=== PATIENT | male | born 1955 | race Caucasian/White ===

== ENCOUNTER 2019-10-27 11:11 | Emergency (ER) | payer MEDICARE, MEDICAID, SELFPAY ==
--- NOTE | ~2019-10-27 | XR_ITS ---
XR forearm RT 2V 10/27/2019 11:34 INDICATION: Right arm pain PROCEDURE: 2 views right forearm COMPARISON: No prior studies for comparison. FINDINGS: Fracture, dislocation or subluxation is not identified. The soft tissues appear within norm al limits. No foreign bodies are identified. IMPRESSION: 1: NO ACUTE BONE OR JOINT ABNORMALITY IDENTIFIED. Reviewed, dictated and finalized at location A. FORM ATTENDANT
[2019-10-27 11:10] VITALS: BP 162/99; PULSE 134; RESP 22; TEMP 36.7; O2SAT 100
--- NOTE | 2019-10-27 11:15 | ED.UPPEXIN ---
HPI - Extremity Injury (Upper) General Chief Complaint: Extremity Injury, Upper Stated Complaint: right arm pain Time Seen by Provider: 10/27/19 11:15 Source: patient Mode of arrival: EMS Limitations: no limitations History of Present Illness HPI narrative: A 64 y/o male presents to the ED, via EMS, with c/o dorsal right forearm pain. Pt states that the right forearm pain started 2 days ago and has been intermittent since. He notes that rubbing the right forearm area alleviates the pain, and moving his right hand aggravates the pain. Pt denies numbness, tingling, and any injury or trauma that could cause the pain. Dr. Dawson is his PCP. He notes that he has chronic CP and has been seen multiple times for the CP. Pt was last seen in his PCP's office last week and was sent to [place] ED at that appointment. Pt lives alone. He is a smoker and has a PMHx of stress. MD complaint: injury to: forearm (Dorsal right) Onset (ago): day(s) (2) Other Extremity Injury: Right: forearm (Dorsal) Other injuries: none Relieving factors: other (Rubbing area) Exacerbating factors: other (Movement of right hand) Associated symptoms: denies other symptoms Related Data Home Medications Medication Instructions Recorded Confirmed Eliquis 5 mg PO BID 09/20/19 10/01/19 atorvastatin 20 mg PO HS 09/20/19 10/01/19 calcium carbonate-vitamin D3 1 tablet PO DAILY 09/20/19 10/01/19 [Calcium 500 + D] cholecalciferol (vitamin D3) 5,000 unit PO DAILY 09/20/19 10/01/19 [Vitamin D3] fluticasone propionate [Allergy 2 spray INTRANASAL DAILY 09/20/19 10/01/19 Relief (fluticasone)] gabapentin 300 mg PO TID 09/20/19 10/01/19 metoprolol tartrate 12.5 mg PO DAILY 09/20/19 10/01/19 omeprazole 20 mg PO DAILY 09/20/19 10/01/19 sertraline 50 mg PO DAILY 09/20/19 10/01/19 tamsulosin 0.4 mg PO DAILY 09/20/19 10/01/19 Spiriva Respimat 2 puff INHALATION DAILY 10/01/19 10/01/19 buspirone 10 mg PO DAILY 10/01/19 10/01/19 folic acid 1 mg PO DAILY 10/01/19 10/01/19 hydrocodone-acetaminophen 1 - 2 tablet PO Q4H PRN 10/01/19 10/01/19 Allergies Allergy/AdvReac Type Severity Reaction Status Date / Time albuterol AdvReac Shakiness Verified 10/27/19 11:39 Review of Systems Review of Systems: All systems reviewed & are unremarkable except as noted in HPI and below Musculoskeletal: Musculoskeletal: Reports other (Dorsal right forearm pain) Neurologic: Denies numbness and Denies tingling PMFSH Past Medical History Medical History A-fib Attempted cardioversion x2 without success Anemia Anxiety Aortic stenosis Atrial flutter Back pain BPH (benign prostatic hyperplasia) Bronchitis Cataracts, bilateral Chest pain, musculoskeletal CHF (congestive heart failure) EF of 50% and impaired diastolic relaxation grade 1 Chronic kidney disease COPD (chronic obstructive pulmonary disease) CVA (cerebral vascular accident) Right side effects Depression DVT (deep venous thrombosis) Emphysema of lung Epistaxis GERD (gastroesophageal reflux disease) Heart attack Hepatitis C History of angina History of rectal polyps HLD (hyperlipidemia) HTN (hypertension) Kidney stones Osteoporosis Pneumonia Tuberculosis Surgical History Surgical History History of appendectomy Hx of cardiac catheterization x2 Hx of spinal surgery Family History Family History Father Family history of coronary artery disease Family history of heart disease in male family member before age 55 Mother Family history of coronary artery disease Family history of heart disease in male family member before age 55 Social History Social History Social History: Lives alone, sister Felisa Jerome helps with his meds. he has 1 son. The patient used to smoke up to 2 packs of cigarettes a day and cut down to 1. He u
[2019-10-27] MEDS: LORAZEPAM 0.5 MG TABLET 1 MG PO (11:40)
[2019-10-27] MEDS: IBUPROFEN 600 MG TABLET PO (11:41)
[2019-10-27 12:11] VITALS: BP 105/87; PULSE 108; RESP 30; O2SAT 98
[2019-10-27] MEDS: METOPROLOL TARTRATE 50 MG TAB 25 MG PO (12:13)
[2019-10-27 12:23] VITALS: BP 121/111; PULSE 116; RESP 22; O2SAT 95
== END 2019-10-27 12:25 | disposition home or self-care (01) ==
PROVIDERS: Emergency Provider Emergency Medicine; PCP Internal Medicine
DX: M79.631 Pain in right forearm (principal); I11.0 Hypertensive heart disease with heart failure; F41.9 Anxiety disorder, unspecified; I48.91 Unspecified atrial fibrillation; Z79.01 Long term (current) use of anticoagulants; I48.92 Unspecified atrial flutter; N40.0 Benign prostatic hyperplasia without lower urinary tract symptoms; I50.9 Heart failure, unspecified; J43.9 Emphysema, unspecified; N28.9 Disorder of kidney and ureter, unspecified; Z86.718 Personal history of other venous thrombosis and embolism; K21.9 Gastro-esophageal reflux disease without esophagitis; I25.2 Old myocardial infarction; E78.5 Hyperlipidemia, unspecified; Z87.442 Personal history of urinary calculi; M81.0 Age-related osteoporosis without current pathological fracture; Z86.19 Personal history of other infectious and parasitic diseases; H26.9 Unspecified cataract; F17.210 Nicotine dependence, cigarettes, uncomplicated
CPT/HCPCS: 73090; 99283; A4565; A9270

== ENCOUNTER 2019-11-29 14:08 | Outpatient (CLI) | payer MEDICARE, OTHER, SELFPAY ==
--- NOTE | ~2019-11-29 | CT_ITS ---
EXAMINATION: CT chest wo con EXAM DATE: 11/29/2019 14:53 INDICATION: Right-sided chest wall pain. Torn muscle follow-up. TECHNIQUE: Spiral CT of the chest without contrast. Axial, coronal and sagittal images were reviewe d. Coronal maximum intensity pixel images of chest reviewed. The dose-length product (DLP) for this examination was 201.57 mGy-cm. The exposure was tailored according to patient size (auto mA exposur e control), and iterative reconstruction (ASIR) was used as additional dose reduction technique. Comp arison is made to prior examination from 10/18/2018. FINDINGS: The lungs are clear. There is mild emphysema. Mildly dilated pulmonary arteries. There are no pleural or pericardial effusions. Tracheobronchial tree is patent. There is no mediastinal, h ilar or axillary lymphadenopathy. There is no pneumothorax. Heart normal in size. There is mild coronary arterial calcification, arterial sclerosis. Suspicion of right middle lobe medial segmental mass measuring about 3 cm, incompletely imaged and in completely evaluated on this noncontrast chest CT. There are subacute right eighth-10th rib fractures laterally. These are new compared to previous exam ination. This is correlate to location of patient's pain? It indicate could more recent reinjury to t hese. There are old right rib fractures. IMPRESSION: 1. Suspicion of left liver lobe mass; CT abdomen pelvis with contrast is recommended. 2. Subacute right eighth-10th rib fractures laterally, can't exclude more recent reinjury given hist ory above. Reviewed, dictated and finalized at location A. MING COACH OR INSTRUCTOR IMPRESSION: 1. Suspicion of left liver lobe mass; CT abdomen pelvis with contrast is recom mended. 2. Subacute right eighth-10th rib fractures laterally, can't exclude more rece nt reinjury given history above.
[2019-11-29 16:43] LABS: Creatinine Urine 118.4 mg/dL; Total Protein Urine Random 64 mg/dL
[2019-11-29 17:05] LABS: MALB Creatinine Ratio 296.9 mg/g (0-30); Microalbumin Urine Random 351.5 mg/L (0-16.7)
== END 2019-11-29 14:09 | disposition home or self-care (01) ==
PROVIDERS: PCP Internal Medicine
DX: R07.89 Other chest pain (principal); R93.2 Abnormal findings on diagnostic imaging of liver and biliary tract; S22.41XA Multiple fractures of ribs, right side, initial encounter for closed fracture
CPT/HCPCS: 71250; 82043; 82570; 84156

== ENCOUNTER 2020-02-01 20:41 | Observation (INO) | payer MEDICARE, OTHER, SELFPAY ==
--- NOTE | ~2020-02-01 | XR_ITS ---
EXAMINATION: XR chest 1V portable EXAM DATE: 02/01/2020 21:11 INDICATION: Generalized chest pain. History of atrial fibrillation and COPD. TECHNIQUE: Portable AP frontal chest x-ray was obtained. Comparison is made to prior examination from 10/16/2019. FINDINGS: The lungs are clear. There are no pleural effusions. Cardiac silhouette is prominent but magnified on this AP technique. There is no pneumothorax suspected. Multiple old rib fractures. IMPRESSION: No acute cardiopulmonary findings. Reviewed, dictated and finalized at location G.
[2020-02-01 20:39] VITALS: BP 123/83; PULSE 97; RESP 20; TEMP 36.8; O2SAT 97
[2020-02-01 20:43] VITALS: O2SAT 97
--- NOTE | 2020-02-01 20:44 | ECG_ITS ---
Measurements Intervals [place] Rate: 82 P: [place]: 0 QRS: -55 QRSD: 183 T: 66 QT: 413 QTc: 484 Interpretive Statements ATRIAL FLUTTER/TACHYCARDIA RIGHT BUNDLE BRANCH BLOCK LEFT ANTERIOR FASCICULAR BLOCK CANNOT RULE OUT SEPTAL INFARCT, AGE INDETERMINATE BASELINE ARTIFACT- I, II, AVR ABNORMAL ECG Electronically Signed On 02-02-2020 8:06:31 CDT by Filippo Greenwood D.O.
--- NOTE | 2020-02-01 20:49 | ED.GENADULT ---
HPI - General Adult General Chief complaint: Chest Pain Stated complaint: CP Source: patient and EMS Mode of arrival: EMS Limitations: intoxication History of Present Illness HPI narrative: Patient is a 64-year-old male with a history of SD, atrial fibrillation, who presents for evaluation of chest pain. Patient reports chest pain began around noon today, while he was driving up to [place]. Patient reports that he has been drinking 2 beers today, although at the time of assessment, patient is quite intoxicated. When asked if the pain is described as a pressure if it radiates, patient continues to laugh, reports that the pain is constant over his chest. He denies new jaw or arm pain. No back pain. He denies ripping or tearing sensation to the lower flanks. Patient is quite intoxicated, history that is reliable is difficult to obtain at this time. Patient had Nitropaste applied by EMS and was given a full dose aspirin. Related Data Home Medications Medication Instructions Recorded Confirmed Eliquis 5 mg PO BID 09/20/19 10/01/19 atorvastatin 20 mg PO HS 09/20/19 10/01/19 calcium carbonate-vitamin D3 1 tablet PO DAILY 09/20/19 10/01/19 [Calcium 500 + D] cholecalciferol (vitamin D3) 5,000 unit PO DAILY 09/20/19 10/01/19 [Vitamin D3] fluticasone propionate [Allergy 2 spray INTRANASAL DAILY 09/20/19 10/01/19 Relief (fluticasone)] gabapentin 300 mg PO TID 09/20/19 10/01/19 metoprolol tartrate 12.5 mg PO DAILY 09/20/19 10/01/19 omeprazole 20 mg PO DAILY 09/20/19 10/01/19 sertraline 50 mg PO DAILY 09/20/19 10/01/19 tamsulosin 0.4 mg PO DAILY 09/20/19 10/01/19 Spiriva Respimat 2 puff INHALATION DAILY 10/01/19 10/01/19 buspirone 10 mg PO DAILY 10/01/19 10/01/19 folic acid 1 mg PO DAILY 10/01/19 10/01/19 hydrocodone-acetaminophen 1 - 2 tablet PO Q4H PRN 10/01/19 10/01/19 Allergies Allergy/AdvReac Type Severity Reaction Status Date / Time albuterol AdvReac Shakiness Verified 02/01/20 20:43 Review of Systems Review of Systems: Narrative: CONSTITUTIONAL: Denies fever EYES: Denies visual changes ENT: Denies rhinorrhea, congestion, sore throat, or otalgia. CARDIOVASCULAR: Reports chest pain RESPIRATORY: Denies cough or dyspnea. GASTROINTESTINAL: Denies abdominal pain, nausea, vomiting, or diarrhea. GENITOURINARY: Denies dysuria or hematuria. SKIN: Denies rash or itching. MUSCULOSKELETAL: Denies back pain, reports chronic shoulder pain NEUROLOGIC: Denies headache, numbness, or weakness. ROS unobtainable: Yes other (Unable to obtain fully due to intoxication) [facility], [facility] Past Medical History Medical History A-fib Attempted cardioversion x2 without success Anemia Anxiety Aortic stenosis Atrial flutter Back pain BPH (benign prostatic hyperplasia) Bronchitis Cataracts, bilateral Chest pain, musculoskeletal CHF (congestive heart failure) EF of 50% and impaired diastolic relaxation grade 1 Chronic kidney disease COPD (chronic obstructive pulmonary disease) CVA (cerebral vascular accident) Right side effects Depression DVT (deep venous thrombosis) Emphysema of lung Epistaxis GERD (gastroesophageal reflux disease) Heart attack Hepatitis C History of angina History of rectal polyps HLD (hyperlipidemia) HTN (hypertension) Kidney stones Osteoporosis Pneumonia Tuberculosis Surgical History Surgical History History of appendectomy Hx of cardiac catheterization x2 Hx of spinal surgery Family History Family History Father Family history of coronary artery disease Family history of heart disease in male family member before age 55 Mother Family history of coronary artery disease Family history of heart disease in male family member before age 55 Social History Social History Social History:
--- NOTE | 2020-02-01 20:56 | ECG_ITS ---
Measurements Intervals [place] Rate: 100 P: NE: 0 QRS: -82 QRSD: 166 T: 38 QT: 409 QTc: 529 Interpretive Statements ATRIAL FLUTTER/TACHYCARDIA WITH RAPID VENTRICULAR RESPONSE RIGHT BUNDLE BRANCH BLOCK LEFT ANTERIOR FASCICULAR BLOCK ABNORMAL ECG Electronically Signed On 02-02-2020 8:07:05 CDT by Filippo Greenwood D.O.
[2020-02-01 21:05] LABS: Basophils Absolute Auto 0.1 K/mm3 (0.0-0.1); Basophils Percent Auto 1.3 % (0.2-1.2); Eosinophils Absolute Auto 0.2 K/mm3 (0-0.3); Eosinophils Percent Auto 2.4 % (0-4.4); Hematocrit 41.3 % (42.0-52.0); Hemoglobin 13.6 g/dL (14.0-18.0); Immature Granulocyte Absolute 0.03 K/mm3 (0.00-0.031); Immature Granulocyte Percent A 0.4 % (0-0.5); Lymphocytes Absolute Auto 2.13 K/mm3 (0.9-3.2); Lymphocytes Percent Auto 29.7 % (18.3-44.2); Mean Corpuscular HGB Conc 32.9 g/dl (32-36); Mean Corpuscular Hemoglobin 32.2 pg (26-34); Mean Corpuscular Volume 97.9 fl (80-100); Monocytes Absolute Auto 0.4 K/mm3 (0.1-0.6); Monocytes Percent Auto 5.9 % (2.6-8.5); Neutrophils Absolute Auto 4.3 K/mm3 (1.3-6.7); Neutrophils Percent Auto 60.3 % (45.5-73.1); Platelet Count Result 156 k/mm3 (150-375); Red Blood Count 4.22 M/mm3 (4.6-6.20); Red Cell Distribution Width 14.5 % (11.5-14.5); White Blood Count 7.2 K/mm3 (4.5-10.0)
[2020-02-01] MEDS: MORPHINE SULFATE 4 MG/ML INJ IV PUSH (21:12)
[2020-02-01] MEDS: ONDANSETRON INJ 4 MG/2 ML VIAL IV PUSH (21:12)
[2020-02-01 21:14] LABS: INR 1.2; Prothrombin Time 14.5 Seconds (11.1-14.7)
[2020-02-01 21:15] LABS: Partial Thromboplastin Time 32.1 SECONDS (22.3-36.8)
[2020-02-01 21:16] LABS: Ethanol 112 mg/dL (<10)
[2020-02-01 21:17] LABS: Blood Urea Nitrogen 25 mg/dL (9-20); Calcium 9.2 mg/dL (8.4-10.2); Carbon Dioxide 22 mmol/L (22-30); Chloride 104 mmol/L (98-107); Estimated Glomerular Filt Rate 47; Glucose 91 mg/dL (75-110); Potassium 3.7 mmol/L (3.4-5.0); Sodium 136 mmol/L (137-145)
[2020-02-01 21:27] VITALS: BP 104/89; PULSE 99; RESP 20; O2SAT 95
[2020-02-01 21:29] LABS: NT Pro B Type Natriuretic Pept 1030 PG/ML (5-100); Troponin I < 0.012 ng/mL (0.000-0.034)
[2020-02-01 21:31] LABS: Amphetamine Screen Urine Negative (Negative); Barbiturate Screen Urine Negative (Negative); Benzodiazepines Screen Urine Positive (Negative); Cannabinoid Screen Urine Positive (Negative); Cocaine Screen Urine Negative (Negative); Methadone Screen Urine Negative (Negative); Opiate Screen Urine Negative (Negative); Phencyclidine Screen Urine Negative (Negative)
[2020-02-01] MEDS: HEPARIN SODIUM 5,000 UNITS/ML VIAL 4000 UNITS IV PUSH (21:54)
[2020-02-01] MEDS: HEPARIN SOD/D5W 100 UNITS/ML 25,000 UNITS/250 ML BAG 9 UNITS IV CONT (21:55)
[2020-02-01 22:45] VITALS: BP 108/60; PULSE 100; RESP 20; TEMP 36.8; O2SAT 97
[2020-02-01 22:49] VITALS: BP 137/83; PULSE 99; RESP 18; TEMP 36.1; O2SAT 96
[2020-02-01 23:14] VITALS: BMI 23.6
[2020-02-01 23:20] VITALS: BMI 23.6
--- NOTE | 2020-02-01 23:28 | PM.IMHP ---
H&P: HPI History of Present Illness Chief complaint: Chest Pain Narrative: This is a pleasant 64 year old male with known history of atrial flutter/fibrillation on Eliquis therapy, aortic stenosis, chronic respiratory failure on 2L of oxygen at home, CHF, among other comorbidities who presented to the hospital [facility] with a complaint of right sided chest pain that started today around noon while he was driving. The patient reports that he has chest pain almost daily. His right sided chest pain also seems to affect his right shoulder and right arm. Associated symptoms included mild shortness of breath and nausea. His chest pain subsides with rest and is brought on with any movement of his right arm. The patient was last evaluated by Cardiology at our hospital in September of this year. The patient was given nitro in the ER tonight but continues to have mild right sided chest pain. ER provider has consulted Cardiology and the patient has been started on a heparin IV drip. Review of Systems Review of Systems: All systems reviewed & are unremarkable except as noted in HPI and below PMFSH Past Medical History Medical History A-fib Attempted cardioversion x2 without success Anemia Anxiety Aortic stenosis Atrial flutter Back pain BPH (benign prostatic hyperplasia) Bronchitis Cataracts, bilateral Chest pain, musculoskeletal CHF (congestive heart failure) EF of 50% and impaired diastolic relaxation grade 1 Chronic kidney disease COPD (chronic obstructive pulmonary disease) CVA (cerebral vascular accident) Right side effects Depression DVT (deep venous thrombosis) Emphysema of lung Epistaxis GERD (gastroesophageal reflux disease) Heart attack Hepatitis C History of angina History of rectal polyps HLD (hyperlipidemia) HTN (hypertension) Kidney stones Osteoporosis Pneumonia Tuberculosis Surgical History Surgical History History of appendectomy Hx of cardiac catheterization x2 Hx of spinal surgery Family History Family History Father Family history of coronary artery disease Family history of heart disease in male family member before age 55 Mother Family history of coronary artery disease Family history of heart disease in male family member before age 55 Social History Social History Social History: Lives alone, sister Felisa Jerome helps with his meds. he has 1 son. The patient used to smoke up to 2 packs of cigarettes a day and cut down to 1. He uses marijuana often. He retired from [employer] Smoking packs per day: 1 Smoking cigarettes per day: 20.0 Years smoked: 40 Smoking pack-years: 40.00 Smoking status: Heavy tobacco smoker Tobacco type: cigarettes Second hand tobacco smoke exposure: No Alcohol intake: former Substance use: current Substance use type: marijuana Last use: today Gender identity (if verbalized by the patient): Male Spiritual care concerns: No Agree to blood products: Yes Meds Home Medications and Allergies Home Medications Medication Instructions Recorded Confirmed Type Eliquis 5 mg PO BID 09/20/19 02/01/20 History atorvastatin 20 mg PO HS 09/20/19 02/01/20 History calcium carbonate-vitamin D3 1 tablet PO DAILY 09/20/19 02/01/20 History [Calcium 500 + D] cholecalciferol (vitamin D3) 5,000 unit PO DAILY 09/20/19 02/01/20 History [Vitamin D3] diltiazem HCl [Cardizem CD] 120 mg PO BID #60 cap 09/20/19 02/01/20 Rx fluticasone propionate [Allergy 2 spray INTRANASAL DAILY 09/20/19 02/01/20 History Relief (fluticasone)] gabapentin 300 mg PO TID 09/20/19 02/01/20 History metoprolol tartrate 12.5 mg PO BID 09/20/19 02/01/20 History omeprazole 20 mg PO DAILY 09/20/19 02/01/20 History sertraline 50 mg PO DAILY 08/26
--- NOTE | 2020-02-01 23:37 | PC.NURSE ---
This patient, Guero Ahmadi, was admitted to IMU Room 201-01. Patient/family oriented to hospital policies and general routines including ID bracelet, bed and alarms, visiting hours, pain management, procedures, bathroom and other care routines, personal items, smoking policy, room service/diet, and visiting hours. Valuables list has been completed. Information on how to activate the Rapid Response Team has been discussed. Patient/Family are encouraged to report perceived risks to care and to ask questions if they do not understand what they are told or what they should do.
--- NOTE | 2020-02-01 23:43 | ECG_ITS ---
Measurements Intervals [place] Rate: 104 P: [place]: 0 QRS: -87 QRSD: 176 T: 61 QT: 393 QTc: 519 Interpretive Statements ATRIAL FLUTTER/TACHYCARDIA WITH RAPID VENTRICULAR RESPONSE RIGHT BUNDLE BRANCH BLOCK LEFT ANTERIOR FASCICULAR BLOCK CANNOT RULE OUT SEPTAL INFARCT, AGE INDETERMINATE BASELINE WANDER- V6 ABNORMAL ECG Electronically Signed On 02-02-2020 8:09:18 CDT by Filippo Greenwood D.O.
[2020-02-02] VITALS (11 sets, daily range): BP systolic 93–132; BP diastolic 60–84; PULSE 61–115; RESP 12–20; TEMP 35.8–36.2; O2SAT 90–97
[2020-02-02] MEDS: METOPROLOL TARTRATE 12.5 MG TABLET PO ×2 (00:16→08:11)
[2020-02-02] MEDS: ATORVASTATIN 20 MG TABLET PO (00:17)
[2020-02-02] MEDS: NITROGLYCERIN OINTMENT 1 INCH DOSE TRANSDERM ×2 (00:17→05:45)
[2020-02-02] MEDS: busPIRone HCL 10 MG TABLET PO ×2 (00:17→08:13)
[2020-02-02] MEDS: LORAZEPAM 0.5 MG TABLET PO (00:17)
[2020-02-02 00:20] LABS: Troponin I < 0.012 ng/mL (0.000-0.034)
[2020-02-02 03:38] LABS: Basophils Absolute Auto 0.1 K/mm3 (0.0-0.1); Basophils Percent Auto 1.1 % (0.2-1.2); Eosinophils Absolute Auto 0.3 K/mm3 (0-0.3); Eosinophils Percent Auto 3.9 % (0-4.4); Hematocrit 37.2 % (42.0-52.0); Hemoglobin 12.3 g/dL (14.0-18.0); Immature Granulocyte Absolute 0.03 K/mm3 (0.00-0.031); Immature Granulocyte Percent A 0.5 % (0-0.5); Lymphocytes Absolute Auto 2.64 K/mm3 (0.9-3.2); Lymphocytes Percent Auto 40.7 % (18.3-44.2); Mean Corpuscular HGB Conc 33.1 g/dl (32-36); Mean Corpuscular Hemoglobin 32.2 pg (26-34); Mean Corpuscular Volume 97.4 fl (80-100); Mean Platelet Volume 10.3 fl (7.4-10.4); Monocytes Absolute Auto 0.3 K/mm3 (0.1-0.6); Monocytes Percent Auto 5.2 % (2.6-8.5); Neutrophils Absolute Auto 3.2 K/mm3 (1.3-6.7); Neutrophils Percent Auto 48.6 % (45.5-73.1); Platelet Count Result 154 k/mm3 (150-375); Red Blood Count 3.82 M/mm3 (4.6-6.20); Red Cell Distribution Width 14.4 % (11.5-14.5); White Blood Count 6.5 K/mm3 (4.5-10.0)
[2020-02-02 03:51] LABS: Blood Urea Nitrogen 24 mg/dL (9-20); Calcium 8.6 mg/dL (8.4-10.2); Carbon Dioxide 21 mmol/L (22-30); Chloride 109 mmol/L (98-107); Cholesterol 97 mg/dL (0-200); Estimated CRCL calculation 46 ml/min; Estimated Glomerular Filt Rate 51; Glucose 113 mg/dL (75-110); HDL Direct 38 mg/dL; Sodium 136 mmol/L (137-145); Triglycerides 104 mg/dL (<150)
[2020-02-02 03:54] LABS: Partial Thromboplastin Time 139.4 SECONDS (22.3-36.8)
[2020-02-02 04:02] LABS: LDL Cholesterol Direct 40 mg/dL
[2020-02-02 04:03] LABS: Troponin I < 0.012 ng/mL (0.000-0.034)
[2020-02-02] MEDS: CHOLECALCIFEROL 1,000 UNIT TABLET 5000 UNITS PO (08:11)
[2020-02-02] MEDS: FOLIC ACID 1 MG TABLET PO (08:12)
[2020-02-02] MEDS: ASPIRIN 325 MG TABLET PO (08:12)
[2020-02-02] MEDS: PANTOPRAZOLE 40 MG TABLET PO (08:12)
[2020-02-02] MEDS: SERTRALINE HCL 50 MG TABLET PO (08:13)
[2020-02-02] MEDS: TAMSULOSIN HCL 0.4 MG CAPSULE PO (08:13)
--- NOTE | 2020-02-02 09:33 | WPDCN ---
Assessment and Plan Assessment and plan (1) Chest pain, musculoskeletal: Code(s): R07.89 - Other chest pain Status: Acute Assessment and Plan: Patient has a long history of chronic right-sided chest pain which is partly due to history of rib fractures on the right (patient cannot recall how he got the rib fractures), chronic coughing from COPD, and cervical radiculopathy for which he sees is seen by pain management. No evidence of ACS. OK to stop ASA, heparin, NTP. Okay for discharge from my point of view. Has FU OV scheduled w/ me in the near future. (2) Atrial flutter: Code(s): I48.92 - Unspecified atrial flutter Status: Acute Assessment and Plan: Long history of atrial fibrillation/atrial flutter which I suspect is persistent at this point. Dates back to 2016 at least, had a couple cardioversions around that time. Heart rate has been difficult to control but this is also partly due to the patient's noncompliance with medications. Adequate heart rate control on this hospitalization. (3) COPD (chronic obstructive pulmonary disease): Qualifiers: COPD type: unspecified COPD Qualified Code(s): J44.9 - Chronic obstructive pulmonary disease, unspecified Code(s): J44.9 - Chronic obstructive pulmonary disease, unspecified Status: Chronic Assessment and Plan: Complains of shortness of breath, cough. Smokes 1 pack a day. Normal white count, afebrile, good oxygenation. Recommend continue inhalers. (4) Liver lesion: Code(s): K76.9 - Liver disease, unspecified Status: Acute Assessment and Plan: Patient may not have gotten the CT scan that was scheduled earlier this week. Follow-up with Dr. Maguire to reschedule. (5) Noncompliance: Code(s): Z91.19 - Patient's noncompliance with other medical treatment and regimen Status: Acute Assessment and Plan: Patient has some dementia and is sister, Felisa, expresses concern in frustration. Even though she lays out his medicines for him he forgets to take them. He currently lives alone. HPI Data of Consult Date/Time: 02/02/20 09:33 Requesting Physician: Jose Orlando MD Primary Care Provider: Andrew Dawson, Consult Narrative Narrative: Date of service: 02/02/2020 Guero Ahmadi is a 64 year old male whom we were asked to see at the request of Dr. Figueroa for our advice and opinion regarding his chest discomfort in consultation. We have seen Mr. Ahmadi before in the hospital and in the office. He has a long history of persistent? atrial fib/flutter, chronic musculoskeletal chest pain (rib fractures noted in November 2019, cervical radiculopathy followed by pain management), COPD and dementia. The patent the history was obtained from [facility] EMR, [employer], the patient, and the patient's sister Felisa as the patient is a poor historian due to his cognitive dysfunction. The patient says he has not felt good for a couple days and has had increasing shortness of breath with a mild productive cough but no fevers or chills. He coughs very hard times, which is sister thinks aggravates his rib fractures. Apparently yesterday he was having chest pain which was worse than usual and he was worried he was having a heart attack so he called 911. In the emergency room there was concern he might be a STEMI and there was discussion with our interventionalist, Dr. Kay, but it was decided he was not a STEMI. He was admitted with a heparin drip and nitro paste. He has had chest pain all yesterday through the night and this morning. He was noted to be inebriated in the emergency room although hesays he only drinks 2 beers yesterday. It hurts to breathe, hurts to move, it is tender to touch. The patient was hospitalized here in October 14
--- NOTE | 2020-02-02 10:02 | PM.IMPN ---
Progress Note: A&P Assessment and Plan (1) Chest pain: Qualifiers: Chest pain type: unspecified Qualified Code(s): R07.9 - Chest pain, unspecified Code(s): R07.9 - Chest pain, unspecified Status: Acute Assessment and Plan: Appears to be musculoskeletal at this point. Serial troponin levels are negative. Cardiology consulted appreciate input. Discussed with Cardiology. Discontinue heparin drip which was started in ER. Will discharge home today on usual medications. (2) Atrial flutter: Qualifiers: Atrial flutter type: unspecified Qualified Code(s): I48.92 - Unspecified atrial flutter Code(s): I48.92 - Unspecified atrial flutter Status: Acute Assessment and Plan: EKGs reviewed and all with atrial flutter. Telemetry reviewed on 02/02/2020 with atrial flutter with heart rate acceptable. Continue metoprolol and diltiazem. (3) COPD (chronic obstructive pulmonary disease): Qualifiers: COPD type: unspecified COPD Qualified Code(s): J44.9 - Chronic obstructive pulmonary disease, unspecified Code(s): J44.9 - Chronic obstructive pulmonary disease, unspecified Status: Chronic Assessment and Plan: No exacerbation. Presently on room air. Will monitor. (4) HTN (hypertension): Qualifiers: Hypertension type: unspecified Qualified Code(s): I10 - Essential (primary) hypertension Code(s): I10 - Essential (primary) hypertension Status: Chronic Assessment and Plan: Blood pressure reviewed on 02/02/2020 and stable. Continue diltiazem and metoprolol. (5) CHF (congestive heart failure): Qualifiers: Heart failure chronicity: chronic Heart failure type: diastolic Qualified Code(s): I50.32 - Chronic diastolic (congestive) heart failure Code(s): I50.9 - Heart failure, unspecified Status: Chronic Assessment and Plan: No exacerbation. Remains on metoprolol. (6) Chronic kidney disease: Qualifiers: Chronic kidney disease stage: stage 3 (moderate) Qualified Code(s): N18.3 - Chronic kidney disease, stage 3 (moderate) Code(s): N18.9 - Chronic kidney disease, unspecified Status: Chronic Assessment and Plan: Creatinine stable at 1.40 today. Follow as outpatient. (7) Liver lesion: Code(s): K76.9 - Liver disease, unspecified Status: Acute Assessment and Plan: Was to CT in his past in follow-up but patient did not complete. Will need to follow as outpatient. (8) Noncompliance: Code(s): Z91.19 - Patient's noncompliance with other medical treatment and regimen Status: Acute Assessment and Plan: Known issues with sister helping with medication. (9) DVT prophylaxis: Code(s): Z29.9 - Encounter for prophylactic measures, unspecified Status: Acute Assessment and Plan: Placed on heparin drip on presentation. Time Spent With Patient Time with patient: 15 - 25 minutes Subjective Date/time seen: 02/02/20 10:02 Interval history: Date of Service: 02/02/2020. Admitted with right-sided chest pain. Patient with known chronic chest pain. Was also noted to be intoxicated on presentation to the emergency room. Still has some right-sided chest pain today but reports is tender to palpation. No left-sided chest pain. Some cough but no shortness of breath. No abdominal pain. No headache or dizziness. Review of Systems Constitutional: Constitutional: Denies chills and Denies fever(s) ENT: Denies dysphagia Cardiovascular: Cardiovascular: Reports chest pain (Right-sided) Respiratory: Respiratory: Reports cough and Denies dyspnea Gastrointestinal: Gastrointestinal: Denies abdominal pain, Denies nausea and Denies vomiting Genitourinary: Genitourinary: Reports no additional male genitourinary complaints Musculoskeletal: Comments: right-sided chest tenderness Integumentary/Breasts: Skin/Breast: De
--- NOTE | 2020-02-02 10:39 | PM.DS ---
DS: Diagnosis Admitting Diagnosis Admitting Diagnosis: Chest pain, unspecified Discharge Diagnosis (1) Chest pain: Qualifiers: Chest pain type: unspecified Qualified Code(s): R07.9 - Chest pain, unspecified Code(s): R07.9 - Chest pain, unspecified Status: Acute (2) Atrial flutter: Qualifiers: Atrial flutter type: unspecified Qualified Code(s): I48.92 - Unspecified atrial flutter Code(s): I48.92 - Unspecified atrial flutter Status: Acute (3) COPD (chronic obstructive pulmonary disease): Qualifiers: COPD type: unspecified COPD Qualified Code(s): J44.9 - Chronic obstructive pulmonary disease, unspecified Code(s): J44.9 - Chronic obstructive pulmonary disease, unspecified Status: Chronic (4) HTN (hypertension): Qualifiers: Hypertension type: unspecified Qualified Code(s): I10 - Essential (primary) hypertension Code(s): I10 - Essential (primary) hypertension Status: Chronic (5) CHF (congestive heart failure): Qualifiers: Heart failure chronicity: chronic Heart failure type: diastolic Qualified Code(s): I50.32 - Chronic diastolic (congestive) heart failure Code(s): I50.9 - Heart failure, unspecified Status: Chronic (6) Chronic kidney disease: Qualifiers: Chronic kidney disease stage: stage 3 (moderate) Qualified Code(s): N18.3 - Chronic kidney disease, stage 3 (moderate) Code(s): N18.9 - Chronic kidney disease, unspecified Status: Chronic (7) Liver lesion: Code(s): K76.9 - Liver disease, unspecified Status: Acute (8) Noncompliance: Code(s): Z91.19 - Patient's noncompliance with other medical treatment and regimen Status: Acute DS: Summary Hospital Course Reason for hospitalization: Right-sided chest pain. Hospital Course: Date of Service of Discharge: February 02, 2020. History of Present Illness: Patient is a pleasant 64-year-old gentleman with known history of atrial flutter/fibrillation, aortic stenosis, COPD with chronic respiratory failure, CHF as well as several other comorbidities present to the emergency room with complaint of right-sided chest pain starting approximately noon while he was driving. Patient reports he has chest pain almost daily. His right-sided chest pain seems to affect his right shoulder and right arm. Chest pain is associated with mild shortness of breath and nausea. Chest pain subsides with rest and is brought on with any movement of his right arm. No recent fever, sweats or chills. No headache or dizziness. No abdominal pain, nausea or vomiting. On presentation to the emergency room, patient was given nitroglycerin. Concern for changes on EKG. Cardiology was consulted from the emergency. After consultation with Cardiology, STEMI was not called but decision was made to place patient on IV heparin and place in observation for further evaluation and treatment. Course in Hospital: Patient was placed in the IMU where he remained for the duration of his stay. He did have serial EKGs drawn with no significant changes from previous EKGs on further evaluation by Cardiology. Patient noted to be in atrial flutter on all EKGs with mild tachycardia. Patient did continue to have right-sided chest pain which was reproducible with palpation. Serial troponin levels were obtained and all negative. He was seen in consultation by Cardiology on 02/02/2020 with patient felt to be at his baseline and in no need of further inpatient care. Nitroglycerin as well as IV heparin were discontinued. He was resumed on his home medication. Plan was to follow-up with cardiology as an outpatient. Patient's blood pressure was monitored while in hospital and stable on home diltiazem and metoprolol. He had no exacerbation of his heart failure with plan to continue diuretic at home. Kidney function remained at his baseline with no worsening. He additio
[2020-02-02 11:13] LABS: Partial Thromboplastin Time 54.1 SECONDS (22.3-36.8)
== END 2020-02-02 12:05 | disposition home or self-care (01) ==
LOC: ANHED 22:07 → ANHIMU 22:27 → ANHICU 02-04 09:46 → ANHIMU 02-04 09:46
PROVIDERS: Admitting Provider Family Medicine; Emergency Provider Emergency Medicine; PCP Internal Medicine; Visit Provider Hospitalist
DX: R07.9 Chest pain, unspecified (principal); I48.92 Unspecified atrial flutter; I48.91 Unspecified atrial fibrillation; J43.9 Emphysema, unspecified; J96.10 Chronic respiratory failure, unspecified whether with hypoxia or hypercapnia; Z99.81 Dependence on supplemental oxygen; I13.0 Hypertensive heart and chronic kidney disease with heart failure and stage 1 through stage 4 chronic kidney disease, or unspecified chronic kidney disease; I50.32 Chronic diastolic (congestive) heart failure; N18.3 Chronic kidney disease, stage 3 (moderate); K76.9 Liver disease, unspecified; F10.129 Alcohol abuse with intoxication, unspecified; I35.0 Nonrheumatic aortic (valve) stenosis; F03.90 Unspecified dementia, unspecified severity, without behavioral disturbance, psychotic disturbance, mood disturbance, and anxiety; F17.210 Nicotine dependence, cigarettes, uncomplicated; M54.12 Radiculopathy, cervical region; Z79.01 Long term (current) use of anticoagulants; Z79.899 Other long term (current) drug therapy; Z91.19 Patient's noncompliance with other medical treatment and regimen
CPT/HCPCS: 36415; 71045; 80048; 80061; 80307; 83880; 84484; 85025; 85610; 85730; 93005; 96365; 96366; 96375; 99285; A9270; G0378; J1644; J2270; J2405; J3010

== ENCOUNTER 2020-10-14 12:52 | Emergency (ER) | payer MEDICARE, MEDICAID, SELFPAY ==
[2020-10-14] VITALS (13 sets, daily range): BP systolic 100–148; BP diastolic 77–136; PULSE 104–183; RESP 15–23; TEMP 36.7; O2SAT 95–98
--- NOTE | ~2020-10-14 | XR_ITS ---
EXAMINATION: XR chest 2V DATE: 10/14/2020 13:42 INDICATION: Shortness of breath. Arrhythmia. TECHNIQUE: Frontal and lateral views of the chest were obtained. COMPARISON: Chest single view 02/01/2020, chest 2 views 10/16/2019 FINDINGS: Calcified pulmonary nodules and calcified hilar lymph nodes are consistent with old granulo matous disease. No pleural effusion or pneumothorax. The heart size is normal. There are old healed r ib fractures bilaterally. There are multiple chronic vertebral body fractures. IMPRESSION: 1. No acute cardiopulmonary disease. Reviewed, dictated and finalized at location B. M PROCESSING SPECIALIST
[2020-10-14] MEDS: dilTIAZem HCl INJ 25 MG/5 ML VIAL 10 MG IV PUSH ×2 (13:36→13:55)
[2020-10-14 13:48] LABS: Basophils Absolute Auto 0.1 K/mm3 (0.0-0.1); Basophils Percent Auto 0.7 % (0.2-1.2); Eosinophils Percent Auto 0.5 % (0-4.4); Hematocrit 47.4 % (42.0-52.0); Hemoglobin 16.2 g/dL (14.0-18.0); Immature Granulocyte Absolute 0.06 K/mm3 (0.00-0.031); Immature Granulocyte Percent A 0.7 % (0-0.5); Lymphocytes Absolute Auto 1.49 K/mm3 (0.9-3.2); Lymphocytes Percent Auto 16.9 % (18.3-44.2); Mean Corpuscular HGB Conc 34.2 g/dl (32-36); Mean Corpuscular Hemoglobin 32.7 pg (26-34); Mean Corpuscular Volume 95.8 fl (80-100); Mean Platelet Volume 10.1 fl (7.4-10.4); Monocytes Absolute Auto 0.5 K/mm3 (0.1-0.6); Monocytes Percent Auto 5.8 % (2.6-8.5); Neutrophils Absolute Auto 6.7 K/mm3 (1.3-6.7); Neutrophils Percent Auto 75.4 % (45.5-73.1); Platelet Count Result 203 k/mm3 (150-375); Red Blood Count 4.95 M/mm3 (4.6-6.20); Red Cell Distribution Width 14.2 % (11.5-14.5); White Blood Count 8.8 K/mm3 (4.5-10.0)
[2020-10-14 13:58] LABS: Alanine Aminotransferase 13 U/L (4-50); Albumin Level 4.6 g/dL (3.5-5.1); Alkaline Phosphatase 147 U/L (38-126); Anion Gap 13 mmol/L (8-16); Aspartate Amino Transferase 24 U/L (17-59); Bilirubin,Total 0.7 mg/dL (0.2-1.3); Blood Urea Nitrogen 31 mg/dL (9-20); Calcium 9.7 mg/dL (8.4-10.2); Carbon Dioxide 20 mmol/L (22-30); Chloride 106 mmol/L (98-107); Estimated CRCL calculation 26 ml/min; Estimated Glomerular Filt Rate 32; Glucose 118 mg/dL (75-110); Potassium 4.1 mmol/L (3.4-5.0); Sodium 139 mmol/L (137-145)
[2020-10-14 14:00] LABS: Prothrombin Time 14.1 Seconds (11.1-14.7)
[2020-10-14 14:01] LABS: Partial Thromboplastin Time 30.3 SECONDS (22.3-36.8)
[2020-10-14 14:06] LABS: NT Pro B Type Natriuretic Pept 4260 PG/ML (5-100)
--- NOTE | 2020-10-14 14:29 | ED.GENADULT ---
HPI - General Adult General Chief complaint: Chest Pain Stated complaint: chest pain Time Seen by Provider: 10/14/20 12:55 History of Present Illness HPI narrative: Patient is a 65-year-old male who presents to the ER with reports of shortness of breath. Ongoing for last 2 to 3 days. Reports spotty compliance with his home medications but reports he is taking his medications to control his heart rate and to get fluid off his body. No chest pain or chest pressure. No fevers or chills or sweats. Denies productive cough. Has history of atrial fibrillation that is been hard to control due to medical noncompliance. Related Data Home Medications Medication Instructions Recorded Confirmed Eliquis 5 mg PO BID 09/20/19 02/01/20 atorvastatin 20 mg PO HS 09/20/19 02/01/20 calcium carbonate-vitamin D3 1 tablet PO DAILY 09/20/19 02/01/20 [Calcium 500 + D] cholecalciferol (vitamin D3) 5,000 unit PO DAILY 09/20/19 02/01/20 [Vitamin D3] fluticasone propionate [Allergy 2 spray INTRANASAL DAILY 09/20/19 02/01/20 Relief (fluticasone)] gabapentin 300 mg PO TID 09/20/19 02/01/20 metoprolol tartrate 12.5 mg PO BID 09/20/19 02/01/20 omeprazole 20 mg PO DAILY 09/20/19 02/01/20 sertraline 50 mg PO DAILY 09/20/19 02/01/20 tamsulosin 0.4 mg PO DAILY 09/20/19 02/01/20 Spiriva Respimat 2 puff INHALATION DAILY 10/01/19 02/01/20 folic acid 1 mg PO DAILY 10/01/19 02/01/20 cyanocobalamin (vitamin B-12) 1,000 mcg IM MONTHLY 02/01/20 02/02/20 furosemide 40 mg PO DAILY PRN 02/01/20 02/01/20 nitroglycerin 0.4 mg SUBLINGUAL Q5MIN PRN 02/01/20 02/01/20 Allergies Allergy/AdvReac Type Severity Reaction Status Date / Time albuterol AdvReac Shakiness Verified 10/14/20 15:14 Review of Systems Review of Systems: All systems reviewed & are unremarkable except as noted in HPI and below Constitutional: Constitutional: Denies chills, Denies fever(s) and Denies weakness ENT: Denies nasal congestion and Denies sore throat Cardiovascular: Cardiovascular: Denies chest pain, Reports rapid heart rate and Denies radiating jaw, neck or arm pain Respiratory: Respiratory: Denies cough, Reports dyspnea and Denies wheezing Gastrointestinal: Gastrointestinal: Denies nausea and Denies vomiting Neurologic: Reports dizziness, Denies focal weakness and Denies numbness PMFSH Past Medical History Medical History (Updated 10/14/20 @ 15:29 by Kike Feliciano MD) A-fib Attempted cardioversion x2 without success Anemia Anxiety Aortic stenosis Atrial flutter Back pain BPH (benign prostatic hyperplasia) Bronchitis Cataracts, bilateral Chest pain, musculoskeletal CHF (congestive heart failure) EF of 50% and impaired diastolic relaxation grade 1 Chronic kidney disease COPD (chronic obstructive pulmonary disease) CVA (cerebral vascular accident) Right side effects Depression DVT (deep venous thrombosis) Emphysema of lung Epistaxis GERD (gastroesophageal reflux disease) Heart attack Pt reports old [place] but I could ot find any documentation i Epic, Care Everywhere, etc. Cardiac cath 2016 showed normal coronary arteries. Hepatitis C History of angina History of rectal polyps HLD (hyperlipidemia) HTN (hypertension) Kidney stones Osteoporosis Pneumonia Tuberculosis Surgical History Surgical History History of appendectomy Hx of cardiac catheterization x2 Hx of spinal surgery Family History Family History Father Family history of coronary artery disease Family history of heart disease in male family member before age 55 Mother Family history of coronary artery disease Family history of heart disease in male family member before age 55 Social History Social History Social History: Lives alone, sister Felisa Jerome helps with his meds. he has 1 son. The patient used to smoke up to 2 pa
--- NOTE | 2020-10-14 14:43 | ECG_ITS ---
Measurements Intervals [place] Rate: 164 P: [place]: 0 QRS: 266 QRSD: 140 T: 42 QT: 289 QTc: 478 Interpretive Statements ATRIAL FIBRILLATION WITH RAPID VENTRICULAR RESPONSE RIGHT AXIS DEVIATION RIGHT BUNDLE BRANCH BLOCK BASELINE ARTIFACT- I ABNORMAL ECG Electronically Signed On 10-14-2020 15:05:48 SOUVENIR ASSEMBLER by Filippo Greenwood D.O.
--- NOTE | 2020-10-14 15:12 | PC.NURSE ---
Erick palomino in the xis. called pharmacy to send up drip.
--- NOTE | 2020-10-14 15:26 | PC.NURSE ---
Pt refuses Diltiazem drip, pt states he is signing out AMA. This RN pointed out to pt that his HR is 166 and the EDP recommends he is admitted to the hospital. Pt states Im signing out AMA, Im not staying, that is always where my heartrate is, I want to leave, get me papers. EDP Dr Feliciaon at bedside discussing risk of signing out AMA, EDP encouraged pt to stay in hospital. Pt declines, verbalizes understanding of risk, and states he will not stay and he is willing to sign papers to leave. Pt IV removed per request. Pt ambulated out w/ steady gait.
== END 2020-10-14 15:29 | disposition left against medical advice (07) ==
PROVIDERS: Emergency Provider Emergency Medicine; Family Provider Physician Assistant; PCP Internal Medicine
DX: I48.91 Unspecified atrial fibrillation (principal); R00.0 Tachycardia, unspecified; I13.0 Hypertensive heart and chronic kidney disease with heart failure and stage 1 through stage 4 chronic kidney disease, or unspecified chronic kidney disease; F17.210 Nicotine dependence, cigarettes, uncomplicated; N40.0 Benign prostatic hyperplasia without lower urinary tract symptoms; I50.9 Heart failure, unspecified; J44.9 Chronic obstructive pulmonary disease, unspecified; K21.9 Gastro-esophageal reflux disease without esophagitis; N18.9 Chronic kidney disease, unspecified
CPT/HCPCS: 36415; 71046; 80053; 83880; 85025; 85610; 85730; 93005; 96374; 99284

== ENCOUNTER 2021-01-25 15:22 | Observation (INO) | payer MEDICARE, MEDICAID, SELFPAY ==
[2021-01-25] VITALS (21 sets, daily range): BP systolic 123–153; BP diastolic 71–101; PULSE 80–110; RESP 16–32; O2SAT 94–100
--- NOTE | ~2021-01-25 | XR_ITS ---
EXAMINATION: XR chest 2V DATE: 01/25/2021 15:53 INDICATION: Chest pain and shortness of breath TECHNIQUE: frontal and lateral views of the chest were obtained. COMPARISON: Chest radiograph dated 10/14/2020 FINDINGS: Hyperexpansion of lungs consistent with mild emphysema but appreciated on prior CT dated 11/29/2019. Th ere are a few scattered small bilateral calcified pulmonary nodules consistent with old granulomatous disease. No other airspace opacities, pulmonary edema, pleural effusion or pneumothorax. Borderline heart size can't for AP technique. Enlargement of the central pulmonary arteries consistent with pulm onary arterial hypertension. Chronic T9 compression fracture with mild anterior wedging. A few old bi lateral rib fractures. Mild left glenohumeral osteoarthritis with a few loose osteochondral bodies. IMPRESSION: 1. Mild emphysema. No acute cardiopulmonary disease. Reviewed, dictated and finalized at location A.
--- NOTE | 2021-01-25 15:39 | ECG_ITS ---
Measurements Intervals [place] Rate: 96 P: 75 [place]: 163 QRS: -86 QRSD: 149 T: 39 QT: 375 QTc: 474 Interpretive Statements SINUS TACHYCARDIA FREQUENT ATRIAL PREMATURE COMPLEXES LEFT AXIS DEVIATION RIGHT BUNDLE BRANCH BLOCK BASELINE ARTIFACT- I, II, III, AVR, AVL, AVF, V1-V6 ABNORMAL ECG Electronically Signed On 01-25-2021 16:35:13 CDT by Filippo Greenwood D.O.
[2021-01-25 16:21] LABS: Basophils Absolute Auto 0.1 K/mm3 (0.0-0.1); Basophils Percent Auto 1.2 % (0.2-1.2); Eosinophils Absolute Auto 0.1 K/mm3 (0-0.3); Eosinophils Percent Auto 0.6 % (0-4.4); Hematocrit 51.1 % (42.0-52.0); Hemoglobin 17.3 g/dL (14.0-18.0); Immature Granulocyte Absolute 0.05 K/mm3 (0.00-0.031); Immature Granulocyte Percent A 0.4 % (0-0.5); Mean Corpuscular HGB Conc 33.9 g/dl (32-36); Mean Corpuscular Hemoglobin 32.9 pg (26-34); Mean Corpuscular Volume 97.1 fl (80-100); Mean Platelet Volume 12.1 fl (7.4-10.4); Monocytes Absolute Auto 0.6 K/mm3 (0.1-0.6); Monocytes Percent Auto 5.4 % (2.6-8.5); Neutrophils Absolute Auto 7.5 K/mm3 (1.3-6.7); Neutrophils Percent Auto 67.4 % (45.5-73.1); Platelet Count Result 185 k/mm3 (150-375); Red Blood Count 5.26 M/mm3 (4.6-6.20); Red Cell Distribution Width 14.6 % (11.5-14.5); White Blood Count 11.2 K/mm3 (4.5-10.0)
[2021-01-25 16:30] LABS: INR 1.3; Prothrombin Time 16.4 Seconds (11.1-14.7)
[2021-01-25 16:31] LABS: Partial Thromboplastin Time 32.3 SECONDS (22.3-36.8)
--- NOTE | 2021-01-25 16:36 | PC.NURSE ---
Repeat labs sent, blue and green, apparently green top is hemolyzed per Gabby in the lab. Reportedly need another green top.
[2021-01-25 16:46] LABS: NT Pro B Type Natriuretic Pept 3780 pg/mL (5-100)
--- NOTE | 2021-01-25 16:46 | ED.CHESTPAIN ---
HPI - Chest Pain General Chief Complaint: Chest Pain <Kike Feliciano MD - Last Filed: 01/25/21 16:52> Stated Complaint: CP/SOB <Kike Feliciano MD - Last Filed: 01/25/21 16:52> Time Seen by Provider: 01/25/21 15:34 <Kike Feliciano MD - Last Filed: 01/25/21 16:52> History of Present Illness HPI narrative: Patient is a 65-year-old male who presents ER with chest pain and shortness of breath. Patient reports he was just sitting in his chair when he suddenly felt central chest pain and dyspnea. EMS arrived and patient was found to be in A. fib with RVR. They are unable to obtain an IV. They reported the patient seemed to be in significant distress. Patient ended up receiving Versed and being cardioverted in route. Patient currently in atrial fibrillation that is rate controlled. Patient reports he continues to have central chest pain and pressure. He has chronic lung disease but reports worsening shortness of breath and cough for the last couple weeks. Subjective fevers. No known sick contacts. Patient has some dementia according to family and is oriented to self and situation but not place or date. Patient's local announcer is Dr. Flores. <Kike Feliciano MD - Last Filed: 01/25/21 16:52> Related Data Home Medications: Home Medications Medication Instructions Recorded Confirmed Eliquis 5 mg PO BID 09/20/19 02/01/20 atorvastatin 20 mg PO HS 09/20/19 02/01/20 calcium carbonate-vitamin D3 1 tablet PO DAILY 09/20/19 02/01/20 [Calcium 500 + D] cholecalciferol (vitamin D3) 5,000 unit PO DAILY 09/20/19 02/01/20 [Vitamin D3] fluticasone propionate [Allergy 2 spray INTRANASAL DAILY 09/20/19 02/01/20 Relief (fluticasone)] gabapentin 300 mg PO TID 09/20/19 02/01/20 metoprolol tartrate 25 mg PO DAILY 09/20/19 02/01/20 omeprazole 20 mg PO DAILY 09/20/19 02/01/20 sertraline 50 mg PO DAILY 09/20/19 02/01/20 tamsulosin 0.4 mg PO DAILY 09/20/19 02/01/20 Spiriva Respimat 2 puff INHALATION DAILY 10/01/19 02/01/20 folic acid 1 mg PO DAILY 10/01/19 02/01/20 cyanocobalamin (vitamin B-12) 1,000 mcg IM MONTHLY 02/01/20 02/02/20 nitroglycerin 0.4 mg SUBLINGUAL Q5MIN PRN 02/01/20 02/01/20 acetaminophen 1,000 mg PO Q6H PRN 01/25/21 01/25/21 alprazolam 01/25/21 01/25/21 cyclobenzaprine 10 mg TID PRN 01/25/21 01/25/21 digoxin 125 mcg DAILY 01/25/21 01/25/21 ferrous sulfate 325 mg DAILY 01/25/21 01/25/21 furosemide 20 mg DAILY 01/25/21 01/25/21 ipratropium bromide 2 puff INHALATION Q6H 01/25/21 01/25/21 <Kike Feliciano MD - Last Filed: 01/25/21 16:52> Allergies/Adverse Reactions: Allergies Allergy/AdvReac Type Severity Reaction Status Date / Time albuterol AdvReac Shakiness Verified 01/25/21 15:34 <Kike Feliciano MD - Last Filed: 01/25/21 16:52> Review of Systems Review of Systems: All systems reviewed & are unremarkable except as noted in HPI and below <Kike Feliciano MD - Last Filed: 01/25/21 16:52> Constitutional: Constitutional: Denies chills, Denies fever(s) and Reports weakness <Kike Feliciano MD - Last Filed: 01/25/21 16:52> ENT: Denies nasal congestion and Denies sore throat <Kike Feliciano MD - Last Filed: 01/25/21 16:52> Cardiovascular: Cardiovascular: Reports chest pain, Reports rapid heart rate and Denies radiating jaw, neck or arm pain <Kike Feliciano MD - Last Filed: 01/25/21 16:52> Respiratory: Respiratory: Reports chest congestion, Reports cough, Reports dyspnea and Reports wheezing <Kike Feliciano MD - Last Filed: 01/25/21 16:52> Gastrointestinal: Gastrointestinal: Denies abdominal pain, Denies nausea and Denies vomiting <Kike Feliciano MD - Last Filed: 01/25/21 16:52> REPLACED BY [facility] Past Medical History Medical History: Medical History (Updated 01/25/21 @ 17:57 by Seema Ignacio MD) A-fib Attempted cardioversion x2 without success Anemia Anxiety Aortic stenosis Atrial flutter Back pain BPH (benign prostatic hyperplasia)
[2021-01-25 17:16] LABS: Anion Gap 11 mmol/L (8-16); Blood Urea Nitrogen 20 mg/dL (9-20); Calcium 9.6 mg/dL (8.4-10.2); Carbon Dioxide 19 mmol/L (22-30); Chloride 110 mmol/L (98-107); Estimated CRCL calculation 38 ml/min; Estimated Glomerular Filt Rate 41; Glucose 82 mg/dL (75-110); Potassium 3.6 mmol/L (3.4-5.0); Sodium 140 mmol/L (137-145)
[2021-01-25 17:30] LABS: Troponin I 0.058 ng/mL (0.000-0.034)
[2021-01-25] MEDS: NITROGLYCERIN OINTMENT 1 INCH DOSE (18:13)
[2021-01-25] MEDS: MORPHINE SULFATE (*CRX) 2 MG/ML INJ ×2 (18:13→18:40)
--- NOTE | 2021-01-25 18:14 | PC.NURSE ---
Pt given meds IV and topical for continued chest pain. Pt's dinner tray given. Pt states will attempt to eat it. Made aware of pending bed assignment.
--- NOTE | 2021-01-25 18:41 | PC.NURSE ---
Pt not eating much of dinner tray, states for the past few days has not has much of an appetite. Pt given additional pain meds IVP for chest pain that remains 05/04.
--- NOTE | 2021-01-25 19:10 | PC.NURSE ---
Pain remains 5/10 at present. SBAR faxed to IMU. Report to ZANE Bass, and ZANE Vigil, to continue care.
--- NOTE | 2021-01-25 19:47 | ADMGEN ---
This patient, Guero Ahmadi, was admitted to IMU Room 231-01. Patient/family oriented to hospital policies and general routines including ID bracelet, bed and alarms, visiting hours, pain management, procedures, bathroom and other care routines, personal items, smoking policy, room service/diet, and visiting hours. Information on how to activate the Rapid Response Team has been discussed. Patient/Family are encouraged to report perceived risks to care and to ask questions if they do not understand what they are told or what they should do.
[2021-01-25 20:54] LABS: Troponin I 0.066 ng/mL (0.000-0.034)
--- NOTE | 2021-01-25 21:21 | PM.IMHP ---
H&P: HPI History of Present Illness Date/Time: 01/25/21 22:00 Chief Complaint: Chest pain Narrative: Source of information: Past medical records and patient report. The patient is only a fair historian at best. 65-year-old male with a past medical history of paroxysmal atrial fibrillation, COPD with chronic tobacco use, early/mild cognitive impairment, hypertension, and BPH who presented to the ER via EMS from home due to worsening chest pain and shortness of breath. Patient has COPD and continues to smoke. He reports that his shortness of breath has been worsening for the last couple of weeks and is associated with a cough for what he reported to the EMS. However the patient reported to me that he has been more short of breath but denied increasing cough. He also told me that he had only been more short of breath for the last 3 days. He also reported subjective fever to the ER staff but denied fevers at the time of my evaluation. He has not had any known ill contacts and has not had COVID vaccine. He reported central chest pain but is unable to give me a quality of the chest pain. The pain has been going on for reportedly 3 days but worsened today. He checked his blood pressure prior to his sister arriving at his home and his blood pressure was elevated and so was his heart rate. His sister called EMS at which time he was found to be in AFib RVR with heart rate is high as the 200s. He was given intranasal Versed and cardioverted in route to the hospital. The patient is complaining of severe burning pain to the areas where the defibrillator pads were placed for cardioversion. He does report some sensation of incomplete bladder emptying but this sensation has improved after he was started on Flomax last March. He does still have some hesitancy starting his urine stream. He denies any dysuria. The patient insists that his cardiac symptoms and recurrent AFib are due to the fact that his primary care doctor soft giving him Xanax. The patient had a prescription for Xanax number 45 tablets filled on 12/23/2020. He states that he has been out of Xanax for about 2 weeks. Review of Systems Review of Systems: Narrative: 12 systems were reviewed with pertinent positives and negatives per HPI. Except as documented in the HPI, all other systems were reviewed and are negative. [facility] Past Medical History Medical History (Updated 05/04/21 @ 01:29 by Irma Kidd DO) Anemia Anxiety Aortic stenosis mild Atrial flutter Back pain BPH (benign prostatic hyperplasia) Bronchitis Cataracts, bilateral Chest pain, musculoskeletal CHF (congestive heart failure) Echo 09/2018: EF of 50% and impaired diastolic relaxation grade 1 Chronic kidney disease COPD (chronic obstructive pulmonary disease) CVA (cerebral vascular accident) Right side effects Dementia Depression DVT (deep venous thrombosis) Emphysema of lung Epistaxis GERD (gastroesophageal reflux disease) Heart attack Pt reports old [place] but I could ot find any documentation in [facility], Care Everywhere, etc. Cardiac cath 2017 showed normal coronary arteries. Hepatitis C History of rectal polyps HLD (hyperlipidemia) HTN (hypertension) Kidney stones Osteoporosis Paroxysmal atrial fibrillation cardioversion x 2 Tuberculosis Surgical History Surgical History History of appendectomy Hx of cardiac catheterization x2 Hx of spinal surgery Family History Family History (Updated 01/25/21 @ 21:41 by Irma Kidd DO) Father Heart disease Mother Diabetes mellitus Hypertension Heart disease Social History Social History (Updated 01/26/21 @ 01:32 by Irma Kidd DO) Social History: Lives alone, sister Felisa Jerome helps with his meds. he has 1 son. The patient used to smoke up to 2 packs of cigarettes a day and cut down to 1. He uses marijuana often. He retired from [employer]. Smoking packs p
[2021-01-25] MEDS: ATORVASTATIN 20 MG TABLET PO (21:54)
[2021-01-25] MEDS: ALPRAZolam (*CRX) 0.5 MG TABLET 1 MG PO (21:54)
[2021-01-25] MEDS: HYDROcodone/acetaminophen (*CRX) 5-325 MG TABLET 1 TAB PO (21:55)
[2021-01-25] MEDS: GABAPENTIN 300 MG CAPSULE PO (21:55)
[2021-01-25] MEDS: APIXABAN 5 MG TABLET PO (21:55)
[2021-01-25] MEDS: LIDOCAINE/PRILOCAINE CREAM 2.5-2.5% TUBE 1 EACH TOPICAL (23:09)
[2021-01-25] MEDS: NICOTINE (*PBKC) 4 MG GUM PO (23:09)
[2021-01-25 23:52] LABS: Troponin I 0.073 ng/mL (0.000-0.034)
[2021-01-26] VITALS (10 sets, daily range): BP systolic 89–143; BP diastolic 49–76; PULSE 59–84; RESP 16–20; TEMP 36.1–36.2; O2SAT 92–100
--- NOTE | 2021-01-26 08:25 | PM.CNCAR ---
Assessment and Plan Assessment and plan (1) Atrial fibrillation with rapid ventricular response: Code(s): I48.91 - Unspecified atrial fibrillation Status: Acute Assessment and Plan: 65-year-old male with persistent atrial fib/flutter on chronic anticoagulation with apixaban, mild , chronic musculoskeletal chest pain (history of rib fractures), cervical radiculopathy followed by pain management, COPD, ongoing tobacco abuse. Patient presented with palpitations, shortness of breath and chest discomfort; found to be in atrial fibrillation RVR, cardioverted by EMS EN route for what was described as severely elevated heart rate. He has been in sinus rhythm with PACs on telemetry. His symptoms have resolved. Change metoprolol tartrate to metoprolol succinate 25 mg p.o. daily; continue diltiazem CD. Continue anticoagulation with apixaban 5 mg p.o. b.i.d.. Patient will follow-up with Dr. Flores for long-term cardiac care. (2) Chest pain: Qualifiers: Chest pain type: unspecified Qualified Code(s): R07.9 - Chest pain, unspecified Code(s): R07.9 - Chest pain, unspecified Status: Acute Assessment and Plan: Patient has history of musculoskeletal chest pain. During his admission, the chest pain happened in the setting of AFib with RVR which is resolved now that patient is in sinus rhythm. (3) Elevated troponin: Code(s): R77.8 - Other specified abnormalities of plasma proteins Status: Acute Assessment and Plan: Minimal troponin elevation, essentially flat in the setting of AFib with RVR. No ischemic symptoms at present. Need for ischemic evaluation to be determined as an outpatient. (4) COPD (chronic obstructive pulmonary disease): Qualifiers: COPD type: unspecified COPD Qualified Code(s): J44.9 - Chronic obstructive pulmonary disease, unspecified Code(s): J44.9 - Chronic obstructive pulmonary disease, unspecified Status: Chronic Assessment and Plan: Management as per primary team. Smoking cessation counseling was done. (5) Aortic stenosis: Qualifiers: Cardiac valve disease etiology: etiology unspecified Qualified Code(s): I35.0 - Nonrheumatic aortic (valve) stenosis Code(s): I35.0 - Nonrheumatic aortic (valve) stenosis Status: Chronic Assessment and Plan: Echocardiogram from 01/28/2019 showed mild . Outpatient periodic surveillance echocardiograms. (6) Tobacco abuse: Code(s): Z72.0 - Tobacco use Status: Acute Assessment and Plan: Smoking cessation counseling was done. History of Present Illness History of Present Illness Consult date/time: 01/26/21 08:25 Date of consult: 01/26/2021 Reason for consult: AFib, chest pain Requesting physician:MD Mateus Chief complaint: Palpitations, shortness of breath HPI: 65-year-old male with persistent atrial fib/flutter on chronic anticoagulation with apixaban, mild , chronic musculoskeletal chest pain (history of rib fractures), cervical radiculopathy followed by pain management, COPD, ongoing tobacco abuse. Patient presented to [facility] ER via EMS on 01/25/2021 with complaints of palpitations, worsening shortness of breath and chest pain for 2 days. At baseline, patient states that he can walk up to 1 mile. For last couple of days, he said he had palpitations/rapid heart rate associated with shortness of breath and chest discomfort in the substernal and right side of the chest. EMS was called and patient was apparently found to be in atrial fibrillation with RVR, and was cardioverted EN route due to severely elevated heart rates. In the ER, his heart rate was in 90s to 100s. EKG at presentation on my personal evaluation showed sinus tachycardia with frequent PACs. Troponins are minimally elevated with peak troponin level of 0.073. NTproBNP is elevated at 3780. Chest x-ray shows emphysema. On telemetry, patient is in sinus rhythm with freq
[2021-01-26] MEDS: GABAPENTIN 300 MG CAPSULE PO (09:31)
[2021-01-26] MEDS: FOLIC ACID 1 MG TABLET PO (09:31)
[2021-01-26] MEDS: TAMSULOSIN HCL 0.4 MG CAPSULE PO (09:32)
[2021-01-26] MEDS: CHOLECALCIFEROL 1,000 UNITS TABLET 5000 UNITS PO (09:32)
[2021-01-26] MEDS: PANTOPRAZOLE 40 MG TABLET PO (09:34)
[2021-01-26] MEDS: APIXABAN 5 MG TABLET PO (09:35)
[2021-01-26] MEDS: FUROSEMIDE 20 MG TABLET PO (09:35)
[2021-01-26] MEDS: SERTRALINE HCL 50 MG TABLET PO (09:35)
[2021-01-26] MEDS: FLUTICASONE PROPIONATE 0.05% NA SPR 16 GM BTL (*BKC) 2 SPRAY NASAL (09:36)
[2021-01-26] MEDS: ALPRAZolam (*CRX) 0.5 MG TABLET 1 MG PO (09:43)
[2021-01-26] MEDS: METOPROLOL SUCCINATE EXT REL 25 MG TABCR PO (10:11)
--- NOTE | 2021-01-26 10:35 | PM.DS ---
DS: Admitting Diagnosis Admitting Diagnosis Admitting Diagnosis: Chief Complaint: Chest pain DS: Discharge Diagnosis Discharge Diagnosis (1) Atrial fibrillation: Qualifiers: Atrial fibrillation type: unspecified Qualified Code(s): I48.91 - Unspecified atrial fibrillation Code(s): I48.91 - Unspecified atrial fibrillation Status: Acute (2) Chest pain: Qualifiers: Chest pain type: unspecified Qualified Code(s): R07.9 - Chest pain, unspecified Code(s): R07.9 - Chest pain, unspecified Status: Acute DS: Summary Hospital Course Reason for hospitalization: Chief Complaint: Chest pain Narrative: Source of information: Past medical records and patient report. The patient is only a fair historian at best. 65-year-old male with a past medical history of paroxysmal atrial fibrillation, COPD with chronic tobacco use, early/mild cognitive impairment, hypertension, and BPH who presented to the ER via EMS from home due to worsening chest pain and shortness of breath. Patient has COPD and continues to smoke. He reports that his shortness of breath has been worsening for the last couple of weeks and is associated with a cough for what he reported to the EMS. However the patient reported to me that he has been more short of breath but denied increasing cough. He also told me that he had only been more short of breath for the last 3 days. He also reported subjective fever to the ER staff but denied fevers at the time of my evaluation. He has not had any known ill contacts and has not had COVID vaccine. He reported central chest pain but is unable to give me a quality of the chest pain. The pain has been going on for reportedly 3 days but worsened today. He checked his blood pressure prior to his sister arriving at his home and his blood pressure was elevated and so was his heart rate. His sister called EMS at which time he was found to be in AFib RVR with heart rate is high as the 200s. He was given intranasal Versed and cardioverted in route to the hospital. The patient is complaining of severe burning pain to the areas where the defibrillator pads were placed for cardioversion. He does report some sensation of incomplete bladder emptying but this sensation has improved after he was started on Flomax last March. He does still have some hesitancy starting his urine stream. He denies any dysuria. The patient insists that his cardiac symptoms and recurrent AFib are due to the fact that his primary care doctor soft giving him Xanax. The patient had a prescription for Xanax number 45 tablets filled on 12/23/2020. He states that he has been out of Xanax for about 2 weeks. Hospital Course: During ride to emergency depart EMS cardioverted the patient as he appeared unstable at that time with heart rate of over 200, patient is seen by Cardiology and remains in sinus rhythm rate control, demand planner switched his metoprolol tartrate to metoprolol succinate 25 mg q.d., patient will continue diltiazem, new Eliquis, follow-up his Cardiology, patient also has a history of anxiety most likely triggers his A. fib, will start the patient BuSpar and will continue his Xanax and follow-up with his primary care. Status at Discharge Functional status at discharge: independent ambulation Overall status at discharge: patient is back to baseline Time Spent with Patient Time attestation: Total time spent providing and/or coordinating discharge services: Patient was seen and examined at the time of the discharge Condition at discharge is stable Code status: Full code. Time spent preparing discharge summary, discharge medications, discussing discharge planning with classification case manager and patient is 30 minutes. Time spent: Less than 30 minutes Exam Narrative: Exam Narrative: Patient is comfortable, NAD HEENT: eyes are clear and none icteric LUNGS:CTA HEART: RR S1S2 ABD: BS+, Soft and nontender Lower extremities: no edema SKIN: n
--- NOTE | 2021-01-26 11:31 | PC.NURSE ---
1125- discharged home via w/c accompanied by staff to vehicle driven by family member
== END 2021-01-26 11:25 | disposition home or self-care (01) ==
LOC: ANHED 17:57 → ANHIMU 21:34
PROVIDERS: Admitting Provider Internal Medicine; Emergency Provider Emergency Medicine; PCP Internal Medicine; Visit Provider Family Medicine
DX: R07.9 Chest pain, unspecified (principal); I35.0 Nonrheumatic aortic (valve) stenosis; I48.91 Unspecified atrial fibrillation; I50.9 Heart failure, unspecified; I11.0 Hypertensive heart disease with heart failure; J44.9 Chronic obstructive pulmonary disease, unspecified; N40.0 Benign prostatic hyperplasia without lower urinary tract symptoms; R06.02 Shortness of breath; F17.210 Nicotine dependence, cigarettes, uncomplicated; R77.8 Other specified abnormalities of plasma proteins
CPT/HCPCS: 36415; 71046; 80048; 83880; 84484; 85025; 85610; 85730; 93005; 94640; 96374; 99285; A9270; G0378; J2270

== ENCOUNTER → 2021-11-19 13:54 | Outpatient (CLI) | payer MEDICARE, SELFPAY ==
--- NOTE | ~2021-11-19 | XR_ITS ---
EXAMINATION:XR cervical spine 4-5V DATE: 11/19/2021 14:33 INDICATION: Neck pain TECHNIQUE: AP, lateral, lateral swimmers and odontoid views of the cervical spine are provided. COMPARISON: 08/15/2017 FINDINGS: Alignment is normal. The odontoid is intact. No fracture is identified. There are changes o f anterior fusion from C3 through C5. An interbody device is present at C5-6. There is severe loss of intervertebral disc space height at C6-7. Prevertebral soft tissues are normal. IMPRESSION: 1. Changes of anterior fusion and moderate cervical spondylosis without acute findings or significant interval change. Reviewed, dictated and finalized at location F. OR RECEPTIONIST IMPRESSION: 1. Changes of anterior fusion and moderate cervical spondylosis without acute f indings or significant interval change.
--- NOTE | ~2021-11-19 | CT_ITS ---
EXAMINATION: CT lung screening DATE: 11/19/2021 14:33 INDICATION: Personal history of tobacco dependence. Lung cancer screening. TECHNIQUE: Computed tomography (CT) of the chest was performed without intravenous contrast. The dose -length product was 77.84 mGy-cm. Automated exposure control and iterative reconstruction technique w ere employed. COMPARISON: CT dated 11/29/2019 FINDINGS: Cardiomegaly. There is atherosclerosis of the aorta and coronary arteries. No thoracic lymp hadenopathy. No significant pleural or pericardial effusions. There are burst fractures of L1 and L2 with vertebroplasty changes at L2. No endobronchial lesions. There are scattered calcified granulomas of the lung parenchyma. There is emphysema. There are patchy groundglass opacities in both lungs latesha valerie involving the lower lobes, suspicious for respiratory bronchiolitis or sequela of infectious/i nflammatory process. There are a few small nodules in the both lungs, measuring 3 mm or less, likely benign. IMPRESSION: 1. Lung-RADS category 2: Benign appearance or behavior. Continue annual screening with noncontrast lo w-dose chest CT in 12 months. 2: Patchy groundglass opacities in both lungs primarily involving the lower lobes, suspicious for res piratory bronchiolitis or sequela of infectious/inflammatory process. Reviewed, dictated and finalized at location B. OPERATOR IMPRESSION: 1. Lung-RADS category 2: Benign appearance or behavior. Continue annual screeni ng with noncontrast low-dose chest CT in 12 months. 2: Patchy groundglass opacities in both lungs primarily involving the lower lob es, suspicious for respiratory bronchiolitis or sequela of infectious/inflammat ory process.
== END ==
PROVIDERS: PCP Internal Medicine
DX: Z12.2 Encounter for screening for malignant neoplasm of respiratory organs (principal); Z87.891 Personal history of nicotine dependence; Z98.1 Arthrodesis status; M47.892 Other spondylosis, cervical region; R91.8 Other nonspecific abnormal finding of lung field
CPT/HCPCS: 71271; 72050

== ENCOUNTER 2021-12-19 04:48 | Observation (INO) | payer MEDICARE, MEDICAID, SELFPAY ==
[2021-12-19] VITALS (14 sets, daily range): BP systolic 114–137; BP diastolic 56–76; PULSE 60–99; RESP 13–20; TEMP 35.6–36.4; O2SAT 93–100; BMI 20.9
--- NOTE | ~2021-12-19 | XR_ITS ---
EXAMINATION: XR chest 2V DATE: 12/19/2021 05:27 INDICATION: Shortness of breath TECHNIQUE: frontal view of the chest was obtained. COMPARISON: Chest radiograph dated 01/25/[address] dated 11/19/2021 FINDINGS: Patient is rotated slightly towards the right. There are few scattered bilateral small calcified pulm onary nodules consistent with old granulomatous disease. No pulmonary edema, pleural effusion or pneu mothorax. Cardiomegaly. Old bilateral rib fractures. A couple loose osteochondral bodies at the left glenohumeral joint. IMPRESSION: 1. Cardiomegaly. No acute cardiopulmonary disease. Reviewed, dictated and finalized at location A.
--- NOTE | 2021-12-19 04:58 | ECG_ITS ---
Measurements Intervals [place] Rate: 74 P: [place]: 0 QRS: -88 QRSD: 164 T: 49 QT: 403 QTc: 448 Interpretive Statements ATRIAL FIBRILLATION RIGHT BUNDLE BRANCH BLOCK [120+ ms QRS DURATION, UPRIGHT V1, 40+ ms S IN I/aVL/V4/V5/V6] LEFT ANTERIOR FASCICULAR BLOCK [QRS AXIS <= -45, QR IN I, RS IN II] ABNORMAL ECG COMPARED TO ECG 01/25/2021 15:30:06 ATRIAL FIBRILLATION NOW PRESENT Electronically Signed On 12-19-2021 8:35:45 CDT by Andrew Pardo M.D.
[2021-12-19 05:11] LABS: Alveolar/Arterial O2 Gradient 50.3 mmHg; Base Excess ABG 0.1 mEq/l (+/-2.0); Carboxyhemoglobin 6.1 % THb (0-2.0); Fractional Inspired Oxygen 21 %; HCO3 ABG 25.1 mEq/l (22.0-26.0); Methemoglobin ABG 0.1 %THb (0-1.5); Oxygen Content ABG 16.2 %vol (16.0-22.0); PCO2 ABG 42.4 mmHg (35.0-45.0); PO2 FiO2 Ratio Arterial Blood 2.32 %; Reduced Hemoglobin 11.7 %THb (0-5.0); Total Hemoglobin 14.1 g/dL (12.0-18.0); pH ABG 7.391 (7.350-7.450)
[2021-12-19 05:17] LABS: Modified Allen's Test Pass; Oxyhemoglobin 82.1 % THb (90.0-100.0); PO2 ABG 48.7 mmHg (80.0-100.0); Site Drawn LEFT RADIAL
[2021-12-19 05:18] LABS: Device ROOM AIR
[2021-12-19 05:19] LABS: Basophils Absolute Auto 0.1 K/mm3 (0.0-0.1); Basophils Percent Auto 0.8 % (0.2-1.2); Eosinophils Absolute Auto 0.2 K/mm3 (0-0.3); Eosinophils Percent Auto 1.8 % (0-4.4); Hematocrit 40.6 % (42.0-52.0); Hemoglobin 13.5 g/dL (14.0-18.0); Immature Granulocyte Absolute 0.03 K/mm3 (0.00-0.031); Immature Granulocyte Percent A 0.3 % (0-0.5); Immature Platelet Fraction Pct 5.7 % (0.9-11.2); Lymphocytes Absolute Auto 1.42 K/mm3 (0.9-3.2); Lymphocytes Percent Auto 14.3 % (18.3-44.2); Mean Corpuscular HGB Conc 33.3 g/dl (32-36); Mean Corpuscular Hemoglobin 33.7 pg (26-34); Mean Corpuscular Volume 101.2 fl (80-100); Mean Platelet Volume 10.5 fl (7.4-10.4); Monocytes Absolute Auto 0.5 K/mm3 (0.1-0.6); Monocytes Percent Auto 4.8 % (2.6-8.5); Neutrophils Absolute Auto 7.8 K/mm3 (1.3-6.7); Platelet Count Result 138 k/mm3 (150-375); Red Blood Count 4.01 M/mm3 (4.6-6.20); Red Cell Distribution Width 13.8 % (11.5-14.5); White Blood Count 9.9 K/mm3 (4.5-10.0)
--- NOTE | 2021-12-19 05:27 | ED.SOB ---
HPI - SOB/Dyspnea General Chief Complaint: Shortness of Breath/Dyspnea Stated Complaint: sob x 1 hour; cough since yesterday Time Seen by Provider: 12/19/21 04:50 History of Present Illness HPI Narrative: Patient is a six 6-year-old male who presents ER with shortness of breath and cough. Cough began yesterday. Woke up tonight and felt exceptionally short of breath. Found to be hypoxic by EMS. Given nebulizer treatment and Decadron in route. Patient has no chest pain or chest pressure. No runny nose or sore throat. Denies fevers or chills or sweats. No hemoptysis. No lower extremity swelling. Patient has home oxygen that he is not supposed to wear all the time. He was not wearing it tonight. Related Data Home Medications Medication Instructions Recorded Confirmed Eliquis 5 mg PO BID 09/20/19 01/25/21 atorvastatin 20 mg PO HS 09/20/19 01/25/21 calcium carbonate-vitamin D3 1 tablet PO DAILY 09/20/19 01/25/21 [Calcium 500 + D] cholecalciferol (vitamin D3) 5,000 unit PO DAILY 09/20/19 01/25/21 [Vitamin D3] fluticasone propionate [Allergy 2 spray INTRANASAL DAILY 09/20/19 01/25/21 Relief (fluticasone)] gabapentin 300 mg PO TID 09/20/19 01/25/21 omeprazole 20 mg PO DAILY 09/20/19 01/25/21 sertraline 50 mg PO DAILY 09/20/19 01/25/21 tamsulosin 0.4 mg PO DAILY 09/20/19 01/25/21 Spiriva Respimat 2 puff INHALATION DAILY 10/01/19 01/25/21 folic acid 1 mg PO DAILY 10/01/19 01/25/21 cyanocobalamin (vitamin B-12) 1,000 mcg IM MONTHLY 02/01/20 01/25/21 nitroglycerin 0.4 mg SUBLINGUAL Q5MIN PRN 02/01/20 01/25/21 acetaminophen 1,000 mg PO Q6H PRN 01/25/21 01/25/21 alprazolam 1 mg PO BID PRN 01/25/21 01/25/21 cyclobenzaprine 10 mg PO TID PRN 01/25/21 01/25/21 digoxin 125 mcg PO DAILY 01/25/21 01/25/21 diltiazem HCl 120 mg PO HS 01/25/21 01/25/21 diltiazem HCl [Cardizem CD] 240 mg PO QAM 01/25/21 01/25/21 ferrous sulfate 325 mg PO DAILY 01/25/21 01/25/21 furosemide 20 mg PO DAILY 01/25/21 01/25/21 ipratropium bromide 2 puff INHALATION Q6H 01/25/21 01/25/21 Allergies Allergy/AdvReac Type Severity Reaction Status Date / Time albuterol AdvReac Shakiness Verified 01/25/21 15:34 Review of Systems Review of Systems: All systems reviewed & are unremarkable except as noted in HPI and below Constitutional: Constitutional: Denies chills, Reports fatigue and Denies fever(s) ENT: Denies nasal congestion and Denies sore throat Cardiovascular: Cardiovascular: Denies chest pain, Denies rapid heart rate and Denies radiating jaw, neck or arm pain Respiratory: Respiratory: Reports cough, Reports dyspnea and Denies wheezing Gastrointestinal: Gastrointestinal: Denies abdominal pain, Denies nausea and Denies vomiting Musculoskeletal: Musculoskeletal: Denies back pain and Denies muscle cramps Neurologic: Denies headache(s), Denies focal weakness and Denies numbness PMFSH Past Medical History Medical History Anemia Anxiety Aortic stenosis mild Atrial flutter Back pain BPH (benign prostatic hyperplasia) Bronchitis Cataracts, bilateral Chest pain, musculoskeletal CHF (congestive heart failure) Echo 09/2018: EF of 50% and impaired diastolic relaxation grade 1 Chronic kidney disease COPD (chronic obstructive pulmonary disease) CVA (cerebral vascular accident) Right side effects Dementia Depression DVT (deep venous thrombosis) Emphysema of lung Epistaxis GERD (gastroesophageal reflux disease) Heart attack Pt reports old [place] but I could ot find any documentation in [facility], Care Everywhere, etc. Cardiac cath 2016 showed normal coronary arteries. Hepatitis C History of rectal polyps HLD (hyperlipidemia) HTN (hypertension) Kidney stones Osteoporosis Paroxysmal atrial fibrillation cardioversion x 2 Tuberculosis Surgical History Surgical History History of appendectomy Hx of cardiac catheterization x2 Hx of spinal surgery F
[2021-12-19 05:28] LABS: Alanine Aminotransferase 12 U/L (4-50); Albumin Level 4.3 g/dL (3.5-5.1); Alkaline Phosphatase 87 U/L (38-126); Anion Gap 6 mmol/L (8-16); Aspartate Amino Transferase 21 U/L (17-59); Bilirubin,Total 1.1 mg/dL (0.2-1.3); Blood Urea Nitrogen 21 mg/dL (9-20); Calcium 8.5 mg/dL (8.4-10.2); Carbon Dioxide 25 mmol/L (22-30); Chloride 101 mmol/L (98-107); Estimated CRCL calculation 34 ml/min; Estimated Glomerular Filt Rate 40; Glucose 124 mg/dL (65-110); Sodium 132 mmol/L (137-145)
--- NOTE | 2021-12-19 05:34 | PC.NURSE ---
Pt found 88% on room air upon return from radiology. Placed on 2 L NC
[2021-12-19] MEDS: HYDROcodone/acetaminophen (*CRX) 5-325 MG TABLET 1 TAB PO ×3 (05:35→20:58)
[2021-12-19 05:37] LABS: INR 1.2; Partial Thromboplastin Time 30.9 SECONDS (22.3-36.8); Prothrombin Time 14.3 Seconds (11.1-14.7)
[2021-12-19] MEDS: methylPREDNISolone SOD SUCC 125 MG VIAL 60 MG IV PUSH ×3 (07:11→22:09)
[2021-12-19] MEDS: ALBUTEROL SULFATE NEB 2.5 MG/0.5 ML INH 5 MG INHALATION ×3 (08:40→20:37)
[2021-12-19] MEDS: IPRATROPIUM BR 0.02% INH SOLN 0.5 MG/2.5 ML VIAL INHALATION ×3 (08:40→20:37)
--- NOTE | 2021-12-19 08:48 | ADMGEN ---
This patient, Guero Ahmadi, was admitted to [address] [place] [address] Room 330-01 at 0830. Patient/family oriented to hospital policies and general routines including ID bracelet, bed and alarms, visiting hours, pain management, procedures, bathroom and other care routines, personal items, smoking policy, room service/diet, and visiting hours. Information on how to activate the Rapid Response Team has been discussed. Patient/Family are encouraged to report perceived risks to care and to ask questions if they do not understand what they are told or what they should do.
--- NOTE | 2021-12-19 09:23 | PC.NURSE ---
this rn called crisis regarding patient change of status to involuntary to voluntary. chemical worker also notified of pt eloping, PD being called, and behavior since pt made voluntary. this pt and dr. basurto are both requesting crisis come back out to evaluate pt. chemical worker refused to come back out and see pt. chemical worker states we dont' just come back out because a pt wants us to . chemical worker states she would talk to him on phone. chemical worker reminded pt is major elopement risk and it took 5 PD, multiple ED staff, and 2 security guards to get pt into room. chemical worker stating that his status has not in fact changed because he is still suicidal . chemical worker reminded that pt was now involuntary, but chemical worker still stating they would not be out to reevaluate.
--- NOTE | 2021-12-19 15:45 | PM.IMHP ---
H&P: HPI History of Present Illness Date/Time: 12/19/21 15:45 Chief Complaint: SOB and cough Narrative: Pt admitted with Cough and Sob getting worse over past 2 days. Pt has nebulizers at home but they did not help. Pt is a smoker of a pack a day. Pt feels better since coming to hospital. PMH of paroxysmal atrial fibrillation, COPD with chronic tobacco use, early/mild cognitive impairment, hypertension, and BPH. cxr shows cardiomegaly Review of Systems Review of Systems: All systems reviewed & are unremarkable except as noted in HPI and below [facility] Past Medical History Medical History Anemia Anxiety Aortic stenosis mild Atrial flutter Back pain BPH (benign prostatic hyperplasia) Bronchitis Cataracts, bilateral Chest pain, musculoskeletal CHF (congestive heart failure) Echo 09/2018: EF of 50% and impaired diastolic relaxation grade 1 Chronic kidney disease COPD (chronic obstructive pulmonary disease) CVA (cerebral vascular accident) Right side effects Dementia Depression DVT (deep venous thrombosis) Emphysema of lung Epistaxis GERD (gastroesophageal reflux disease) Heart attack Pt reports old [place] but I could ot find any documentation in [facility], Care Everywhere, etc. Cardiac cath 2017 showed normal coronary arteries. Hepatitis C History of rectal polyps HLD (hyperlipidemia) HTN (hypertension) Kidney stones Osteoporosis Paroxysmal atrial fibrillation cardioversion x 2 Tuberculosis Surgical History Surgical History History of appendectomy Hx of cardiac catheterization x2 Hx of spinal surgery Family History Family History Father Heart disease Mother Diabetes mellitus Heart disease Hypertension Grandparent Hypertension Social History Social History Social History: Lives alone, sister Felisa Jerome helps with his meds. he has 1 son. The patient used to smoke up to 2 packs of cigarettes a day and cut down to 1. He uses marijuana often. He retired from [employer]. Smoking packs per day: 1 Smoking cigarettes per day: 20.0 Years smoked: 50 Smoking pack-years: 50.00 Smoking status: Current some day smoker Tobacco type: cigarettes Second hand tobacco smoke exposure: No Alcohol intake: never Substance use: never Substance use type: does not use Last use: today Gender identity (if verbalized by the patient): Male Spiritual care concerns: No Agree to blood products: Yes Meds Home Medications and Allergies Home Medications Medication Instructions Recorded Confirmed Type Eliquis 5 mg PO BID 09/20/19 12/19/21 History atorvastatin 20 mg PO DAILY 09/20/19 12/19/21 History calcium carbonate-vitamin D3 1 tablet PO DAILY 09/20/19 12/19/21 History [Calcium 500 + D] cholecalciferol (vitamin D3) 5,000 unit PO DAILY 09/20/19 12/19/21 History [Vitamin D3] fluticasone propionate [Allergy 2 spray INTRANASAL DAILY 09/20/19 12/19/21 History Relief (fluticasone)] gabapentin 300 mg PO TID 09/20/19 12/19/21 History omeprazole 20 mg PO BID 09/20/19 12/19/21 History tamsulosin 0.4 mg PO DAILY 09/20/19 12/19/21 History Spiriva Respimat 2 puff INHALATION DAILY 10/01/19 12/19/21 History folic acid 1 mg PO DAILY 10/01/19 12/19/21 History cyanocobalamin (vitamin B-12) 1,000 mcg IM MONTHLY 02/01/20 01/25/21 History nitroglycerin 0.4 mg SUBLINGUAL Q5MIN PRN 02/01/20 12/19/21 History acetaminophen 1,000 mg PO Q6H PRN 01/25/21 12/19/21 History digoxin 125 mcg PO DAILY 01/25/21 12/19/21 History diltiazem HCl 120 mg PO HS 01/25/21 12/19/21 History diltiazem HCl [Cardizem CD] 240 mg PO QAM 01/25/21 12/19/21 History ferrous sulfate 325 mg PO QMWF 01/25/21 12/19/21 History furosemide 20 mg PO DAILY 01/25/21 12/19/21 History ipratropium bromide 2 pu
[2021-12-19] MEDS: GABAPENTIN 300 MG CAPSULE PO (17:35)
[2021-12-19] MEDS: busPIRone HCL 5 MG TABLET PO (17:35)
[2021-12-19] MEDS: PANTOPRAZOLE 40 MG TABLET PO (17:35)
[2021-12-19] MEDS: APIXABAN 5 MG TABLET PO (20:56)
[2021-12-19] MEDS: MORPHINE SULFATE (*CRX) 4 MG/ML INJ IV PUSH (22:08)
[2021-12-20] VITALS (12 sets, daily range): BP systolic 95–108; BP diastolic 60–80; PULSE 72–85; RESP 18; TEMP 36.2–36.5; O2SAT 95–96
[2021-12-20] MEDS: IPRATROPIUM BR 0.02% INH SOLN 0.5 MG/2.5 ML VIAL INHALATION ×3 (02:56→13:27)
[2021-12-20] MEDS: ALBUTEROL SULFATE NEB 2.5 MG/0.5 ML INH 5 MG INHALATION ×3 (02:56→13:27)
[2021-12-20] MEDS: methylPREDNISolone SOD SUCC 125 MG VIAL 60 MG IV PUSH ×2 (05:57→15:05)
[2021-12-20] MEDS: MORPHINE SULFATE (*CRX) 4 MG/ML INJ IV PUSH (06:40)
[2021-12-20] MEDS: APIXABAN 5 MG TABLET PO (09:36)
[2021-12-20] MEDS: ATORVASTATIN 20 MG TABLET PO (09:36)
[2021-12-20] MEDS: ASCORBIC ACID 500 MG TABLET PO (09:37)
[2021-12-20] MEDS: PANTOPRAZOLE 40 MG TABLET PO ×2 (09:37→17:16)
[2021-12-20] MEDS: DIGOXIN TAB 125 MCG TABLET PO (09:37)
[2021-12-20] MEDS: TAMSULOSIN HCL 0.4 MG CAPSULE PO (09:38)
[2021-12-20] MEDS: FUROSEMIDE 20 MG TABLET PO (09:38)
[2021-12-20] MEDS: METOPROLOL SUCCINATE EXT REL 50 MG TABCR PO (09:38)
[2021-12-20] MEDS: FOLIC ACID 1 MG TABLET PO (09:38)
[2021-12-20] MEDS: busPIRone HCL 5 MG TABLET PO ×2 (09:39→17:17)
[2021-12-20] MEDS: LORATADINE 10 MG TABLET PO (09:39)
[2021-12-20] MEDS: GABAPENTIN 300 MG CAPSULE PO ×3 (09:39→17:16)
[2021-12-20] MEDS: FERROUS SULFATE 324 MG TABLET PO (09:39)
[2021-12-20] MEDS: ESCITALOPRAM OXALATE 10 MG TABLET PO (09:39)
[2021-12-20] MEDS: CALCIUM CARBONATE (TUMS) 500 MG (200 MG ELEMENTAL) PO (12:14)
--- NOTE | 2021-12-20 14:53 | PCCCNOTE ---
On 12/20/21, the student, [Barb Interiano ], provided care and completed [facility]. I have reviewed the student's documentation and agree with the findings.
--- NOTE | 2021-12-20 16:29 | PM.DS ---
DS: Admitting Diagnosis Discharge Date 12/20/2021 Admitting Diagnosis Cough and Shortness of breath DS: Discharge Diagnosis Discharge Diagnosis (1) COPD with acute exacerbation: Code(s): J44.1 - Chronic obstructive pulmonary disease with (acute) exacerbation Status: Acute (2) Atrial fibrillation: Qualifiers: Atrial fibrillation type: unspecified Qualified Code(s): I48.91 - Unspecified atrial fibrillation Code(s): I48.91 - Unspecified atrial fibrillation Status: Acute Assessment and Plan: SOB resolved and patient is on room air with adequate oxygen saturation saying he feels much better. Afebrile, no leukocytosis and CXR with no pneumonia. Likely has viral bronchitis causing acute COPD exacerbation and patient reporting today he had been having increased amount of coughing a few days prior to presentation to the ED. Will discharge to home today. -Prednisone 40 mg po x 5 days for discharge -Ipratropium (home inhaler) continued with instruction for 2 puffs q4h while awake for 3 days after discharge. Discussed with the patient and written in the discharge instructions. (3) CHF (congestive heart failure): Qualifiers: Heart failure chronicity: chronic Heart failure type: diastolic Qualified Code(s): I50.32 - Chronic diastolic (congestive) heart failure Code(s): I50.9 - Heart failure, unspecified Status: Chronic Assessment and Plan: Continue home furosemide as prescribed. (4) Tobacco abuse: Code(s): Z72.0 - Tobacco use Status: Acute Assessment and Plan: Patient counseled about smoking cessation at admission. (5) Chronic kidney disease: Qualifiers: Chronic kidney disease stage: stage 3 (moderate) Qualified Code(s): N18.3 - Chronic kidney disease, stage 3 (moderate) Code(s): N18.9 - Chronic kidney disease, unspecified Status: Chronic Assessment and Plan: Creatinine stable during admission. DS: Summary Hospital Course Hospital Course: Patient presented to the ED due to shortness of breath and cough. Patient with history of COPD on multiple inhalers at home as well as currently smoking cigarettes daily. Patient was given steroids and nebulizer treatments. Patient symptoms resolved by the next morning and remained on room air with adequate oxygenation. Patient CXR on admission w/ no acute processes and there were no signs of acute bacterial infection. No antibiotics were given. Patient discharged to home with instructions to use ipratropium every 4 hours while awake for three days after discharge and prednisone for five days. Time Spent with Patient Time attestation: Total time spent providing and/or coordinating discharge services: I have seen and examined the patient on discharge day. More than 30 minutes was personally spent on discharge planning on the day of discharge in coordination of care, counseling the patient, and preparation of discharge and transfer paperwork. Exam Narrative: GENERAL: NAD, cooperative HEENT: Normocephalic, atraumatic, anicteric, nares clear, oropharynx moist and clear, good dentition NECK: Supple CV: Regular rate, no rubs or gallops RESP: Expiratory wheezes throughout, no rhonchi, or crackles throughout Abdomen: Soft, non-tender, non-distended, +BS EXTREMITIES: Warm and well perfused, no clubbing, cyanosis, or edema. SKIN: warm, dry and intact. NEURO:CN 2-12 grossly intact. DS: Data Data Completed and Pending Completed studies during hospitalization: CXR Discharge Plan Discharge Attending physician on discharge: Monet Castro Discharging Clinician: Monet Castro Anticipated Discharge Date/Time: 12/20/21 16:12 Patient Disposition: Home, Self-Care Activity: as tolerated Diet: heart healthy Discharge Instructions: Per Care Coordination: Please follow up with your primary care physician Kelsey Blanchard on MondayDecember 22 at 1p
[2021-12-20] MEDS: ACETAMINOPHEN 500 MG TABLET 1000 MG PO (17:18)
== END 2021-12-20 17:30 | disposition home or self-care (01) ==
LOC: ANHED 07:05 → ANH3MEDSUR 09:02
PROVIDERS: Admitting Provider Internal Medicine; Emergency Provider Emergency Medicine; PCP Physician Assistant Medical; Visit Provider Family Medicine
DX: J44.1 Chronic obstructive pulmonary disease with (acute) exacerbation (principal); I48.91 Unspecified atrial fibrillation; I13.0 Hypertensive heart and chronic kidney disease with heart failure and stage 1 through stage 4 chronic kidney disease, or unspecified chronic kidney disease; N18.30 Chronic kidney disease, stage 3 unspecified; E78.5 Hyperlipidemia, unspecified; F41.9 Anxiety disorder, unspecified; F17.210 Nicotine dependence, cigarettes, uncomplicated; I50.32 Chronic diastolic (congestive) heart failure; K21.9 Gastro-esophageal reflux disease without esophagitis; N40.0 Benign prostatic hyperplasia without lower urinary tract symptoms; Z28.21 Immunization not carried out because of patient refusal; Z86.73 Personal history of transient ischemic attack (TIA), and cerebral infarction without residual deficits; Z86.718 Personal history of other venous thrombosis and embolism; Z86.11 Personal history of tuberculosis; Z90.49 Acquired absence of other specified parts of digestive tract; Z79.01 Long term (current) use of anticoagulants
CPT/HCPCS: 36415; 36600; 71046; 80053; 82375; 82805; 83050; 85025; 85055; 85610; 85730; 93005; 94640; 96374; 96376; 99285; A9270; G0378; J2270; J2930

== ENCOUNTER 2022-04-25 12:49 | Outpatient (CLI) | payer MEDICARE, MEDICAID, SELFPAY ==
[2022-04-25 13:34] LABS: NT Pro B Type Natriuretic Pept 3650 pg/mL (5-100)
[2022-04-25 13:45] LABS: Digoxin 1.4 ng/mL (0.8-2.0)
== END 2022-04-25 12:50 | disposition home or self-care (01) ==
LOC: ANHLAB 12:52
PROVIDERS: PCP Physician Assistant Medical; Visit Provider Internal Medicine Cardiovascular Disease
DX: I48.19 Other persistent atrial fibrillation (principal); Z51.81 Encounter for therapeutic drug level monitoring; I35.0 Nonrheumatic aortic (valve) stenosis; R06.00 Dyspnea, unspecified
CPT/HCPCS: 36415; 80162; 83880

== ENCOUNTER 2022-05-06 11:32 | Emergency (ER) | payer MEDICARE, MEDICAID, SELFPAY ==
[2022-05-06] VITALS (36 sets, daily range): BP systolic 141–172; BP diastolic 71–146; PULSE 83–174; RESP 15–24; O2SAT 94–99
--- NOTE | ~2022-05-06 | XR_ITS ---
EXAMINATION: XR chest 1V portable DATE: 05/06/2022 12:34 INDICATION: Chest pain. Shortness of breath. TECHNIQUE: A single frontal view of the chest was obtained on 2 radiographs. COMPARISON: Chest 2 views 12/19/21, chest CT 11/19/2021 FINDINGS: Calcified pulmonary nodules are consistent with old granulomatous disease. No pleural effus ion or pneumothorax. Cardiomegaly is noted. There are multiple old healed bilateral rib fractures. Th ere are changes of vertebroplasty in lumbar spine. IMPRESSION: 1. Cardiomegaly. Reviewed, dictated and finalized at location A. IMPRESSION: 1. Cardiomegaly.
--- NOTE | 2022-05-06 11:38 | PC.NURSE ---
Crash cart at bedside. Defibrillation pads in place. Preparing for cardioversion per ERP verbal orders.
[2022-05-06] MEDS: SODIUM CHLORIDE 0.9% IV 1,000 ML 999 ML IV CONT (11:40)
--- NOTE | 2022-05-06 11:40 | ECG_ITS ---
Measurements Intervals [place] Rate: 84 P: [place]: 0 QRS: 269 QRSD: 158 T: 0 QT: 368 QTc: 436 Interpretive Statements SINUS RHYTHM WITH FREQUENT PREMATURE ATRIAL CONTRACTIONS BASELINE ARTIFACT RIGHT AXIS DEVIATION RIGHT BUNDLE BRANCH BLOCK ABNORMAL ECG COMPARED TO ECG 05/06/2022 11:32:37 SINUS RHYTHM WITH PREMATURE ATRIAL CONTRACTIONS HAS REPLACED ATRIAL FIBRILLATION Electronically Signed On 05-07-2022 13:16:49 CDT by Jon Maciel M.D.
--- NOTE | 2022-05-06 11:40 | ECG_ITS ---
Measurements Intervals [place] Rate: 148 P: [place]: 0 QRS: -89 QRSD: 151 T: 0 QT: 307 QTc: 482 Interpretive Statements ATRIAL FIBRILLATION WITH RAPID VENTRICULAR RESPONSE RIGHT BUNDLE BRANCH BLOCK LEFT ANTERIOR FASCICULAR BLOCK ABNORMAL ECG COMPARED TO ECG 12/19/2021 04:52:38 HEART RATE HAS INCREASED Electronically Signed On 05-07-2022 13:15:42 CDT by Jon Maciel M.D.
--- NOTE | 2022-05-06 11:42 | PC.NURSE ---
1L NS bolus initiated per VRBO @ 1142. 50 mcg Fentanyl given per VRBO @ 1143. 2mg Versed given per VRBO @ 1143. Pt cardioverted at 200J @ 1147.
[2022-05-06] MEDS: fentaNYL CITRATE INJ (*CRX) 100 MCG/2 ML VIAL 50 MCG IV PUSH (11:43)
[2022-05-06] MEDS: RAPID SEQUENCE INTUBATION KIT 1 EACH (11:43)
[2022-05-06] MEDS: MIDAZOLAM HCL (*CRX) 2 MG/2 ML VIAL IV PUSH (11:43)
--- NOTE | 2022-05-06 11:53 | ED.SOB ---
HPI - SOB/Dyspnea General Chief Complaint: Shortness of Breath/Dyspnea Stated Complaint: sob, cp, afib rvr Time Seen by Provider: 05/06/22 11:53 History of Present Illness HPI Narrative: HPI limited by acuity of presentation. This is a 66-year-old male brought in by EMS to the emergency department for dyspnea and chest pain. EMS reports patient has had shortness of breath and cough for the last several days with exposure to a family member with COVID. On arrival patient was short of breath he was found to be tachycardic in the 160s with an irregular rhythm, consistent with A. fib RVR. He was placed on O2 support with bag mask and brought to the emergency department. Here the patient complains of cough and shortness of breath and chest pain. Related Data Home Medications Medication Instructions Recorded Confirmed apixaban 5 mg tablet (Eliquis) 5 mg PO BID 09/20/19 12/19/21 atorvastatin 20 mg tablet 20 mg PO DAILY 09/20/19 12/19/21 calcium carbonate 500 mg-vitamin 1 tablet PO DAILY 09/20/19 12/19/21 D3 5 mcg (200 unit) tablet (Calcium 500 + D) cholecalciferol (vitamin D3) 125 5,000 unit PO DAILY 09/20/19 12/19/21 mcg (5,000 unit) tablet (Vitamin D3) fluticasone propionate 50 2 spray intranasal DAILY 09/20/19 12/19/21 mcg/actuation nasal spray,suspension (Allergy Relief (fluticasone)) gabapentin 300 mg capsule 300 mg PO TID 09/20/19 12/19/21 omeprazole 20 mg capsule,delayed 20 mg PO BID 09/20/19 12/19/21 release tamsulosin 0.4 mg capsule 0.4 mg PO DAILY 09/20/19 12/19/21 folic acid 1 mg tablet 1 mg PO DAILY 10/01/19 12/19/21 tiotropium bromide 2.5 2 puff inhalation DAILY 10/01/19 12/19/21 mcg/actuation mist for inhalation (Spiriva Respimat) cyanocobalamin (vitamin B-12) 1,000 mcg IM MONTHLY 02/01/20 01/25/21 1,000 mcg/mL injection solution nitroglycerin 0.4 mg sublingual 0.4 mg sublingual Q5MIN PRN Chest 02/01/20 12/19/21 tablet Pain acetaminophen 500 mg tablet 1,000 mg PO Q6H PRN Pain, Mild 01/25/21 12/19/21 digoxin 125 mcg (0.125 mg) tablet 125 mcg PO DAILY 01/25/21 12/19/21 diltiazem HCl 120 mg 120 mg PO HS 01/25/21 12/19/21 capsule,extended release 24 hr diltiazem HCl 120 mg 240 mg PO QAM 01/25/21 12/19/21 capsule,extended release 24 hr (Cardizem CD) ferrous sulfate 325 mg (65 mg 325 mg PO QMWF 01/25/21 12/19/21 iron) tablet furosemide 20 mg tablet 20 mg PO DAILY 01/25/21 12/19/21 ipratropium bromide 17 2 puff inhalation Q6H 01/25/21 12/19/21 mcg/actuation HFA aerosol inhaler ascorbate calcium (vitamin C) 500 500 mg PO QMWF 12/19/21 12/19/21 mg capsule escitalopram oxalate 10 mg tablet 10 mg PO DAILY 12/19/21 12/19/21 loratadine 10 mg tablet 10 mg PO DAILY 12/19/21 12/19/21 metoprolol succinate 25 mg 50 mg PO QAM 12/19/21 12/19/21 tablet,extended release 24 hr (Toprol XL) rivaroxaban 15 mg 05/06/22 roflumilast 250 mcg tablet 250 mcg PO DAILY 05/06/22 (Daliresp) Allergies Allergy/AdvReac Type Severity Reaction Status Date / Time albuterol AdvReac Shakiness Verified 05/06/22 11:36 Review of Systems Review of Systems: CONSTITUTIONAL: Denies fever, chills, or sweats. EYES: Denies visual changes, redness, or discharge. ENT: Denies rhinorrhea, congestion, sore throat, or otalgia. CARDIOVASCULAR: +chest pain, Denies palpitations, or edema. RESPIRATORY: Cough, dyspnea GASTROINTESTINAL: Denies abdominal pain, nausea, vomiting, or diarrhea. GENITOURINARY: Denies dysuria or hematuria. SKIN: Denies rash or itching. MUSCULOSKELETAL: Denies back pain, joint pain, or myalgia. NEUROLOGIC: Denies headache, numbness, dizziness, or weakness. PSYCHIATRIC: Denies anxiety or depression. PMFSH Past Medical History Medical History Anemia Anxiety Aortic stenosis mild Atrial flutter Back pain BPH (benign prostatic hyperplasia) Bronchitis Cataracts, bilateral Chest pain, musculoskeletal CHF (congestive heart failure)
[2022-05-06] MEDS: PROCHLORPERAZINE EDISYLATE 10 MG/2 ML VIAL IV PUSH (11:54)
[2022-05-06] MEDS: ASPIRIN 81 MG CHEWABLE TABLET 324 MG PO (11:59)
[2022-05-06 12:00] LABS: Basophils Absolute Auto 0.1 K/mm3 (0.0-0.1); Basophils Percent Auto 0.8 % (0.2-1.2); Eosinophils Percent Auto 0.2 % (0-4.4); Hematocrit 45.4 % (42.0-52.0); Hemoglobin 15.2 g/dL (14.0-18.0); Immature Granulocyte Absolute 0.01 K/mm3 (0.00-0.031); Immature Granulocyte Percent A 0.2 % (0-0.5); Immature Platelet Fraction Pct 6.5 % (0.9-11.2); Lymphocytes Absolute Auto 0.36 K/mm3 (0.9-3.2); Lymphocytes Percent Auto 5.5 % (18.3-44.2); Mean Corpuscular HGB Conc 33.5 g/dl (32-36); Mean Corpuscular Hemoglobin 33.3 pg (26-34); Mean Corpuscular Volume 99.6 fl (80-100); Mean Platelet Volume 10.9 fl (7.4-10.4); Monocytes Absolute Auto 0.5 K/mm3 (0.1-0.6); Neutrophils Absolute Auto 5.7 K/mm3 (1.3-6.7); Neutrophils Percent Auto 86.3 % (45.5-73.1); Platelet Count Result 133 k/mm3 (150-375); Red Blood Count 4.56 M/mm3 (4.6-6.20); Red Cell Distribution Width 13.3 % (11.5-14.5); White Blood Count 6.6 K/mm3 (4.5-10.0)
--- NOTE | 2022-05-06 12:01 | PC.NURSE ---
Pt reports he is starting to feel better. Pt reports improvement of his shortness of breath.
[2022-05-06 12:08] LABS: Prothrombin Time 12.9 Seconds (11.1-14.7)
[2022-05-06 12:09] LABS: Partial Thromboplastin Time 27.7 SECONDS (22.3-36.8)
[2022-05-06 12:15] LABS: Alanine Aminotransferase 16 U/L (6-50); Albumin Level 4.8 g/dL (3.5-5.1); Alkaline Phosphatase 107 U/L (38-126); Anion Gap 12 mmol/L (8-16); Aspartate Amino Transferase 30 U/L (17-59); Bilirubin,Total 1.1 mg/dL (0.2-1.3); Blood Urea Nitrogen 17 mg/dL (9-20); Calcium 9.8 mg/dL (8.4-10.2); Carbon Dioxide 24 mmol/L (22-30); Chloride 100 mmol/L (98-107); Estimated CRCL calculation 42 ml/min; Estimated Glomerular Filt Rate 51; Glucose 175 mg/dL (65-110); Lipase 44 U/L (23-300); Potassium 3.6 mmol/L (3.4-5.0); Sodium 136 mmol/L (137-145)
[2022-05-06 12:26] LABS: Troponin I 0.019 ng/mL (0.000-0.034)
--- NOTE | 2022-05-06 12:27 | PC.NURSE ---
Dr. Nicole at bedside to discuss results and treatment plan with pt.
[2022-05-06 12:33] LABS: Lactic Acid Reflex 2.5 mmol/L (0.7-2.0)
[2022-05-06 12:35] LABS: SARS-CoV-2 RNA PCR Positive
--- NOTE | 2022-05-06 12:53 | PC.NURSE ---
Pt resting comfortably on stretcher. Pt reports he is feeling much better at this time. Vital signs stable. Pt updated on plan of care. Call light within reach.
[2022-05-06 14:59] LABS: Troponin I 0.024 ng/mL (0.000-0.034)
[2022-05-06 15:21] LABS: Reflex Lactic Acid Yes or No Add Lactic
--- NOTE | 2022-05-06 15:50 | PM.IMHP ---
[facility] Past Medical History Medical History Anemia Anxiety Aortic stenosis mild Atrial flutter Back pain BPH (benign prostatic hyperplasia) Bronchitis Cataracts, bilateral Chest pain, musculoskeletal CHF (congestive heart failure) Echo 09/2018: EF of 50% and impaired diastolic relaxation grade 1 Chronic kidney disease COPD (chronic obstructive pulmonary disease) CVA (cerebral vascular accident) Right side effects Dementia Depression DVT (deep venous thrombosis) Emphysema of lung Epistaxis GERD (gastroesophageal reflux disease) Heart attack Pt reports old [place] but I could ot find any documentation in [facility], Care Everywhere, etc. Cardiac cath 2017 showed normal coronary arteries. Hepatitis C History of rectal polyps HLD (hyperlipidemia) HTN (hypertension) Kidney stones Osteoporosis Paroxysmal atrial fibrillation cardioversion x 2 Tuberculosis Surgical History Surgical History History of appendectomy Hx of cardiac catheterization x2 Hx of spinal surgery Family History Family History Father Heart disease Mother Diabetes mellitus Heart disease Hypertension Grandparent Hypertension Social History Social History Social History: Lives alone, sister Fleisa Jerome helps with his meds. he has 1 son. The patient used to smoke up to 2 packs of cigarettes a day and cut down to 1. He uses marijuana often. He retired from [employer]. Smoking packs per day: 1 Smoking cigarettes per day: 20.0 Years smoked: 50 Smoking pack-years: 50.00 Smoking status: Current some day smoker Tobacco type: cigarettes Second hand tobacco smoke exposure: No Alcohol intake: never Substance use: never Substance use type: does not use Last use: today Gender identity (if verbalized by the patient): Male Spiritual care concerns: No Agree to blood products: Yes Meds Home Medications and Allergies Home Medications Medication Instructions Recorded Confirmed Type apixaban 5 mg tablet (Eliquis) 5 mg PO BID 09/20/19 12/19/21 History atorvastatin 20 mg tablet 20 mg PO DAILY 09/20/19 12/19/21 History calcium carbonate 500 mg-vitamin 1 tablet PO DAILY 09/20/19 12/19/21 History D3 5 mcg (200 unit) tablet (Calcium 500 + D) cholecalciferol (vitamin D3) 125 5,000 unit PO DAILY 09/20/19 12/19/21 History mcg (5,000 unit) tablet (Vitamin D3) fluticasone propionate 50 2 spray intranasal DAILY 09/20/19 12/19/21 History mcg/actuation nasal spray,suspension (Allergy Relief (fluticasone)) gabapentin 300 mg capsule 300 mg PO TID 09/20/19 12/19/21 History omeprazole 20 mg capsule,delayed 20 mg PO BID 09/20/19 12/19/21 History release tamsulosin 0.4 mg capsule 0.4 mg PO DAILY 09/20/19 12/19/21 History folic acid 1 mg tablet 1 mg PO DAILY 10/01/19 12/19/21 History tiotropium bromide 2.5 2 puff inhalation DAILY 10/01/19 12/19/21 History mcg/actuation mist for inhalation (Spiriva Respimat) cyanocobalamin (vitamin B-12) 1,000 mcg IM MONTHLY 02/01/20 01/25/21 History 1,000 mcg/mL injection solution nitroglycerin 0.4 mg sublingual 0.4 mg sublingual Q5MIN PRN Chest 02/01/20 12/19/21 History tablet Pain acetaminophen 500 mg tablet 1,000 mg PO Q6H PRN Pain, Mild 01/25/21 12/19/21 History digoxin 125 mcg (0.125 mg) tablet 125 mcg PO DAILY 01/25/21 12/19/21 History diltiazem HCl 120 mg 120 mg PO HS 01/25/21 12/19/21 History capsule,extended release 24 hr diltiazem HCl 120 mg 240 mg PO QAM 01/25/21 12/19/21 History capsule,extended release 24 hr (Cardizem CD) ferrous sulfate 325 mg (65 mg 325 mg PO QMWF 01/25/21 12/19/21 History iron) tablet furosemide 20 mg tablet 20 mg PO DAILY 01/25/21 12/19/21 History ipratropium bromide 17 2 puff i
--- NOTE | 2022-05-06 15:55 | PC.NURSE ---
RN to bedside for repeat lactic. Pt states he does not want to be admitted and would like to sign out AMA. Pt states he lives at home alone and does not have anybody to care for his dog. Dr. Nicole made aware.
--- NOTE | 2022-05-06 16:00 | PC.NURSE ---
Dr. Nicole at bedside to speak with pt. Discussing benefits of admission and risks of leaving with pt. Pt is insistent on leaving. Verbalizes understanding and still wishes to leave.
== END 2022-05-06 16:35 | disposition left against medical advice (07) ==
PROVIDERS: Emergency Provider Preventive Medicine Aerospace Medicine; PCP Physician Assistant Medical
DX: U07.1 COVID-19 (principal); I48.0 Paroxysmal atrial fibrillation; R06.00 Dyspnea, unspecified; R07.9 Chest pain, unspecified; I35.0 Nonrheumatic aortic (valve) stenosis; I50.9 Heart failure, unspecified; I13.0 Hypertensive heart and chronic kidney disease with heart failure and stage 1 through stage 4 chronic kidney disease, or unspecified chronic kidney disease; N18.9 Chronic kidney disease, unspecified; J43.9 Emphysema, unspecified; I25.2 Old myocardial infarction; N40.0 Benign prostatic hyperplasia without lower urinary tract symptoms; K21.9 Gastro-esophageal reflux disease without esophagitis; M81.0 Age-related osteoporosis without current pathological fracture; Z86.718 Personal history of other venous thrombosis and embolism; Z79.01 Long term (current) use of anticoagulants; F17.210 Nicotine dependence, cigarettes, uncomplicated; I45.2 Bifascicular block; I49.1 Atrial premature depolarization
CPT/HCPCS: 36415; 71045; 80053; 83605; 83690; 84484; 85025; 85055; 85610; 85730; 87040; 92960; 93005; 96361; 96374; 96375; 99284; A9270; C9803; J0780; J1100; J2250; J3010; J7030; U0003; U0005

== ENCOUNTER 2022-08-29 17:46 | Emergency (ER) | payer MEDICARE, MEDICAID, SELFPAY ==
[2022-08-29] VITALS (24 sets, daily range): BP systolic 137–199; BP diastolic 89–172; PULSE 87–177; RESP 15–36; TEMP 37.1; O2SAT 97–100
--- NOTE | ~2022-08-29 | XR_ITS ---
EXAMINATION: XR chest 1V portable Exam Date/Time: 08/29/2022 18:20 TENNIS DIRECTOR HISTORY: a fib, HTN, HX COPD Comparison: 05/06/2022. RESULT: Lines, tubes, and devices: Upper lumbar vertebral plasty cement. Lungs and pleura: Ill-defined, patchy groundglass opacity in the lower lungs, overlying chronic viviana scent change. Stable nodular opacity in the left lung Cardiomediastinal silhouette: Stable. Other: No acute osseous or upper abdominal finding. IMPRESSION: Ill-defined patchy mid and lower lung ground glass opacities may reflect atypical infection in the ap propriate clinical context. Reviewed, dictated and finalized at location K. IS DIRECTOR IMPRESSION: Ill-defined patchy mid and lower lung ground glass opacities may reflect atypic al infection in the appropriate clinical context.
--- NOTE | 2022-08-29 17:45 | ECG_ITS ---
Measurements Intervals [place] Rate: 155 P: AL: 0 QRS: 268 QRSD: 136 T: 47 QT: 287 QTc: 461 Interpretive Statements ATRIAL FIBRILLATION WITH RAPID VENTRICULAR RESPONSE WITH ABERRANT CONDUCTION OR VENTRICULAR PREMATURE COMPLEXES MARKED RIGHT AXIS DEVIATION [QRS AXIS > 100] RIGHT BUNDLE BRANCH BLOCK [120+ ms QRS DURATION, UPRIGHT V1, 40+ ms S IN I/aVL/V4/V5/V6] ST DEPRESSION, CONSIDER SUBENDOCARDIAL INJURY [0.1+ mV ST DEPRESSION] COMPARED TO ECG 05/06/2022 11:49:10 ATRIAL FIBRILLATION NOW PRESENT ABERRANT CONDUCTION OF SUPRAVENTRICULAR BEAT(S) NOW PRESENT Electronically Signed On 08-30-2022 15:19:54 GUIDE CHANGER by Eri Dinero M.D.
[2022-08-29] MEDS: dilTIAZem 100 MG/100 ML 100 MG/100 ML BAG IV CONT (17:52)
[2022-08-29] MEDS: dilTIAZem HCl INJ 25 MG/5 ML VIAL 10 MG IV PUSH ×2 (17:52→18:14)
--- NOTE | 2022-08-29 18:10 | ED.CHESTPAIN ---
HPI - Chest Pain General Chief Complaint: Chest Pain Stated Complaint: CP History of Present Illness HPI narrative: 67-year-old male history of COPD and A. fib presenting to the emergency department for evaluation of rapid heart rate. Patient states approximately 45 minutes prior to arrival he had onset of A. fib. Patient does have follow-up with Dr. Amezcua and is scheduled for a liver biopsy at [facility] on . Related Data Home Medications Medication Instructions Recorded Confirmed apixaban 5 mg tablet (Eliquis) 5 mg PO BID 09/20/19 12/19/21 atorvastatin 20 mg tablet 20 mg PO DAILY 09/20/19 12/19/21 calcium carbonate 500 mg-vitamin 1 tablet PO DAILY 09/20/19 12/19/21 D3 5 mcg (200 unit) tablet (Calcium 500 + D) cholecalciferol (vitamin D3) 125 5,000 unit PO DAILY 09/20/19 12/19/21 mcg (5,000 unit) tablet (Vitamin D3) fluticasone propionate 50 2 spray intranasal DAILY 09/20/19 12/19/21 mcg/actuation nasal spray,suspension (Allergy Relief (fluticasone)) gabapentin 300 mg capsule 300 mg PO TID 09/20/19 12/19/21 omeprazole 20 mg capsule,delayed 20 mg PO BID 09/20/19 12/19/21 release tamsulosin 0.4 mg capsule 0.4 mg PO DAILY 09/20/19 12/19/21 folic acid 1 mg tablet 1 mg PO DAILY 10/01/19 12/19/21 tiotropium bromide 2.5 2 puff inhalation DAILY 10/01/19 12/19/21 mcg/actuation mist for inhalation (Spiriva Respimat) cyanocobalamin (vitamin B-12) 1,000 mcg IM MONTHLY 02/01/20 01/25/21 1,000 mcg/mL injection solution nitroglycerin 0.4 mg sublingual 0.4 mg sublingual Q5MIN PRN Chest 02/01/20 12/19/21 tablet Pain acetaminophen 500 mg tablet 1,000 mg PO Q6H PRN Pain, Mild 01/25/21 12/19/21 digoxin 125 mcg (0.125 mg) tablet 125 mcg PO DAILY 01/25/21 12/19/21 diltiazem HCl 120 mg 120 mg PO HS 01/25/21 12/19/21 capsule,extended release 24 hr diltiazem HCl 120 mg 240 mg PO QAM 01/25/21 12/19/21 capsule,extended release 24 hr (Cardizem CD) ferrous sulfate 325 mg (65 mg 325 mg PO QMWF 01/25/21 12/19/21 iron) tablet furosemide 20 mg tablet 20 mg PO DAILY 01/25/21 12/19/21 ipratropium bromide 17 2 puff inhalation Q6H 01/25/21 12/19/21 mcg/actuation HFA aerosol inhaler ascorbate calcium (vitamin C) 500 500 mg PO QMWF 12/19/21 12/19/21 mg capsule escitalopram oxalate 10 mg tablet 10 mg PO DAILY 12/19/21 12/19/21 loratadine 10 mg tablet 10 mg PO DAILY 12/19/21 12/19/21 metoprolol succinate 25 mg 50 mg PO QAM 12/19/21 12/19/21 tablet,extended release 24 hr (Toprol XL) rivaroxaban 15 mg 05/06/22 roflumilast 250 mcg tablet 250 mcg PO DAILY 05/06/22 (Daliresp) Allergies Allergy/AdvReac Type Severity Reaction Status Date / Time albuterol AdvReac Shakiness Verified 05/06/22 11:36 Review of Systems Review of Systems: CONSTITUTIONAL: Denies fever, chills, or sweats. EYES: Denies visual changes, redness, or discharge. ENT: Denies rhinorrhea, congestion, sore throat, or otalgia. CARDIOVASCULAR: See HPI RESPIRATORY: Denies cough or dyspnea. GASTROINTESTINAL: Denies abdominal pain, nausea, vomiting, or diarrhea. GENITOURINARY: Denies dysuria or hematuria. SKIN: Denies rash or itching. MUSCULOSKELETAL: Denies back pain, joint pain, or myalgia. NEUROLOGIC: Denies headache, numbness, or weakness. [facility] Past Medical History Medical History Anemia Anxiety Aortic stenosis mild Atrial flutter Back pain BPH (benign prostatic hyperplasia) Bronchitis Cataracts, bilateral Chest pain, musculoskeletal CHF (congestive heart failure) Echo 09/2018: EF of 50% and impaired diastolic relaxation grade 1 Chronic kidney disease COPD (chronic obstructive pulmonary disease) CVA (cerebral vascular accident) Right side effects Dementia Depression DVT (deep venous thrombosis) Emphysema of lung Epistaxis GERD (gastroesophageal reflux disease) Heart attack Pt reports old [place] but I could ot find any documentation in [facility], [facility] Everywhe
[2022-08-29] MEDS: LORazepam INJ (*CRX) 2 MG/ML VIAL 0.5 MG IV PUSH ×2 (18:14→19:03)
--- NOTE | 2022-08-29 18:15 | ECG_ITS ---
Measurements Intervals [place] Rate: 93 P: NM: 0 QRS: -90 QRSD: 146 T: 45 QT: 373 QTc: 466 Interpretive Statements ATRIAL FIBRILLATION MARKED LEFT AXIS DEVIATION [QRS AXIS < -30] RIGHT BUNDLE BRANCH BLOCK [120+ ms QRS DURATION, UPRIGHT V1, 40+ ms S IN I/aVL/V4/V5/V6] COMPARED TO ECG 08/29/2022 17:49:16 HEART RATE HAS DECREASED Electronically Signed On 08-30-2022 15:21:52 DIRECTOR LABOR STANDARDS by Eri Dinero M.D.
--- NOTE | 2022-08-29 18:18 | PC.NURSE ---
pt agitated, threatening, trying to rip off pads, monitors and other equipment. pt concerned about being cardioverted order for ativan 0.[address] Manning
[2022-08-29 18:28] LABS: Basophils Absolute Auto 0.1 K/mm3 (0.0-0.1); Basophils Percent Auto 1.2 % (0.2-1.2); Eosinophils Absolute Auto 0.2 K/mm3 (0-0.3); Eosinophils Percent Auto 1.5 % (0-4.4); Hemoglobin 15.8 g/dL (14.0-18.0); Immature Granulocyte Absolute 0.04 K/mm3 (0.00-0.031); Immature Granulocyte Percent A 0.4 % (0-0.5); Lymphocytes Absolute Auto 3.79 K/mm3 (0.9-3.2); Lymphocytes Percent Auto 38.1 % (18.3-44.2); Mean Corpuscular HGB Conc 34.3 g/dl (32-36); Mean Corpuscular Hemoglobin 32.2 pg (26-34); Mean Corpuscular Volume 93.9 fl (80-100); Mean Platelet Volume 10.7 fl (7.4-10.4); Monocytes Absolute Auto 0.6 K/mm3 (0.1-0.6); Monocytes Percent Auto 6.4 % (2.6-8.5); Neutrophils Absolute Auto 5.2 K/mm3 (1.3-6.7); Neutrophils Percent Auto 52.4 % (45.5-73.1); Platelet Count Result 209 k/mm3 (150-375); Red Cell Distribution Width 14.3 % (11.5-14.5)
[2022-08-29 18:42] LABS: INR 1.1; Prothrombin Time 13.3 Seconds (11.1-14.7)
[2022-08-29 18:43] LABS: Partial Thromboplastin Time 27.8 SECONDS (22.3-36.8)
[2022-08-29 18:44] LABS: Alanine Aminotransferase 16 U/L (6-50); Albumin Level 4.8 g/dL (3.5-5.1); Alkaline Phosphatase 116 U/L (38-126); Anion Gap 12 mmol/L (8-16); Aspartate Amino Transferase 24 U/L (17-59); Bilirubin,Total 0.7 mg/dL (0.2-1.3); Blood Urea Nitrogen 18 mg/dL (9-20); Calcium 9.4 mg/dL (8.4-10.2); Carbon Dioxide 22 mmol/L (22-30); Chloride 102 mmol/L (98-107); Estimated CRCL calculation 37 ml/min; Estimated Glomerular Filt Rate 43; Glucose 117 mg/dL (65-110); Potassium 3.5 mmol/L (3.4-5.0); Sodium 136 mmol/L (137-145)
[2022-08-29 18:56] LABS: Troponin I 0.026 ng/mL (0.000-0.034)
[2022-08-29] MEDS: SODIUM CHLORIDE 0.9% IV 1,000 ML 999 ML IV CONT (19:03)
[2022-08-29 20:05] LABS: Appearance Urine Clear (Clear); Bilirubin Urine Negative (Negative); Blood Urine 1+ (Negative); Color Urine Yellow (Yellow); Glucose Urine UA Negative (Negative); Ketones Urine Negative (Negative); Leukocyte Esterase Ur Negative LEU/UL (Negative); Nitrate Urine Negative (Negative); Protein Urine 3+ mg/dL (Negative); Specific Grav Ur 1.025 (1.001-1.035); Urobilinogen Urine 0.2 mg/dL (<2.0)
[2022-08-29 20:10] LABS: Bacteria Urine Trace /hpf; Mucus Urine Rare /lpf
[2022-08-29 20:11] LABS: Add Urine Microscopic? YES
[2022-08-29] MEDS: MORPHINE SULFATE (*CRX) 2 MG/ML INJ IV PUSH (20:43)
[2022-08-29 21:26] LABS: Troponin I 0.035 ng/mL (0.000-0.034)
[2022-08-29 21:47] LABS: Influenza A QL RT-PCR Negative (Negative); Influenza B QL RT-PCR Negative (Negative); SARS-CoV-2 RNA PCR Negative
--- NOTE | 2022-08-29 22:00 | PC.NURSE ---
pt requesting to leave against medical advise, rn and erp in room pt understands risks of leaving VS benefits of staying. pt alert and oriented.
== END 2022-08-29 22:19 | disposition left against medical advice (07) ==
PROVIDERS: Emergency Provider Emergency Medicine; PCP Physician Assistant Medical
DX: I48.0 Paroxysmal atrial fibrillation (principal); I13.0 Hypertensive heart and chronic kidney disease with heart failure and stage 1 through stage 4 chronic kidney disease, or unspecified chronic kidney disease; N18.9 Chronic kidney disease, unspecified; I50.9 Heart failure, unspecified; I35.0 Nonrheumatic aortic (valve) stenosis; I69.90 Unspecified sequelae of unspecified cerebrovascular disease; F03.90 Unspecified dementia, unspecified severity, without behavioral disturbance, psychotic disturbance, mood disturbance, and anxiety; J43.9 Emphysema, unspecified; K21.9 Gastro-esophageal reflux disease without esophagitis; N40.0 Benign prostatic hyperplasia without lower urinary tract symptoms; M81.0 Age-related osteoporosis without current pathological fracture; F41.9 Anxiety disorder, unspecified; F32.A Depression, unspecified; F17.210 Nicotine dependence, cigarettes, uncomplicated; Z20.822 Contact with and (suspected) exposure to COVID-19; Z86.718 Personal history of other venous thrombosis and embolism; Z86.19 Personal history of other infectious and parasitic diseases; Z86.11 Personal history of tuberculosis; Z87.442 Personal history of urinary calculi; Z87.19 Personal history of other diseases of the digestive system; Z86.2 Personal history of diseases of the blood and blood-forming organs and certain disorders involving the immune mechanism; Z79.01 Long term (current) use of anticoagulants; I49.3 Ventricular premature depolarization; I45.10 Unspecified right bundle-branch block; R94.31 Abnormal electrocardiogram [ECG] [EKG]
CPT/HCPCS: 36415; 71045; 80053; 81001; 84484; 85025; 85610; 85730; 87636; 93005; 96365; 96366; 96375; 96376; 99284; J2060; J2270; J7030

== ENCOUNTER 2023-02-22 19:10 | Observation (INO) | payer MEDICARE, MEDICAID, SELFPAY ==
--- NOTE | ~2023-02-22 | CT_ITS ---
EXAMINATION: CT abdomen pelvis w con DATE: 02/22/2023 21:49 INDICATION: abd pain .n/v TECHNIQUE: Computed tomography (CT) of the abdomen and pelvis was performed with 100 mL Omnipaque-350 intravenous contrast. Automated exposure control and iterative reconstruction technique were employe d. The dose-length product was 241.73 mGy-cm. COMPARISON: 07/05/2019. FINDINGS: Lower thorax: Aortic valve replacement. Liver: 7.1 cm somewhat heterogeneously enhancing liver mass in segment IVb. Surgical clips noted beto cent to the mass. The mass displaces adjacent parenchymal tissue and causes obstruction of the left b iliary ducts. Biliary/Gallbladder: Gallbladder is normal. Mild dilation of multiple left biliary ducts. No extrahep atic bile duct dilation. Pancreas: No mass or duct dilation. Spleen: Normal. Adrenals:No mass. Kidneys: Severe atrophy and scarring of the left upper and mid poles. Multiple hypodensities, too sma ll to characterize. No obstructing calcification or suspicious mass. GI tract: Uncomplicated appearing duodenal diverticulum. Mild distal esophageal and gastric wall dexter a. No small or large bowel dilation. Normal appendix. Diverticulosis without diverticulitis. Mesentery/Peritoneum: No ascites, mass, or free air. Scattered surgical clips and embolization coils in the right upper quadrant. Retroperitoneum: No mass. Atherosclerotic abdominal aortic and/or arterial calcifications. Pelvis: Mild prostatomegaly with calcifications. Nondistended urinary bladder. Soft Tissues: Small uncomplicated umbilical and right inguinal hernias. Bones: No acute osseous finding. Vertebroplasty cement at L2. Stable moderate anterior wedge deformi ty at L1 and L2 IMPRESSION: 1. 7.1 cm left liver lobe mass causing mild intrahepatic bile duct dilation in the left lobe. 2. Mild esophagitis/gastritis. Reviewed, dictated and finalized at location K.
--- NOTE | ~2023-02-22 | XR_ITS ---
EXAMINATION: XR chest 1V portable Exam Date/Time: 02/22/2023 19:50 CDT HISTORY: sob, NAUSEAS/VOMITING, CP 2 DAYS, SMOKER, HTN, AFIB Comparison: 08/29/2022. RESULT: Lines, tubes, and devices: Cardiac valve replacement. Surgical clips and embolization coils over the upper abdomen. Vertebroplasty cement at the thoracolumbar junction. Lungs and pleura: Mild senescent change, otherwise clear. Cardiomediastinal silhouette: Stable. Other: No acute osseous or upper abdominal finding. IMPRESSION: No acute cardiopulmonary process. Reviewed, dictated and finalized at location K.
[2023-02-22 19:10] VITALS: BP 151/121; PULSE 104; RESP 40; TEMP 36.4; O2SAT 100
--- NOTE | 2023-02-22 19:28 | ECG_ITS ---
Measurements Intervals [place] Rate: 104 P: [place]: 0 QRS: -90 QRSD: 148 T: 46 QT: 339 QTc: 447 Interpretive Statements ATRIAL FIBRILLATION WITH RAPID VENTRICULAR RESPONSE RIGHT BUNDLE BRANCH BLOCK LEFT ANTERIOR FASCICULAR BLOCK BASELINE ARTIFACT- I, II, III, AVR, V1-V3, V6 ABNORMAL ECG COMPARED TO ECG 08/29/2022 18:34:18 HEART RATE HAS INCREASED Electronically Signed On 02-22-2023 22:10:40 CDT by Filippo Greenwood D.O.
[2023-02-22] MEDS: SODIUM CHLORIDE 0.9% IV 1,000 ML 150 ML IV CONT (19:40)
[2023-02-22 19:43] LABS: Basophils Absolute Auto 0.1 K/mm3 (0.0-0.1); Basophils Percent Auto 0.7 % (0.2-1.2); Eosinophils Percent Auto 0.5 % (0-4.4); Hematocrit 45.8 % (42.0-52.0); Hemoglobin 15.6 g/dL (14.0-18.0); Immature Granulocyte Absolute 0.04 K/mm3 (0.00-0.031); Immature Granulocyte Percent A 0.5 % (0-0.5); Lymphocytes Absolute Auto 1.11 K/mm3 (0.9-3.2); Lymphocytes Percent Auto 13.6 % (18.3-44.2); Mean Corpuscular HGB Conc 34.1 g/dl (32-36); Mean Corpuscular Hemoglobin 33.1 pg (26-34); Monocytes Absolute Auto 0.7 K/mm3 (0.1-0.6); Monocytes Percent Auto 8.2 % (2.6-8.5); Neutrophils Absolute Auto 6.3 K/mm3 (1.3-6.7); Neutrophils Percent Auto 76.5 % (45.5-73.1); Platelet Count Result 150 k/mm3 (150-375); Red Blood Count 4.72 M/mm3 (4.6-6.20); Red Cell Distribution Width 13.6 % (11.5-14.5); White Blood Count 8.2 K/mm3 (4.5-10.0)
[2023-02-22] MEDS: PROCHLORPERAZINE EDISYLATE 10 MG/2 ML VIAL 5 MG IV PUSH ×2 (19:51→20:59)
[2023-02-22 19:55] LABS: INR 1.1; Prothrombin Time 14.4 Seconds (11.1-14.7)
[2023-02-22 20:36] VITALS: BP 189/111; PULSE 97; RESP 25; O2SAT 100
[2023-02-22 21:20] VITALS: PULSE 102
[2023-02-22 21:30] LABS: Alanine Aminotransferase 16 U/L (6-50); Albumin Level 4.4 g/dL (3.5-5.1); Alkaline Phosphatase 119 U/L (38-126); Anion Gap 10 mmol/L (8-16); Aspartate Amino Transferase 24 U/L (17-59); Blood Urea Nitrogen 21 mg/dL (9-20); Calcium 9.6 mg/dL (8.4-10.2); Carbon Dioxide 22 mmol/L (22-30); Chloride 108 mmol/L (98-107); Estimated CRCL calculation 43 ml/min; Estimated Glomerular Filt Rate 50; Glucose 97 mg/dL (65-110); Potassium 3.6 mmol/L (3.4-5.0); Sodium 140 mmol/L (137-145)
[2023-02-22 21:36] LABS: Appearance Urine Clear (Clear); Bacteria Urine None Seen /hpf; Bilirubin Urine Negative (Negative); Blood Urine Negative (Negative); Color Urine Dark Yellow (Yellow); Glucose Urine UA Negative (Negative); Ketones Urine Trace mg/dL (Negative); Leukocyte Esterase Ur Trace LEU/UL (Negative); Nitrate Urine Negative (Negative); Protein Urine 4+ mg/dL (Negative); Specific Grav Ur 1.027 (1.001-1.035); Squamous Epithelial Cell Urine None seen /hpf (Few); WBC Urine 0-5 /hpf
[2023-02-22 21:47] LABS: Add Urine Microscopic? YES
[2023-02-22 21:49] LABS: NT Pro B Type Natriuretic Pept 9110 pg/mL (19.9-100); Troponin I 0.028 ng/mL (0.000-0.034)
[2023-02-22 22:33] VITALS: BP 177/105; PULSE 99; RESP 19; O2SAT 100
--- NOTE | 2023-02-22 22:48 | PM.IMHP ---
H&P: HPI History of Present Illness Date/Time: 02/22/23 22:48 Chief Complaint: Chest discomfort Narrative: This is [id number] gentleman with a past medical history including but not limited to atrial fibrillation on Xarelto, COPD, liver CA, heart failure, major depression, presently going through radiation treatment at [facility] was brought by EMS to the emergency department with complaints of not feeling well since this morning. ? he has experienced recurrent hospitalizations at multiple institutions.? He also has depression and a history of some CHF. The patient states he was having some chest discomfort late in the evening called 911 upon their arrival patient was in A-fib with RVR with a heart rate in 160s to 180s , he was given IV metoprolol on route to the hospital.? He presently denies any shortness of breath or chest pain but complains of intense nausea and vomiting. the patient also experienced several episodes of nausea and vomiting. on arrival to the emergency department the patient had the following vital Signs a temperature of 36.4? C, pulse rate 104, respiration 40, blood pressure 151 over 121, pulse ox 100% on room air. The EKG showed atrial fibrillation with rapid ventricular response with a heart rate of 104. He CBC showed a WBC of 8.2, hemoglobin 15.6, hematocrit 45.8 and a platelet count of 150. His chemistry shows a sodium of 140, potassium 3.6, chloride 108, bicarb 22, BUN 21 and a creatinine of 1.4. The patient was started on diltiazem drip with improvement of the heart rate to 105. His home p.o. diltiazem was resumed and the diltiazem was tapered off. Arrival to ICU patient had another episode of vomiting and had to be medicated to with Zofran. Review of Systems Review of Systems: CONSTITUTIONAL: Negative for any fevers, chills, night sweats, tiredness, fatigue, malaise, anorexia or weight loss. CARDIOVASCULAR: Positive for chest pain, palpitations; Negative for dizziness, orthopnea or lower extremity edema. RESPIRATORY: Negative for shortness of breath, cough, wheezing, sputum. GASTROENTEROLOGIC: positive for nausea and vomiting. Negative for diarrhea. GENITOURINARY: Negative for frequency, nocturia, dysuria, hematuria. GYNECOLOGIC: Negative for abnormal bleeding. HEMATOLOGIC: Negative for any abnormal bleeding or bruising. MUSCULOSKELETAL: Negative for joint swelling, stiffness or pain. SKIN: Negative for rashes, eruptions, lesions or dryness. NEUROLOGIC: Negative for any focal neurologic complaints. PSYCHIATRIC: Negative for anxiety, panic, depression. [facility] Past Medical History Medical History Anemia Anxiety Aortic stenosis mild Atrial flutter Back pain BPH (benign prostatic hyperplasia) Bronchitis Cataracts, bilateral Chest pain, musculoskeletal CHF (congestive heart failure) Echo 09/2018: EF of 50% and impaired diastolic relaxation grade 1 Chronic kidney disease COPD (chronic obstructive pulmonary disease) CVA (cerebral vascular accident) Right side effects Dementia Depression DVT (deep venous thrombosis) Emphysema of lung Epistaxis GERD (gastroesophageal reflux disease) Heart attack Pt reports old [place] but I could ot find any documentation in [facility], Care Everywhere, etc. Cardiac cath 2016 showed normal coronary arteries. Hepatitis C History of rectal polyps HLD (hyperlipidemia) HTN (hypertension) Kidney stones Osteoporosis Paroxysmal atrial fibrillation cardioversion x 2 Tuberculosis Surgical History Surgical History History of appendectomy Hx of cardiac catheterization x2 Hx of spinal surgery Family History Family History Father Heart disease Mother Diabetes mellitus Heart disease Hypertension Grandparent Hypertension Social History Social History (Reviewed 02/23/23 @ 05:25 by
[2023-02-22 23:00] VITALS: BP 180/98; PULSE 107; RESP 17; O2SAT 98
--- NOTE | 2023-02-22 23:02 | ED.ARRPALP ---
HPI - Arrhythmia/Palpitations General Chief Complaint: Arrhythmia/Palpitations Stated Complaint: SOB, N/V, AFIB w/ RVR Source: patient Mode of arrival: EMS Limitations: no limitations History of Present Illness HPI narrative: 67-year-old with history of COPD, A-fib on Xarelto, liver CA presently going through radiation treatment at [facility] here with complaints of not feeling well since this morning , patient states he was having some chest discomfort late in the evening called 911 upon their arrival patient was in A-fib with RVR with a heart rate in 160s to 180s , he was given IV metoprolol on route to the hospital. He presently denies any shortness of breath or chest pain but complains of intense nausea and vomiting. MD complaint: rapid heart beat Onset (ago): day(s) (1) Duration: constant Severity: moderate Context: occurred during rest Arrhythmia history: atrial fibrillation Associated symptoms: nausea and vomiting Related Data Home Medications Medication Instructions Recorded Confirmed atorvastatin 20 mg tablet 20 mg PO DAILY 09/20/19 12/19/21 cholecalciferol (vitamin D3) 125 5,000 unit PO DAILY 09/20/19 12/19/21 mcg (5,000 unit) tablet (Vitamin D3) acetaminophen 500 mg tablet 1,000 mg PO Q6H PRN Pain, Mild 01/25/21 12/19/21 digoxin 125 mcg (0.125 mg) tablet 125 mcg PO DAILY 01/25/21 12/19/21 diltiazem HCl 120 mg 120 mg PO HS 01/25/21 12/19/21 capsule,extended release 24 hr diltiazem HCl 120 mg 240 mg PO QAM 01/25/21 12/19/21 capsule,extended release 24 hr (Cardizem CD) ascorbate calcium (vitamin C) 500 500 mg PO QMWF 12/19/21 12/19/21 mg capsule loratadine 10 mg tablet 10 mg PO DAILY 12/19/21 12/19/21 Allergies Allergy/AdvReac Type Severity Reaction Status Date / Time albuterol AdvReac Shakiness Verified 11/21/22 09:02 Review of Systems Review of Systems: All systems reviewed & are unremarkable except as noted in HPI and below Constitutional: Constitutional: Reports no additional constitutional complaints Eyes: Eyes: Reports no additional eye complaints ENT: Reports system reviewed and no additional complaints, except as documented Cardiovascular: Cardiovascular: Reports as per HPI Respiratory: Respiratory: Reports no additional respiratory complaints Gastrointestinal: Gastrointestinal: Reports as per HPI Musculoskeletal: Musculoskeletal: Reports no additional musculoskeletal complaints Integumentary/Breasts: Skin/Breast: Reports system reviewed and no additional complaints, except as docu Neurologic: Reports system reviewed and no additional complaints, except as documented PMFSH Past Medical History Medical History Anemia Anxiety Aortic stenosis mild Atrial flutter Back pain BPH (benign prostatic hyperplasia) Bronchitis Cataracts, bilateral Chest pain, musculoskeletal CHF (congestive heart failure) Echo 09/2018: EF of 50% and impaired diastolic relaxation grade 1 Chronic kidney disease COPD (chronic obstructive pulmonary disease) CVA (cerebral vascular accident) Right side effects Dementia Depression DVT (deep venous thrombosis) Emphysema of lung Epistaxis GERD (gastroesophageal reflux disease) Heart attack Pt reports old [place] but I could ot find any documentation in [facility], Care Everywhere, etc. Cardiac cath 2016 showed normal coronary arteries. Hepatitis C History of rectal polyps HLD (hyperlipidemia) HTN (hypertension) Kidney stones Osteoporosis Paroxysmal atrial fibrillation cardioversion x 2 Tuberculosis Surgical History Surgical History History of appendectomy Hx of cardiac catheterization x2 Hx of spinal surgery Family History Family History Father Heart disease Mother Diabetes mellitus Heart disease Hypertension Grandparent Hypertension Social History Social Hi
[2023-02-22 23:15] VITALS: BP 176/103; PULSE 103
[2023-02-22] MEDS: dilTIAZem 100 MG/100 ML 100 MG/100 ML BAG IV CONT (23:15)
[2023-02-23] VITALS (11 sets, daily range): BP systolic 153–173; BP diastolic 87–117; PULSE 86–118; RESP 16–22; TEMP 36.4–37.2; O2SAT 95–98; BMI 21.9
--- NOTE | 2023-02-23 | ADMIMU ---
This patient, Guero Ahmadi, was admitted to IMU status, and placed in Intensive Care Unit-1. Patient/family oriented to hospital policies and general routines including ID bracelet, bed and alarms, visiting hours, pain management, procedures, bathroom and other care routines, personal items, smoking policy, room service/diet, and visiting hours. Valuables list has been completed. Information on how to activate the Rapid Response Team has been discussed. Patient/Family are encouraged to report perceived risks to care and to ask questions if they do not understand what they are told or what they should do.
[2023-02-23] MEDS: ONDANSETRON INJ 4 MG/2 ML VIAL IV PUSH ×4 (00:13→17:59)
[2023-02-23 02:53] LABS: Troponin I 0.038 ng/mL (0.000-0.034)
[2023-02-23] MEDS: SODIUM CHLORIDE 0.9% IV 1,000 ML 125 ML IV CONT (03:00)
[2023-02-23 06:41] LABS: Basophils Absolute Auto 0.1 K/mm3 (0.0-0.1); Basophils Percent Auto 0.9 % (0.2-1.2); Eosinophils Percent Auto 0.5 % (0-4.4); Hematocrit 42.2 % (42.0-52.0); Hemoglobin 14.3 g/dL (14.0-18.0); Immature Granulocyte Absolute 0.04 K/mm3 (0.00-0.031); Immature Granulocyte Percent A 0.5 % (0-0.5); Immature Platelet Fraction Pct 5.1 % (0.9-11.2); Lymphocytes Percent Auto 13.6 % (18.3-44.2); Mean Corpuscular HGB Conc 33.9 g/dl (32-36); Mean Corpuscular Hemoglobin 32.9 pg (26-34); Mean Corpuscular Volume 97.2 fl (80-100); Mean Platelet Volume 10.9 fl (7.4-10.4); Monocytes Absolute Auto 0.8 K/mm3 (0.1-0.6); Monocytes Percent Auto 9.3 % (2.6-8.5); Neutrophils Absolute Auto 6.1 K/mm3 (1.3-6.7); Neutrophils Percent Auto 75.2 % (45.5-73.1); Platelet Count Result 126 k/mm3 (150-375); Red Blood Count 4.34 M/mm3 (4.6-6.20); Red Cell Distribution Width 13.6 % (11.5-14.5); White Blood Count 8.1 K/mm3 (4.5-10.0)
[2023-02-23 06:59] LABS: Anion Gap 8 mmol/L (8-16); Blood Urea Nitrogen 20 mg/dL (9-20); Calcium 8.7 mg/dL (8.4-10.2); Carbon Dioxide 21 mmol/L (22-30); Chloride 111 mmol/L (98-107); Estimated CRCL calculation 45 ml/min; Estimated Glomerular Filt Rate 55; Glucose 95 mg/dL (65-110); Magnesium 1.6 mg/dL (1.6-2.3); Potassium 3.8 mmol/L (3.4-5.0); Sodium 140 mmol/L (137-145)
--- NOTE | 2023-02-23 07:00 | ECG_ITS ---
Measurements Intervals [place] Rate: 85 P: MD: 0 QRS: -85 QRSD: 154 T: 0 QT: 375 QTc: 448 Interpretive Statements ATRIAL FIBRILLATION MARKED LEFT AXIS DEVIATION [QRS AXIS < -30] RIGHT BUNDLE BRANCH BLOCK [120+ ms QRS DURATION, UPRIGHT V1, 40+ ms S IN I/aVL/V4/V5/V6] COMPARED TO ECG 02/22/2023 19:16:28 VENTRICULAR RATE HAS DECREASED Electronically Signed On 02-23-2023 15:32:17 CDT by Eri Dinero M.D.
[2023-02-23 07:22] LABS: Free T4 Free Thyroxine 1.75 ng/mL (0.78-2.19)
--- NOTE | 2023-02-23 08:32 | PM.IMPN ---
Progress Note: A&P Assessment and Plan (1) Intractable nausea and vomiting: Code(s): R11.2 - Nausea with vomiting, unspecified Status: Acute Assessment and Plan: Currently being worked up by his primary care physician, GI consult requested for possible EGD, differential includes gastritis, side effects from liver cancer and radiation treatment (2) Liver lesion: Code(s): K76.9 - Liver disease, unspecified Status: Acute Assessment and Plan: Being treated at [facility] with radiation treatment for liver cancer (3) CHF (congestive heart failure): Qualifiers: Heart failure chronicity: chronic Heart failure type: diastolic Qualified Code(s): I50.32 - Chronic diastolic (congestive) heart failure Code(s): I50.9 - Heart failure, unspecified Status: Chronic Assessment and Plan: Appears euvolemic at this time, continue home medications (4) Chronic kidney disease: Qualifiers: Chronic kidney disease stage: stage 3 (moderate) Qualified Code(s): N18.3 - Chronic kidney disease, stage 3 (moderate) Code(s): N18.9 - Chronic kidney disease, unspecified Status: Chronic Assessment and Plan: Patient has known chronic kidney disease with creatinine fluctuating in the 1.4- 1.7 range between November 2021 and January 2023. Avoid nephrotoxic medication. (5) Atrial fibrillation with rapid ventricular response: Code(s): I48.91 - Unspecified atrial fibrillation Status: Acute Assessment and Plan: Currently weaned up off diltiazem drip, monitor on oral diltiazem and home medications Continue Xarelto for now, hold for EGD Plan DVT prophylaxis with Xarelto--held for EGD GI prophylaxis with PPI Code status full code Subjective Date/time seen: 02/23/23 08:32 Interval history: 67-year-old male with history of AFib on Xarelto, COPD, liver failure, heart failure depression is currently going through radiation treatment at [facility] is presenting with general feeling of malaise and 3 month history of nausea with emesis being treated for AFib with RVR. No overnight events noted. No chest pain or shortness of breath. No fevers or chills. Review of Systems Review of Systems: 12 point review of systems was assessed and was negative except as noted in the HPI Exam Narrative: General: No acute distress, alert and oriented per baseline HEENT: Atraumatic, normocephalic, mucous membranes moist CV: Irregularly irregular, S1, S2 Lungs: Clear to auscultation bilaterally, no rales or crackles noted, no wheezes, good air entry Abdomen: Soft, nontender, nondistended Extremities: Normal to inspection Skin: No rashes noted, no lesions or wounds seen Psych: Euthymic, normal affect Objective Data Vital Signs Vital Signs: Vital Signs - 24 hr 02/22/23 19:10 02/22/23 20:36 02/22/23 21:20 Temperature 97.6 F Pulse Rate 104 H 97 102 H Respiratory Rate 40 H 25 H Blood Pressure 151/121 H 189/111 H Pulse Oximetry 100 100 Oxygen Delivery Room Air 02/22/23 22:33 02/22/23 23:00 02/22/23 23:15 Temperature Pulse Rate 99 107 H 103 H Respiratory Rate 19 17 Blood Pressure 177/105 H 180/98 H 176/103 H Pulse Oximetry 100 98 Oxygen Delivery 02/23/23 00:00 02/23/23 00:00 02/23/23 00:00 Temperature 98.9 F Pulse Rate 118 H 118 H 118 H Respiratory Rate 16 16 Blood Pressure 153/107 H Pulse Oximetry 96 96 Oxygen Delivery Room Air 02/23/23 00:30 02/23/23 03:40 02/23/23 03:42 Temperature Pulse Rate 102 H 87 87 Respiratory Rate 20 20 Blood Pressure 172/97 H Pulse Oximetry 96 96 Oxygen Delivery Room Air 02/23/23 03:42 Temperature 98.1 F Pulse Rate 87 Respiratory Rate 20 Blood Pressure 169/103 H Pulse Oximetry 96 Oxygen Delivery Intake/Output Intake/Output: Intake & Output 02/20/23 02/21/23 02/22/23 02/23/23
[2023-02-23] MEDS: PANTOPRAZOLE SODIUM IV 40 MG VIAL IV PUSH ×2 (09:29→20:19)
[2023-02-23] MEDS: ESCITALOPRAM OXALATE 10 MG TABLET PO (09:30)
[2023-02-23] MEDS: TAMSULOSIN HCL 0.4 MG CAPSULE PO (09:30)
[2023-02-23] MEDS: FUROSEMIDE 20 MG TABLET PO (09:30)
[2023-02-23] MEDS: ASCORBIC ACID 500 MG TABLET PO (09:30)
[2023-02-23] MEDS: DIGOXIN TAB 125 MCG TABLET PO (09:30)
[2023-02-23] MEDS: ATORVASTATIN 20 MG TABLET PO (09:30)
[2023-02-23] MEDS: METOPROLOL SUCCINATE EXT REL 50 MG TABCR PO (09:30)
[2023-02-23] MEDS: LORATADINE 10 MG TABLET PO (09:30)
[2023-02-23] MEDS: GABAPENTIN 300 MG CAPSULE BY MOUTH ×2 (09:31→16:39)
[2023-02-23] MEDS: FERROUS SULFATE 324 MG TABLET PO (09:31)
[2023-02-23] MEDS: busPIRone HCL 10 MG TABLET PO (09:31)
[2023-02-23] MEDS: CHOLECALCIFEROL 1,000 UNITS TABLET 5000 UNITS PO (09:31)
--- NOTE | 2023-02-23 10:22 | PM.CNCAR ---
Assessment and Plan Assessment and plan (1) Atrial fibrillation with rapid ventricular response: Code(s): I48.91 - Unspecified atrial fibrillation Status: Acute Assessment and Plan: Telemetry shows atrial fibrillation with controlled ventricular rates for the most part. Has occasional RVR but is rate controlled most of the time. Continue home doses of Digoxin and Cardizem. Will increase his Metoprolol to 75mg to optimize rate control. Was on Xarelto 15mg QD at home, but currently on 20mg. Agree with the 20mg dose for stroke prophylaxis dose for atrial fibrillation. (2) Chronic anticoagulation: Code(s): Z79.01 - technician terminal and repeater (current) use of anticoagulants Status: Acute Assessment and Plan: Was on Xarelto 15mg QD at home, but currently on 20mg. Agree with the 20mg dose for stroke prophylaxis dose for atrial fibrillation. History of Present Illness History of Present Illness Consult date/time: 02/23/23 10:22 Requesting physician: Aleena Bryan DO Consult reason: atrial fibrillation Reason For Visit: A-Fib w/RVR Narrative: We are consulted for atrial fibrillation with RVR. This is a 67-year-old male with known atrial fibrillation, COPD, liver cancer who presented with not feeling well, abdominal pain, nausea, vomiting. Upon presentation, initially in atrial fibrillation with RVR with HR in the 160s to 180s. Given IV Metoprolol and started on Cardizem drip, which was weaned off. Patient is now on his home doses of Cardizem, Digoxin and Metoprolol, along with Xarelto for anticoagulation. Patient denies chest pain, palpitations. Still with abdominal pain, nausea. Review of Systems Review of Systems: All systems reviewed & are unremarkable except as noted in HPI and below (HPI) [facility] Past Medical History Medical History Anemia Anxiety Aortic stenosis mild Atrial flutter Back pain BPH (benign prostatic hyperplasia) Bronchitis Cataracts, bilateral Chest pain, musculoskeletal CHF (congestive heart failure) Echo 09/2018: EF of 50% and impaired diastolic relaxation grade 1 Chronic kidney disease COPD (chronic obstructive pulmonary disease) CVA (cerebral vascular accident) Right side effects Dementia Depression DVT (deep venous thrombosis) Emphysema of lung Epistaxis GERD (gastroesophageal reflux disease) Heart attack Pt reports old [place] but I could ot find any documentation in [employer] [place], Care Everywhere, etc. Cardiac cath 2017 showed normal coronary arteries. Hepatitis C History of rectal polyps HLD (hyperlipidemia) HTN (hypertension) Kidney stones Osteoporosis Paroxysmal atrial fibrillation cardioversion x 2 Tuberculosis Surgical History Surgical History History of appendectomy Hx of cardiac catheterization x2 Hx of spinal surgery Family History Family History Father Heart disease Mother Diabetes mellitus Heart disease Hypertension Grandparent Hypertension Social History Social History Social History: Lives alone, sister Felisa Jerome helps with his meds. he has 1 son. The patient used to smoke up to 2 packs of cigarettes a day and cut down to 1. He uses marijuana often. He retired from [employer]. Smoking packs per day: 1 Smoking cigarettes per day: 20.0 Years smoked: 50 Smoking pack-years: 50.00 Smoking status: Current some day smoker Tobacco type: cigarettes Second hand tobacco smoke exposure: No Alcohol intake: former Substance use: never Substance use type: does not use Last use: today Lack of Transportation: No Lack of Food: Never True Current Housing: I Have Housing Concerned About Future Housing: No Difficulty Paying Gas/Electric Bills: No Difficulty Paying for Meds: No Currently Unemployed:
[2023-02-23] MEDS: SUCRALFATE 1 GM TABLET PO ×3 (11:16→20:19)
[2023-02-23] MEDS: METOPROLOL SUCCINATE EXT REL 25 MG TABCR PO (11:16)
[2023-02-23] MEDS: BENZONATATE 100 MG CAPSULE PO ×2 (11:20→19:35)
[2023-02-23] MEDS: hydrALAZINE HCL 20 MG/ML VIAL 10 MG IV PUSH (16:39)
--- NOTE | 2023-02-23 17:08 | WPDGICN ---
Assessment and Plan Assessment and plan (1) Intractable nausea and vomiting: Code(s): R11.2 - Nausea with vomiting, unspecified Status: Acute Assessment and Plan: Meds that he has been taking at home are not effective and even here he has nausea despite taking a ondansetron. (2) Chronic anticoagulation: Code(s): Z79.01 - care home (current) use of anticoagulants Status: Acute Assessment and Plan: He is on Xarelto at home. He did receive it yesterday. I held today's dose so that we can perform EGD tomorrow. Clopidogrel was also held. (3) Tobacco abuse: Code(s): Z72.0 - Tobacco use Status: Acute Assessment and Plan: He does continue to smoke. He has COPD and apparently history of lung cancer (4) Liver lesion: Code(s): K76.9 - Liver disease, unspecified Status: Acute Assessment and Plan: he began taking chemotherapy a couple weeks ago in [place]. Plan EGD tomorrow morning. The procedure was discussed with the patient. GI Consult Note Consult date/time: 02/23/23 17:08 HPI: Guero Ahmadi is a 67 year old male Who I am asked to see because of intractable nausea vomiting. He was actually admitted to the hospital yesterday because he was not feeling well and was found to be in atrial fibrillation with rapid ventricular rate, his heart rate up in the 160s. He is treated with metoprolol his heart rate has come down. Patient states that he has been treated for a tumor in his liver, possibly metastatic from previous lung cancer and began chemotherapy about 2 or 3 weeks ago. His nausea however precedes that by a couple of months. He denies dysphagia. He denies chronic heartburn. His appetite has been fair. He denies any significant abdominal pain. He does have a history of hepatitis C. he continues to smoke. Review of Systems Review of Systems: All systems reviewed & are unremarkable except as noted in HPI and below PMFSH Past Medical History Medical History Anemia Anxiety Aortic stenosis mild Atrial flutter Back pain BPH (benign prostatic hyperplasia) Bronchitis Cataracts, bilateral Chest pain, musculoskeletal CHF (congestive heart failure) Echo 09/2018: EF of 50% and impaired diastolic relaxation grade 1 Chronic kidney disease COPD (chronic obstructive pulmonary disease) CVA (cerebral vascular accident) Right side effects Dementia Depression DVT (deep venous thrombosis) Emphysema of lung Epistaxis GERD (gastroesophageal reflux disease) Heart attack Pt reports old [place] but I could ot find any documentation in [facility], Care Everywhere, etc. Cardiac cath 2017 showed normal coronary arteries. Hepatitis C History of rectal polyps HLD (hyperlipidemia) HTN (hypertension) Kidney stones Osteoporosis Paroxysmal atrial fibrillation cardioversion x 2 Tuberculosis Surgical History Surgical History History of appendectomy Hx of cardiac catheterization x2 Hx of spinal surgery Family History Family History Father Heart disease Mother Diabetes mellitus Heart disease Hypertension Grandparent Hypertension Social History Social History Social History: Lives alone, sister Felisa Jerome helps with his meds. he has 1 son. The patient used to smoke up to 2 packs of cigarettes a day and cut down to 1. He uses marijuana often. He retired from [employer]. Smoking packs per day: 1 Smoking cigarettes per day: 20.0 Years smoked: 50 Smoking pack-years: 50.00 Smoking status: Current some day smoker Tobacco type: cigarettes Second hand tobacco smoke exposure: No Alcohol intake: former Substance use: never Substance use type: does not use Last use: today Lack of Transpor
[2023-02-23] MEDS: ACETAMINOPHEN 325 MG TABLET 650 MG PO (19:35)
[2023-02-23] MEDS: GABAPENTIN 300 MG CAPSULE 600 MG BY MOUTH (20:19)
[2023-02-24] VITALS (12 sets, daily range): BP systolic 111–155; BP diastolic 82–103; PULSE 70–104; RESP 14–20; TEMP 36.4–37.3; O2SAT 96–98
[2023-02-24] MEDS: ACETAMINOPHEN 325 MG TABLET 650 MG PO (06:23)
[2023-02-24] MEDS: BENZONATATE 100 MG CAPSULE PO ×2 (06:23→11:53)
[2023-02-24] MEDS: SUCRALFATE 1 GM TABLET PO (06:23)
[2023-02-24] MEDS: CHOLECALCIFEROL 1,000 UNITS TABLET 5000 UNITS PO (08:39)
[2023-02-24] MEDS: PANTOPRAZOLE SODIUM IV 40 MG VIAL IV PUSH (08:39)
[2023-02-24] MEDS: METOPROLOL SUCCINATE EXT REL 25 MG TABCR 75 MG PO (08:40)
[2023-02-24] MEDS: LORATADINE 10 MG TABLET PO (08:40)
[2023-02-24] MEDS: ASCORBIC ACID 500 MG TABLET PO (08:41)
[2023-02-24] MEDS: TAMSULOSIN HCL 0.4 MG CAPSULE PO (08:41)
[2023-02-24] MEDS: FUROSEMIDE 20 MG TABLET PO (08:41)
[2023-02-24] MEDS: ATORVASTATIN 20 MG TABLET PO (08:41)
[2023-02-24] MEDS: CLOPIDOGREL BISULFATE 75 MG TABLET PO (08:41)
[2023-02-24] MEDS: DIGOXIN TAB 125 MCG TABLET PO (08:41)
[2023-02-24] MEDS: ESCITALOPRAM OXALATE 10 MG TABLET PO (08:41)
[2023-02-24] MEDS: FERROUS SULFATE 324 MG TABLET PO (08:41)
[2023-02-24] MEDS: busPIRone HCL 10 MG TABLET PO (08:42)
[2023-02-24] MEDS: GABAPENTIN 300 MG CAPSULE BY MOUTH (08:42)
--- NOTE | 2023-02-24 09:22 | PC.NURSE ---
This patient, Guero Ahmadi, was transferred to [facility] on 02/24/23 at 0915. Personal belongings sent with patient. Report given to Lala. Appropriate documentation sent with patient.
--- NOTE | 2023-02-24 12:05 | PC.NURSE ---
This patient, Guero Ahmadi, was received from [place] on 02/24/23 at 0920. Patient oriented to unit policies, room, call light and routines. Patient educated about fall risk and to use call light for help to bathroom the first time. Patient return demonstration on correct button to press for help. Patient verbalizes understanding about procedural wait time and will be informed if we receive any updated information.
--- NOTE | 2023-02-24 13:29 | WPDANESEPPF ---
Anes - Initial Pre Proc Eval Procedure: Operation Date: 02/24/23 14:30 Proposed Procedures p Esophagogastroduodenoscopy - Jeffery Bro MD Date/Time: 02/24/23 13:29 Surgeon: Nathaly Young MD Pre Op Diagnosis: A-Fib w/RVR Patient Data Age: 67 Gender: M Height: 1.73 m Weight: 65 kg Last Vital Signs Temp 36.4 C L 02/24/23 13:07 Pulse 90 02/24/23 13:07 Resp 14 02/24/23 13:07 BP 145/91 H 02/24/23 13:07 Pulse Ox 98 02/24/23 13:07 O2 Del Method Room Air 02/24/23 13:07 Allergies Allergy/AdvReac Type Severity Reaction Status Date / Time albuterol AdvReac Shakiness Verified 11/21/22 09:02 Home Medications Medication Instructions Recorded Confirmed Type atorvastatin 20 mg tablet 20 mg PO DAILY 09/20/19 02/23/23 History cholecalciferol (vitamin D3) 125 5,000 unit PO DAILY 09/20/19 02/23/23 History mcg (5,000 unit) tablet (Vitamin D3) digoxin 125 mcg (0.125 mg) tablet 125 mcg PO DAILY 01/25/21 02/23/23 History diltiazem HCl 120 mg 360 mg PO HS 01/25/21 02/23/23 History capsule,extended release 24 hr loratadine 10 mg tablet 10 mg PO DAILY 12/19/21 02/23/23 History ascorbic acid (vitamin C) 500 mg 1 mg PO DAILY 02/23/23 02/23/23 History tablet benzonatate 100 mg capsule 100 mg PO TID PRN coughing 02/23/23 02/23/23 History buspirone 10 mg tablet 10 mg PO DAILY 02/23/23 02/23/23 History clopidogrel 75 mg tablet 75 mg PO DAILY 02/23/23 02/23/23 History escitalopram oxalate 10 mg tablet 10 mg PO DAILY 02/23/23 02/23/23 History ferrous sulfate 325 mg (65 mg 325 mg PO DAILY 02/23/23 02/23/23 History iron) tablet furosemide 20 mg tablet 20 mg PO DAILY 02/23/23 02/23/23 History gabapentin 300 mg capsule See Rx Instructions .Route .COMPLEX 02/23/23 02/23/23 History metoprolol succinate 50 mg 50 mg PO DAILY 02/23/23 02/23/23 History tablet,extended release 24 hr omeprazole 20 mg capsule,delayed 20 mg PO BID 02/23/23 02/23/23 History release rivaroxaban 15 mg tablet (Xarelto) 15 mg PO DAILY 02/23/23 02/23/23 History sucralfate 1 gram tablet 1 g PO QID 02/23/23 02/23/23 History tamsulosin 0.4 mg capsule 0.4 mg PO DAILY 02/23/23 02/23/23 History Patient hx anesthesia problems: none Family hx anesthesia problems: none Results Review: All pre-operative results and documents have been reviewed as part of the pre-operative evaluation. [facility] Past Medical History Medical History Anemia Anxiety Aortic stenosis mild Atrial flutter Back pain BPH (benign prostatic hyperplasia) Bronchitis Cataracts, bilateral Chest pain, musculoskeletal CHF (congestive heart failure) Echo 09/2018: EF of 50% and impaired diastolic relaxation grade 1 Chronic kidney disease COPD (chronic obstructive pulmonary disease) CVA (cerebral vascular accident) Right side effects Dementia Depression DVT (deep venous thrombosis) Emphysema of lung Epistaxis GERD (gastroesophageal reflux disease) Heart attack Pt reports old [place] but I could ot find any documentation in [facility], Care Everywhere, etc. Cardiac cath 2016 showed normal coronary arteries. Hepatitis C History of rectal polyps HLD (hyperlipidemia) HTN (hypertension) Kidney stones Osteoporosis Paroxysmal atrial fibrillation cardioversion x 2 Tuberculosis Surgical History Surgical History History of appendectomy Hx of cardiac catheterization x2 Hx of spinal surgery Family History Family History Father Heart disease Mother Diabetes mellitus Heart disease Hypertension Grandparent Hypertension Social History Social History Social History: Lives alone, sister Felisa Jerome helps with his meds. he has 1 son. The patient used to smoke up to 2 packs of cigarettes a day and cut down to 1. He uses mar
[2023-02-24] MEDS: LACTATED RINGERS 1,000 ML 150 ML IV CONT ×2 (13:33→14:03)
--- NOTE | 2023-02-24 15:51 | PC.NURSE ---
Returned from GI Lab at 1435. Report received from ZANE Robbins.
--- NOTE | 2023-03-09 16:06 | PM.DS ---
DS: Admitting Diagnosis Discharge Date 02/24/23 Admitting Diagnosis Chest pain DS: Discharge Diagnosis Discharge Diagnosis (1) Intractable nausea and vomiting: Code(s): R11.2 - Nausea with vomiting, unspecified Status: Acute Assessment and Plan: Currently being worked up by his primary care physician, GI consult requested for possible EGD, differential includes gastritis, side effects from liver cancer and radiation treatment (2) Liver lesion: Code(s): K76.9 - Liver disease, unspecified Status: Acute Assessment and Plan: Being treated at [facility] with radiation treatment for liver cancer (3) CHF (congestive heart failure): Qualifiers: Heart failure type: diastolic Heart failure chronicity: chronic Qualified Code(s): I50.32 - Chronic diastolic (congestive) heart failure Code(s): I50.9 - Heart failure, unspecified Status: Chronic Assessment and Plan: Appears euvolemic at this time, continue home medications (4) Chronic kidney disease: Qualifiers: Chronic kidney disease stage: stage 3 (moderate) Qualified Code(s): N18.3 - Chronic kidney disease, stage 3 (moderate) Code(s): N18.9 - Chronic kidney disease, unspecified Status: Chronic Assessment and Plan: Patient has known chronic kidney disease with creatinine fluctuating in the 1.4- 1.7 range between November 2021 and January 2023. Avoid nephrotoxic medication. (5) Atrial fibrillation with rapid ventricular response: Code(s): I48.91 - Unspecified atrial fibrillation Status: Acute Assessment and Plan: Currently weaned up off diltiazem drip, monitor on oral diltiazem and home medications Continue Xarelto for now, hold for EGD Plan DVT prophylaxis with Xarelto--held for EGD GI prophylaxis with PPI Code status full code DS: Summary Hospital Course Hospital Course: 85-year-old male with history of AFib on Xarelto, liver cancer, heart failure currently going through radiation treatment was brought in for general feelings of malaise and weakness. He complained of some chest discomfort as well. GI was consulted for EGD for possible underlying GERD. EGD showed an acute gastric ulcer with several pre-pyloric antral gastric ulcers. Biopsies were taken. Protonix 40 mg twice daily was recommended. Aspirin and NSAIDs were discontinued. There was a noted new liver mass, possibly concerning for known but worsening metastatic cancer. Cardiology was consulted for AFib. They recommended increasing metoprolol. Patient had chronic diastolic heart failure and was euvolemic. Please see above and med rec for details. Patient was discharged in stable condition with close outpatient follow-up. Time Spent with Patient Time attestation: Total time spent providing and/or coordinating discharge services: Exam Narrative: General: No acute distress, alert and oriented per baseline HEENT: Atraumatic, normocephalic, mucous membranes moist CV: Irregularly irregular, S1, S2 Lungs: Clear to auscultation bilaterally, no rales or crackles noted, no wheezes, good air entry Abdomen: Soft, nontender, nondistended Extremities: Normal to inspection Skin: No rashes noted, no lesions or wounds seen Psych: Euthymic, normal affect DS: Data Data Completed and Pending Completed studies during hospitalization: Pending at discharge 02/24/23 14:05 Surgical [PTH] Routine Discharge Plan Discharge Attending physician on discharge: Aleena Bryan Consulting providers: Eri Dinero; Guero Parrish; Brody Dubois; Filippo Greenwood; Diego Adam Discharging Clinician: Aleena Bryan Patient Disposition: Home, Self-Care Activity: as tolerated Diet: as tolerated Discharge Instructions: You have an acute ulcer. You will need to take protonix twice daily and follow up with GI for biopsy results. Avoid
== END 2023-02-24 15:50 | disposition home or self-care (01) ==
LOC: ANHED 23:13 → ANHICU 02-23 06:27 → ANH3MEDSUR 02-24 11:40 → ANHICU 02-27 10:39
PROVIDERS: Internal Medicine Gastroenterology; Admitting Provider Internal Medicine; Emergency Provider Family Medicine; PCP Physician Assistant Medical; Visit Provider Student in an Organized Health Care Education/Training Program
PROC: 0DJ08ZZ Inspection of Upper Intestinal Tract, Via Natural or Artificial Opening Endoscopic (ICD-10-PCS; CPT 43235; principal; 2023-02-24 14:30)
DX: K25.3 Acute gastric ulcer without hemorrhage or perforation (principal); C22.8 Malignant neoplasm of liver, primary, unspecified as to type; I48.91 Unspecified atrial fibrillation; D64.9 Anemia, unspecified; F41.9 Anxiety disorder, unspecified; F32.A Depression, unspecified; K21.9 Gastro-esophageal reflux disease without esophagitis; I13.0 Hypertensive heart and chronic kidney disease with heart failure and stage 1 through stage 4 chronic kidney disease, or unspecified chronic kidney disease; I50.32 Chronic diastolic (congestive) heart failure; N18.9 Chronic kidney disease, unspecified; Z79.01 Long term (current) use of anticoagulants; Z51.0 Encounter for antineoplastic radiation therapy; J44.9 Chronic obstructive pulmonary disease, unspecified; F03.90 Unspecified dementia, unspecified severity, without behavioral disturbance, psychotic disturbance, mood disturbance, and anxiety; E78.5 Hyperlipidemia, unspecified; I45.2 Bifascicular block; R94.31 Abnormal electrocardiogram [ECG] [EKG]; M81.0 Age-related osteoporosis without current pathological fracture; F17.210 Nicotine dependence, cigarettes, uncomplicated; F12.90 Cannabis use, unspecified, uncomplicated; Z86.73 Personal history of transient ischemic attack (TIA), and cerebral infarction without residual deficits; Z86.718 Personal history of other venous thrombosis and embolism; Z86.19 Personal history of other infectious and parasitic diseases; Z86.11 Personal history of tuberculosis; Z79.1 Long term (current) use of non-steroidal anti-inflammatories (NSAID); Z79.899 Other long term (current) drug therapy; Z82.49 Family history of ischemic heart disease and other diseases of the circulatory system
CPT/HCPCS: 43239; 36415; 71045; 74177; 80048; 80053; 81001; 83735; 83880; 84439; 84443; 84484; 85025; 85055; 85610; 88305; 88342; 93005; 96361; 96374; 96375; 96376; 99285; A9270; C9113; G0378; J0360; J0780; J2405; J2704; J7030; J7120; Q9967

== ENCOUNTER 2023-03-12 11:58 | Emergency (ER) | payer MEDICARE, MEDICAID, SELFPAY ==
[2023-03-12] VITALS (16 sets, daily range): BP systolic 121–159; BP diastolic 83–102; PULSE 73–109; RESP 10–25; TEMP 36.3; O2SAT 92–98
--- NOTE | ~2023-03-12 | CT_ITS ---
EXAMINATION: CT abdomen pelvis w con DATE: 03/12/2023 14:23 INDICATION: Right upper quadrant abdominal pain and tenderness to palpation. History of 2 ulcers. TECHNIQUE: Computed tomography (CT) of the abdomen and pelvis was performed with 100 CC Omnipaque 350 intravenous contrast. Automated exposure control and iterative reconstruction technique were employe d. Exam dose: 246.99 mGy-cm total exam DLP. COMPARISON: 02/22/2023 CT abdomen pelvis FINDINGS: Mild dependent right lower lobe atelectasis. The lung bases are clear of infiltrate or cons olidation. Occasional bilateral calcified pulmonary granulomas consistent with old granulomatous dise ase Status post aortic valve replacement. Cardiomegaly. No pericardial or pleural effusion. Again noted is a large left hepatic mass lesion with adjacent surgical clips. There is associated dilatation of the left intrahepatic bile ducts. Since 02/22/2023 there is gallbladder wall thickening/edema which may indicate acute cholecystitis. Co nsider gallbladder ultrasound and radionuclide hepatobiliary scan if clinically appropriate. Normal splenic size. There are calcified splenic granulomas. No pancreatic mass lesion or calcification or ductal dilatation is noted. Normal morphology of the adrenal glands. Prominent scarring of the left upper and mid kidney likely due to chronic pyelonephritis. Several rig ht renal cysts. No urinary tract calculus or hydroureteronephrosis. There is moderate prostate enlarg ement and mild calcification. The urinary bladder appears unremarkable. Small fat-containing right inguinal hernia. Small fat-containing umbilical hernia. There is atherosclerotic calcification but normal caliber of the abdominal aorta and iliac arteries. No intraperitoneal or retroperitoneal or pelvic mass lesion or adenopathy or ascites is noted. Diverticulosis of the colon; no CT evidence of diverticulitis is noted. No bowel obstruction or intra peritoneal free air is detected. Osteopenia. Mild anterior wedge compression fracture deformity of L3. Prominent anterior wedge compression fractu re deformity and vertebroplasty at L2. Chronic prominent anterior wedge burst fracture deformity of L 1. Mild anterior wedge compression fracture deformity of T11 and more prominent anterior wedge compre ssion fracture from T9. IMPRESSION: Gallbladder wall thickening/edema; this is a new finding since 02/22/2023. Consider acute cholecystitis Persistent large hepatic mass lesion Chronic pyelonephritis of the left kidney Small right renal cysts Diverticulosis of the colon Small fat-containing right inguinal hernia Prostate enlargement and calcifications Multiple fracture deformities of the thoracic and lumbar spine Reviewed, dictated and finalized at [facility]. Reviewed, dictated and finalized at [facility]. IMPRESSION: Gallbladder wall thickening/edema; this is a new finding since 01/25. Consider acute cholecystitis Persistent large hepatic mass lesion Chronic pyelonephritis of the left kidney Small right renal cysts Diverticulosis of the colon Small fat-containing right inguinal hernia Prostate enlargement and calcifications Multiple fracture deformities of the thoracic and lumbar spine
--- NOTE | 2023-03-12 12:02 | ECG_ITS ---
Measurements Intervals [place] Rate: 78 P: TN: 0 QRS: 267 QRSD: 158 T: 45 QT: 396 QTc: 452 Interpretive Statements ATRIAL FIBRILLATION MARKED RIGHT AXIS DEVIATION [QRS AXIS > 100] RIGHT BUNDLE BRANCH BLOCK [120+ ms QRS DURATION, UPRIGHT V1, 40+ ms S IN I/aVL/V4/V5/V6] PROBABLE ANTEROSEPTAL MYOCARDIAL INFARCTION , OF INDETERMINATE AGE [35 ms Q WAVE IN V1- V4] ABNORMAL ECG COMPARED TO ECG 02/23/2023 13:48:05 NO SIGNIFICANT CHANGES Electronically Signed On 03-12-2023 12:50:43 CDT by Harvey Worrell M.D.
--- NOTE | 2023-03-12 12:18 | ED.ABDPAIN ---
HPI - Abdominal Pain General Chief Complaint: Abdominal Pain Stated Complaint: RUQ pain History of Present Illness HPI narrative: 67-year-old male with history of atrial fibrillation, CHF, COPD and liver cancer metastasis presented to the emergency department for evaluation of nausea vomiting and right upper quadrant pain. Patient states with the abdominal pain worsens he feels he does have some chest tightness. While the patient was in the emergency department his heart rate had been controlled with a rate in the 80s but his pain worsened and he vomited his heart rate did go into the 150s. Patient does follow-up at [facility] for his cancer treatment. Related Data Home Medications Medication Instructions Recorded Confirmed atorvastatin 20 mg tablet 20 mg PO DAILY 09/20/19 02/23/23 cholecalciferol (vitamin D3) 125 5,000 unit PO DAILY 09/20/19 02/23/23 mcg (5,000 unit) tablet (Vitamin D3) digoxin 125 mcg (0.125 mg) tablet 125 mcg PO DAILY 01/25/21 02/23/23 diltiazem HCl 120 mg 360 mg PO HS 01/25/21 02/23/23 capsule,extended release 24 hr loratadine 10 mg tablet 10 mg PO DAILY 12/19/21 02/23/23 ascorbic acid (vitamin C) 500 mg 1 mg PO DAILY 02/23/23 02/23/23 tablet benzonatate 100 mg capsule 100 mg PO TID PRN coughing 02/23/23 02/23/23 buspirone 10 mg tablet 10 mg PO DAILY 02/23/23 02/23/23 clopidogrel 75 mg tablet 75 mg PO DAILY 02/23/23 02/23/23 escitalopram oxalate 10 mg tablet 10 mg PO DAILY 02/23/23 02/23/23 ferrous sulfate 325 mg (65 mg 325 mg PO DAILY 02/23/23 02/23/23 iron) tablet furosemide 20 mg tablet 20 mg PO DAILY 02/23/23 02/23/23 gabapentin 300 mg capsule See Rx Instructions .Route .COMPLEX 02/23/23 02/23/23 metoprolol succinate 50 mg 50 mg PO DAILY 02/23/23 02/23/23 tablet,extended release 24 hr rivaroxaban 15 mg tablet (Xarelto) 15 mg PO DAILY 02/23/23 02/23/23 sucralfate 1 gram tablet 1 g PO QID 02/23/23 02/23/23 tamsulosin 0.4 mg capsule 0.4 mg PO DAILY 02/23/23 02/23/23 Allergies Allergy/AdvReac Type Severity Reaction Status Date / Time albuterol AdvReac Shakiness Verified 03/12/23 12:12 Review of Systems Review of Systems: All systems reviewed & are unremarkable except as noted in HPI and below PMFSH Past Medical History Medical History Anemia Anxiety Aortic stenosis mild Atrial flutter Back pain BPH (benign prostatic hyperplasia) Bronchitis Cataracts, bilateral Chest pain, musculoskeletal CHF (congestive heart failure) Echo 09/2018: EF of 50% and impaired diastolic relaxation grade 1 Chronic kidney disease COPD (chronic obstructive pulmonary disease) CVA (cerebral vascular accident) Right side effects Dementia Depression DVT (deep venous thrombosis) Emphysema of lung Epistaxis GERD (gastroesophageal reflux disease) Heart attack Pt reports old [place] but I could ot find any documentation in [facility], Care Everywhere, etc. Cardiac cath 2016 showed normal coronary arteries. Hepatitis C History of rectal polyps HLD (hyperlipidemia) HTN (hypertension) Kidney stones Osteoporosis Paroxysmal atrial fibrillation cardioversion x 2 Tuberculosis Surgical History Surgical History History of appendectomy Hx of cardiac catheterization x2 Hx of spinal surgery Family History Family History Father Heart disease Mother Diabetes mellitus Heart disease Hypertension Grandparent Hypertension Social History Social History Social History: Lives alone, sister Felisa Jerome helps with his meds. he has 1 son. The patient used to smoke up to 2 packs of cigarettes a day and cut down to 1. He uses marijuana often. He retired from [employer]. Smoking packs per day: 1 Smoking cigarettes per day: 20.0 Years smoked: 50 Smokin
[2023-03-12] MEDS: HYDROmorphone HCL INJ (*CRX) 1 MG/ML SYR 0.5 MG IV PUSH (12:19)
[2023-03-12] MEDS: ONDANSETRON INJ 4 MG/2 ML VIAL IV PUSH (12:19)
[2023-03-12] MEDS: SODIUM CHLORIDE 0.9% IV 1,000 ML 999 ML IV CONT (12:19)
[2023-03-12 12:24] LABS: Basophils Absolute Auto 0.1 K/mm3 (0.0-0.1); Basophils Percent Auto 0.6 % (0.2-1.2); Eosinophils Percent Auto 0.3 % (0-4.4); Hematocrit 44.3 % (42.0-52.0); Hemoglobin 14.9 g/dL (14.0-18.0); Immature Granulocyte Absolute 0.05 K/mm3 (0.00-0.031); Immature Granulocyte Percent A 0.6 % (0-0.5); Immature Platelet Fraction Pct 7.9 % (0.9-11.2); Lymphocytes Absolute Auto 0.25 K/mm3 (0.9-3.2); Lymphocytes Percent Auto 2.8 % (18.3-44.2); Mean Corpuscular HGB Conc 33.6 g/dl (32-36); Mean Corpuscular Hemoglobin 33.8 pg (26-34); Mean Corpuscular Volume 100.5 fl (80-100); Mean Platelet Volume 11.6 fl (7.4-10.4); Monocytes Absolute Auto 0.4 K/mm3 (0.1-0.6); Monocytes Percent Auto 3.9 % (2.6-8.5); Neutrophils Absolute Auto 8.2 K/mm3 (1.3-6.7); Neutrophils Percent Auto 91.8 % (45.5-73.1); Platelet Count Result 112 k/mm3 (150-375); Red Blood Count 4.41 M/mm3 (4.6-6.20); Red Cell Distribution Width 14.4 % (11.5-14.5); White Blood Count 8.9 K/mm3 (4.5-10.0)
[2023-03-12] MEDS: HYDROmorphone HCL INJ (*CRX) 1 MG/ML SYR IV PUSH (13:15)
[2023-03-12 13:29] LABS: Alanine Aminotransferase 54 U/L (6-50); Alkaline Phosphatase 170 U/L (38-126); Anion Gap 5 mmol/L (8-16); Aspartate Amino Transferase 84 U/L (17-59); Blood Urea Nitrogen 17 mg/dL (9-20); Calcium 8.6 mg/dL (8.4-10.2); Carbon Dioxide 28 mmol/L (22-30); Chloride 104 mmol/L (98-107); Estimated CRCL calculation 49 ml/min; Estimated Glomerular Filt Rate 60; Glucose 101 mg/dL (65-110); Lipase 124 U/L (23-300); Potassium 3.6 mmol/L (3.4-5.0); Sodium 137 mmol/L (137-145)
[2023-03-12 13:41] LABS: Troponin I < 0.012 ng/mL (0.000-0.034)
[2023-03-12] MEDS: PANTOPRAZOLE SODIUM IV 40 MG VIAL IV PUSH (14:02)
--- NOTE | 2023-03-12 15:03 | PC.NURSE ---
awaiting urine sample at this time. patient refusing straight cath. patient aware that he is to provide urine sample as soon as possible.
== END 2023-03-12 15:35 | disposition home or self-care (01) ==
PROVIDERS: Emergency Provider Emergency Medicine; PCP Physician Assistant Medical
DX: R10.11 Right upper quadrant pain (principal); C22.8 Malignant neoplasm of liver, primary, unspecified as to type; B19.20 Unspecified viral hepatitis C without hepatic coma; C79.9 Secondary malignant neoplasm of unspecified site; I13.0 Hypertensive heart and chronic kidney disease with heart failure and stage 1 through stage 4 chronic kidney disease, or unspecified chronic kidney disease; N18.9 Chronic kidney disease, unspecified; I50.9 Heart failure, unspecified; I48.0 Paroxysmal atrial fibrillation; I48.92 Unspecified atrial flutter; I35.0 Nonrheumatic aortic (valve) stenosis; J43.9 Emphysema, unspecified; F03.90 Unspecified dementia, unspecified severity, without behavioral disturbance, psychotic disturbance, mood disturbance, and anxiety; I69.90 Unspecified sequelae of unspecified cerebrovascular disease; N40.0 Benign prostatic hyperplasia without lower urinary tract symptoms; K21.9 Gastro-esophageal reflux disease without esophagitis; M81.0 Age-related osteoporosis without current pathological fracture; F41.9 Anxiety disorder, unspecified; Z86.718 Personal history of other venous thrombosis and embolism; Z87.442 Personal history of urinary calculi; Z87.19 Personal history of other diseases of the digestive system; Z86.11 Personal history of tuberculosis; F17.210 Nicotine dependence, cigarettes, uncomplicated; Z79.01 Long term (current) use of anticoagulants; I45.10 Unspecified right bundle-branch block; R94.31 Abnormal electrocardiogram [ECG] [EKG]; R93.2 Abnormal findings on diagnostic imaging of liver and biliary tract; N11.9 Chronic tubulo-interstitial nephritis, unspecified; N28.1 Cyst of kidney, acquired; K57.90 Diverticulosis of intestine, part unspecified, without perforation or abscess without bleeding; K40.90 Unilateral inguinal hernia, without obstruction or gangrene, not specified as recurrent
CPT/HCPCS: 36415; 74177; 80053; 83690; 84484; 85025; 85055; 93005; 96361; 96374; 96375; 96376; 99284; C9113; J1170; J2405; J7030; Q9967

== ENCOUNTER 2023-05-16 02:57 | Day surgery (SDC) | payer MEDICARE, MEDICAID, SELFPAY ==
[2023-05-10 09:15] VITALS: BMI 21.3
--- NOTE | 2023-05-16 07:46 | WPDANESEPPF ---
Anes - Initial Pre Proc Eval Procedure: Operation Date: 05/16/23 10:00 Proposed Procedures p Esophagogastroduodenoscopy - Jeffery Bro MD Date/Time: 05/16/23 07:46 Surgeon: Jeffery Bro MD Pre Op Diagnosis: gastric ulcer Patient Data Age: 67 Gender: M Height: 1.73 m Weight: 63.6 kg Allergies Allergy/AdvReac Type Severity Reaction Status Date / Time albuterol AdvReac Shakiness Verified 05/16/23 08:33 Home Medications Medication Instructions Recorded Confirmed Type atorvastatin 20 mg tablet 20 mg PO DAILY 09/20/19 05/16/23 History digoxin 125 mcg (0.125 mg) tablet 62.5 mcg PO DAILY 01/25/21 05/16/23 History diltiazem HCl 120 mg 360 mg PO HS 01/25/21 05/16/23 History capsule,extended release 24 hr benzonatate 100 mg capsule 100 mg PO TID PRN coughing 02/23/23 05/16/23 History buspirone 10 mg tablet 20 mg PO DAILY 02/23/23 05/16/23 History clopidogrel 75 mg tablet 75 mg PO DAILY 02/23/23 05/16/23 History escitalopram oxalate 10 mg tablet 10 mg PO DAILY 02/23/23 05/16/23 History furosemide 20 mg tablet 20 mg PO DAILY PRN swelling 02/23/23 05/16/23 History gabapentin 300 mg capsule See Rx Instructions .Route .COMPLEX 02/23/23 05/16/23 History metoprolol succinate 50 mg 50 mg PO DAILY 02/23/23 05/16/23 History tablet,extended release 24 hr rivaroxaban 15 mg tablet (Xarelto) 15 mg PO DAILY 02/23/23 05/16/23 History sucralfate 1 gram tablet 1 g PO QID 02/23/23 05/16/23 History tamsulosin 0.4 mg capsule 0.4 mg PO DAILY 02/23/23 05/16/23 History pantoprazole 40 mg tablet,delayed 40 mg PO BID 1 month #60 tabs 02/24/23 05/16/23 Rx release (Protonix) ondansetron HCl 4 mg tablet 4 mg PO Q8-10H 05/10/23 05/16/23 History Patient hx anesthesia problems: none Family hx anesthesia problems: none Results Review: All pre-operative results and documents have been reviewed as part of the pre-operative evaluation. [facility] Past Medical History Medical History Anemia Anxiety Aortic stenosis mild Atrial flutter Back pain BPH (benign prostatic hyperplasia) Bronchitis Cataracts, bilateral Chest pain, musculoskeletal CHF (congestive heart failure) Echo 09/2018: EF of 50% and impaired diastolic relaxation grade 1 Chronic kidney disease COPD (chronic obstructive pulmonary disease) CVA (cerebral vascular accident) Right side effects Dementia Depression DVT (deep venous thrombosis) Emphysema of lung Epistaxis GERD (gastroesophageal reflux disease) Heart attack Pt reports old [place] but I could ot find any documentation in [facility], Care Everywhere, etc. Cardiac cath 2016 showed normal coronary arteries. Hepatitis C History of rectal polyps HLD (hyperlipidemia) HTN (hypertension) Kidney stones Osteoporosis Paroxysmal atrial fibrillation cardioversion x 2 Tuberculosis Surgical History Surgical History History of appendectomy Hx of cardiac catheterization x2 Hx of spinal surgery Family History Family History Father Heart disease Mother Diabetes mellitus Heart disease Hypertension Grandparent Hypertension Social History Social History Social History: Lives alone, sister Felisa Jerome helps with his meds. he has 1 son. The patient used to smoke up to 2 packs of cigarettes a day and cut down to 1. He uses marijuana often. He retired from [employer]. Smoking packs per day: 1 Smoking cigarettes per day: 20.0 Years smoked: 50 Smoking pack-years: 50.00 Smoking status: Current every day smoker Tobacco type: cigarettes Second hand tobacco smoke exposure: No Alcohol intake: former Substance use: current Substance use type: marijuana Last use: today Lack of Transportation: No Lack of Food: Never True Current Housing: [place]
[2023-05-16 08:25] VITALS: BP 121/71; PULSE 71; RESP 18; TEMP 35.9; O2SAT 98; BMI 20.9
[2023-05-16] MEDS: LACTATED RINGERS 1,000 ML 150 ML IV CONT (08:47)
[2023-05-16] MEDS: GENTAMICIN 80MG/SOD CHL 50 ML 80 MG/50 ML BAG 100 MG IVPB (08:48)
--- NOTE | 2023-05-16 09:11 | PM.HPGS ---
History of Present Illness History of Present Illness Consent: Risks, benefits, and alternatives have been discussed and questions answered. Patient agrees to proceed with procedure. Chief complaint: gastric ulcer Narrative: Guero Ahmadi is a 67 year old male Presents for follow-up EGD. Patient found to have gastric ulcer several months ago. He continues to have poor appetite related to metastatic cancer to his liver. He is presumed to have a lung primary. Patient presents today for follow-up EGD. Patient currently has been maintained on Protonix 40mg p.o. b.i.d.. He does take Plavix and Xarelto. No add recent bleeding has been noted. [facility] Past Medical History Medical History Anemia Anxiety Aortic stenosis mild Atrial flutter Back pain BPH (benign prostatic hyperplasia) Bronchitis Cataracts, bilateral Chest pain, musculoskeletal CHF (congestive heart failure) Echo 09/2018: EF of 50% and impaired diastolic relaxation grade 1 Chronic kidney disease COPD (chronic obstructive pulmonary disease) CVA (cerebral vascular accident) Right side effects Dementia Depression DVT (deep venous thrombosis) Emphysema of lung Epistaxis GERD (gastroesophageal reflux disease) Heart attack Pt reports old [place] but I could ot find any documentation in [facility], Care Everywhere, etc. Cardiac cath 2016 showed normal coronary arteries. Hepatitis C History of rectal polyps HLD (hyperlipidemia) HTN (hypertension) Kidney stones Osteoporosis Paroxysmal atrial fibrillation cardioversion x 2 Tuberculosis Surgical History Surgical History History of appendectomy Hx of cardiac catheterization x2 Hx of spinal surgery Family History Family History Father Heart disease Mother Diabetes mellitus Heart disease Hypertension Grandparent Hypertension Social History Social History Social History: Lives alone, sister Felisa Jerome helps with his meds. he has 1 son. The patient used to smoke up to 2 packs of cigarettes a day and cut down to 1. He uses marijuana often. He retired from [employer]. Smoking packs per day: 1 Smoking cigarettes per day: 20.0 Years smoked: 50 Smoking pack-years: 50.00 Smoking status: Current every day smoker Tobacco type: cigarettes Second hand tobacco smoke exposure: No Alcohol intake: former Substance use: current Substance use type: marijuana Last use: today Lack of Transportation: No Lack of Food: Never True Current Housing: I Have Housing Concerned About Future Housing: No Difficulty Paying Gas/Electric Bills: No Difficulty Paying for Meds: No Currently Unemployed: No Education: High School Diploma/GED Difficulty w/ Childcare or Family Care: No Living arrangements: alone Occupation/Education: retired Gender identity (if verbalized by the patient): Male Spiritual care concerns: No Agree to blood products: Yes Meds Home Medications and Allergies Home Medications Medication Instructions Recorded Confirmed Type atorvastatin 20 mg tablet 20 mg PO DAILY 09/20/19 05/16/23 History digoxin 125 mcg (0.125 mg) tablet 62.5 mcg PO DAILY 01/25/21 05/16/23 History diltiazem HCl 120 mg 360 mg PO HS 01/25/21 05/16/23 History capsule,extended release 24 hr benzonatate 100 mg capsule 100 mg PO TID PRN coughing 02/23/23 05/16/23 History buspirone 10 mg tablet 20 mg PO DAILY 02/23/23 05/16/23 History clopidogrel 75 mg tablet 75 mg PO DAILY 02/23/23 05/16/23 History escitalopram oxalate 10 mg tablet 10 mg PO DAILY 02/23/23 05/16/23 History furosemide 20 mg tablet 20 mg PO DAILY PRN swelling 02/23/23 05/16/23 History gabapentin 300 mg capsule See Rx Instructions .Route .COMPLEX 02/23/23 05/16/23 History metopro
[2023-05-16] MEDS: AMPICILLIN 2 GM/NS 100 ML 2 GM/100 ML BAG IVPB (09:18)
[2023-05-16 10:12] VITALS: BP 142/82; PULSE 62; RESP 24; O2SAT 100
[2023-05-16 10:22] VITALS: BP 144/92; PULSE 66; RESP 17; O2SAT 100
[2023-05-16 10:32] VITALS: BP 144/87; PULSE 63; RESP 24; O2SAT 98
== END 2023-05-16 10:38 | disposition home or self-care (01) ==
PROVIDERS: Visit Provider Internal Medicine Gastroenterology
PROC: 0DJ08ZZ Inspection of Upper Intestinal Tract, Via Natural or Artificial Opening Endoscopic (ICD-10-PCS; CPT 43235; principal; 2023-05-16 10:00)
DX: K29.00 Acute gastritis without bleeding (principal); C78.7 Secondary malignant neoplasm of liver and intrahepatic bile duct; Z79.01 Long term (current) use of anticoagulants; F17.210 Nicotine dependence, cigarettes, uncomplicated; I50.9 Heart failure, unspecified; N18.9 Chronic kidney disease, unspecified; K21.9 Gastro-esophageal reflux disease without esophagitis; Z86.718 Personal history of other venous thrombosis and embolism; E78.5 Hyperlipidemia, unspecified; I13.0 Hypertensive heart and chronic kidney disease with heart failure and stage 1 through stage 4 chronic kidney disease, or unspecified chronic kidney disease
CPT/HCPCS: 43239; 87081; J0290; J1580; J2704; J7120

== ENCOUNTER 2023-06-18 13:12 | Emergency (ER) | payer MEDICARE, MEDICAID, SELFPAY ==
[2023-06-18] VITALS (10 sets, daily range): BP systolic 121–172; BP diastolic 78–118; PULSE 68–98; RESP 15–22; TEMP 36.7; O2SAT 96–100
--- NOTE | ~2023-06-18 | XR_ITS ---
XR chest 1V portable 06/18/2023 13:51 Indication: Shortness of breath. COPD. Hypertension. Procedure: AP portable chest Comparison: Comparison to multiple prior studies sequentially, with oldest reviewed study dated 12/19. Findings: Cardiomegaly. There is a prosthetic aortic valve. There is atherosclerosis of the aorta. Th ere are multiple healed left rib fractures. No focal air space disease, pulmonary edema, pleural effu eliezer or suspected pneumothorax. Impression: 1: No acute cardiopulmonary disease. Reviewed, dictated and finalized at [facility]. Impression: 1: No acute cardiopulmonary disease.
--- NOTE | 2023-06-18 13:15 | ECG_ITS ---
Measurements Intervals [place] Rate: 87 P: NC: 0 QRS: 269 QRSD: 147 T: 0 QT: 375 QTc: 453 Interpretive Statements SINUS RHYTHM FREQUENT ATRIAL PREMATURE COMPLEXES RIGHT AXIS DEVIATION RIGHT BUNDLE BRANCH BLOCK CANNOT RULE OUT SEPTAL INFARCT, AGE INDETERMINATE BASELINE ARTIFACT- I, AVR, AVL, AVF, V3, V6 ABNORMAL ECG COMPARED TO ECG 03/12/2023 12:06:44 NO SIGNIFICANT CHANGES Electronically Signed On 06-22-2023 12:08:23 CDT by Filippo Greenwood D.O.
--- NOTE | 2023-06-18 13:18 | ECG_ITS ---
Measurements Intervals [place] Rate: 77 P: 92 NC: 174 QRS: -89 QRSD: 148 T: 30 QT: 397 QTc: 450 Interpretive Statements SINUS RHYTH ATRIAL COUPLET RIGHT BUNDLE BRANCH BLOCK LEFT ANTERIOR FASCICULAR BLOCK CANNOT RULE OUT SEPTAL INFARCT, AGE INDETERMINATE ABNORMAL ECG COMPARED TO ECG 06/18/2023 13:15:41 SINUS RHYTHM NOW PRESENT LEFT ANTERIOR FASCICULAR BLOCK NOW PRESENT Electronically Signed On 06-18-2023 20:33:27 CDT by Filippo Greenwood D.O.
--- NOTE | 2023-06-18 13:18 | ED.CHESTPAIN ---
HPI - Chest Pain General Chief Complaint: Chest Pain Stated Complaint: DYSPNEA/ CP/ V-TACH Time Seen by Provider: 06/18/23 13:18 History of Present Illness HPI narrative: Patient is a 67-year-old male with history of AFib believes he is on coumadin, COPD here with shortness of breath and palpitations. He has been having shortness of breath and worsening cough with productive sputum over the last 3 days. He denies any known sick contacts and has not had any fever chills. He notes that he woke up this morning he had a significantly worse shortness of breath. He then began having some midsternal chest pain and the ambulance was called. He states that the chest pain and shortness of breath or worse on exertion trying to arrange his home for the ambulance to arrive. When the ambulance arrived they noted that his heart rate was in the 170s and he appeared to be in wide complex tachycardia. They cardioverted him with 70 joules with conversion to sinus tachycardia. They note that he had occasional runs of V-tach and start given amiodarone bolus. Patient notes that symptoms significantly improved but he continues to have some shortness of breath and chest pain at this time. He is unsure if he has any coronary artery stents but does endorse multiple cardiac procedures where they went in through his groin and wrist. No recent travel or surgeries. Related Data Home Medications Medication Instructions Recorded Confirmed atorvastatin 20 mg tablet 20 mg PO DAILY 09/20/19 05/16/23 digoxin 125 mcg (0.125 mg) tablet 62.5 mcg PO DAILY 01/25/21 05/16/23 diltiazem HCl 120 mg 360 mg PO HS 01/25/21 05/16/23 capsule,extended release 24 hr benzonatate 100 mg capsule 100 mg PO TID PRN coughing 02/23/23 05/16/23 buspirone 10 mg tablet 20 mg PO DAILY 02/23/23 05/16/23 clopidogrel 75 mg tablet 75 mg PO DAILY 02/23/23 05/16/23 escitalopram oxalate 10 mg tablet 10 mg PO DAILY 02/23/23 05/16/23 furosemide 20 mg tablet 20 mg PO DAILY PRN swelling 02/23/23 05/16/23 gabapentin 300 mg capsule See Rx Instructions .Route .COMPLEX 02/23/23 05/16/23 metoprolol succinate 50 mg 50 mg PO DAILY 02/23/23 05/16/23 tablet,extended release 24 hr rivaroxaban 15 mg tablet (Xarelto) 15 mg PO DAILY 02/23/23 05/16/23 sucralfate 1 gram tablet 1 g PO QID 02/23/23 05/16/23 tamsulosin 0.4 mg capsule 0.4 mg PO DAILY 02/23/23 05/16/23 ondansetron HCl 4 mg tablet 4 mg PO Q8-10H 05/10/23 05/16/23 Allergies Allergy/AdvReac Type Severity Reaction Status Date / Time albuterol AdvReac Shakiness Verified 06/18/23 13:19 Review of Systems Review of Systems: CONSTITUTIONAL: Denies fever, chills, or sweats. EYES: Denies visual changes, redness, or discharge. ENT: Denies rhinorrhea, congestion, sore throat, or otalgia. CARDIOVASCULAR: chest pain, palpitations, No edema. RESPIRATORY: cough and dyspnea. GASTROINTESTINAL: Denies abdominal pain, nausea, vomiting, or diarrhea. GENITOURINARY: Denies dysuria or hematuria. SKIN: Denies rash or itching. MUSCULOSKELETAL: Denies back pain, joint pain, or myalgia. NEUROLOGIC: Denies headache, numbness, or weakness. PSYCHIATRIC: Denies anxiety or depression. [facility] Past Medical History Medical History Anemia Anxiety Aortic stenosis mild Atrial flutter Back pain BPH (benign prostatic hyperplasia) Bronchitis Cataracts, bilateral Chest pain, musculoskeletal CHF (congestive heart failure) Echo 09/2018: EF of 50% and impaired diastolic relaxation grade 1 Chronic kidney disease COPD (chronic obstructive pulmonary disease) CVA (cerebral vascular accident) Right side effects Dementia Depression DVT (deep venous thrombosis) Emphysema of lung Epistaxis GERD (gastroesophageal reflux disease) Heart attack Pt reports old [place] but I could ot find any documentation in [facility], Care Everywhere, etc. Cardiac cath 2016 showed normal coronary arteries. Hepatitis C History of rectal polyps HLD (hyp
[2023-06-18] MEDS: ASPIRIN 81 MG CHEWABLE TABLET 324 MG PO (13:34)
[2023-06-18] MEDS: ONDANSETRON INJ 4 MG/2 ML VIAL IV PUSH (13:38)
[2023-06-18] MEDS: MORPHINE SULFATE (*CRX) 4 MG/ML INJ IV PUSH ×2 (13:38→14:39)
[2023-06-18 13:40] LABS: Basophils Absolute Auto 0.1 K/mm3 (0.0-0.1); Basophils Percent Auto 0.8 % (0.2-1.2); Eosinophils Absolute Auto 0.1 K/mm3 (0-0.3); Eosinophils Percent Auto 0.7 % (0-4.4); Hematocrit 38.4 % (42.0-52.0); Hemoglobin 12.6 g/dL (14.0-18.0); Immature Granulocyte Absolute 0.05 K/mm3 (0.00-0.031); Immature Granulocyte Percent A 0.7 % (0-0.5); Lymphocytes Absolute Auto 0.49 K/mm3 (0.9-3.2); Lymphocytes Percent Auto 6.6 % (18.3-44.2); Mean Corpuscular HGB Conc 32.8 g/dl (32-36); Mean Corpuscular Hemoglobin 32.1 pg (26-34); Mean Corpuscular Volume 97.7 fl (80-100); Mean Platelet Volume 10.5 fl (7.4-10.4); Monocytes Absolute Auto 0.7 K/mm3 (0.1-0.6); Monocytes Percent Auto 9.2 % (2.6-8.5); Neutrophils Absolute Auto 6.1 K/mm3 (1.3-6.7); Platelet Count Result 173 k/mm3 (150-375); Red Blood Count 3.93 M/mm3 (4.6-6.20); Red Cell Distribution Width 14.6 % (11.5-14.5); White Blood Count 7.4 K/mm3 (4.5-10.0)
[2023-06-18] MEDS: AMIODARONE 360 MG/D5W 200 ML 360 MG/200 ML BAG 33.33 MG IV CONT (13:47)
[2023-06-18 13:51] LABS: INR 1.5; Prothrombin Time 19.5 Seconds (11.1-14.7)
[2023-06-18 13:52] LABS: Partial Thromboplastin Time 41.9 SECONDS (22.3-36.8)
[2023-06-18 14:02] LABS: NT Pro B Type Natriuretic Pept 7230 pg/mL (19.9-100); Troponin I 0.013 ng/mL (0.000-0.034)
[2023-06-18] MEDS: MAGNESIUM SULF 2 GM/WATER 50ML 2 GM/50 ML BAG IVPB (14:02)
[2023-06-18 14:17] LABS: Alanine Aminotransferase 31 U/L (6-50); Albumin Level 4.1 g/dL (3.5-5.1); Alkaline Phosphatase 474 U/L (38-126); Anion Gap 10 mmol/L (8-16); Aspartate Amino Transferase 41 U/L (17-59); Blood Urea Nitrogen 20 mg/dL (9-20); CRP 4.6 mg/dL (<1.0); Carbon Dioxide 20 mmol/L (22-30); Chloride 105 mmol/L (98-107); Estimated Glomerular Filt Rate 50; Glucose 135 mg/dL (65-110); Lipase 63 U/L (23-300); Magnesium 1.6 mg/dL (1.6-2.3); Potassium 3.7 mmol/L (3.4-5.0); Sodium 135 mmol/L (137-145)
== END 2023-06-18 16:13 | disposition left against medical advice (07) ==
PROVIDERS: Emergency Provider Student in an Organized Health Care Education/Training Program
DX: R00.0 Tachycardia, unspecified (principal); J44.1 Chronic obstructive pulmonary disease with (acute) exacerbation; R07.9 Chest pain, unspecified; R94.31 Abnormal electrocardiogram [ECG] [EKG]; I48.91 Unspecified atrial fibrillation; Z79.01 Long term (current) use of anticoagulants; D64.9 Anemia, unspecified; F41.9 Anxiety disorder, unspecified; F03.90 Unspecified dementia, unspecified severity, without behavioral disturbance, psychotic disturbance, mood disturbance, and anxiety; F32.A Depression, unspecified; K21.9 Gastro-esophageal reflux disease without esophagitis; I13.0 Hypertensive heart and chronic kidney disease with heart failure and stage 1 through stage 4 chronic kidney disease, or unspecified chronic kidney disease; N18.9 Chronic kidney disease, unspecified; I50.9 Heart failure, unspecified
CPT/HCPCS: 36415; 71045; 80053; 83690; 83735; 83880; 84484; 85025; 85610; 85730; 86140; 93005; 96365; 96366; 96367; 96375; 96376; 99284; A9270; J0282; J2270; J2405; J3475

== ENCOUNTER 2024-01-18 09:47 | Emergency (ER) | payer MEDICARE, MEDICAID, SELFPAY ==
--- NOTE | ~2024-01-18 | CT_ITS ---
EXAMINATION: CT abdomen pelvis w con DATE: 01/18/2024 12:38 INDICATION: Right upper quadrant abdominal pain TECHNIQUE: Computed tomography (CT) of the abdomen and pelvis was performed with 100 mL Omnipaque-350 intravenous contrast. Automated exposure control and iterative reconstruction technique were employe d. The dose-length product was 219.43 mGy-cm. COMPARISON: 03/12/2023 FINDINGS: Couple small calcified nodules at the left lung base along with a few splenic calcific lesions consis tent with old granulomatous disease. Mild dependent atelectasis in the right lower lobe. Heart size i s normal. Postoperative change of prior aortic valve repair. Dual lead pacemaker seen with lead tips at the right atrium and right ventricle. There is been mild interval decrease in size of a previously 6.9 x 6.4 x 5.9 cm heterogeneously enhancing mass arising from segment IVb of the liver which curren tly measures 6.6 x 5.4 x 5.7 cm. There are a few surgical clips along the periphery of the mass. Ther e also appear to be likely embolization coils along the cephalad and caudal aspect of the head of the pancreas potentially for occlusion of the superior and inferior gastroduodenal arteries. Again seen is mild intrahepatic biliary ductal dilation in the lateral segments of the left hepatic lobe. Pancre as, bilateral adrenal glands are normal. There are few subcentimeter cyst in the right kidney. Modera te atrophy with prominent cortical scarring at the mid and upper pole of the left kidney. There are f ew sigmoid diverticula without adjacent 1 stranding to suggest diverticulitis. Small bowel and append ix are normal. Bladder is normal. Small fat-containing right inguinal hernia. No free intraperitoneal gas or fluid. No pathologically enlarged abdominal or pelvic lymphadenopathy. Chronic L1 and L2 comp ression fractures, the latter with change of prior vertebroplasty. There is an additional L3 compress ion fracture which appears chronic but which is new since the prior study. IMPRESSION: 1. Mild interval decrease in size of a still 6.6 x 5.4 x 5.7 cm nonspecific hepatic mass with likely secondary mild intrahepatic biliary ductal dilation in the lateral segment of the left hepatic lobe. Per the clinical record the mass is reportedly secondary to metastatic disease but correlate with pre vious clinical history. 2. No acute intra-abdominal/pelvic process. 3. Chronic moderate atrophy and cortical scarring at the mid and upper pole of the left kidney. 4. Chronic appearing L1-L3 compression fractures. L3 is new since the prior study. Reviewed, dictated and finalized at location A. IMPRESSION: 1. Mild interval decrease in size of a still 6.6 x 5.4 x 5.7 cm nonspecific hep atic mass with likely secondary mild intrahepatic biliary ductal dilation in th e lateral segment of the left hepatic lobe. Per the clinical record the mass is reportedly secondary to metastatic disease but correlate with previous clinica l history. 2. No acute intra-abdominal/pelvic process. 3. Chronic moderate atrophy and cortical scarring at the mid and upper pole of the left kidney. 4. Chronic appearing L1-L3 compression fractures. L3 is new since the prior denis dy.
[2024-01-18 09:58] VITALS: BP 130/86; PULSE 80; RESP 16; TEMP 36.3; O2SAT 98
[2024-01-18 10:03] VITALS: BP 130/86; PULSE 80; RESP 19; O2SAT 99
[2024-01-18 10:35] VITALS: BP 121/82; PULSE 80; RESP 19; TEMP 36.4; O2SAT 98
[2024-01-18 11:01] VITALS: BP 139/88; PULSE 80; RESP 12; O2SAT 97
[2024-01-18 11:28] LABS: Basophils Absolute Auto 0.1 K/mm3 (0.0-0.1); Eosinophils Absolute Auto 0.2 K/mm3 (0-0.3); Eosinophils Percent Auto 3.3 % (0-4.4); Hematocrit 41.1 % (42.0-52.0); Immature Granulocyte Absolute 0.01 K/mm3 (0.00-0.031); Immature Granulocyte Percent A 0.2 % (0-0.5); Lymphocytes Percent Auto 17.8 % (18.3-44.2); Mean Corpuscular HGB Conc 31.6 g/dl (32-36); Mean Corpuscular Hemoglobin 31.9 pg (26-34); Mean Platelet Volume 10.9 fl (7.4-10.4); Monocytes Absolute Auto 0.3 K/mm3 (0.1-0.6); Monocytes Percent Auto 6.4 % (2.6-8.5); Neutrophils Absolute Auto 3.2 K/mm3 (1.3-6.7); Neutrophils Percent Auto 70.3 % (45.5-73.1); Platelet Count Result 146 k/mm3 (150-375); Red Blood Count 4.07 M/mm3 (4.6-6.20); Red Cell Distribution Width 14.2 % (11.5-14.5); White Blood Count 4.5 K/mm3 (4.5-10.0)
[2024-01-18 11:40] LABS: Alanine Aminotransferase 13 U/L (6-50); Albumin Level 4.3 g/dL (3.5-5.1); Alkaline Phosphatase 132 U/L (38-126); Anion Gap 6 mmol/L (4-12); Aspartate Amino Transferase 23 U/L (17-59); Bilirubin,Total 0.8 mg/dL (0.2-1.3); Blood Urea Nitrogen 22 mg/dL (9-20); Calcium 9.4 mg/dL (8.4-10.2); Carbon Dioxide 24 mmol/L (22-30); Chloride 106 mmol/L (98-107); Estimated CRCL calculation 35 ml/min; Estimated Glomerular Filt Rate 38; Glucose 86 mg/dL (65-110); Lipase 49 U/L (23-300); Potassium 3.6 mmol/L (3.4-5.0); Sodium 136 mmol/L (137-145)
[2024-01-18 11:41] LABS: Lactic Acid Reflex 1.3 mmol/L (0.7-2.0)
--- NOTE | 2024-01-18 11:41 | ED.ABDPAIN ---
HPI - Abdominal Pain General Chief Complaint: Abdominal Pain Stated Complaint: ulcer Time Seen by Provider: 01/18/24 11:17 Source: patient and family (Sister) Mode of arrival: ambulatory Limitations: no limitations History of Present Illness HPI narrative: 68-year-old male with past medical history liver cancer undergoing treatment through [facility] presents with right upper quadrant abdominal pain for the past month. He complains nausea. He had been having bouts emesis though has not vomited in the past 24 hours. He states he is concerned that he has an ulcer does not know if he carries this as an official diagnosis. 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 He believes this was between 1 and 2 years ago. Patient has undergone 18 of 25 radiation treatments. Treatments were stopped after that and there has been 50% reduction in tumor size by report. He had been scheduled for this morning to have lowering access with placement of beads to the liver but was feeling too unwell yesterday and the day before so had pre-emptively cancelled this appointment. He does state he actually feels a bit better today than he had but had already cancelled that appointment in anticipation of getting checked out. His LBM was loose but he attributes this to having taken laxatives prior to having it. No bloody stool. PCP (Radha), [facility] team, and his home health care nurse / [place] had all advised that he come to the ED; he / sister state they thought he could get a repeat EGD performed if he came to the ED. Related Data Home Medications Medication Instructions Recorded Confirmed atorvastatin 20 mg tablet 20 mg PO DAILY 09/20/19 05/16/23 digoxin 125 mcg (0.125 mg) tablet 62.5 mcg PO DAILY 01/25/21 05/16/23 diltiazem HCl 120 mg 360 mg PO HS 01/25/21 05/16/23 capsule,extended release 24 hr benzonatate 100 mg capsule 100 mg PO TID PRN coughing 02/23/23 05/16/23 buspirone 10 mg tablet 20 mg PO DAILY 02/23/23 05/16/23 clopidogrel 75 mg tablet 75 mg PO DAILY 02/23/23 05/16/23 escitalopram oxalate 10 mg tablet 10 mg PO DAILY 02/23/23 05/16/23 furosemide 20 mg tablet 20 mg PO DAILY PRN swelling 02/23/23 05/16/23 metoprolol succinate 50 mg 50 mg PO DAILY 02/23/23 05/16/23 tablet,extended release 24 hr rivaroxaban 15 mg tablet (Xarelto) 15 mg PO DAILY 02/23/23 05/16/23 sucralfate 1 gram tablet 1 g PO QID 02/23/23 05/16/23 tamsulosin 0.4 mg capsule 0.4 mg PO DAILY 02/23/23 05/16/23 ondansetron HCl 4 mg tablet 4 mg PO Q8-10H 05/10/23 05/16/23 gabapentin 300 mg capsule See Rx Instructions .Route .COMPLEX 07/11/23 pantoprazole 40 mg tablet,delayed 40 mg PO DAILY 07/11/23 release (Protonix) Allergies Allergy/AdvReac Type Severity Reaction Status Date / Time albuterol AdvReac Shakiness Verified 07/11/23 09:36 [facility] Past Medical History Medical History (Updated 01/19/24 @ 06:05 by Marguerite Garcia MD) Anemia Anxiety Aortic stenosis mild Atrial flutter Back pain BPH (benign prostatic hyperplasia) Bronchitis Cataracts, bilateral Chest pain, musculoskeletal CHF (congestive heart failure) Echo 09/2018: EF of 50% and impaired diastolic relaxation grade 1 Chronic kidney disease COPD (chronic obstructive pulmonary disease) CVA (cerebral vascular accident) Right side effects Dementia Depression DVT (deep venous thrombosis) Emphysema of lung Epistaxis GERD (gastroesophageal reflux disease) Heart attack Pt reports old [place] but I could ot find any documentation in [facility], Care Everywhere, etc. Cardiac cath 2016 showed normal coronary arteries. Hepatitis C History of rectal polyps HLD (hyperlipidemia) HTN (hypertension) Kidney stones Liver cancer Osteoporosis Paroxysmal atrial fibrillation cardioversion x 2 Tuberculosis Surgical History Surgical History (Updated 01/19/24 @ 06:08 by Marguerite Garcia MD) History of appendectomy History of esophagogastroduodenoscopy (EGD) Dr. Bro Hx of cardiac catheteriza
[2024-01-18 12:02] VITALS: BP 142/98; PULSE 80; RESP 18; TEMP 36.4; O2SAT 100
[2024-01-18] MEDS: MORPHINE SULFATE (*CRX) 4 MG/ML INJ IV PUSH (12:05)
[2024-01-18] MEDS: ONDANSETRON INJ 4 MG/2 ML VIAL IV PUSH (12:05)
[2024-01-18] MEDS: SODIUM CHLORIDE 0.9% IV 1,000 ML 999 ML IV CONT (12:07)
[2024-01-18 13:00] VITALS: BP 140/96; PULSE 80; RESP 19; O2SAT 100
[2024-01-18 13:04] LABS: Appearance Urine Clear (Clear); Bacteria Urine None Seen /hpf; Bilirubin Urine Negative (Negative); Blood Urine Negative (Negative); Color Urine Yellow (Yellow); Glucose Urine UA Negative (Negative); Hyaline Casts Urine Present /lpf; Ketones Urine Trace mg/dL (Negative); Leukocyte Esterase Ur Negative LEU/UL (Negative); Need Manual Microscopic Reviewed; Nitrate Urine Negative (Negative); Protein Urine 2+ mg/dL (Negative); RBC Urine 0-2 /hpf (0-2); Specific Grav Ur 1.022 (1.001-1.035); Squamous Epithelial Cell Urine None Seen /hpf (Few); WBC Urine 0-5 /hpf (0-3); pH Urine 5.5 (5.0-9.0)
[2024-01-18 13:07] LABS: Add Urine Microscopic? YES
[2024-01-18 13:21] LABS: Influenza A QL RT-PCR Negative (Negative); Influenza B QL RT-PCR Negative (Negative); SARS-CoV-2 RNA PCR Negative (Negative)
--- NOTE | 2024-01-18 13:26 | PC.NURSE ---
1326-WHEN ASKED TO PROVIDE PAIN STATUS, PATIENT STATES I LIVE WITH CHRONIC PAIN .
[2024-01-18] MEDS: PANTOPRAZOLE SODIUM IV 40 MG VIAL IV PUSH (13:36)
== END 2024-01-18 13:48 | disposition home or self-care (01) ==
PROVIDERS: Emergency Provider Student in an Organized Health Care Education/Training Program
DX: K25.9 Gastric ulcer, unspecified as acute or chronic, without hemorrhage or perforation (principal); D53.9 Nutritional anemia, unspecified; D69.6 Thrombocytopenia, unspecified; M48.56XA Collapsed vertebra, not elsewhere classified, lumbar region, initial encounter for fracture; F03.90 Unspecified dementia, unspecified severity, without behavioral disturbance, psychotic disturbance, mood disturbance, and anxiety; C22.8 Malignant neoplasm of liver, primary, unspecified as to type; I35.0 Nonrheumatic aortic (valve) stenosis; I48.92 Unspecified atrial flutter; I50.9 Heart failure, unspecified; I13.0 Hypertensive heart and chronic kidney disease with heart failure and stage 1 through stage 4 chronic kidney disease, or unspecified chronic kidney disease; N18.9 Chronic kidney disease, unspecified; J43.9 Emphysema, unspecified; E78.5 Hyperlipidemia, unspecified; I69.90 Unspecified sequelae of unspecified cerebrovascular disease; N40.0 Benign prostatic hyperplasia without lower urinary tract symptoms; M81.0 Age-related osteoporosis without current pathological fracture; F32.A Depression, unspecified; F41.9 Anxiety disorder, unspecified; F17.210 Nicotine dependence, cigarettes, uncomplicated; Z87.19 Personal history of other diseases of the digestive system; Z86.718 Personal history of other venous thrombosis and embolism; Z86.11 Personal history of tuberculosis; Z79.01 Long term (current) use of anticoagulants
CPT/HCPCS: 36415; 74177; 80053; 81001; 83605; 83690; 85025; 87636; 96361; 96374; 96375; 99284; C9113; J2270; J2405; J7030; Q9967

== ENCOUNTER 2024-05-24 12:52 | Outpatient (CLI) | payer MEDICARE, MEDICAID, SELFPAY ==
[2024-05-24 13:52] LABS: Hematocrit 38.1 % (42.0-52.0); Hemoglobin 12.3 g/dL (14.0-18.0); Mean Corpuscular HGB Conc 32.3 g/dl (32-36); Mean Corpuscular Volume 102.1 fl (80-100); Mean Platelet Volume 10.9 fl (7.4-10.4); Platelet Count Result 161 k/mm3 (150-375); Red Blood Count 3.73 M/mm3 (4.6-6.20); Red Cell Distribution Width 16.3 % (11.5-14.5); White Blood Count 6.4 K/mm3 (4.5-10.0)
[2024-05-24 14:06] LABS: Alanine Aminotransferase 35 U/L (6-50); Albumin Level 3.9 g/dL (3.5-5.1); Alkaline Phosphatase 714 U/L (38-126); Amylase 99 U/L (30-110); Anion Gap 13 mmol/L (4-12); Aspartate Amino Transferase 49 U/L (17-59); Bilirubin,Total 2.5 mg/dL (0.2-1.3); Blood Urea Nitrogen 22 mg/dL (9-20); Calcium 8.8 mg/dL (8.4-10.2); Carbon Dioxide 24 mmol/L (22-30); Chloride 99 mmol/L (98-107); Estimated Glomerular Filt Rate 43; Glucose 97 mg/dL (65-110); Lipase 73 U/L (23-300); Potassium 3.3 mmol/L (3.4-5.0); Sodium 136 mmol/L (137-145)
== END 2024-05-24 12:53 | disposition home or self-care (01) ==
PROVIDERS: Visit Provider Nurse Practitioner
DX: C22.9 Malignant neoplasm of liver, not specified as primary or secondary (principal); R10.13 Epigastric pain; R63.4 Abnormal weight loss; J44.9 Chronic obstructive pulmonary disease, unspecified; R68.81 Early satiety; R11.2 Nausea with vomiting, unspecified
CPT/HCPCS: 36415; 80048; 80076; 82150; 83690; 85027

== ENCOUNTER 2024-06-07 08:30 | Outpatient (CLI) | payer MEDICARE, MEDICAID, SELFPAY ==
--- NOTE | ~2024-06-07 | CT_ITS ---
EXAMINATION: CTA abdomen pelvis DATE: 06/07/2024 09:17 INDICATION: Liver cancer. Nausea and vomiting. Postprandial pain. TECHNIQUE: Computed tomographic angiography (CTA) of the abdomen and pelvis was performed with 100 mL Omnipaque-350 intravenous contrast. Automated exposure control and iterative reconstruction techniqu e were employed. The dose-length product was 260.00 mGy-cm. Maximum intensity projection 3D-reconstru ctions of the aorta and other arteries were constructed by the technologist on a separate workstation . COMPARISON: CT abdomen and pelvis 01/18/2024 FINDINGS: The visualized portions of the lung bases demonstrate minimal atelectasis. Calcified bilate ral lung nodules are consistent with old granulomatous disease. No pleural effusion. There is left at rial enlargement heart. There are changes of aortic valve replacement. There are pacer wires in right atrium, right ventricle, and coronary sinus. No pericardial effusion. There is 8.3 x 5.9 cm mass in the liver involving the hilum and left hepatic lobe. The gallbladder is distended, which may be secon chelo to fasting. Calcifications in the spleen are consistent with old granulomatous disease. The panc reas and adrenal glands are normal. There is mild atrophy of right kidney and moderate atrophy of lef t kidney. There are cysts in right kidney measuring up to 13 mm. There is a right inguinal hernia con taining fat. There are no dilated loops of bowel. The appendix is normal. There is mild gastrohepatic and periportal lymphadenopathy. A gastrohepatic node measures 22 x 12 mm. There is calcified atheros clerosis of the aorta and many of the other arteries. There is mild stenosis of celiac axis, superior mesenteric artery, and left renal artery. There is no significant stenosis of right renal artery or inferior mesenteric artery. There are embolization coils at the hilum of left kidney. There are embol ization coils in gastroduodenal artery. There chronic fractures of L1, L2, and L3 vertebral bodies wi th changes of vertebroplasty at L2. IMPRESSION: 1. No significant arterial occlusive disease. 2. 8.3 x 5.9 cm liver mass that measured 6.6 x 6.6 cm on 01/18/2024, consistent with malignancy. 3. Stable mild gastrohepatic and periportal lymphadenopathy. Reviewed, dictated and finalized at location A.
== END 2024-06-07 08:31 | disposition home or self-care (01) ==
PROVIDERS: PCP Family Medicine Sports Medicine; Visit Provider Nurse Practitioner
DX: C22.9 Malignant neoplasm of liver, not specified as primary or secondary (principal); R10.13 Epigastric pain; R11.2 Nausea with vomiting, unspecified; R63.4 Abnormal weight loss; R68.81 Early satiety
CPT/HCPCS: 74174; Q9967

== ENCOUNTER 2024-06-26 00:43 | Day surgery (SDC) | payer MEDICARE, MEDICAID, SELFPAY ==
[2024-06-18 16:15] VITALS: BMI 19.8
--- NOTE | 2024-06-21 08:13 | SUR.PREOP ---
Still waiting to receive clearance for patient to hold his xarelto for his procedure on 06/26/24. His last dose would have to be sun. 06/23/24. I reached out to Dr. James office and let them know we sent 2 faxes for this clearance and need it by today for his procedure to remain scheduled for 06/26. Olya, in Dr. Kay's office, sent back a message to the nurse and will get back with me.
--- NOTE | 2024-06-24 08:19 | SUR.PREOP ---
Notified patient that he should hold his xarelto starting today 06/24 and hold this medication until Dr. Franklin gives instructions to restart after the procedure. Verified arrival time, date, NPO status and procedure time with patient. All questions were answered at this time.
[2024-06-26 12:55] VITALS: BP 119/27; PULSE 70; RESP 18; TEMP 36.2; O2SAT 100; BMI 20.5
[2024-06-26] MEDS: LACTATED RINGERS 1,000 ML 150 ML IV CONT (13:29)
--- NOTE | 2024-06-26 13:30 | WPDANESEPPF ---
Anes - Initial Pre Proc Eval Procedure: Operation Date: 06/26/24 14:00 Proposed Procedures p Esophagogastroduodenoscopy - Ulices Vargas MD Date/Time: 06/26/24 13:30 Surgeon: Ulices Vargas MD Pre Op Diagnosis: nausea w/ vomiting Patient Data Age: 69 Gender: M Height: 1.73 m Weight: 61.1 kg Last Vital Signs Temp 36.2 C L 06/26/24 12:55 Pulse 70 06/26/24 12:55 Resp 18 06/26/24 12:55 BP 119/27 L 06/26/24 12:55 Pulse Ox 100 06/26/24 12:55 O2 Del Method Room Air 06/26/24 12:55 Allergies Allergy/AdvReac Type Severity Reaction Status Date / Time nicotine Allergy Intermediate Nightmare Verified 06/26/24 13:00 albuterol AdvReac Shakiness Verified 06/26/24 13:00 Home Medications Medication Instructions Recorded Confirmed Type atorvastatin 20 mg tablet 20 mg PO DAILY 09/20/19 06/18/24 History metoprolol succinate 50 mg 50 mg PO DAILY 02/23/23 06/26/24 History tablet,extended release 24 hr rivaroxaban 15 mg tablet (Xarelto) 15 mg PO DAILY 02/23/23 06/26/24 History tamsulosin 0.4 mg capsule 0.4 mg PO DAILY 02/23/23 06/18/24 History ondansetron 4 mg disintegrating 4 mg PO Q8H PRN nausea and 01/18/24 06/18/24 Rx tablet vomiting #7 tabs lansoprazole 30 mg capsule,delayed 30 mg PO BID 05/24/24 06/26/24 History release metoclopramide HCl 5 mg tablet See Rx Instructions .Route 06/03/24 06/26/24 Rx .COMPLEX #30 tabs aspirin 81 mg tablet,delayed 81 mg PO DAILY 06/18/24 06/18/24 History release lubiprostone 24 mcg capsule 48 mcg PO BIDWMEAL 06/18/24 06/18/24 History mirtazapine 15 mg tablet 15 mg PO HS 06/18/24 06/18/24 History oxycodone 10 mg tablet 10 mg PO TID PRN Pain 06/18/24 06/26/24 History Patient hx anesthesia problems: none Family hx anesthesia problems: none Results Review: All pre-operative results and documents have been reviewed as part of the pre-operative evaluation. [facility] Past Medical History Medical History Anemia Anxiety Aortic stenosis mild Atrial flutter Back pain BPH (benign prostatic hyperplasia) Bronchitis Cataracts, bilateral Chest pain, musculoskeletal CHF (congestive heart failure) Echo 09/2018: EF of 50% and impaired diastolic relaxation grade 1 Chronic kidney disease COPD (chronic obstructive pulmonary disease) CVA (cerebral vascular accident) Right side effects Dementia Depression DVT (deep venous thrombosis) Emphysema of lung Epistaxis GERD (gastroesophageal reflux disease) Heart attack Pt reports old [place] but I could ot find any documentation in [facility], Care Everywhere, etc. Cardiac cath 2016 showed normal coronary arteries. Hepatitis C History of rectal polyps HLD (hyperlipidemia) HTN (hypertension) Kidney stones Liver cancer Osteoporosis Paroxysmal atrial fibrillation cardioversion x 2 Tuberculosis Surgical History Surgical History History of appendectomy History of esophagogastroduodenoscopy (EGD) Dr. Bro Hx of cardiac catheterization x2 Hx of spinal surgery Family History Family History Father Heart disease Mother Diabetes mellitus Heart disease Hypertension Grandparent Hypertension Social History Social History Social History: Lives alone, sister Felisa Jerome helps with his meds. he has 1 son. The patient used to smoke up to 2 packs of cigarettes a day and cut down to 1. He uses marijuana often. He retired from [employer]. Smoking packs per day: 1 Smoking cigarettes per day: 20.0 Years smoked: 45 Smoking pack-years: 45.00 Smoking status: Current every day smoker Tobacco type: cigarettes Second hand tobacco smoke exposure: No Alcohol intake: current Substance use: current Substance use type: marijuana Other substance
--- NOTE | 2024-06-26 13:34 | SUR.PREOP ---
Patient has hx bovine tavr, said patient does not need a pre-op antibiotic
--- NOTE | 2024-06-26 13:38 | PM.HPGS ---
History of Present Illness History of Present Illness Consent: Risks, benefits, and alternatives have been discussed and questions answered. Patient agrees to proceed with procedure. Chief complaint: nausea w/ vomiting Narrative: Guero Ahmadi is a 69 year old male here for egd, h/o nausea and vomiting along with epigastric abdominal pain. He has h/o liver cancer and follows with Oncology at another institution. He also has a history of gastric ulcer. Using ppi bid Review of Systems Review of Systems: All systems reviewed & are unremarkable except as noted in HPI and below PMFSH Past Medical History Medical History Anemia Anxiety Aortic stenosis mild Atrial flutter Back pain BPH (benign prostatic hyperplasia) Bronchitis Cataracts, bilateral Chest pain, musculoskeletal CHF (congestive heart failure) Echo 09/2018: EF of 50% and impaired diastolic relaxation grade 1 Chronic kidney disease COPD (chronic obstructive pulmonary disease) CVA (cerebral vascular accident) Right side effects Dementia Depression DVT (deep venous thrombosis) Emphysema of lung Epistaxis GERD (gastroesophageal reflux disease) Heart attack Pt reports old [place] but I could ot find any documentation in [facility], Care Everywhere, etc. Cardiac cath 2017 showed normal coronary arteries. Hepatitis C History of rectal polyps HLD (hyperlipidemia) HTN (hypertension) Kidney stones Liver cancer Osteoporosis Paroxysmal atrial fibrillation cardioversion x 2 Tuberculosis Surgical History Surgical History History of appendectomy History of esophagogastroduodenoscopy (EGD) Dr. Bro Hx of cardiac catheterization x2 Hx of spinal surgery Family History Family History Father Heart disease Mother Diabetes mellitus Heart disease Hypertension Grandparent Hypertension Social History Social History Social History: Lives alone, sister Felisa Jerome helps with his meds. he has 1 son. The patient used to smoke up to 2 packs of cigarettes a day and cut down to 1. He uses marijuana often. He retired from [employer]. Smoking packs per day: 1 Smoking cigarettes per day: 20.0 Years smoked: 45 Smoking pack-years: 45.00 Smoking status: Current every day smoker Tobacco type: cigarettes Second hand tobacco smoke exposure: No Alcohol intake: current Substance use: current Substance use type: marijuana Other substance usage details: OCC. Last use: today Lack of Transportation: No Lack of Food: Never True Current Housing: I Have Housing Concerned About Future Housing: No Difficulty Paying Gas/Electric Bills: No Difficulty Paying for Meds: No Currently Unemployed: No Education: High School Diploma/GED Difficulty w/ Childcare or Family Care: No Living arrangements: alone Occupation/Education: retired Gender identity (if verbalized by the patient): Male Spiritual care concerns: No Agree to blood products: Yes Meds Home Medications and Allergies Home Medications Medication Instructions Recorded Confirmed Type atorvastatin 20 mg tablet 20 mg PO DAILY 09/20/19 06/18/24 History metoprolol succinate 50 mg 50 mg PO DAILY 02/23/23 06/26/24 History tablet,extended release 24 hr rivaroxaban 15 mg tablet (Xarelto) 15 mg PO DAILY 02/23/23 06/26/24 History tamsulosin 0.4 mg capsule 0.4 mg PO DAILY 02/23/23 06/18/24 History ondansetron 4 mg disintegrating 4 mg PO Q8H PRN nausea and 01/18/24 06/18/24 Rx tablet vomiting #7 tabs lansoprazole 30 mg capsule,delayed 30 mg PO BID 05/24/24 06/26/24 History release metoclopramide HCl 5 mg tablet See Rx Instructions .Route 06/03/24 06/26/24 Rx .COMPLEX #30 tabs aspirin 81 mg tablet,delayed 81 mg PO DAILY 06/18/24 06/18/24
[2024-06-26 13:50] VITALS: BP 89/59; PULSE 70; RESP 20; O2SAT 100
[2024-06-26 14:00] VITALS: BP 109/62; PULSE 70; RESP 17; O2SAT 99
[2024-06-26 14:10] VITALS: BP 112/63; PULSE 70; RESP 17; O2SAT 99
== END 2024-06-26 14:15 | disposition home or self-care (01) ==
PROVIDERS: PCP Family Medicine Sports Medicine; Referring Provider Nurse Practitioner; Visit Provider Internal Medicine Gastroenterology
PROC: 0DJ08ZZ Inspection of Upper Intestinal Tract, Via Natural or Artificial Opening Endoscopic (ICD-10-PCS; CPT 43235; principal; 2024-06-26 14:00)
DX: K29.50 Unspecified chronic gastritis without bleeding (principal); N40.0 Benign prostatic hyperplasia without lower urinary tract symptoms; F32.A Depression, unspecified; J43.9 Emphysema, unspecified; F03.90 Unspecified dementia, unspecified severity, without behavioral disturbance, psychotic disturbance, mood disturbance, and anxiety; K21.9 Gastro-esophageal reflux disease without esophagitis; I13.0 Hypertensive heart and chronic kidney disease with heart failure and stage 1 through stage 4 chronic kidney disease, or unspecified chronic kidney disease; I50.9 Heart failure, unspecified; N18.9 Chronic kidney disease, unspecified; E78.5 Hyperlipidemia, unspecified; I48.0 Paroxysmal atrial fibrillation; M81.0 Age-related osteoporosis without current pathological fracture; D64.9 Anemia, unspecified; F41.9 Anxiety disorder, unspecified; I35.0 Nonrheumatic aortic (valve) stenosis; I48.92 Unspecified atrial flutter; I25.2 Old myocardial infarction; F17.210 Nicotine dependence, cigarettes, uncomplicated; F12.90 Cannabis use, unspecified, uncomplicated; Z79.01 Long term (current) use of anticoagulants; Z79.82 Long term (current) use of aspirin; Z79.891 Long term (current) use of opiate analgesic; Z98.890 Other specified postprocedural states; Z98.61 Coronary angioplasty status; Z98.1 Arthrodesis status; Z86.0100 Personal history of colon polyps, unspecified; Z87.442 Personal history of urinary calculi; Z86.718 Personal history of other venous thrombosis and embolism; Z87.11 Personal history of peptic ulcer disease; Z85.05 Personal history of malignant neoplasm of liver; Z86.79 Personal history of other diseases of the circulatory system; Z82.49 Family history of ischemic heart disease and other diseases of the circulatory system
CPT/HCPCS: 43239; 88305; J2003; J2704; J7120

== ENCOUNTER 2024-08-30 18:50 | Emergency (ER) | payer MEDICARE, MEDICAID, SELFPAY ==
[2024-08-30 18:51] VITALS: BP 149/75; PULSE 70; RESP 18; TEMP 36.3; O2SAT 100
== END 2024-08-30 20:57 | disposition left against medical advice (07) ==
PROVIDERS: PCP Family Medicine Sports Medicine
DX: R06.02 Shortness of breath (principal)
CPT/HCPCS: 99199

== ENCOUNTER 2024-12-29 19:34 | HOS | payer OTHER, SELFPAY ==
[2024-12-29 19:30] VITALS: BP 121/97; PULSE 73; RESP 26; TEMP 36.5; O2SAT 97
--- OUTSIDE RECORDS SUMMARY | 2024-12-29 20:18 | XMS_ITS | Encounter Summary ---
Author Organization [facility] Healthcare Address [address] [place] [address] Care Team Providers Care Wet Machine Cutter Name Role Phone Vinicio Dinero MD Primary Care Provider [phone] Mushtaq Blake MD Unavailable [phone] Miguel Ángel Sanchez MD Unavailable [phone] Monae Velasquez MD Primary Care Provider Emelyn Curtis MD Unavailable [phone] Heena Stephenson MD Unavailable [phone] Jeffery Bro MD Unavailable [phone] Anali Flores MD Unavailable [phone] Alessandro Dominguez NP Unavailable [phone] Luciano Rodriguez MD Unavailable Encounter Details Date Type Department Care Team (Late st Contact Info) Description 09/02/2022 Telephone [facility] - Interventional Radiology [address] [place] [address] Amanda Valenzuela, ZANE Social History Tobacco Use Types Packs/Day Years Used Date Smoking Tobacco: Every Day Cigarettes Smokeless Tobacco: Never Comments[facility] at this time. Alcohol Use Standard Drinks/Week Comments Not Currently 0 (1 standard drink = 0.6 oz pur e alcohol) AUDIT-C Answer Date Recorded Q1: How often do you have a drink containing alc ohol? Monthly or less 06/08/2022 Q2: How many drinks containi ng alcohol do you have on a typical day when you are drinking? 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 Gender Identity Not on file Sexual Orientation Not on file documented as of this encounter Plan of Treatment Not on file documented as of this encounter Visit Diagnoses Not on filedocumented in this encounter Additional Health Concerns Infection Onset Date Last Indicated Resolved Time COVID: Suspected 05/04/2023 05/04/2023 05/04/2023 8:26 PM CDT COVID: Suspected 03/04/2024 03/04/2024 03/04/2024 4:06 PM CDT documented as of this encounter Care Teams Wet Machine Cutter Relationship Specialty Start Date End Date Vinicio Dinero MD [address] [place] [address] PCP - General Internal Medicine 10/20/21 12/13/22 Monae Velasquez MD [address] [place] [address] PCP - General Family Practice 12/14/22 Mushtaq Blake MD [address] [place] [address] Medical Oncologist/Hematologi st Hematology and Oncology 09/09/22 Miguel Ángel Sanchez MD [address] [place] [address] Consulting Physician Radiation Oncology 12/09/22 Emelyn Curtis MD [address] [facility], [address] [place] [address] Consulting Physician Medical Oncology 04/17/23 Heena Stephenson MD [address] [facility] [address] [place] [address] Fellow General Surgery 04/17/23 Jeffery Bro MD [address] [facility] [address] [place] [address] Referring Physician Gastroenterology 05/16/23 Anali Flores MD [address] [facility] [address] [place] [address] Consulting Physician Cardiology 05/22/23 [place] [address] [address] [place] [address] Nurse Practitioner Pain Management 05/22/23 [place] [address] [address] [place] [address] Consulting Physician Interventional Radiology 03/14/24 documented as of this encounter
--- OUTSIDE RECORDS SUMMARY | 2024-12-29 20:18 | XMS_ITS | Encounter Summary ---
Author Organization [facility] Healthcare Address [address] [place] [address] Care Team Providers Care Road Contractor Name Role Phone Mushtaq Blake MD Unavailable [phone] Miguel Ángel Sanchez MD Unavailable [phone] Monae Velasquez MD Primary Care Provider Emelyn Curtis MD Unavailable [phone] Heena Stephenson MD Unavailable [phone] Jeffery Bro MD Unavailable [phone] Anali Flores MD Unavailable [phone] Alessandro Dominguez NP Unavailable [phone] Luciano Rodriguez MD Unavailable Encounter Details Date Type Department Care Team (Late st Contact Info) Description 01/05/2023 Telephone [facility] - Interventional Radiology [address] [place] [address] Amanda Valenzuela, RN Social History Tobacco Use Types Packs/Day Years Used Date Smoking Tobacco: Every Day Cigarettes 2 50 Smokeless Tobacco: Never Comments:Counseled pt to con tact PCP for assist with quitting, inst not to smoke for 24 hrs prior to surgery. Smoking cessation booklet given to pt. Alcohol Use Standard Drinks/Week Comments Not Currently 0 (1 standard drink = 0.6 oz pur e alcohol) AUDIT-C Answer Date Recorded Q1: How often do you have a drink containing alc ohol? Monthly or less 12/26/2022 Q2: How many drinks containi ng alcohol do you have on a typical day when you are drinking? 1 or 2 12/26/2022 Q3: How often do you have si x or more drinks on one occasion? 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 Not on file Not on file documented as of this encounter Plan of Treatment Not on file documented as of this encounter Results * (ABNORMAL) Basic metabolic panel (01/10/2023 9:41 AM CDT) Sodium 139 135 - 145 mmol/L [facility] Potassium, pl 4.5 3.3 - 4.9 mmol/L [facility] Chloride 106 97 - 110 mmol/L [facility] CO2 27 22 - 32 mmol/L [facility] Anion gap 6 2 - 15 mmol/L [facility] BUN 27(H) 8 - 25 mg/dL [facility] Creatinine 1.54(H) 0.80 - 1.30 mg/dL [facility] Glucose 97 70 - 199 mg/dL [facility] Comment: Interpretive Data Fasting glucose >/= 126 mg/dl is diagnostic for diabetes. Fasting is defined as no caloric intake for at least 8 hours. Fasting glucose between 100 mg/dl to 125 mg/dl is diagnostic of prediabetes. In a patient with classic symptoms of hyperglycemia or hyperglycemic crisis, a random glucose >/= 200 mg/dl is diagnostic for diabetes. In the absence of unequivocal hyperglycemia, results should be confirmed by repeat testing. The classification and Diagnosis of Diabetes Diabetes Care 202; 46: S19-S40. Current interpretive data was last revised 2022. Calcium 9.3 8.5 - 10.3 mg/dL [facility] Blood 01/10/2023 9:41 AM CDT 01/10/2023 10:19 AM CDT us Oscar Mcnair MD LAB BLOOD ORDERABLES Gladys l Result Performing Organization Address [facility] Co de Phone Number [facility] [address] [employer] [place], [place] [id number] * (ABNORMAL) CBC with auto differential (01/10/2023 9:41 AM CDT) WBC 10.5(H) 3.8 - 9.9 K/cumm [facility] Hgb 14.9 13.0 - 17.5 g/dL [facility] Hct 45.3 38.9 - 50.3 % [facility] Plt 154 150 - 400 K/cumm [facility] MPV 10.3 9.1 - 12.3 fL [facility] RBC 4.39 4.30 - 5.80 M/cumm [facility] MCV 103.2(H) 81.3 - 96.4 fL [facility] MCH 33.9(H) 27.1 - 33.3 pg [facility] MCHC 32.9 32.3 - 35.7 g/dL [facility] RDW CV 13.5 11.1 - 14.9 % [facility] RDW SD 51.4(H) 35.7 - 48.1 fL [facility] NRBC abs 0.00 0.00 - 0.01 K/cumm [facility] Blood 01/10/2023 9:41 AM CDT 01/10/2023 10:19 AM CDT Oscar Mcnair MD LAB BLOOD ORDERABLES Gladys l Result Performing Organization Address [facility]/ZIP Co de Phone Number [facility] [address] Department [employer] [place], [place] [id number] documented in this encounter Visit Diagnoses Diagnosis Hepatocellular carcinoma (HCC)- Primary Malignant neoplasm of liver, primary documented in this encounter Additional Health Concerns Infection Onset Date Last Indicated Resolved Time COVID: Suspected 05/04/2023 05/04/2023 05/04/2023 8:26 PM CDT COVID: Suspected 03/04/2024 03/04/2024 03/04/2024 4:06 PM CDT documented as of this encounter Care Teams Road Contractor Relationship Specialty Start Date End Date Monae Velasquez MD [address] DEPT [place] [address] PCP - General Family Practice 12/14/22 Mushtaq Blake MD Medical Oncologist/Hematologi st Hematology and Oncology 09/09/22 Miguel Ángel Sanchez MD [address] DEPT [place] [address] Consulting Physician Radiation Oncology 12/09/22 Emelyn Curtis MD [address] DIV IM MEDICAL ONCOLOGY, [address] [place] [address] Consulting Physician Medical Oncology 04/17/23 Heena Stephenson MD [address] [place] [address] Fellow General Surgery 04/17/23 Jeffery Bro MD [address] [address] Referring Physician Gastroenterology 05/16/23 Anali Flores MD [address] [place] [address] Consulting Physician Cardiology 05/22/23 Alessandro Dominguez [address] [address] [place] [address] Nurse Practitioner Pain Management 05/22/23 [place] [address] [place] [address] Consulting Physician Interventional Radiology 03/14/24 documented as of this encounter
--- OUTSIDE RECORDS SUMMARY | 2024-12-29 20:18 | XMS_ITS | Encounter Summary ---
Author Organization [facility] Address [address] [place] [address] Phone Care Team Providers Care Route Supervisor Name Role Phone Andrew Dawson MD Primary Care Provider Vinicio Dinero MD Primary Care Provider [phone] Marisa Carcamo PAC Unavailable Marisa Carcamo PAC Primary Care Pro vider Reason for Visit * Reason Comments Medication Refill Encounter Details Date Type Department Care Team (Late st Contact Info) Description 10/03/2020 Refill [facility] [address] [place] [address] Andrew Dawson MD [address] [address] Medication Refill Social History Tobacco Use Types Packs/Day Years Used Date Smoking Tobacco: Heavy Smoker Cigarettes 1 45 Smokeless Tobacco: Never Alcohol Use Standard Drinks/Week Comments Not Currently 0 (1 standard drink = 0.6 oz pur e alcohol) PHQ-2 Answer Date Recorded Total Score - Questions 1-9 0 12/2019 Sex and Gender Information Value Date Recorded Sex Assigned at Not on file Legal Sex Male 9:33 PM CDT Gender Identity Not on file Sexual Orientation Not on file documented as of this encounter Miscellaneous Notes * Telephone Encounter - Andrew Dawson MD - 10/04/2020 8:59 AM CST Prescription approved. Please call in MENT CONTROL COORDINATOR * Telephone Encounter - Gabby Coto RN - 10/03/2020 2:59 PM CST Medication failed the protocol, provider to review and approve the medication order if appropriate. Requested Prescriptions Pending Prescriptions Disp Refills [facility] Calcium-Vit D 500-125 MG-UNIT Tablet [Pharmacy Med Name: [facility] CALCIUM 500-VIT D3 125 TAB] 90 Tab 2 Sig: TAKE 1 TABLET BY MOUTH EVERY DAY There is no refill protocol information for this order Eliquis 5 MG Tablet [Pharmacy Med Name: ELIQUIS 5 MG TABLET] 180 Tab 3 Sig: TAKE 1 TABLET BY MOUTH TWICE A DAY Not Delegated - Hematology: Anticoagulants Failed - 10/03/2020 12:15 AM Failed - This refill cannot be delegated Passed - Valid encounter within last 12 months Past Office Visits Recent Outpatient Visits 1 month ago Anxiety [facility] Sera William APN, INDUSTRIAL SALES ENGINEER 4 months ago Chronic atrial fibrillation (HCC) [facility] - Andrew Lopez MD 5 months ago Chronic atrial fibrillation (HCC) [facility] William APN, INDUSTRIAL SALES ENGINEER 5 months ago Tachycardia [facility] Sera William SPA HOST, INDUSTRIAL SALES ENGINEER 6 months ago Chronic bilateral low back pain without sciatica [facility] Andrew Lopez MD Upcoming Appointments COMPLIANCE ENGINEER PRODUCTS - Recent and Past Visits Recent Visits Date Type Provider Dept 08/28/20 Office Visit Sera Spring APN, INDUSTRIAL SALES ENGINEER [facility] 05/12/20 Office Visit Andrew Dawson MD [facility] 04/17/20 Office Visit Sera Spring APN, CNP [facility] 04/15/20 Office Visit [facility] Spring APN, INDUSTRIAL SALES ENGINEER [facility] 03/12/20 Office Visit Andrew Dawson MD [facility] 01/08/20 Telemedicine Andrew Dawson MD [facility] 12/31/19 Telemedicine Andrew Dawson MD [facility] 10/09/19 Office Visit Sera Spring APN, INDUSTRIAL SALES ENGINEER [facility] 09/02/19 Office Visit Andrew Dawson MD [facility] 08/26/19 Office Visit Sánchez Jenkins APN, INDUSTRIAL SALES ENGINEER [facility] Showing recent visits within past 460 days with a meds authorizing provider and meeting all other requirements Future Appointments No visits were found meeting these conditions. Showing future appointments within next 90 days with a meds authorizing provider and meeting all other requirements MENT CONTROL COORDINATOR documented in this encounter Plan of Treatment Not on file documented as of this encounter Visit Diagnoses Not on filedocumented in this encounter Additional Health Concerns Infection Onset Date Last Indicated Resolved Time COVID - 08/02/2021 08/02/2021 08/22/2021 12:1 6 AM DOCUMENT CONTROL COORDINATOR COVID - 19 11/03/2021 11/03/2021 11/23/2021 12:1 6 AM DOCUMENT CONTROL COORDINATOR Assessment Noted Time PHQ-9 Depression Total Score: 0 08/28/20 11:08 AM DOCUMENT CONTROL COORDINATOR documented as of this encounter Care Teams Route Supervisor Relationship Specialty Start Date End Date Andrew Dawson MD [address] [address] PCP - General Family Medicine 11/08/16 01/29/21 Vinicio Dinero MD [address] [place] [address] PCP - General Internal Medicine 01/30/21 07/26/21 Marisa Carcamo, FOREST [address] [place] [address] PCP - General Physician Lead Assistant Manager 07/27/21 12/25/24 Marisa Carcamo, FOREST [address] [place] [address] Physician Lead Assistant Manager Physician Lead Assistant Manager 01/30/21 documented as of this encounter
--- OUTSIDE RECORDS SUMMARY | 2024-12-29 20:18 | XMS_ITS | Encounter Summary ---
Author Organization [facility] Address [address] [place] [address] Care Team Providers Care Stamping Die Maker Name Role Phone Ravinder Street MD Unavailable [phone] MD Unavailable [phone] Andrew Dawson MD Primary Care Provider [phone] Vinicio Dinero MD Primary Care Provider [phone] Encounter Details Date Type Department Care Team (Late st Contact Info) Description 08/12/2021 [facility] [address] [place] [address] Jony Hernandez MD [address] OF [facility]UL[facility] [address] Social History Tobacco Use Types Packs/Day Years Used Date Smoking Tobacco: Every Day Cigarettes 1 50 Smokeless Tobacco: Never Comments:tried patch but it did not work and he refused to gum; Alcohol Use Standard Drinks/Week Comments Yes 0 (1 standard drink = 0.6 oz pur e alcohol) rarely Sex and Gender Information Value Date Recorded Sex Assigned at Not on file Gender Identity Not on file Sexual Orientation Not on file COVID-19 Exposure Response Date Recorded In the last month, have you been in contact with someone who was confirmed or suspected to have Coronavirus / COVID-19? No / Unsure 07/19/2021 9:14 AM CDT documented as of this encounter Functional Status Functional Status Response Date of Assess ment Is person deaf or have andres us hearing difficulty? No 11/03/2018 Is person blind or have seri ous difficulty seeing? No 11/03/2018 Does person have serious difficulty walking/climbing stairs? No 11/03/2018 Does person have difficulty dressing/bathing? No 11/03/2018 Does person have difficulty doing errands alone? Yes-sister or brother take him due to SOB 11/03/2018 Cognitive Status Response Date of Assessm ent Does person have difficulty concentrating/remembering/making decisions? No 11/03/2018 documented as of this encounter Patient Instructions * Patient Instructions* Brittany Brown - 08/12/2021 8:13 AM PRESIDING STEWARD Patient's sister, Felisa called and said they are both sick today. She would ideally like to switch to TELEMED today. Can you call her at [phone]? 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
--- OUTSIDE RECORDS SUMMARY | 2024-12-29 20:18 | XMS_ITS | Encounter Summary ---
Author Organization [facility] Address [address] [place] [address] Phone Care Team Providers Care Superior Court Justice Name Role Phone Andrew Dawson MD Primary Care Provider [phone] Vinicio Dinero MD Primary Care Provider [phone] Marisa Carcamo PAC Unavailable Marisa Carcamo PAC Primary Care Pro vider Reason for Visit * Reason Onset Date Comments Medication Management 09/17/2020 Encounter Details Date Type Department Care Team (Late st Contact Info) Description 09/17/2020 Telephone [facility] [address] [place] [address] Andrew Dawson MD [address] [address] Medication Management Social History Tobacco Use Types Packs/Day Years [...] have Coronavirus / COVID-19? No / Unsure 08/28/2020 10:46 AM BLOCK HANDLER documented as of this encounter Miscellaneous Notes * Telephone Encounter - Andrew Dawson MD - 09/17/2020 11:44 AM CST no K HANDLER * Telephone Encounter - Senia Hernandez RN - 09/17/2020 11:22 AM BLOCK HANDLER Pt is calling back - States he did find the bottle, was filled 08/28/20 for #30 and he takes one tab BID. This would havelasted through 09/10. States that he hasn't gotten the script that was written on 09/10. Med was picked up on 09/10. With Covid they're not requiring signatures so they cannot tell who picked up the rx. Pt states when has has narcotics or xanax that either he or his sister will lemon picker, but he did not go last week on to pick it up. States his friend just last night and is anxious. Dr. Dawson, would you be agreeable to sending in a few tabs for him? Next fill is due in one week, on 09/24. K HANDLER * Telephone Encounter - Andrew Dawson MD - 09/17/2020 10:12 AM CST Not going to fill K HANDLER * Telephone Encounter - Zahira Santiago RN - 09/17/2020 9:59 AM BLOCK HANDLER Received call from Cheri at [facility] pharmacy who states patient called them last night and tried to getAlprazolam filled. Patient last had filled on 09/10 and this was picked up. Patient reporting to Cheri that he does not have this bottle and that someone must have picked it up for him and not given it to him. She states he told her that he would continue to look for bottle and has not called them this morning. She states that they would need a new script to fill this medication early. Call placed to patient who states that he is not able to find any bottle from the and states that last time he had it filled was 08/29/20. He is also unable to find this bottle. Routing to provider to advise on how to proceed. K HANDLER documented in this encounter Plan of Treatment Not on file documented as of this encounter Visit Diagnoses Not on filedocumented in this encounter Additional Health Concerns Infection Onset Date Last Indicated Resolved Time COVID - 19 08/02/2021 08/02/2021 08/22/2021 12:1 6 AM BLOCK HANDLER COVID - 19 11/03/2021 11/03/2021 11/23/2021 12:1 6 AM BLOCK HANDLER Assessment Noted Time PHQ-9 Depression Total Score: 0 08/28/20 11:08 AM BLOCK HANDLER documented as of this encounter Care Teams Superior Court Justice Relationship Specialty Start Date End Date Andrew Dawson MD #[address] [address] PCP - General Family Medicine 11/08/16 01/29/21 Vinicio Dinero MD [address] [place] [address] PCP - General Internal Medicine 01/30/21 07/26/21 Marisa Carcamo, FOREST [address] [place] [address] PCP - General Physician Frame Hand 07/27/21 12/25/24 Marisa Carcamo PAC [address] [place] [address] Physician Frame Hand Physician Frame Hand 01/30/21 documented as of this encounter
--- OUTSIDE RECORDS SUMMARY | 2024-12-29 20:18 | XMS_ITS | Encounter Summary ---
Author Organization [facility] Address [address] [place] [address] Phone Care Team Providers Care Nurse Transplant Name Role Phone Marisa Carcamo Jerrica PAC Primary Care Pro vider Reason for Visit * Reason Comments Medication Refill Encounter Details Date Type Department Care Team (Late st Contact Info) Description 08/01/2021 Refill [facility] [address] [place], [place] [id number] Andrew Dawson MD #[address] [id number] Medication Refill Social History Tobacco Use Types Packs/Day Years Used Date Smoking Tobacco: Heavy Smoker Cigarettes 1 45 Smokeless Tobacco: Never Alcohol Use Standard Drinks/Week Comments Not Currently 0 (1 standard drink = 0.6 oz pur e alcohol) PHQ-2 Answer Date Recorded Total Score - Questions 1-9 11 04/2021 Sexually Active Control Partners Comments Not Currently Sex and Gender Information Value Date Recorded Sex Assigned at Not on file Legal Sex Male 9:33 PM CDT Gender Identity Not on file Sexual Orientation Not on file COVID-19 Exposure Response Date Recorded In the last month, have you been in contact with someone who was confirmed or suspected to have Coronavirus / COVID-19? No / Unsure 08/02/2021 3:06 PM RANCH MANAGER documented as of this encounter Miscellaneous Notes * Telephone Encounter - Keerthi Moore RN - 08/02/2021 11:36 AM CST Calcium Carb-Cholecalciferol ([facility] Calcium-Vit D) 500-125 MG-UNIT Tablet 90 Tablet 2 12/31/2020 Sig - Route: Take 1 Tablet by mouth daily. - Oral Sent to pharmacy as: [facility] Calcium-Vit D 500-125 MG-UNIT Oral Tablet (Calcium Carb-Cholecalciferol) Class: E Prescribe E-Prescribing Status: Receipt confirmed by pharmacy (12/31/2020 ??8:59 AM CDT) Order Questions ?? Calcium Carb-Cholecalciferol ([facility] Calcium-Vit D) 500-125 MG-UNIT Tablet [[id number]] 8 Status: Active Ordering user: Andrew Dawson MD 12/31/20858 Authorized by: Andrew Dawson MD Frequency: Daily 12/31/20 - Until Discontinued Released by: Andrew Dawson MD 12/31/20858 Pharmacy [id number] Original Rx was discontinued on 12/23/[address] Dawson. The above medication is what patient should betaking per medication list. H MANAGER documented in this encounter Plan of Treatment Not on file documented as of this encounter Visit Diagnoses Not on filedocumented in this encounter Additional Health Concerns Infection Onset Date Last Indicated Resolved Time COVID - 19 08/02/2021 08/02/2021 08/22/2021 12:1 6 AM RANCH MANAGER COVID - 19 11/03/2021 11/03/2021 11/23/2021 12:1 6 AM RANCH MANAGER Assessment Noted Time PHQ-9 Depression Total Score: 0 06/04/20 12:00 PM CDT documented as of this encounter Care Teams Nurse Transplant Relationship Specialty Start Date End Date Marisa Carcamo PAC [address] [place] [address] PCP - General Physician Vp Business Development 07/27/21 12/25/24 documented as of this encounter
--- OUTSIDE RECORDS SUMMARY | 2024-12-29 20:18 | XMS_ITS | Encounter Summary ---
Author Organization [facility] Address [address] [place] [address] Phone Care Team Providers Care Precinct I Police Sergeant Name Role Phone Andrew Dawson MD Primary Care Provider [phone] Vinicio Dinero MD Primary Care Provider [phone] Marisa Carcamo PAC Unavailable Marisa Carcamo PAC Primary Care Pro vider Reason for Visit * Reason Comments Medication Refill Encounter Details Date Type Department Care Team (Late st Contact Info) Description 07/29/2020 Refill [facility] [address] [place] [address] Andrew Dawson MD #[address] [address] Medication Refill Social History Tobacco Use Types Packs/Day Years Used Date Smoking Tobacco: Heavy Smoker Cigarettes 1 45 Smokeless Tobacco: Never Alcohol Use Standard Drinks/Week Comments Not Currently 0 (1 standard drink = 0.6 oz pur e alcohol) PHQ-2 Answer Date Recorded PHQ-2 Score 0 05/23/2019 Sex and Gender Information Value Date Recorded Sex Assigned at Not on file Legal Sex Male 9:33 PM CDT Gender Identity Not on file Sexual Orientation Not on file documented as of this encounter Miscellaneous Notes * Telephone Encounter - Andrew Dawson MD - 07/30/2020 8:18 AM CST Prescription approved. Please call in CRUSHING MACHINE OPERATOR * Telephone Encounter - Kari Rose RN - 07/29/2020 3:20 PM CST Medication failed the protocol, provider to review and approve the medication order if appropriate. Pt was given a 15 day supply for this medication, has several denials for too soon-it has been 19 days, did PCP not want pt to continue with this medication? 05/12/2020 last OV, Next appt in 6 days, UDS on 04/17/2020. Requested Prescriptions Pending Prescriptions Disp Refills ALPRAZolam (XANAX) 0.5 MG Tablet [Pharmacy Med Name: ALPRAZOLAM 0.5 MG TABLET] 30 Tab 0 Sig: TAKE 1 TABLET BY MOUTH 2 TIMES DAILY NEEDED FOR ANXIETY. Not Delegated - Psychiatry: Anxiolytics/Hypnotics Failed - 07/29/2020 12:21 PM Failed - This refill cannot be delegated Passed - Valid encounter within last 6 months Past Office Visits Recent Outpatient Visits 2 months ago Chronic atrial fibrillation (HCC) [facility] - Andrew Lopez MD 3 months ago Chronic atrial fibrillation (HCC) [facility] - Sera William APN, CNP 3 months ago Tachycardia [facility] Sera William APN, STEEPING PRESS TENDER 4 months ago Chronic bilateral low back pain without sciatica [facility] - Andrew Lopez MD 6 months ago Liver lesion [facility] - Andrew Lopez MD Upcoming Appointments Future Appointments In [address] MRI, [facility] CORE JAVA SOFTWARE ENGINEER - Recent and Past Visits Recent Visits Date Type Provider Dept 05/12/20 Office Visit Andrew Dawson MD [facility] 04/17/20 Office Visit Sera Spring APN, CNP [facility] 04/15/20 Office Visit [facility] APN, CNP [facility] 03/12/20 Office Visit Andrew Dawson MD [facility] 01/08/20 Telemedicine Andrew Dawson MD [facility] 12/31/19 Telemedicine Andrew Dawson MD [facility] 10/09/19 Office Visit [facility]era Spring APN, STEEPING PRESS TENDER [facility] Office Visit Andrew Dawson MD [facility] 08/26/19 Office Visit Sánchez Jenkins APN, STEEPING PRESS TENDER [facility] 08/[facility]/19 Office Visit Andrew Dawson MD [facility] Showing recent visits within past 460 days with a meds authorizing provider and meeting all other requirements Future Appointments No visits were found meeting these conditions. Showing future appointments within next 90 days with a meds authorizing provider and meeting all other requirements CRUSHING MACHINE OPERATOR documented in this encounter Plan of Treatment Not on file documented as of this encounter Visit Diagnoses Not on filedocumented in this encounter Additional Health Concerns Infection Onset Date Last Indicated Resolved Time COVID - 19 08/02/2021 08/02/2021 08/22/2021 12:1 6 AM ROCK CRUSHING MACHINE OPERATOR COVID - 19 11/03/2021 11/03/2021 11/23/2021 12:1 6 AM ROCK CRUSHING MACHINE OPERATOR Assessment Noted Time PHQ-9 Depression Total Score: 0 03/12/20 12:31 PM CDT documented as of this encounter Care Teams Precinct I Police Sergeant Relationship Specialty Start Date End Date Andrew Dawson MD #[address] [address] PCP - General Family Medicine 11/08/16 01/29/21 Vinicio Dinero MD [address] [place] [address] PCP - General Internal Medicine 01/30/21 07/26/21 Marisa Carcamo PAC [address] [place] [address] PCP - General Physician Family Practice Nurse Practitioner 07/27/21 12/25/24 Marisa Carcamo, [facility] [address] [place] [address] Physician Family Practice Nurse Practitioner Physician Family Practice Nurse Practitioner 01/30/21 documented as of this encounter
--- OUTSIDE RECORDS SUMMARY | 2024-12-29 20:18 | XMS_ITS | Encounter Summary ---
Author Organization [facility] Address [address] [place] [address] Phone Care Team Providers Care Technical Specialist Name Role Phone Marisa Carcamo PAC Primary Care Pro vider Reason for Visit * Reason Comments Medication Refill Encounter Details Date Type Department Care Team (Late st Contact Info) Description 09/23/2021 Refill [facility] - [place] [address] [address] Marisa Carcamo, [facility] [address] [facility] [place] [address] Medication Refill Social History Tobacco Use Types Packs/Day Years Used Date Smoking Tobacco: Heavy Smoker Cigarettes 1 45 Smokeless Tobacco: Never Alcohol Use Standard Drinks/Week Comments Not Currently 0 (1 standard drink = 0.6 oz pure alcohol) a beer once in a great while, quit heavier drinking 20 years ago PHQ-2 Answer Date Recorded Total Score - Questions 1-9 0 03/2021 Sexually Active Control Partners Comments Not Currently Female Sex and Gender Information Value Date Recorded Sex Assigned at Not on file Legal Sex Male 9:33 PM CDT Gender Identity Not on file Sexual Orientation Not on file COVID-19 Exposure Response Date Recorded In the last month, have you been in contact with someone who was confirmed or suspected to have Coronavirus / COVID-19? No / Unsure 08/31/2021 9:53 AM AVIATION SUPPORT EQUIPMENT REPAIRER documented as of this encounter Miscellaneous Notes * Telephone Encounter - Zahira Butt RN - 09/23/2021 12:48 PM AVIATION SUPPORT EQUIPMENT REPAIRER Requested Prescriptions Pending Prescriptions Disp Refills busPIRone (BUSPAR) 5 MG Tablet [Pharmacy Med Name: BUSPIRONE HCL 5 MG TABLET] 60 Tablet 0 Sig: TAKE 1 TABLET BY MOUTH TWICE A DAY Buspirone (6 Month Refill Only) Protocol Failed - 09/23/2021 12:31 PM Failed - Has an encounter in the past 6 months with a depression or anxiety visit diagnosis Passed - Visit with relevant provider in past 6 months or upcoming 90 days Recent Visits Date Type Provider Dept 08/02/21 Office Visit Marisa Carcamo PAC [facility] 06/04/21 Office Visit Marisa Carcamo PAC [facility] Showing recent visits within past 182 days and meeting all other requirements Future Appointments No visits were found meeting these conditions. Showing future appointments within next 90 days and meeting all other requirements Passed - Patient has established therapy with Buspirone for at least 6 months TION SUPPORT EQUIPMENT REPAIRER documented in this encounter Plan of Treatment Not on file documented as of this encounter Visit Diagnoses Diagnosis Anxiety Anxiety state, unspecified documented in this encounter Additional Health Concerns Infection Onset Date Last Indicated Resolved Time COVID - 19 11/03/2021 11/03/2021 11/23/2021 12:1 6 AM AVIATION SUPPORT EQUIPMENT REPAIRER Assessment Noted Time PHQ-9 Depression Total Score: 11 021 3:00 PM AVIATION SUPPORT EQUIPMENT REPAIRER documented as of this encounter Care Teams Technical Specialist Relationship Specialty Start Date End Date Marisa Carcamo PAC [address] [place] [address] PCP - General Physician Digital Circuit Designer 07/27/21 12/25/24 documented as of this encounter
--- OUTSIDE RECORDS SUMMARY | 2024-12-29 20:18 | XMS_ITS | Encounter Summary ---
Author Organization [facility] Address [address] [facility] [place] [address] Care Team Providers Care Acting Teacher Name Role Phone Andrew Dawson MD Primary Care Provider [phone] MD Unavailable [phone] Maddi Cantrell DO Primary Care Provider [phone] MD Unavailable [phone] Andrew Dawson MD Primary Care Provider [phone] Vinicio Dinero MD Primary Care Provider [phone] Encounter Details Date Type Department Care Team (Late st Contact Info) Description 08/13/2018 Telephone [facility] [address] [facility] [address] [place] [address] Andrew Dawson MD [address] [place] [address] [address] [place] [address] Social History Tobacco Use Types Packs/Day Years Used Date Smoking Tobacco: Every Day Cigarettes 1 35 Smokeless Tobacco: Never Alcohol Use Standard Drinks/Week Comments Yes 0 (1 standard drink = 0.6 oz pur e alcohol) Drinks once a month Sex and Gender Information Value Date Recorded Sex Assigned at Not on file Gender Identity Not on file Sexual Orientation Not on file documented as of this encounter Functional Status Functional Status Response Date of Assess ment Is person deaf or have serious hearing difficult y? No 08/11/2018 Is person blind or have serious difficulty seein g? No 08/11/2018 Does person have serious dif ficulty walking/climbing stairs? No 08/11/2018 Does person have difficulty dressing/bathing? No 08/11/2018 Does person have difficulty doing errands alone? No 08/11/2018 Cognitive Status Response Date of Assessm ent Does person have difficulty concentrating/remembering/making decisions? 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
--- OUTSIDE RECORDS SUMMARY | 2024-12-29 20:18 | XMS_ITS | Encounter Summary ---
Author Organization [facility] Address [address] [place] [address] Phone Care Team Providers Care Conservation Assistant Name Role Phone Chiquis Carcamochon Donaldsonelle PAC Primary Care Pro vider Reason for Visit * Reason Comments Medication Refill Encounter Details Date Type Department Care Team (Late st Contact Info) Description 01/24/2022 Refill [facility] [address] [place] [address] Andrew Dawson MD [address] [address] Medication Refill Social History Tobacco Use Types Packs/Day Years Used Date Smoking Tobacco: Heavy Smoker Cigarettes 1 45 Smokeless Tobacco: Never Alcohol Use Standard Drinks/Week Comments Not Currently 0 (1 standard drink = 0.6 oz pure alcohol) a beer once in a great while, quit heavier drinking 20 years ago PHQ-2 Answer Date Recorded Total Score - Questions 1-9 0 10/26 Sexually Active Control Partners Comments Not Currently Female Sex and Gender Information Value Date Recorded Sex Assigned at Not on file Legal Sex Male 9:33 PM CDT Gender Identity Not on file Sexual Orientation Not on file documented as of this encounter Miscellaneous Notes * Telephone Encounter - Lise Jain RN - 01/25/2022 11:48 AM CDT Medication failed the protocol, provider to review and approve the medication order if appropriate. Requested Prescriptions Pending Prescriptions Disp Refills Eliquis 5 MG Tablet [Pharmacy Med Name: ELIQUIS 5 MG TABLET] 180 Tablet 3 Sig: TAKE 1 TABLET BY MOUTH TWICE A DAY Not Delegated - DOACs Protocol Failed - 01/24/2022 12:39 PM Failed - This refill cannot be delegated Failed - CBC on record in the past year WBC Date Value Ref Range Status 12/23/2020 5.05 4.00 - 12.00 10(3)/mcL Final WBC ESTERASE Date Value Ref Range Status 01/22/2020 25 /uL (A) Negative Final RBC Date Value Ref Range Status 12/23/2020 4.53 4.40 - 5.80 10(6)/mcL Final RBC MORPHOLOGY CONSISTENT WITH INDICES Date Value Ref Range Status 08/20/2018 Yes Final HEMATOCRIT (HCT) Date Value Ref Range Status 12/23/2020 45.8 38.0 - 50.0 % Final HEMOGLOBIN (HGB) Date Value Ref Range Status 12/23/2020 14.9 13.0 - 16.5 g/dL Final MCV Date Value Ref Range Status 12/23/2020 101.1 (H) 82.0 - 96.0 fL Final MCH Date Value Ref Range Status 12/23/2020 32.9 (H) 26.0 - 32.0 pg Final MCHC Date Value Ref Range Status 12/23/2020 32.5 31.0 - 36.0 g/dL Final Failed - Visit with relevant provider in past 12 months or upcoming 90 days Recent Visits Date Type Provider Dept 11/15/21 Office Visit Marisa Carcamo, PAC [facility] 11/08/21 Office Visit Marisa Carcamo, PAC [facility] 08/02/21 Office Visit Marisa Carcamo, PAC [facility] 06/04/21 Office Visit Marisa Carcamo, PAC [facility] 03/19/21 Office Visit Marisa Carcamo, PAC [facility] 02/01/21 Office Visit Marisa Carcamo, PAC [facility] Showing recent visits within past 365 days and meeting all other requirements Future Appointments No visits were found meeting these conditions. Showing future appointments within next 90 days and meeting all other requirements Failed - CMP on record in the past year SODIUM Date Value Ref Range Status 12/23/2020 137 136 - 144 mmol/L Final POTASSIUM Date Value Ref Range Status 12/23/2020 3.9 3.5 - 5.1 mmol/L Final CHLORIDE Date Value Ref Range Status 12/23/2020 101 100 - 110 mmol/L Final CO2, VENOUS Date Value Ref Range Status 12/23/2020 27 22 - 32 mmol/L Final ANION GAP Date Value Ref Range Status 12/23/2020 12.9 8.0 - 20.0 mmol/L Final GLUCOSE Date Value Ref Range Status 12/23/2020 96 70 - 99 mg/dL Final BUN Date Value Ref Range Status 12/23/2020 15 8 - 23 mg/dL Final CREATININE - POCT Date Value Ref Range Status 01/31/2020 1.8 (H) 0.6 - 1.3 mg/dL Final CREATININE, BLOOD Date Value Ref Range Status 12/23/2020 1.75 (H) 0.80 - 1.30 mg/dL Final BUN/CREATININE RATIO Date Value Ref Range Status 12/23/2020 9 (L) 12 - 20 ratio Final TOTAL PROTEIN Date Value Ref Range Status 12/23/2020 7.0 6.0 - 8.3 g/dL Final ALBUMIN Date Value Ref Range Status 12/23/2020 4.7 3.5 - 5.2 g/dL Final Comment: The colormetric methods used for the determination of Albumin may lead to falsely elevated test results in patients suffering from renal failure or insufficiency due to interference with other proteins. A/G RATIO Date Value Ref Range Status 12/23/2020 2.0 1.0 - 2.0 Final CALCIUM Date Value Ref Range Status 12/23/2020 9.6 8.9 - 10.3 mg/dL Final T BILI Date Value Ref Range Status 12/23/2020 0.5 <=1.2 mg/dL Final SGOT (AST) Date Value Ref Range Status 12/23/2020 14 <=40 U/L Final SGPT (ALT) Date Value Ref Range Status 12/23/2020 10 <=41 U/L Final ALKALINE PHOSPHATASE Date Value Ref Range Status 12/23/2020 128 40 - 130 U/L Final GFR, EST. NONAFRICAN Date Value Ref Range Status 12/23/2020 39 (L) >=60 Final GFR, EST. Date Value Ref Range Status 12/23/2020 48 (L) >=60 Final Comment: Creatinine Clearance is the preferred criteria for selecting drug dose adjustments in renally impaired patients. The GFR is provided as additional pertinent clinical information. GFR is reported in mL/min/1.73 sq m. IS THE PATIENT REQUIRED TO BE FASTING? Date Value Ref Range Status 12/23/2020 No Final Failed - Creatinine and GFR on record in the past year CREATININE - POCT Date Value Ref Range Status 01/31/2020 1.8 (H) 0.6 - 1.3 mg/dL Final CREATININE, BLOOD Date Value Ref Range Status 12/23/2020 1.75 (H) 0.80 - 1.30 mg/dL Final GFR, EST. NONAFRICAN Date Value Ref Range Status 12/23/2020 39 (L) >=60 Final documented in this encounter Plan of Treatment Not on file documented as of this encounter Visit Diagnoses Not on filedocumented in this encounter Additional Health Concerns Assessment Noted Time PHQ-9 Depression Total Score: 11 021 3:00 PM CREDIT UNION EXAMINER documented as of this encounter Care Teams Conservation Assistant Relationship Specialty Start Date End Date Marisa Carcamo PAC [address] [place] [address] PCP - General Physician Cloth Trimmer Hand 07/27/21 12/25/24 documented as of this encounter
--- OUTSIDE RECORDS SUMMARY | 2024-12-29 20:18 | XMS_ITS | Encounter Summary ---
Author Organization [facility] Address [address] [place] [address] Phone Care Team Providers Care Marriage And Family Therapist Name Role Phone Andrew Dawson MD Primary Care Provider [phone] Vinicio Dinero MD Primary Care Provider [phone] Marisa Carcamo PAC Unavailable Marisa Carcamo PAC Primary Care Pro vider Reason for Visit * Reason Comments Medication Refill Encounter Details Date Type Department Care Team (Late st Contact Info) Description 09/09/2020 Refill [facility] [address]2 [place] [id number] Sera Spring APRN, SHOP WELDER [address] [address] Medication Refill Social History Tobacco Use Types [...] COVID-19? No / Unsure 08/28/2020 10:46 AM HOSPICE VOLUNTEER COORDINATOR documented as of this encounter Miscellaneous Notes * Telephone Encounter - Andrew Dawson MD - 09/10/2020 8:42 AM CST Prescription pending signature ICE VOLUNTEER COORDINATOR * Telephone Encounter - Keerthi Moore RN - 09/10/2020 8:33 AM CST Last OV 08/28/20 - no follow up - last Rx 08/28/20 #30 (15 days supply) - next Rx 09/12/20 Medication failed the protocol, provider to review and approve the medication order if appropriate. Requested Prescriptions Pending Prescriptions Disp Refills ALPRAZolam (XANAX) 0.5 MG Tablet [Pharmacy Med Name: ALPRAZOLAM 0.5 MG TABLET] 30 Tab 0 Sig: TAKE 1 TAB BY MOUTH 2 TIMES DAILY NEEDED FOR ANXIETY. Not Delegated - Psychiatry: Anxiolytics/Hypnotics Failed - 09/09/2020 3:05 PM Failed - This refill cannot be delegated Passed - Valid encounter within last 6 months Past Office Visits Recent Outpatient Visits 1 week ago Anxiety [facility] - Sera William APN, SHOP WELDER 4 months ago Chronic atrial fibrillation (HCC) [facility] - Andrew Lopez MD 4 months ago Chronic atrial fibrillation (HCC) [facility] - Sera William APN, SHOP WELDER 4 months ago Tachycardia [facility] - Sera William APN, SHOP WELDER 6 months ago Chronic bilateral low back pain without sciatica [facility] - Andrew Lopez MD Upcoming Appointments GOLF COACH - Recent and Past Visits Recent Visits Date Type Provider Dept 08/28/20 Office Visit Sera Spring APN, CNP [facility] 05/12/20 Office Visit Andrew Dawson MD [facility] 04/17/20 Office Visit Sera Spring APN, CNP [facility] [place] 04/15/20 Office Visit Sera Spring APN, SHOP WELDER [facility] [place] 03/12/20 [facility] [place] 01/08/20 Telemedicine [facility] 12[facility]31/19 Telemedicine [facility] 10/09/19 Office Visit Sera Spring APN, SHOP WELDER [facility] 09/02/19 Office Visit Andrew Dawson MD [facility] [place] 08/26/19 Office Visit Sánchez Jenkins APN, SHOP WELDER [facility] Showing recent visits within past 460 days with a meds authorizing provider and meeting all other requirements Future Appointments No visits were found meeting these conditions. Showing future appointments within next 90 days with a meds authorizing provider and meeting all other requirements ICE VOLUNTEER COORDINATOR documented in this encounter Plan of Treatment Not on file documented as of this encounter Visit Diagnoses Diagnosis Anxiety Anxiety state, unspecified documented in this encounter Additional Health Concerns Infection Onset Date Last Indicated Resolved Time COVID - 19 08/02/2021 08/02/2021 08/22/2021 12:1 6 AM HOSPICE VOLUNTEER COORDINATOR COVID - 19 11/03/2021 11/03/2021 11/23/2021 12:1 6 AM HOSPICE VOLUNTEER COORDINATOR Assessment Noted Time PHQ-9 Depression Total Score: 0 08/28/20 11:08 AM HOSPICE VOLUNTEER COORDINATOR documented as of this encounter Care Teams Marriage And Family Therapist Relationship Specialty Start Date End Date Andrew Dawson MD [address] [address] PCP - General Family Medicine 11/08/16 01/29/21 Vinicio Dinero MD [address] [place] [address] PCP - General Internal Medicine 01/30/21 07/26/21 Marisa Carcamo [facility] [address] [place] [address] PCP - General Physician Microfilming Document Preparer 07/27/21 12/25/24 Marisa Carcamo, FOREST [address] [place] [address] Physician Microfilming Document Preparer Physician Microfilming Document Preparer 01/30/21 documented as of this encounter
--- OUTSIDE RECORDS SUMMARY | 2024-12-29 20:18 | XMS_ITS | Encounter Summary ---
Author Organization [facility] Address [address] [place] [address] Care Team Providers Care Mva Reactor Operator Name Role Phone Andrew Dawson MD Primary Care Provider [phone] MD Unavailable [phone] Maddi Cantrell DO Primary Care Provider [phone] MD Unavailable [phone] Andrew Dawson MD Primary Care Provider [phone] Vinicio Dinero MD Primary Care Provider [phone] Reason for Visit * Reason Onset Date Comments Appointment 08/13/2018 Encounter Details Date Type Department Care Team (Late st Contact Info) Description 08/13/2018 Telephone [facility] [address] [address] Maddi Cantrell DO [address] [facility] [place] [phone] Appointment Social History Tobacco Use Types Packs/Day Years [...] No 08/11/2018 documented as of this encounter Miscellaneous Notes * Telephone Encounter - Vinay Kindra - 08/14/2018 10:56 AM CST 2nd Attempt There is no 2:00 pm slot available for that day so I scheduled the patient for 2:30 pm. 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
--- OUTSIDE RECORDS SUMMARY | 2024-12-29 20:18 | XMS_ITS | Encounter Summary ---
Author Organization [facility] Address [address] [place] [address] Phone Care Team Providers Care Wastewater Treatment Plant Chemist Name Role Phone Andrew Dawson MD Primary Care Provider [phone] Vinicio Dinero MD Primary Care Provider [phone] Marisa Carcamo PAC Unavailable Marisa Carcamo PAC Primary Care Pro vider Reason for Visit * Reason Comments Medication Refill Encounter Details Date Type Department Care Team (Late st Contact Info) Description 10/20/2020 Refill [facility] [address] [place] [address] Andrew Dawson MD [address] [address] Medication Refill Social History Tobacco Use Types [...] have Coronavirus / COVID-19? No / Unsure 10/17/2020 2:19 PM FLOOR TRADER documented as of this encounter Miscellaneous Notes * Telephone Encounter - Keerthi Moore RN - 10/20/2020 2:47 PM CST [place] last fill 10/08/20 - next fill date 10/23/20 (post date script) Medication failed the protocol, provider to review and approve the medication order if appropriate. Requested Prescriptions Pending Prescriptions Disp Refills ALPRAZolam (XANAX) 0.5 MG Tablet [Pharmacy Med Name: ALPRAZOLAM 0.5 MG TABLET] 30 Tab 0 Sig: TAKE 1 TABLET BY MOUTH TWICE A DAY NEEDED FOR ANXIETY (DUE 10/23/20) Not Delegated - Psychiatry: Anxiolytics/Hypnotics Failed - 10/20/2020 11:12 AM Failed - This refill cannot be delegated Passed - Valid encounter within last 6 months Past Office Visits Recent Outpatient Visits 1 month ago Anxiety [facility] - Sera William APN, BEATER LEAD 5 months ago Chronic atrial fibrillation (HCC) [facility] - Andrew Lopez MD 6 months ago Chronic atrial fibrillation (HCC) [facility] - Sera William APN, BEATER LEAD 6 months ago Tachycardia [facility] - Sera William APN, BEATER LEAD 7 months ago Chronic bilateral low back pain without sciatica [facility] - Andrew Lopez MD Upcoming Appointments AEROPHYSICS ENGINEER - Recent and Past Visits Recent Visits Date Type Provider Dept 08/28/20 Office Visit Sera Spring APN, BEATER LEAD [facility] 05/12/20 Office Visit Andrew Dawosn MD [facility] 04/17/20 Office Visit Sera Spring APN, JOY [facility] 04/15/20 Office Visit Sera Spring APN, BEATER LEAD [facility] 03/12/20 Office Visit Andrew Dawson MD [facility] 01/08/20 Telemedicine Andrew Dawson MD [facility] 12/31/19 Telemedicine Andrew Dawson MD [facility] 10/09/19 Office Visit Sera Spring APN, JO[facility] 09/02/19 Office Visit Andrew [facility] MD [facility] 08/26/19 Office Visit Sánchez Jenkins APN, BEATER LEAD [facility] Showing recent visits within past 460 days with a meds authorizing provider and meeting all other requirements Future Appointments No visits were found meeting these conditions. Showing future appointments within next 90 days with a meds authorizing provider and meeting all other requirements R TRADER * Telephone Encounter - Deb Valente - 10/20/2020 11:11 AM CST Patient is calling to check status of refill request for Requested Prescriptions Pending Prescriptions Disp Refills ??? ALPRAZolam (XANAX) 0.5 MG Tablet [Pharmacy Med Name: ALPRAZOLAM 0.5 MG TABLET] 30 Tab 0 Sig: TAKE 1 TABLET BY MOUTH TWICE A DAY NEEDED FOR ANXIETY (DUE 10-08-20) Patient states he takes 2 tabs daily and is out of medication; states he only gets a two week supply at a time R TRADER documented in this encounter Plan of Treatment Not on file documented as of this encounter Visit Diagnoses Diagnosis Anxiety Anxiety state, unspecified documented in this encounter Additional Health Concerns Infection Onset Date Last Indicated Resolved Time COVID - 19 08/02/2021 08/02/2021 08/22/2021 12:1 6 AM FLOOR TRADER COVID - 19 11/03/2021 11/03/2021 11/23/2021 12:1 6 AM FLOOR TRADER Assessment Noted Time PHQ-9 Depression Total Score: 0 08/28/20 20 11:08 AM FLOOR TRADER documented as of this encounter Care Teams Wastewater Treatment Plant Chemist Relationship Specialty Start Date End Date Andrew Dawson MD #[address] [address] PCP - General Family Medicine 11/08/16 01/29/21 Vinicio Dinero MD [address] [place] [address] PCP - General Internal Medicine 01/30/21 07/26/21 Marisa Cracamo, PAC [address] [place] [address] PCP - General Physician Screw Cutter 07/27/21 12/25/24 Marisa Carcamo, PAC [address] [place] [address] Physician Screw Cutter Physician Screw Cutter 01/30/21 documented as of this encounter
--- OUTSIDE RECORDS SUMMARY | 2024-12-29 20:18 | XMS_ITS | Encounter Summary ---
Author Organization [facility] Address [address] [place] [address] Phone Care Team Providers Care Cafeteria Attendant Name Role Phone Marisa Carcamo PAC Primary Care Pro vider Reason for Visit * Reason Comments Medication Refill Encounter Details Date Type Department Care Team (Late st Contact Info) Description 10/26/2021 Refill [facility] - [place] [address] [place] [address] Marisa Carcamo, PAC [address] [place] [address] Medication Refill Social History Tobacco [...] encounter Miscellaneous Notes * Telephone Encounter - Rosi Bridges RN - 10/27/2021 7:00 AM CST Medication failed the protocol, provider to review and approve the medication order if appropriate. Requested Prescriptions Pending Prescriptions Disp Refills busPIRone (BUSPAR) 5 MG Tablet [Pharmacy Med Name: BUSPIRONE HCL 5 MG TABLET] 60 Tablet 0 Sig: TAKE 1 TABLET BY MOUTH TWICE A DAY Buspirone (6 Month Refill Only) Protocol Failed - 10/26/2021 11:34 AM Failed - Has an encounter in the past 6 months with a depression or anxiety visit diagnosis Passed - Visit with relevant provider in past 6 months or upcoming 90 days Recent Visits Date Type Provider Dept 08/02/21 Office Visit Marisa [facility]cam[facility] 06/04/21 Office Visit Marisa Carcamo PAC [facility] [place] Showing recent visits within past 182 days and meeting all other requirements Future Appointments No visits were found meeting these conditions. Showing future appointments within next 90 days and meeting all other requirements Passed - Patient has established therapy with Buspirone for at least 6 months CARRIER * Telephone Encounter - Keerthi Moore RN - 10/26/2021 5:11 PM CST Medication failed the protocol, provider to review and approve the medication order if appropriate. Requested Prescriptions Pending Prescriptions Disp Refills busPIRone (BUSPAR) 5 MG Tablet [Pharmacy Med Name: BUSPIRONE HCL 5 MG TABLET] 60 Tablet 0 Sig: TAKE 1 TABLET BY MOUTH TWICE A DAY Buspirone (6 Month Refill Only) Protocol Failed - 10/26/2021 11:34 AM Failed - Has an encounter in the past 6 months with a depression or anxiety visit diagnosis Passed - Visit with relevant provider in past 6 months or upcoming 90 days Recent Visits Date Type Provider Dept 08/02/21 Office Visit Marisa Carcamo PAC [facility] 06/04/21 Office Visit Marisa Carcamo PAC [facility] [place] Showing recent visits within past 182 days and meeting all other requirements Future Appointments No visits were found meeting these conditions. Showing future appointments within next 90 days and meeting all other requirements Passed - Patient has established therapy with Buspirone for at least 6 months CARRIER documented in this encounter Plan of Treatment Scheduled Orders Name Type Priority Associated Diagnoses Orde r Schedule URINE DRUG SCREEN Lab Routine Anxiety Expected: 11/09/2021, Expires: 11/09/2022 documented as of this encounter Visit Diagnoses Diagnosis Anxiety- Primary Anxiety state, unspecified documented in this encounter Additional Health Concerns Infection Onset Date Last Indicated Resolved Time COVID - 19 11/03/2021 11/03/2021 11/23/2021 12:1 6 AM BAT CARRIER Assessment Noted Time PHQ-9 Depression Total Score: 11 021 3:00 PM BAT CARRIER documented as of this encounter Care Teams Cafeteria Attendant Relationship Specialty Start Date End Date Marisa Carcamo PAC [address] [place] [address] PCP - General Physician Personal Care Assistant 07/27/21 12/25/24 documented as of this encounter
--- OUTSIDE RECORDS SUMMARY | 2024-12-29 20:18 | XMS_ITS | Encounter Summary ---
Author Organization [facility] Address [address] [place] [address] Care Team Providers Care Sow Farm Barn Technician Name Role Phone Ravinder Street MD Unavailable [phone] Maddi Cantrell DO Primary Care Provider [phone] MD Unavailable [phone] Andrew Dawson MD Primary Care Provider [phone] Vinicio Dinero MD Primary Care Provider [phone] Reason for Visit * Reason Onset Date Comments General 08/28/2018 Encounter Details Date Type Department Care Team (Late st Contact Info) Description 08/28/2018 Telephone [facility] General Internal Medicine [address] [facility] [address] [place] [address] Maddi Cantrell DO [address] [facility] [address] [place] [id number] General Social History Tobacco Use Types Packs/Day Years Used Date Smoking Tobacco: Every Day Cigarettes 1 50 Smokeless Tobacco: Never Alcohol Use Standard Drinks/Week [...] encounter Miscellaneous Notes * Telephone Encounter - Mehnaz Gutierrez - 08/28/2018 3:[address] prescribed xanax and prednisone for the pt. 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
--- OUTSIDE RECORDS SUMMARY | 2024-12-29 20:18 | XMS_ITS | Encounter Summary ---
Author Organization [facility] Address [address] [place] [address] Phone Care Team Providers Care Ed Transporter Name Role Phone Andrew Dawson MD Primary Care Provider Vinicio Dinero MD Primary Care Provider [phone] Marisa Carcamo PAC Unavailable Marisa Carcamo PAC Primary Care Pro vider Reason for Visit * Reason Comments Medication Refill Encounter Details Date Type Department Care Team (Late st Contact Info) Description 08/26/2020 Refill [facility] - Family Medicine [facility] [address] [place] [address] Andrew Dawson MD [address] [address] Medication Refill Social History Tobacco Use Types [...] COVID-19? No / Unsure 08/28/2020 10:46 AM SALES EXHIBITOR documented as of this encounter Miscellaneous Notes * Telephone Encounter - Eloy Felder - 08/26/2020 3:09 PM CST Pt called and I advised why med was refused. Called sister per comments to schedule appoitment.. Set up appt for 08-31-20 with FINANCIAL RECRUITER 11:15 S EXHIBITOR S EXHIBITOR S EXHIBITOR * Telephone Encounter - Keerthi Moore RN - 08/26/2020 12:16 PM CST Last OV 05/12/20 - no follow up - last Rx 07/30/20 - next Rx 08/29/20 Medication failed the protocol, provider to review and approve the medication order if appropriate. Requested Prescriptions Pending Prescriptions Disp Refills ALPRAZolam (XANAX) 0.5 MG Tablet [Pharmacy Med Name: ALPRAZOLAM 0.5 MG TABLET] 30 Tab 0 Sig: TAKE 1 TABLET BY MOUTH TWICE A DAY NEEDED FOR ANXIETY Not Delegated - Psychiatry: Anxiolytics/Hypnotics Failed - 08/26/2020 10:21 AM Failed - This refill cannot be delegated Passed - Valid encounter within last 6 months Past Office Visits Recent Outpatient Visits 3 months ago Chronic atrial fibrillation (HCC) [facility] - Andrew Lopez MD 4 months ago Chronic atrial fibrillation (HCC) [facility] - Sera William APN, FOOD RUNNER 4 months ago Tachycardia [facility] Sera William APN, FOOD RUNNER 5 months ago Chronic bilateral low back pain without sciatica [facility] - Andrew Lopez MD 7 months ago Liver lesion [facility] Andrew Lopez MD Upcoming Appointments DIRECTOR WEB - Recent and Past Visits Recent Visits Date Type Provider Dept 05/12/20 Office Visit Andrew Dawson MD [facility] 04/17/20 Office Visit Sera Spring APN, FOOD RUNNER [facility] 04/15/20 Office Visit Sera Spring APN, FOOD RUNNER [facility] 03/12/20 Office Visit Andrew Dawson MD [facility] 01/08/20 Telemedicine Andrew Dawson MD [facility] 12/31/19 Telemedicine Andrew Dawson MD [facility] 10/09/19 Office Visit Sera Spring APN, FOOD RUNNER [facility] 09/02/19 Office Visit Andrew Dawson MD [facility] 08/26/19 Office Visit S[facility]chez Jenkins [facility] FOOD RUNNER [facility] Showing recent visits within past 460 days with a meds authorizing provider and meeting all other requirements Future Appointments No visits were found meeting these conditions. Showing future appointments within next 90 days with a meds authorizing provider and meeting all other requirements S EXHIBITOR documented in this encounter Plan of Treatment Not on file documented as of this encounter Visit Diagnoses Not on filedocumented in this encounter Additional Health Concerns Infection Onset Date Last Indicated Resolved Time COVID - 19 08/02/2021 08/02/2021 08/22/2021 12:1 6 AM SALES EXHIBITOR COVID - 19 11/03/2021 11/03/2021 11/23/2021 12:1 6 AM SALES EXHIBITOR Assessment Noted Time PHQ-9 Depression Total Score: 0 03/12/20 12:31 PM CDT documented as of this encounter Care Teams Ed Transporter Relationship Specialty Start Date End Date Andrew Dawson MD [address] [address] PCP - General Family Medicine 11/08/16 01/29/21 Vinicio Dinero MD [address] [place] [address] PCP - General Internal Medicine 01/30/21 07/26/21 Marisa Carcamo, PAC [address] [place] [address] PCP - General Physician Supervisor Frame Sample And Pattern 07/27/21 12/25/24 Marisa Carcamo, PAC [address] [place] [address] Physician Supervisor Frame Sample And Pattern Physician Supervisor Frame Sample And Pattern 01/30/21 documented as of this encounter
--- OUTSIDE RECORDS SUMMARY | 2024-12-29 20:18 | XMS_ITS | Encounter Summary ---
Author Organization [facility] Address [address] [place] [address] Care Team Providers Care Ointment Mill Tender Name Role Phone Vinicio Dinero MD Primary Care Provider [phone] Mushtaq Blake MD Unavailable [phone] Miguel Ángel Sanchez MD Unavailable [phone] Monae Velasquez MD Primary Care Provider Emelyn Curtis MD Unavailable [phone] Heena Stephenson MD Unavailable [phone] Jeffery Bro MD Unavailable [phone] Anali Flores MD Unavailable [phone] Alessandro Dominguez NP Unavailable [phone] Luciano Rodriguez MD Unavailable [phone] Encounter Details Date Type Department Care Team (Late st Contact Info) Description 09/23/2022 Telephone [facility] - Interventional Radiology [address] [place] [address] Amanda Valenzuela, ZANE Social History Tobacco Use Types Packs/Day Years Used Date Smoking Tobacco: Every Day Cigarettes Smokeless Tobacco: Never Comments[facility] to [facility] counselor at this time. 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 Gender Identity Not on file Sexual Orientation [...] documented as of this encounter Care Teams Ointment Mill Tender Relationship Specialty Start Date End Date Vinicio Dinero MD [address] [place] [address] PCP - General Internal Medicine 10/20/21 12/13/22 Monae Velasquez MD [address] [place] [address] PCP - General Family Practice 12/14/22 Mushtaq Blake MD [address] [place] [address] Medical Oncologist/Hematologi st Hematology and Oncology 09/09/22 Miguel Ángel Sanchez MD [address] [place] [address] Consulting Physician Radiation Oncology 12/09/22 Emelyn Curtis MD [address] [facility] MEDICAL ONCOLOGY, [address], [address], [address] [address] Consulting Physician Medical Oncology 04/17/23 Heena Stephenson MD [address] [facility] [address] [place] [address] Fellow General Surgery 04/17/23 Jeffery Bro MD [address] [facility] [address] [place] [address] Referring Physician Gastroenterology 05/16/23 Anali Flores MD [address] [facility] [address] [place] [address] Consulting Physician Cardiology 05/22/23 [place] [address] [address] [place] [address] Nurse Practitioner Pain Management 05/22/23 [place] [address] [address] [place] [address] Consulting Physician Interventional Radiology 03/14/24 documented as of this encounter
--- OUTSIDE RECORDS SUMMARY | 2024-12-29 20:18 | XMS_ITS | Encounter Summary ---
Author Organization [facility] Address [address] [place] [address] Phone Care Team Providers Care Wire Frame Maker Name Role Phone Andrew Dawson MD Primary Care Provider Vinicio Dinero MD Primary Care Provider [phone] Marisa Carcamo PAC Unavailable Marisa Carcamo PAC Primary Care Pro vider Reason for Visit * Reason Comments Medication Refill Encounter Details Date Type Department Care Team (Late st Contact Info) Description 09/14/2020 Refill [facility] Family [facility] [address] [place] [address] Andrew Dawson MD [address] [address] Medication Refill Social History Tobacco Use Types [...] COVID-19? No / Unsure 08/28/2020 10:46 AM OIL WELL SERVICES FIELD SUPERVISOR documented as of this encounter Miscellaneous Notes * Telephone Encounter - Keerthi Moore RN - 09/15/2020 10:26 AM CST ALPRAZolam (XANAX) 0.5 MG Tablet 30 Tab 0 09/10/2020 Sig - Route: TAKE 1 TAB BY MOUTH 2 TIMES DAILY NEEDED FOR ANXIETY. - Oral Sent to pharmacy as: ALPRAZolam 0.5 MG Oral Tablet (XANAX) Class: E Prescribe Notes to Pharmacy: Quantity THIRTY - next fill 09/12/20 - Not to exceed 5 additional fills before 02/24/2021 E-Prescribing Status: Receipt confirmed by pharmacy (09/10/2020 ??8:42 AM OIL WELL SERVICES FIELD SUPERVISOR) ALPRAZolam (XANAX) 0.5 MG Tablet [[id number]] 0842 WELL SERVICES FIELD SUPERVISOR documented in this encounter Plan of Treatment Not on file documented as of this encounter Visit Diagnoses Diagnosis Anxiety Anxiety state, unspecified documented in this encounter Additional Health Concerns Infection Onset Date Last Indicated Resolved Time COVID - 19 08/02/2021 08/02/2021 08/22/2021 12:1 6 AM OIL WELL SERVICES FIELD SUPERVISOR COVID - 19 11/03/2021 11/03/2021 11/23/2021 12:1 6 AM OIL WELL SERVICES FIELD SUPERVISOR Assessment Noted Time PHQ-9 Depression Total Score: 0 08/28/20 11:08 AM OIL WELL SERVICES FIELD SUPERVISOR documented as of this encounter Care Teams Wire Frame Maker Relationship Specialty Start Date End Date Andrew Dawson MD [address] [address] PCP - General Family Medicine 11/08/16 01/29/21 Vinicio Dinero MD [address] [facility] [address] PCP - General Internal Medicine 01/30/21 07/26/21 Marisa Carcamo, PAC [address] [place] [address] PCP - General Physician Buyer Broker 07/27/21 12/25/24 Marisa Carcamo, PAC [address] [place] [address] Physician Buyer Broker Physician Buyer Broker 01/30/21 documented as of this encounter
--- OUTSIDE RECORDS SUMMARY | 2024-12-29 20:18 | XMS_ITS | Encounter Summary ---
Author Organization [facility] Address [address] [place] [address] Phone Care Team Providers Care Clinical Laboratory Aide Name Role Phone Marisa Carcamo PAC Primary Care Pro vider Reason for Visit * Reason Comments Medication Refill Encounter Details Date Type Department Care Team (Late st Contact Info) Description 11/30/2021 Refill [facility] - Internal Medicine - [place] [address] [place] [address] Marisa Carcamo, [facility] [address] [facility] [facility] [place] [address] Medication Refill Social History Tobacco [...] have Coronavirus / COVID-19? No / Unsure 11/15/2021 11:09 AM MARINE CHRONOMETER ASSEMBLER documented as of this encounter Miscellaneous Notes * Telephone Encounter - Lise Jain RN - 12/01/2021 9:59 AM CST Medication failed the protocol, provider to review and approve the medication order if appropriate. Requested Prescriptions Pending Prescriptions Disp Refills escitalopram (LEXAPRO) 10 MG Tablet [Pharmacy Med Name: ESCITALOPRAM 10 MG TABLET] 90 Tablet 0 Sig: TAKE 1 TABLET BY MOUTH EVERY DAY SSRI (6 Month Refill Only) Protocol Failed - 11/30/2021 4:52 PM Failed - Patient has established therapy with SSRI for at least 6 months Passed - Visit with relevant provider in past 6 months or upcoming 90 days Recent Visits Date Type Provider Dept 11/15/21 Office Visit Marisa Carcamo PAC [facility] 11/08/21 Office Visit Marisa Carcamo PAC [facility] 08/02/21 Office Visit Marisa Carcamo PAC [facility] 06/04/21 Office Visit Marisa Carcamo PAC [facility] Showing recent visits within past 182 days and meeting all other requirements Future Appointments Date Type Provider Dept 12/17/21 Appointment Marisa Carcamo PAC [facility] Showing future appointments within next 90 days and meeting all other requirements Passed - Has an encounter in the past 6 months with a depression, anxiety, adjustment disorder, OCD, or PTSD visit diagnosis NE CHRONOMETER ASSEMBLER documented in this encounter Plan of Treatment Not on file documented as of this encounter Visit Diagnoses Not on filedocumented in this encounter Additional Health Concerns Assessment Noted Time PHQ-9 Depression Total Score: 11 021 3:00 PM MARINE CHRONOMETER ASSEMBLER documented as of this encounter Care Teams Clinical Laboratory Aide Relationship Specialty Start Date End Date Marisa Carcamo PAC [address] [place] [address] PCP - General Physician Quencher Operator 07/27/21 12/25/24 documented as of this encounter
--- OUTSIDE RECORDS SUMMARY | 2024-12-29 20:18 | XMS_ITS | Encounter Summary ---
Author Organization [facility] Address [address] [place] [address] Phone Care Team Providers Care Basketball Referee Name Role Phone Andrew Dawson MD Primary Care Provider [phone] Vinicio Dinero MD Primary Care Provider [phone] Marisa Carcamo PAC Unavailable Marisa Carcamo PAC Primary Care Pro vider Reason for Visit * Reason Onset Date Comments Medication Refill 03/10/2020 Encounter Details Date Type Department Care Team (Late st Contact Info) Description 03/10/2020 Refill [facility] [address] [facility] [address] [place] [id number] Andrew Dawson MD [address] [address] Medication Refill Social History Tobacco Use Types [...] have Coronavirus / COVID-19? No / Unsure 03/12/2020 12:13 PM CDT documented as of this encounter Miscellaneous Notes * Telephone Encounter - Andrew Dawson MD - 03/10/2020 6:33 PM CDT Please call. I will not be prescribing him norco for his pain. If the pain doctor wishes to do so, its fine by me. * Telephone Encounter - Jerrica Young RN - 03/10/2020 5:33 PM CDT Pharmacy/location for refill to be sent to (if is not a written script)? [facility] 30 [facility] 60 tablet dispense documented in this encounter Plan of Treatment Not on file documented as of this encounter Visit Diagnoses Not on filedocumented in this encounter Additional Health Concerns Infection Onset Date Last Indicated Resolved Time COVID - 19 08/02/2021 08/02/2021 08/22/2021 12:1 6 AM VIDEO OPERATOR COVID - 19 11/03/2021 11/03/2021 11/23/2021 12:1 6 AM VIDEO OPERATOR Assessment Noted Time PHQ-9 Depression Total Score: 0 10/09/19 20 8:42 AM VIDEO OPERATOR documented as of this encounter Care Teams Basketball Referee Relationship Specialty Start Date End Date Andrew Dawson MD #[address] [address] PCP - General Family Medicine 11/08/16 01/29/21 Vinicio Dinero MD [address] [place] [address] PCP - General Internal Medicine 01/30/21 07/26/21 Marisa Carcamo [facility] [address] [place] [address] PCP - General Physician Brick Cleaner 07/27/21 12/25/24 Marisa Carcamo, [facility] [address] [place] [address] Physician Brick Cleaner Physician Brick Cleaner 01/30/21 documented as of this encounter
--- OUTSIDE RECORDS SUMMARY | 2024-12-29 20:18 | XMS_ITS | Encounter Summary ---
Author Organization [facility] Care Team Providers Care Safety Lamp Keeper Name Role Phone Andrew Dawson MD Primary Care Provider [phone] Andrew Dawson MD Primary Care Provider [phone] Vinicio Dinero MD Primary Care Provider [phone] Mushtaq Blake MD Unavailable [phone] Miguel Ángel Sanchez MD Unavailable [phone] Monae Velasquez MD Primary Care Provider Emelyn Curtis MD Unavailable [phone] Heena Stephenson MD Unavailable [phone] Jeffery Bro MD Unavailable [phone] Anali Flores MD Unavailable [phone] Alessandro Dominguez NP Unavailable [phone] Luciano Rodriguez MD Unavailable [phone] Encounter Details Date Type Department Care Team (Latest Contact Info) Description 06/27/2016 Orders Only [facility] Provider, MD Sourav [address] [place] [address] Social History Tobacco Use Types Packs/Day Years Used Date Smoking Tobacco: Never Assessed Sex and Gender Information Value Date Recorded Sex Assigned at Not on file Legal Sex Male 2:00 AM WEIGHT CALLER Gender Identity Not on file Sexual Orientation Not on file documented as of this encounter Plan of Treatment Not on file documented as of this encounter Procedures Procedure Name Priority Date/Time Associated Diagnosis Comments SCAN - LABS 07/11/2016 12:00 AM CDT documented in this encounter Results * SCAN - LABS (07/11/2016 12:00 AM CDT) Narrative 07/11/2016 12:00 AM CDT Ordered by an unspecified provider. us Historical Provider Final Res ult documented in this encounter Visit Diagnoses Not on filedocumented in this encounter Additional Health Concerns Infection Onset Date Last Indicated Resolved Time COVID: Suspected 05/04/2023 05/04/2023 05/04/2023 8:26 PM CDT COVID: Suspected 03/04/2024 03/04/2024 03/04/2024 4:06 PM CDT documented as of this encounter Care Teams Safety Lamp Keeper Relationship Specialty Start Date End Date Andrew Dawson MD PCP - General Cardiology 12/10/18 10/23/19 Andrew Dawson MD [address] [address] PCP - General Family Medicine 10/24/19 10/19/21 Vinicio Dinero MD [address] [place] [address] PCP - General Internal Medicine 10/20/21 12/13/22 Monae Velasquez MD [address] [place] [address] PCP - General Family Practice 12/14/22 Mushtaq Blake MD [address] [place] [address] Medical Oncologist/Hematologi st Hematology and Oncology 09/09/22 Miguel Ángel Sanchez MD [address] [place] [address] Consulting Physician Radiation Oncology 12/09/22 Emelyn Curtis MD [address] DIV IM MEDICAL ONCOLOGY, [address], [address]B, [address] [place] [address] Consulting Physician Medical Oncology 04/17/23 Heena Stephenson MD [address] [place] [address] Fellow General Surgery 04/17/23 Jeffery Bro MD [address] [facility] [address] [place] [id number] Referring Physician Gastroenterology 05/16/23 Anali Flores MD [address] [facility] [address] [place] [address] Consulting Physician Cardiology 05/22/23 Alessandro Dominguez SOLE CEMENTER [address] [place] [address] Nurse Practitioner Pain Management 05/22/23 [place] [address] [place] [address] Consulting Physician Interventional Radiology 03/14/24 documented as of this encounter
--- OUTSIDE RECORDS SUMMARY | 2024-12-29 20:18 | XMS_ITS | Encounter Summary ---
Author Organization [facility] Address [address] [place] [address] Phone Care Team Providers Care Social Work Administrator Name Role Phone Andrew Dawson MD Primary Care Provider Vinicio Dinero MD Primary Care Provider [phone] Marisa Carcamo PAC Unavailable Marisa Carcamo PAC Primary Care Pro vider Reason for Visit * Reason Comments Medication Refill Encounter Details Date Type Department Care Team (Late st Contact Info) Description 02/28/2020 Refill [facility] - Family Medicine [facility] #[address] [place] [address] Andrew Dawson MD [address] [address] Medication Refill Social History Tobacco Use Types [...] or suspected to have Coronavirus / COVID-19? Unable to assess 01/31/2020 12:05 PM CDT documented as of this encounter Miscellaneous Notes * Telephone Encounter - Andrew Dawson MD - 02/29/2020 11:50 AM CDT Prescription pending signature * Telephone Encounter - Keerthi Person RN - 02/28/2020 4:53 PM CDT Requested Prescriptions Pending Prescriptions Disp Refills ALPRAZolam (XANAX) 1 MG Tablet [Pharmacy Med Name: ALPRAZOLAM 1 MG TABLET] 30 Tab 0 Sig: Take 1 Tab by mouth 2 times daily as needed for Anxiety. Not Delegated - Psychiatry: Anxiolytics/Hypnotics Failed - 02/28/2020 2:40 PM Failed - This refill cannot be delegated Passed - Valid encounter within last 6 months Past Office Visits Recent Outpatient Visits 1 month ago Liver lesion [facility] Andrew Dawson MD 1 month ago Muscular chest pain [facility] Andrew Dawson MD 4 months ago Chronic diastolic CHF (congestive heart failure) (HCC) [facility] Sera Spring APN, CNP 5 months ago Chronic bilateral low back pain without sciatica [facility] Andrew Dawson MD 6 months ago Chronic bilateral low back pain without sciatica [facility] Sánchez Jenkins APN, JOY Upcoming Appointments Future Appointments In 1 month Althea Barton APN, JOY [facility], [facility] documented in this encounter Plan of Treatment Not on file documented as of this encounter Visit Diagnoses Not on filedocumented in this encounter Additional Health Concerns Infection Onset Date Last Indicated Resolved Time COVID - 19 08/02/2021 08/02/2021 08/22/2021 12:1 6 AM DRESS OPERATOR COVID - 19 11/03/2021 11/03/2021 11/23/2021 12:1 6 AM DRESS OPERATOR Assessment Noted Time PHQ-9 Depression Total Score: 0 10/09/19 20 8:42 AM DRESS OPERATOR documented as of this encounter Care Teams Social Work Administrator Relationship Specialty Start Date End Date Andrew Dawson MD [address] [address] PCP - General Family Medicine 11/08/16 01/29/21 Vinicio Dinero MD [address] [place] [address] PCP - General Internal Medicine 01/30/21 07/26/21 Marisa Carcamo, PAC [address] [place] [address] PCP - General Physician Treatment Technician 07/27/21 12/25/24 Marisa Carcamo, PAC [address] [place] [address] Physician Treatment Technician Physician Treatment Technician 01/30/21 documented as of this encounter
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
--- OUTSIDE RECORDS SUMMARY | 2024-12-29 20:18 | XMS_ITS | Encounter Summary ---
Author Organization [facility] Address [address] [place] [address] Phone Care Team Providers Care Plastic Injection Mold Maker Name Role Phone Andrew Dawson MD Primary Care Provider [phone] Vinicio Dinero MD Primary Care Provider [phone] Marisa Carcamo PAC Unavailable Marisa Carcamo PAC Primary Care Pro vider Reason for Visit * Reason Comments Medication Refill Encounter Details Date Type Department Care Team (Late st Contact Info) Description 03/17/2020 Refill [facility] - Family Medicine [facility] [address] [place] [address] Andrew Dawson MD [address] [address] Medication Refill Social History Tobacco Use Types [...] have Coronavirus / COVID-19? No / Unsure 03/17/2020 10:43 AM CDT documented as of this encounter Miscellaneous Notes * Telephone Encounter - Yane Sheriff RN - 03/18/2020 1:40 PM CDT Requested Prescriptions Pending Prescriptions Disp Refills ALPRAZolam (XANAX) 1 MG Tablet [Pharmacy Med Name: ALPRAZOLAM 1 MG TABLET] 30 Tab 0 Sig: TAKE 1 TAB BY MOUTH 2 TIMES DAILY NEEDED FOR ANXIETY. Not Delegated - Psychiatry: Anxiolytics/Hypnotics Failed - 03/17/2020 12:45 PM Failed - This refill cannot be delegated Passed - Valid encounter within last 6 months Past Office Visits Recent Outpatient Visits 6 days ago Chronic bilateral low back pain without sciatica [facility] Andrew Dawson MD 2 months ago Liver lesion [facility] Andrew Dawson MD 2 months ago Muscular chest pain [facility] Andrew Dawson MD 5 months ago Chronic diastolic CHF (congestive heart failure) (HCC) [facility] [place] APN, LABOR REPRESENTATIVE 6 months ago Chronic bilateral low back pain without sciatica [facility] Andrew Dawson MD Upcoming Appointments Future Appointments In 6 days Kaylynn Lockhart, MAGNETIC PROSPECTING OPERATOR [facility] In 1 week Kaylynn Lockhart, MAGNETIC PROSPECTING OPERATOR [facility] In 2 weeks Sarah Hilton, PT [facility] [employer]ered by [employer] - 03/17/2020 12:45 PM The requested medication is not on the active medication list. documented in this encounter Plan of Treatment Not on file documented as of this encounter Visit Diagnoses Not on filedocumented in this encounter Additional Health Concerns Infection Onset Date Last Indicated Resolved Time COVID - 19 08/02/2021 08/02/2021 08/22/2021 12:1 6 AM POLISHER AND BUFFER COVID - 19 11/03/2021 11/03/2021 11/23/2021 12:1 6 AM [employer]ER AND BUFFER Assessment Noted Time PHQ-9 Depression Total Score: 0 03/12/20 20 12:31 PM CDT documented as of this encounter Care Teams Plastic Injection Mold Maker Relationship Specialty Start Date End Date Andrew Dawson MD [address] [address] PCP - General Family Medicine 11/08/16 01/29/21 Vinicio Dinero MD [address] [place] [address] PCP - General Internal Medicine 01/30/21 07/26/21 Marisa Carcamo, PAC [address] [place] [address] PCP - General Physician Call Center Support Consultant 07/27/21 12/25/24 Marisa Carcamo, PAC [address] [place] [address] Physician Call Center Support Consultant Physician Call Center Support Consultant 01/30/21 documented as of this encounter
--- OUTSIDE RECORDS SUMMARY | 2024-12-29 20:18 | XMS_ITS | Encounter Summary ---
Author Organization [facility] Address [address] [place] [address] Phone Care Team Providers Care It Network Architect Name Role Phone Andrew Dawson MD Primary Care Provider Vinicio Dinero MD Primary Care Provider [phone] Marisa Carcamo PAC Unavailable Marisa Carcamo PAC Primary Care Pro vider Reason for Visit * Reason Comments Medication Refill Encounter Details Date Type Department Care Team (Late st Contact Info) Description 05/28/2020 Refill [facility] [address] [place] [address] Andrew Dawson MD [address] [address] Medication Refill Social History Tobacco Use Types [...] have Coronavirus / COVID-19? No / Unsure 05/12/2020 12:18 PM CDT documented as of this encounter Miscellaneous Notes * Telephone Encounter - Ginny Kaur - 05/28/2020 3:39 PM CDT Unable to sign per policy Routing for provider review and approval Thanks! documented in this encounter Plan of Treatment Not on file documented as of this encounter Visit Diagnoses Not on filedocumented in this encounter Additional Health Concerns Infection Onset Date Last Indicated Resolved Time COVID - 19 08/02/2021 08/02/2021 08/22/2021 12:1 6 AM NUCLEAR PROCESS ENGINEER COVID - 19 11/03/2021 11/03/2021 11/23/2021 12:1 6 AM NUCLEAR PROCESS ENGINEER Assessment Noted Time PHQ-9 Depression Total Score: 0 03/12/20 20 12:31 PM CDT documented as of this encounter Care Teams It Network Architect Relationship Specialty Start Date End Date Andrew Dawson MD [address] [address] PCP - General Family Medicine 11/08/16 01/29/21 Vinicio Dinero MD [address] [place] [address] PCP - General Internal Medicine 01/30/21 07/26/21 Marisa Carcamo, PAC [address] [place] [address] PCP - General Physician Gi Physician 07/27/21 12/25/24 Marisa Carcamo, PAC [address] [place] [address] Physician Gi Physician Physician Gi Physician 01/30/21 documented as of this encounter
--- OUTSIDE RECORDS SUMMARY | 2024-12-29 20:18 | XMS_ITS | Encounter Summary ---
Author Organization [facility] Address [address] [place] [address] Phone Care Team Providers Care Wine Cellar Worker Name Role Phone Andrew Dawson MD Primary Care Provider [phone] Vinicio Dinero MD Primary Care Provider [phone] Marisa Carcamo PAC Unavailable Marisa Carcamo PAC Primary Care Pro vider Reason for Visit * Reason Onset Date Comments Medication Refill Medication Refill 06/08/2020 Medication Refill 06/10/2020 Encounter Details Date Type Department Care Team (Late st Contact Info) Description 06/02/2020 Refill [facility] - Family Medicine [facility] [address]2 [place] [address] Andrew Dawson MD [address] [address] Medication Refill; Medication Refill; Medication Refill Social History Tobacco Use Types [...] Telephone Encounter - Andrew Dawson MD - 06/10/2020 10:38 AM CDT Prescription pending signature * Telephone Encounter - Mehnaz Prieto - 06/10/2020 10:04 AM CDT Patient is calling to check status of his refill request from 06/02/20. He is completely out of medication and requesting this to be sent to the [facility]. He takes it as directed 1 tablet by mouth twice a day and it only lasts him 15 days. Does he need the dosage explained or changed? Can he get this refilled ? * Telephone Encounter - Eloy Felder - 06/08/2020 2:56 PM CDT Pt called to check to check status of med.. advised pt med refused.. he said he is due for a refillnow and only gets 30 pills anyways. Pt would like a call back -Lucius * Telephone Encounter - Rosi Cooper RN - 06/04/2020 2:19 PM CDT Is 30 tabs taking twice a day as needed supposed to last 30 days? Last filled 05/12/20. * Telephone Encounter - Robyn Live - 06/03/2020 2:02 PM CDT Medication failed the protocol provider to review and approve the medication order. Requested Prescriptions Pending Prescriptions Disp Refills ALPRAZolam (XANAX) 0.5 MG Tablet [Pharmacy Med Name: ALPRAZOLAM 0.5 MG TABLET] 30 Tab 0 Sig: TAKE 1 TAB BY MOUTH 2 TIMES DAILY NEEDED FOR ANXIETY. Not Delegated - Psychiatry: Anxiolytics/Hypnotics Failed - 06/02/2020 4:28 PM Failed - This refill cannot be delegated Passed - Valid encounter within last 6 months Past Office Visits Recent Outpatient Visits 3 weeks ago Chronic atrial fibrillation (HCC) [facility] Andrew Dawson MD 1 month ago Chronic atrial fibrillation ([facility]CC[facility] Sera Spring APN, CNP 1 month ago Tachycardia [facility] Sera Diop APN, CNP 2 months ago Chronic bilateral low back pain without [facility]atica [facility] Andrew Conway MD 4 months ago Liver lesion [facility] Andrew Dawson MD Upcoming Appointments ONCOLOGY SPECIALIST - Recent and Past Visits Recent Visits Date Type Provider Dept 05/12/20 Office Visit Andrew Dawson MD [facility] 04/17/20 Office Visit Sera Spring APN, JOY [facility] 04/15/20 Office Visit Sera Spring APN, FINISHER CARD TENDER [facility] 03/12/20 Office Visit Andrew Dawson MD [facility] 01/08/20 Telemedicine Andrew Dawson MD [facility] 12/31/19 Telemedicine Andrew Dawson MD [facility] 10/09/19 Office Visit Sera Spring APN, JOY [facility] 09/02/19 Office Visit Andrew Dawson MD [facility] 08/26/19 Office Visit Sánchez Jenkins APN, JOY [facility] 08/20/19 Office Visit [facility] MD [facility] Showing recent visits within past 460 days with a meds authorizing provider and meeting all other requirements Future Appointments No visits were found meeting these conditions. Showing future appointments within next 90 days with a meds authorizing provider and meeting all other requirements documented in this encounter Plan of Treatment Not on file documented as of this encounter Visit Diagnoses Not on filedocumented in this encounter Additional Health Concerns Infection Onset Date Last Indicated Resolved Time COVID - 19 08/02/2021 08/02/2021 08/22/2021 12:1 6 AM COUPON COLLECTION CLERK COVID - 19 11/03/2021 11/03/2021 11/23/2021 12:1 6 AM COUPON COLLECTION CLERK Assessment Noted Time PHQ-9 Depression Total Score: 0 03/12/20 12:31 PM CDT documented as of this encounter Care Teams Wine Cellar Worker Relationship Specialty Start Date End Date Andrew Dawson MD [address] [address] PCP - General Family Medicine 11/08/16 01/29/21 Vinicio Dinero MD [address] [place] [address] PCP - General Internal Medicine 01/30/21 07/26/21 Marisa Carcamo, [facility] [address] [place] [address] PCP - General Physician Front Office Spec 07/27/21 12/25/24 Marisa Carcamo, [facility] [address] [place] [address] Physician Front Office Spec Physician Front Office Spec 01/30/21 documented as of this encounter
--- OUTSIDE RECORDS SUMMARY | 2024-12-29 20:18 | XMS_ITS | Encounter Summary ---
Author Organization [facility] Address [address] [place] [address] Phone Care Team Providers Care Gasket Inspector Name Role Phone Andrew Dawson MD Primary Care Provider Vinicio Dinero MD Primary Care Provider [phone] Marisa Carcamo PAC Unavailable Marisa Carcamo PAC Primary Care Pro vider Reason for Visit * Reason Comments Medication Refill Encounter Details Date Type Department Care Team (Late st Contact Info) Description 09/16/2020 Refill [facility] [address]2 [place] [address] Andrew Dawson MD [address] [address] Medication Refill Social History Tobacco Use Types [...] COVID-19? No / Unsure 08/28/2020 10:46 AM GAMMA FACILITIES OPERATOR documented as of this encounter Miscellaneous Notes * Telephone Encounter - Keerthi Moore RN - 09/16/2020 2:00 PM CST ALPRAZolam (XANAX) 0.5 MG Tablet 30 [...] Receipt confirmed by pharmacy (09/10/2020 ??8:42 AM GAMMA FACILITIES OPERATOR) ALPRAZolam (XANAX) 0.5 MG Tablet [[id number]] 0842 duplicate A FACILITIES OPERATOR documented in this encounter Plan of Treatment Not on file documented as of this encounter Visit Diagnoses Diagnosis Anxiety Anxiety state, unspecified documented in this encounter Additional Health Concerns Infection Onset Date Last Indicated Resolved Time COVID - 19 08/02/2021 08/02/2021 08/22/2021 12:1 6 AM GAMMA FACILITIES OPERATOR COVID - 19 11/03/2021 11/03/2021 11/23/2021 12:1 6 AM GAMMA FACILITIES OPERATOR Assessment Noted Time PHQ-9 Depression Total Score: 0 08/28/20 11:08 AM GAMMA FACILITIES OPERATOR documented as of this encounter Care Teams Gasket Inspector Relationship Specialty Start Date End Date Andrew Dawson MD #[address] [address] PCP - General Family Medicine 11/08/16 01/29/21 Vinicio Dinero MD [address] [place] [address] PCP - General Internal Medicine 01/30/21 07/26/21 Marisa Carcamo, PAC [address] [place] [address] PCP - General Physician Capsule Filling Machine Operator 07/27/21 12/25/24 Marisa Carcamo, PAC [address] [place] [address] Physician Capsule Filling Machine Operator Physician Capsule Filling Machine Operator 01/30/21 documented as of this encounter
--- OUTSIDE RECORDS SUMMARY | 2024-12-29 20:18 | XMS_ITS | Encounter Summary ---
Author Organization [facility] Address [address] [facility] [place] [address] Care Team Providers Care Strategic Marketing Manager Name Role Phone Ravinder Street MD Unavailable [phone] MD Unavailable [phone] Andrew Dawson MD Primary Care Provider [phone] Vinicio Dinero MD Primary Care Provider [phone] Reason for Visit * Reason Onset Date Comments MEDICATION REFILL 11/25/2020 Encounter Details Date Type Department Care Team (Late st Contact Info) Description 11/25/2020 Refill [facility] [address] [place] [address] Jony Hernandez MD [address] [facility] [address] [facility] [address] MEDICATION REFILL Social History Tobacco Use Types Packs/Day Years [...] No 11/03/2018 documented as of this encounter Plan of Treatment Not on file documented as of this encounter Visit Diagnoses Not on filedocumented in this encounter Additional Health Concerns Infection Onset Date Last Indicated Resolved Time 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
--- OUTSIDE RECORDS SUMMARY | 2024-12-29 20:18 | XMS_ITS | Encounter Summary ---
Author Organization [facility] Address [address] [place] [address] Phone Care Team Providers Care Lay Out Carpenter Name Role Phone Andrew Dawson MD Primary Care Provider Vinicio Dinero MD Primary Care Provider [phone] Marisa Carcamo PAC Unavailable Marisa Carcamo PAC Primary Care Pro vider Reason for Visit * Reason Comments Medication Refill Encounter Details Date Type Department Care Team (Late st Contact Info) Description 10/19/2020 Refill [facility] [address] [place] [address] Andrew Dawson MD [address] [address] Medication Refill Social History Tobacco Use Types [...] COVID-19? No / Unsure 10/17/2020 2:19 PM TOWEL ROLLING MACHINE OPERATOR documented as of this encounter Miscellaneous Notes * Telephone Encounter - Keerthi Moore RN - 10/19/2020 3:58 PM CST [place] 10/08/20 15 days - next fill due 10/22/20 Medication failed the protocol, provider to review and approve the medication order if appropriate. Requested Prescriptions Pending Prescriptions Disp Refills ALPRAZolam (XANAX) 0.5 MG Tablet [Pharmacy Med Name: ALPRAZOLAM 0.5 MG TABLET] 30 Tab 0 Sig: TAKE 1 TABLET BY MOUTH TWICE A DAY NEEDED FOR ANXIETY Not Delegated - Psychiatry: Anxiolytics/Hypnotics Failed - 10/19/2020 2:45 PM Failed - This refill cannot be delegated Passed - Valid encounter within last 6 months Past Office Visits Recent Outpatient Visits 1 month ago Anxiety [facility] - Sera William APN, CNP 5 months ago Chronic atrial fibrillation (HCC) [facility] - Andrew Lopez MD 6 months ago Chronic atrial fibrillation (HCC) [facility] Sera William APN, CNP 6 months ago Tachycardia [facility] Sera William APN, CNP 7 months ago Chronic bilateral low back pain without sciatica [facility] Andrew Lopez MD Upcoming Appointments HORIZONTAL DRILL OPERATOR - Recent and Past Visits Recent Visits Date Type Provider Dept 08/28/20 Office Visit Sera Spring APN, CNP [facility] 05/12/20 Office Visit Andrew Dawson MD [facility] 04/17/20 Office Visit Sera Spring APN, CNP [facility] [place] 04/15/20 Office Visit Sera Spring APN, CNP [facility] [place] 03/12/20 Office Visit Andrew Dawson MD [facility] 01/08/20 Telemedicine Andrew Dawson MD [facility] 12/31/19 Telemedicine [facility] 10/09/19 Office Visit Sera Spring APN, ACETYLENE PLANT OPERATOR [facility] 09/02/19 Office Visit Andrew Dawson MD [facility] 08/26/19 Office Visit Sánchez Jenkins APN, ACETYLENE PLANT OPERATOR [facility] Showing recent visits within past 460 days with a meds authorizing provider and meeting all other requirements Future Appointments No visits were found meeting these conditions. Showing future appointments within next 90 days with a meds authorizing provider and meeting all other requirements L ROLLING MACHINE OPERATOR * Telephone Encounter - Ruth Almodovar RN - 10/19/2020 2:44 PM CST Patient calling in regarding refill request for xanax Notified that refill request was received today from the pharmacy and is waiting for providers response To provider for direction L ROLLING MACHINE OPERATOR documented in this encounter Plan of Treatment Not on file documented as of this encounter Visit Diagnoses Diagnosis Anxiety Anxiety state, unspecified documented in this encounter Additional Health Concerns Infection Onset Date Last Indicated Resolved Time COVID - 19 08/02/2021 08/02/2021 08/22/2021 12:1 6 AM TOWEL ROLLING MACHINE OPERATOR COVID - 19 11/03/2021 11/03/2021 11/23/2021 12:1 6 AM TOWEL ROLLING MACHINE OPERATOR Assessment Noted Time PHQ-9 Depression Total Score: 0 08/28/20 20 11:08 AM TOWEL ROLLING MACHINE OPERATOR documented as of this encounter Care Teams Lay Out Carpenter Relationship Specialty Start Date End Date Andrew Dawson MD #[address] [address] PCP - General Family Medicine 11/08/16 01/29/21 Vinicio Dinero MD [address] [place] [address] PCP - General Internal Medicine 01/30/21 07/26/21 Marisa Carcamo MERGED WITH [facility] [address] [place] [address] PCP - General Physician Piercing Machine Operator 07/27/21 12/25/24 Marisa Carcamo, PAC [address] [place] [address] Physician Piercing Machine Operator Physician Piercing Machine Operator 01/30/21 documented as of this encounter
--- OUTSIDE RECORDS SUMMARY | 2024-12-29 20:18 | XMS_ITS | Encounter Summary ---
Author Organization [facility] Address [address] [place] [address] Phone Care Team Providers Care Room Attendant Name Role Phone Andrew Dawson MD Primary Care Provider [phone] Vinicio Dinero MD Primary Care Provider [phone] Marisa Carcamo PAC Unavailable Marisa Carcamo PAC Primary Care Pro vider Reason for Visit * Reason Onset Date Comments Medication Refill Medication Refill 11/13/2020 Encounter Details Date Type Department Care Team (Late st Contact Info) Description 11/13/2020 [facility] [address] [place] [address] Andrew Dawson MD [address] [address] Medication Refill; Medication Refill Social History Tobacco [...] COVID-19? No / Unsure 10/17/2020 2:19 PM SALES AMBASSADOR documented as of this encounter Plan of Treatment Not on file documented as of this encounter Visit Diagnoses Diagnosis Anxiety Anxiety state, unspecified documented in this encounter Additional Health Concerns Infection Onset Date Last Indicated Resolved Time COVID - 19 08/02/2021 08/02/2021 08/22/2021 12:1 6 AM SALES AMBASSADOR COVID - 19 11/03/2021 11/03/2021 11/23/2021 12:1 6 AM SALES AMBASSADOR Assessment Noted Time PHQ-9 Depression Total Score: 0 08/28/20 11:08 AM SALES AMBASSADOR documented as of this encounter Care Teams Room Attendant Relationship Specialty Start Date End Date Andrew Dawson MD #[address] [address] PCP - General Family Medicine 11/08/16 01/29/21 Vinicio Dinero MD [address] [place] [address] PCP - General Internal Medicine 01/30/21 07/26/21 Marisa Carcamo, [facility] [address] [place] [address] PCP - General Physician Truck Rental Service Attendant 07/27/21 12/25/24 Marisa Carcamo, [facility] [address] [place] [address] Physician Truck Rental Service Attendant Physician Truck Rental Service Attendant 01/30/21 documented as of this encounter
--- OUTSIDE RECORDS SUMMARY | 2024-12-29 20:18 | XMS_ITS | Referral Summary ---
Author Organization [facility] [address] Address [address] [place] [address] Care Team Providers Care Hvac Project Engineer Name Role Phone Mushtaq Blake MD Unavailable [phone] Miguel Ángel Sanchez MD Unavailable Monae Velasquez MD Primary Care Provider Emelyn Curtis MD Unavailable [phone] Heena Stephenson MD Unavailable [phone] Jeffery Bro MD Unavailable [phone] Anali Flores MD Unavailable Alessandro Dominguez NP Unavailable [phone] Luciano Rodriguez MD Unavailable Allergies Active Allergy Reactions Criticality Noted Date Comments Albuterol Anxiety,Other (See comments) Low 01/15/2019 tremors Varenicline Other (See comments) Low 03/09/2020 Bad dreams, nausea Medications nitroglycerin (NITROSTAT) 0.[address] 1 tablet (0.4 mg total) under the tongue every 5 (five) minutes as needed for chest pain 09/20/20 19 Active tamsulosin (FLOMAX) 0.4 mg extended release capsule Take 1 capsule (0.4 mg total) by mouth daily with dinner Helps you urinate 08/11/20 18 Active acetaminophen (TYLENOL) 500 mg tablet Take 2 tablets (1,000 mg total) by mouth every 6 (six) hours as needed for pain, headaches or fever Active furosemide (LASIX) 20 mg tablet Take 1 tablet (20 mg total) by mouth daily as needed (Swelling) Water pill as needed for swelling Active ondansetron ODT (ZOFRAN-ODT) 4 mg disintegrating tablet Take 1 tablet (4 mg total) by mouth every 8 (eight) hours as needed for nausea 20 tablet 04/13/20 23 Active metoprolol XL (TOPROL-XL) 50 mg extended release tabletIndications: Longstanding persistent atrial fibrillation (HCC) Take 1 tablet (50 mg total) by mouth daily 90 tablet 3 05/09/20 23 Active Xarelto 15 mg tabletIndications: Other persistent atrial fibrillation (HCC),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 90 tablet 3 08/02/20 23 Active aspirin 81 mg enteric coated tabletIndications: S/P TAVR (transcatheter aortic valve replacement) Take 1 tablet (81 mg total) by mouth daily 30 tablet 11 09/19/20 23 Active budesonide-glycopy r-formoterol (BREZTRI) 160-9-4.8 mcg/actuation inhalerIndications :Panlobular emphysema (HCC),Chronic respiratory failure with hypoxia, on home oxygen therapy ([facility]) Inhale 2 puffs 2 (two) times a day 32.1 g 3 12/11/19 24 Active Additional Information Patient not taking.Reported on 06/19/2024 lubiprostone (AMITIZA) 24 mcg capsuleIndications :Therapeutic opioid-induced constipation (OIC) TAKE 1 CAPSULE BY MOUTH 2 TIMES A DAY WITH MEALS. 60 capsule 01/09/20 24 Active sucralfate (CARAFATE) 1 gram tablet Take 1 tablet (1 g total) by mouth 4 (four) times a day 360 tablet 1 01/17/20 24 Active benzonatate (TESSALON) 100 mg capsuleIndications :Cough Take 1 capsule (100 mg total) by mouth 3 (three) times a day as needed for cough Active lactulose (CEPHULAC) 20 gram packetIndications: constipation Take 1 packet (20 g total) by mouth 2 (two) times a day 30 packet 03/04/20 24 Active polyethylene glycol (Miralax) 17 gram/dose bulk powderIndications: constipation Take 17 g by mouth daily Mix 1 scoop (17g) in 8oz of water and drink daily. 255 g 03/04/20 24 Active senna-docusate (PERICOLACE) 8.6-50 mg Take 1 tablet by mouth daily 30 tablet 03/04/20 24 Active docusate sodium (COLACE) 100 mg capsuleIndications :constipation Take 1 capsule (100 mg total) by mouth 2 (two) times a day for 7 days 14 capsule 03/14/[address] (PROTONIX) 20 mg EC tablet TAKE 1 TABLET BY MOUTH TWICE A DAY 180 tablet 05/10/20 24 Active atorvastatin (LIPITOR) 20 mg tablet Take 1 tablet (20 mg total) by mouth daily For cholesterol 90 tablet 1 06/07/20 24 Active ondansetron (ZOFRAN) 8 mg tablet Take 1 tablet (8 mg) by mouth twice a day for 3 days 60 tablet 3 06/19/20 24 Active dicyclomine (BENTYL) 20 mg tablet Take 1 tablet (20 mg total) by mouth every 6 (six) hours 60 tablet 3 06/19/20 24 Active mirtazapine (REMERON) 15 mg tabletIndications: MARICEL (generalized anxiety disorder),Moderate episode of recurrent major depressive disorder (HCC) TAKE 1 TABLET BY MOUTH EVERY DAY AT NIGHT 100 tablet 1 07/08/20 24 Active Active Problems Problem Noted Date Diagnosed Date Superior mesenteric artery stenosis 03/18/2024 Assessment & Plan (03/18/2024 5:21 PM CDT): Diagnosed on recent CT scan in the ER. This could likely be contributing to his recurrent abdominal pain. Discussed recommendation to consider seeing vascular surgery decide if intervention as needed. Patient defers. He has not interested in pursuing any additional medications or surgical options currently. We will continue monitor and try to medically manage. Encouraged him to stay on his atorvastatin 20 mg daily. We may need to consider upping this to 40 mg but he defers for today. Strongly counseled to stop smoking. Continue aspirin daily Platelets decreased 12/11/2023 Assessment & Plan (03/18/2024 5:21 PM CDT): Most recent labs. This has been intermittently present. We will need to monitor. It is likely related to underlying medical conditions. As long as no major bleeding concerns or not significant worsening we can likely defer additional evaluation Lumbar radiculitis 11/28/2023 Assessment & Plan (12/11/2023 6:01 PM CDT): Chronic. Working with pain management. Has planned epidural steroid injections Hx of atrioventricular node ablation 09/12/2023 Stage 3a chronic kidney disease 08/30/2023 Assessment & Plan (03/18/2024 5:26 PM CDT): Mild on prior labs. Has remained relatively stable. She would avoid NSAIDs. Assessment & Plan (12/11/2023 6:00 PM CDT): Chronic. Noted on prior labs. Avoid dehydrations and use of nonsteroidal anti-inflammatory drugs. It has been stable for the last several months Primary hypertension 08/30/2023 Assessment & Plan (03/18/2024 5:26 PM CDT): Slight elevation in office today. We will need to monitor. Patient is feeling relatively unwell after his recent procedure with the Y90 and feels that may be why it is up. We will need to see how it does over the next few months. If significant elevations occur they will let us know Assessment & Plan (12/11/2023 6:00 PM CDT): Chronic. Controlled. Continue metoprolol Biventricular cardiac pacemaker in situ 07/21/20 23 Overview (08/14/2023): Haynes Quadra Allure BIV Pacenaker. Dx; CHF, SSS, Afib, AV Node Ablation. DOI 08/11/2023-Pranav. EliSandra. Morgan remote. Sick sinus syndrome 07/20/2023 Assessment & Plan (12/11/2023 6:00 PM CDT): Chronic. Status post pacemaker. Stable. Continue care per cardiology and electrophysiology Assessment & Plan (08/10/2023 5:04 PM MEDICAL ASSEMBLY): Patient has a degree of persistent bradycardia on his last few office visits. He is following with Cardiology and has planned for upcoming cardiac ablation and pacemaker placement. Continue medication and care per Cardiology Moderate episode of recurrent major depressive d isorder 05/10/2023 Overview (05/10/2023): Chronic. Uncontrolled. Continue BuSpar, stop Lexapro and restart mirtazapine. Contract for safety Assessment & Plan (03/18/2024 5:25 PM CDT): Chronic. Fair control. Continue mirtazapine for mood as well as appetite stimulant benefits. Patient does not feel the BuSpar is helping much so we will allow him to try to wean off this to simplify his medication list. If mood significantly worsens with stopping then we may need to go back on it. Questions answered. They agree with plan. Brief supportive counseling was provided Assessment & Plan (12/11/2023 5:56 PM CDT): Chronic. Needs improvement. Increase Remeron. Continue BuSpar. Tasneem for safety. Brief supportive counseling provided MARICEL (generalized anxiety disorder) 05/10/2023 Assessment & Plan (03/18/2024 5:25 PM CDT): Chronic. Fair control. Continue mirtazapine for mood as well as appetite stimulant benefits. Patient does not feel the BuSpar is helping much so we will allow him to try to wean off this to simplify his medication list. If mood significantly worsens with stopping then we may need to go back on it. Questions answered. They agree with plan. Brief supportive counseling was provided Assessment & Plan (12/11/2023 5:56 PM CDT): Chronic. Needs improvement. Increase mirtazapine Assessment & Plan (08/10/2023 5:04 PM MEDICAL ASSEMBLY): Chronic. Continue the buspirone and mirtazapine. They never stopped the Lexapro as previously recommended. Encouraged them to stop. Monitor mood. Idiopathic peripheral neuropathy 11/16/2022 Assessment & Plan (12/11/2023 5:59 PM CDT): Chronic. Stable. On morphine per pain management now Hepatocellular carcinoma 10/31/2022 Cancer Staging:Clinical stage from 09/07/2022:Stage IIIA(cT3, cN0, cM0) - Signed by Miguel Ángel Sanchez MD on 12/26/2022 Assessment & Plan (03/18/2024 5:23 PM CDT): Chronic. Struggling. Had recent Y 90 procedure. He has feeling a little bit more unwell since this. We will need to monitor. He will keep working closely with his cancer team Assessment & Plan (12/11/2023 5:57 PM CDT): Chronic. Following with Oncology. Currently monitoring between treatments. Continue care per specialist Assessment & Plan (08/10/2023 5:03 PM MEDICAL ASSEMBLY): Chronic. Per recent notes from Oncology and Radiation Oncology they think it may be stable and are planning to just monitor over the next 3-6 months without any treatment unless new concerns arise. It does not sound like he is currently a candidate for hospice from his cancer standpoint based on their notes S/P TAVR (transcatheter aortic valve replacement ) 10/18/2022 Assessment & Plan (12/11/2023 5:57 PM CDT): Chronic. Doing well. Continue routine follow up with Cardiology Cervical spinal stenosis 05/03/2022 Assessment & Plan (12/11/2023 5:57 PM CDT): Chronic. Following with pain management for chronic pain. Narcotics deferred to them Lumbar post-laminectomy syndrome 12/07/2021 Assessment & Plan (12/11/2023 5:55 PM CDT): Chronic. Struggles with chronic back pain. Now on morphine for pain management. Struggling with the associated opioid induced constipation Assessment & Plan (08/10/2023 5:03 PM MEDICAL ASSEMBLY): Chronic back pain syndrome. Saw pain management but has not followed up. Encouraged him to follow up with pain management for long-term care. they are aware that I will not prescribe chronic narcotics and that this is being deferred to pain management Spinal stenosis of lumbar re gion without neurogenic claudication 12/07/2021 Assessment & Plan (12/11/2023 5:56 PM CDT): Chronic. Continue narcotics per pain management Assessment & Plan (08/10/2023 5:02 PM MEDICAL ASSEMBLY): Chronic. Struggles with chronic pain. Was previously referred to pain management for management of chronic pain issues as well as potential narcotics. Patient is aware that I will not prescribe chronic narcotics. Patient's oncologist had remotely giving him narcotics but has now stated they will no longer provide narcotics and that he needs to get him from pain management or his primary care provider. Patient is to follow up with pain management for long-term management of his chronic back pain issues Cervical spondylosis without myelopathy 12/08/19 Assessment & Plan (12/11/2023 5:57 PM CDT): Chronic. Struggles with pain. Now under the care of pain management. Continue medications per pain specialist Aortic valve stenosis, nonrheumatic 10/21/2021 Overview (11/16/2022): S/p TAVR 09/2022 Assessment & Plan (12/11/2023 5:55 PM CDT): Chronic. Prior valve replacement 1 year ago. No signs of decompensation. Continue medical management Assessment & Plan (08/10/2023 5:02 PM MEDICAL ASSEMBLY): Status post prior transaortic valve replacement. Care per Cardiology Chronic diastolic CHF (congestive heart failure) 01/21/2021 Assessment & Plan (03/18/2024 5:22 PM CDT): Chronic. Compensated. Continue current medication. Monitor Assessment & Plan (12/11/2023 5:55 PM CDT): Chronic. Compensated. Continue current prescription medication Assessment & Plan (08/10/2023 5:02 PM MEDICAL ASSEMBLY): Chronic. Compensated. Continue medication and care per Cardiology Persistent atrial fibrillation 01/20/2021 Assessment & Plan (03/18/2024 5:22 PM CDT): Chronic. Controlled. Continue beta-carlene and anticoagulation. Monitor Assessment & Plan (12/11/2023 5:55 PM CDT): Chronic. Stable. Continue current prescription medication. Continue anticoagulation for stroke prevention Assessment & Plan (08/10/2023 5:01 PM MEDICAL ASSEMBLY): Chronic. Follows with cardiology. Has plans for upcoming cardiac ablation and placement of pacemaker. Continue medication and care per Cardiology Chronic anticoagulation 02/19/2020 Assessment & Plan (03/18/2024 5:21 PM CDT): Chronic. Bleeding precautions recommended. Assessment & Plan (12/11/2023 5:54 PM CDT): Chronic no signs of spontaneous bleeding. Continue anticoagulation for stroke prevention. Bleeding precautions recommended Assessment & Plan (08/10/2023 5:01 PM MEDICAL ASSEMBLY): Chronic due to AFib. Discussed bleeding precautions. Avoid taking excessive aspirin or nonsteroidals while on anticoagulation Cognitive dysfunction 02/19/2020 Assessment & Plan (12/11/2023 5:57 PM CDT): Chronic. No signs of acute worsening. We will need to consider an updated mental status examination at a future appointment Tobacco use 02/19/2020 Assessment & Plan (03/18/2024 5:22 PM CDT): Chronic. Uncontrolled. Needs improvement. Counseled to quit. Patient is not really interested. We did discuss health risk and how this can adversely affect his other medical problems Assessment & Plan (12/11/2023 5:55 PM CDT): Chronic. Uncontrolled. Counseled patient on health risks and recommendation to quit. Greater than 3 minutes spent on smoking cessation counseling Assessment & Plan (08/10/2023 5:01 PM MEDICAL ASSEMBLY): Chronic. Counseled to quit. Reviewed health risks Chronic bilateral low back pain without sciatica 01/18/2017 Assessment & Plan (08/10/2023 5:04 PM MEDICAL ASSEMBLY): Chronic. Needs to follow up with pain management Panlobular emphysema 11/09/2016 Assessment & Plan (03/18/2024 5:24 PM CDT): Chronic. Breathing is stable. Continue breztri Assessment & Plan (12/11/2023 5:56 PM CDT): Chronic. Uncontrolled. Needs improvement. Noncompliant with inhalers. Restart BReztri. Stressed importance of smoking cessation. No signs of acute exacerbation Assessment & Plan (08/10/2023 5:00 PM MEDICAL ASSEMBLY): Chronic. Uncontrolled. Noncompliant with inhalers. Stressed importance of taking breast true regularly. Previously did not like any of the powdered inhalers. Still smoking. Patient will be referred to alternative fondant puff maker for management as he does not want to go to his previous 1 at [facility] Dyslipidemia 09/30/2016 Assessment & Plan (03/18/2024 5:23 PM CDT): Chronic. Tolerates atorvastatin. Continue. 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 They defer for today Assessment & Plan (12/11/2023 5:58 PM CDT): Chronic. Stable. Continue atorvastatin Assessment & Plan (08/10/2023 5:05 PM MEDICAL ASSEMBLY): Chronic. Encouraged to continue his atorvastatin for prevention of worsening cardiovascular issues given he has a degree of chronic chest pain and continues to smoke History of hepatitis C 06/01/2016 Right bundle branch block 06/01/2016 Gastroesophageal reflux disease without esophagi tis 12/11/2015 Assessment & Plan (03/18/2024 5:23 PM CDT): Struggling again recently. Continue PPI and Carafate. I suspect some of his issues may be related to a degree of superior mesenteric artery via stenosis increasing risk for bowel ischemia after eating. Patient is not interested in pursuing further interventions Assessment & Plan (12/11/2023 5:58 PM CDT): Chronic. Struggles some with intermittent symptoms. Has been under the care of GI. Reports he is taking the Carafate twice daily and is not currently on a PPI. He has been unable to wean completely off meds. No signs of acute ulcer CAD (coronary artery disease) 12/11/2015 Overview (11/16/2022): Nonocclusive coronary artery disease by cardiac catheterization in 2013. At that time cardiac cath showed a 30% stenosis involving the mid LAD and a 30-40% stenosis in the distal LAD. First marginal has 25%, second marginal has 20% stenosis mid right cor Assessment & Plan (03/18/2024 5:25 PM CDT): Chronic. Continue risk factor modification. Monitor. Assessment & Plan (12/11/2023 5:59 PM CDT): Chronic nonocclusive coronary artery disease. Continue risk factor modification with aspirin, cholesterol medication and blood pressure control. Denies chest pain. No signs of decompensation Assessment & Plan (08/10/2023 5:04 PM MEDICAL ASSEMBLY): Patient has a chronic degree of mild nonocclusive coronary artery disease. Encouraged to continue statin for primary prevention as long as he is tolerating Resolved Problems Problem Noted Date Diagnosed Date Resolved Date Chronic chest pain 09/12/2023 Acute gastric ulcer without hemorrhage or perforation 09/12/2023 12/11/2023 Visit for wound check 09/08/20232023 AICD problem 08/30/2023 09/12/2023 Pure hypercholesterolemia 08/30/2023 Neuropathy 08/30/2023 12/11/2023 Major depressive disorder 08/30/2023 Paroxysmal atrial fibrillation 08/30/2023 09/12/2023 Anxiety and depression 08/30/202312/10 Pacemaker pocket hematoma 08/30/2023 Paroxysmal A-fib 08/11/2023 09/12/2023 Paroxysmal atrial fibrillation 07/20/2023 09/12/2023 Bradycardia 05/09/2023 09/12/2023 Renal azotemia 05/05/2023 05/05/2023 Atrial fibrillation with RVR 05/05/2023 05/05/2023 COPD (chronic obstructive pulmonary disease) 12/11/2023 Biliary obstruction 03/13/2023 05/10/20 23 Choledocholithiasis 03/13/2023 03/13/20 23 Choledocholithiasis 03/13/2023 05/10/20 23 Nausea and vomiting 03/13/2023 05/10/20 23 Benign prostatic hyperplasia without lower urinary tract symptoms 11/16/2022 09/12/2023 Chronic respiratory failure with hypoxia, on home oxygen therapy 11/16/2022 09/12/2023 Overview (11/16/2022): supposed to be on 2 lpm 17/04 per pulm notes but mostly uses nightly Assessment & Plan (08/10/2023 5:01 PM MEDICAL ASSEMBLY): Chronic, intermittent hypoxemia. Has supplemental oxygen at night. Has been followed by pulmonology but wishes to switch to closer fondant puff maker Leg edema 10/31/2022 11/16/2022 Discomfort of left groin 10/31/2022 History of COVID-19 05/23/2022 11/16/19 23 Bruising 05/02/2022 11/16/2022 Stage 3a chronic kidney disease 04/25/2022 09/12/2023 Nontraumatic compression fra cture of L1 vertebra 03/04/2022 11/16/2022 Overview (11/16/2022): 01/2022 on MRI Cervical post-laminectomy syndrome 12/07/2021 09/12/2023 Shortness of breath 01/21/2021 05/10/20 Hypotension due to drugs 01/19/2021 CKD (chronic kidney disease) 01/19/2021 04/25/2022 Medication monitoring encounter 01/19/2021 09/12/2023 Typical atrial flutter (CMS/HCC) 02/19/2020 11/16/2022 Chronic chest pain 02/19/2020 3 Dizziness 02/19/2020 11/16/2022 Other emphysema 02/19/2020 08/10/2023 History of atrial fibrillation 02/19/2020 10/20/2021 Mixed conductive and sensori neural hearing loss of both ears 05/16/2017 09/12/2023 Immunizations Immunization Administration Dates Next Due Influenza, Quadrivalent, Spl it, Preservative Free, Intramuscular 11/15/2021,08/28/2020,08/20/2019,08/20,07/10/2017,07/27/2016 Influenza, Trivalent, IM (MDV) 08/20/2019,2015 Influenza, Unspecified 06/25/2023(Deferr ed: Patient Refused),08/07/2019,06/28/2016 Pneumococcal Polysaccharide PPV23 08/20/2018,09/2011 Tdap 06/26/2018,12/06/2013 Social History Tobacco Use Types Packs/Day Years Used Date Smoking Tobacco: Every Day Cigarettes 1 50 Smokeless Tobacco: Never Tobacco Cessation:Ready to Q uit: Not Asked; Counseling Given: Not Answered Comments:About a pack a day Alcohol Use Standard Drinks/Week Comments Not Currently 0 (1 standard drink = 0.6 oz pur e alcohol) [facility] Utilities Answer Date Recorded In the past 12 months has [employer] electric, gas, oil, or water company threatened to shut off services in your home? No 08/31/2023 Social Connection and Isolat ion Panel [NHANES] Answer Date Recorded In a typical week, how many times do you talk on the phone with family, friends, or neighbors? More than three times a week 08/31/2023 How often do you get togethe r with friends or relatives? More than three times a week 08/31/2023 How often do you attend chur ch or worship services? Never 08/31/2023 Do you belong to any clubs o r organizations such as jain groups, unions, fraternal or athletic groups, or school groups? No 08/31/2023 How often do you attend meet ings of the clubs or organizations you belong to? Never 08/31/2023 Are you , , di vorced, , never , or living with a partner? 08/31/2023 AUDIT-C Answer Date Recorded Q1: How often do you have a drink containing alcohol? Never 03/18/2024 Q2: How many drinks containi ng alcohol do you have on a typical day when you are drinking? Patient does not drink Q3: How often do you have si x or more drinks on one occasion? Never 03/18/2024 Overall Financial Resource Strain (CARDIA) Answe r Date Recorded How hard is it for you to pa y for the very basics like food, housing, medical care, and heating? Not hard at all 08/31/2023 PHQ-2 Answer Date Recorded PHQ-2 Total Score (If total score is 3 or more points, staff should administer the PHQ-9) 6 05/10/2023 Hunger Vital Sign Answer Date Recorded Within the past 12 months, y ou worried that your food would run out before you got the money to buy more. Never true 08/31/20 23 Within the past 12 months, t he food you bought just didn't last and you didn't have money to get more. Never true 08/31/2023 PRAPARE - Transportation Answer Date Re corded In the past 12 months, has l ack of transportation kept you from medical appointments or from getting medications? No 03/2023 In the past 12 months, has l ack of transportation kept you from meetings, work, or from getting things needed for daily living? No 08/31/2023 Housing Stability Vital Sign Answer Darren e Recorded In the last 12 months, was t here a time when you were not able to pay the mortgage or rent on time? No 08/31/2023 In the last 12 months, how many places have you lived? 1 08/31/2023 In the last 12 months, was t here a time when you did not have a steady place to sleep or slept in a longterm (including now)? No 08/31/2023 Personal Safety Answer Date Recorded Have you ever been in or are you currently in a harmful physical or emotional relationship or is someone making you feel afraid or unsafe? 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 Not on file Not on file Last Filed Vital Signs Vital Sign Reading Time Taken Comments Blood Pressure 138/75 06/19/2024 1:48 PM CDT Pulse 69 06/19/2024 1:48 PM CDT Temperature 36.6 C (97.8 F) 06/19/2024 1:48 PM CDT Respiratory Rate 18 06/19/2024 1:48 PM CDT Oxygen Saturation 100% 06/19/2024 1:48 PM CDT Inhaled Oxygen Concentration - - Weight 61.2 kg (135 lb) 06/19/2024 1:48 PM CDT Height 172.7 cm (5' 8 ) 04/26/2024 8:15 AM CDT Body Mass Index 20.53 04/26/2024 8:15 AM CDT Plan of Treatment Not on file Medical Devices Implanted Type Area Diesel Machinist Device Identifier Shelf Expiration Date Model / Serial / Lot [employer] Tendril Sts 6fr 58cm Is-1 Connector Active Fixation Bipolar Soft 58 - [id number] - [id number] Implanted:Qty: 1 on 08/11/2023 by Leon Rock MD at Lead Right: Ventricle [employer] 05/25/20262087TC/ 58 / [id number] / [employer] Tendril Sts 6fr 52cm Is-1 Connector Active Fixation Bipolar Soft - [id number] Implanted:Qty: 1 on 08/11/2023 by Leon Rock MD at Lead Right: Atrial Appendage [employer] 05/25/20268TC/ / / [employer] Quartet 4.7fr 86cm Quadripolar Is-4 Llll Connector 8 Curve Low 1456q/86 - [id number] - [id number] Implanted:Qty: 1 on 08/11/2023 by Leon Rock MD at Lead Right: Atrial Appendage [employer] 04/24/2026 1456Q/8 6 / [id number] / [place] Vascular Pacemaker Dual Chamber Fisher Lobster P Mri Compatible Quadra Allure Mp [id number] - [id number] - [id number] Implanted:Qty: 1 on 08/11/2023 by Leon Rock MD at Pacemaker Left: Infraclavicular Anterior Chest Wall [facility] [id number] / [id number] / [employer] Andreas Angio-Seal Vip 6fr Closere Device [id number] - [id number] Implanted:Qty: 1 on 06/08/2022 by Demetris Kay MD at [employer] 12/23/2022 [id number] / / [id number] [employer] Brooke 3 Commander Brown 26mm Transcatheter Ultra Low Profile [id number] - [id number] - [id number] Implanted:Qty: 1 on 10/18/2022 by Demetris Kay MD at [employer] 05/26/2025 [id number] / [id number] / Description:Heart valve 3T o r less [facility] Device Clsr Perclose Prostyle Sut-Mediatd Closure-Repair Sys 54907-39 - [id number] Implanted:Qty: 1 on 10/18/2022 by Demetris Kay MD at [facility] 07/25/2024 [id number] [facility] Device Clsr Perclose Prostyle Sut-Mediatd Closure-Repair Sys 25985-97 - [id number] Implanted:Qty: 1 on 10/18/2022 by Demetris Kay MD at [facility] 07/25/2024 80500-1 [employer] Andreas Angio-Seal Vip 6fr Closere Device [id number] - [id number] Implanted:Qty: 1 on 10/18/2022 by Demetris Kay MD at [facility] 06/24/2023 [id number] / / [id number] Medtronic Inc Coil Embolization Coated Detachable Helical Concerto 4gmb1od Nylon Cm-6-1-Meadow - [id number] Implanted:Qty: 1 on 12/07/2022 at [facility] [employer] Inc NV-3-4- HELIX / / Medtronic Inc Coil Embolization Coated Detachable Helical Concerto 1oxr99po Nylon Yk-3-75-Meadow - [id number] Implanted:Qty: 1 on 12/07/2022 at [facility] [employer] Inc NV-5-20 -HELIX / / [facility] Device Clsr Perclose Prostyle Sut-Mediatd Closure-Repair Sys 95568-43 - [id number] Implanted:Qty: 1 on 12/07/2022 at [facility] [id number] 09/24/2024 13390-5 3 / / [id number] Stanton [employer] Andreas Coil Emolization Coated Detachable Embold 8hcs01ui [place] [employer] [id number] 20 - [id number] Implanted:Qty: 1 on 12/07/2022 at [facility] [employer] Andreas [id number] 08/23/2025 [id number] 20 / / [id number] [employer] Andreas Coil Emolization Coated Detachable [place] Embold 0soy8ev [id number] 40 - [id number] Implanted:Qty: 1 on 12/07/2022 at [facility] [employer] Andreas [id number] 40 / / [employer] Andreas Coil Emolization Coated Detachable Embold 7yqw9mk [place] [employer] [id number] 80 - [id number] Implanted:Qty: 1 on 12/07/2022 at [facility] [employer] Andreas [id number] 07/31/2025 [id number] 80 / / [id number] Ir Marker .5mm X 1cm Preld 21ga 15cm Long Ndl Visicoil - [id number] Implanted:Qty: 1 on 01/10/2023 at [facility] [employer] 11/22/2025 SN-050- 010-PL1 [id number] Ir Marker .5mm X 1cm Preld 21ga 15cm Long Ndl Visicoil - [id number] Implanted:Qty: 1 on 01/10/2023 at [facility] [employer] 04/24/2025 SN-050- 010-PL1 [id number] Ir Marker .5mm X 1cm Preld 21ga 15cm Long Ndl Visicoil - [id number] Implanted:Qty: 1 on 01/10/2023 at [facility] [employer] 11/22/2025 SN-050- 010-PL1 [id number] Ir Marker .5mm X 1cm Preld 21ga 15cm Long Ndl Visicoil - [id number] Implanted:Qty: 1 on 01/10/2023 at [facility] [employer] 11/22/2025 SN-050- 010-PL1 [id number] Medtronic Inc Tyrx Absorbable Antibacterial Envelope-Large 3.3x2.9in Pihg3788 - [id number] Implanted:Qty: 1 on 09/01/2023 by Leon Rock MD at [employer] 05/18/2024 [id number] / / [id number] [employer] Andreas Angio-Seal Vip 6fr Closere Device [id number] - [id number] Implanted:Qty: 1 on 01/09/2024 at [facility] [employer] Andreas 08/02/2024 [id number] / / [id number] Stanton [employer] Andreas Coil Emolization Coated Detachable Embold 1toh32iv [place] [id number] 50 - [id number] Implanted:Qty: 1 on 01/09/2024 at [facility] [employer] Andreas [id number] 08/15/2026 [id number] 50 / / [id number] [employer] Andreas Coil Emolization Coated Detachable Embold 2dko67no [place] [id number] 00 - [id number] Implanted:Qty: 1 on 01/09/2024 at [facility] [employer] Andreas [id number] 09/07/2026 [id number] 00 / / [id number] [employer] Andreas Coil Emolization Coated Detachable [place] Embold 0yow3fo [id number] 40 - [id number] Implanted:Qty: 1 on 01/09/2024 at [facility] [employer] Andreas [id number] 07/25/2026 [id number] 40 / / [id number] [employer] Angio-Seal Vip 6fr Closere Device 288013 - [id number] Implanted:Qty: 1 on 03/14/2024 at [facility] [employer] Andreas 08/28/2024 [id number] / / [id number] Explanted Type Area Diesel Machinist Device Identifier Shelf Expiration Date Model / Serial / Lot [employer] Guy Flexi-Stent 7fr 9cm Small Pigtail Flexible .035in Stent 6575 - [id number] Implanted:Qty: 1 on 03/15/2023 by Rusty Pendleton MD at [facility] Explanted:Qty: 1 on 03/17/2023 by Ronald Cortez MD at [facility] Stent N/A: Pancreas [employer] [id number] 09/25/2021 6575 / / [id number] Stanton Scientific Andreas Wallflex 10mm X 60mm Fully Covered Biliary [id number] - [id number] Implanted:Qty: 1 on 03/15/2023 by Rusty Pendleton MD at [facility] Explanted:Qty: 1 on 03/17/2023 by Ronald Cortez MD at [facility] Stent N/A: Bile Duct [employer] Andreas [id number] 12/05/2024 [id number] / / [id number] Procedures Procedure Name Priority Date/Time Associated Diagnosis Comments CT ABDOMEN PELVIS W CONTRAST ED 03/04/2024 7:09 PM CDT HEPATITIS C RNA, QUANTITATIVE, PCR Routine 05/13/2016 9:11 AM CDT OCCULT BLOOD, FECAL (FIT) Routine 05/01/2016 10:10 AM CDT from Last 3 Months or Most Recently Relevant to Health Maintenance Results * CT Abdomen Pelvis W Contrast (03/04/2024 7:09 PM CDT) Anatomical Region Laterality Modality Body N/A Computed Tomogra phy 03/04/2024 7:04 PM CDT Impressions 03/05/2024 9:58 AM CDT 1. Stable hepatic mass. 2. Moderate constipation. A few diverticula of the colon. 3. 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 Correlate with prior postcontrast CT to assess stability. 4. Stable and incidental findings as above. 5. No evidence of an acute abdomen or pelvis abnormality. Stat report by [facility] Electronically signed by: Misbah Li M.D. Narrative 03/05/2024 9:58 AM CDT EXAMINATION: CT ABDOMEN PELVIS W CONTRAST DATE: 03/04/2024 7:05 PM HISTORY: Nausea/vomiting TECHNIQUE: Transaxial imaging through the abdomen and pelvis was performed with 2-D reformats following the intravenous administration of approximately 75 mL of Optiray-350. COMPARISON: MRI ABDOMEN LIVER W WO CONTRAST 12/26/2023 9:51 AM FINDINGS: Lungs: There is pulmonary calcification consistent with remote granulomatous organism exposure. Minimal linear atelectasis right middle lobe and right lower lobe. Small linear atelectasis in the lingula. Liver: Stable heterogeneous hepatic mass. Hepatic and periportal region postoperative changes. Gallbladder and bile ducts: Stable intrahepatic biliary ductal dilation mostly within the left hepatic lobe. Pancreas: Normal. No ductal dilation. Spleen: There are splenic granulomas. Adrenal glands: Normal. No mass. Kidneys and ureters: Stable small right renal cyst. Stable left renal atrophy. Postoperative changes adjacent to the left kidney. Stomach and bowel: There is diverticulum of proximal duodenum. There is fecal loading through to the cecum. No bowel dilation. There is no evidence of intestinal obstruction. Appendix: A normal appendix is identified. Intraperitoneal space: Unremarkable. No free air. No significant fluid collection. Vasculature: The aorta demonstrates severe atherosclerotic calcification and ectasia. 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 Lymph nodes: Unremarkable. No enlarged lymph nodes. Urinary bladder: Unremarkable as visualized. Reproductive: The prostate gland demonstrates nonspecific parenchymal calcifications. Bones/joints: Status post L2 vertebroplasty. There is chronic severe L1 compression fracture. There is chronic mild L3 compression fracture. Multilevel facet hypertrophy.There is osteopenia. There is moderate canal stenosis at L3-L4 and severely at L4-L5. Soft tissues: Small fat containing right inguinal hernia. Procedure Note Misbah Li MD - 03/05/2024 EXAMINATION: CT ABDOMEN PELVIS W CONTRAST DATE: 03/04/2024 7:05 PM HISTORY: Nausea/vomiting TECHNIQUE: Transaxial imaging through the abdomen and pelvis was performed with 2-D reformats following the intravenous administration of approximately 75 mL of Optiray-350. COMPARISON: MRI ABDOMEN LIVER W WO CONTRAST 12/26/2023 9:51 AM FINDINGS: Lungs: There is pulmonary calcification consistent with remote granulomatous organism exposure. Minimal linear atelectasis right middle lobe and right lower lobe. Small linear atelectasis in the lingula. Liver: Stable heterogeneous hepatic mass. Hepatic and periportal region postoperative changes. Gallbladder and bile ducts: Stable intrahepatic biliary ductal dilation mostly within the left hepatic lobe. Pancreas: Normal. No ductal dilation. Spleen: There are splenic granulomas. Adrenal glands: Normal. No mass. Kidneys and ureters: Stable small right renal cyst. Stable left renal atrophy. Postoperative changes adjacent to the left kidney. Stomach and bowel: There is diverticulum of proximal duodenum. There is fecal loading through to the cecum. No bowel dilation. There is no evidence of intestinal obstruction. Appendix: A normal appendix is identified. Intraperitoneal space: Unremarkable. No free air. No significant fluid collection. Vasculature: The aorta demonstrates severe atherosclerotic calcification and ectasia. 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 Lymph nodes: Unremarkable. No enlarged lymph nodes. Urinary bladder: Unremarkable as visualized. Reproductive: The prostate gland demonstrates nonspecific parenchymal calcifications. Bones/joints: Status post L2 vertebroplasty. There is chronic severe L1 compression fracture. There is chronic mild L3 compression fracture. Multilevel facet hypertrophy.There is osteopenia. There is moderate canal stenosis at L3-L4 and severely at L4-L5. Soft tissues: Small fat containing right inguinal hernia. IMPRESSION: 1. Stable hepatic mass. 2. Moderate constipation. A few diverticula of the colon. 3. 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 Correlate with prior postcontrast CT to assess stability. 4. Stable and incidental findings as above. 5. No evidence of an acute abdomen or pelvis abnormality. Stat report by [facility] Electronically signed by: Misbah iL M.D. Iqra Hedrick MD IMG CT PROCEDURES Gladys l Result * (ABNORMAL) Hepatitis C (HCV) RNA PCR, quantitative (05/13/2016 9:11 AM CDT) [facility] HBsAb log IU/mL 2.0 () log IU 6 7:33 AM [email or web address] HISTORICAL RESULTS Comment: INTERPRETIVE INFORMATION: Hepatitis C Virus by Quantitative PCR The quantitative range of this assay is 1.2 - 8.0 log IU/mL (15- 100,000,000 IU/mL). Limit of detection (LOD): 15 IU/mL (1.2 log IU/mL) LOD values do not apply to diluted specimens. An interpretation of Not Detected does not rule out the presence of PCR inhibitors in the patient specimen or hepatitis C virus RNA concentrations below the level of detection of the test. Care should be taken when interpreting any single viral load determination. This test should not be used for blood donor screening, associated re-entry protocols, or for screening Human Cell, Tissues and Cellular Tissue-Based Products (HCT/P). HCV RNA IU/mL 110 () IU/mL 05/18/2016 7:33 AM [employer] [email or web address] HISTORICAL RESULTS HCV RNA result Detected( H) Not Detected 05/18/2016 7:33 AM [email or web address] HISTORICAL RESULTS HCV RNA See Note () 05/18/2016 7:33 AM CDT [email or web address] HISTORICAL RESULTS Comment: [employer] Enhanced Report using either link below: -Direct access: [email or web address] -Enter Username, Password: [email or web address] Username: [email or web address] Password: [email or web address] Performed by [facility], [address] [place] [id number] [email or web address], [place]ico Quevedo MD, Lab. Director 05/13/2016 9:11 AM CDT 05/13/2016 9:22 AM CDT us Janis Vasquez NP LAB MICROBIOLOGY - GENERAL ORDERABLES Final Result Performing Organization Address [facility]/ZIP Co de Phone Number [facility] [employer] HISTORICAL RESULTS * Occult blood, fecal non neoplasm screening (05/01/2016 10:10 AM CDT) Stool Occult Blood NEGATIVE NEGATIVE 05/01/2016 12:14 PM CDT [facility] [employer] HISTORICAL RESULTS 05/01/2016 10:1 0 AM CDT 05/01/2016 11:57 AM CDT Narrative [facility] [employer] HISTORICAL RESULTS - 05/01/2016 12:14 PM CDT Collected By us Anthony Zamudio MD LAB BODY FLUIDS AND ST OOLS ORDERABLES Final Result [facility] [employer] HISTORICAL RESULTS from Last 3 Months or Most Recently Relevant to Health Maintenance Insurance [facility] MEDICARE ADVANTAGE Member Subscriber Plan / Payer (Ef fective 2021-Present) Name:Guero Ahmadi Relation to Subscriber:Self Name:Guero Ahmadi Payer ID:[id number] (NAIC) Type:UHC MEDICARE Address: [place] [id number] [employer] MEDICARE ADVANTAGE Advance Directives For more information, please contact: [phone] * Full Code (Latest Code Status on File) Date Activated Date Inactivated Comments 03/14/2024 7:36 AM 03/15/2024 5:19 AM * Full Code Date Activated Date Inactivated Comments 01/09/2024 7:17 AM 01/10/2024 5:19 AM * Full Code Date Activated Date Inactivated Comments 08/30/2023 6:02 PM 09/02/2023 2:53 PM * Full Code Date Activated Date Inactivated Comments 08/30/2023 5:13 PM 08/30/2023 6:02 PM * Full Code Date Activated Date Inactivated Comments 08/11/2023 11:04 AM 08/12/2023 2:30 PM Care Teams Hvac Project Engineer Relationship Specialty Start Date End Date Monae Velasquez MD [address] [place] [address] PCP - General Family Practice 12/14/22 Mushtaq Blake MD Medical Oncologist/Hematologi st Hematology and Oncology 09/09/22 Miguel Ángel Sanchez MD [address] [place] [place] [address] Consulting Physician Radiation Oncology 12/09/22 Emelyn Curtis MD [address] DIV IM MEDICAL ONCOLOGY, [address] [place] [address] Consulting Physician Medical Oncology 04/17/23 Heena Stephenson MD [address] [place] [address] Fellow General Surgery 04/17/23 Jeffery Bro MD [address] [place] [address] Referring Physician Gastroenterology 05/16/23 Anali Flores MD [address] [place] [address] Consulting Physician Cardiology 05/22/23 [place] [address] [place] [address] Nurse Practitioner Pain Management 05/22/23 [place] [address] [place] [address] Consulting Physician Interventional Radiology 03/14/24
--- OUTSIDE RECORDS SUMMARY | 2024-12-29 20:18 | XMS_ITS | Encounter Summary ---
Author Organization [facility] Address [address] 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 [address] [id number] Medication Refill Social History Tobacco [...] Telephone Encounter - Andrew Dawson MD - 05/12/2020 4:37 PM CDT Prescription pending signature * Telephone Encounter - Gabby Coto RN - 05/12/2020 12:25 PM CDT Refill pended documented in this encounter Plan of Treatment Not on file documented as of this encounter Visit Diagnoses Not on filedocumented in this encounter Additional Health Concerns Infection Onset Date Last Indicated Resolved Time COVID - 19 08/02/2021 08/02/2021 08/22/2021 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 COVID - 19 11/03/2021 11/03/2021 11/23/2021 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 Assessment Noted Time PHQ-9 Depression Total Score: 0 03/12/20 20 12:31 PM CDT documented as of this encounter Care Teams Egg Smeller Relationship Specialty Start Date End Date Andrew Dawson MD [address] [address] PCP - General Family Medicine 11/08/16 01/29/21 Vinicio Dinero MD [address] [place] [address] PCP - General Internal Medicine 01/30/21 07/26/21 Marisa Carcamo PAC [address] [place] [address] PCP - General Physician Cruise Counselor 07/27/21 12/25/24 Marisa Carcamo PAC [address] [place] [address] Physician Cruise Counselor Physician Cruise Counselor 01/30/21 documented as of this encounter
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
--- OUTSIDE RECORDS SUMMARY | 2024-12-29 20:18 | XMS_ITS | Encounter Summary ---
Author Organization [facility] Care Team Providers Care Rotary Drier Name Role Phone Andrew Dawson MD Primary Care Provider [phone] Andrew Dawson MD Primary Care Provider [phone] Vinicio Dinero MD Primary Care Provider [phone]- [phone] Mushtaq Blake MD Unavailable [phone] Miguel Ángel Sanchez MD Unavailable [phone] Monae Velasquez MD Primary Care Provider Emelyn Curtis MD Unavailable [phone] Heena Stephenson MD Unavailable [phone] Jeffery Bro MD Unavailable [phone] Anali Flores MD Unavailable [phone] Alessandro Dominguez NP Unavailable [phone] Luciano Rodriguez MD Unavailable Encounter Details Date Type Department Care Team (Latest Contact Info) Description 07/02/2016 Orders Only [facility] CLINCONV Provider, MD Sourav [address] [place] [address] Social History Tobacco Use Types Packs/Day Years Used Date Smoking Tobacco: Never Assessed Sex and Gender Information Value Date Recorded Sex Assigned at Not on file Legal Sex Male 2:00 AM ACCOUNTANT BUDGET Gender Identity Not on file Sexual Orientation [...] documented as of this encounter Care Teams Rotary Drier Relationship Specialty Start Date End Date Andrew Dawson MD PCP - General Cardiology 12/10/18 10/23/19 Andrew Dawson MD [address] [address] PCP - General Family Medicine 10/24/19 10/19/21 Vinicio Dinero MD [address] [place] [address] PCP - General Internal Medicine 10/20/21 12/13/22 Monae Velasquez MD [address] [place] [address] PCP - General Family Practice 12/14/22 Mushtaq Blake MD [address] [place] [address] Medical Oncologist/Hematologi st Hematology and Oncology 09/09/22 Miguel Ángel Sanchez MD [address] [place] [address] Consulting Physician Radiation Oncology 12/09/22 Emelyn [place] MD [address] DIV IM MEDICAL ONCOLOGY, [address], [address], [address] [place] [address] Consulting Physician Medical Oncology 04/17/23 Heena Stephenson MD [address] [place] [address] Fellow General Surgery 04/17/23 Jeffery Bro MD [address] [facility] [address] [place] [id number] Referring Physician Gastroenterology 05/16/23 Anali Flores MD [address] [facility] [address] [place] [address] Consulting Physician Cardiology 05/22/23 Alessandro Dominguez SILVERWARE BUFFING MACHINE OPERATOR [address] [place] [address] Nurse Practitioner Pain Management 05/22/23 [place] [address] [place] [address] Consulting Physician Interventional Radiology 03/14/24 documented as of this encounter
--- OUTSIDE RECORDS SUMMARY | 2024-12-29 20:18 | XMS_ITS | Encounter Summary ---
Author Organization [facility] Address [address] [place] [address] Phone Care Team Providers Care Terminal Operator Name Role Phone Andrew Dawson MD Primary Care Provider Vinicio Dinero MD Primary Care Provider [phone] Marisa Carcamo PAC Unavailable Marisa Carcamo PAC Primary Care Pro vider Reason for Visit * Reason Comments Medication Refill Encounter Details Date Type Department Care Team (Late st Contact Info) Description 12/21/2020 Refill [facility] [address] [place] [address] Andrew Dawson MD [address] [address] Medication Refill Social History Tobacco Use Types [...] have Coronavirus / COVID-19? No / Unsure 12/22/2020 1:04 PM CDT documented as of this encounter Miscellaneous Notes * Telephone Encounter - Stephanie Hollis RMA - 12/22/2020 8:32 AM CDT Left voicemail to return call to schedule * Telephone Encounter - Keerthi Moore RN - 12/21/2020 4:26 PM CDT Patient needs appointment per Dr Dawson * Telephone Encounter - Keerthi Mooer RN - 12/21/2020 3:07 PM CDT Quantity does not match SIG - quantity should be #30 Last fill 11/23/20 Medication failed the protocol, provider to review and approve the medication order if appropriate. Requested Prescriptions Pending Prescriptions Disp Refills ALPRAZolam (XANAX) 0.5 MG Tablet [Pharmacy Med Name: ALPRAZOLAM 0.5 MG TABLET] 45 Tablet 0 Sig: TAKE HALF A TABLET BY MOUTH TWO TIMES DAILY NEEDED FOR ANXIETY Not Delegated - Psychiatry: Anxiolytics/Hypnotics Failed - 12/21/2020 3:06 PM Failed - This refill cannot be delegated Passed - Valid encounter within last 6 months Past Office Visits Recent Outpatient Visits 3 months ago Anxiety [facility] - [facility] APN, NURSE COMPANION 7 months ago Chronic atrial fibrillation (HCC) [facility] - Andrew Lopez MD 8 months ago Chronic atrial fibrillation (HCC) [facility] - [place] APN NURSE COMPANION 8 months ago Tachycardia [facility] - [place] APN, NURSE COMPANION 9 months ago Chronic bilateral low back pain without sciatica [facility] - Andrew Lopez MD Upcoming Appointments 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 FISH 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 - Recent and Past Visits Recent Visits Date Type Provider Dept 08/28/20 Office Visit [place] [place] APN, NURSE COMPANION [facility] 05/12/20 Office Visit Andrew Dawson MD [facility] 04/17/20 Office Visit [place] APN, NURSE COMPANION [facility] 04/15/20 Office Visit [place] APN, NURSE COMPANION [facility] 03/12/20 Office Visit Andrew Dawson MD [facility] 01/08/20 Telemedicine Andrew Dawson MD [facility] 12/31/19 Telemedicine Andrew Dawson MD [facility] 10/09/19 Office Visit [place] APN, NURSE COMPANION [facility] [place] Showing recent visits within past 460 days [...] 19 08/02/2021 08/02/2021 08/22/2021 12:1 6 AM CHILD CARE COVID - 19 11/03/2021 11/03/2021 11/23/2021 12:1 6 AM CHILD CARE Assessment Noted Time PHQ-9 Depression Total Score: 0 08/28/20 11:08 AM CHILD CARE documented as of this encounter Care Teams Terminal Operator Relationship Specialty Start Date End Date Andrew Dawson MD [address] [address] PCP - General Family Medicine 11/08/16 01/29/21 Vinicio Dinero MD [address] [place] [address] PCP - General Internal Medicine 01/30/21 07/26/21 Marisa Carcamo, PAC [address] [place] [address] PCP - General Physician Race Engine Builder 07/27/21 12/25/24 Marisa Carcamo, PAC [address] [place] [address] Physician Race Engine Builder Physician Race Engine Builder 01/30/21 documented as of this encounter
--- OUTSIDE RECORDS SUMMARY | 2024-12-29 20:18 | XMS_ITS | Encounter Summary ---
Author Organization [facility] Address [address] [place] [address] Phone Care Team Providers Care Purchasing And Claims Supervisor Name Role Phone Andrew Dawson MD Primary Care Provider [phone] Vinicio Dinero MD Primary Care Provider [phone] Marisa Carcamo PAC Unavailable Marisa Carcamo PAC Primary Care Pro vider Reason for Visit * Reason Comments Medication Refill Encounter Details Date Type Department Care Team (Late st Contact Info) Description 10/05/2020 Refill [facility] [address] [place] [address] Andrew Dawson MD [address] [address] Medication Refill Social History Tobacco Use Types [...] Telephone Encounter - Andrew Dawson MD - 10/06/2020 12:01 PM CST Prescription pending signature [facility] * Telephone Encounter - Tatiana Em RN - 10/05/2020 4:26 PM CST Sent to PCP [facility] * Telephone Encounter - Tatiana Em RN - 10/05/2020 4:23 PM CST Per nursing clinical judgement, provider to review and approve the medication(s) order(s) if appropriate. Is this 30 pills suppose to last 15 days or 30 days please clarify. Last fill 09/23/20 directions take twice day prn. Last OV 08/28/20, F/U None Tatiana DEGROOT Requested Prescriptions Pending Prescriptions Disp Refills ALPRAZolam (XANAX) 0.5 MG Tablet [Pharmacy Med Name: ALPRAZOLAM 0.5 MG TABLET] 30 Tab 0 Sig: TAKE 1 TABLET BY MOUTH TWICE A DAY NEEDED FOR ANXIETY Not Delegated - Psychiatry: Anxiolytics/Hypnotics Failed - 10/05/2020 4:23 PM Failed - This refill cannot be delegated Passed - Valid encounter within last 6 months Past Office Visits Recent Outpatient Visits 1 month ago [facility] [place] [facility], BED TEACHER 4 months ago Chronic atrial fibrillation (HCC) [facility] - Andrew Lopez MD 5 months ago Chronic atrial fibrillation (HCC) [facility] - [facility] [place] APN, BED TEACHER 5 months ago Tachycardia [facility] [place] APN, BED TEACHER 6 months ago Chronic bilateral low back pain without sciatica [facility] Andrew Lindquist MD Upcoming Appointments EXECUTIVE ADMINISTRATOR - Recent and Past Visits Recent Visits Date Type Provider Dept 08/28/20 Office Visit [facility] APN, BED TEACHER [facility] 05/12/20 Office Visit Andrew [facility] MD [facility] 04/17/20 Office Visit [place] APN, BED TEACHER [facility] [place] 04/15/20 Office Visit [place] APN, BED TEACHER [facility] [place] 03/12/20 Office Visit Andrew Dawson MD [facility] [place] 01/08/20 Telemedicine Andrew Dawson MD [facility] 12/31/19 Telemedicine Andrew Dawson MD [facility] 10/09/19 Office Visit [place] APN, BED TEACHER [facility] [place] 09/02/19 Office Visit Andrew Dawson MD [facility] 08/26/19 Office Visit Sánchez Jenkins APN, BED TEACHER [facility] Showing recent visits within past 460 days with a meds authorizing provider and meeting all other requirements Future Appointments No visits were found meeting these conditions. Showing future appointments within next 90 days with a meds authorizing provider and meeting all other requirements [facility] documented in this encounter Plan of Treatment Not on file documented as of this encounter Visit Diagnoses Diagnosis Anxiety Anxiety state, unspecified documented in this encounter Additional Health Concerns Infection Onset Date Last Indicated Resolved Time COVID - 19 08/02/2021 08/02/2021 08/22/2021 12:1 6 AM MANAGER ED COVID - 19 11/03/2021 11/03/2021 11/23/2021 12:1 6 AM MANAGER ED Assessment Noted Time PHQ-9 Depression Total Score: 0 08/28/20 11:08 AM MANAGER ED documented as of this encounter Care Teams Purchasing And Claims Supervisor Relationship Specialty Start Date End Date Andrew Dawson MD [address] [address] PCP - General Family Medicine 11/08/16 01/29/21 Vinicio Dinero MD [address] [place] [address] PCP - General Internal Medicine 01/30/21 07/26/21 Marisa Carcamo PAC [address] [place] [address] PCP - General Physician Senior Ux Developer 07/27/21 12/25/24 Marisa Carcamo, PAC [address] [place] [address] Physician Senior Ux Developer Physician Senior Ux Developer 01/30/21 documented as of this encounter
--- OUTSIDE RECORDS SUMMARY | 2024-12-29 20:18 | XMS_ITS ---
Author Organization [facility] [address] Address [address] [place] [address] Care Team Providers Care Pressurization Mechanic Name Role Phone Mushtaq Blake MD Unavailable [phone] Miguel Ángel Sanchez MD Unavailable [phone] Monae Velasquez MD Primary Care Provider Emelyn Curtis MD Unavailable [phone] Heena Stephenson MD Unavailable [phone] Jeffery Bro MD Unavailable [phone] Anali Flores MD Unavailable [phone] Alessandro Dominguez NP Unavailable [phone] Luciano Rodriguez MD Unavailable Active Problems Problem Noted Date Diagnosed Date [...] SSS, Afib, AV Node Ablation. DOI [facility]11[facility]20[facility] [place] [facility]. Sick sinus syndrome 07/20/2023 Assessment & Plan (12/11/2023 6:00 PM CDT): Chronic. Status post pacemaker. Stable. Continue care per cardiology and electrophysiology Assessment & Plan (08/10/2023 5:04 PM SAFETY SPEC): Patient has a degree of persistent bradycardia [...] mirtazapine Assessment & Plan (08/10/2023 5:04 PM SAFETY SPEC): Chronic. Continue the buspirone and mirtazapine. They [...] specialist Assessment & Plan (08/10/2023 5:03 PM SAFETY SPEC): Chronic. Per recent notes from Oncology and [...] constipation Assessment & Plan (08/10/2023 5:03 PM SAFETY SPEC): Chronic back pain syndrome. Saw pain management [...] management Assessment & Plan (08/10/2023 5:02 PM SAFETY SPEC): Chronic. Struggles with chronic pain. Was previously [...] management Assessment & Plan (08/10/2023 5:02 PM SAFETY SPEC): Status post prior transaortic valve replacement. Care per Cardiology Chronic diastolic CHF (congestive heart failure) 01/21/2021 Assessment & Plan (03/18/2024 5:22 PM CDT): Chronic. Compensated. Continue current medication. Monitor Assessment & Plan (12/11/2023 5:55 PM CDT): Chronic. Compensated. Continue current prescription medication Assessment & Plan (08/10/2023 5:02 PM SAFETY SPEC): Chronic. Compensated. Continue medication and care per Cardiology Persistent atrial fibrillation 01/20/2021 Assessment & Plan (03/18/2024 5:22 PM CDT): Chronic. Controlled. Continue beta-carlene and anticoagulation. Monitor Assessment & Plan (12/11/2023 5:55 PM CDT): Chronic. Stable. Continue current prescription medication. Continue anticoagulation for stroke prevention Assessment & Plan (08/10/2023 5:01 PM SAFETY SPEC): Chronic. Follows with cardiology. Has plans for upcoming cardiac ablation and placement of pacemaker. Continue medication and care per Cardiology Chronic anticoagulation 02/19/2020 Assessment & Plan (03/18/2024 5:21 PM CDT): Chronic. Bleeding precautions recommended. Assessment & Plan (12/11/2023 5:54 PM CDT): Chronic no signs of spontaneous bleeding. Continue anticoagulation for stroke prevention. Bleeding precautions recommended Assessment & Plan (08/10/2023 5:01 PM SAFETY SPEC): Chronic due to AFib. Discussed bleeding precautions. [...] counseling Assessment & Plan (08/10/2023 5:01 PM SAFETY SPEC): Chronic. Counseled to quit. Reviewed health risks Chronic bilateral low back pain without sciatica 01/18/2017 Assessment & Plan (08/10/2023 5:04 PM SAFETY SPEC): Chronic. Needs to follow up with pain management Panlobular emphysema 11/09/2016 Assessment & Plan (03/18/2024 5:24 PM CDT): Chronic. Breathing is stable. Continue breztri Assessment & Plan (12/11/2023 5:56 PM CDT): Chronic. Uncontrolled. Needs improvement. Noncompliant with inhalers. Restart BReztri. Stressed importance of smoking cessation. No signs of acute exacerbation Assessment & Plan (08/10/2023 5:00 PM SAFETY SPEC): Chronic. Uncontrolled. Noncompliant with inhalers. Stressed importance of taking breast true regularly. Previously did not like any of the powdered inhalers. Still smoking. Patient will be referred to alternative monitoring and evaluation advisor for management as he does not want to go to his previous 1 at [facility] Dyslipidemia 09/30/2016 Assessment & Plan (03/18/2024 5:23 PM CDT): Chronic. Tolerates atorvastatin. Continue. 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 They defer for today Assessment & Plan (12/11/2023 5:58 PM CDT): Chronic. Stable. Continue atorvastatin Assessment & Plan (08/10/2023 5:05 PM SAFETY SPEC): Chronic. Encouraged to continue his atorvastatin for [...] decompensation Assessment & Plan (08/10/2023 5:04 PM SAFETY SPEC): Patient has a chronic degree of mild nonocclusive coronary artery disease. Encouraged to continue statin for primary prevention as long as he is tolerating Current Treatment and Therapy Plans Hydration Therapy Plan* Plan Start Date:04/20/2023 Plan Provider:Miguel Ángel Sanchez MD Linked Problems Hepatocellular carcinoma (HC C) Treatment Medications No medications scheduled. Past Treatment and Therapy Plans No past plan information found. Radiation Treatments * Course C1 02/07/2023 - 03/10/2023 Treatment Period Energy Fraction Dose Fractions Total Dose Plans Planned Med LL Liver 02/07/2023 - 03/10/2023 400 18 / 10,000 Reference Points Delivered DVP_Med LL Liver 02/07/2023 - 03/10/2023 7,200 Lifetime Dose Tracking * Chemical Lifetime Dose Automatic Entry Manual Entr y Fluoro Time 75.033 minutes 75.033 minutes 0 minutes Air kerma at the reference point (Ka,r) 5,438.518 mGy 5,033.148 mGy 405.37 mGy Resolved Problems Problem Noted Date Diagnosed Date [...] nightly Assessment & Plan (08/10/2023 5:01 PM SAFETY SPEC): Chronic, intermittent hypoxemia. Has supplemental oxygen at night. Has been followed by pulmonology but wishes to switch to closer monitoring and evaluation advisor Leg edema 10/31/2022 11/16/2022 Discomfort of left groin 10/31/2022 History of COVID-19 05/23/2022 11/16/19 23 Bruising 05/02/2022 11/16/2022 Stage 3a chronic kidney disease 04/25/2022 09/12/2023 Nontraumatic compression fra cture of L1 vertebra 03/04/2022 11/16/2022 Overview (11/16/2022): 01/2022 on MRI Cervical post-laminectomy syndrome 12/07/2021 09/12/2023 Shortness of breath 01/21/2021 05/10/20 23 Hypotension due to drugs 01/19/2021 CKD (chronic kidney disease) 01/19/2021 04/25/2022 Medication monitoring encounter 01/19/2021 09/12/2023 Typical atrial flutter (CMS/HCC) 02/19/2020 11/16/2022 Chronic chest pain 02/19/2020 3 Dizziness 02/19/2020 11/16/2022 Other emphysema 02/19/2020 08/10/2023 History of atrial fibrillation 02/19/2020 10/20/2021 Mixed conductive and sensori neural hearing loss of both ears 05/16/2017 09/12/2023
--- OUTSIDE RECORDS SUMMARY | 2024-12-29 20:18 | XMS_ITS | Encounter Summary ---
Author Organization [facility] Healthcare Address [address] [place] [address] Care Team Providers Care Hand Slitter Name Role Phone Mushtaq Blake MD Unavailable [phone] Miguel Ángel Sanchez MD Unavailable [phone] Monae Velasquez MD Primary Care Provider Emelyn Curtis MD Unavailable [phone] Heena Stephenson MD Unavailable [phone] Jeffery Bro MD Unavailable [phone] Anali Flores MD Unavailable [phone] Alessandro Dominguez NP Unavailable [phone] Luciano Rodriguez MD Unavailable Encounter Details Date Type Department Care Team (Late st Contact Info) Description 01/04/2024 Telephone [facility] Primary Care at [address] [address] Monae Velasquez MD [address] [place] [address] [address] [place] [address] Social History Tobacco Use Types Packs/Day Years Used Date Smoking Tobacco: Every Day Cigarettes 1.5 50 Smokeless Tobacco: Never Comments:At least a pack a d ay Alcohol Use Standard Drinks/Week Comments Not Currently 0 (1 standard drink = 0.6 oz pur e alcohol) [facility] Utilities Answer Date Recorded In the past 12 months has th e electric, gas, oil, or water company threatened [...] often do you attend chur ch or taoist services? Never 08/31/2023 Do you belong to any clubs o r organizations such as samaritan groups, unions, fraternal or athletic groups, or school groups? No 08/31/2023 How often do you attend meet ings of the clubs or organizations you belong to? Never 08/31/2023 Are you , , di vorced, , never , or living with a partner? 08/31/2023 AUDIT-C Answer Date Recorded Q1: How often do you have a drink containing alc ohol? Monthly or less 08/11/2023 Q2: How many drinks containi ng alcohol do you have on a typical day when you are drinking? 1 or 2 08/11/2023 Q3: How often do you have si x or more drinks on one occasion? Never 08/11/2023 Overall Financial Resource Strain (CARDIA) Answe r [...] making you feel afraid or unsafe? Denies 08/30/2023 Sex and Gender Information Value Date Recorded Sex Assigned at Not on file Legal Sex Male 2:00 AM CASH MANAGEMENT OFFICER Gender Identity Not on file Sexual Orientation [...] Date Last Indicated Resolved Time COVID: Suspected 03/04/2024 03/04/2024 03/04/2024 4:06 PM CDT documented as of this encounter Care Teams Hand Slitter Relationship Specialty Start Date End Date Monae Velasquez MD [address] DEPT [place] [address] PCP - General Family Practice 12/14/22 Mushtaq Blake MD Medical Oncologist/Hematologi st Hematology and Oncology 09/09/22 Miguel Ángel Sanchez MD [address] DEPT [place] [address] Consulting Physician Radiation Oncology 12/09/22 Emelyn Curtis MD [address] DIV IM MEDICAL ONCOLOGY, [address], [address] [place] [address] Consulting Physician Medical Oncology 04/17/23 Heena Stephenson MD [address] [place] [address] Fellow General Surgery 04/17/23 Jeffery Bro MD [address] [place] [address] Referring Physician Gastroenterology 05/16/23 RadhaAnali valdez MD [address] [place] [address] Consulting Physician Cardiology 05/22/23 [place] [address] [place] [address] Nurse Practitioner Pain Management 05/22/23 [place] [address] [place] [address] Consulting Physician Interventional Radiology 03/14/24 documented as of this encounter
--- OUTSIDE RECORDS SUMMARY | 2024-12-29 20:18 | XMS_ITS | Encounter Summary ---
Author Organization [facility] Address [address] [place] [address] Phone Care Team Providers Care Film Mounter Name Role Phone Marisa Carcamo PAC Primary Care Pro vider Reason for Visit * Reason Comments Medication Refill Encounter Details Date Type Department Care Team (Late st Contact Info) Description 05/23/2022 Refill [facility] - Internal Medicine - [place] [address] [place] [address] Marisa Carcamo, [facility] [address] [place] [address] Medication Refill Social History Tobacco [...] Telephone Encounter - Rosi Bridges RN - 05/23/2022 3:19 PM CDT Medication failed the protocol, provider to review and approve the medication order if appropriate. Requested Prescriptions Pending Prescriptions Disp Refills busPIRone (BUSPAR) 5 MG Tablet [Pharmacy Med Name: BUSPIRONE HCL 5 MG TABLET] 180 Tablet 0 Sig: TAKE 1 TABLET BY MOUTH TWICE A DAY Buspirone (6 Month Refill Only) Protocol Failed - 05/23/2022 12:03 AM Failed - Visit with relevant provider in past 6 months or upcoming 90 days Recent Visits No visits were found meeting these conditions. Showing recent visits within past 182 days and meeting all other requirements Future Appointments No visits were found meeting these conditions. Showing future appointments within next 90 days and meeting all other requirements Failed - Has an encounter in the past 6 months with a depression or anxiety visit diagnosis Passed - Patient has established therapy with Buspirone for at least 6 months documented in this encounter Plan of Treatment Not on file documented as of this encounter Visit Diagnoses Diagnosis Anxiety Anxiety state, unspecified documented in this encounter Additional Health Concerns Assessment Noted Time PHQ-9 Depression Total Score: 11 021 3:00 PM MACHINE II ENGRAVER documented as of this encounter Care Teams Film Mounter Relationship Specialty Start Date End Date Marisa Carcamo PAC [address] [place] [address] PCP - General Physician Collection Support Specialist 07/27/21 12/25/24 documented as of this encounter
--- OUTSIDE RECORDS SUMMARY | 2024-12-29 20:18 | XMS_ITS | Clinical Summary ---
Author Organization [facility] Address [address] [place] [address] Phone Care Team Providers Care Mill Recorder Name Role Phone Unavailable Primary Care Provider Unavailabl e Allergies Active Allergy Reactions Criticality Noted Date Comments Albuterol Anxiety 01/15/2019 tremors Liothyronine Unknown 10/07/2013 Umeclidinium Cough 09/06/2019 choking choking Medications metoprolol tartrate (LOPRESSOR) 25 mg tablet Take 12.5 mg by mouth daily. Active omeprazole (PriLOSEC) 20 mg Capsule, Delayed Release(E.C.) Take 20 mg by mouth daily. Active sertraline (ZOLOFT) 50 mg tablet Take 50 mg by mouth daily. Active diltiaZEM (CARDIZEM) 120 mg Tablet Take 120 mg by mouth every 12 hours. Active apixaban (Eliquis) 5 mg tablet Take 5 mg by mouth 2 times daily. Active atorvastatin (LIPITOR) 20 mg tablet Take 20 mg by mouth daily at bedtime. Active calcium-choleca lciferol (OS-UMM 500+D) 500 mg(1,250mg) -200 unit tablet Take 1 Tablet by mouth daily. Active cyclobenzaprine (FLEXERIL) 5 mg Tablet Take 1 Tablet by mouth 3 times daily as needed for Spasm. 30 Tablet 10/17/2019 10:54 AM BRANDS EDITOR 0 Active Lidocaine 4 % Adhesive Patch, Medicated Apply 1 patch only once for up to 12 hours within a 24 hour period to Left side of chest over area of most discomfort 10 Patch 10/17/2019 10:54 AM BRANDS EDITOR 0 Active Active Problems Problem Noted Date Diagnosed Date Chest pain, musculoskeletal 10/17/2019 Chronic atrial flutter 10/17/2019 Benign essential HTN 10/17/2019 Immunizations Immunization Administration Dates Next Due (ADACEL/BOOSTRIX)(10 YR UP) TDAP VACCINE, 0.5ML, IM 06/26/2018,12/06/2013 INFLUENZA VACCINE QUADRIVALE NT 6 MOS UP PF IM 08/20/2019,08/20/2018,07/10/2017 Influenza Seasonal Unspecifi ed Formulation IM 08/07/2019,06/28/2016 Influenza Vaccine Tri Split 4+ Im 2018,08/20/2018,07/10/2017,06/28 Pneumococcal Polysaccharide Vacc 23-sophie IM SCHIP 08/20/2018 Social History Tobacco Use Types Packs/Day Years Used Date Smoking Tobacco: Every Day Cigarettes 1 35 Smokeless Tobacco: Never Alcohol Use Standard Drinks/Week Comments Yes 0 (1 standard drink = 0.6 oz pur e alcohol) Sex and Gender Information Value Date Recorded Sex Assigned at Not on file Legal Sex Male 10:17 PM CDT Gender Identity Not on file Sexual Orientation Not on file Last Filed Vital Signs Vital Sign Reading Time Taken Comments Blood Pressure 102/69 10/17/2019 8:32 AM BRANDS EDITOR Pulse 63 10/17/2019 8:32 AM BRANDS EDITOR Temperature 36.8 C (98.2 F) 10/17/2019 8:32 AM BRANDS EDITOR Respiratory Rate 13 10/17/2019 8:32 AM BRANDS EDITOR Oxygen Saturation 93% 10/17/2019 8:32 AM BRANDS EDITOR Inhaled Oxygen Concentration - - Weight 68.2 kg (150 lb 4.8 oz) 10/17/2019 2:47 A M BRANDS EDITOR Height 172.7 cm (5' 8 ) 10/17/2019 2:47 AM BRANDS EDITOR Body Mass Index 22.85 10/17/2019 2:47 AM BRANDS EDITOR Plan of Treatment Health Maintenance Due Date Last Done Comments COLORECTAL SCREENING 1999 Colorectal Cancer Screening 1999 FIT-DNA Q 3 years 1999 FIT/FOBT Q 1 year 1999 Flex Sig/CT Colonography Q 5 years 1999 ZOSTER VACCINE (1 of 2) 2004 RSV VACCINE (60+ or ) (1 - Risk 60-74 years 1-dose series) 2014 PNEUMOCOCCAL VACCINE 50+ YEA RS (2 of 2 - PCV) 08/20/2019 08/20/2018, 09/25/2011 INFLUENZA VACCINE (#1) 2024 2, 08/28/2020, 08/20/2019, Additional history exists DTAP/TDAP/TD VACCINES (3 - T d or Tdap) 06/26/2028 06/26/2018, 12/06/2013 Insurance [place]ICAID [place] RX [employer] RX Member Subscriber Plan / Payer (Ef fective 2019-Present) Name:Galdino Guero D Relation to Subscriber:Self Name:GaldinoGuero Umm Payer ID:Not on file Group ID:[id number] Type:RX Medicare Part D Address: [employer] PLANS (INTERNAL) [facility]
--- OUTSIDE RECORDS SUMMARY | 2024-12-29 20:18 | XMS_ITS | Encounter Summary ---
Author Organization [facility] Address [address] [place] [address] Phone Care Team Providers Care Prop Setter Name Role Phone Chiquis Carcamoney Jerrica PAC Primary Care Pro vider Reason for Visit * Reason Comments Medication Refill Encounter Details Date Type Department Care Team (Late st Contact Info) Description 05/23/2022 Refill [facility] - Family Medicine [facility] [address] [place] [address] Andrew Dawson MD [address] [address] Medication Refill Social History Tobacco Use Types [...] Encounter - Rosi Bridges RN - 05/23/2022 4:48 PM CDT Medication failed the protocol, provider to review and approve the medication order if appropriate. Requested Prescriptions Pending Prescriptions Disp Refills tamsulosin (FLOMAX) 0.4 MG Capsule [Pharmacy Med Name: TAMSULOSIN HCL 0.4 MG CAPSULE] 90 Capsule 3 Sig: TAKE 1 CAPSULE BY MOUTH EVERY DAY 30 MINS AFTER A MEAL Benign Prostatic Hyperplasia Medications Protocol Failed - 05/23/2022 7:59 AM Failed - Visit with relevant provider in past 12 months or upcoming 90 days Recent Visits Date Type Provider Dept 11/15/21 Office Visit Marisa Carcamo PAC [facility] 11/08/21 Office Visit Marisa Carcamo PAC [facility] 08/02/21 Office Visit Marisa Carcamo PAC [facility] 06/04/21 Office Visit Marisa Carcamo PAC [facility] Showing recent visits within past 365 days and meeting all other requirements Future Appointments No visits were found meeting these conditions. Showing future appointments within next 90 days and meeting all other requirements documented in this encounter Plan of Treatment Not on file documented as of this encounter Visit Diagnoses Not on filedocumented in this encounter Additional Health Concerns Assessment Noted Time PHQ-9 Depression Total Score: 11 021 3:00 PM SELF RISING FLOUR MIXER documented as of this encounter Care Teams Prop Setter Relationship Specialty Start Date End Date Marisa Carcamo PAC [address] [place] [address] PCP - General Physician Sheet Metal Contractor 07/27/21 12/25/24 documented as of this encounter
--- OUTSIDE RECORDS SUMMARY | 2024-12-29 20:18 | XMS_ITS | Encounter Summary ---
Author Organization [facility] Facility Care Team Providers Care Personal Banking Officer Name Role Phone Andrew Dawson MD Primary Care Provider [phone] Andrew Dawson MD Primary Care Provider [phone] Vinicio Dinero MD Primary Care Provider [phone] Mushtaq Blake MD Unavailable [phone] Miguel Ángel Sanchez MD Unavailable [phone] Monae Velasquez MD Primary Care Provider Emelyn Curtis MD Unavailable [phone] Heena Stephenson MD Unavailable [phone] Jeffery Bro MD Unavailable [phone] Anali Flores MD Unavailable [phone] Alessandro Dominguez NP Unavailable [phone] Luciano Rodriguez MD Unavailable Encounter Details Date Type Department Care Team (Latest Contact Info) Description 11/18/2015 Orders Only [facility] Provider, MD Sourav [address] [place] [address] Social History Tobacco Use Types Packs/Day Years Used Date Smoking Tobacco: Never Assessed Sex and Gender Information Value Date Recorded Sex Assigned at Not on file Legal Sex Male 2:00 AM EDITORIAL SPECIALIST Gender Identity Not on file Sexual Orientation Not on file documented as of this encounter Plan of Treatment Not on file documented as of this encounter Procedures Procedure Name Priority Date/Time Associated Diagnosis Comments SCAN - LABS 11/18/2015 12:00 AM EDITORIAL SPECIALIST documented in this encounter Results * SCAN - LABS (11/18/2015 12:00 AM EDITORIAL SPECIALIST) Narrative 11/18/2015 12:00 AM EDITORIAL SPECIALIST Ordered by an unspecified provider. us Historical Provider Final Res ult documented in this encounter Visit Diagnoses Not on filedocumented in this encounter Additional Health Concerns Infection Onset Date Last Indicated Resolved Time COVID: Suspected 05/04/2023 05/04/2023 05/04/2023 8:26 PM CDT COVID: Suspected 03/04/2024 03/04/2024 03/04/2024 4:06 PM CDT documented as of this encounter Care Teams Personal Banking Officer Relationship Specialty Start Date End Date Andrew Dawson MD PCP - General Cardiology 12/10/18 10/23/19 Andrew Dawson MD [address] [address] PCP - General Family Medicine 10/24/19 10/19/21 Vinicio Dinero MD [address] [place] [address] PCP - General Internal Medicine 10/20/21 12/13/22 Monae Velasquez MD [address] [place] [address] PCP - General Family Practice 12/14/22 Mushtaq Blake MD [address] [place] [address] Medical Oncologist/Hematologi st Hematology and Oncology 09/09/22 Miguel Ángel Sanchez MD [address] [place] [address] Consulting Physician Radiation Oncology 12/09/22 Emelyn Curtis MD [address] DIV IM MEDICAL ONCOLOGY, [address] [place] [address] Consulting Physician Medical Oncology 04/17/23 Heena Stephenson MD [address] [place] [address] Fellow General Surgery 04/17/23 Jeffery Bro MD [address] [place] [address] Referring Physician Gastroenterology 05/16/23 Anali Flores MD [address] [facility] [address] [place] [address] Consulting Physician Cardiology 05/22/23 [place] [address] [place] [address] Nurse Practitioner Pain Management 05/22/23 [place] [address] [place] [address] Consulting Physician Interventional Radiology 03/14/24 documented as of this encounter
--- OUTSIDE RECORDS SUMMARY | 2024-12-29 20:18 | XMS_ITS | Encounter Summary ---
Author Organization [facility] Address [address] [place] [address] Phone Care Team Providers Care Senior Marketing Manager Name Role Phone Marisa Carcamo PAC Primary Care Pro vider Reason for Visit * Reason Comments Medication Refill Encounter Details Date Type Department Care Team (Late st Contact Info) Description 07/27/2022 Refill [facility] - Internal Medicine - [place] [address] [place] [address] Marisa Carcamo, [facility] [address] [place] [address] Medication Refill Social History Tobacco [...] Telephone Encounter - Rosi Bridges RN - 07/27/2022 12:15 PM CDT Medication failed the protocol, provider to review and approve the medication order if appropriate. Requested Prescriptions Pending Prescriptions Disp Refills escitalopram (LEXAPRO) 10 MG Tablet [Pharmacy Med Name: ESCITALOPRAM 10 MG TABLET] 90 Tablet 0 Sig: TAKE 1 TABLET BY MOUTH EVERY DAY SSRI (6 Month Refill Only) Protocol Failed - 07/27/2022 9:17 AM Failed - Visit with relevant provider [...] adjustment disorder, OCD, or PTSD visit diagnosis Passed - Patient has established therapy with SSRI for at least 6 months documented in this encounter Plan of Treatment Not on file documented as of this encounter Visit Diagnoses Not on filedocumented in this encounter Additional Health Concerns Assessment Noted Time PHQ-9 Depression Total Score: 021 3:00 PM ACCOUNT DEVELOPMENT SPECIALIST documented as of this encounter Care Teams Senior Marketing Manager Relationship Specialty Start Date End Date Marisa Carcamo PAC [address] [place] [address] PCP - General Physician Horse Breaker 07/27/21 12/25/24 documented as of this encounter
--- OUTSIDE RECORDS SUMMARY | 2024-12-29 20:18 | XMS_ITS | Encounter Summary ---
Author Organization [facility] Address [address] [place] [address] Phone Care Team Providers Care Rug Touch Up Painter Name Role Phone Andrew Dawson MD Primary Care Provider [phone] Vinicio Dinero MD Primary Care Provider [phone] Marisa Carcamo PAC Unavailable Marisa Carcamo PAC Primary Care Pro vider Reason for Visit * Reason Onset Date Comments Medication Management 10/16/2020 transfer t o triage - see note Breathing Problem 10/16/2020 difficulties b reathing Altered Mental Status 10/16/2020 confusion Encounter Details Date Type Department Care Team (Late st Contact Info) Description 10/16/2020 Nurse Triage [facility] [address] [place] [address] Andrew Dawson MD #[address] [address] Medication Management (transfer to triage - see note ); Breathing Problem (difficulties breathing); Altered Mental Status (confusion) Social History Tobacco Use Types Packs/Day Years [...] COVID-19? No / Unsure 10/17/2020 2:[address] MACHINERY INSPECTOR documented as of this encounter Miscellaneous Notes * Telephone Encounter - Kari Rose RN - 10/16/2020 2:55 PM CST LVM on pt phone. Trying sister's phone. Sister states he will not go. States he will just lay over there and then, why won't he prescribe an antibiotic to just try to help him out. Also expresses concern of her brother's use of alprazolam. Note: she is not PRD. PRD states: none. Routing to PCP. MACHINERY INSPECTOR MACHINERY INSPECTOR * Telephone Encounter - Kari Rose RN - 10/16/2020 2:53 PM CST Call placed to patient with this message. MACHINERY INSPECTOR * Telephone Encounter - Andrew Dawson MD - 10/16/2020 9:06 AM CST Please call. No , I wont just order antibiotics. Go to ed to have yourself properly evaluated. MACHINERY INSPECTOR * Telephone Encounter - Itzel Dailey RN - 10/16/2020 8:15 AM CST Felisa calling (PRD not in chart) Patient went to [facility] last Monday, 2 days ago Had trouble breathing, felt terrible. Says he was in the ED for 3 hours, then he walked out to the waiting room. She is not sure he was even seen or had any testing done such as a covid test. Patient appears to be a Bit confused and has done that before with a UTI Right now is rattling in his chest. Is having difficulties breathing, very . This RN did not hear patient on the line in the background at this time. Advised daughter that patient needs to be evaluated with his symptoms and should go back to the ED. She says he will not go back to the hospital. She wants to know if provider will just order a Zpak or something like that because he obviously has an infection going on with his rattling and breathing .. Please advise. Thank you Pharmacy and allergies verified. MACHINERY INSPECTOR * Telephone Encounter - Damaris Fontaine - 10/16/2020 8:03 AM CST Felisa ( not on PRD) Call patient was in ER yesterday asking for an antibiotic for patient Transfer to triage line MACHINERY INSPECTOR documented in this encounter Plan of Treatment Not on file documented as of this encounter Visit Diagnoses Not on filedocumented in this encounter Additional Health Concerns Infection Onset Date Last Indicated Resolved Time COVID - 19 08/02/2021 08/02/2021 08/22/2021 12:[address] MACHINERY INSPECTOR COVID - 19 11/03/2021 11/03/2021 11/23/2021 12:[address] MACHINERY INSPECTOR Assessment Noted Time PHQ-9 Depression Total Score: 0 08/28/20 20 11:[address] MACHINERY INSPECTOR documented as of this encounter Care Teams Rug Touch Up Painter Relationship Specialty Start Date End Date Andrew Dawson MD #[address] [address] PCP - General Family Medicine 11/08/16 01/29/21 Vinicio Dinero MD [address] [place] [address] PCP - General Internal Medicine 01/30/21 07/26/21 Marisa Carcamo, PAC [address] [place] [address] PCP - General Physician Shoe Parts Molder 07/27/21 12/25/24 Marisa Carcamo, PAC [address] [place] [address] Physician Shoe Parts Molder Physician Shoe Parts Molder 01/30/21 documented as of this encounter
--- OUTSIDE RECORDS SUMMARY | 2024-12-29 20:18 | XMS_ITS | Encounter Summary ---
Author Organization [facility] Facility Care Team Providers Care Brickmason Helper Name Role Phone Andrew Dawson MD Primary Care Provider [phone] Andrew Dawson MD Primary Care Provider [phone] Vinicio Dinero MD Primary Care Provider [phone] Mushtaq Blake MD Unavailable [phone] Miguel Ángel Sanchez MD Unavailable [phone] Monae Velasquez MD Primary Care Provider Emelyn Curtis MD Unavailable [phone] Heena Stephenson MD Unavailable [phone] Jeffery Bro MD Unavailable [phone] Anali Flores MD Unavailable [phone] Alessandro Dominguez NP Unavailable [phone] Luciano Rodriguez MD Unavailable Encounter Details Date Type Department Care Team (Latest Contact Info) Description 02/15/2015 Orders Only [facility] Provider, MD Sourav [address] [place] [address] Social History Tobacco Use Types Packs/Day Years Used Date Smoking Tobacco: Never Assessed Sex and Gender Information Value Date Recorded Sex Assigned at Not on file Legal Sex Male 2:00 AM DOCUMENTATION WRITER Gender Identity Not on file Sexual Orientation Not on file documented as of this encounter Plan of Treatment Not on file documented as of this encounter Procedures Procedure Name Priority Date/Time Associated Diagnosis Comments SCAN - LABS 02/15/2015 12:00 AM CDT documented in this encounter Results * SCAN - LABS (02/15/2015 12:00 AM CDT) Narrative 02/15/2015 12:00 AM CDT Ordered by an unspecified provider. us Historical Provider Final Res ult documented in this encounter Visit Diagnoses Not on filedocumented in this encounter Additional Health Concerns Infection Onset Date Last Indicated Resolved Time COVID: Suspected 05/04/2023 05/04/2023 05/04/2023 8:26 PM CDT COVID: Suspected 03/04/2024 03/04/2024 03/04/2024 4:06 PM CDT documented as of this encounter Care Teams Brickmason Helper Relationship Specialty Start Date End Date Andrew Dawson MD PCP - General Cardiology 12/10/18 10/23/19 Andrew Dawson MD [address] [address] PCP - General Family Medicine 10/24/19 10/19/21 Vinicio Dinero MD [address] [place] [address] PCP - General Internal Medicine 10/20/21 12/13/22 Monae Velasquez MD [address] [place] [address] PCP - General Family Practice 12/14/22 Mushtaq Blake MD [address] [place] [address] Medical Oncologist/Hematologi st Hematology and Oncology 09/09/22 Miguel Ángel Sanchez MD [address] [place] [address] Consulting Physician Radiation Oncology 12/09/22 Emelyn Curtis MD [address] DIV IM MEDICAL ONCOLOGY, [address], 7B, 7C [place] [address] Consulting Physician Medical Oncology 04/17/23 Heena Stephenson MD [address] [place] [address] Fellow General Surgery 04/17/23 Jeffery Bro MD [address] [facility] [address] [place] [id number] Referring Physician Gastroenterology 05/16/23 Anali Flores MD [address] [facility] [address] [place] [address] Consulting Physician Cardiology 05/22/23 Alessandro Dominguez RESIDENT CARE TECHNICIAN [address] [place] [address] Nurse Practitioner Pain Management 05/22/23 [place] [address] [place] [address] Consulting Physician Interventional Radiology 03/14/24 documented as of this encounter
--- OUTSIDE RECORDS SUMMARY | 2024-12-29 20:18 | XMS_ITS | Encounter Summary ---
Author Organization [facility] Address [address] [place] [address] Phone Care Team Providers Care Hospitalist Name Role Phone Andrew Dawson MD Primary Care Provider [phone] Vinicio Dinero MD Primary Care Provider [phone] Marisa Carcamo PAC Unavailable Marisa Carcamo PAC Primary Care Pro vider Reason for Visit * Reason Comments Medication Refill alprazolam Encounter Details Date Type Department Care Team (Late st Contact Info) Description 07/27/2020 Refill [facility] [address]2 [place] [address] Andrew Dawson MD #[address] [address] Medication Refill (alprazolam) Social History Tobacco Use Types Packs/Day Years [...] encounter Miscellaneous Notes * Telephone Encounter - Angeles Reid - 07/29/2020 1:07 PM CST Patient can take this 1-2 times a day. He only gets a 15 day supply. He last got this script on 07/09/2020. Rx pended for your review and approval. Thank you. GISEL Reynoso MA Loading Unit Operator Powder Charging - Medication Management KER AND PACKER * Telephone Encounter - Kari Rose RN - 07/28/2020 1:47 PM CST Medication failed the protocol, provider to review and approve the medication order if appropriate. Last OV 05/12/2020, no additional OV scheduled for future. Requested Prescriptions Pending Prescriptions Disp Refills ALPRAZolam (XANAX) 0.5 MG Tablet [Pharmacy Med Name: ALPRAZOLAM 0.5 MG TABLET] 30 Tab 0 Sig: TAKE 1 TABLET BY MOUTH 2 TIMES DAILY NEEDED FOR ANXIETY. Not Delegated - Psychiatry: Anxiolytics/Hypnotics Failed - 07/27/2020 12:10 PM Failed - This refill cannot be delegated Passed - Valid encounter within last 6 months Past Office Visits Recent Outpatient Visits 2 months ago Chronic atrial fibrillation (HCC) [facility] Family Medicine - Andrew Lopez MD 3 months ago Chronic atrial fibrillation (HCC) [facility] Family [facility] - Sera William APN CORE PILER 3 months ago Tachycardia [facility] - Sera William APN CORE PILER 4 months ago Chronic bilateral low back pain without sciatica [facility] Family [facility] - Andrew Lopez MD 6 months ago Liver lesion [facility] Family [facility] - Andrew Lopez MD Upcoming Appointments Future Appointments In [address] MRI, [facility] MEDICARE SALES REPRESENTATIVE - Recent and Past Visits Recent Visits Date Type Provider Dept 05/12/20 Office Visit Andrew Dawson MD [facility] 04/17/20 Office Visit Sera [facility] APN, JOY [facility] 04/15/20 Office Visit [facility] [place] [facility] 03/12/20 Office Visit Andrew [facility] MD [facility] 01/08/20 [facility]medicine [facility] 12/31/19 Telemedicine [facility] MD [facility] 10/09/19 Office Visit Sera [place] APN, CORE PILER [facility] 09/02/19 [facility] 08/26/19 Office Visit Sánchez Jenkins APN, CORE PILER [facility] 08/20/19 Office Visit Andrew Dawson MD [facility] Showing recent visits within past 460 days with a meds authorizing provider and meeting all other requirements Future Appointments No visits were found meeting these conditions. Showing future appointments within next 90 days with a meds authorizing provider and meeting all other requirements KER AND PACKER documented in this encounter Plan of Treatment Not on file documented as of this encounter Visit Diagnoses Not on filedocumented in this encounter Additional Health Concerns Infection Onset Date Last Indicated Resolved Time COVID - 19 08/02/2021 08/02/2021 08/22/2021 12:1 6 AM CHECKER AND PACKER COVID - 19 11/03/2021 11/03/2021 11/23/2021 12:1 6 AM CHECKER AND PACKER Assessment Noted Time PHQ-9 Depression Total Score: 0 03/12/20 12:31 PM CDT documented as of this encounter Care Teams Hospitalist Relationship Specialty Start Date End Date Andrew Dawson MD #[address] [address] PCP - General Family Medicine 11/08/16 01/29/21 Vinicio Dinero MD [address] [place] [address] PCP - General Internal Medicine 01/30/21 07/26/21 Marisa Carcamo PAC [address] [place] [address] PCP - General Physician Freight Weigher 07/27/21 12/25/24 Marisa Carcamo, [facility] [address] [place] [address] Physician Freight Weigher Physician Freight Weigher 01/30/21 documented as of this encounter
--- OUTSIDE RECORDS SUMMARY | 2024-12-29 20:18 | XMS_ITS | Encounter Summary ---
Author Organization [facility] Address [address] [place] [address] Care Team Providers Care Destaticizer Feeder Name Role Phone Ravinder Street MD Unavailable [phone] MD Unavailable [phone] Andrew Dawson MD Primary Care Provider [phone] Vinicio Dinero MD Primary Care Provider [phone] Reason for Visit * Reason Onset Date Comments MEDICATION REFILL 12/24/2018 Encounter Details Date Type Department Care Team (Late st Contact Info) Description 12/24/2018 Refill [facility] General Internal Medicine [address] [facility] [address] [place] [address] Andrew Dawson MD [address] [place] [address] [address] [place] [address] MEDICATION REFILL Social History Tobacco Use Types [...] No 11/03/2018 documented as of this encounter Miscellaneous Notes * Telephone Encounter - Gabby Neff - 12/24/2018 8:18 AM CDT Refill request sent per protocol to provider SCOOBY 08-22-18Jul NONE documented in this encounter Plan of Treatment Not on file documented as of this encounter Visit Diagnoses Not on filedocumented in this encounter Additional Health Concerns Infection Onset Date Last Indicated Resolved Time 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
--- OUTSIDE RECORDS SUMMARY | 2024-12-29 20:18 | XMS_ITS | Encounter Summary ---
Author Organization [facility] Address [address] [place] [address] Phone Care Team Providers Care Land Development Manager Name Role Phone Andrew Dawson MD Primary Care Provider Vinicio Dinero MD Primary Care Provider [phone] Marisa Carcamo PAC Unavailable Marisa Carcamo PAC Primary Care Pro vider Reason for Visit * Reason Comments Medication Refill Encounter Details Date Type Department Care Team (Late st Contact Info) Description 07/08/2020 Refill [facility] Family [facility] #2 [place] [address] Andrew Dawson MD #[address] [address] Medication Refill Social History Tobacco Use Types [...] Telephone Encounter - Andrew Dawson MD - 07/09/2020 12:52 PM CDT Prescription pending signature * Telephone Encounter - Kameron Urban RN - 07/09/2020 12:29 PM CDT Medication failed the protocol, provider to review and approve the medication order PDMP reviewed Alprazolam last dispensed on 06/10/2020 #30 for 15 days Requested Prescriptions Pending Prescriptions Disp Refills ALPRAZolam (XANAX) 0.5 MG Tablet [Pharmacy Med Name: ALPRAZOLAM 0.5 MG TABLET] 30 Tab 0 Sig: TAKE 1 TAB BY MOUTH 2 TIMES DAILY NEEDED FOR ANXIETY. Not Delegated - Psychiatry: Anxiolytics/Hypnotics Failed - 07/09/2020 12:29 PM Failed - This refill cannot be delegated Passed - Valid encounter within last 6 months Past Office Visits Recent Outpatient Visits 1 month ago Chronic atrial fibrillation (HCC) [facility] - Andrew Lopez MD 2 months ago Chronic atrial fibrillation (HCC) [facility] - Sera William APN, CNP 2 months ago Tachycardia [facility] - Sera William APN, CNP 3 months ago Chronic bilateral low back pain without sciatica [facility] Andrew Lopez MD 6 months ago Liver lesion [facility] Andrew Lopez MD Upcoming Appointments BULK GAS SPECIALIST - Recent and Past Visits Recent Visits Date Type Provider Dept 05/12/20 Office Visit Andrew Dawson MD [facility] 04/17/20 Office Visit Sera Spring APN, CNP [facility] 04/15/20 Office Visit [facility] [place] APN, JO[facility] 03/12/20 Office Visit Andrew Dawson MD [facility] 01/08/20 Telemedicine Andrew Dawson MD [facility] 12/31/19 Telemedicine Andrew Dawson MD [facility] 10/09/19 Office Visit Sera [place] APN, JOY [facility] 09/02/19 Office Visit Andrew Dawson MD [facility] 08/26/19 Office Visit Sánchez Jenkins APN, STATISTICS MANAGER [facility] 08/20/19 Office Visit Andrew Dawson MD [facility] Showing recent visits within past 460 days [...] 19 08/02/2021 08/02/2021 08/22/2021 12:1 6 AM AIRBRUSH ARTIST PHOTOGRAPHY COVID - 19 11/03/2021 11/03/2021 11/23/2021 12:1 6 AM AIRBRUSH ARTIST PHOTOGRAPHY Assessment Noted Time PHQ-9 Depression Total Score: 0 03/12/20 20 12:31 PM CDT documented as of this encounter Care Teams Land Development Manager Relationship Specialty Start Date End Date Andrew Dawson MD #[address] [address] PCP - General Family Medicine 11/08/16 01/29/21 Vinicio Dinero MD [address] [place] [address] PCP - General Internal Medicine 01/30/21 07/26/21 Marisa Carcamo, FOREST [address] [place] [address] PCP - General Physician Defensive Fire Control Systems Operator 07/27/21 12/25/24 Marisa Carcamo, FOREST [address] [place] [address] Physician Defensive Fire Control Systems Operator Physician Defensive Fire Control Systems Operator 01/30/21 documented as of this encounter
--- OUTSIDE RECORDS SUMMARY | 2024-12-29 20:18 | XMS_ITS | Encounter Summary ---
Author Organization [facility] Address [address] [facility] [place] [address] Care Team Providers Care Felt Checker Name Role Phone Andrew Dawson MD Primary Care Provider [phone] MD Unavailable [phone] Maddi Cantrell DO Primary Care Provider [phone] MD Unavailable [phone] Andrew Dawson MD Primary Care Provider [phone] Vinicio Dinero MD Primary Care Provider [phone] Reason for Visit * Reason Onset Date Comments MEDICATION REFILL 08/24/2018 Refill Request 08/27/2018 Encounter Details Date Type Department Care Team (Late st Contact Info) Description 08/24/2018 Refill [facility] General Internal Medicine [address] [facility] [address] [place] [address] Andrew Dawson MD [address] [place] [address] [address] [place] [address] MEDICATION REFILL; Refill Request Social History Tobacco Use Types Packs/Day Years [...] encounter Miscellaneous Notes * Telephone Encounter - Maddi Cantrell DO - 08/28/2018 6:21 PM CST Spoke with pharmacy. Verbal ok for 184 5 mg prednisone tabs (30 mg daily x 4 weeks). However, instructions written to wean by 5 mg weekly instructions. Aware that 184 tabs is not correct number but as unsure what wean schedule patient will be following, given enough tabs to start. Still has not been scheduled with nephrology but needs to be seen and unsure what wean schedule will be as need to see how patient responds as weaning. [place] PDMP reviewed and only opioid prescription from November found. However, [facility] pharmacy reportspatient was receiving up to 90 1 mg alprazolam tabs until December through them. No refills with them from December until June when received 30 tabs from [place] ED physician. Then received 20 tabs at hospital discharge. Need to discuss further with patient. Note in [facility] computer that notes no refills to be given early and that [place] PDMP needs to reviewed regularly (another name in PDMP?). Will have Dr. Street follow up with patient to obtain further history as unclear if receiving medication for several months and have concerns with detention use of 1 mg BID-TID. Would advocate need to see psychiatry to further assess and need records from previous PCP. Additionally spoke with Danisha in system who reports that patient has a prescription from February for alprazolam which was not ever filled and has not been filling meds with them regularly. NING DEVELOPER * Telephone Encounter - Denae Rausch - 08/28/2018 2:41 PM CST [facility] Pharmacy calling back in with two issues. 1) [facility] has been waiting 4+ days for clarification regarding patient's prednisone order escribed. Order has a dispense of 75 tablets. However, pharmacist states that per directions, they would need a dispense of 147 tablets. Pharmacist states that they would like to clarify the prednisone dose and directions. 2) [facility] and family have been waiting for xanax to be filled since 08-24-18. Message forwarded to PCP and not resident per [facility] request d/t patient being upset about extended wait time. NING DEVELOPER * Telephone Encounter - Denae Rausch - 08/28/2018 8:32 AM CST Patient calling to check on refill request for Xanax made on 07-28-18. Patient made aware that request is pending with MD. Patient requested that request be sent back to MD high priority. NING DEVELOPER * Telephone Encounter - Анна Mathew, ZANE - 08/27/2018 1:18 PM LEARNING DEVELOPER Patient's sister calling again to check on status of xanax refill. Also states the pharmacy is unable to fill prednisone prescription due to needing clarification on directions. Please call [facility] or patient sister back today. [phone] NING DEVELOPER * Telephone Encounter - Kari Finley, ZANE - 08/27/2018 8:22 AM CST Telephone call from patient. Patient stated that he did get his Prednisone but he did not get the Xanax. Patient is requesting that the Xanax be refilled [facility] as he has been out of it for a week. NING DEVELOPER * Telephone Encounter - Mehnaz Gutierrez - 08/24/2018 12:30 PM CST The pt's sister states that the pharmacy has questions on the prednisone script Patient requesting refills for the following Alprazolam medications. SCOOBY: 08/22/18 NOV: 10/24/18 Problem List Identified: office visit on Medication attached per refill protocol/guidlines for further review by provider yes PCP / Resident PCP verified yes Allergies Reviewed yes Pharmacy Reviewed yes Medication details entered yes Office visit within the last six months yes if not within last 6 months route to GIM-scheduling as well. Office visit greater than 12 months no routed to GIM scheduling ONLY no. 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
--- OUTSIDE RECORDS SUMMARY | 2024-12-29 20:18 | XMS_ITS | Clinical Summary ---
Author Organization [facility] [address] Address [address] [place] [address] Care Team Providers Care Dispatch Specialist Name Role Phone Mushtaq Blake MD Unavailable [phone] Miguel Ángel Sanchez MD Unavailable Monae Velasquez MD Primary Care Provider Emelyn Curtis MD Unavailable [phone] Heena Stephenson MD Unavailable [phone] Jeffery Bro MD Unavailable [phone] Anali Flores MD Unavailable [phone] Alessandro Dominguez NP Unavailable Luciano Rodriguez MD Unavailable Allergies Active Allergy [...] 15 mg tabletIndications: Other persistent atrial fibrillation (HCC),oysterman (current) use of anticoagulants TAKE 1 TABLET BY MOUTH DAILY WITH DINNER. 90 tablet 3 08/02/20 23 Active aspirin 81 mg enteric coated tabletIndications: S/P TAVR (transcatheter aortic valve replacement) Take 1 tablet (81 mg total) by mouth daily 30 tablet 11 09/19/20 23 Active budesonide-glycopy r-formoterol (BREZTRI) 160-9-4.8 mcg/actuation inhalerIndications :Panlobular emphysema (HCC),Chronic respiratory failure with hypoxia, on home oxygen therapy ([facility]) Inhale 2 puffs 2 (two) times a [...] electrophysiology Assessment & Plan (08/10/2023 5:04 PM JANITOR HEAD): Patient has a degree of persistent bradycardia [...] mirtazapine Assessment & Plan (08/10/2023 5:04 PM JANITOR HEAD): Chronic. Continue the buspirone and mirtazapine. They [...] specialist Assessment & Plan (08/10/2023 5:03 PM JANITOR HEAD): Chronic. Per recent notes from Oncology and [...] constipation Assessment & Plan (08/10/2023 5:03 PM JANITOR HEAD): Chronic back pain syndrome. Saw pain management [...] management Assessment & Plan (08/10/2023 5:02 PM JANITOR HEAD): Chronic. Struggles with chronic pain. Was previously [...] management Assessment & Plan (08/10/2023 5:02 PM JANITOR HEAD): Status post prior transaortic valve replacement. Care per Cardiology Chronic diastolic CHF (congestive heart failure) 01/21/2021 Assessment & Plan (03/18/2024 5:22 PM CDT): Chronic. Compensated. Continue current medication. Monitor Assessment & Plan (12/11/2023 5:55 PM CDT): Chronic. Compensated. Continue current prescription medication Assessment & Plan (08/10/2023 5:02 PM JANITOR HEAD): Chronic. Compensated. Continue medication and care per Cardiology Persistent atrial fibrillation 01/20/2021 Assessment & Plan (03/18/2024 5:22 PM CDT): Chronic. Controlled. Continue beta-carlene and anticoagulation. Monitor Assessment & Plan (12/11/2023 5:55 PM CDT): Chronic. Stable. Continue current prescription medication. Continue anticoagulation for stroke prevention Assessment & Plan (08/10/2023 5:01 PM JANITOR HEAD): Chronic. Follows with cardiology. Has plans for upcoming cardiac ablation and placement of pacemaker. Continue medication and care per Cardiology Chronic anticoagulation 02/19/2020 Assessment & Plan (03/18/2024 5:21 PM CDT): Chronic. Bleeding precautions recommended. Assessment & Plan (12/11/2023 5:54 PM CDT): Chronic no signs of spontaneous bleeding. Continue anticoagulation for stroke prevention. Bleeding precautions recommended Assessment & Plan (08/10/2023 5:01 PM JANITOR HEAD): Chronic due to AFib. Discussed bleeding precautions. [...] counseling Assessment & Plan (08/10/2023 5:01 PM JANITOR HEAD): Chronic. Counseled to quit. Reviewed health risks Chronic bilateral low back pain without sciatica 01/18/2017 Assessment & Plan (08/10/2023 5:04 PM JANITOR HEAD): Chronic. Needs to follow up with pain management Panlobular emphysema 11/09/2016 Assessment & Plan (03/18/2024 5:24 PM CDT): Chronic. Breathing is stable. Continue breztri Assessment & Plan (12/11/2023 5:56 PM CDT): Chronic. Uncontrolled. Needs improvement. Noncompliant with inhalers. Restart BReztri. Stressed importance of smoking cessation. No signs of acute exacerbation Assessment & Plan (08/10/2023 5:00 PM JANITOR HEAD): Chronic. Uncontrolled. Noncompliant with inhalers. Stressed importance of taking breast true regularly. Previously did not like any of the powdered inhalers. Still smoking. Patient will be referred to alternative automobile technician for management as he does not want to go to his previous 1 at [facility] Dyslipidemia 09/30/2016 Assessment & Plan (03/18/2024 5:23 PM CDT): Chronic. Tolerates atorvastatin. Continue. 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 They defer for today Assessment & Plan (12/11/2023 5:58 PM CDT): Chronic. Stable. Continue atorvastatin Assessment & Plan (08/10/2023 5:05 PM JANITOR HEAD): Chronic. Encouraged to continue his atorvastatin for [...] decompensation Assessment & Plan (08/10/2023 5:04 PM JANITOR HEAD): Patient has a chronic degree of mild [...] nightly Assessment & Plan (08/10/2023 5:01 PM JANITOR HEAD): Chronic, intermittent hypoxemia. Has supplemental oxygen at night. Has been followed by pulmonology but wishes to switch to closer automobile technician Leg edema 10/31/2022 11/16/2022 Discomfort of left [...] Refused),08/07/2019,06/28/2016 Pneumococcal Polysaccharide PPV23 08/20/2018,09/2011 Tdap 06/26/2018,12/06/2013 Surgical History Surgery Date Site/Laterality Comments BACK SURGERY CARDIAC CATHETERIZATION 05/26/2017 - 06/24/2017 No CAD RENAL BIOPSY 09/25/2017 - 09/24/2018 Unsure if completed. 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 BIOPSY LIVER 09/07/2022 N/A TRANSCATHETER AORTIC VALVE REPLACEMENT 10/18/2022 CHOLECYSTECTOMY EYE SURGERY Bilateral Cataract surgery FL UPPER GI AIR CONTRAST W KUB 11/27/2019 Left FL UPPER GI AIR CONTRAST W KUB 06/20/2019 Left FL UPPER GI AIR CONTRAST W KUB 05/02/2019 Left CARDIAC ELECTROPHYSIOLOGY STUDY AND ABLATION CARDIAC PACEMAKER PLACEMENT Medical History Medical History Date Comments Atrial fibrillation (HCC) Hypertension PUD (peptic ulcer disease) COPD (chronic obstructive pulmonary disease) (HC C) BPH (benign prostatic hyperplasia) Depression Anxiety OMAHA (hard of hearing) Cataract bilateral Cervical spinal stenosis 05/03/2022 Cervical post-laminectomy syndrome 12/07/2021 Lumbar post-laminectomy syndrome 12/07/2021 History of hepatitis C 06/01/2016 treated 2 -2017 Panlobular emphysema (HCC) 11/09/2016 Stage 3a chronic kidney disease (HCC) 04/25/2022 Nontraumatic compression fracture of L1 vertebra (HCC) 03/04/202201/2022 on MRI Aortic valve stenosis, nonrheumatic 10/21/2021 S/p TAVR 09/2022 Hepatocellular carcinoma (HCC) 10/31/2022 r adiation Biliary obstruction (HCC) 03/13/2023 Liver cancer (HCC) Dr. Miguel Ángel lazo CHF (congestive heart failure) (HCC) GERD (gastroesophageal reflux disease) Headache Family History Medical History Relation Name Comments Colon cancer Brother Heart disease Father Heart disease Mother Atrial fibrillation Sister Thyroid disease Sister Relation Name Status Comments Brother Father Mother Sister Alive Social History Tobacco Use Types Packs/Day Years Used Date Smoking Tobacco: Every Day Cigarettes 1 50 Smokeless Tobacco: Never Tobacco Cessation:Ready to Q uit: Not Asked; Counseling Given: Not Answered Comments:About a pack a day Alcohol Use Standard Drinks/Week Comments Not Currently 0 (1 standard drink = 0.6 oz pur e alcohol) [facility] Utilities Answer Date Recorded In the past 12 months has e electric, gas, oil, or water [employer] threatened to shut off services in your [...] often do you attend chur ch or tenriism services? Never 08/31/2023 Do you belong to any clubs o r organizations such as anabaptist groups, unions, fraternal or athletic groups, or [...] place to sleep or slept in a group home (including now)? No 08/31/2023 Personal Safety Answer Date Recorded Have you ever been in or are you currently in a harmful physical or emotional relationship or is someone making you feel afraid or unsafe? 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 Not on file Not on file Obstetrics History Last Filed Vital Signs Vital Sign Reading [...] 04/26/2024 8:15 AM CDT Plan of Treatment Health Maintenance Due Date Last Done Comments Colon Cancer Screening-Colonoscopy 1954 Hepatitis B Screening 1972 Zoster Vaccine (1 of 2) 2004 Well Visit 65+ 2019 Pneumococcal vaccine 65+ (2 of 2 - PCV) 08/20/2019 08/20/2018, 09/25/2011 Lung Cancer Screening 05/04/2024 05/04/2023 , 11/19/2021, 07/19/2021, Additional history exists Depression Screening 05/10/2024 05/10/2023, 05/10/2023, 11/16/2022 Fall Risk Assessment 05/22/2025 05/22/2024, 03/18/2024, 05/10/2023, Additional history exists Influenza Vaccine (Season Ended) 2025 11/15/2021, 08/28/2020, 08/20/2019, Additional history exists DTaP/Tdap/Td Vaccine (3 - Td or Tdap) 06/26/2028 06/26/2018, 12/06/2013 Colon Cancer Screening-FIT Discontinued 05/01/2016 Hepatitis C Screening Completed 07/27/2016 , 07/05/2016, 06/27/2016, Additional history exists Abdominal Aortic Aneurysm (A AA) Screen Completed 03/04/2024, 05/04/2023, 03/13/2023, Additional history exists Medical Devices Implanted Type Area Wildlife Forensic Geneticist Device Identifier Shelf Expiration Date Model / Serial / Lot [employer] Tendril Sts 6fr 58cm Is-1 Connector Active Fixation Bipolar Soft 2087tc/58 - [id number] - [id number] Implanted:Qty: 1 on 08/11/2023 by Leon Rock MD at [facility] Lead Right: Ventricle [employer] 05/25/2026 2088TC/ 58 / [id number] / [employer] Tendril Sts 6fr 52cm Is-1 Connector Active Fixation Bipolar Soft 2087tc/52 - [id number] Implanted:Qty: 1 on 08/11/2023 by Leon Rock MD at [facility] Lead Right: Atrial Appendage [employer] 05/25/2026 2088TC/ 52 / / [employer] Quartet 4.7fr 86cm Quadripolar Is-4 Llll Connector 8 Curve Low 1456q/86 - [id number] - [id number] Implanted:Qty: 1 on 08/11/2023 by Leon Rock MD at [facility] Lead Right: Atrial Appendage [employer] 04/24/2026 1456Q/8 6 / [id number] / [employer] Pacemaker Dual Chamber Special Education Paraprofessional P Mri Compatible Quadra Allure Mp [id number] - [id number] - [id number] Implanted:Qty: 1 on 08/11/2023 by Leon Rock MD at [facility] Pacemaker Left: Infraclavicular Anterior Chest Wall [employer] [id number] / [id number] / Terumo [employer] Andreas Angio-Seal Vip 6fr Closere Device [id number] - [id number] Implanted:Qty: 1 on 06/08/2022 by Demetris Kay MD at [facility] [employer] Andreas 12/23/2022 [id number] / / [id number] [employer] Brooke 3 Commander Brown 26mm Transcatheter Ultra Low Profile [id number] - [id number] - [id number] Implanted:Qty: 1 on 10/18/2022 by Demetris Kay MD at [facility] [employer] 05/26/2025 [id number] / [id number] / Description:Heart valve 3T o r less [employer] Device Clsr Perclose Prostyle Sut-Mediatd Closure-Repair Sys 92524-18 - [id number] Implanted:Qty: 1 on 10/18/2022 by Demetris Kay MD at [facility] [employer] 07/25/2024 58491-1 [employer] Device Clsr Perclose Prostyle Sut-Mediatd Closure-Repair Sys 89209-24 - [id number] Implanted:Qty: 1 on 10/18/2022 by Demetris Kay MD at [facility] [employer] 07/25/2024 42073-1 [facility] Angio-Seal Vip 6fr Closere Device [id number] - [id number] Implanted:Qty: 1 on 10/18/2022 [facility] 06/24/2023 [id number] / / [id number] Medtronic Inc Coil Embolization Coated Detachable Helical Concerto 4bcj0pv Nylon Mm-3-9-Paradise - [id number] Implanted:Qty: 1 on 12/07/2022 at [facility] Medtronic Inc NV-3-4- HELIX / / Medtronic Inc Coil Embolization Coated Detachable Helical Concerto 0hdh70qt Nylon Jy-0-21-Paradise - [id number] Implanted:Qty: 1 on 12/07/2022 at [facility] Medtronic Inc NV-5-20 -HELIX / / [employer] Device Clsr Perclose Prostyle Sut-Mediatd Closure-Repair Sys 21148-08 - [id number] Implanted:Qty: 1 on 12/07/2022 at [facility] [employer] [id number] 09/24/2024 01418-9 3 [id number] [employer] Coil Emolization Coated Detachable Embold 3ifg43gn P[employer]enta Tung[employer] [id number] 20 - [id number] Implanted:Qty: 1 on 12/07/2022 at [facility] [employer] [id number] 08/23/2025 [id number] 20 / / [id number] [employer] Coil Emolization Coated Detachable [employer] Tungsten Embold 8xnq9hp [id number] 40 - [id number] Implanted:Qty: 1 on 12/07/2022 at [facility] [employer] [id number] 40 / / [employer] Coil Emolization Coated Detachable Embold 1elo5md P[employer] Tungsten [id number] 80 - [id number] Implanted:Qty: 1 on 12/07/2022 at [facility] [employer] [id number] 07/31/2025 [id number] 80 / / [id number] Ir Marker .5mm X 1cm Preld 21ga 15cm Long Ndl Visicoil - [id number] Implanted:Qty: 1 on 01/10/2023 at [facility] [employer] Med Andreas 11/22/2025 SN-050- 010-PL1 [id number] Ir Marker .5mm X 1cm Preld 21ga 15cm Long Ndl Visicoil - [id number] Implanted:Qty: 1 on 01/10/2023 at [facility] [employer] Andreas 04/24/2025 SN-050- 010-PL1 [id number] Ir Marker .5mm X 1cm Preld 21ga 15cm Long Ndl Visicoil - [id number] Implanted:Qty: 1 on 01/10/2023 at [facility] [employer] 11/22/2025 SN-050- 010-PL1 [id number] Ir Marker .5mm X 1cm Preld 21ga 15cm Long Ndl Visicoil - [id number] Implanted:Qty: 1 on 01/10/2023 at [facility] [employer] Andreas 11/22/2025 SN-050- 010-PL1 [id number] Vascular Magneticstronic Inc Tyrx Absorbable Antibacterial Envelope-Large 3.3x2.9in [id number] - [id number] Implanted:Qty: 1 on 09/01/2023 [facility] 05/18/2024 [id number] / / [id number] Ter[employer]o [employer] Andreas Angio-Seal Vip 6fr Closere Device [id number] - [id number] Implanted:Qty: 1 on 01/09/2024 at [facility] Ter[employer] Medical Andreas 08/02/2024 [id number] / / [id number] [place] [employer] Coil Emolization Coated Detachable Embold 0hmk47st P[employer]enta Tung[employer] [id number] 50 - [id number] Implanted:Qty: 1 on 01/09/2024 at [facility] [employer] [id number] 08/15/2026 [id number] 50 / / [id number] [employer] Coil Emolization Coated Detachable Embold 4ndw94uy [employer] [id number] 00 - [id number] Implanted:Qty: 1 on 01/09/2024 at [facility] [employer] [id number] 09/07/2026 [id number] 00 / / [id number] [employer] Coil Emolization Coated Detachable P[employer] Tungsten Embold 7fyc5tp [id number] 40 - [id number] Implanted:Qty: 1 on 01/09/2024 at [facility] [employer] [id number] 07/25/2026 [id number] 40 / / [id number] Ter[employer]o [employer] Andreas Angio-Seal Vip 6fr Closere Device [id number] - [id number] Implanted:Qty: 1 on 03/14/2024 at [facility] [employer] 08/28/2024 [id number] / / [id number] Explanted Type Area Wildlife Forensic Geneticist Device Identifier Shelf Expiration Date Model / Serial / Lot [facility] [employer] [facility] Guy Flexi-Stent 7fr 9cm Small Pigtail Flexible .035in Stent 6575 - [id number] Implanted:Qty: 1 on 03/15/2023 by Rusty Pendleton MD at [facility] Explanted:Qty: 1 on 03/17/2023 by Ronald Cortez MD at [facility] Stent N/A: Pancreas onefinestay Inc [id number] 09/25/2021 6575 / / [id number] [employer] Wallflex 10mm X 60mm Fully Covered Biliary [id number] - [id number] Implanted:Qty: 1 on 03/15/2023 by Rusty Pendleton MD at [facility] Explanted:Qty: 1 on 03/17/2023 by Ronald Cortez MD at [facility] Stent N/A: Bile Duct [employer] [id number] 12/05/2024 [id number] / / [id number] Procedures Procedure Name Priority Date/Time Associated Diagnosis [...] abdomen or pelvis abnormality. Stat report by [facility] Electronically signed by: Misbah Li M.D. Narrative [...] abdomen or pelvis abnormality. Stat report by [facility] Electronically signed by: Misbah Li M.D. Iqra Hedrick MD IM CT PROCEDURES Gladys l Result * (ABNORMAL) Hepatitis C (HCV) RNA PCR, quantitative (05/13/2016 9:11 AM CDT) HBsAb log IU/mL 2.0 () log IU 6 7:33 AM [facility] HISTORICAL RESULTS Comment: INTERPRETIVE INFORMATION: Hepatitis C [...] IU/mL 110 () IU/mL 05/18/2016 7:33 AM [facility] HCV RNA result Detected( H) Not Detected 05/18/2016 7:33 AM [facility] [employer] [facility] HISTORICAL RESULTS HCV RNA See Note () 05/18/2016 7:33 AM [facility] [employer] [facility] HISTORICAL RESULTS Comment: Access [facility] Enhanced Report using either link below: -Direct access: [email or web address] Username, Password: [email or web address] Username: [email or web address] Password: [email or web address] Performed by [employer], [address] [place] [address] [email or web address], [place]ico Quevedo MD, Lab. Director 05/13/2016 9:11 AM CDT 05/13/2016 9:22 AM CDT us Janis Vasquez NP LAB MICROBIOLOGY - GENERAL ORDERABLES Final Result [facility] HISTORICAL RESULTS * Occult blood, fecal non neoplasm screening (05/01/2016 10:10 AM CDT) Stool Occult Blood NEGATIVE NEGATIVE 05/01/2016 12:14 PM T [facility] HISTORICAL RESULTS 05/01/2016 10:1 0 AM CDT 05/01/2016 11:57 AM CDT Narrative [facility] HISTORICAL RESULTS - 05/01/2016 12:14 PM CDT Collected By JS us Anthony Zamudio MD LAB BODY FLUIDS AND ST OOLS ORDERABLES Final Result [facility] HISTORICAL RESULTS from Last 3 Months or Most Recently Relevant to Health Maintenance Insurance [id number] [place] [address] MEDICARE ADVANTAGE [facility] MEDICARE Address[id number] [place] [address] [facility] MED[facility] Address: [address] [address] [place] [address] [facility] MEDICARE ADVANTAGE Advance Directives For more information, please contact: [phone] * Full Code (Latest Code Status on [...] 11:04 AM 08/12/2023 2:30 PM Care Teams Dispatch Specialist Relationship Specialty Start Date End Date Monae Velasquez MD [address] DEPT [place] [address] PCP - General Family Practice 12/14/22 Mushtaq Blake MD Medical Oncologist/Hematologi st Hematology and Oncology 09/09/22 Miguel Ángel Sanchez MD [address] [place] [address] Consulting Physician Radiation Oncology 12/09/22 Emelyn Curtis MD [address] DIV IM MEDICAL ONCOLOGY, [address], [address], 7[place] [address] Consulting Physician Medical Oncology 04/17/23 Heena Stephenson MD [address] [place] [address] Fellow General Surgery 04/17/23 Jeffery Bro MD [address] [place] [id number] Referring Physician Gastroenterology 05/16/23 Anali Flores MD [address] [address] Consulting Physician Cardiology 05/22/23 [place] [address] [place] [address] Nurse Practitioner Pain Management 05/22/23 [place] [address] [place] [address] Consulting Physician Interventional Radiology 03/14/24
--- OUTSIDE RECORDS SUMMARY | 2024-12-29 20:18 | XMS_ITS | Encounter Summary ---
Author Organization [facility] Address [address] [place] [address] Phone Care Team Providers Care Sap Functional Analyst Name Role Phone Marisa Carcamo PAC Primary Care Pro vider Reason for Visit * Reason Comments Medication Refill Encounter Details Date Type Department Care Team (Late st Contact Info) Description 04/21/2022 Refill [facility] - Internal Medicine - [place] [address] [place] [address] Marisa Carcamo, [facility] [address] [place] [address] Medication Refill Social History Tobacco Use Types [...] Noted Time PHQ-9 Depression Total Score: 11 08/02/2 021 3:00 PM POWER TOOL REPAIR TECHNICIAN documented as of this encounter Care Teams Sap Functional Analyst Relationship Specialty Start Date End Date Marisa Carcamo, [facility] [address] [place] [address] PCP - General Physician Bakery Demonstrator 07/27/21 12/25/24 documented as of this encounter
--- OUTSIDE RECORDS SUMMARY | 2024-12-29 20:18 | XMS_ITS | Encounter Summary ---
Author Organization [facility] Address [address] [place] [address] Phone Care Team Providers Care Knitting Machine Mechanic Name Role Phone Andrew Dawson MD Primary Care Provider [phone] Vinicio Dinero MD Primary Care Provider [phone] Marisa Carcamo PAC Unavailable Marisa Carcamo PAC Primary Care Pro vider Reason for Visit * Reason Comments Medication Refill Encounter Details Date Type Department Care Team (Late st Contact Info) Description 01/19/2021 Refill [facility]2 [place] [address] Andrew Dawson MD [address] [address] Medication Refill Social History Tobacco Use Types [...] have Coronavirus / COVID-19? No / Unsure 01/11/2021 3:01 PM CDT documented as of this encounter Miscellaneous Notes * Telephone Encounter - Enma Braxton RN - 01/20/2021 11:30 AM CDT Pt is requesting a refill on med. Pt states he feels nervous, shaky, and worries a lot. Medication failed the protocol, provider to review and approve the medication order if appropriate. Requested Prescriptions Pending Prescriptions Disp Refills ALPRAZolam (XANAX) 0.5 MG Tablet [Pharmacy Med Name: ALPRAZOLAM 0.5 MG TABLET] 45 Tablet 0 Sig: TAKE 1 TABLET BY MOUTH THREE TIMES A DAY NEEDED FOR ANXIETY [facility] Not Delegated - Psychiatry: Anxiolytics/Hypnotics Failed - 01/19/2021 1:00 PM Failed - This refill cannot be delegated Passed - Valid encounter within last 6 months Past Office Visits Recent Outpatient Visits 1 week ago Anxiety [facility] - Andrew Lopez MD 4 weeks ago Anxiety [facility] - Andrew Lopez MD 4 months ago Anxiety [facility] - Sera William APN, CNP 8 months ago Chronic atrial fibrillation (HCC) [facility] Andrew Lopez MD 9 months ago Chronic atrial fibrillation (HCC) [facility] - Sera William APN, JOY Upcoming Appointments MANAGER COMMISSION - Recent and Past Visits Recent Visits Date Type Provider Dept 01/11/21 Office Visit Andrew Dawson MD [facility] 12/23/20 Office Visit Andrew Dawson MD [facility] 08/28/20 Office Visit Sera Spring APN, CNP [facility] 05/12/20 Office Visit Andrew Dawson MD [facility] 04/17/20 Office Visit Sera Spring APN, CNP [facility] 04/15/20 Office Visit Sera Spring APN, JOY [facility] 03/12/20 Office Visit Andrew Dawson MD [facility] 01/08/20 Telemedicine Andrew Dawson MD [facility] 12/31/19 Telemedicine Andrew Dawson MD [facility] Showing recent visits within past 460 [...] - 08/02/2021 08/02/2021 08/22/2021 12:1 6 AM JAVA GOLDEN GATE DEVELOPER COVID - 19 11/03/2021 11/03/2021 11/23/2021 12:1 6 AM JAVA GOLDEN GATE DEVELOPER Assessment Noted Time PHQ-9 Depression Total Score: 0 08/28/20 11:08 AM JAVA GOLDEN GATE DEVELOPER documented as of this encounter Care Teams Knitting Machine Mechanic Relationship Specialty Start Date End Date Andrew Dawson MD [address] [address] PCP - General Family Medicine 11/08/16 01/29/21 Vinicio Dinero MD [address] [place] [address] PCP - General Internal Medicine 01/30/21 07/26/21 Marisa Carcamo, PAC [address] [place] [address] PCP - General Physician Plant Equipment Engineer 07/27/21 12/25/24 Marisa Carcamo, PAC [address] [place] [address] Physician Plant Equipment Engineer Physician Plant Equipment Engineer 01/30/21 documented as of this encounter
--- OUTSIDE RECORDS SUMMARY | 2024-12-29 20:19 | XMS_ITS | Encounter Summary ---
Author Organization [facility] Address [address] [place] [address] Phone Care Team Providers Care Necktie Centralizing Machine Operator Name Role Phone Marisa Carcamo PAC Primary Care Pro vider Reason for Visit * Reason Comments Medication Refill Encounter Details Date Type Department Care Team (Late st Contact Info) Description 11/07/2022 Refill [facility] - [place] [address] [place] [address] Marisa Carcamo, [facility] [address] [place] [address] Medication Refill Social History Tobacco [...] Telephone Encounter - Lise Jain RN - 11/07/2022 11:14 AM CST Medication failed the protocol, provider to review and approve the medication order if appropriate. Requested Prescriptions Pending Prescriptions Disp Refills busPIRone (BUSPAR) 5 MG Tablet [Pharmacy Med Name: BUSPIRONE HCL 5 MG TABLET] 180 Tablet 0 Sig: TAKE 1 TABLET BY MOUTH TWICE A DAY Buspirone (6 Month Refill Only) Protocol Failed - 11/07/2022 8:17 AM Failed - Visit with relevant provider [...] with Buspirone for at least 6 months IER TUBE ROOM documented in this encounter Plan of Treatment Not on file documented as of this encounter Visit Diagnoses Diagnosis Anxiety Anxiety state, unspecified documented in this encounter Additional Health Concerns Assessment Noted Time PHQ-9 Depression Total Score: 11 021 3:00 PM CASHIER TUBE ROOM documented as of this encounter Care Teams Necktie Centralizing Machine Operator Relationship Specialty Start Date End Date Marisa Carcamo PAC [address] [place] [address] PCP - General Physician Emergency Technician 07/27/21 12/25/24 documented as of this encounter
--- OUTSIDE RECORDS SUMMARY | 2024-12-29 20:19 | XMS_ITS | Encounter Summary ---
Author Organization [facility] Address [address] [place] [address] Phone Care Team Providers Care Spinner Continuous Name Role Phone Marisa Carcamo PAC Primary Care Pro vider Reason for Visit * Reason Comments Medication Refill Encounter Details Date Type Department Care Team (Late st Contact Info) Description 02/11/2023 Refill [facility] - [place] [address] [place] [address] Marisa Carcamo, [facility] [address] [place] [address] Medication Refill Social History Tobacco [...] Telephone Encounter - Lise Jain RN - 02/13/2023 8:15 AM CDT Medication failed the protocol, provider to review and approve the medication order if appropriate. Requested Prescriptions Pending Prescriptions Disp Refills escitalopram (LEXAPRO) 10 MG Tablet [Pharmacy Med Name: ESCITALOPRAM 10 MG TABLET] 90 Tablet 0 Sig: TAKE 1 TABLET BY MOUTH EVERY DAY SSRI (6 Month Refill Only) Protocol Failed - 02/11/2023 7:02 AM Failed - Visit with relevant provider [...] Depression Total Score: 11 021 3:00 PM EQUIPMENT INSPECTOR documented as of this encounter Care Teams Spinner Continuous Relationship Specialty Start Date End Date Marisa Carcamo PAC [address] [place] [address] PCP - General Physician Food Counter Worker 07/27/21 12/25/24 documented as of this encounter
--- OUTSIDE RECORDS SUMMARY | 2024-12-29 20:19 | XMS_ITS | Encounter Summary ---
Author Organization [facility] Address [address] [place] [address] Phone Care Team Providers Care Recreation Superintendent Name Role Phone Marisa Carcamo PAC Primary Care Pro vider Reason for Visit * Reason Comments Medication Refill Encounter Details Date Type Department Care Team (Late st Contact Info) Description 11/14/2022 Refill [facility] - [place] [address] [place] [address] Marisa Carcamo, [facility] [address] [place] [address] Medication Refill Social History Tobacco [...] Telephone Encounter - Lise Jain RN - 11/14/2022 11:00 AM CST Medication failed the protocol, provider to review and approve the medication order if appropriate. Requested Prescriptions Pending Prescriptions Disp Refills escitalopram (LEXAPRO) 10 MG Tablet [Pharmacy Med Name: ESCITALOPRAM 10 MG TABLET] 90 Tablet 0 Sig: TAKE 1 TABLET BY MOUTH EVERY DAY SSRI (6 Month Refill Only) Protocol Failed - 11/14/2022 9:48 AM Failed - Visit with relevant provider [...] with SSRI for at least 6 months TRICAL CAD TECHNICIAN documented in this encounter Plan of Treatment Not on file documented as of this encounter Visit Diagnoses Not on filedocumented in this encounter Additional Health Concerns Assessment Noted Time PHQ-9 Depression Total Score: 11 021 3:00 PM ELECTRICAL CAD TECHNICIAN documented as of this encounter Care Teams Recreation Superintendent Relationship Specialty Start Date End Date Marisa Carcamo PAC [address] [place] [address] PCP - General Physician Cfo 07/27/21 12/25/24 documented as of this encounter
--- OUTSIDE RECORDS SUMMARY | 2024-12-29 20:19 | XMS_ITS | Encounter Summary ---
Author Organization [facility] Care Team Providers Care Rubber Stamps And Dies Supervisor Name Role Phone Andrew Dawson MD Primary Care Provider [phone] Andrew Dawson MD Primary Care Provider [phone] Vinicio Dinero MD Primary Care Provider [phone]- [phone] Mushtaq Blake MD Unavailable [phone] Miguel Ángel Sanchez MD Unavailable [phone] Monae Velasquez MD Primary Care Provider Emelyn Curtis MD Unavailable [phone] Heena Stephenson MD Unavailable [phone] Jeffery Bro MD Unavailable [phone] Anali Flores MD Unavailable [phone] Alessandro Dominguez NP Unavailable [phone] Luciano Rodriguez MD Unavailable Encounter Details Date Type Department Care Team (Latest Contact Info) Description 09/28/2016 Orders Only [facility] Provider, MD Sourav [address] [place] [address] Social History Tobacco Use Types Packs/Day Years Used Date Smoking Tobacco: Never Assessed Sex and Gender Information Value Date Recorded Sex Assigned at Not on file Legal Sex Male 2:00 AM BACTERIOLOGY TECHNICIAN Gender Identity Not on file Sexual Orientation Not on file documented as of this encounter Plan of Treatment Not on file documented as of this encounter Procedures Procedure Name Priority Date/Time Associated Diagnosis Comments SCAN - LABS 10/07/2016 12:00 AM BACTERIOLOGY TECHNICIAN documented in this encounter Results * SCAN - LABS (10/07/2016 12:00 AM BACTERIOLOGY TECHNICIAN) Narrative 10/07/2016 12:00 AM BACTERIOLOGY TECHNICIAN Ordered by an unspecified provider. us Historical Provider Final Res ult documented in this encounter Visit Diagnoses Not on filedocumented in this encounter Additional Health Concerns Infection Onset Date Last Indicated Resolved Time COVID: Suspected 05/04/2023 05/04/2023 05/04/2023 8:26 PM CDT COVID: Suspected 03/04/2024 03/04/2024 03/04/2024 4:06 PM CDT documented as of this encounter Care Teams Rubber Stamps And Dies Supervisor Relationship Specialty Start Date End Date Andrew Dawson MD PCP - General Cardiology 12/10/18 10/23/19 Andrew Dawson MD [address] [address] PCP - General Family Medicine 10/24/19 10/19/21 Vinicio Dinero MD [address] [place] [address] PCP - General Internal Medicine 10/20/21 12/13/22 Monae Velasquez MD [address] [place] [address] PCP - General Family Practice 12/14/22 Mushtaq Blake MD [address] [place] [address] Medical Oncologist/Hematologi st Hematology and Oncology 09/09/22 Miguel Ángel Sanchez MD [address] [place] [address] Consulting Physician Radiation Oncology 12/09/22 Emelyn Curtis MD [address] DIV IM MEDICAL ONCOLOGY, [address], [address], [address] [place] [address] Consulting Physician Medical Oncology 04/17/23 Heena Stephenson MD [address] [place] [address] Fellow General Surgery 04/17/23 Jeffery Bro MD [address] [place] [address] Referring Physician Gastroenterology 05/16/23 Anali Flores MD [address] [facility] [address] [place] [address] Consulting Physician Cardiology 05/22/23 [place] [address] [place] [address] Nurse Practitioner Pain Management 05/22/23 [place] [address] [place] [address] Consulting Physician Interventional Radiology 03/14/24 documented as of this encounter
--- OUTSIDE RECORDS SUMMARY | 2024-12-29 20:19 | XMS_ITS | Encounter Summary ---
Author Organization [facility] Address [address] [place] [address] Phone Care Team Providers Care Upholstery Sewer Name Role Phone Marisa Carcamo PAC Primary Care Pro vider Reason for Visit * Reason Comments Medication Refill Encounter Details Date Type Department Care Team (Late st Contact Info) Description 02/14/2023 Refill [facility] Internal [facility] - [place] [address] [place] [address] Marisa Carcamo, [facility] [address] [place] [address] Medication Refill Social History Tobacco [...] Total Score: 11 08/02/2 021 3:00 PM SIGNALING PROJECT ENGINEER documented as of this encounter Care Teams Upholstery Sewer Relationship Specialty Start Date End Date Marisa Carcamo, [facility] [address] [place] [address] PCP - General Physician Breast Splitter 07/27/21 12/25/24 documented as of this encounter
--- OUTSIDE RECORDS SUMMARY | 2024-12-29 20:19 | XMS_ITS | Encounter Summary ---
Author Organization [facility] Address [address] [place] [address] Phone Care Team Providers Care Political Theory Professor Name Role Phone Marisa Carcamo PAC Primary Care Pro vider Reason for Visit * Reason Comments Medication Refill Encounter Details Date Type Department Care Team (Late st Contact Info) Description 02/05/2023 Refill [facility] - [place] [address] [place] [address] Marisa Carcamo, [facility] [address] [place] [address] Medication Refill Social History Tobacco [...] Telephone Encounter - Lise Jain RN - 02/06/2023 9:15 AM CDT Pt has not had OV since 11/15/21 Medication failed the protocol, provider to review and approve the medication order if appropriate. Requested Prescriptions Pending Prescriptions Disp Refills busPIRone (BUSPAR) 5 MG Tablet [Pharmacy Med Name: BUSPIRONE HCL 5 MG TABLET] 180 Tablet 0 Sig: TAKE 1 TABLET BY MOUTH TWICE A DAY Buspirone (6 Month Refill Only) Protocol Failed - 02/05/2023 7:12 AM Failed - Visit with relevant provider [...] Depression Total Score: 11 021 3:00 PM SERVER ADMINISTRATOR documented as of this encounter Care Teams Political Theory Professor Relationship Specialty Start Date End Date Marisa Carcamo PAC [address] [place] [address] PCP - General Physician Sales And Management Trainee 07/27/21 12/25/24 documented as of this encounter
--- OUTSIDE RECORDS SUMMARY | 2024-12-29 20:19 | XMS_ITS | Encounter Summary ---
Author Organization [facility] Address [address] [place] [address] Phone Care Team Providers Care Compressor House Operator Name Role Phone Marisa Carcamo PAC Primary Care Pro vider Reason for Visit * Reason Comments Medication Refill Encounter Details Date Type Department Care Team (Late st Contact Info) Description 07/01/2023 Refill [facility]2 [place] [address] Marisa Carcamo, PAC [address] [address] Medication Refill Social History Tobacco [...] Telephone Encounter - Lise Jain RN - 07/03/2023 9:04 AM CDT Medication failed the protocol, provider to review and approve the medication order if appropriate. Requested Prescriptions Pending Prescriptions Disp Refills tamsulosin (FLOMAX) 0.4 MG Capsule [Pharmacy Med Name: TAMSULOSIN HCL 0.4 MG CAPSULE] 90 Capsule 3 Sig: TAKE 1 CAPSULE BY MOUTH EVERY DAY 30 MINS AFTER A MEAL Benign Prostatic Hyperplasia Medications Protocol Failed - 07/01/2023 7:02 AM Failed - Visit with relevant provider in past 12 months or upcoming 90 days Recent Visits No visits were found meeting these conditions. Showing recent visits within past 365 days [...] Depression Total Score: 11 021 3:00 PM AUTOMATIC SPINNING LATHE SETTER documented as of this encounter Care Teams Compressor House Operator Relationship Specialty Start Date End Date Marisa Carcamo PAC [address] [place] [address] PCP - General Physician Manager Strategic 07/27/21 12/25/24 documented as of this encounter
--- OUTSIDE RECORDS SUMMARY | 2024-12-29 20:19 | XMS_ITS | Encounter Summary ---
Author Organization [facility] Address [address] [facility] [address] [place] [address] Care Team Providers Care Financial Associate Name Role Phone Andrew Dawson MD Primary Care Provider [phone] Andrew Dawson MD Primary Care Provider Vinicio Dinero MD Primary Care Provider + [phone] Mushtaq Blake MD Unavailable [phone] Miguel Ángel Sanchez MD Unavailable [phone] Monae Velasquez MD Primary Care Provider Emelyn Curtis MD Unavailable [phone] Heena Stephenson MD Unavailable [phone] Jeffery Bro MD Unavailable [phone] Anali Flores MD Unavailable [phone] Alessandro Dominguez NP Unavailable [phone] Luciano Rodriguez MD Unavailable Encounter Details Date Type Department Care Team (Late st Contact Info) Description 12/27/2016 Orders Only [facility] Provider, MD Sourav [address] [place] [address] Social History Tobacco Use Types Packs/Day Years Used Date Smoking Tobacco: Never Assessed Sex and Gender Information Value Date Recorded Sex Assigned at Not on file Legal Sex Male 2:00 AM BEHAVIORAL HEALTH CARE MANAGER Gender Identity Not on file Sexual Orientation Not on file documented as of this encounter Plan of Treatment Not on file documented as of this encounter Procedures Procedure Name Priority Date/Time Associated Diagnosis Comments CARDIOLOGY REPORT 12/27/2016 documented in this encounter Results * CARDIOLOGY REPORT (12/27/2016) Anatomical Region Laterality Modality Other Narrative 12/27/2016 Ordered by an unspecified provider. us Historical Provider [facility] Final Result documented in this encounter Visit Diagnoses Not on filedocumented in this encounter Additional Health Concerns Infection Onset Date Last Indicated Resolved Time COVID: Suspected 05/04/2023 05/04/2023 05/04/2023 8:26 PM CDT COVID: Suspected 03/04/2024 03/04/2024 03/04/2024 4:06 PM CDT documented as of this encounter Care Teams Financial Associate Relationship Specialty Start Date End Date Andrew Dawson MD PCP - General Cardiology 12/10/18 10/23/19 Andrew Dawson MD [address] [address] PCP - General Family Medicine 10/24/19 10/19/21 Vinicio Dinero MD [address] [place] [address] PCP - General Internal Medicine 10/20/21 12/13/22 Monae Velasquez MD [address] DEPT [place] [address] PCP - General Family Practice 12/14/22 Mushtaq Blake MD [address] [place] [address] Medical Oncologist/Hematologi st Hematology and Oncology 09/09/22 Miguel Ángel Sanchez MD [address] DEPT [place] [address] Consulting Physician Radiation Oncology 12/09/22 Emelyn Curtis MD [address] DIV IM MEDICAL ONCOLOGY, [address], [address], [address]C [place] [address] Consulting Physician Medical Oncology 04/17/23 Heena Stephenson MD [address] [place] [address] Fellow General Surgery 04/17/23 Jeffery Bro MD [address] [facility] [address] [place] [address] Referring Physician Gastroenterology 05/16/23 Anali Flores MD [address] [facility] [address] [place] [address] Consulting Physician Cardiology 05/22/23 [place] [address] [place] [address] Nurse Practitioner Pain Management 05/22/23 [place] [address] [place] [address] Consulting Physician Interventional Radiology 03/14/24 documented as of this encounter
[2024-12-29] MEDS: diazePAM INJ (*CRX) 10 MG/2 ML SYRINGE 2 MG IV PUSH (20:36)
--- NOTE | 2024-12-29 20:51 | ER_ITS ---
This report was moved to the correct visit on 01/03/2025. The original report was signed by Marguerite Garcia MD on 12/30/24 [id number]. HPI - General Adult General Chief complaint: Unspecified Stated complaint: uncontrolled pain Time Seen by Provider: 12/29/24 19:53 Source: RN notes reviewed and other (hospice nurse, [place]) Mode of arrival: EMS Limitations: altered mental status and clinical condition History of Present Illness HPI narrative: Patient on hospice presents with unmanaged symptoms of terminal restlessness. He had been getting 90mg morphine, 8mg Dilaudid, 4mg Ativan but continues to be in distress, rolling around and has caused bruising and tears on his arms. Hospice nurse in conjunction with hospice medical practice manager feel it is best he be admitted in patient (GIP). He had been complaining of pain all over. Related Data Home Medications ?Medication ?Instructions ?Recorded ?Confirmed ?Last Taken ?Type atorvastatin 20 mg tablet 20 mg PO DAILY 09/20/19 06/26/24 06/25/24 History metoprolol succinate 50 mg 50 mg PO DAILY 02/23/23 06/26/24 Unknown History tablet,extended release 24 hr rivaroxaban 15 mg tablet (Xarelto) 15 mg PO DAILY 02/23/23 06/26/24 06/23/24 History tamsulosin 0.4 mg capsule 0.4 mg PO DAILY 02/23/23 06/26/24 06/25/24 History aspirin 81 mg tablet,delayed 81 mg PO DAILY 06/18/24 06/26/24 06/25/24 History release lubiprostone 24 mcg capsule 48 mcg PO BIDWMEAL 06/18/24 06/26/24 06/25/24 History mirtazapine 15 mg tablet 15 mg PO HS 06/18/24 06/26/24 06/25/24 History oxycodone 10 mg tablet 10 mg PO TID PRN Pain 06/18/24 06/26/24 06/26/24 History Allergies Allergy/AdvReac Type Severity Reaction Status Date / Time nicotine Allergy Intermediate Nightmare Verified 12/29/24 19:40 albuterol AdvReac Shakiness Verified 12/29/24 19:40 PMFSH Past Medical History Medical History Hospice care patient VitasLiver cancer Dementia Paroxysmal atrial fibrillation cardioversion x 2BPH (benign prostatic hyperplasia) Epistaxis Chronic kidney disease Aortic stenosis mildAtrial flutter Chest pain, musculoskeletal Hepatitis C Anemia Anxiety Depression Back pain Osteoporosis Kidney stones GERD (gastroesophageal reflux disease) History of rectal polyps Tuberculosis Bronchitis Emphysema of lung COPD (chronic obstructive pulmonary disease) DVT (deep venous thrombosis) HTN (hypertension) HLD (hyperlipidemia) CHF (congestive heart failure) Echo 09/2018: EF of 50% and impaired diastolic relaxation grade 1Heart attack Pt reports old MA but I could ot find any documentation in [facility], Care Everywhere, etc. Cardiac cath 2017 showed normal coronary arteries.CVA (cerebral vascular accident) Right side effectsCataracts, bilateral Surgical History Surgical History History of esophagogastroduodenoscopy (EGD) Dr. Braden of appendectomy Hx of spinal surgery Hx of cardiac catheterization x2 Family History Family History Father Heart diseaseMother Diabetes mellitus Heart disease HypertensionGrandparent Hypertension Social History Social History Social History: Lives alone, sister Felisa Jerome helps with his meds. he has 1 son. The patient used to smoke up to 2 packs of cigarettes a day and cut down to 1. He uses marijuana often. He retired from [employer]. POLST signed 07/15/24 lists no CPR, do not attempt resuscitation (DNAR), comfort focus treatment. Smoking packs per day: 1 Smoking cigarettes per day: 20.0 Years smoked: 45 Smoking pack-years: 45.00 Smoking status: Current every day smoker Tobacco type: cigarettes Second hand tobacco smoke exposure: No Alcohol intake: current Substance use: current Substance use type: marijuana Other substance usage details: OCC. Last use: today Lack of Transportation: No Lack of Food: Never True Current Housing: I Have Housing Concerned About Future Housing: No Difficulty Paying Gas/Electric Bills: No Difficulty Paying for Meds: No Currently Unemployed: No Education: High School Diploma/GED Difficulty w/ Childcare or Family Care: No Living arrangements: alone Occupation/Education: retired Gender identity (if verbalized by the patient): Male Spiritual care concerns: No Agree to blood products: Yes Exam Narrative: GENERAL: Chronically ill-appearing HEAD: Normocephalic, atraumatic. EYES: Non injected, non icteric ENT: Nares clear, no rhinorrhea or epistaxis. CHEST: Tachypneic. Coarse bilateral breath sounds. HEART: Regular rate and rhythm. . ABDOMEN: Soft, nondistended. EXTREMITIES: Normal range of motion. No lower extremity edema. SKIN: Warm, dry. Multiple areas of ecchymosis bilateral arms. NEURO: No focal deficits. Course Vital Signs Vital signs: Vital Signs Temperature 97.7 F 12/29/24 19:30 Pulse Rate 73 12/29/24 19:30 Respiratory Rate 26 H 12/29/24 19:30 Blood Pressure 121/97 H 12/29/24 19:30 Pulse Oximetry 97 12/29/24 19:30 Oxygen Delivery Room Air 12/29/24 19:30 Temperature 97.7 F 12/29/24 19:30 Pulse Rate 70 12/29/24 20:52 Respiratory Rate 26 H 12/29/24 20:57 Blood Pressure 121/97 H 12/29/24 19:30 Pulse Oximetry 95 12/29/24 20:57 Oxygen Delivery Room Air 12/29/24 19:30 Medical Decision Making MDM Narrative Medical decision making narrative: Patient is on hospice and presents after revenue accounting manager and medical practice manager felt his symptoms were still unmanaged at home and recommending admission given his terminal restlessness. In the emergency department he is afebrile with acceptable vital signs although elevated diastolic blood pressure. He is also tachypneic. Patient is assessed by me received a dose of diazepam and glycopyrrolate while awaiting change in registration to a new V number for inpatient hospice admission (GIP). Hospice orders requested by Armando are entered into the EMR under patient's hospice admission V # [id number]. Vital Signs Vital Signs: Vital Signs Temperature 97.7 F 12/29/24 19:30 Pulse Rate 73 12/29/24 19:30 Respiratory Rate 26 H 12/29/24 19:30 Blood Pressure 121/97 H 12/29/24 19:30 Pulse Oximetry 97 12/29/24 19:30 Oxygen Delivery Room Air 12/29/24 19:30 Temperature 97.7 F 12/29/24 19:30 Pulse Rate 70 12/29/24 20:52 Respiratory Rate 26 H 12/29/24 20:57 Blood Pressure 121/97 H 12/29/24 19:30 Pulse Oximetry 95 12/29/24 20:57 Oxygen Delivery Room Air 12/29/24 19:30 Discharge Plan Discharge Clinical Impression: Terminal restlessness, Hospice care patient Patient Disposition: Still a Patient Condition: Terminal Patient Language: Latvian Prescriptions: No Action atorvastatin 20 mg Tablet 20 mg PO DAILY ondansetron 4 mg tablet,disintegrating 4 mg PO Q8H PRN (Reason: nausea and vomiting) Qty: 7 0RF aspirin 81 mg Tablet,Delayed Release (Dr/Ec) 81 mg PO DAILY mirtazapine 15 mg tablet 15 mg PO HS lubiprostone 24 mcg capsule 48 mcg PO BIDWMEAL oxycodone 10 mg tablet 10 mg PO TID PRN (Reason: Pain) Xarelto 15 mg tablet 15 mg PO DAILY metoprolol succinate 50 mg tablet extended release 24 hr 50 mg PO DAILY tamsulosin 0.4 mg capsule 0.4 mg PO DAILY lansoprazole 30 mg capsule,delayed release(DR/EC) See Rx Instructions .ROUTE .COMPLEX Qty: 180 1RF Dose Instruction: TAKE 1 CAPSULE BY MOUTH TWICE DAILY Rx Instructions: TAKE 1 CAPSULE BY MOUTH TWICE DAILY metoclopramide HCl 5 mg tablet See Rx Instructions .ROUTE .COMPLEX Qty: 30 0RF Dose Instruction: TAKE 1 TABLET BY MOUTH EVERYDAY AT BEDTIME Rx Instructions: TAKE 1 TABLET BY MOUTH EVERYDAY AT BEDTIME Follow-up/Referrals: PHYSICIAN NOT ON STAFF,NONSTAFF [Primary Care Provider] - Please be advised this is a medical document. It is intended for tpic-rl-hwdl communication. It is written in medical language and may contain unfamiliar abbreviations or verbiage. Medical documents are intended to carry relevant information, facts as evident, and the clinical opinion of the practitioner at the time of the encounter. This report may have been done utilizing a voice recognition system. Attempts have been made to correct errors. However, there may be uncorrected grammatical, spelling, and recognition errors present. The file time of this note does not necessarily represent the time the patient was seen. Report Initialized date/time: Marguerite Garcia MD 12/29/242050 Electronically signed by: Marguerite Garcia MD 12/30/[id number] [facility]
[2024-12-29 20:52] VITALS: PULSE 70; RESP 22; O2SAT 94
[2024-12-29] MEDS: GLYCOPYRROLATE INJ (*SP) 0.2 MG/ML VIAL 0.1 MG IV PUSH ×2 (20:52→22:37)
[2024-12-29 20:57] VITALS: RESP 26; O2SAT 95
--- OUTSIDE RECORDS SUMMARY | 2024-12-29 21:36 | XMS_ITS | Clinical Summary ---
Author Organization [facility] [employer] Address [address] [place] [address] Care Team Providers Care Weigher And Mixer Name Role Phone Ravinder Street MD Unavailable [phone] MD Unavailable [phone] Vinicio Dinero MD Primary Care Provider [phone] Source Comments [facility] [employer],non-owned Affiliates and Associated Physician Practices is amultiple site organization consisting of ambulatory clinics and hospital sitesin [place], [place], [place] and [place]. This disclosure is being madepursuant to the Care Everywhere program and may not contain all information available regarding this patient. Last updated 18.[facility] [employer] Allergies Active Allergy Reactions Criticality Noted Date [...] sprayIndications:A llergic rhinitis, unspecified seasonality, unspecified trigger [place] 2 sprays into each nostril once daily [...] daily 90 tablet 3 07/27/2022 Active saline ([place]) gelIndications:Dry nose [place] into each nostril as needed for Dry Nose 14.1 g 5 07/27/2022 Active fluticasone-salmet gt (Advair Diskus) 250-50 MCG/ACT inhalerIndications :Chronic obstructive [...] CDT Respiratory Rate 20 11/27/2019 12:38 PM HOME SALES CONSULTANT Oxygen Saturation 96% 01/13/2021 3:08 PM CDT Inhaled Oxygen Concentration 21% 11/07/2018 8 :13 AM HOME SALES CONSULTANT Weight 64 kg (141 lb) 07/27/2022 2:16 [...] this topic Medical Devices Implanted Type Area Workforce Management Analyst Device Identifier Shelf Expiration Date Model / Serial / Lot Wax Bone Implanted:Qty: 1 on 02/07/2013 by Wilbur Muñoz MD at [facility] N/A: Spine Cervical [employer] [id number] / / Coil Azur Detatch .018in 3.0-5.0cm Implanted:Qty: 1 on 07/30/2018 at [facility] [employer] 01/22/2023 [id number] / / [id number] Coil Azur Detatch .018in 2.0mm X 2.0cm Implanted:Qty: 1 on 07/30/2018 at [facility] [employer] 02/22/2022 [id number] / / [id number] Procedures Procedure Name Priority Date/Time Associated Diagnosis Comments CT LUNG SCREEN LOW DOSE Routine 07/19/2021 9:29 AM CDT Encounter for screening for lung cancer HEPATITIS C RNA QUANTITATIVE Routine 09/11/2018 11:09 AM HOME SALES CONSULTANT Chronic hepatitis C without hepatic coma from [...] chest CT. Dictated by Miles Andre D.O. (Landscape Architecture Teacher) This report was approved by Miles Andre [...] chest CT. Dictated by Miles Andre D.O. (Landscape Architecture Teacher) This report was approved by Miles Andre on 07/19/2021 10:14 AM . I, Dr. ALEXX LACY have personally reviewed and interpreted this examination/study. This report was electronically signed by ALEXX LACY on 110:20 AM . Jony Hernandez MD CT ORDERABLES * HEPATITIS C RNA QUANTITATIVE (09/11/2018 11:09 AM HOME SALES CONSULTANT) Hepatitis C RNA PCR, Interp Not Detected Not Detected 09/14/2018 8:16 AM HOME SALES CONSULTANT [facility] Blood BLOOD SPECIMEN / Unknown Lab Venipuncture / Unknown 09/11/2018 11:09 AM HOME SALES CONSULTANT 09/11/2018 11:36 AM HOME SALES CONSULTANT Narrative [facility] - 09/14/2018 8:16 AM HOME SALES CONSULTANT The Hepatitis C viral (HCV) RNA analysis utilized a serum sample, real-time reverse immunology specialist PCR, and is reported as Not Detected, [...] the isolation of HCV RNA with reverse immunology specialist of genomic HCV RNA followed by real-time PCR in the presence of an unrelated RNA internal control. The internal control ensures that RNA is isolated, and that no general significant inhibitors of the RT-PCR process are present. The analysis was performed using a U.S. FDA approved test methodology (Retrace Real Time HCV). Nishant Cifuentes MD LAB - CHEMISTRY ROGER MCLAIN Performing Organization Address City/State/[facility] Co de Phone Number [facility] [address] [phone] from Last 3 Months or Most Recently [...] 10:57 PM 07/30/2018 6:08 PM Care Teams Weigher And Mixer Relationship Specialty Start Date End Date Vinicio Dinero MD [address] [place] [address] PCP - General 12/28/[address] MD Resident - PCP Student Resident 08/27/[address] MD Student Resident 08/28/18
--- OUTSIDE RECORDS SUMMARY | 2024-12-29 21:36 | XMS_ITS | Encounter Summary ---
Author Organization [facility] Address [address] [place] [address] Phone Care Team Providers Care Spanish Professor Name Role Phone Marisa Carcamo Jerrica PAC Primary Care Pro vider Reason for Visit * Reason Comments Medication Refill Encounter Details Date Type Department Care Team (Late st Contact Info) Description 08/01/2021 Refill [facility] [address] [place], [place] [id number] Andrew Dawson MD #[address] [id number] Medication Refill Social History Tobacco Use Types [...] COVID-19? No / Unsure 08/02/2021 3:06 PM CELLULAR TOWER CLIMBER documented as of this encounter Miscellaneous Notes [...] Oyster Shell Calcium-Vit D) 500-125 MG-UNIT Tablet [[id number]] 8 Status: Active Ordering user: Andrew Dawson MD 12/31/20858 Authorized by: Andrew Dawson MD Frequency: Daily 12/31/20 - Until Discontinued Released by: Andrew Dawson MD 12/31/20858 Pharmacy [id number] Original Rx was discontinued on 12/23/[address] Dawson. The above medication is what patient should betaking per medication list. ULAR TOWER CLIMBER documented in this encounter Plan of Treatment Not on file documented as of this encounter Visit Diagnoses Not on filedocumented in this encounter Additional Health Concerns Infection Onset Date Last Indicated Resolved Time COVID - 19 08/02/2021 08/02/2021 08/22/2021 12:1 6 AM CELLULAR TOWER CLIMBER COVID - 19 11/03/2021 11/03/2021 11/23/2021 12:1 6 AM CELLULAR TOWER CLIMBER Assessment Noted Time PHQ-9 Depression Total Score: 0 06/04/20 12:00 PM CDT documented as of this encounter Care Teams Spanish Professor Relationship Specialty Start Date End Date Marisa Carcamo PAC [address] [place] [address] PCP - General Physician Employee Relations Assistant 07/27/21 12/25/24 documented as of this encounter
--- OUTSIDE RECORDS SUMMARY | 2024-12-29 21:36 | XMS_ITS | Encounter Summary ---
Author Organization [facility] Address [address] [place] [address] Phone Care Team Providers Care Non Morse Intercept Technician Name Role Phone Marisa Carcamo PAC Primary Care Pro vider Reason for Visit * Reason Comments Medication Refill Encounter Details Date Type Department Care Team (Late st Contact Info) Description 04/21/2022 Refill [facility] - [facility] - [place] [address] [place] [address] Marisa Carcamo, [facility] [address] [place] [address] Medication Refill Social History Tobacco Use Types [...] Total Score: 11 08/02/2 021 3:00 PM RUBBER FLAP CUTTER documented as of this encounter Care Teams Non Morse Intercept Technician Relationship Specialty Start Date End Date Marisa Carcamo, [facility] [address] [place] [address] PCP - General Physician Motion Picture Set Worker 07/27/21 12/25/24 documented as of this encounter
--- OUTSIDE RECORDS SUMMARY | 2024-12-29 21:36 | XMS_ITS | Encounter Summary ---
Author Organization [facility] Address [address] [place] [address] Phone Care Team Providers Care Workforce Development Specialist Name Role Phone Andrew Dawson MD Primary Care Provider [phone] Vinicio Dinero MD Primary Care Provider [phone] Marisa Carcamo PAC Unavailable Marisa Carcamo PAC Primary Care Pro vider Reason for Visit * Reason Onset Date Comments Medication Management 09/17/2020 Encounter Details Date Type Department Care Team (Late st Contact Info) Description 09/17/2020 Telephone [facility] [address] [place] [address] Andrew Dawson MD #[address] [address] Medication Management Social History Tobacco [...] COVID-19? No / Unsure 08/28/2020 10:46 AM CNC GRINDER documented as of this encounter Miscellaneous Notes * Telephone Encounter - Andrew Dawson MD - 09/17/2020 11:44 AM CST no GRINDER * Telephone Encounter - Senia Hernandez RN - 09/17/2020 11:22 AM CNC GRINDER Pt is calling back - States he [...] that either he or his sister will potato picker, but he did not go last week on to pick it up. States his friend just last night and is anxious. Dr. Dawson, would you be agreeable to sending in a few tabs for him? Next fill is due in one week, on 09/24. GRINDER * Telephone Encounter - Andrew Dawson MD - 09/17/2020 10:12 AM CST Not going to fill GRINDER * Telephone Encounter - Zahira Santiago RN - 09/17/2020 9:59 AM CNC GRINDER Received call from Cheri at [facility] pharmacy who states patient called them last [...] provider to advise on how to proceed. GRINDER documented in this encounter Plan of Treatment Not on file documented as of this encounter Visit Diagnoses Not on filedocumented in this encounter Additional Health Concerns Infection Onset Date Last Indicated Resolved Time COVID - 19 08/02/2021 08/02/2021 08/22/2021 12:1 6 AM CNC GRINDER COVID - 19 11/03/2021 11/03/2021 11/23/2021 12:1 6 AM CNC GRINDER Assessment Noted Time PHQ-9 Depression Total Score: 0 08/28/20 11:08 AM CNC GRINDER documented as of this encounter Care Teams Workforce Development Specialist Relationship Specialty Start Date End Date Andrew Dawson MD #[address] [address] PCP - General Family Medicine 11/08/16 01/29/21 Vinicio Dinero MD [address] [place] [address] PCP - General Internal Medicine 01/30/21 07/26/21 Marisa Carcamo, FOREST [address] [place] [address] PCP - General Physician Phototypesetter Operator 07/27/21 12/25/24 Marisa Carcamo PAC [address] [place] [address] Physician Phototypesetter Operator Physician Phototypesetter Operator 01/30/21 documented as of this encounter
--- OUTSIDE RECORDS SUMMARY | 2024-12-29 21:36 | XMS_ITS | Encounter Summary ---
Author Organization [facility] Address [address] [place] [address] Phone Care Team Providers Care Regulatory Compliance Director Name Role Phone Andrew Dawson MD Primary Care Provider [phone] Vinicio Dinero MD Primary Care Provider [phone] Marisa Carcamo PAC Unavailable Marisa Carcamo PAC Primary Care Pro vider Reason for Visit * Reason Comments Medication Refill Encounter Details Date Type Department Care Team (Late st Contact Info) Description 10/03/2020 Refill [facility] [address] [place] [address] Andrew Dawson MD #[address] [address] Medication Refill Social History Tobacco Use Types [...] AM CST Prescription approved. Please call in F DESIGN ENGINEER * Telephone Encounter - Gabby Coto RN [...] Recent Outpatient Visits 1 month ago Anxiety [facility] APN, TRIMMING INSPECTOR 4 months ago Chronic atrial fibrillation (HCC) [facility] Andrew Lopez MD 5 months ago Chronic atrial fibrillation (HCC) [facility] APN, TRIMMING INSPECTOR 5 months ago Tachycardia [facility] POWDER LOADER, TRIMMING INSPECTOR 6 months ago Chronic bilateral low back pain without sciatica [facility] Andrew Lopez MD Upcoming Appointments [facility]SHA[facility] GRINDER - Recent and Past Visits Recent Visits Date Type Provider Dept 08/28/20 Office Visit [facility] [place] APN, TRIMMING INSPECTOR [facility] 05/12/20 Office Visit Andrew Dawson MD [facility] 04/17/20 Office Visit S[facility] APN, CNP [facility] 04/15/20 Office Visit [facility] [place] APN, TRIMMING INSPECTOR [facility] 03/12/20 Office Visit Andrew Dawson MD [facility] 01/08/20 Telemedicine Andrew Dawson MD [facility] 12/31/19 Telemedicine Andrew Dawson MD [facility] 10/09/19 Office Visit Sera [place] APN, TRIMMING INSPECTOR [facility] 09/02/19 Office Visit Andrew Dawson MD [facility] 08/26/19 Office Visit Sánchez Jenkins APN, TRIMMING INSPECTOR [facility] Showing recent visits within past 460 days with a meds authorizing provider and meeting all other requirements Future Appointments No visits were found meeting these conditions. Showing future appointments within next 90 days with a meds authorizing provider and meeting all other requirements F DESIGN ENGINEER documented in this encounter Plan of Treatment Not on file documented as of this encounter Visit Diagnoses Not on filedocumented in this encounter Additional Health Concerns Infection Onset Date Last Indicated Resolved Time COVID - 08/02/2021 08/02/2021 08/22/2021 12:1 6 AM STAFF DESIGN ENGINEER COVID - 19 11/03/2021 11/03/2021 11/23/2021 12:1 6 AM STAFF DESIGN ENGINEER Assessment Noted Time PHQ-9 Depression Total Score: 0 08/28/20 11:08 AM STAFF DESIGN ENGINEER documented as of this encounter Care Teams Regulatory Compliance Director Relationship Specialty Start Date End Date Andrew Dawson MD #[address] [address] PCP - General Family Medicine 11/08/16 01/29/21 Vinicio Dinero MD [address] [place] [address] PCP - General Internal Medicine 01/30/21 07/26/21 Marisa Carcamo, FOREST [address] [place] [address] PCP - General Physician Immigration Inspector 07/27/21 12/25/24 Marisa Carcamo, FOREST [address] [place] [address] Physician Immigration Inspector Physician Immigration Inspector 01/30/21 documented as of this encounter
--- OUTSIDE RECORDS SUMMARY | 2024-12-29 21:36 | XMS_ITS | Encounter Summary ---
Author Organization [facility] Healthcare Address [address] [place] [address] Care Team Providers Care Nickel Plater Name Role Phone Vinicio Dinero MD Primary Care Provider [phone] Mushtaq Blake MD Unavailable [phone] Miguel Ángel Sanchez MD Unavailable [phone] Monae Velasquez MD Primary Care Provider Emelyn Curtis MD Unavailable [phone] Heena Stephenson MD Unavailable [phone] Jeffery Bro MD Unavailable [phone] Anali Flores MD Unavailable [phone] Alessandro Dominguez NP Unavailable [phone] Luciano Rodriguez MD Unavailable Encounter Details Date Type Department Care Team (Late st Contact Info) Description 09/02/2022 Telephone [facility] - Interventional Radiology [address] [place] [address] Amanda Valenzuela, ZANE Social History Tobacco Use Types Packs/Day Years Used Date Smoking Tobacco: Every Day Cigarettes Smokeless Tobacco: Never Comments:[facility] unable to investment counselor at this time. Alcohol Use Standard [...] on file Legal Sex Male 2:00 AM SLUNK SKIN CURER Gender Identity Not on file Sexual Orientation [...] documented as of this encounter Care Teams Nickel Plater Relationship Specialty Start Date End Date Vinicio Dinero MD [address] [place] [address] PCP - General Internal Medicine 10/20/21 12/13/22 Monae Vleasquez MD [address] [place] [address] PCP - General Family Practice 12/14/22 Mushtaq Blake MD [address] [place] [address] Medical Oncologist/Hematologi st Hematology and Oncology 09/09/22 Miguel Ángel Sanchez MD [address] [place] [address] Consulting Physician Radiation Oncology 12/09/22 Emelyn Curtis MD [address] [facility], [address], 7B, 7[place] [address] Consulting Physician Medical Oncology 04/17/23 Heena Stephenson MD [address] [facility] [address]B [place] [address] Fellow General Surgery 04/17/23 Jeffery Bro MD [address] [facility] [address] [place] [address] Referring Physician Gastroenterology 05/16/23 Anali Flores MD [address] [facility] [address] [place] [address] Consulting Physician Cardiology 05/22/23 [place] [address] [address] [place] [address] Nurse Practitioner Pain Management 05/22/23 [place] [address] [address] [place] [address] Consulting Physician Interventional Radiology 03/14/24 documented as of this encounter
--- OUTSIDE RECORDS SUMMARY | 2024-12-29 21:36 | XMS_ITS | Encounter Summary ---
Author Organization [facility] Address [address] [place] [address] Phone Care Team Providers Care Child Nutrition Director Name Role Phone Andrew Dawson MD Primary Care Provider [phone] Vinicio Dinero MD Primary Care Provider [phone] Marisa Carcamo PAC Unavailable Marisa Carcamo PAC Primary Care Pro vider Reason for Visit * Reason Comments Medication Refill Encounter Details Date Type Department Care Team (Late st Contact Info) Description 10/20/2020 Refill [facility] [address] [place] [address] Andrew Dawson MD [address] [address] Medication Refill Social History Tobacco Use Types [...] COVID-19? No / Unsure 10/17/2020 2:19 PM WEB ARCHITECT documented as of this encounter Miscellaneous Notes [...] Recent Outpatient Visits 1 month ago Anxiety [facility] - Sera William APN, SOLAR PROJECT COORDINATION SPECIALIST 5 months ago Chronic atrial fibrillation (HCC) [facility] - Andrew Lopez MD 6 months ago Chronic atrial fibrillation (HCC) [facility] - Sera William APN, SOLAR PROJECT COORDINATION SPECIALIST 6 months ago Tachycardia [facility] - Sera William APN, SOLAR PROJECT COORDINATION SPECIALIST 7 months ago Chronic bilateral low back pain without sciatica [facility] - Andrew Lopez MD Upcoming Appointments GIFT SHOP ASSISTANT - Recent and Past Visits Recent Visits Date Type Provider Dept 08/28/20 Office Visit Sera Spring APN, SOLAR PROJECT COORDINATION SPECIALIST [facility] 05/12/20 Office Visit Andrew Dawson MD [facility] 04/17/20 Office Visit Sera Spring APN, JOY [facility] 04/15/20 Office Visit Sera Spring APN, SOLAR PROJECT COORDINATION SPECIALIST [facility] 03/12/20 Office Visit Andrew Dawson MD [facility] 01/08/20 Telemedicine Andrew Dawson MD [facility] 12/31/19 Telemedicine Andrew Dawson MD [facility] 10/09/19 Office Visit Sera Spring APN, JOY [facility] 09/[facility]19 Office Visit [facility] MD [facility] 08/26/19 Office Visit Sánchez Jenkins APN, SOLAR PROJECT COORDINATION SPECIALIST [facility] Showing recent visits within past 460 days with a meds authorizing provider and meeting all other requirements Future Appointments No visits were found meeting these conditions. Showing future appointments within next 90 days with a meds authorizing provider and meeting all other requirements ARCHITECT * Telephone Encounter - Deb Valente - [...] a two week supply at a time ARCHITECT documented in this encounter Plan of Treatment Not on file documented as of this encounter Visit Diagnoses Diagnosis Anxiety Anxiety state, unspecified documented in this encounter Additional Health Concerns Infection Onset Date Last Indicated Resolved Time COVID - 19 08/02/2021 08/02/2021 08/22/2021 12:1 6 AM WEB ARCHITECT COVID - 19 11/03/2021 11/03/2021 11/23/2021 12:1 6 AM WEB ARCHITECT Assessment Noted Time PHQ-9 Depression Total Score: 0 08/28/20 20 11:08 AM WEB ARCHITECT documented as of this encounter Care Teams Child Nutrition Director Relationship Specialty Start Date End Date Andrew Dawson MD [address] [address] PCP - General Family Medicine 11/08/16 01/29/21 Vinicio Dinero MD [address] [place] [address] PCP - General Internal Medicine 01/30/21 07/26/21 Marisa Carcamo, PAC [address] [place] [address] PCP - General Physician Ball Sorter 07/27/21 12/25/24 Marisa Carcamo, PAC [address] [place] [address] Physician Ball Sorter Physician Ball Sorter 01/30/21 documented as of this encounter
--- OUTSIDE RECORDS SUMMARY | 2024-12-29 21:36 | XMS_ITS | Encounter Summary ---
Author Organization [facility] Address [address] [place] [address] Phone Care Team Providers Care Online Project Manager Name Role Phone Marisa Carcamo PAC Primary Care Pro vider Reason for Visit * Reason Comments Medication Refill Encounter Details Date Type Department Care Team (Late st Contact Info) Description 07/27/2022 Refill [facility] - Internal Medicine - [place] [address] [place] [address] Marisa Carcamo, [facility] [address] [place] [address] Medication Refill Social History Tobacco [...] PHQ-9 Depression Total Score: 021 3:00 PM STOCKHOLDER documented as of this encounter Care Teams Online Project Manager Relationship Specialty Start Date End Date Marisa Carcamo PAC [address] [place] [address] PCP - General Physician Long Wall Mining Machine Helper 07/27/21 12/25/24 documented as of this encounter
--- OUTSIDE RECORDS SUMMARY | 2024-12-29 21:36 | XMS_ITS | Encounter Summary ---
Author Organization [facility] Address [address] [place] [place] [address] Care Team Providers Care Healthcare Administrator Name Role Phone Ravinder Street MD Unavailable [phone] MD Unavailable [phone] Andrew Dawson MD Primary Care Provider [phone] Vinicio Dinero MD Primary Care Provider [phone] Encounter Details Date Type Department Care Team (Late st Contact Info) Description 08/12/[address] [facility] [address] [place] [address] Jony Hernandez MD [address] OF PULMONARY/[place] [address] Social History Tobacco Use Types Packs/Day Years [...] Instructions* Brittany Brown - 08/12/2021 8:13 AM DRAW TENDER Patient's sister, Felisa called and said they are both sick today. She would ideally like to switch to TELEMED today. Can you call her at [phone]? 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
--- OUTSIDE RECORDS SUMMARY | 2024-12-29 21:36 | XMS_ITS | Encounter Summary ---
Author Organization [facility] Address [address] [place] [address] Phone Care Team Providers Care Magazine Feeder Name Role Phone Andrew Dawson MD Primary Care Provider Vinicio Dinero MD Primary Care Provider [phone] Marisa Carcamo PAC Unavailable Marisa Carcamo PAC Primary Care Pro vider Reason for Visit * Reason Comments Medication Refill alprazolam Encounter Details Date Type Department Care Team (Late st Contact Info) Description 07/27/2020 Refill [facility] [place] [address] Andrew Dawson MD [address] [address] Medication Refill (alprazolam) Social History Tobacco Use [...] and approval. Thank you. GISEL Reynoso MA Electromechanical Assembler - Medication Management E REPAIRER RECLAMATION * Telephone Encounter - Kari Rose RN [...] 2 months ago Chronic atrial fibrillation (HCC) [facility] Family Medicine - Andrew Lopez MD 3 months ago Chronic atrial fibrillation (HCC) [facility] Family [facility] - Sera William APN PROJECT MANAGER RETAIL 3 months ago Tachycardia [facility] - Sera William APN PROJECT MANAGER RETAIL 4 months ago Chronic bilateral low back pain without sciatica [facility] Family [facility] - Andrew Lopez MD 6 months ago Liver lesion [facility] Family [facility] - Andrew Lopez MD Upcoming Appointments Future Appointments In [address] MRI, [facility] NEW ACCOUNT INTERVIEWER - Recent and Past Visits Recent Visits Date Type Provider Dept 05/12/20 Office Visit Andrew Dawson MD [facility] 04/17/20 Office Visit Sera Spring APN, JOY [facility] 04/15/20 Office Visit [facility] APN, JOY [facility]20 Office Visit Andrew Dawson MD [facility] 01/08/20 [facility]19 [facility] 10/09/19 Office Visit Sera Spring APN, PROJECT MANAGER RETAIL [facility] 08/26/19 Office Visit Sánchez Jenkins APN, PROJECT MANAGER RETAIL [facility] 08/20/19 Office Visit Andrew Dawson MD [facility] Showing recent visits within past 460 days with a meds authorizing provider and meeting all other requirements Future Appointments No visits were found meeting these conditions. Showing future appointments within next 90 days with a meds authorizing provider and meeting all other requirements E REPAIRER RECLAMATION documented in this encounter Plan of Treatment Not on file documented as of this encounter Visit Diagnoses Not on filedocumented in this encounter Additional Health Concerns Infection Onset Date Last Indicated Resolved Time COVID - 19 08/02/2021 08/02/2021 08/22/2021 12:1 6 AM VALVE REPAIRER RECLAMATION COVID - 19 11/03/2021 11/03/2021 11/23/2021 12:1 6 AM VALVE REPAIRER RECLAMATION Assessment Noted Time PHQ-9 Depression Total Score: 0 03/12/20 12:31 PM CDT documented as of this encounter Care Teams Magazine Feeder Relationship Specialty Start Date End Date Andrew Dawson MD [address] [address] PCP - General Family Medicine 11/08/16 01/29/21 Vinicio Dinero MD [address] [place] [address] PCP - General Internal Medicine 01/30/21 07/26/21 Marisa Carcamo PAC [address] [place] [address] PCP - General Physician Shell Molder 07/27/21 12/25/24 Marisa Carcamo, [facility] [address] [place] [address] Physician Shell Molder Physician Shell Molder 01/30/21 documented as of this encounter
--- OUTSIDE RECORDS SUMMARY | 2024-12-29 21:36 | XMS_ITS | Encounter Summary ---
Author Organization [facility] Address [address] [place] [address] Phone Care Team Providers Care Geological Specialist Name Role Phone Andrew Dawson MD Primary Care Provider [phone] Vinicio Dinero MD Primary Care Provider [phone] Marisa Carcamo PAC Unavailable Marisa Carcamo PAC Primary Care Pro vider Reason for Visit * Reason Onset Date Comments Medication Management 10/16/2020 transfer t o triage - see note Breathing Problem 10/16/2020 difficulties b reathing Altered Mental Status 10/16/2020 confusion Encounter Details Date Type Department Care Team (Late st Contact Info) Description 10/16/2020 Nurse Triage [facility] [place] [address] Andrew Dawson MD [address] [address] Medication Management (transfer to triage - see [...] COVID-19? No / Unsure 10/17/2020 2:19 PM REGIONAL FLATBED TRUCK DRIVER documented as of this encounter Miscellaneous Notes [...] PRD. PRD states: none. Routing to PCP. ONAL FLATBED TRUCK DRIVER ONAL FLATBED TRUCK DRIVER * Telephone Encounter - Kari Rose RN - 10/16/2020 2:53 PM CST Call placed to patient with this message. ONAL FLATBED TRUCK DRIVER * Telephone Encounter - Andrew Dawson MD - 10/16/2020 9:06 AM CST Please call. No , I wont just order antibiotics. Go to ed to have yourself properly evaluated. ONAL FLATBED TRUCK DRIVER * Telephone Encounter - Itzel Dailey RN - 10/16/2020 8:15 AM CST Felisa calling (PRD not in chart) Patient went to [facility] last Monday, 2 days ago Had trouble [...] advise. Thank you Pharmacy and allergies verified. ONAL FLATBED TRUCK DRIVER * Telephone Encounter - Damaris Fontaine - 10/16/2020 8:03 AM CST Felisa ( not on PRD) Call patient was in ER yesterday asking for an antibiotic for patient Transfer to triage line ONAL FLATBED TRUCK DRIVER documented in this encounter Plan of Treatment Not on file documented as of this encounter Visit Diagnoses Not on filedocumented in this encounter Additional Health Concerns Infection Onset Date Last Indicated Resolved Time COVID - 19 08/02/2021 08/02/2021 08/22/2021 12:1 6 AM REGIONAL FLATBED TRUCK DRIVER COVID - 19 11/03/2021 11/03/2021 11/23/2021 12:1 6 AM REGIONAL FLATBED TRUCK DRIVER Assessment Noted Time PHQ-9 Depression Total Score: 0 08/28/20 20 11:08 AM REGIONAL FLATBED TRUCK DRIVER documented as of this encounter Care Teams Geological Specialist Relationship Specialty Start Date End Date Andrew Dawson MD [address] [address] PCP - General Family Medicine 11/08/16 01/29/21 Vinicio Dinero MD [address] [place] [address] PCP - General Internal Medicine 01/30/21 07/26/21 Marisa Carcamo, PAC [address] [place] [address] PCP - General Physician Fire Alarm Dispatcher 07/27/21 12/25/24 Marisa Carcamo, PAC [address] [place] [place] [address] Physician Fire Alarm Dispatcher Physician Fire Alarm Dispatcher 01/30/21 documented as of this encounter
--- OUTSIDE RECORDS SUMMARY | 2024-12-29 21:36 | XMS_ITS | Encounter Summary ---
Author Organization [facility] Address [address] [place] [address] Phone Care Team Providers Care Medicaid Plan Compliance Director Name Role Phone Marisa Carcamo PAC Primary Care Pro vider Reason for Visit * Reason Comments Medication Refill Encounter Details Date Type Department Care Team (Late st Contact Info) Description 09/23/2021 Refill [facility] - Internal Medicine - [place] [address] [place] [address] Marisa Carcamo, [facility] [address] [facility] [place] [address] Medication Refill Social History Tobacco [...] COVID-19? No / Unsure 08/31/2021 9:53 AM CHORE TENDER documented as of this encounter Miscellaneous Notes * Telephone Encounter - Zahira Butt RN - 09/23/2021 12:48 PM CHORE TENDER Requested Prescriptions Pending Prescriptions Disp Refills busPIRone [...] with Buspirone for at least 6 months E TENDER documented in this encounter Plan of Treatment Not on file documented as of this encounter Visit Diagnoses Diagnosis Anxiety Anxiety state, unspecified documented in this encounter Additional Health Concerns Infection Onset Date Last Indicated Resolved Time COVID - 19 11/03/2021 11/03/2021 11/23/2021 12:1 6 AM CHORE TENDER Assessment Noted Time PHQ-9 Depression Total Score: 11 021 3:00 PM CHORE TENDER documented as of this encounter Care Teams Medicaid Plan Compliance Director Relationship Specialty Start Date End Date Marisa Carcamo PAC [address] [place] [address] PCP - General Physician Oil Burner Journeyman 07/27/21 12/25/24 documented as of this encounter
--- OUTSIDE RECORDS SUMMARY | 2024-12-29 21:36 | XMS_ITS | Encounter Summary ---
Author Organization [facility] Address [address] [facility] [place] [address] Care Team Providers Care Portfolio Mgr Name Role Phone Ravinder Street MD Unavailable [phone] MD Unavailable [phone] Andrew Dawson MD Primary Care Provider [phone] Vinicio Dinero MD Primary Care Provider [phone] Reason for Visit * Reason Onset Date Comments MEDICATION REFILL 11/25/2020 Encounter Details Date Type Department Care Team (Late st Contact Info) Description 11/25/2020 Refill [facility] [address] [place] [address] Jony Hernandez MD [address] [facility] [facility] [address] MEDICATION REFILL Social History Tobacco Use Types [...] documented as of this encounter Care Teams Portfolio Mgr Relationship Specialty Start Date End Date Andrew Dawson MD PCP - General 09/11/18 12/27/21 Vinicio Dinero MD [address] [place] [address] PCP - General 12/28/[address] MD Resident - PCP Student Resident 08/27/[address] MD Student Resident 08/28/18 documented as of this encounter
--- OUTSIDE RECORDS SUMMARY | 2024-12-29 21:36 | XMS_ITS | Encounter Summary ---
Author Organization [facility] Address [address] [place] [address] Phone Care Team Providers Care Transfer Agent Name Role Phone Marisa Carcamo PAC Primary Care Pro vider Reason for Visit * Reason Comments Medication Refill Encounter Details Date Type Department Care Team (Late st Contact Info) Description 10/26/2021 Refill [facility] - [facility] - [place] [address] [place] [address] Marisa Carcamo, PAC [address] [place] [address] Medication Refill Social History Tobacco [...] Dept 08/02/21 Office Visit [facility] Office Visit Marisa Carcamo PAC [facility] Showing recent visits within past 182 days and meeting all other requirements Future Appointments No visits were found meeting these conditions. Showing future appointments within next 90 days and meeting all other requirements Passed - Patient has established therapy with Buspirone for at least 6 months URCE ECONOMIST * Telephone Encounter - Keerthi Moore RN [...] Dept 08/02/21 Office Visit Marisa [facility]camo PAC [facility]21 Office Visit Marisa Carcamo PAC [facility] Showing recent visits within past 182 days and meeting all other requirements Future Appointments No visits were found meeting these conditions. Showing future appointments within next 90 days and meeting all other requirements Passed - Patient has established therapy with Buspirone for at least 6 months URCE ECONOMIST documented in this encounter Plan of Treatment Scheduled Orders Name Type Priority Associated Diagnoses Orde r Schedule URINE DRUG SCREEN Lab Routine Anxiety Expected: 11/09/2021, Expires: 11/09/2022 documented as of this encounter Visit Diagnoses Diagnosis Anxiety- Primary Anxiety state, unspecified documented in this encounter Additional Health Concerns Infection Onset Date Last Indicated Resolved Time COVID - 19 11/03/2021 11/03/2021 11/23/2021 12:1 6 AM RESOURCE ECONOMIST Assessment Noted Time PHQ-9 Depression Total Score: 11 021 3:00 PM RESOURCE ECONOMIST documented as of this encounter Care Teams Transfer Agent Relationship Specialty Start Date End Date Marisa Carcamo PAC [address] [place] [address] PCP - General Physician Metal Furniture Assembler 07/27/21 12/25/24 documented as of this encounter
--- OUTSIDE RECORDS SUMMARY | 2024-12-29 21:36 | XMS_ITS | Clinical Summary ---
Author Organization [facility] Address [address] [place] [address] Phone Care Team Providers Care Kiln Firer Helper Name Role Phone Unavailable Primary Care Provider [...] for Spasm. 30 Tablet 10/17/2019 10:54 AM SCALE ASSEMBLY SET UP WORKER 0 Active Lidocaine 4 % Adhesive Patch, Medicated Apply 1 patch only once for up to 12 hours within a 24 hour period to Left side of chest over area of most discomfort 10 Patch 10/17/2019 10:54 AM SCALE ASSEMBLY SET UP WORKER 0 Active Active Problems Problem Noted Date [...] Comments Blood Pressure 102/69 10/17/2019 8:32 AM SCALE ASSEMBLY SET UP WORKER Pulse 63 10/17/2019 8:32 AM SCALE ASSEMBLY SET UP WORKER Temperature 36.8 C (98.2 F) 10/17/2019 8:32 AM SCALE ASSEMBLY SET UP WORKER Respiratory Rate 13 10/17/2019 8:32 AM SCALE ASSEMBLY SET UP WORKER Oxygen Saturation 93% 10/17/2019 8:32 AM SCALE ASSEMBLY SET UP WORKER Inhaled Oxygen Concentration - - Weight 68.2 kg (150 lb 4.8 oz) 10/17/2019 2:47 A M SCALE ASSEMBLY SET UP WORKER Height 172.7 cm (5' 8 ) 10/17/2019 2:47 AM SCALE ASSEMBLY SET UP WORKER Body Mass Index 22.85 10/17/2019 2:47 AM SCALE ASSEMBLY SET UP WORKER Plan of Treatment Health Maintenance Due Date [...]
--- OUTSIDE RECORDS SUMMARY | 2024-12-29 21:36 | XMS_ITS | Encounter Summary ---
Author Organization [facility] Address [address] [place] [address] Phone Care Team Providers Care Music Therapy Specialist Name Role Phone Andrew Dawson MD Primary Care Provider Vinicio Dinero MD Primary Care Provider [phone] Marisa Carcamo PAC Unavailable Marisa Carcamo PAC Primary Care Pro vider Reason for Visit * Reason Comments Medication Refill Encounter Details Date Type Department Care Team (Late st Contact Info) Description 10/05/2020 Refill [facility] [address] [place] [address] Andrew Dawson MD [address] [address] Medication Refill Social History Tobacco Use Types [...] 10/06/2020 12:01 PM CST Prescription pending signature MAN * Telephone Encounter - Tatiana Em RN - 10/05/2020 4:26 PM CST Sent to PCP MAN * Telephone Encounter - Tatiana Em RN [...] Recent Outpatient Visits 1 month ago [facility]N, STATION INSTALLATION SUPERVISOR 4 months ago Chronic atrial fibrillation (HCC) [facility] - Andrew Lopez MD 5 months ago Chronic atrial fibrillation (HCC) [facility] - Sera William APN, STATION INSTALLATION SUPERVISOR 5 months ago [place]achy[place] [facility] [place], STATION INSTALLATION SUPERVISOR 6 months ago Chronic bilateral low back pain without sciatica [facility] Andrew Lindquist MD Upcoming Appointments JAVA GROOVY DEVELOPER - Recent and Past Visits Recent Visits Date Type Provider Dept 08/28/20 Office Visit Sera Spring APN, STATION INSTALLATION SUPERVISOR [facility] [place] 05/12/20 Office Visit [facility] 04/17/20 Office Visit Sera Spring APN, STATION INSTALLATION SUPERVISOR [facility] [place] 04/15/20 Office Visit Sera Spring APN, STATION INSTALLATION SUPERVISOR [facility] [place] 03/12/20 Office Visit Andrew Dawson MD [facility] [place] 01/08/20 Telemedicine Andrew Dawson MD [facility] 12/31/19 Telemedicine Andrew Dawson MD [facility] 10/09/19 Office Visit Sera Spring APN, STATION INSTALLATION SUPERVISOR [facility] [place] 09/02/19 Office Visit Andrew Dawson MD [facility] 08/26/19 Office Visit Sánchez Jenkins APN, STATION INSTALLATION SUPERVISOR [facility] Showing recent visits within past 460 days with a meds authorizing provider and meeting all other requirements Future Appointments No visits were found meeting these conditions. Showing future appointments within next 90 days with a meds authorizing provider and meeting all other requirements MAN documented in this encounter Plan of Treatment Not on file documented as of this encounter Visit Diagnoses Diagnosis Anxiety Anxiety state, unspecified documented in this encounter Additional Health Concerns Infection Onset Date Last Indicated Resolved Time COVID - 19 08/02/2021 08/02/2021 08/22/2021 12:1 6 AM HOG MAN COVID - 19 11/03/2021 11/03/2021 11/23/2021 12:1 6 AM HOG MAN Assessment Noted Time PHQ-9 Depression Total Score: 0 08/28/20 11:08 AM HOG MAN documented as of this encounter Care Teams Music Therapy Specialist Relationship Specialty Start Date End Date Andrew Dawson MD [address] [address] PCP - General Family Medicine 11/08/16 01/29/21 Vinicio Dinero MD [address] [place] [address] PCP - General Internal Medicine 01/30/21 07/26/21 Marisa Carcamo PAC [address] [place] [address] PCP - General Physician Loading Unit Operator Powder Charging 07/27/21 12/25/24 Marisa Carcamo, PAC [address] [place] [address] Physician Loading Unit Operator Powder Charging Physician Loading Unit Operator Powder Charging 01/30/21 documented as of this encounter
--- OUTSIDE RECORDS SUMMARY | 2024-12-29 21:36 | XMS_ITS | Encounter Summary ---
Author Organization [facility] Address [address] [place] [address] Phone Care Team Providers Care Auto Body Service Mechanic Name Role Phone Andrew Dawson MD Primary Care Provider Vinicio Dinero MD Primary Care Provider [phone] Marisa Carcamo PAC Unavailable Marisa Carcamo PAC Primary Care Pro vider Reason for Visit * Reason Comments Medication Refill Encounter Details Date Type Department Care Team (Late st Contact Info) Description 01/19/2021 Refill [facility] #2 [place] [address] Andrew Dawson MD #[address] [address] Medication Refill Social History Tobacco Use Types [...] Recent Outpatient Visits 1 week ago Anxiety [facility] - Andrew Lopez MD 4 weeks ago Anxiety [facility] - Andrew Lopez MD 4 months ago Anxiety [facility] - Sera William APN, CNP 8 months ago Chronic atrial fibrillation (HCC) [facility] Andrew Lopez MD 9 months ago Chronic atrial fibrillation (HCC) [facility] - Sera William APN, JOY Upcoming Appointments RIDER TICKET WORKER - Recent and Past Visits Recent Visits [...] [facility] 12/31/19 Telemedicine Andrew Dawson MD [facility] Showing recent visits within past 460 [...] - 08/02/2021 08/02/2021 08/22/2021 12:1 6 AM VETERINARY LIVESTOCK INSPECTOR COVID - 19 11/03/2021 11/03/2021 11/23/2021 12:1 6 AM VETERINARY LIVESTOCK INSPECTOR Assessment Noted Time PHQ-9 Depression Total Score: 0 08/28/20 11:08 AM VETERINARY LIVESTOCK INSPECTOR documented as of this encounter Care Teams Auto Body Service Mechanic Relationship Specialty Start Date End Date Andrew Dawson MD #[address] [address] PCP - General Family Medicine 11/08/16 01/29/21 Vinicio Dinero MD [address] [place] [address] PCP - General Internal Medicine 01/30/21 07/26/21 Marisa Carcamo, PAC [address] [place] [address] PCP - General Physician Professor Of Literature 07/27/21 12/25/24 Marisa Carcamo, PAC [address] [place] [address] Physician Professor Of Literature Physician Professor Of Literature 01/30/21 documented as of this encounter
--- OUTSIDE RECORDS SUMMARY | 2024-12-29 21:36 | XMS_ITS | Encounter Summary ---
Author Organization [facility] Address [address] [place] [address] Phone Care Team Providers Care Package Reinspector Name Role Phone Andrew Dawson MD Primary Care Provider [phone] Vinicio Dinero MD Primary Care Provider [phone] Marisa Carcamo PAC Unavailable Marisa Carcamo PAC Primary Care Pro vider Reason for Visit * Reason Comments Medication Refill Encounter Details Date Type Department Care Team (Late st Contact Info) Description 09/09/2020 Refill [facility] Family [facility] #2 [place] [id number] Sera Spring APRN, STIPPLER #[address] [address] Medication Refill Social History [...] COVID-19? No / Unsure 08/28/2020 10:46 AM NATURAL RESOURCES MANAGER documented as of this encounter Miscellaneous Notes * Telephone Encounter - Andrew Dawson MD - 09/10/2020 8:42 AM CST Prescription pending signature RAL RESOURCES MANAGER * Telephone Encounter - Keerthi Moore RN [...] Recent Outpatient Visits 1 week ago Anxiety [facility] - Sera William APN, STIPPLER 4 months ago Chronic atrial fibrillation (HCC) [facility] - Andrew Lopez MD 4 months ago Chronic atrial fibrillation (HCC) [facility] - Sera William APN, STIPPLER 4 months ago Tachycardia [facility] - Sera William APN, STIPPLER 6 months ago Chronic bilateral low back pain without sciatica [facility] - Andrew Lopez MD Upcoming Appointments TAR POT WORKER - Recent and Past Visits Recent Visits Date Type Provider Dept 08/28/20 Office Visit Sera Spring APN, CNP [facility] 05/12/20 Office Visit Andrew Dawson MD [facility] 04/17/20 Office Visit Sera Spring APN, CNP [facility] [place] 04/15/20 Office Visit Sera Spring APN, STIPPLER [facility] [place] 03/12/20 [facility] [place] 01/08/20 [facility] 12/31/19 Telemedicine [facility] 10/09/19 Office Visit [facility] Spring APN, STIPPLER [facility] Office Visit Andrew Dawson MD [facility] [place] 08/26/19 Office Visit Sánchez Jenkins APN, STIPPLER [facility] Showing recent visits within past 460 days with a meds authorizing provider and meeting all other requirements Future Appointments No visits were found meeting these conditions. Showing future appointments within next 90 days with a meds authorizing provider and meeting all other requirements RAL RESOURCES MANAGER documented in this encounter Plan of Treatment Not on file documented as of this encounter Visit Diagnoses Diagnosis Anxiety Anxiety state, unspecified documented in this encounter Additional Health Concerns Infection Onset Date Last Indicated Resolved Time COVID - 19 08/02/2021 08/02/2021 08/22/2021 12:1 6 AM NATURAL RESOURCES MANAGER COVID - 19 11/03/2021 11/03/2021 11/23/2021 12:1 6 AM NATURAL RESOURCES MANAGER Assessment Noted Time PHQ-9 Depression Total Score: 0 08/28/20 11:08 AM NATURAL RESOURCES MANAGER documented as of this encounter Care Teams Package Reinspector Relationship Specialty Start Date End Date Andrew Dawson MD #[address] [address] PCP - General Family Medicine 11/08/16 01/29/21 Vinicio Dinero MD [address] [place] [address] PCP - General Internal Medicine 01/30/21 07/26/21 Marisa Carcamo [facility] [address] [place] [address] PCP - General Physician Speck Dyer 07/27/21 12/25/24 Marisa Carcamo, FOREST [address] [place] [address] Physician Speck Dyer Physician Speck Dyer 01/30/21 documented as of this encounter
--- OUTSIDE RECORDS SUMMARY | 2024-12-29 21:36 | XMS_ITS | Encounter Summary ---
Author Organization [facility] Address [address] [place] [address] Phone Care Team Providers Care Hydraulic Barker Operator Name Role Phone Andrew Dawson MD Primary Care Provider [phone] Vinicio Dinero MD Primary Care Provider [phone] Marisa Carcamo PAC Unavailable Marisa Carcamo PAC Primary Care Pro vider Reason for Visit * Reason Onset Date Comments Medication Refill Medication Refill 11/13/2020 Encounter Details Date Type Department Care Team (Late st Contact Info) Description [facility]/13/[facility] [address] [place] [address] Andrew Dawson MD [address] [address] Medication Refill; Medication Refill Social [...] COVID-19? No / Unsure 10/17/2020 2:19 PM NETWORKING SPECIALIST documented as of this encounter Plan of Treatment Not on file documented as of this encounter Visit Diagnoses Diagnosis Anxiety Anxiety state, unspecified documented in this encounter Additional Health Concerns Infection Onset Date Last Indicated Resolved Time COVID - 19 08/02/2021 08/02/2021 08/22/2021 12:1 6 AM NETWORKING SPECIALIST COVID - 19 11/03/2021 11/03/2021 11/23/2021 12:1 6 AM NETWORKING SPECIALIST Assessment Noted Time PHQ-9 Depression Total Score: 0 08/28/20 11:08 AM NETWORKING SPECIALIST documented as of this encounter Care Teams Hydraulic Barker Operator Relationship Specialty Start Date End Date Andrew Dawson MD #[address] [address] PCP - General Family Medicine 11/08/16 01/29/21 Vinicio Dinero MD [address] [place] [address] PCP - General Internal Medicine 01/30/21 07/26/21 Marisa Carcamo, [facility] [address] [place] [address] PCP - General Physician Barrel Inspector 07/27/21 12/25/24 Marisa Carcamo, [facility] [address] [place] [address] Physician Barrel Inspector Physician Barrel Inspector 01/30/21 documented as of this encounter
--- OUTSIDE RECORDS SUMMARY | 2024-12-29 21:36 | XMS_ITS | Encounter Summary ---
Author Organization [facility] Address [address] [place] [address] Phone Care Team Providers Care Senior Planning Analyst Name Role Phone Andrew Dawson MD Primary Care Provider Vinicio Dinero MD Primary Care Provider [phone] Marisa Carcamo PAC Unavailable Marisa Carcamo PAC Primary Care Pro vider Reason for Visit * Reason Comments Medication Refill Encounter Details Date Type Department Care Team (Late st Contact Info) Description 09/14/2020 Refill [facility] #[address] [place] [address] Andrew Dawson MD #[address] [address] Medication Refill Social History Tobacco Use Types [...] COVID-19? No / Unsure 08/28/2020 10:46 AM FIELD SALES TRAINER documented as of this encounter Miscellaneous Notes [...] Receipt confirmed by pharmacy (09/10/2020 ??8:42 AM FIELD SALES TRAINER) ALPRAZolam (XANAX) 0.5 MG Tablet [[id number]] 0842 D SALES TRAINER documented in this encounter Plan of Treatment Not on file documented as of this encounter Visit Diagnoses Diagnosis Anxiety Anxiety state, unspecified documented in this encounter Additional Health Concerns Infection Onset Date Last Indicated Resolved Time COVID - 19 08/02/2021 08/02/2021 08/22/2021 12:1 6 AM FIELD SALES TRAINER COVID - 19 11/03/2021 11/03/2021 11/23/2021 12:1 6 AM FIELD SALES TRAINER Assessment Noted Time PHQ-9 Depression Total Score: 0 08/28/20 11:08 AM FIELD SALES TRAINER documented as of this encounter Care Teams Senior Planning Analyst Relationship Specialty Start Date End Date Andrew Dawson MD #[address] [address] PCP - General Family Medicine 11/08/16 01/29/21 Vinicio Dinero MD [address] [facility] [address] PCP - General Internal Medicine 01/30/21 07/26/21 Marisa Carcamo, PAC [address] [place] [address] PCP - General Physician Woodworking Machine Offbearer 07/27/21 12/25/24 Marisa Carcamo, PAC [address] [place] [address] Physician Woodworking Machine Offbearer Physician Woodworking Machine Offbearer 01/30/21 documented as of this encounter
--- OUTSIDE RECORDS SUMMARY | 2024-12-29 21:36 | XMS_ITS | Encounter Summary ---
Author Organization [facility] Address [address] [place] [address] Phone Care Team Providers Care Topology Teacher Name Role Phone Andrew Dawson MD Primary Care Provider Vinicio Dinero MD Primary Care Provider [phone] Marisa Carcamo PAC Unavailable Marisa Carcamo PAC Primary Care Pro vider Reason for Visit * Reason Comments Medication Refill Encounter Details Date Type Department Care Team (Late st Contact Info) Description 12/21/2020 Refill [facility] #2 [place] [address] Andrew Dawson MD #[address] [address] Medication Refill Social History Tobacco Use Types [...] Dr Dawson * Telephone Encounter - Keerthi Moore RN - 12/21/2020 3:07 PM CDT Quantity [...] Recent Outpatient Visits 3 months ago Anxiety [facility] - Sera William APN, TRANSMISSION ENGINEER 7 months ago Chronic atrial fibrillation (HCC) [facility] - Andrew Lopez MD 8 months ago Chronic atrial fibrillation (HCC) [facility] - Sera William APN TRANSMISSION ENGINEER 8 months ago Tachycardia [facility] - Sera William APN, TRANSMISSION ENGINEER 9 months ago Chronic bilateral low back pain without sciatica [facility] - Andrew Lopez MD Upcoming Appointments CREW ATTENDANT - Recent and Past Visits Recent Visits Date Type Provider Dept 08/28/20 Office Visit Sera Spring APN, TRANSMISSION ENGINEER [facility] 05/12/20 Office Visit Andrew Dawson MD [facility] 04/17/20 Office Visit Sera Sprign APN, TRANSMISSION ENGINEER [facility] 04/15/20 Office Visit Sera Spring APN, TRANSMISSION ENGINEER [facility] 03/12/20 Office Visit Andrew Dawson MD [facility] 01/08/20 Telemedicine Andrew Dawson MD [facility] 12/31/19 Telemedicine Andrew Dawson MD [facility] 10/09/19 Office Visit Sera Spring APN, TRANSMISSION ENGINEER [facility] Showing recent visits within past 460 days [...] 19 08/02/2021 08/02/2021 08/22/2021 12:1 6 AM CHILDREN'S INSTITUTION ATTENDANT COVID - 19 11/03/2021 11/03/2021 11/23/2021 12:1 6 AM CHILDREN'S INSTITUTION ATTENDANT Assessment Noted Time PHQ-9 Depression Total Score: 0 08/28/20 11:08 AM CHILDREN'S INSTITUTION ATTENDANT documented as of this encounter Care Teams Topology Teacher Relationship Specialty Start Date End Date Andrew Dawson MD #[address] [address] PCP - General Family Medicine 11/08/16 01/29/21 Vinicio Dinero MD [address] [place] [address] PCP - General Internal Medicine 01/30/21 07/26/21 Marisa Carcamo, PAC [address] [place] [address] PCP - General Physician Chemical Analyst 07/27/21 12/25/24 Mraisa Carcamo, PAC [address] [place] [address] Physician Chemical Analyst Physician Chemical Analyst 01/30/21 documented as of this encounter
--- OUTSIDE RECORDS SUMMARY | 2024-12-29 21:36 | XMS_ITS | Encounter Summary ---
Author Organization [facility] Address [address] [place] [address] Care Team Providers Care Magnetic Tape Composer Operator Name Role Phone Mushtaq Blake MD Unavailable [phone] Miguel Ángel Sanchez MD Unavailable [phone] Monae Velasquez MD Primary Care Provider Emelyn Curtis MD Unavailable [phone] Heena Stephenson MD Unavailable [phone] Jeffery Bro MD Unavailable [phone] Anali Flores MD Unavailable [phone] Alessandro Dominguez NP Unavailable [phone] Luciano Rodriguez MD Unavailable Encounter Details Date Type Department Care Team (Late st Contact Info) Description 01/05/2023 Telephone [facility] - Interventional Radiology [address] [place] [address] Amanda Valenzuela, RN Social History [...] on file Legal Sex Male 2:00 AM REMEDIATION TECHNICIAN Gender Identity Not on file Sexual Orientation Not on file 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 Not on file Not on file documented as of this encounter Plan of Treatment Not on file documented as of this encounter Results * (ABNORMAL) Basic metabolic panel (01/10/2023 9:41 AM CDT) Sodium 139 135 - 145 mmol/L [facility] Potassium, pl 4.5 3.3 - 4.9 mmol/L [facility] Chloride 106 97 - 110 mmol/L [facility] CO2 27 22 - 32 mmol/L [facility] Anion gap 6 2 - 15 mmol/L [facility] BUN 27(H) 8 - 25 mg/dL [facility] Creatinine 1.54(H) 0.80 - 1.30 mg/dL [facility] Glucose 97 70 - 199 mg/dL [facility] Comment: Interpretive Data Fasting glucose >/= [...] 2022. Calcium 9.3 8.5 - 10.3 mg/dL [facility] Blood 01/10/2023 9:41 AM CDT 01/10/2023 10:19 AM CDT us Oscar Mcnair MD LAB BLOOD ORDERABLES Gladys l Result Performing Organization Address [place] Co de Phone Number [facility] [address] [employer] [place], [place] [id number] * (ABNORMAL) CBC with auto differential (01/10/2023 9:41 AM CDT) WBC 10.5(H) 3.8 - 9.9 K/cumm [facility] Hgb 14.9 13.0 - 17.5 g/dL [facility] Hct 45.3 38.9 - 50.3 % [facility] Plt 154 150 - 400 K/cumm [facility] MPV 10.3 9.1 - 12.3 fL [facility] RBC 4.39 4.30 - 5.80 M/cumm [facility] MCV 103.2(H) 81.3 - 96.4 fL [facility] MCH 33.9(H) 27.1 - 33.3 pg [facility] MCHC 32.9 32.3 - 35.7 g/dL [facility] RDW CV 13.5 11.1 - 14.9 % [facility] RDW SD 51.4(H) 35.7 - 48.1 fL [facility] NRBC abs 0.00 0.00 - 0.01 K/cumm [facility] Blood 01/10/2023 9:41 AM CDT 01/10/2023 10:19 AM CDT Oscar Mcnair MD LAB BLOOD ORDERABLES Gladys l Result Performing Organization Address [place]/ZIP Co de Phone Number [facility] [address] Department [employer] [place], [place] [id number] documented in this encounter Visit Diagnoses Diagnosis Hepatocellular carcinoma (HCC)- Primary Malignant neoplasm of liver, primary documented in this encounter Additional Health Concerns Infection Onset Date Last Indicated Resolved Time COVID: Suspected 05/04/2023 05/04/2023 05/04/2023 8:26 PM CDT COVID: Suspected 03/04/2024 03/04/2024 03/04/2024 4:06 PM CDT documented as of this encounter Care Teams Magnetic Tape Composer Operator Relationship Specialty Start Date End Date Monae Velasquez MD [address] [place] [address] PCP - General Family Practice 12/14/22 Mushtaq Blake MD Medical Oncologist/Hematologi st Hematology and Oncology 09/09/22 Miguel Ángel Sanchez MD [address] [place]PT [place] [address] Consulting Physician Radiation Oncology 12/09/22 Emelyn Curtis MD [address] DIV IM MEDICAL ONCOLOGY, [address], [address]B, [address]C [place] [address] Consulting Physician Medical Oncology 04/17/23 Heena Stephenson MD [address] [place] [address] Fellow General Surgery 04/17/23 Jeffery Bro MD [address] [address] Referring Physician Gastroenterology 05/16/23 Anali Flores MD [address] [place] [address] Consulting Physician Cardiology 05/22/23 Alessandro Dominguez ENGAGEMENT [place] [address] [place] [address] Nurse Practitioner Pain Management 05/22/23 [place] [address] [place] [address] Consulting Physician Interventional Radiology 03/14/24 documented as of this encounter
--- OUTSIDE RECORDS SUMMARY | 2024-12-29 21:36 | XMS_ITS | Encounter Summary ---
Author Organization [facility] Address [address] [place] [address] Phone Care Team Providers Care Electrician Assistant Name Role Phone Chiquis Carcamoney Jerrica PAC Primary Care Pro vider Reason for Visit * Reason Comments Medication Refill Encounter Details Date Type Department Care Team (Late st Contact Info) Description 05/23/2022 Refill [facility] Family [facility] #2 [place] [address] Andrew Dawson MD #[address] [address] Medication Refill Social History Tobacco Use Types [...] Office Visit Marisa Carcamo PAC [facility] 11/08/21 Office Visit Marisa Carcamo PAC [facility] 08/02/21 Office Visit Marisa Carcamo PAC [facility] 06/04/21 Office Visit Marisa Carcamo PAC [facility] Showing recent visits within past 365 days [...] Depression Total Score: 11 021 3:00 PM IMAGING TECHNOLOGIST documented as of this encounter Care Teams Electrician Assistant Relationship Specialty Start Date End Date Marisa Carcamo PAC [address] [place] [address] PCP - General Physician Climbing Guide 07/27/21 12/25/24 documented as of this encounter
--- OUTSIDE RECORDS SUMMARY | 2024-12-29 21:36 | XMS_ITS | Encounter Summary ---
Author Organization [facility] Healthcare Address [address] [place] [address] Care Team Providers Care Test Automation Architect Name Role Phone Vinicio Dinero MD Primary Care Provider [phone] Mushtaq Blake MD Unavailable [phone] Miguel Ángel Sanchez MD Unavailable [phone] Monae Velasquez MD Primary Care Provider Emelyn Curtis MD Unavailable [phone] Heena Stephenson MD Unavailable [phone] Jeffery Bro MD Unavailable [phone] Anali Flores MD Unavailable [phone] Alessandro Dominguez NP Unavailable [phone] Luciano Rodriguez MD Unavailable Encounter Details Date Type Department Care Team (Late st Contact Info) Description 09/23/[address] [facility] - Interventional Radiology [address] [place] [address] Amanda Valenzuela, ZANE Social History Tobacco Use Types Packs/Day Years Used Date Smoking Tobacco: Every Day Cigarettes Smokeless Tobacco: Never Comments[facility] counselor at this time. 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 [employer] Gender Identity Not on file Sexual Orientation [...] documented as of this encounter Care Teams Test Automation Architect Relationship Specialty Start Date End Date Vinicio Dinero MD [address] [place] [address] PCP - General Internal Medicine 10/20/21 12/13/22 Monae Velasquez MD [address] DEPT [place] [address] PCP - General Family Practice 12/14/22 Mushtaq Blake MD [address] [place] [address] Medical Oncologist/Hematologi st Hematology and Oncology 09/09/22 Miguel Ángel Sanchez MD [address] DEPT [place] [address] Consulting Physician Radiation Oncology 12/09/22 Emelyn Curtis MD [address] [facility] MEDICAL ONCOLOGY, [address]A, 7B, 7[place] [address] Consulting Physician Medical Oncology 04/17/23 Heena Stephenson MD [address] [facility] [address] 12B [place] [address] Fellow General Surgery 04/17/23 Jeffery Bro MD [address] [facility] [address] [place] [address] Referring Physician Gastroenterology 05/16/23 Anali Flores MD [address] [facility] [address] [place] [address] Consulting Physician Cardiology 05/22/23 [place] [address] [address] [place] [address] Nurse Practitioner Pain Management 05/22/23 [place] [address] [address] [place] [address] Consulting Physician Interventional Radiology 03/14/24 documented as of this encounter
--- OUTSIDE RECORDS SUMMARY | 2024-12-29 21:36 | XMS_ITS | Encounter Summary ---
Author Organization [facility] Address [address] [place] [address] Phone Care Team Providers Care Local Operator Name Role Phone Marisa Carcamo PAC Primary Care Pro vider Reason for Visit * Reason Comments Medication Refill Encounter Details Date Type Department Care Team (Late st Contact Info) Description 11/30/2021 Refill [facility] - Internal Medicine - [place] [address] [place] [address] Marisa Carcamo, [facility] [address] [facility] [place] [address] Medication Refill Social History Tobacco [...] COVID-19? No / Unsure 11/15/2021 11:09 AM KILN CHARGER documented as of this encounter Miscellaneous Notes [...] Office Visit Marisa Carcamo PAC [facility] 11/08/21 Office Visit Marisa Carcamo PAC [facility] 08/02/21 Office Visit Marisa Carcamo PAC [facility] 06/04/21 Office Visit Marisa Carcamo PAC [facility] Showing recent visits within past 182 days and meeting all other requirements Future Appointments Date Type Provider Dept 12/17/21 Appointment Marisa Carcamo PAC [facility] Showing future appointments within next 90 days and meeting all other requirements Passed - Has an encounter in the past 6 months with a depression, anxiety, adjustment disorder, OCD, or PTSD visit diagnosis CHARGER documented in this encounter Plan of Treatment Not on file documented as of this encounter Visit Diagnoses Not on filedocumented in this encounter Additional Health Concerns Assessment Noted Time PHQ-9 Depression Total Score: 11 021 3:00 PM KILN CHARGER documented as of this encounter Care Teams Local Operator Relationship Specialty Start Date End Date Marisa Carcamo PAC [address] [place] [address] PCP - General Physician Managing Manager 07/27/21 12/25/24 documented as of this encounter
--- OUTSIDE RECORDS SUMMARY | 2024-12-29 21:36 | XMS_ITS | Encounter Summary ---
Author Organization [facility] Address [address] [place] [address] Phone Care Team Providers Care Wage Hand Name Role Phone Andrew Dawson MD Primary Care Provider Vinicio Dinero MD Primary Care Provider [phone] Marisa Carcamo PAC Unavailable Marisa Carcamo PAC Primary Care Pro vider Reason for Visit * Reason Comments Medication Refill Encounter Details Date Type Department Care Team (Late st Contact Info) Description 08/26/2020 Refill [facility] - Family Medicine [facility] [address] [place] [address] Andrew Dawson MD [address] [address] Medication Refill Social History Tobacco Use Types [...] COVID-19? No / Unsure 08/28/2020 10:46 AM PAIL TESTER documented as of this encounter Miscellaneous Notes * Telephone Encounter - Eloy Felder - 08/26/2020 3:09 PM CST Pt called and I advised why med was refused. Called sister per comments to schedule appoitment.. Set up appt for 08-31-20 with WARDSPERSON 11:15 TESTER TESTER TESTER * Telephone Encounter - Keerthi Moore RN [...] Chronic atrial fibrillation (HCC) [facility] - Andrew Lopez MD 4 months ago Chronic atrial fibrillation (HCC) [facility] - Sera [facility] APN, SKATES OPERATOR 4 months ago Tachycardia [facility] [place] APN, SKATES OPERATOR 5 months ago Chronic bilateral low back pain without sciatica [facility] - Andrew Lopez MD 7 months ago Liver lesion [facility] Andrew Lopez MD Upcoming Appointments DERMATOLOGIST AND DERMATOPATHOLOGIST - Recent and Past Visits Recent Visits Date Type Provider Dept 05/12/20 Office Visit Andrew Dawson MD [facility] 04/17/20 Office Visit Sera Spring APN, SKATES OPERATOR [facility] [place] 04/15/20 Office Visit Sera Spring APN, SKATES OPERATOR [facility] [place] 03/12/20 Office Visit Andrew Dawson MD [facility] 01/08/20 Telemedicine Andrew Dawson MD [facility] 12/31/19 Telemedicine Andrew Dawson MD [facility] 10/09/19 Office Visit Sera Spring APN, SKATES OPERATOR [facility] [place] 09/02/19 Office Visit Andrew Dawson MD [facility] 08/26/19 Office Visit Sánchez Jenkins APN, SKATES [facility]ATOR [facility] Showing recent visits within past 460 days with a meds authorizing provider and meeting all other requirements Future Appointments No visits were found meeting these conditions. Showing future appointments within next 90 days with a meds authorizing provider and meeting all other requirements TESTER documented in this encounter Plan of Treatment Not on file documented as of this encounter Visit Diagnoses Not on filedocumented in this encounter Additional Health Concerns Infection Onset Date Last Indicated Resolved Time COVID - 19 08/02/2021 08/02/2021 08/22/2021 12:1 6 AM PAIL TESTER COVID - 19 11/03/2021 11/03/2021 11/23/2021 12:1 6 AM PAIL TESTER Assessment Noted Time PHQ-9 Depression Total Score: 0 03/12/20 12:31 PM CDT documented as of this encounter Care Teams Wage Hand Relationship Specialty Start Date End Date Andrew Dawson MD [address] [address] PCP - General Family Medicine 11/08/16 01/29/21 Vinicio Dinero MD [address] [place] [address] PCP - General Internal Medicine 01/30/21 07/26/21 Marisa Carcamo, PAC [address] [place] [address] PCP - General Physician Intermediate Project Manager 07/27/21 12/25/24 Marisa Carcamo, PAC [address] [place] [address] Physician Intermediate Project Manager Physician Intermediate Project Manager 01/30/21 documented as of this encounter
--- OUTSIDE RECORDS SUMMARY | 2024-12-29 21:36 | XMS_ITS | Encounter Summary ---
Author Organization [facility] Address [address] [place] [address] Phone Care Team Providers Care Meal Attendant Name Role Phone Marisa Carcamo PAC Primary Care Pro vider Reason for Visit * Reason Comments Medication Refill Encounter Details Date Type Department Care Team (Late st Contact Info) Description 05/23/2022 Refill [facility] - Internal Medicine - [place] [address] [place] [address] Marisa Carcamo, [facility] [address] [place] [address] Medication Refill Social History Tobacco [...] Depression Total Score: 11 021 3:00 PM TECHNICAL PROJECT LEAD documented as of this encounter Care Teams Meal Attendant Relationship Specialty Start Date End Date Marisa Carcamo PAC [address] [place] [address] PCP - General Physician Printed Circuit Boards Solder Leveler 07/27/21 12/25/24 documented as of this encounter
--- OUTSIDE RECORDS SUMMARY | 2024-12-29 21:36 | XMS_ITS | Encounter Summary ---
Author Organization [facility] Health Address [address] [place] [address] Care Team Providers Care Care Clinician Name Role Phone Ravinder tSreet MD Unavailable [phone] MD Unavailable [phone] Andrew Dawson MD Primary Care Provider [phone] Vinicio Dinero MD Primary Care Provider [phone] Reason for Visit * Reason Onset Date Comments MEDICATION REFILL 12/24/2018 Encounter Details Date Type Department Care Team (Late st Contact Info) Description 12/24/2018 Refill [facility] General Internal Medicine [address] [facility] [address] [place] [address] Andrew Dawson MD [address] [place] [address] [address] [place] [address] MEDICATION REFILL Social History Tobacco [...] documented as of this encounter Care Teams Care Clinician Relationship Specialty Start Date End Date Andrew Dawson MD PCP - General 09/11/18 12/27/21 Vinicio Dinero MD [address] [place] [address] PCP - General 12/28/[address] MD Resident - PCP Student Resident 08/27/[address] MD Student Resident 08/28/18 documented as of this encounter
--- OUTSIDE RECORDS SUMMARY | 2024-12-29 21:36 | XMS_ITS | Encounter Summary ---
Author Organization [facility] Address [address] [place] [address] Phone Care Team Providers Care Wood Chopper Name Role Phone Chiquis Carcamochon Donaldsonelle PAC Primary Care Pro vider Reason for Visit * Reason Comments Medication Refill Encounter Details Date Type Department Care Team (Late st Contact Info) Description 01/24/2022 Refill [facility] - Family Medicine [facility] #2 [place] [address] Anrdew Dawson MD #[address] [address] Medication Refill Social History Tobacco Use Types [...] Office Visit Marisa Carcamo, PAC [facility] 11/08/21 Office Visit Marisa Carcamo, PAC [facility] 08/02/21 Office Visit Marisa Carcamo, PAC [facility] 06/04/21 Office Visit Marisa Carcamo, PAC [facility] 03/19/21 Office Visit Marisa Carcamo, PAC [facility] 02/01/21 Office Visit Marisa Carcamo, PAC [facility] Showing recent visits within past 365 days [...] Depression Total Score: 11 021 3:00 PM MOLD MECHANIC documented as of this encounter Care Teams Wood Chopper Relationship Specialty Start Date End Date Marisa Carcamo PAC [address] [place] [address] PCP - General Physician Sleeve Turner 07/27/21 12/25/24 documented as of this encounter
--- OUTSIDE RECORDS SUMMARY | 2024-12-29 21:36 | XMS_ITS | Encounter Summary ---
Author Organization [facility] Address [address] [place] [address] Phone Care Team Providers Care Bonbon Dipper Name Role Phone Andrew Dawson MD Primary Care Provider [phone] Vinicio Dinero MD Primary Care Provider [phone] Marisa Carcamo PAC Unavailable Marisa Carcamo PAC Primary Care Pro vider Reason for Visit * Reason Comments Medication Refill Encounter Details Date Type Department Care Team (Late st Contact Info) Description 10/19/2020 Refill [facility] [address] [place] [address] Andrew Dawson MD [address] [address] Medication Refill Social History Tobacco Use Types [...] COVID-19? No / Unsure 10/17/2020 2:19 PM HAND FLATWORK FINISHER documented as of this encounter Miscellaneous Notes [...] Recent Outpatient Visits 1 month ago Anxiety [facility] - Sera William APN, CNP 5 months ago Chronic atrial fibrillation (HCC) [facility] - Andrew Lopez MD 6 months ago Chronic atrial fibrillation (HCC) [facility] - [facility] APN, CNP 6 months ago Tachycardia [facility] - [facility] [place] APN, CNP 7 months ago Chronic bilateral low back pain without sciatica [facility] Andrew Lopez MD Upcoming Appointments DAY CARE HOME MOTHER - Recent and Past Visits Recent Visits Date Type Provider Dept 08/28/20 Office Visit S[facility] [place] APN, CNP [facility] 05/12/20 Office Visit Andrew Dawson MD [facility] 04/17/20 Office Visit S[facility] [place] APN, CNP [facility] 04/15/20 Office Visit S[facility] [place] APN, CNP [facility] 03/12/20 Office Visit Andrew Dawson MD [facility] 01/08/20 Telemedicine Andrew Dawson MD [facility] 12/31/19 Telemedicine [facility] MD [facility] 10/09/19 Office Visit Sera [place] APN, OWNER OPERATOR TANKER TRUCK DRIVER [facility] 09/02/19 Office Visit Andrew Dawson MD [facility] 08/26/19 Office Visit Sánchez Jenkins APN, OWNER OPERATOR TANKER TRUCK DRIVER [facility] Showing recent visits within past 460 days with a meds authorizing provider and meeting all other requirements Future Appointments No visits were found meeting these conditions. Showing future appointments within next 90 days with a meds authorizing provider and meeting all other requirements FLATWORK FINISHER * Telephone Encounter - Ruth Almodovar RN - 10/19/2020 2:44 PM CST Patient calling in regarding refill request for xanax Notified that refill request was received today from the pharmacy and is waiting for providers response To provider for direction FLATWORK FINISHER documented in this encounter Plan of Treatment Not on file documented as of this encounter Visit Diagnoses Diagnosis Anxiety Anxiety state, unspecified documented in this encounter Additional Health Concerns Infection Onset Date Last Indicated Resolved Time COVID - 19 08/02/2021 08/02/2021 08/22/2021 12:1 6 AM HAND FLATWORK FINISHER COVID - 19 11/03/2021 11/03/2021 11/23/2021 12:1 6 AM HAND FLATWORK FINISHER Assessment Noted Time PHQ-9 Depression Total Score: 0 08/28/20 20 11:08 AM HAND FLATWORK FINISHER documented as of this encounter Care Teams Bonbon Dipper Relationship Specialty Start Date End Date Andrew Dawson MD #[address] [address] PCP - General Family Medicine 11/08/16 01/29/21 Vinicio Dinero MD [address] [place] [address] PCP - General Internal Medicine 01/30/21 07/26/21 Marisa Carcamo [facility] [address] [place] [address] PCP - General Physician Fire Technician 07/27/21 12/25/24 Marisa Carcamo, PAC [address] [place] [address] Physician Fire Technician Physician Fire Technician 01/30/21 documented as of this encounter
--- OUTSIDE RECORDS SUMMARY | 2024-12-29 21:36 | XMS_ITS | Encounter Summary ---
Author Organization [facility] Address [address] [place] [address] Phone Care Team Providers Care Aircraft Refueller Name Role Phone Andrew Dawson MD Primary Care Provider Vinicio Dinero MD Primary Care Provider [phone] Marisa Carcamo PAC Unavailable Marisa Carcamo PAC Primary Care Pro vider Reason for Visit * Reason Comments Medication Refill Encounter Details Date Type Department Care Team (Late st Contact Info) Description 07/29/2020 Refill [facility] - Family Medicine [facility] #2 [place] [address] Andrew Dawson MD #[address] [address] Medication Refill Social History Tobacco Use Types [...] AM CST Prescription approved. Please call in G SAW OPERATOR * Telephone Encounter - Kari Rose [...] 2 months ago Chronic atrial fibrillation (HCC) [facility] - Andrew Lopez MD 3 months ago Chronic atrial fibrillation (HCC) [facility] - Sera [facility] APN, CNP 3 months ago Tachycardia [facility] APN, CHARCOAL KILN BURNER 4 months ago Chronic bilateral low back pain without sciatica [facility] - Andrew Lopez MD 6 months ago Liver lesion [facility] - Andrew Lopez MD Upcoming Appointments Future Appointments In [address] MRI, [facility] TUBE CARRIER - Recent and Past Visits Recent Visits Date Type Provider Dept 05/12/20 Office Visit Andrew Dawson MD [facility] 04/17/20 Office Visit Sera [place] APN, CNP [facility] 04/15/20 Office Visit Sera [place] APN, CNP [facility] 03/12/20 Office Visit Andrew Dawson MD [facility] 01/08/20 Telemedicine Andrew Dawson MD [facility] 12/31/19 Telemedicine Andrew Dawson MD [facility] 10/09/19 Office Visit S[facility] [place] APN, CHARCOAL KILN BURNER [facility] 09/02/19 Office Visit Andrew Dawson MD [facility] 08/26/19 Office Visit Sánchez Jenkins APN, CHARCOAL KILN BURNER [facility] Office Visit Andrew Dawson MD [facility] Showing recent visits within past 460 days with a meds authorizing provider and meeting all other requirements Future Appointments No visits were found meeting these conditions. Showing future appointments within next 90 days with a meds authorizing provider and meeting all other requirements G SAW OPERATOR documented in this encounter Plan of Treatment Not on file documented as of this encounter Visit Diagnoses Not on filedocumented in this encounter Additional Health Concerns Infection Onset Date Last Indicated Resolved Time COVID - 19 08/02/2021 08/02/2021 08/22/2021 12:1 6 AM SWING SAW OPERATOR COVID - 19 11/03/2021 11/03/2021 11/23/2021 12:1 6 AM SWING SAW OPERATOR Assessment Noted Time PHQ-9 Depression Total Score: 0 03/12/20 12:31 PM CDT documented as of this encounter Care Teams Aircraft Refueller Relationship Specialty Start Date End Date Andrew Dawson MD #[address] [address] PCP - General Family Medicine 11/08/16 01/29/21 Vinicio Dinero MD [address] [place] [address] PCP - General Internal Medicine 01/30/21 07/26/21 Marisa Carcamo PAC [address] [place] [address] PCP - General Physician Dance Choreographer 07/27/21 12/25/24 Marisa Carcamo, [facility] [address] [place] [address] Physician Dance Choreographer Physician Dance Choreographer 01/30/21 documented as of this encounter
--- OUTSIDE RECORDS SUMMARY | 2024-12-29 21:36 | XMS_ITS | Encounter Summary ---
Author Organization [facility] Address [address] [place] [address] Phone Care Team Providers Care Shrimp Trawler Name Role Phone Andrew Dawson MD Primary Care Provider [phone] Vinicio Dinero MD Primary Care Provider [phone] Marisa Carcamo PAC Unavailable Marisa Carcamo PAC Primary Care Pro vider Reason for Visit * Reason Comments Medication Refill Encounter Details Date Type Department Care Team (Late st Contact Info) Description 09/16/2020 Refill [facility] #2 [place] [address] Andrew Dawson MD #[address] [address] Medication Refill Social History Tobacco Use Types [...] COVID-19? No / Unsure 08/28/2020 10:46 AM SQL DBA documented as of this encounter Miscellaneous Notes [...] Receipt confirmed by pharmacy (09/10/2020 ??8:42 AM SQL DBA) ALPRAZolam (XANAX) 0.5 MG Tablet [[id number]] 0842 duplicate DBA documented in this encounter Plan of Treatment Not on file documented as of this encounter Visit Diagnoses Diagnosis Anxiety Anxiety state, unspecified documented in this encounter Additional Health Concerns Infection Onset Date Last Indicated Resolved Time COVID - 19 08/02/2021 08/02/2021 08/22/2021 12:1 6 AM SQL DBA COVID - 19 11/03/2021 11/03/2021 11/23/2021 12:1 6 AM SQL DBA Assessment Noted Time PHQ-9 Depression Total Score: 0 08/28/20 11:08 AM SQL DBA documented as of this encounter Care Teams Shrimp Trawler Relationship Specialty Start Date End Date Andrew Dawson MD #[address] [address] PCP - General Family Medicine 11/08/16 01/29/21 Vinicio Dinero MD [address] [place] [address] PCP - General Internal Medicine 01/30/21 07/26/21 Marisa Carcamo, PAC [address] [place] [address] PCP - General Physician Chief Fundraising Officer 07/27/21 12/25/24 Marisa Carcamo, PAC [address] [place] [address] Physician Chief Fundraising Officer Physician Chief Fundraising Officer 01/30/21 documented as of this encounter
--- OUTSIDE RECORDS SUMMARY | 2024-12-29 21:37 | XMS_ITS | Encounter Summary ---
Author Organization [facility] Address [address] [place] [address] Care Team Providers Care Food Service Lead Name Role Phone Andrew Dawson MD Primary Care Provider [phone] MD Unavailable [phone] Maddi Cantrell DO Primary Care Provider [phone] MD Unavailable [phone] Andrew Dawson MD Primary Care Provider [phone] Vinicio Dinero MD Primary Care Provider [phone] Encounter Details Date Type Department Care Team (Late st Contact Info) Description 08/13/2018 Telephone [facility] General Internal Medicine [address] [facility] [address] [place] [address] Andrew Dawson MD [address] [place] [address] [address] [place] [address] Social History Tobacco Use Types [...] documented as of this encounter Care Teams Food Service Lead Relationship Specialty Start Date End Date Andrew Dawson MD PCP - General 04/23/18 08/27/18 Maddi Cantrell DO PCP - General Internal Medicine 08/28/18 09/10/18 Andrew Dawson MD PCP - General 09/11/18 12/27/21 Vinicio Dinero MD [address] [place] [address] PCP - General 12/28/[address] MD Resident - PCP Student Resident 08/27/[address] MD Student Resident 08/28/18 documented as of this encounter
--- OUTSIDE RECORDS SUMMARY | 2024-12-29 21:37 | XMS_ITS | Encounter Summary ---
Author Organization [facility] Address [address] [place] [address] Phone Care Team Providers Care Poultry Farmer Egg Name Role Phone Andrew Dawson MD Primary Care Provider Vinicio Dinero MD Primary Care Provider [phone] Marisa Carcamo PAC Unavailable Marisa Carcamo PAC Primary Care Pro vider Reason for Visit * Reason Comments Medication Refill Encounter Details Date Type Department Care Team (Late st Contact Info) Description 03/17/2020 Refill [facility] - [facility] [address] [place] [address] Andrew Dawson MD [address] [address] Medication Refill Social History Tobacco Use Types [...] PHYSICIAN GROUP FAMILY MEDICINE Sera Spring APN, BOND RUNNER 6 months ago Chronic bilateral low back pain without sciatica [facility] Andrew Dawson MD Upcoming Appointments Future Appointments In 6 days Kaylynn Lockhart, MASTER CONTROL ENGINEER [facility] In 1 week Kaylynn Lockhart, MASTER CONTROL ENGINEER [facility] In 2 weeks Sarah Hilton, PT [facility] Powered by [employer] - 03/17/2020 12:45 PM The requested medication is not on the active medication list. documented in this encounter Plan of Treatment Not on file documented as of this encounter Visit Diagnoses Not on filedocumented in this encounter Additional Health Concerns Infection Onset Date Last Indicated Resolved Time COVID - 19 08/02/2021 08/02/2021 08/22/2021 12:1 6 AM PHP PROGRAMMER COVID - 19 11/03/2021 11/03/2021 11/23/2021 12:1 6 AM PHP PROGRAMMER Assessment Noted Time PHQ-9 Depression Total Score: 0 03/12/20 20 12:31 PM CDT documented as of this encounter Care Teams Poultry Farmer Egg Relationship Specialty Start Date End Date Andrew Dawson MD [address] [address] PCP - General Family Medicine 11/08/16 01/29/21 Vinicio Dinero MD [address] [place] [address] PCP - General Internal Medicine 01/30/21 07/26/21 Marisa Carcamo, PAC [address] [place] [address] PCP - General Physician Crabbing Machine Operator 07/27/21 12/25/24 Marisa Carcamo, PAC [address] [place] [address] Physician Crabbing Machine Operator Physician Crabbing Machine Operator 01/30/21 documented as of this encounter
--- OUTSIDE RECORDS SUMMARY | 2024-12-29 21:37 | XMS_ITS | Encounter Summary ---
Author Organization [facility] Facility Care Team Providers Care Sales And Leasing Consultant Name Role Phone Andrew Dawson MD Primary Care Provider [phone] Andrew Dawson MD Primary Care Provider [phone] Vinicio Dinero MD Primary Care Provider [phone]- [phone] Mushtaq Blake MD Unavailable [phone] Miguel Ángel Sanchez MD Unavailable [phone] Monae Velasquez MD Primary Care Provider Emelyn Curtis MD Unavailable [phone] Heena Stephenson MD Unavailable [phone] Jeffery Bro MD Unavailable [phone] Anali Flores MD Unavailable [phone] Alessandro Dominguez NP Unavailable [phone] Luciano Rodriguez MD Unavailable Encounter Details Date Type Department Care Team (Latest Contact Info) Description 07/02/2016 Orders Only [facility] Provider, MD Sourav [address] [place] [address] Social History Tobacco Use Types Packs/Day Years Used Date Smoking Tobacco: Never Assessed Sex and Gender Information Value Date Recorded Sex Assigned at Not on file Legal Sex Male 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 Gender Identity Not on file Sexual Orientation [...] documented as of this encounter Care Teams Sales And Leasing Consultant Relationship Specialty Start Date End Date Andrew Dawson MD PCP - General Cardiology 12/10/18 10/23/19 Andrew Dawson MD [address] [address] PCP - General Family Medicine 10/24/19 10/19/21 Vinicio Dinero MD [address] [place] [address] PCP - General Internal Medicine 10/20/21 12/13/22 Monae Velasquez MD [address] [place] [address] PCP - General Family Practice 12/14/22 Mushtaq Blake MD [address] [place] [address] Medical Oncologist/Hematologi st Hematology and Oncology 09/09/22 Miguel Ángel Sanchez MD [address] [place] [address] Consulting Physician Radiation Oncology 12/09/22 Emelyn Curtis MD [address] DIV IM MEDICAL ONCOLOGY, [address], 7B, [address] [place] [address] Consulting Physician Medical Oncology 04/17/23 Heena Stephenson MD [address] [place] [address] Fellow General Surgery 04/17/23 Jeffery Bro MD [address] [facility] [address] [place] [id number] Referring Physician Gastroenterology 05/16/23 Anali Flores MD [address] [facility] [address] [place] [address] Consulting Physician Cardiology 05/22/23 Alessandro Dominguez SIMULATION TECHNICIAN [address] [place] [address] Nurse Practitioner Pain Management 05/22/23 [place] [address] [place] [address] Consulting Physician Interventional Radiology 03/14/24 documented as of this encounter
--- OUTSIDE RECORDS SUMMARY | 2024-12-29 21:37 | XMS_ITS | Encounter Summary ---
Author Organization [facility] Address [address] [place] [address] Phone Care Team Providers Care Living Advisor Name Role Phone Andrew Dawson MD Primary Care Provider [phone] Vinicio Dinero MD Primary Care Provider [phone] Marisa Carcamo PAC Unavailable Marisa Carcamo PAC Primary Care Pro vider Reason for Visit * Reason Comments Medication Refill Encounter Details Date Type Department Care Team (Late st Contact Info) Description 02/28/2020 Refill [facility] [address] [place] [address] Andrew Dawson MD [address] [address] Medication Refill Social History Tobacco Use Types [...] Outpatient Visits 1 month ago Liver lesion [facility] PHYSICIAN [facility] FAM[facility]IC[facility] Andrew Dawson MD 1 month ago Muscular chest pain [facility] PHYSICIAN [facility] Andrew Dawson MD 4 months ago Chronic diastolic CHF (congestive heart failure) (HCC) [facility] PHYSICIAN [facility] FAMILY MEDIC[facility] Sera [place] APN, CNP 5 months ago Chronic bilateral low back pain without sciatica [facility]YSIC[facility] FAM[facility] MEDICINE Andrew Dawson MD 6 months ago Chronic bilateral low back pain without sciatica [facility] PHYSICIAN [facility] FAMILY MEDICINE Sánchez Jenkins APN, JOY Upcoming Appointments Future Appointments In 1 month Althea Barton APN, JOY [facility], [facility] documented in this encounter Plan of Treatment Not on file documented as of this encounter Visit Diagnoses Not on filedocumented in this encounter Additional Health Concerns Infection Onset Date Last Indicated Resolved Time COVID - 19 08/02/2021 08/02/2021 08/22/2021 12:1 6 AM OIL EXPELLER OPERATOR COVID - 19 11/03/2021 11/03/2021 11/23/2021 12:1 6 AM OIL EXPELLER OPERATOR Assessment Noted Time PHQ-9 Depression Total Score: 0 10/09/19 20 8:42 AM OIL EXPELLER OPERATOR documented as of this encounter Care Teams Living Advisor Relationship Specialty Start Date End Date Andrew Dawson MD [address] [address] PCP - General Family Medicine 11/08/16 01/29/21 Vinicio Dinero MD [address] [place] [address] PCP - General Internal Medicine 01/30/21 07/26/21 Marisa Carcamo, PAC [address] [place] [address] PCP - General Physician Warehouse Guard 07/27/21 12/25/24 Marisa Carcamo, PAC [address] [place] [address] Physician Warehouse Guard Physician Warehouse Guard 01/30/21 documented as of this encounter
--- OUTSIDE RECORDS SUMMARY | 2024-12-29 21:37 | XMS_ITS | Clinical Summary ---
Author Organization [facility] [place] [address] Address [address] [place] [address] Care Team Providers Care Assembly Loader Name Role Phone Mushtaq Blake MD Unavailable [phone] Miguel Ángel Sanchez MD Unavailable Mnoae Velasquez MD Primary Care Provider Emelyn Curtis MD Unavailable [phone] Heena Stephenson MD Unavailable [phone] Jeffery Bro MD Unavailable [phone] Anali Flores MD Unavailable Alessandro Dominguez NP Unavailable [phone] Luciano Rodriguez MD Unavailable Allergies Active [...] 15 mg tabletIndications: Other persistent atrial fibrillation (HCC),long term care social worker (current) use of anticoagulants TAKE 1 TABLET BY MOUTH DAILY WITH DINNER. 90 tablet 3 08/02/20 23 Active aspirin 81 mg enteric coated tabletIndications: S/P TAVR (transcatheter aortic valve replacement) Take 1 tablet (81 mg total) by mouth daily 30 tablet 11 09/19/20 23 Active budesonide-glycopy r-formoterol (BREZTRI) 160-9-4.8 mcg/actuation inhalerIndications :Panlobular emphysema (HCC),Chronic respiratory failure with hypoxia, on home oxygen therapy ([facility]) Inhale 2 puffs 2 (two) times a [...] electrophysiology Assessment & Plan (08/10/2023 5:04 PM SIDER): Patient has a degree of persistent bradycardia [...] mirtazapine Assessment & Plan (08/10/2023 5:04 PM SIDER): Chronic. Continue the buspirone and mirtazapine. They [...] specialist Assessment & Plan (08/10/2023 5:03 PM SIDER): Chronic. Per recent notes from Oncology and [...] constipation Assessment & Plan (08/10/2023 5:03 PM SIDER): Chronic back pain syndrome. Saw pain management [...] management Assessment & Plan (08/10/2023 5:02 PM SIDER): Chronic. Struggles with chronic pain. Was previously [...] management Assessment & Plan (08/10/2023 5:02 PM SIDER): Status post prior transaortic valve replacement. Care per Cardiology Chronic diastolic CHF (congestive heart failure) 01/21/2021 Assessment & Plan (03/18/2024 5:22 PM CDT): Chronic. Compensated. Continue current medication. Monitor Assessment & Plan (12/11/2023 5:55 PM CDT): Chronic. Compensated. Continue current prescription medication Assessment & Plan (08/10/2023 5:02 PM SIDER): Chronic. Compensated. Continue medication and care per Cardiology Persistent atrial fibrillation 01/20/2021 Assessment & Plan (03/18/2024 5:22 PM CDT): Chronic. Controlled. Continue beta-carlene and anticoagulation. Monitor Assessment & Plan (12/11/2023 5:55 PM CDT): Chronic. Stable. Continue current prescription medication. Continue anticoagulation for stroke prevention Assessment & Plan (08/10/2023 5:01 PM SIDER): Chronic. Follows with cardiology. Has plans for upcoming cardiac ablation and placement of pacemaker. Continue medication and care per Cardiology Chronic anticoagulation 02/19/2020 Assessment & Plan (03/18/2024 5:21 PM CDT): Chronic. Bleeding precautions recommended. Assessment & Plan (12/11/2023 5:54 PM CDT): Chronic no signs of spontaneous bleeding. Continue anticoagulation for stroke prevention. Bleeding precautions recommended Assessment & Plan (08/10/2023 5:01 PM SIDER): Chronic due to AFib. Discussed bleeding precautions. [...] counseling Assessment & Plan (08/10/2023 5:01 PM SIDER): Chronic. Counseled to quit. Reviewed health risks Chronic bilateral low back pain without sciatica 01/18/2017 Assessment & Plan (08/10/2023 5:04 PM SIDER): Chronic. Needs to follow up with pain management Panlobular emphysema 11/09/2016 Assessment & Plan (03/18/2024 5:24 PM CDT): Chronic. Breathing is stable. Continue breztri Assessment & Plan (12/11/2023 5:56 PM CDT): Chronic. Uncontrolled. Needs improvement. Noncompliant with inhalers. Restart BReztri. Stressed importance of smoking cessation. No signs of acute exacerbation Assessment & Plan (08/10/2023 5:00 PM SIDER): Chronic. Uncontrolled. Noncompliant with inhalers. Stressed importance of taking breast true regularly. Previously did not like any of the powdered inhalers. Still smoking. Patient will be referred to alternative granite installer for management as he does not want to go to his previous 1 at [facility] Dyslipidemia 09/30/2016 Assessment & Plan (03/18/2024 5:23 PM CDT): Chronic. Tolerates atorvastatin. Continue. 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 They defer for today Assessment & Plan (12/11/2023 5:58 PM CDT): Chronic. Stable. Continue atorvastatin Assessment & Plan (08/10/2023 5:05 PM SIDER): Chronic. Encouraged to continue his atorvastatin for [...] decompensation Assessment & Plan (08/10/2023 5:04 PM SIDER): Patient has a chronic degree of mild [...] nightly Assessment & Plan (08/10/2023 5:01 PM SIDER): Chronic, intermittent hypoxemia. Has supplemental oxygen at night. Has been followed by pulmonology but wishes to switch to closer granite installer Leg edema 10/31/2022 11/16/2022 Discomfort of left [...] - 09/24/2018 Unsure if completed. Records from [place] show skin rash, renal biopsy with IgA [...] C) BPH (benign prostatic hyperplasia) Depression Anxiety [place] (hard of hearing) Cataract bilateral Cervical spinal [...] drink = 0.6 oz pur e alcohol) [facility] Utilities Answer Date Recorded In the past 12 months has e electric, gas, oil, or water [employer] threatened to shut off services in your [...] often do you attend chur ch or temple services? Never 08/31/2023 Do you belong to any clubs o r organizations such as mu-ism groups, unions, fraternal or athletic groups, or [...] place to sleep or slept in a fpc (including now)? No 08/31/2023 Personal Safety Answer Date Recorded Have you ever been in or are you currently in a harmful physical or emotional relationship or is someone making you feel afraid or unsafe? Denies 03/14/2024 Sex and Gender Information Value Date Recorded Sex Assigned at Not on file Legal Sex Male 2:00 AM SIDER Gender Identity Not on file Sexual Orientation [...] history exists Medical Devices Implanted Type Area Grocery Department Manager Device Identifier Shelf Expiration Date Model / Serial / Lot St [employer] Tendril Sts 6fr 58cm Is-1 Connector Active Fixation Bipolar Soft 2087tc/58 - [id number] - [id number] Implanted:Qty: 1 on 08/11/2023 by Leon Rock MD at [facility] Lead Right: Ventricle [employer] Inc 05/25/2026 2088TC/ 58 / [id number] / [employer] Tendril Sts 6fr 52cm Is-1 Connector Active Fixation Bipolar Soft 2087tc/52 - [id number] Implanted:Qty: 1 on 08/11/2023 by Leon Rock MD at [facility] Lead Right: Atrial Appendage [employer] Inc 05/25/2026 2088TC/ 52 / / [employer] Quartet 4.7fr 86cm Quadripolar Is-4 Llll Connector 8 Curve Low 1456q/86 - [id number] - [id number] Implanted:Qty: 1 on 08/11/2023 by Leon Rock MD at [facility] Lead Right: Atrial Appendage [employer] 04/24/2026 1456Q/8 6 / [id number] / Haynes V[employer] Pacemaker Dual Chamber Draft Roller Picker P Mri Compatible Quadra Allure Mp [id number] - [id number] - [id number] Implanted:Qty: 1 on 08/11/2023 by Leon Rock MD at [facility] Pacemaker Left: Infraclavicular Anterior Chest Wall [employer]nes [employer] [id number] / [id number] / Terumo Medical Andreas Angio-Seal Vip 6fr Closere Device [id number] - [id number] Implanted:Qty: 1 on 06/08/2022 by Demetris Kay MD at [facility] [employer] Andreas 12/23/2022 [id number] / / [id number] Brown Lifesciences Brooke 3 Commander Brown 26mm Transcatheter Ultra Low Profile D3syc938l - [id number] - [id number] Implanted:Qty: 1 on 10/18/2022 by Demetris Kay MD at [facility] [employer] 05/26/2025 [id number] / [id number] / Description:Heart valve 3T o r less [employer] Device Clsr Perclose Prostyle Sut-Mediatd Closure-Repair Sys 66560-23 - [id number] Implanted:Qty: 1 on 10/18/2022 by Demetris Kay MD at [facility] [employer] 07/25/2024 35564-1 Haynes [employer] Device Clsr Perclose Prostyle Sut-Mediatd Closure-Repair Sys 60409-00 - [id number] Implanted:Qty: 1 on 10/18/2022 by Demetris Kay MD at [facility] [employer] 07/25/2024 92568-1 [employer] [facility] Angio-Seal Vip 6fr Closere Device [id number] - [id number] Implanted:Qty: 1 on 10/18/2022 [facility] 06/24/2023 [id number] / / [id number] Medtronic Inc Coil Embolization Coated Detachable Helical Concerto 5boo2ui Nylon Tp-5-1-Ogden - [id number] Implanted:Qty: 1 on 12/07/2022 at [facility] Medtronic Inc NV-3-4- HELIX / / Medtronic Inc Coil Embolization Coated Detachable Helical Concerto 3zeb81qy Nylon Dp-5-61-Ogden - [id number] Implanted:Qty: 1 on 12/07/2022 at [facility] Medtronic Inc NV-5-20 -HELIX / / Haynes V[employer] Device Clsr Perclose Prostyle Sut-Mediatd Closure-Repair Sys 03877-81 - [id number] Implanted:Qty: 1 on 12/07/2022 at [facility] [employer] [id number] 09/24/2024 80540-0 3 [id number] [employer] Andreas Coil Emolization Coated Detachable Embold 1wwf17zl Otoe-[place] Tungsten [id number] 20 - [id number] Implanted:Qty: 1 on 12/07/2022 at [facility] [employer] [id number] 08/23/2025 [id number] 20 / / [id number] [employer] Andreas Coil Emolization Coated Detachable [place]to[place] Tungsten Embold 2eft4rs [id number] 40 - [id number] Implanted:Qty: 1 on 12/07/2022 at [facility] [employer] [id number] 40 / / [employer] Andreas Coil Emolization Coated Detachable Embold 8bts7du [place] Tungsten [id number] 80 - [id number] Implanted:Qty: 1 on 12/07/2022 at [facility] [employer] [id number] 07/31/2025 [id number] 80 / / [id number] Ir Marker .5mm X 1cm Preld 21ga 15cm Long Ndl Visicoil - [id number] Implanted:Qty: 1 on 01/10/2023 at [facility] Radio Med Andreas 11/22/2025 SN-050- 010-PL1 [id number] Ir Marker .5mm X 1cm Preld 21ga 15cm Long Ndl Visicoil - [id number] Implanted:Qty: 1 on 01/10/2023 at [facility] [employer] Andreas 04/24/2025 SN-050- 010-PL1 [id number] Ir Marker .5mm X 1cm Preld 21ga 15cm Long Ndl Visicoil - [id number] Implanted:Qty: 1 on 01/10/2023 at [facility] [employer] Andreas 11/22/2025 SN-050- 010-PL1 [id number] Ir Marker .5mm X 1cm Preld 21ga 15cm Long Ndl Visicoil - [id number] Implanted:Qty: 1 on 01/10/2023 at [facility] [employer] Andreas 11/22/2025 SN-050- 010-PL1 [id number] Ernie'stronic Inc Tyrx Absorbable Antibacterial Envelope-Large 3.3x2.9in [id number] - [id number] Implanted:Qty: 1 on 09/01/[facility] 05/18/2024 [id number] / / [id number] Terumo Medical Andreas Angio-Seal Vip 6fr Closere Device [id number] - [id number] Implanted:Qty: 1 on 01/09/2024 at [facility] TerAndela Medical Andreas 08/02/2024 [id number] / / [id number] [employer] Andreas Coil Emolization Coated Detachable Embold 0fbv14ym Oto[place] Tungsten [id number] 50 - [id number] Implanted:Qty: 1 on 01/09/2024 at [facility] [employer] Andreas [id number] 08/15/2026 [id number] 50 / / [id number] [employer] Andreas Coil Emolization Coated Detachable Embold 7srb86lm O[employer]e-[place] Tungsten [id number] 00 - [id number] Implanted:Qty: 1 on 01/09/2024 at [facility] [employer] [id number] 09/07/2026 [id number] 00 / / [id number] [employer] Andreas Coil Emolization Coated Detachable O[place] Tungsten Embold 5abj3jg [id number] 40 - [id number] Implanted:Qty: 1 on 01/09/2024 at [facility] [employer] [id number] 07/25/2026 [id number] [id number] 40 / / [id number] Terumo Medical Andreas Angio-Seal Vip 6fr Closere Device [id number] - [id number] Implanted:Qty: 1 on 03/14/2024 at [facility] [employer] 08/28/2024 [id number] / / [id number] Explanted Type Area Grocery Department Manager Device Identifier Shelf Expiration Date Model / Serial / Lot Eastman Medical [facility] Guy Flexi-Stent 7fr 9cm Small Pigtail Flexible .035in Stent 6575 - [id number] Implanted:Qty: 1 on 03/15/2023 by Rusty Pendleton MD at [facility] Explanted:Qty: 1 on 03/17/2023 by Ronald Cortez MD at [facility] Stent N/A: Pancreas ReserveOut Inc [id number] 09/25/2021 6575 / / [id number] [employer] Andreas Wallflex 10mm X 60mm Fully Covered Biliary [id number] - [id number] Implanted:Qty: 1 on 03/15/2023 by Rusty Pendleton MD at [facility] Explanted:Qty: 1 on 03/17/2023 by Ronald Cortez MD at [facility] Stent N/A: Bile Duct [employer] Andreas [id number] 12/05/2024 [id number] / / [id number] Procedures Procedure Name Priority Date/Time Associated Diagnosis [...] abdomen or pelvis abnormality. Stat report by [facility] Electronically signed by: Misbah Li [...] abdomen or pelvis abnormality. Stat report by [facility] Electronically signed by: Misbah Li M.D. Iqra Hedrick MD IM CT PROCEDURES Gladys l Result * (ABNORMAL) Hepatitis C (HCV) RNA PCR, quantitative (05/13/2016 9:11 AM CDT) HBsAb log IU/mL 2.0 () log IU 6 7:33 AM [facility] HISTORICAL RESULTS Comment: INTERPRETIVE INFORMATION: Hepatitis [...] IU/mL 110 () IU/mL 05/18/2016 7:33 AM [facility] HCV RNA result Detected( H) Not Detected 05/18/2016 7:33 AM [facility] [employer] [facility] HISTORICAL RESULTS HCV RNA See Note () 05/18/2016 7:33 AM [facility] [employer] [facility] HISTORICAL RESULTS Comment: Access Sixteen [employer] Enhanced Report using either link below: -Direct access: [email or web address] -Enter Username, Password: [email or web address] Username: [email or web address] Password: [email or web address] Performed by [facility], [address] [place] [address] [email or web address] [facility], Chico Quevedo MD, Lab. Director 05/13/2016 9:11 AM CDT 05/13/2016 9:22 AM CDT us Janis Vasquez NP LAB MICROBIOLOGY - GENERAL ORDERABLES Final Result [facility] HISTORICAL RESULTS * Occult blood, fecal non neoplasm screening (05/01/2016 10:10 AM CDT) Stool Occult Blood NEGATIVE NEGATIVE 05/01/2016 10:1 0 AM CDT 05/01/2016 11:57 AM CDT Narrative [facility] HISTORICAL RESULTS - 05/01/2016 12:14 PM CDT Collected By JS us Anthony Zamudio MD LAB BODY FLUIDS AND ST OOLS ORDERABLES Final Result [facility] HISTORICAL RESULTS from Last 3 Months or Most Recently Relevant to Health Maintenance Insurance [id number] [place] [address] MEDICARE ADVANTAGE [facility] Address: [id number] [place] [address] [facility] Address: [address] [address] [place] [address] [employer] [facility] MEDICARE ADVANTAGE Advance Directives For more information, please contact: [phone] * Full Code (Latest Code Status on [...] 11:04 AM 08/12/2023 2:30 PM Care Teams Assembly Loader Relationship Specialty Start Date End Date Monae Velasquez MD [address] [place] [address] PCP - General Family Practice 12/14/22 Mushtaq Blake MD Medical Oncologist/Hematologi st Hematology and Oncology 09/09/22 Miguel Ángel Sanchez MD [address] [place] [address] Consulting Physician Radiation Oncology 12/09/22 Emelyn Curtis MD [address] DIV IM MEDICAL ONCOLOGY, [address], [address], [address] [place] [address] Consulting Physician Medical Oncology 04/17/23 Heena Stephenson MD [address] [place] [address] Fellow General Surgery 04/17/23 Jeffery Bro MD [address] [place] [id number] Referring Physician Gastroenterology 05/16/23 Anali Flores MD [address] [address] Consulting Physician Cardiology 05/22/23 [place] [address] [place] [address] Nurse Practitioner Pain Management 05/22/23 [place] [address] [place] [address] Consulting Physician Interventional Radiology 03/14/24
--- OUTSIDE RECORDS SUMMARY | 2024-12-29 21:37 | XMS_ITS | Encounter Summary ---
Author Organization [facility] Address [address] [place] [address] Phone Care Team Providers Care Senior Graphic Designer Name Role Phone Marisa Carcamo PAC Primary Care Pro vider Reason for Visit * Reason Comments Medication Refill Encounter Details Date Type Department Care Team (Late st Contact Info) Description 07/01/2023 Refill [facility] - Family [facility] [address] [place] [address] Marisa Carcamo, PAC [address] [facility] [place] [address] Medication Refill Social History Tobacco [...] Depression Total Score: 11 021 3:00 PM DURABLE MEDICAL EQUIPMENT TECHNICIAN documented as of this encounter Care Teams Senior Graphic Designer Relationship Specialty Start Date End Date Marisa Carcamo PAC [address] [place] [address] PCP - General Physician Deburrer Strip 07/27/21 12/25/24 documented as of this encounter
--- OUTSIDE RECORDS SUMMARY | 2024-12-29 21:37 | XMS_ITS | Encounter Summary ---
Author Organization [facility] Address [address] [place] [address] Phone Care Team Providers Care Synchronous Motor Assembler Name Role Phone Marisa Carcamo PAC Primary Care Pro vider Reason for Visit * Reason Comments Medication Refill Encounter Details Date Type Department Care Team (Late st Contact Info) Description 02/11/2023 Refill [facility] - Internal Medicine - [place] [address] [place] [address] Marisa Carcamo, [facility] [address] [place] [address] Medication Refill Social History Tobacco [...] Depression Total Score: 11 021 3:00 PM ASSEMBLER 1ST SHIFT documented as of this encounter Care Teams Synchronous Motor Assembler Relationship Specialty Start Date End Date Marisa Carcamo PAC [address] [place] [address] PCP - General Physician Beater Room Helper 07/27/21 12/25/24 documented as of this encounter
--- OUTSIDE RECORDS SUMMARY | 2024-12-29 21:37 | XMS_ITS | Encounter Summary ---
Author Organization [facility] Address [address] [place] [address] Phone Care Team Providers Care Public Health Teacher Name Role Phone Marisa Carcamo PAC Primary Care Pro vider Reason for Visit * Reason Comments Medication Refill Encounter Details Date Type Department Care Team (Late st Contact Info) Description 02/14/2023 Refill [facility] - Internal Medicine - [place] [address] [place] [address] Marisa Carcamo, [facility] [address] [place] [address] Medication Refill Social History [...] Total Score: 11 08/02/2 021 3:00 PM ADJUSTER LEADER documented as of this encounter Care Teams Public Health Teacher Relationship Specialty Start Date End Date Marisa Carcamo, [facility] [address] [place] [address] PCP - General Physician Converting Technician 07/27/21 12/25/24 documented as of this encounter
--- OUTSIDE RECORDS SUMMARY | 2024-12-29 21:37 | XMS_ITS | Encounter Summary ---
Author Organization [facility] Address [address] [facility] [address] [place] [address] Care Team Providers Care Newspaper Delivery Counselor Name Role Phone Andrew Dawson MD Primary Care Provider [phone] Andrew Dawson MD Primary Care Provider [phone] Vinicio Dinero MD Primary Care Provider + [phone] Mushtaq Blake MD Unavailable [phone] Miguel Ángel Sanchez MD Unavailable [phone] Monae Velasquez MD Primary Care Provider Emelyn Curtis MD Unavailable [phone] Heena Stephenson MD Unavailable [phone] Jeffery Bro MD Unavailable [phone] Anali Flores MD Unavailable [phone] Alessandro Dominguez NP Unavailable [phone] Luciano Rodriguez MD Unavailable Encounter Details Date Type Department Care Team (Late st Contact Info) Description 12/27/2016 Orders Only [facility] Provider, MD Sourav [address] [place] [address] Social History Tobacco Use Types Packs/Day Years Used Date Smoking Tobacco: Never Assessed Sex and Gender Information Value Date Recorded Sex Assigned at Not on file Legal Sex Male 2:00 AM MARKETING ACCOUNT EXECUTIVE Gender Identity Not on file Sexual Orientation [...] documented as of this encounter Care Teams Newspaper Delivery Counselor Relationship Specialty Start Date End Date Andrew Dawson MD PCP - General Cardiology 12/10/18 10/23/19 Andrew Dawson MD [address] [address] PCP - General Family Medicine 10/24/19 10/19/21 Vinicio Dinero MD [address] [place] [address] PCP - General Internal Medicine 10/20/21 12/13/22 Monae Velasquez MD [address] [place] [address] PCP - General Family Practice 12/14/22 Mushtaq Blake MD [address] [place] [address] Medical Oncologist/Hematologi st Hematology and Oncology 09/09/22 Miguel Ángel Sanchez MD [address] [place] [address] Consulting Physician Radiation Oncology 12/09/22 Emelyn Curtis MD [address] DIV IM MEDICAL ONCOLOGY, [address], [address] [place] [address] Consulting Physician Medical Oncology 04/17/23 Heena Stephenson MD [address] [place] [address] Fellow General Surgery 04/17/23 Jeffery Bro MD [address] [email or web address] [address] [place] [address] Referring Physician Gastroenterology 05/16/23 Anali Flores MD [address] [email or web address] [address] [place] [address] Consulting Physician Cardiology 05/22/23 [place] [address] [place] [address] Nurse Practitioner Pain Management 05/22/23 [place] [address] [place] [address] Consulting Physician Interventional Radiology 03/14/24 documented as of this encounter
--- OUTSIDE RECORDS SUMMARY | 2024-12-29 21:37 | XMS_ITS | Encounter Summary ---
Author Organization [facility] Address [address] [place] [address] Phone Care Team Providers Care Pipe Inspector Name Role Phone Marisa Carcamo PAC Primary Care Pro vider Reason for Visit * Reason Comments Medication Refill Encounter Details Date Type Department Care Team (Late st Contact Info) Description 11/07/2022 Refill [facility] - Internal Medicine - [place] [address] [place] [address] Marisa Carcamo, [facility] [address] [place] [address] Medication Refill Social History Tobacco [...] with Buspirone for at least 6 months F DRIER documented in this encounter Plan of Treatment Not on file documented as of this encounter Visit Diagnoses Diagnosis Anxiety Anxiety state, unspecified documented in this encounter Additional Health Concerns Assessment Noted Time PHQ-9 Depression Total Score: 11 021 3:00 PM SNUFF DRIER documented as of this encounter Care Teams Pipe Inspector Relationship Specialty Start Date End Date Marisa Carcamo PAC [address] [place] [address] PCP - General Physician Employee Training Specialist 07/27/21 12/25/24 documented as of this encounter
--- OUTSIDE RECORDS SUMMARY | 2024-12-29 21:37 | XMS_ITS | Encounter Summary ---
Author Organization [facility] Address [address] [place] [address] Care Team Providers Care Moulder Operator Name Role Phone Ravinder Street MD Unavailable [phone] Maddi Cantrell DO Primary Care Provider [phone] MD Unavailable [phone] Andrew Dawson MD Primary Care Provider [phone] Vinicio Dinero MD Primary Care Provider [phone] Reason for Visit * Reason Onset Date Comments General 08/28/2018 Encounter Details Date Type Department Care Team (Late st Contact Info) Description 08/28/2018 Telephone [facility] General Internal Medicine [address] 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
--- OUTSIDE RECORDS SUMMARY | 2024-12-29 21:37 | XMS_ITS | Encounter Summary ---
Author Organization [facility] Address [address] [place] [address] Care Team Providers Care Emr Analyst Name Role Phone Andrew Dawson MD Primary Care Provider [phone] MD Unavailable [phone] Maddi Cantrell DO Primary Care Provider [phone] MD Unavailable [phone] Andrew Dawson MD Primary Care Provider [phone] Vinicio Dinero MD Primary Care Provider [phone] Reason for Visit * Reason Onset Date Comments Appointment 08/13/2018 Encounter Details Date Type Department Care Team (Late st Contact Info) Description 08/13/2018 Telephone [facility] General Internal Medicine [address] [address] Maddi Cantrell DO [address] OF [facility] [place] [phone] Appointment Social History Tobacco Use Types Packs/Day [...] the patient for 2:30 pm. 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
--- OUTSIDE RECORDS SUMMARY | 2024-12-29 21:37 | XMS_ITS | Encounter Summary ---
Author Organization [facility] Address [address] [place] [address] Care Team Providers Care Tamale Maker Name Role Phone Andrew Dawson MD Primary Care Provider [phone] MD Unavailable [phone] Maddi Cantrell DO Primary Care Provider [phone] MD Unavailable [phone] Andrew Dawson MD Primary Care Provider [phone] Vinicio Dinero MD Primary Care Provider [phone] Reason for Visit * Reason Onset Date Comments MEDICATION REFILL 08/24/2018 Refill Request 08/27/2018 Encounter Details Date Type Department Care Team (Late st Contact Info) Description 08/24/2018 Refill [facility] General Internal Medicine [address] [facility] [address] [place] [address] Andrew Dawson MD [address] [place] [address] [address] [place] [address] MEDICATION REFILL; Refill Request Social History Tobacco [...] to see how patient responds as weaning. [place] PDMP reviewed and only opioid prescription from November found. However, [facility] pharmacy reportspatient was receiving up to 90 1 mg alprazolam tabs until December through them. No refills with them from December until June when received 30 tabs from [place]'s ED physician. Then received 20 tabs at hospital discharge. Need to discuss further with patient. Note in [facility] computer that notes no refills to be given early and that [place] PDMP needs to reviewed regularly (another name in PDMP?). Will have Dr. Street follow up with patient to obtain further history as unclear if receiving medication for several months and have concerns with nursing home use of 1 mg BID-TID. Would advocate need to see psychiatry to further assess and need records from previous PCP. Additionally spoke with Danisha in system who reports that patient has a prescription from February for alprazolam which was not ever filled and has not been filling meds with them regularly. ASSISTANT * Telephone Encounter - Denae Rausch - 08/28/2018 2:41 PM CST [facility] Pharmacy calling back in with two issues. 1) [facility] has been waiting 4+ days for clarification [...] forwarded to PCP and not resident per [facility] request d/t patient being upset about extended wait time. ASSISTANT * Telephone Encounter - Denae Rausch - 08/28/2018 8:32 AM CST Patient calling to check on refill request for Xanax made on 07-28-18. Patient made aware that request is pending with MD. Patient requested that request be sent back to MD high priority. ASSISTANT * Telephone Encounter - Анна Mathew, ZANE - 08/27/2018 1:[address] ASSISTANT Patient's sister calling again to check on status of xanax refill. Also states the pharmacy is unable to fill prednisone prescription due to needing clarification on directions. Please call [facility] or patient sister back today. [phone] ASSISTANT * Telephone Encounter - Kari Finley, ZANE - 08/27/2018 8:22 AM CST Telephone call from patient. Patient stated that he did get his Prednisone but he did not get the Xanax. Patient is requesting that the Xanax be refilled [facility] as he has been out of it for a week. ASSISTANT * Telephone Encounter - Mehnaz Gutierrez - [...] no routed to [facility] scheduling ONLY no. 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
--- OUTSIDE RECORDS SUMMARY | 2024-12-29 21:37 | XMS_ITS | Referral Summary ---
Author Organization [facility] [address] Address [address] [place] [address] Care Team Providers Care Executive Secretary Name Role Phone Mushtaq Blake MD Unavailable [phone] Miguel Ángel Sanchez MD Unavailable Monae Velasquez MD Primary Care Provider Emelyn Curtis MD Unavailable [phone] Heena Stephenson MD Unavailable [phone] Jeffery Bro MD Unavailable [phone] Anali Flores MD Unavailable Alessandro Dominguez NP Unavailable [phone] Luciano Rodriguez MD Unavailable Allergies Active [...] 15 mg tabletIndications: 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 90 tablet 3 08/02/20 23 Active aspirin 81 mg enteric coated tabletIndications: S/P TAVR (transcatheter aortic valve replacement) Take 1 tablet (81 mg total) by mouth daily 30 tablet 11 09/19/20 23 Active budesonide-glycopy r-formoterol (BREZTRI) 160-9-4.8 mcg/actuation inhalerIndications :Panlobular emphysema (HCC),Chronic respiratory failure with hypoxia, on home oxygen therapy ([facility]) Inhale 2 puffs 2 (two) times a [...] electrophysiology Assessment & Plan (08/10/2023 5:04 PM ZYGLO TECHNICIAN): Patient has a degree of persistent bradycardia [...] mirtazapine Assessment & Plan (08/10/2023 5:04 PM ZYGLO TECHNICIAN): Chronic. Continue the buspirone and mirtazapine. They [...] specialist Assessment & Plan (08/10/2023 5:03 PM ZYGLO TECHNICIAN): Chronic. Per recent notes from Oncology and [...] constipation Assessment & Plan (08/10/2023 5:03 PM ZYGLO TECHNICIAN): Chronic back pain syndrome. Saw pain management [...] management Assessment & Plan (08/10/2023 5:02 PM ZYGLO TECHNICIAN): Chronic. Struggles with chronic pain. Was previously [...] management Assessment & Plan (08/10/2023 5:02 PM ZYGLO TECHNICIAN): Status post prior transaortic valve replacement. Care per Cardiology Chronic diastolic CHF (congestive heart failure) 01/21/2021 Assessment & Plan (03/18/2024 5:22 PM CDT): Chronic. Compensated. Continue current medication. Monitor Assessment & Plan (12/11/2023 5:55 PM CDT): Chronic. Compensated. Continue current prescription medication Assessment & Plan (08/10/2023 5:02 PM ZYGLO TECHNICIAN): Chronic. Compensated. Continue medication and care per Cardiology Persistent atrial fibrillation 01/20/2021 Assessment & Plan (03/18/2024 5:22 PM CDT): Chronic. Controlled. Continue beta-carlene and anticoagulation. Monitor Assessment & Plan (12/11/2023 5:55 PM CDT): Chronic. Stable. Continue current prescription medication. Continue anticoagulation for stroke prevention Assessment & Plan (08/10/2023 5:01 PM ZYGLO TECHNICIAN): Chronic. Follows with cardiology. Has plans for upcoming cardiac ablation and placement of pacemaker. Continue medication and care per Cardiology Chronic anticoagulation 02/19/2020 Assessment & Plan (03/18/2024 5:21 PM CDT): Chronic. Bleeding precautions recommended. Assessment & Plan (12/11/2023 5:54 PM CDT): Chronic no signs of spontaneous bleeding. Continue anticoagulation for stroke prevention. Bleeding precautions recommended Assessment & Plan (08/10/2023 5:01 PM ZYGLO TECHNICIAN): Chronic due to AFib. Discussed bleeding precautions. [...] counseling Assessment & Plan (08/10/2023 5:01 PM ZYGLO TECHNICIAN): Chronic. Counseled to quit. Reviewed health risks Chronic bilateral low back pain without sciatica 01/18/2017 Assessment & Plan (08/10/2023 5:04 PM ZYGLO TECHNICIAN): Chronic. Needs to follow up with pain management Panlobular emphysema 11/09/2016 Assessment & Plan (03/18/2024 5:24 PM CDT): Chronic. Breathing is stable. Continue breztri Assessment & Plan (12/11/2023 5:56 PM CDT): Chronic. Uncontrolled. Needs improvement. Noncompliant with inhalers. Restart BReztri. Stressed importance of smoking cessation. No signs of acute exacerbation Assessment & Plan (08/10/2023 5:00 PM ZYGLO TECHNICIAN): Chronic. Uncontrolled. Noncompliant with inhalers. Stressed importance of taking breast true regularly. Previously did not like any of the powdered inhalers. Still smoking. Patient will be referred to alternative field appraiser for management as he does not want to go to his previous 1 at [facility] Dyslipidemia 09/30/2016 Assessment & Plan (03/18/2024 5:23 PM CDT): Chronic. Tolerates atorvastatin. Continue. 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 They defer for today Assessment & Plan (12/11/2023 5:58 PM CDT): Chronic. Stable. Continue atorvastatin Assessment & Plan (08/10/2023 5:05 PM ZYGLO TECHNICIAN): Chronic. Encouraged to continue his atorvastatin for [...] decompensation Assessment & Plan (08/10/2023 5:04 PM ZYGLO TECHNICIAN): Patient has a chronic degree of mild [...] nightly Assessment & Plan (08/10/2023 5:01 PM ZYGLO TECHNICIAN): Chronic, intermittent hypoxemia. Has supplemental oxygen at night. Has been followed by pulmonology but wishes to switch to closer field appraiser Leg edema 10/31/2022 11/16/2022 Discomfort of left [...] drink = 0.6 oz pur e alcohol) [facility] Utilities Answer Date Recorded In the past 12 months has [employer] electric, gas, oil, or water company threatened [...] any clubs o r organizations such as tenriism groups, unions, fraternal or athletic groups, or [...] place to sleep or slept in a chcf (including now)? No 08/31/2023 Personal Safety Answer Date Recorded Have you ever been in or are you currently in a harmful physical or emotional relationship or is someone making you feel afraid or unsafe? Denies 03/14/2024 Sex and Gender Information Value Date Recorded Sex Assigned at Not on file Legal Sex Male 2:00 AM ZYGLO TECHNICIAN Gender Identity Not on file Sexual [...] on file Medical Devices Implanted Type Area Pullboat Engineer Device Identifier Shelf Expiration Date Model / Serial / Lot St [employer] Tendril Sts 6fr 58cm Is-1 Connector Active Fixation Bipolar Soft 58 - [id number] - [id number] Implanted:Qty: 1 on 08/11/2023 by Leon Rock MD at [facility] Lead Right: Ventricle [employer] Inc 05/25/20262087TC/ 58 / [id number] / [employer] Tendril Sts 6fr 52cm Is-1 Connector Active Fixation Bipolar Soft - [id number] Implanted:Qty: 1 on 08/11/2023 by Leon Rock MD at [facility] Lead Right: Atrial Appendage [employer] Inc 05/25/20268TC/ / / [employer] Quartet 4.7fr 86cm Quadripolar Is-4 Llll Connector 8 Curve Low 1456q/86 - [id number] - [id number] Implanted:Qty: 1 on 08/11/2023 by Leon Rock MD at [facility] Lead Right: Atrial Appendage [employer] Inc 04/24/2026 1456Q/8 6 / [id number] / Haynes V[employer] Pacemaker Dual Chamber Branner Machine Tender P Mri Compatible Quadra Allure Mp [id number] - [id number] - [id number] Implanted:Qty: 1 on 08/11/2023 by Leon Rock MD at [facility] Pacemaker Left: Infraclavicular Anterior Chest Wall [employer] [id number] / [id number] / Terumo Medical Andreas Angio-Seal Vip 6fr Closere Device [id number] - [id number] Implanted:Qty: 1 on 06/08/2022 by Demetris Kay MD at [facility] Tero CAPNIA Andreas 12/23/2022 [id number] / / [id number] Brown Lifesciences Brooke 3 Commander Brown 26mm Transcatheter Ultra Low Profile [id number] - [id number] - [id number] Implanted:Qty: 1 on 10/18/2022 by Demetris Kay MD at [facility] [employer] 05/26/2025 [id number] / [id number] / Description:Heart valve 3T o r less [employer]nes [employer] Device Clsr Perclose Prostyle Sut-Mediatd Closure-Repair Sys 22816-20 - [id number] Implanted:Qty: 1 on 10/18/2022 by Demetris Kay MD at [facility] [employer] 07/25/2024 70253-4 Haynes V[employer] Device Clsr Perclose Prostyle Sut-Mediatd Closure-Repair Sys 03865-21 - [id number] Implanted:Qty: 1 on 10/18/2022 by Demetris Kay MD at [facility] [employer] 07/25/2024 36689-0 Terumo Medical Andreas Angio-Seal Vip 6fr Closere Device [id number] - [id number] Implanted:Qty: 1 on 10/18/2022 by Demetris Kay MD at [facility] 06/24/2023 [id number] / / [id number] Medtronic Inc Coil Embolization Coated Detachable Helical Concerto 4ldo2mm Nylon Xj-0-5-[place] - [id number] Implanted:Qty: 1 on 12/07/2022 at [facility] Medtronic Inc NV-3-4- HELIX / / Medtronic Inc Coil Embolization Coated Detachable Helical Concerto 3mfx13te Nylon Ow-0-63-[place] - [id number] Implanted:Qty: 1 on 12/07/2022 at [facility] Medtronic Inc NV-5-20 -HELIX / / Haynes V[employer] Device Clsr Perclose Prostyle Sut-Mediatd Closure-Repair Sys 30124-67 - [id number] Implanted:Qty: 1 on 12/07/2022 at [facility] [employer] V[employer] [id number] 09/24/2024 71074-8 3 / / [id number] Vale Scientific Andreas Coil Emolization Coated Detachable Embold 5fbb62il [place] Tungsten [id number] 20 - [id number] Implanted:Qty: 1 on 12/07/2022 at [facility] [employer] Andreas [id number] 08/23/2025 [id number] 20 / / [id number] Vale Scientific Andreas Coil Emolization Coated Detachable [place] Tungsten Embold 7ubq1vb [id number] 40 - [id number] Implanted:Qty: 1 on 12/07/2022 at [facility] [employer] Andreas [id number] 40 / / Vale Scientific Andreas Coil Emolization Coated Detachable Embold 0nej3cl [place] Tungsten [id number] 80 - [id number] Implanted:Qty: 1 on 12/07/2022 at [facility] [employer] Andreas [id number] 07/31/2025 [id number] 80 / / [id number] Ir Marker .5mm X 1cm Preld 21ga 15cm Long Ndl Visicoil - [id number] Implanted:Qty: 1 on 01/10/2023 at [facility] Radio Med Andreas 11/22/2025 SN-050- 010-PL1 [id number] Ir Marker .5mm X 1cm Preld 21ga 15cm Long Ndl Visicoil - [id number] Implanted:Qty: 1 on 01/10/2023 at [facility] [employer] Andreas 04/24/2025 SN-050- 010-PL1 [id number] Ir Marker .5mm X 1cm Preld 21ga 15cm Long Ndl Visicoil - [id number] Implanted:Qty: 1 on 01/10/2023 at [facility] [employer] Andreas 11/22/2025 SN-050- 010-PL1 [id number] Ir Marker .5mm X 1cm Preld 21ga 15cm Long Ndl Visicoil - [id number] Implanted:Qty: 1 on 01/10/2023 at [facility] [employer] Andreas 11/22/2025 SN-050- 010-PL1 [id number] Medtronic Inc Tyrx Absorbable Antibacterial Envelope-Large 3.3x2.9in Vmau0800 - [id number] Implanted:Qty: 1 on 09/01/2023 by Leon Rock MD at [facility] Medtronic Inc 05/18/2024 [id number] / / [id number] Terumo Medical Andreas Angio-Seal Vip 6fr Closere Device [id number] - [id number] Implanted:Qty: 1 on 01/09/2024 at [facility] Ter[employer]o Medical Andreas 08/02/2024 [id number] / / [id number] Vale Scientific Andreas Coil Emolization Coated Detachable Embold 7fbg25hd [place] Tungsten [id number] 50 - [id number] Implanted:Qty: 1 on 01/09/2024 at [facility] [employer] Andreas [id number] 08/15/2026 [id number] 50 / / [id number] Vale Scientific Andreas Coil Emolization Coated Detachable Embold 8yqv78dj [place] Tungsten [id number] 00 - [id number] Implanted:Qty: 1 on 01/09/2024 at [facility] [employer] Andreas [id number] 09/07/2026 [id number] 00 / / [id number] Vale Scientific Andreas Coil Emolization Coated Detachable [place] Tungsten Embold 5mrx6kn [id number] 40 - [id number] Implanted:Qty: 1 on 01/09/2024 at [facility] [employer] Andreas [id number] 07/25/2026 [id number] 40 / / [id number] [email or web address] Angio-Seal Vip 6fr Closere Device 770237 - [id number] Implanted:Qty: 1 on 03/14/2024 at [facility] [employer]Life[employer] Andreas 08/28/2024 [id number] / / [id number] Explanted Type Area Pullboat Engineer Device Identifier Shelf Expiration Date Model / Serial / Lot Invia.cz Medical Inc Guy Flexi-Stent 7fr 9cm Small Pigtail Flexible .035in Stent 6575 - [id number] Implanted:Qty: 1 on 03/15/2023 by Rusty Pendleton MD at [facility] Explanted:Qty: 1 on 03/17/2023 by Ronald Cortez MD at [facility] Stent N/A: Pancreas Invia.cz Medical Inc [id number] 09/25/2021 6575 / / [id number] 37 Vale Scientific Andreas Wallflex 10mm X 60mm Fully Covered Biliary [id number] - [id number] Implanted:Qty: 1 on 03/15/2023 by Rusty Pendleton MD at [facility] Explanted:Qty: 1 on 03/17/2023 by Ronald Cortez MD at [facility] Stent N/A: Bile Duct Vale Scientific Andreas [id number] 12/05/2024 [id number] / / [id number] Procedures Procedure Name Priority Date/Time Associated Diagnosis [...] HOSPITAL Electronically signed by: Misbah Li M.D. Iqra Hedrick MD IMG CT PROCEDURES Gladys l Result * (ABNORMAL) Hepatitis C (HCV) RNA PCR, quantitative (05/13/2016 9:11 AM CDT) [facility] HBsAb log IU/mL 2.0 () log IU 6 7:33 AM [employer] g4interactive HISTORICAL RESULTS Comment: INTERPRETIVE INFORMATION: Hepatitis C [...] IU/mL 110 () IU/mL 05/18/2016 7:33 AM [employer] g4interactive HISTORICAL RESULTS HCV RNA result Detected( H) Not Detected 05/18/2016 7:33 AM [employer] g4interactive HISTORICAL RESULTS HCV RNA See Note () 05/18/2016 7:33 AM CDT [employer]inter[employer] HISTORICAL RESULTS Comment: Access [employer] Enhanced Report using either link below: -Direct access: [email or web address] -Enter Username, Password: [email or web address] Username: [email or web address] Password: [email or web address] Performed by [facility], [address] [place] [id number] [email or web address] Chico Quevedo MD, Lab. Director 05/13/2016 9:11 AM CDT 05/13/2016 9:22 AM CDT us Janis Vasquez NP LAB MICROBIOLOGY - GENERAL ORDERABLES Final Result Performing Organization Address [facility]/ZIP Co de Phone Number [facility] [employer] HISTORICAL RESULTS * Occult blood, fecal non neoplasm screening (05/01/2016 10:10 AM CDT) Stool Occult Blood NEGATIVE NEGATIVE 05/01/2016 12:14 PM CDT [facility] [employer] HISTORICAL RESULTS 05/01/2016 10:1 0 AM CDT 05/01/2016 11:57 AM CDT Narrative [facility] [employer] HISTORICAL RESULTS - 05/01/2016 12:14 PM CDT Collected By us nAthony Zamudio MD LAB BODY FLUIDS AND ST OOLS ORDERABLES Final Result [facility] [employer] HISTORICAL RESULTS from Last 3 Months or Most Recently Relevant to Health Maintenance Insurance [facility] MEDICARE ADVANTAGE Member Subscriber Plan / Payer (Ef fective 2021-Present) Name:Guero Ahmadi Relation to Subscriber:Self Name:Guero Ahmadi Payer ID:[id number] (NAIC) Type:UHC MEDICARE Address: [place] [id number] [employer] MEDICARE ADVANTAGE Advance Directives For more information, please contact: [phone] * Full Code (Latest Code Status on [...] 11:04 AM 08/12/2023 2:30 PM Care Teams Executive Secretary Relationship Specialty Start Date End Date Monae Velasquez MD [address] DEPT [place] [address] PCP - General Family Practice 12/14/22 Mushtaq Blake MD Medical Oncologist/Hematologi st Hematology and Oncology 09/09/22 Miguel Ángel Sanchez MD [address] [place] [address] Consulting Physician Radiation Oncology 12/09/22 Emelyn Curtis MD [address] DIV IM MEDICAL ONCOLOGY, [address] [place] [address] Consulting Physician Medical Oncology 04/17/23 Heena Stephenson MD [address] [place] [address] Fellow General Surgery 04/17/23 Jeffery Bro MD [address] [place] [address] Referring Physician Gastroenterology 05/16/23 Anali Flores MD [address] [place] [address] Consulting Physician Cardiology 05/22/23 [place] [address] [place] [address] Nurse Practitioner Pain Management 05/22/23 [place] [address] [place] [address] Consulting Physician Interventional Radiology 03/14/24
--- OUTSIDE RECORDS SUMMARY | 2024-12-29 21:37 | XMS_ITS | Clinical Summary ---
Author Organization [facility] Address [address], [facility] [address] [place] [address] Phone Care Team Providers Care Rn Military Name Role Phone Unavailable Primary Care Provider [...] 02/02/2017 Overview (02/02/2017): Cardio follows; Dr Santana; [place], [place] [phone] COPD (chronic obstructive pulmonary disease) 07/2017 Overview [...] [facility] [place] [address] [place] [address] Marisa Carcamo, FOREST from Last 3 [...] Comments Blood Pressure 98/54 11/15/2021 11:25 AM ELECTRO MECHANICAL ENGINEER Pulse 61 11/15/2021 11:25 AM ELECTRO MECHANICAL ENGINEER Temperature 36.3 C (97.4 F) 11/15/2021 11:25 AM ELECTRO MECHANICAL ENGINEER Respiratory Rate 12 11/15/2021 11:2 5 AM ELECTRO MECHANICAL ENGINEER Oxygen Saturation 98% 11/15/2021 11: 25 AM ELECTRO MECHANICAL ENGINEER Inhaled Oxygen Concentration - - Weight 69.7 kg (153 lb 11.2 oz) 02/21/2 022 11:25 AM ELECTRO MECHANICAL ENGINEER Height 175.3 cm (5' 9 ) 11/15/2021 11:2 5 AM ELECTRO MECHANICAL ENGINEER Body Mass Index 22.7 11/15/2021 11:25 AM ELECTRO MECHANICAL ENGINEER Plan of Treatment Health Maintenance Due Date [...] this topic Medical Devices Implanted Type Area Lining Layer Device Identifier Shelf Expiration Date Model / Serial / Lot Angioseal Vip 6fr - [id number] Implanted:Qty : 1 on 06/08/2017 by Deyanira Rick MD at [facility] IMPLANT Right: Groin TERUMO / CARDIOVASCULAR SYSTEM 02/22/2018 [id number] / [id number] Procedures Procedure Name Priority Date/Time Associated Diagnosis Comments CT CHEST SCREENING WO Routine 11/19/2021 12:00 AM ELECTRO MECHANICAL ENGINEER Smoker Personal history of nicotine dependence PSA SCREEN 11/19/2021 12:00 AM ELECTRO MECHANICAL ENGINEER from Last 3 Months or Most Recently Relevant to Health Maintenance Results * CT CHEST SCREENING WO (11/19/2021 12:00 AM ELECTRO MECHANICAL ENGINEER) Anatomical Region Laterality Modality Chest N/A Other 11/19/2021 us Marisa Carcamo PAC IMG CT ORDERABLES Final Result * PSA SCREEN (11/19/2021 12:00 AM ELECTRO MECHANICAL ENGINEER) Blood 11/19/2021 us Not On File Provider CHEMISTRY ORDERABLES Edited Result - Final SCAN from Last 3 Months or Most Recently Relevant to Health Maintenance Insurance MEDICAID [place] MEDICARE C [employer] [address] [place] [id number] MEDICARE C [facility] MEDICAID [place] Advance Directives Documents on File Type Date Recorded Patient Marking Room Supervisor Expl anation Advance Care Planning Discussion 02/25/2019 8:54 AM ACP DISCUSSION RECOR D 02/22/2019 POLST/POST/[place] DNR 02/12/2019 10:32 AM POLS T 02/11/19 [...]
--- OUTSIDE RECORDS SUMMARY | 2024-12-29 21:37 | XMS_ITS | Encounter Summary ---
Author Organization [facility] Care Team Providers Care Yarder Boss Name Role Phone Andrew Dawson MD Primary Care Provider [phone] Andrew Dawson MD Primary Care Provider [phone] Vinicio Dinero MD Primary Care Provider [phone] Mushtaq Blake MD Unavailable [phone] Miguel Ángel Sanchez MD Unavailable [phone] Monae Velasquez MD Primary Care Provider Emelyn Curtis MD Unavailable [phone] Heena Stephenson MD Unavailable [phone] Jeffery Bro MD Unavailable [phone] Anali Flores MD Unavailable [phone] Alessandro Dominguez NP Unavailable [phone] Luciano Rodriguez MD Unavailable Encounter Details Date Type Department Care Team (Latest Contact Info) Description 11/18/2015 Orders Only [facility] CLINCONV Provider, MD Sourav [address] [place] [id number] Social History Tobacco Use Types Packs/Day Years Used Date Smoking Tobacco: Never Assessed Sex and Gender Information Value Date Recorded Sex Assigned at Not on file Legal Sex Male 2:00 AM PRIMER CHARGING TOOL SETTER Gender Identity Not on file Sexual Orientation Not on file documented as of this encounter Plan of Treatment Not on file documented as of this encounter Procedures Procedure Name Priority Date/Time Associated Diagnosis Comments SCAN - LABS 11/18/2015 12:00 AM PRIMER CHARGING TOOL SETTER documented in this encounter Results * SCAN - LABS (11/18/2015 12:00 AM PRIMER CHARGING TOOL SETTER) Narrative 11/18/2015 12:00 AM PRIMER CHARGING TOOL SETTER Ordered by an unspecified provider. us Historical Provider Final Res ult documented in this encounter Visit Diagnoses Not on filedocumented in this encounter Additional Health Concerns Infection Onset Date Last Indicated Resolved Time COVID: Suspected 05/04/2023 05/04/2023 05/04/2023 8:26 PM CDT COVID: Suspected 03/04/2024 03/04/2024 03/04/2024 4:06 PM CDT documented as of this encounter Care Teams Yarder Boss Relationship Specialty Start Date End Date Andrew Dawson MD PCP - General Cardiology 12/10/18 10/23/19 Andrew Dawson MD [address] [address] PCP - General Family Medicine 10/24/19 10/19/21 Vinicio Dinero MD [address] [place] [address] PCP - General Internal Medicine 10/20/21 12/13/22 Monae Velasquez MD [address] DEPT [place] [address] PCP - General Family Practice 12/14/22 Mushtaq Blake MD [address] [place] [address] Medical Oncologist/Hematologi st Hematology and Oncology 09/09/22 Miguel Ángel Sanchez MD [address] DEPT [place] [address] Consulting Physician Radiation Oncology 12/09/22 Emelyn Curtis MD [address] DIV IM MEDICAL ONCOLOGY, [address] [place] [address] Consulting Physician Medical Oncology 04/17/23 Heena Stephenson MD [address] [place] [address] Fellow General Surgery 04/17/23 Jeffery Bro MD [address] [place] [address] Referring Physician Gastroenterology 05/16/23 Anali Flores MD [address] [facility] [address] [place] [address] Consulting Physician Cardiology 05/22/23 [place] [address] [place] [address] Nurse Practitioner Pain Management 05/22/23 [place] [address] [place] [address] Consulting Physician Interventional Radiology 03/14/24 documented as of this encounter
--- OUTSIDE RECORDS SUMMARY | 2024-12-29 21:37 | XMS_ITS ---
Author Organization [facility] [address] Address [address] [place] [address] Care Team Providers Care Legal Technician Name Role Phone Mushtaq Blake MD Unavailable [phone] Miguel Ángel Sanchez MD Unavailable [phone] Monae Velasquez MD Primary Care Provider Emelyn Curtis MD Unavailable [phone] Heena Stephenson MD Unavailable [phone] Jeffery Bro MD Unavailable [phone] Anali Flores MD Unavailable [phone] Alessandro Dominguez NP Unavailable Luciano Rodriguez MD Unavailable [phone] Active Problems Problem Noted Date Diagnosed Date [...] SSS, Afib, AV Node Ablation. DOI 08/11/2023-[facility] [place] remote. Sick sinus syndrome 07/20/2023 Assessment & Plan (12/11/2023 6:00 PM CDT): Chronic. Status post pacemaker. Stable. Continue care per cardiology and electrophysiology Assessment & Plan (08/10/2023 5:04 PM REGULATORY AFFAIRS STRATEGY SPECIALIST): Patient has a degree of persistent bradycardia [...] mirtazapine Assessment & Plan (08/10/2023 5:04 PM REGULATORY AFFAIRS STRATEGY SPECIALIST): Chronic. Continue the buspirone and mirtazapine. They [...] specialist Assessment & Plan (08/10/2023 5:03 PM REGULATORY AFFAIRS STRATEGY SPECIALIST): Chronic. Per recent notes from Oncology and [...] constipation Assessment & Plan (08/10/2023 5:03 PM REGULATORY AFFAIRS STRATEGY SPECIALIST): Chronic back pain syndrome. Saw pain management [...] management Assessment & Plan (08/10/2023 5:02 PM REGULATORY AFFAIRS STRATEGY SPECIALIST): Chronic. Struggles with chronic pain. Was previously [...] management Assessment & Plan (08/10/2023 5:02 PM REGULATORY AFFAIRS STRATEGY SPECIALIST): Status post prior transaortic valve replacement. Care per Cardiology Chronic diastolic CHF (congestive heart failure) 01/21/2021 Assessment & Plan (03/18/2024 5:22 PM CDT): Chronic. Compensated. Continue current medication. Monitor Assessment & Plan (12/11/2023 5:55 PM CDT): Chronic. Compensated. Continue current prescription medication Assessment & Plan (08/10/2023 5:02 PM REGULATORY AFFAIRS STRATEGY SPECIALIST): Chronic. Compensated. Continue medication and care per Cardiology Persistent atrial fibrillation 01/20/2021 Assessment & Plan (03/18/2024 5:22 PM CDT): Chronic. Controlled. Continue beta-carlene and anticoagulation. Monitor Assessment & Plan (12/11/2023 5:55 PM CDT): Chronic. Stable. Continue current prescription medication. Continue anticoagulation for stroke prevention Assessment & Plan (08/10/2023 5:01 PM REGULATORY AFFAIRS STRATEGY SPECIALIST): Chronic. Follows with cardiology. Has plans for upcoming cardiac ablation and placement of pacemaker. Continue medication and care per Cardiology Chronic anticoagulation 02/19/2020 Assessment & Plan (03/18/2024 5:21 PM CDT): Chronic. Bleeding precautions recommended. Assessment & Plan (12/11/2023 5:54 PM CDT): Chronic no signs of spontaneous bleeding. Continue anticoagulation for stroke prevention. Bleeding precautions recommended Assessment & Plan (08/10/2023 5:01 PM REGULATORY AFFAIRS STRATEGY SPECIALIST): Chronic due to AFib. Discussed bleeding precautions. [...] counseling Assessment & Plan (08/10/2023 5:01 PM REGULATORY AFFAIRS STRATEGY SPECIALIST): Chronic. Counseled to quit. Reviewed health risks Chronic bilateral low back pain without sciatica 01/18/2017 Assessment & Plan (08/10/2023 5:04 PM REGULATORY AFFAIRS STRATEGY SPECIALIST): Chronic. Needs to follow up with pain management Panlobular emphysema 11/09/2016 Assessment & Plan (03/18/2024 5:24 PM CDT): Chronic. Breathing is stable. Continue breztri Assessment & Plan (12/11/2023 5:56 PM CDT): Chronic. Uncontrolled. Needs improvement. Noncompliant with inhalers. Restart BReztri. Stressed importance of smoking cessation. No signs of acute exacerbation Assessment & Plan (08/10/2023 5:00 PM REGULATORY AFFAIRS STRATEGY SPECIALIST): Chronic. Uncontrolled. Noncompliant with inhalers. Stressed importance of taking breast true regularly. Previously did not like any of the powdered inhalers. Still smoking. Patient will be referred to alternative career resource specialist for management as he does not want to go to his previous 1 at [facility] Dyslipidemia 09/30/2016 Assessment & Plan (03/18/2024 5:23 PM CDT): Chronic. Tolerates atorvastatin. Continue. 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 They defer for today Assessment & Plan (12/11/2023 5:58 PM CDT): Chronic. Stable. Continue atorvastatin Assessment & Plan (08/10/2023 5:05 PM REGULATORY AFFAIRS STRATEGY SPECIALIST): Chronic. Encouraged to continue his atorvastatin for [...] decompensation Assessment & Plan (08/10/2023 5:04 PM REGULATORY AFFAIRS STRATEGY SPECIALIST): Patient has a chronic degree of mild [...] nightly Assessment & Plan (08/10/2023 5:01 PM REGULATORY AFFAIRS STRATEGY SPECIALIST): Chronic, intermittent hypoxemia. Has supplemental oxygen at night. Has been followed by pulmonology but wishes to switch to closer career resource specialist Leg edema 10/31/2022 11/16/2022 Discomfort of left [...]
--- OUTSIDE RECORDS SUMMARY | 2024-12-29 21:37 | XMS_ITS | Encounter Summary ---
Author Organization [facility] Care Team Providers Care Cable Splicer Assistant Name Role Phone Andrew Dawson MD Primary Care Provider [phone] Andrew Dawson MD Primary Care Provider [phone] Vinicio Dinero MD Primary Care Provider [phone] Mushtaq Blake MD Unavailable [phone] Miguel Ángel Sanchez MD Unavailable [phone] Monae Velasquez MD Primary Care Provider Emelyn Curtis MD Unavailable [phone] Heena Stephenson MD Unavailable [phone] Jeffery Bro MD Unavailable [phone] Anali Flores MD Unavailable [phone] Alessandro Dominguez NP Unavailable [phone] Luciano Rodriguez MD Unavailable Encounter Details Date Type Department Care Team (Latest Contact Info) Description 02/15/2015 Orders Only [facility] CLINCONV Provider, MD Sourav [address] [place] [address] Social History Tobacco Use Types Packs/Day Years Used Date Smoking Tobacco: Never Assessed Sex and Gender Information Value Date Recorded Sex Assigned at Not on file Legal Sex Male 2:00 AM SUPERVISOR LEAF SPRING REPAIR Gender Identity Not on file Sexual Orientation [...] documented as of this encounter Care Teams Cable Splicer Assistant Relationship Specialty Start Date End Date Andrew Dawson MD PCP - General Cardiology 12/10/18 10/23/19 Andrew Dawson MD [address] [address] PCP - General Family Medicine 10/24/19 10/19/21 Vinicio Dinero MD [address] [place] [address] PCP - General Internal Medicine 10/20/21 12/13/22 Monae Velasquez MD [address] [place] [address] PCP - General Family Practice 12/14/22 Mushtaq Blake MD [address] [place] [address] Medical Oncologist/Hematologi st Hematology and Oncology 09/09/22 Miguel Ángel Sanchez MD [address] [place] [address] Consulting Physician Radiation Oncology 12/09/22 Emelyn Curtis MD [address] DIV IM MEDICAL ONCOLOGY, [address], 7B, [address] [place] [address] Consulting Physician Medical Oncology 04/17/23 Heena Stephenson MD [address] [place] [address] Fellow General Surgery 04/17/23 Jeffery Bro MD [address] [facility] [address] [place] [id number] Referring Physician Gastroenterology 05/16/23 Anali Flores MD [address] [facility] [address] [place] [address] Consulting Physician Cardiology 05/22/23 Alessandro Dominguez PROGRAM ARRANGER [address] [place] [address] Nurse Practitioner Pain Management 05/22/23 [place] [address] [place] [address] Consulting Physician Interventional Radiology 03/14/24 documented as of this encounter
--- OUTSIDE RECORDS SUMMARY | 2024-12-29 21:37 | XMS_ITS | Encounter Summary ---
Author Organization [facility] Address [address] [place] [address] Phone Care Team Providers Care Cyber Operator Name Role Phone Andrew Dawson MD Primary Care Provider Vinicio Dinero MD Primary Care Provider [phone] Marisa Carcamo PAC Unavailable Marisa Carcamo PAC Primary Care Pro vider Reason for Visit * Reason Comments Medication Refill Encounter Details Date Type Department Care Team (Late st Contact Info) Description 05/28/2020 Refill [facility] - Family Medicine [facility] [address]2 [place] [address] Andrew Dawson MD #[address] [address] Medication Refill Social History Tobacco Use Types [...] 19 08/02/2021 08/02/2021 08/22/2021 12:1 6 AM VARNISH REMOVER COVID - 19 11/03/2021 11/03/2021 11/23/2021 12:1 6 AM VARNISH REMOVER Assessment Noted Time PHQ-9 Depression Total Score: 0 03/12/20 20 12:31 PM CDT documented as of this encounter Care Teams Cyber Operator Relationship Specialty Start Date End Date Andrew Dawson MD #[address] [address] PCP - General Family Medicine 11/08/16 01/29/21 Vinicio Dinero MD [address] [place] [address] PCP - General Internal Medicine 01/30/21 07/26/21 Marisa Carcamo, PAC [address] [place] [address] PCP - General Physician Cabinet Maker 07/27/21 12/25/24 Marisa Carcamo, PAC [address] [place] [address] Physician Cabinet Maker Physician Cabinet Maker 01/30/21 documented as of this encounter
--- OUTSIDE RECORDS SUMMARY | 2024-12-29 21:37 | XMS_ITS | Encounter Summary ---
Author Organization [facility] Facility Care Team Providers Care Dynamite Cartridge Crimper Name Role Phone Andrew Dawson MD Primary Care Provider [phone] Andrew Dawson MD Primary Care Provider [phone] Vinicio Dinero MD Primary Care Provider [phone] Mushtaq Blake MD Unavailable [phone] Miguel Ángel Sanchez MD Unavailable [phone] Monae Velasquez MD Primary Care Provider Emelyn Curtis MD Unavailable [phone] Heena Stephenson MD Unavailable [phone] Jeffery Bro MD Unavailable [phone] Anali Flores MD Unavailable [phone] Alessandro Dominguez NP Unavailable [phone] Luciano Rodriguez MD Unavailable Encounter Details Date Type Department Care Team (Latest Contact Info) Description 09/28/2016 Orders Only [facility] CLINCONV Provider, MD Sourav [address] [place] [address] Social History Tobacco Use Types Packs/Day Years Used Date Smoking Tobacco: Never Assessed Sex and Gender Information Value Date Recorded Sex Assigned at Not on file Legal Sex Male 2:00 AM TURNER MACHINE Gender Identity Not on file Sexual Orientation Not on file documented as of this encounter Plan of Treatment Not on file documented as of this encounter Procedures Procedure Name Priority Date/Time Associated Diagnosis Comments SCAN - LABS 10/07/2016 12:00 AM TURNER MACHINE documented in this encounter Results * SCAN - LABS (10/07/2016 12:00 AM TURNER MACHINE) Narrative 10/07/2016 12:00 AM TURNER MACHINE Ordered by an unspecified provider. us Historical Provider Final Res ult documented in this encounter Visit Diagnoses Not on filedocumented in this encounter Additional Health Concerns Infection Onset Date Last Indicated Resolved Time COVID: Suspected 05/04/2023 05/04/2023 05/04/2023 8:26 PM CDT COVID: Suspected 03/04/2024 03/04/2024 03/04/2024 4:06 PM CDT documented as of this encounter Care Teams Dynamite Cartridge Crimper Relationship Specialty Start Date End Date Andrew Dawson MD PCP - General Cardiology 12/10/18 10/23/19 Andrew Dawson MD [address] [address] PCP - General Family Medicine 10/24/19 10/19/21 Vinicio Dinero MD [address] [place] [address] PCP - General Internal Medicine 10/20/21 12/13/22 Monae Velasquez MD [address] [place] [address] PCP - General Family Practice 12/14/22 Mushtaq Blake MD [address] [place] [address] Medical Oncologist/Hematologi st Hematology and Oncology 09/09/22 Miguel Ángel Sanchez MD [address] [place] [address] Consulting Physician Radiation Oncology 12/09/22 Emelyn Curtis MD [address] DIV IM MEDICAL ONCOLOGY, [address], 7B, [address]C [place] [address] Consulting Physician Medical Oncology 04/17/23 Heena Stephenson MD [address] [place] [address] Fellow General Surgery 04/17/23 Jeffery Bro MD [address] [place] [address] Referring Physician Gastroenterology 05/16/23 Anali [place] MD [address] [facility] [address] [place] [address] Consulting Physician Cardiology 05/22/23 [place] [address] [place] [address] Nurse Practitioner Pain Management 05/22/23 [place] [address] [place] [address] Consulting Physician Interventional Radiology 03/14/24 documented as of this encounter
--- OUTSIDE RECORDS SUMMARY | 2024-12-29 21:37 | XMS_ITS | Encounter Summary ---
Author Organization [facility] Address [address] [place] [address] Phone Care Team Providers Care Track Rider Name Role Phone Marisa Carcamo PAC Primary Care Pro vider Reason for Visit * Reason Comments Medication Refill Encounter Details Date Type Department Care Team (Late st Contact Info) Description 02/05/2023 Refill [facility] - Internal Medicine - [place] [address] [place] [address] Marisa Carcamo, [facility] [address] [place] [address] Medication Refill Social History Tobacco [...] Depression Total Score: 11 021 3:00 PM CONTACT WORKER documented as of this encounter Care Teams Track Rider Relationship Specialty Start Date End Date Marisa Carcamo PAC [address] [place] [address] PCP - General Physician Assembly Leader 07/27/21 12/25/24 documented as of this encounter
--- OUTSIDE RECORDS SUMMARY | 2024-12-29 21:37 | XMS_ITS | Encounter Summary ---
Author Organization [facility] Address [address] [place] [address] Phone Care Team Providers Care Yard Jockey Name Role Phone Andrew Dawson MD Primary Care Provider [phone] Vinicio Dinero MD Primary Care Provider [phone] Marisa Carcamo PAC Unavailable Marisa Carcamo PAC Primary Care Pro vider Reason for Visit * Reason Onset Date Comments Medication Refill Medication Refill 06/08/2020 Medication Refill 06/10/2020 Encounter Details Date Type Department Care Team (Late st Contact Info) Description 06/02/2020 Refill [facility] - Family Medicine [facility] [address]2 [place] [address] Andrew Dawson MD #[address] [address] Medication Refill; Medication Refill; Medication Refill Social [...] 1 month ago Chronic atrial fibrillation (HCC) [facility] FAMILY MEDICINE Sera Spring APN, CNP 1 month ago Tachycardia [facility] FAMILY Sera Diop APN, CNP 2 months ago Chronic bilateral low back pain without sciatica [facility] Andrew Conway MD 4 months ago Liver [facility] Andrew Dawson MD Upcoming Appointments ROUGE MIXER - Recent and Past Visits Recent Visits Date Type Provider Dept 05/12/20 Office Visit Andrew Dawson MD [facility] 04/17/20 Office Visit Sera Spring APN, JOY [facility] 04/15/20 Office Visit Sera Spring APN, EQUIPMENT VALIDATION ENGINEER [facility] 03/12/20 Office Visit Andrew Dawson MD [facility] 01/08/20 Telemedicine Andrew Dawson MD [facility] 12/31/19 Telemedicine Andrew Dawson MD [facility] 10/09/19 Office Visit Sera Spring APN, JOY [facility] 09/02/19 Office Visit Andrew Dawson MD [facility] 08/26/19 Office Visit Sánchez Jenkins APN, JOY [facility] 08/20/19 Office Visit Andrew Dawson MD [facility] [place] Showing recent visits within past 460 [...] 19 08/02/2021 08/02/2021 08/22/2021 12:1 6 AM SOLUTION DESIGNER COVID - 19 11/03/2021 11/03/2021 11/23/2021 12:1 6 AM SOLUTION DESIGNER Assessment Noted Time PHQ-9 Depression Total Score: 0 03/12/20 12:31 PM CDT documented as of this encounter Care Teams Yard Jockey Relationship Specialty Start Date End Date Andrew Dawson MD #[address] [address] PCP - General Family Medicine 11/08/16 01/29/21 Vinicio Dinero MD [address] [place] [address] PCP - General Internal Medicine 01/30/21 07/26/21 Marisa Carcamo, [facility] [address] [place] [address] PCP - General Physician Pipe Fitter Supervisor Maintenance 07/27/21 12/25/24 Marisa Carcamo, [facility] [address] [place] [address] Physician Pipe Fitter Supervisor Maintenance Physician Pipe Fitter Supervisor Maintenance 01/30/21 documented as of this encounter
--- OUTSIDE RECORDS SUMMARY | 2024-12-29 21:37 | XMS_ITS | Encounter Summary ---
Author Organization [facility] Address [address] [place] [address] Phone Care Team Providers Care Hspt Tutor Name Role Phone Andrew Daswon MD Primary Care Provider [phone] Vinicio Dinero MD Primary Care Provider [phone] Marisa Carcamo PAC Unavailable Marisa Carcamo PAC Primary Care Pro vider Reason for Visit * Reason Comments Medication Refill Encounter Details Date Type Department Care Team (Late st Contact Info) Description 07/08/2020 Refill [facility] Family [facility] #2 [place] [address] Andrew Dawson MD [address] [address] Medication Refill Social History Tobacco Use Types [...] 1 month ago Chronic atrial fibrillation (HCC) [facility] - Andrew Lopez MD 2 months ago Chronic atrial fibrillation (HCC) [facility] Sera William APN, CNP 2 months ago Tachycardia [facility] Sera William APN, CNP 3 months ago Chronic bilateral low back pain without sciatica [facility] Andrew Lopez MD 6 months ago Liver lesion [facility] Andrew Lopez MD Upcoming Appointments ONLINE EDITOR - Recent and Past Visits Recent Visits [...] 10/09/19 Office Visit Sera Spring APN, JOY [facility] [place] 09/02/19 Office Visit [facility] 08/26/19 Office Visit Sánchez Jenkins APN, TUNGSTEN TENDER [facility] 08/20/19 Office Visit Anrdew Dawson MD [facility] Showing recent visits within past 460 [...] 19 08/02/2021 08/02/2021 08/22/2021 12:1 6 AM INTELLECTUAL PROPERTY LAWYER COVID - 19 11/03/2021 11/03/2021 11/23/2021 12:1 6 AM INTELLECTUAL PROPERTY LAWYER Assessment Noted Time PHQ-9 Depression Total Score: 0 03/12/20 20 12:31 PM CDT documented as of this encounter Care Teams Hspt Tutor Relationship Specialty Start Date End Date Andrew Dawson MD #[address] [address] PCP - General Family Medicine 11/08/16 01/29/21 Vinicio Dinero MD [address] [place] [address] PCP - General Internal Medicine 01/30/21 07/26/21 Marisa Carcamo, [facility] [address] [place] [address] PCP - General Physician Towerman 07/27/21 12/25/24 Marisa Carcamo, [facility] [address] [place] [address] Physician Towerman Physician Towerman 01/30/21 documented as of this encounter
--- OUTSIDE RECORDS SUMMARY | 2024-12-29 21:37 | XMS_ITS | Encounter Summary ---
Author Organization [facility] Address [address] [place] [address] Phone Care Team Providers Care Digital Artist Name Role Phone Marisa Carcamo PAC Primary Care Pro vider Reason for Visit * Reason Comments Medication Refill Encounter Details Date Type Department Care Team (Late st Contact Info) Description 11/14/2022 Refill [facility] - [place] [address] [place] [address] Marisa Carcamo, [facility] [address] [place] [address] Medication Refill Social History Tobacco [...] with SSRI for at least 6 months IR WEAVER documented in this encounter Plan of Treatment Not on file documented as of this encounter Visit Diagnoses Not on filedocumented in this encounter Additional Health Concerns Assessment Noted Time PHQ-9 Depression Total Score: 11 021 3:00 PM REPAIR WEAVER documented as of this encounter Care Teams Digital Artist Relationship Specialty Start Date End Date Marisa Carcamo PAC [address] [place] [address] PCP - General Physician Hot Mill Supervisor 07/27/21 12/25/24 documented as of this encounter
--- OUTSIDE RECORDS SUMMARY | 2024-12-29 21:37 | XMS_ITS | Encounter Summary ---
Author Organization [facility] Address [address] [place] [address] Care Team Providers Care Administrative Services Officer Name Role Phone Mushtaq Blake MD Unavailable [phone] Miguel Ángel Sanchez MD Unavailable [phone] Monae Velasquez MD Primary Care Provider Emelyn Curtis MD Unavailable [phone] Heena Stephenson MD Unavailable [phone] Jeffery Bro MD Unavailable [phone] Anali Flores MD Unavailable [phone] Alessandro Dominguez NP Unavailable [phone] Lucaino Rodriguez MD Unavailable Encounter Details Date Type Department Care Team (Late st Contact Info) Description 01/04/[address] [facility] Primary Care at [address] [address] Monae Velasquez MD [address] [place] [address] [address] [place] [address] Social History Tobacco Use Types Packs/Day Years Used Date Smoking Tobacco: Every Day Cigarettes 1.5 50 Smokeless Tobacco: Never Comments:At least a pack a d ay Alcohol Use Standard Drinks/Week Comments Not Currently 0 (1 standard drink = 0.6 oz pur e alcohol) [facility] Utilities Answer Date Recorded In the [...] often do you attend chur ch or lutheran services? Never 08/31/2023 Do you belong to any clubs o r organizations such as faith groups, unions, fraternal or athletic groups, or [...] place to sleep or slept in a penitentiary (including now)? No 08/31/2023 Personal Safety Answer Date Recorded Have you ever been in or are you currently in a harmful physical or emotional relationship or is someone making you feel afraid or unsafe? Denies 08/30/2023 Sex and Gender Information Value Date Recorded Sex Assigned at Not on file Legal Sex Male 2:00 AM AIR CARRIER OPERATIONS INSPECTOR Gender Identity Not on file Sexual Orientation [...] documented as of this encounter Care Teams Administrative Services Officer Relationship Specialty Start Date End Date Monae Velasquez MD [address] [place] [address] PCP - General Family Practice 12/14/22 Mushtaq Blake MD Medical Oncologist/Hematologi st Hematology and Oncology 09/09/22 Miguel Ángel Sanchez MD [address] [place] [address] Consulting Physician Radiation Oncology 12/09/22 Emelyn Curtis MD [address] DIV IM MEDICAL ONCOLOGY, [address], 7B, [address] [place] [address] Consulting Physician Medical Oncology 04/17/23 Heena Stephenson MD [address] [place] [address] Fellow General Surgery 04/17/23 Jeffery Bro MD [address] [place] [address] Referring Physician Gastroenterology 05/16/23 RadhaAnali valdez MD [address] [place] [address] Consulting Physician Cardiology 05/22/23 [place] [address] [place] [address] Nurse Practitioner Pain Management 05/22/23 [place] [address] [place] [address] Consulting Physician Interventional Radiology 03/14/24 documented as of this encounter
--- OUTSIDE RECORDS SUMMARY | 2024-12-29 21:37 | XMS_ITS | Encounter Summary ---
Author Organization [facility] Facility Care Team Providers Care Steel Fixer Name Role Phone Andrew Dawson MD Primary Care Provider [phone] Andrew Dawson MD Primary Care Provider [phone] Vinicio Dinero MD Primary Care Provider [phone]- [phone] Mushtaq Blake MD Unavailable [phone] Migeul Ángel Sanchez MD Unavailable [phone] Monae Velasquez MD Primary Care Provider Emelyn Curtis MD Unavailable [phone] Heena Stephenson MD Unavailable [phone] Jeffery Bro MD Unavailable [phone] Anali Flores MD Unavailable [phone] Alessandro Dominguez NP Unavailable [phone] Luciano Rodriguez MD Unavailable Encounter Details Date Type Department Care Team (Latest Contact Info) Description 06/27/2016 Orders Only [facility]INCONV Provider, MD Sourav [address] [place] [address] Social History Tobacco Use Types Packs/Day Years Used Date Smoking Tobacco: Never Assessed Sex and Gender Information Value Date Recorded Sex Assigned at Not on file Legal Sex Male 2:00 AM BREAD PAN GREASER Gender Identity Not on file Sexual Orientation [...] documented as of this encounter Care Teams Steel Fixer Relationship Specialty Start Date End Date Andrew Dawson MD PCP - General Cardiology 12/10/18 10/23/19 Andrew Dawson MD [address] [address] PCP - General Family Medicine 10/24/19 10/19/21 Vinicio Dinero MD [address] [place] [address] PCP - General Internal Medicine 10/20/21 12/13/22 Monae Velasquez MD [address] [place] [address] PCP - General Family Practice 12/14/22 Mushtaq Blake MD [address] [place] [address] Medical Oncologist/Hematologi st Hematology and Oncology 09/09/22 Miguel Ángel Sanchez MD [address] [place] [address] Consulting Physician Radiation Oncology 12/09/22 Emelyn Curtis MD [address] DIV IM MEDICAL ONCOLOGY, [address], 7B, 7[address] [place] [address] Consulting Physician Medical Oncology 04/17/23 Heena Stephenson MD [address] [place] [address] Fellow General Surgery 04/17/23 Jeffery Bro MD [address] [facility] [address] [place] [id number] Referring Physician Gastroenterology 05/16/23 Anali Flores MD [address] [facility] [address] [place] [address] Consulting Physician Cardiology 05/22/23 Alessandro Dominguez EMISSIONS TESTING TECHNICIAN [address] [place] [address] Nurse Practitioner Pain Management 05/22/23 [place] [address] [place] [address] Consulting Physician Interventional Radiology 03/14/24 documented as of this encounter
--- OUTSIDE RECORDS SUMMARY | 2024-12-29 21:37 | XMS_ITS | Encounter Summary ---
Author Organization [facility] Address [address] [place] [address] Phone Care Team Providers Care Equipment Service Technician Name Role Phone Andrew Dwason MD Primary Care Provider [phone] Vinicio Dinero MD Primary Care Provider [phone] Marisa Carcamo PAC Unavailable Marisa Carcamo PAC Primary Care Pro vider Reason for Visit * Reason Onset Date Comments Medication Refill 03/10/2020 Encounter Details Date Type Department Care Team (Late st Contact Info) Description 03/10/2020 Refill [facility] [address] [place] [id number] Andrew Dawson MD #[address] [address] Medication Refill Social History Tobacco Use Types [...] 19 08/02/2021 08/02/2021 08/22/2021 12:1 6 AM METAL SPRAYER PROTECTIVE COATING COVID - 19 11/03/2021 11/03/2021 11/23/2021 12:1 6 AM METAL SPRAYER PROTECTIVE COATING Assessment Noted Time PHQ-9 Depression Total Score: 0 10/09/19 20 8:42 AM METAL SPRAYER PROTECTIVE COATING documented as of this encounter Care Teams Equipment Service Technician Relationship Specialty Start Date End Date Andrew Dawson MD [address] [address] PCP - General Family Medicine 11/08/16 01/29/21 Vinicio Dinero MD [address] [place] [address] PCP - General Internal Medicine 01/30/21 07/26/21 Marisa Carcamo [facility] [address] [place] [address] PCP - General Physician Decontamination Technician 07/27/21 12/25/24 Marisa Carcamo, [facility] [address] [place] [address] Physician Decontamination Technician Physician Decontamination Technician 01/30/21 documented as of this encounter
--- OUTSIDE RECORDS SUMMARY | 2024-12-29 21:37 | XMS_ITS | Encounter Summary ---
Author Organization [facility] Address [address] [place] [address] Phone Care Team Providers Care Public Address System Operator Name Role Phone Andrew Dawson MD Primary Care Provider [phone] Vinicio Dinero MD Primary Care Provider [phone] Marisa Carcamo PAC Unavailable Marisa Carcamo PAC Primary Care Pro vider Reason for Visit * Reason Comments Medication Refill Encounter Details Date Type Department Care Team (Late st Contact Info) Description 05/11/2020 Refill [facility] #2 [place] [id number] Sera Spring APRN, RN LABOR AND DELIVERY #[address] [address] Medication Refill Social History Tobacco [...] 19 08/02/2021 08/02/2021 08/22/2021 12:1 6 AM WEBSPHERE ARCHITECT COVID - 19 11/03/2021 11/03/2021 11/23/2021 12:1 6 AM WEBSPHERE ARCHITECT Assessment Noted Time PHQ-9 Depression Total Score: 0 03/12/20 20 12:31 PM CDT documented as of this encounter Care Teams Public Address System Operator Relationship Specialty Start Date End Date Andrew Dawson MD [address] [address] PCP - General Family Medicine 11/08/16 01/29/21 Vinicio Dinero MD [address] [place] [address] PCP - General Internal Medicine 01/30/21 07/26/21 Marisa Carcamo PAC [address] [place] [address] PCP - General Physician Sheltered Workshop Executive Director 07/27/21 12/25/24 Marisa Carcamo PAC [address] [place] [address] Physician Sheltered Workshop Executive Director Physician Sheltered Workshop Executive Director 01/30/21 documented as of this encounter
--- OUTSIDE RECORDS SUMMARY | 2024-12-29 22:16 | XMS_ITS | Encounter Summary ---
Author Organization [facility] Address [address] [place] [address] Phone Care Team Providers Care Instructional Technology Director Name Role Phone Chiquis Carcamochon Donaldsonelle PAC Primary Care Pro vider Reason for Visit * Reason Comments Medication Refill Encounter Details Date Type Department Care Team (Late st Contact Info) Description 01/24/2022 Refill [facility] #2 [place] [address] Andrew Dawson MD #[address] [address] Medication Refill Social History Tobacco Use Types [...] Office Visit Marisa Carcamo, PAC [facility] 11/08/21 Office Visit Marisa Carcamo, PAC [facility] 08/02/21 Office Visit Marisa Carcamo, PAC [facility] 06/04/21 Office Visit Marisa Carcamo, PAC [facility] 03/19/21 Office Visit Marisa Carcamo, PAC [facility] 02/01/21 Office Visit Marisa Carcamo, PAC [facility] Showing recent visits within past 365 days [...] Depression Total Score: 11 021 3:00 PM PIG CONVEYOR OPERATOR documented as of this encounter Care Teams Instructional Technology Director Relationship Specialty Start Date End Date Marisa Carcamo PAC [address] [place] [address] PCP - General Physician Maritime Pilot 07/27/21 12/25/24 documented as of this encounter
--- OUTSIDE RECORDS SUMMARY | 2024-12-29 22:16 | XMS_ITS | Encounter Summary ---
Author Organization [facility] Address [address] [place] [address] Phone Care Team Providers Care Youth Ministry Director Name Role Phone Andrew Dawson MD Primary Care Provider Vinicio Dinero MD Primary Care Provider [phone] Marisa Carcamo PAC Unavailable Marisa Carcamo PAC Primary Care Pro vider Reason for Visit * Reason Comments Medication Refill Encounter Details Date Type Department Care Team (Late st Contact Info) Description 10/05/2020 Refill [facility] [address] [place] [address] Andrew Dawson MD #[address] [address] Medication Refill Social History Tobacco Use Types [...] 10/06/2020 12:01 PM CST Prescription pending signature MOTIVE SERVICES MANAGER * Telephone Encounter - Tatiana Em RN - 10/05/2020 4:26 PM CST Sent to PCP MOTIVE SERVICES MANAGER * Telephone Encounter - Tatiana Em RN [...] [facility] GUEST EXPERIENCE SPECIAL[facility] 4 months ago Chronic atrial fibrillation (HCC) [facility] - Andrew Lopez MD 5 months ago Chronic atrial fibrillation (HCC) [facility] - Sera William APN, GUEST EXPERIENCE SPECIALIST 5 months ago Tachycardia [facility] [place] APN, GUEST EXPERIENCE SPECIALIST 6 months ago Chronic bilateral low back pain without sciatica [facility] Andrew Lindquist MD Upcoming Appointments PREPARATION ROOM MANAGER - Recent and Past Visits Recent Visits Date Type Provider Dept 08/28/20 Office Visit Sera Spring APN, GUEST EXPERIENCE SPECIALIST [facility] [place] 05/12/20 [facility] Visit [facility] 04/17/20 Office Visit Sera Spring APN, GUEST EXPERIENCE SPECIALIST [facility] [place] 04/15/20 Office Visit Sera Spring APN, GUEST EXPERIENCE SPECIALIST [facility] [place] 03/12/20 Office Visit Andrew Dawson MD [facility] [place] 01/08/20 Telemedicine Andrew Dawson MD [facility] 12/31/19 Telemedicine Andrew Dawson MD [facility] 10/09/19 Office Visit Sera Spring APN, GUEST EXPERIENCE SPECIALIST [facility] [place] 09/02/19 Office Visit Andrew Dawson MD [facility] 08/26/19 Office Visit Sánchez Jenkins APN, GUEST EXPERIENCE SPECIALIST [facility] Showing recent visits within past 460 days with a meds authorizing provider and meeting all other requirements Future Appointments No visits were found meeting these conditions. Showing future appointments within next 90 days with a meds authorizing provider and meeting all other requirements MOTIVE SERVICES MANAGER documented in this encounter Plan of Treatment Not on file documented as of this encounter Visit Diagnoses Diagnosis Anxiety Anxiety state, unspecified documented in this encounter Additional Health Concerns Infection Onset Date Last Indicated Resolved Time COVID - 19 08/02/2021 08/02/2021 08/22/2021 12:1 6 AM AUTOMOTIVE SERVICES MANAGER COVID - 19 11/03/2021 11/03/2021 11/23/2021 12:1 6 AM AUTOMOTIVE SERVICES MANAGER Assessment Noted Time PHQ-9 Depression Total Score: 0 08/28/20 11:08 AM AUTOMOTIVE SERVICES MANAGER documented as of this encounter Care Teams Youth Ministry Director Relationship Specialty Start Date End Date Andrew Dawson MD #[address] [address] PCP - General Family Medicine 11/08/16 01/29/21 Vinicio Dinero MD [address] [place] [address] PCP - General Internal Medicine 01/30/21 07/26/21 Marisa Carcamo PAC [address] [place] [address] PCP - General Physician Music Therapy Teacher 07/27/21 12/25/24 Marisa Carcamo, PAC [address] [place] [address] Physician Music Therapy Teacher Physician Music Therapy Teacher 01/30/21 documented as of this encounter
--- OUTSIDE RECORDS SUMMARY | 2024-12-29 22:16 | XMS_ITS | Encounter Summary ---
Author Organization [facility] Address [address] [place] [address] Phone Care Team Providers Care Control Manager Name Role Phone Andrew Dawson MD Primary Care Provider Vinicio Dinero MD Primary Care Provider [phone] Marisa Carcamo PAC Unavailable Marisa Carcamo PAC Primary Care Pro vider Reason for Visit * Reason Comments Medication Refill Encounter Details Date Type Department Care Team (Late st Contact Info) Description 01/19/2021 Refill [facility] #2 [place] [address] Andrew Dawson MD #[address] [address] Medication Refill Social History Tobacco Use Types [...] Recent Outpatient Visits 1 week ago Anxiety [facility] - Andrew Lopez MD 4 weeks ago Anxiety [facility] - Andrew Lopez MD 4 months ago Anxiety [facility] - Sera William APN, CNP 8 months ago Chronic atrial fibrillation (HCC) [facility] Andrew Lopez MD 9 months ago Chronic atrial fibrillation (HCC) [facility] - Sera William APN, JOY Upcoming Appointments SOLUTIONS EXECUTIVE CLOUD SALES - Recent and Past Visits Recent Visits [...] [facility] 12/31/19 Telemedicine Andrew Dawson MD [facility] Showing recent visits within past 460 [...] - 08/02/2021 08/02/2021 08/22/2021 12:[address] TRANSCRIBER COVID - 19 11/03/2021 11/03/2021 11/23/2021 12:[address] TRANSCRIBER Assessment Noted Time PHQ-9 Depression Total Score: 0 08/28/20 11:[address] TRANSCRIBER documented as of this encounter Care Teams Control Manager Relationship Specialty Start Date End Date Andrew Dawson MD #[address] [address] PCP - General Family Medicine 11/08/16 01/29/21 Vinicio Dinero MD [address] [place] [address] PCP - General Internal Medicine 01/30/21 07/26/21 Marisa Carcamo, PAC [address] [place] [address] PCP - General Physician Scaffold Erector 07/27/21 12/25/24 Marisa Carcamo, PAC [address] [place] [address] Physician Scaffold Erector Physician Scaffold Erector 01/30/21 documented as of this encounter
--- OUTSIDE RECORDS SUMMARY | 2024-12-29 22:16 | XMS_ITS | Clinical Summary ---
Author Organization [facility] Address [address] [place] [address] Phone Care Team Providers Care Boat Assembler Name Role Phone Unavailable Primary Care Provider [...] for Spasm. 30 Tablet 10/17/2019 10:54 AM SPORTS DEVELOPMENT OFFICER 0 Active Lidocaine 4 % Adhesive Patch, Medicated Apply 1 patch only once for up to 12 hours within a 24 hour period to Left side of chest over area of most discomfort 10 Patch 10/17/2019 10:54 AM SPORTS DEVELOPMENT OFFICER 0 Active Active Problems Problem Noted Date [...] Comments Blood Pressure 102/69 10/17/2019 8:32 AM SPORTS DEVELOPMENT OFFICER Pulse 63 10/17/2019 8:32 AM SPORTS DEVELOPMENT OFFICER Temperature 36.8 C (98.2 F) 10/17/2019 8:32 AM SPORTS DEVELOPMENT OFFICER Respiratory Rate 13 10/17/2019 8:32 AM SPORTS DEVELOPMENT OFFICER Oxygen Saturation 93% 10/17/2019 8:32 AM SPORTS DEVELOPMENT OFFICER Inhaled Oxygen Concentration - - Weight 68.2 kg (150 lb 4.8 oz) 10/17/2019 2:47 A M SPORTS DEVELOPMENT OFFICER Height 172.7 cm (5' 8 ) 10/17/2019 2:47 AM SPORTS DEVELOPMENT OFFICER Body Mass Index 22.85 10/17/2019 2:47 AM SPORTS DEVELOPMENT OFFICER Plan of Treatment Health Maintenance Due Date [...]
--- OUTSIDE RECORDS SUMMARY | 2024-12-29 22:16 | XMS_ITS | Encounter Summary ---
Author Organization [facility] Address [address] [place] [address] Phone Care Team Providers Care Production Cost Estimator Name Role Phone Andrew Dawson MD Primary Care Provider Vinicio Dinero MD Primary Care Provider [phone] Marisa Carcamo PAC Unavailable Marisa Carcamo PAC Primary Care Pro vider Reason for Visit * Reason Comments Medication Refill Encounter Details Date Type Department Care Team (Late st Contact Info) Description 09/16/2020 Refill [facility] #2 [place] [address] Andrew Dawson MD #[address] [address] Medication Refill Social History Tobacco Use Types [...] COVID-19? No / Unsure 08/28/2020 10:46 AM NURSE EPIDEMIOLOGIST documented as of this encounter Miscellaneous Notes [...] Receipt confirmed by pharmacy (09/10/2020 ??8:42 AM NURSE EPIDEMIOLOGIST) ALPRAZolam (XANAX) 0.5 MG Tablet [[id number]] 0842 duplicate E EPIDEMIOLOGIST documented in this encounter Plan of Treatment Not on file documented as of this encounter Visit Diagnoses Diagnosis Anxiety Anxiety state, unspecified documented in this encounter Additional Health Concerns Infection Onset Date Last Indicated Resolved Time COVID - 19 08/02/2021 08/02/2021 08/22/2021 12:1 6 AM NURSE EPIDEMIOLOGIST COVID - 19 11/03/2021 11/03/2021 11/23/2021 12:1 6 AM NURSE EPIDEMIOLOGIST Assessment Noted Time PHQ-9 Depression Total Score: 0 08/28/20 11:08 AM NURSE EPIDEMIOLOGIST documented as of this encounter Care Teams Production Cost Estimator Relationship Specialty Start Date End Date Andrew Dawson MD #[address] [address] PCP - General Family Medicine 11/08/16 01/29/21 Vinicio Dinero MD [address] [place] [address] PCP - General Internal Medicine 01/30/21 07/26/21 Marisa Carcamo, PAC [address] [place] [address] PCP - General Physician Round Up Ring Hand 07/27/21 12/25/24 Marisa Carcamo, PAC [address] [place] [address] Physician Round Up Ring Hand Physician Round Up Ring Hand 01/30/21 documented as of this encounter
--- OUTSIDE RECORDS SUMMARY | 2024-12-29 22:16 | XMS_ITS | Encounter Summary ---
Author Organization [facility] Address [address] [place] [address] Phone Care Team Providers Care Master Tax Advisor Name Role Phone Andrew Dawson MD Primary Care Provider [phone] Vinicio Dinero MD Primary Care Provider [phone] Marisa Carcamo PAC Unavailable Marisa Carcamo PAC Primary Care Pro vider Reason for Visit * Reason Comments Medication Refill Encounter Details Date Type Department Care Team (Late st Contact Info) Description 12/21/2020 Refill [facility] #2 [place] [address] Andrew Dawson MD #[address] [address] Medication Refill Social History Tobacco Use Types [...] Recent Outpatient Visits 3 months ago Anxiety [facility] - Sera William APN, COURT RECORDING MONITOR 7 months ago Chronic atrial fibrillation (HCC) [facility] - Andrew Lopez MD 8 months ago Chronic atrial fibrillation (HCC) [facility] - Sera William APN COURT RECORDING MONITOR 8 months ago Tachycardia [facility] - Sera William APN, COURT RECORDING MONITOR 9 months ago Chronic bilateral low back pain without sciatica [facility] - Andrew Lopez MD Upcoming Appointments FIXER SUPERVISOR - Recent and Past Visits Recent Visits Date Type Provider Dept 08/28/20 Office Visit Sera Spring APN, COURT RECORDING MONITOR [facility] 05/12/20 Office Visit Andrew Dawson MD [facility] 04/17/20 Office Visit Sera Spring APN, COURT RECORDING MONITOR [facility] 04/15/20 Office Visit Sera Spring APN, COURT RECORDING MONITOR [facility] 03/12/20 Office Visit Andrew Dawson MD [facility] 01/08/20 Telemedicine Andrew Dawson MD [facility] 12/31/19 Telemedicine Andrew Dawson MD [facility] 10/09/19 Office Visit Sera Spring APN, COURT RECORDING MONITOR [facility] [place] Showing recent visits within past 460 days [...] 19 08/02/2021 08/02/2021 08/22/2021 12:1 6 AM OPHTHALMIC TECHNICIAN APPRENTICE COVID - 19 11/03/2021 11/03/2021 11/23/2021 12:1 6 AM OPHTHALMIC TECHNICIAN APPRENTICE Assessment Noted Time PHQ-9 Depression Total Score: 0 08/28/20 11:08 AM OPHTHALMIC TECHNICIAN APPRENTICE documented as of this encounter Care Teams Master Tax Advisor Relationship Specialty Start Date End Date Andrew Dawson MD #[address] [address] PCP - General Family Medicine 11/08/16 01/29/21 Vinicio Dinero MD [address] [place] [address] PCP - General Internal Medicine 01/30/21 07/26/21 Marisa Carcamo, PAC [address] [place] [address] PCP - General Physician Manual Arts Therapist 07/27/21 12/25/24 Marisa Carcamo, PAC [address] [place] [address] Physician Manual Arts Therapist Physician Manual Arts Therapist 01/30/21 documented as of this encounter
--- OUTSIDE RECORDS SUMMARY | 2024-12-29 22:16 | XMS_ITS | Encounter Summary ---
Author Organization [facility] Address [address] [place] [address] Phone Care Team Providers Care Cvir Tech Name Role Phone Andrew Dawson MD Primary Care Provider [phone] Vinicio Dinero MD Primary Care Provider [phone] Marisa Carcamo PAC Unavailable Marisa Carcamo PAC Primary Care Pro vider Reason for Visit * Reason Onset Date Comments Medication Management 10/16/2020 transfer t o triage - see note Breathing Problem 10/16/2020 difficulties b reathing Altered Mental Status 10/16/2020 confusion Encounter Details Date Type Department Care Team (Late st Contact Info) Description 10/16/2020 Nurse Triage [facility] - [facility] #2 [place] [address] Andrew Dawson MD #[address] [address] Medication Management (transfer to triage - see [...] COVID-19? No / Unsure 10/17/2020 2:19 PM BOOKING AGENT documented as of this encounter Miscellaneous Notes [...] PRD. PRD states: none. Routing to PCP. ING AGENT ING AGENT * Telephone Encounter - Kari Rose RN - 10/16/2020 2:53 PM CST Call placed to patient with this message. ING AGENT * Telephone Encounter - Andrew Dawson MD - 10/16/2020 9:06 AM CST Please call. No , I wont just order antibiotics. Go to ed to have yourself properly evaluated. ING AGENT * Telephone Encounter - Itzel Dailey RN - 10/16/2020 8:15 AM CST Felisa calling (PRD not in chart) [facility], 2 days ago Had [...] advise. Thank you Pharmacy and allergies verified. ING AGENT * Telephone Encounter - Damaris Fontaine - 10/16/2020 8:03 AM CST Felisa ( not on PRD) Call patient was in ER yesterday asking for an antibiotic for patient Transfer to triage line ING AGENT documented in this encounter Plan of Treatment Not on file documented as of this encounter Visit Diagnoses Not on filedocumented in this encounter Additional Health Concerns Infection Onset Date Last Indicated Resolved Time COVID - 19 08/02/2021 08/02/2021 08/22/2021 12:1 6 AM BOOKING AGENT COVID - 19 11/03/2021 11/03/2021 11/23/2021 12:1 6 AM BOOKING AGENT Assessment Noted Time PHQ-9 Depression Total Score: 0 08/28/20 20 11:08 AM BOOKING AGENT documented as of this encounter Care Teams Cvir Tech Relationship Specialty Start Date End Date Andrew Dawson MD #[address] [address] PCP - General Family Medicine 11/08/16 01/29/21 Vinicio Dinero MD [address] [place] [address] PCP - General Internal Medicine 01/30/21 07/26/21 Marisa Carcamo, PAC [address] [place] [address] PCP - General Physician Enrober Tender 07/27/21 12/25/24 Marisa Carcamo, PAC [address] [place] [address] Physician Enrober Tender Physician Enrober Tender 01/30/21 documented as of this encounter
--- OUTSIDE RECORDS SUMMARY | 2024-12-29 22:16 | XMS_ITS | Encounter Summary ---
Author Organization [facility] Address [address] [place] [address] Phone Care Team Providers Care Electronic Technician Name Role Phone Andrew Dawson MD Primary Care Provider [phone] Vinicio Dinero MD Primary Care Provider [phone] Marisa Carcamo PAC Unavailable Marisa Carcamo PAC Primary Care Pro vider Reason for Visit * Reason Comments Medication Refill Encounter Details Date Type Department Care Team (Late st Contact Info) Description 10/20/2020 Refill [facility] [address] [place] [address] Andrew Dawson MD [address] [address] Medication Refill Social History Tobacco Use Types [...] COVID-19? No / Unsure 10/17/2020 2:19 PM UTILITIES ESTIMATOR AND DRAFTER documented as of this encounter Miscellaneous Notes [...] Recent Outpatient Visits 1 month ago Anxiety [facility] APN, CRUDE OIL TREATER 5 months ago Chronic atrial fibrillation (HCC) [facility] - Andrew Lopez MD 6 months ago Chronic atrial fibrillation (HCC) [facility] [place] APN, CRUDE OIL TREATER 6 months ago Tachycardia [facility] [place] APN, CRUDE OIL TREATER 7 months ago Chronic bilateral low back pain without sciatica [facility] - Andrew Lopez MD Upcoming Appointments COMMERCIAL ANNOUNCER - Recent and Past Visits Recent Visits Date Type Provider Dept 08/28/20 Office Visit [place] APN, CRUDE OIL TREATER [facility] 05/12/20 Office Visit Andrew Dawson MD [facility] 04/17/20 Office Visit Sera [place] APN, JOY [facility] 04/15/20 Office Visit S[place] APN, CRUDE OIL TREATER [facility] 03/12/20 Office Visit Andrew Dawson MD [facility] 01/08/20 Telemedicine Andrew Dawson MD [facility] 12/31/19 Telemedicine Andrew Dawson MD [facility] 10/09/19 Office Visit S[place] APN, JOY [facility] 09/02/19 Office Visit Andrew Dawson MD [facility] 08/26/19 Office Visit Sánchez Jenkins APN, CRUDE OIL TREATER [facility] Showing recent visits within past 460 days with a meds authorizing provider and meeting all other requirements Future Appointments No visits were found meeting these conditions. Showing future appointments within next 90 days with a meds authorizing provider and meeting all other requirements ITIES ESTIMATOR AND DRAFTER * Telephone Encounter - Deb Valente - [...] a two week supply at a time ITIES ESTIMATOR AND DRAFTER documented in this encounter Plan of Treatment Not on file documented as of this encounter Visit Diagnoses Diagnosis Anxiety Anxiety state, unspecified documented in this encounter Additional Health Concerns Infection Onset Date Last Indicated Resolved Time COVID - 19 08/02/2021 08/02/2021 08/22/2021 12:1 6 AM UTILITIES ESTIMATOR AND DRAFTER COVID - 19 11/03/2021 11/03/2021 11/23/2021 12:1 6 AM UTILITIES ESTIMATOR AND DRAFTER Assessment Noted Time PHQ-9 Depression Total Score: 0 08/28/20 20 11:08 AM UTILITIES ESTIMATOR AND DRAFTER documented as of this encounter Care Teams Electronic Technician Relationship Specialty Start Date End Date Andrew Dawson MD #[address] [address] PCP - General Family Medicine 11/08/16 01/29/21 Vinicio Dinero MD [address] [place] [address] PCP - General Internal Medicine 01/30/21 07/26/21 Marisa Carcamo, PAC [address] [place] [address] PCP - General Physician Ground Crew Lines Person 07/27/21 12/25/24 Marisa Carcamo, PAC [address] [place] [address] Physician Ground Crew Lines Person Physician Ground Crew Lines Person 01/30/21 documented as of this encounter
--- OUTSIDE RECORDS SUMMARY | 2024-12-29 22:16 | XMS_ITS | Encounter Summary ---
Author Organization [facility] Address [address] [place] [address] Phone Care Team Providers Care Service Clerk Name Role Phone Andrew Dawson MD Primary Care Provider [phone] Vinicio Dinero MD Primary Care Provider [phone] Marisa Carcamo PAC Unavailable Marisa Carcamo PAC Primary Care Pro vider Reason for Visit * Reason Comments Medication Refill Encounter Details Date Type Department Care Team (Late st Contact Info) Description 10/19/2020 Refill [facility] [address] [place] [address] Andrew Dawson MD [address] [address] Medication Refill Social History Tobacco Use Types [...] COVID-19? No / Unsure 10/17/2020 2:19 PM BOX LINING MACHINE OPERATOR documented as of this encounter [...] Recent Outpatient Visits 1 month ago Anxiety [facility] - [facility] [place] APN, CNP 5 months ago Chronic atrial fibrillation (HCC) [facility] - Andrew Lopez MD 6 months ago Chronic atrial fibrillation (HCC) [facility] [place] APN, CNP 6 months ago Tachycardia [facility] [place] [place] APN, CNP 7 months ago Chronic bilateral low back pain without sciatica [facility] Andrew Lopez MD Upcoming Appointments BAGGAGE AGENT SUPERVISOR - Recent and Past Visits Recent Visits Date Type Provider Dept 08/28/20 Office Visit [place] APN, CNP [facility] 05/12/20 Office Visit Andrew Dawson MD [facility] 04/17/20 Office Visit S[place] APN, CNP [facility] 04/15/20 Office Visit S[place] APN, CNP [facility] 03/12/20 Office Visit Andrew Dawson MD [facility] 01/08/20 Telemedicine Andrew Dawson MD [facility] 12/31/19 Telemedicine [facility] MD [facility] 10/09/19 Office Visit Sera Spring APN, RANGELAND MANAGEMENT SPECIALIST [facility] 09/02/19 Office Visit Andrew Dawson MD [facility] 08/26/19 Office Visit Sánchez Jenkins APN, RANGELAND MANAGEMENT SPECIALIST [facility] Showing recent visits within past 460 days with a meds authorizing provider and meeting all other requirements Future Appointments No visits were found meeting these conditions. Showing future appointments within next 90 days with a meds authorizing provider and meeting all other requirements LINING MACHINE OPERATOR * Telephone Encounter - Ruth Almodovar RN - 10/19/2020 2:44 PM CST Patient calling in regarding refill request for xanax Notified that refill request was received today from the pharmacy and is waiting for providers response To provider for direction LINING MACHINE OPERATOR documented in this encounter Plan of Treatment Not on file documented as of this encounter Visit Diagnoses Diagnosis Anxiety Anxiety state, unspecified documented in this encounter Additional Health Concerns Infection Onset Date Last Indicated Resolved Time COVID - 19 08/02/2021 08/02/2021 08/22/2021 12:1 6 AM BOX LINING MACHINE OPERATOR COVID - 19 11/03/2021 11/03/2021 11/23/2021 12:1 6 AM BOX LINING MACHINE OPERATOR Assessment Noted Time PHQ-9 Depression Total Score: 0 08/28/20 20 11:08 AM BOX LINING MACHINE OPERATOR documented as of this encounter Care Teams Service Clerk Relationship Specialty Start Date End Date Andrew Dawson MD #[address] [address] PCP - General Family Medicine 11/08/16 01/29/21 Vinicio Dinero MD [address] [place] [address] PCP - General Internal Medicine 01/30/21 07/26/21 Marisa Carcamo [facility] [address] [place] [address] PCP - General Physician Residential Subcontractor 07/27/21 12/25/24 Marisa Carcamo, PAC [address] [place] [address] Physician Residential Subcontractor Physician Residential Subcontractor 01/30/21 documented as of this encounter
--- OUTSIDE RECORDS SUMMARY | 2024-12-29 22:16 | XMS_ITS | Encounter Summary ---
Author Organization [facility] Address [address] [place] [address] Phone Care Team Providers Care Aerospace Quality Engineer Name Role Phone Andrew Dawson MD Primary Care Provider [phone] Vinicio Dinero MD Primary Care Provider [phone] Marisa Carcamo PAC Unavailable Marisa Carcamo PAC Primary Care Pro vider Reason for Visit * Reason Onset Date Comments Medication Refill Medication Refill 11/13/2020 Encounter Details Date Type Department Care Team (Late st Contact Info) Description 11/13/2020 Refill [facility] [address] [place] [address] Andrew Dawson MD [address] [address] Medication Refill; Medication Refill Social [...] COVID-19? No / Unsure 10/17/2020 2:19 PM LOSS PREVENTION INVESTIGATOR documented as of this encounter Plan of Treatment Not on file documented as of this encounter Visit Diagnoses Diagnosis Anxiety Anxiety state, unspecified documented in this encounter Additional Health Concerns Infection Onset Date Last Indicated Resolved Time COVID - 19 08/02/2021 08/02/2021 08/22/2021 12:1 6 AM LOSS PREVENTION INVESTIGATOR COVID - 19 11/03/2021 11/03/2021 11/23/2021 12:1 6 AM LOSS PREVENTION INVESTIGATOR Assessment Noted Time PHQ-9 Depression Total Score: 0 08/28/20 11:08 AM LOSS PREVENTION INVESTIGATOR documented as of this encounter Care Teams Aerospace Quality Engineer Relationship Specialty Start Date End Date Andrew Dawson MD #[address] [address] PCP - General Family Medicine 11/08/16 01/29/21 Vinicio Dinero MD [address] [place] [address] PCP - General Internal Medicine 01/30/21 07/26/21 Marisa Carcamo, [facility] [address] [place] [address] PCP - General Physician Escapement Maker 07/27/21 12/25/24 Marisa Carcamo, [facility] [address] [place] [address] Physician Escapement Maker Physician Escapement Maker 01/30/21 documented as of this encounter
--- OUTSIDE RECORDS SUMMARY | 2024-12-29 22:16 | XMS_ITS | Encounter Summary ---
Author Organization [facility] Address [address] [place] [address] Phone Care Team Providers Care Extension Service Advisor Name Role Phone Chiquis Carcamoney Jerrica PAC Primary Care Pro vider Reason for Visit * Reason Comments Medication Refill Encounter Details Date Type Department Care Team (Late st Contact Info) Description 05/23/2022 Refill [facility] [address] [place] [address] Andrew Dawson MD #[address] [address] Medication Refill Social History Tobacco Use Types [...] Office Visit Marisa Carcamo PAC [facility] 11/08/21 Office Visit Marisa Carcamo PAC [facility] 08/02/21 Office Visit Marisa Carcamo PAC [facility] 06/04/21 Office Visit Marisa Carcamo PAC [facility] Showing recent visits within past 365 days [...] Depression Total Score: 11 021 3:00 PM SALT PLANT OPERATOR documented as of this encounter Care Teams Extension Service Advisor Relationship Specialty Start Date End Date Marisa Carcamo PAC [address] [place] [address] PCP - General Physician Electrician 07/27/21 12/25/24 documented as of this encounter
--- OUTSIDE RECORDS SUMMARY | 2024-12-29 22:16 | XMS_ITS | Encounter Summary ---
Author Organization [facility] Address [address] [place] [address] Phone Care Team Providers Care Bond Writer Name Role Phone Marisa Carcamo PAC Primary Care Pro vider Reason for Visit * Reason Comments Medication Refill Encounter Details Date Type Department Care Team (Late st Contact Info) Description 11/30/2021 Refill [facility] - [place] [address] [place] [address] Marisa Carcamo, [facility] [address] [facility] [place] [address] Medication Refill Social History Tobacco [...] COVID-19? No / Unsure 11/15/2021 11:09 AM MONOGRAM AND LETTER PASTER documented as of this encounter Miscellaneous Notes [...] Office Visit Marisa Carcamo PAC [facility] 11/08/21 Office Visit Marisa Carcamo PAC [facility] 08/02/21 Office Visit Marisa Carcamo PAC [facility] 06/04/21 Office Visit Marisa Carcamo PAC [facility] Showing recent visits within past 182 days and meeting all other requirements Future Appointments Date Type Provider Dept 12/17/21 Appointment Marisa Carcamo PAC [facility] Showing future appointments within next 90 days and meeting all other requirements Passed - Has an encounter in the past 6 months with a depression, anxiety, adjustment disorder, OCD, or PTSD visit diagnosis GRAM AND LETTER PASTER documented in this encounter Plan of Treatment Not on file documented as of this encounter Visit Diagnoses Not on filedocumented in this encounter Additional Health Concerns Assessment Noted Time PHQ-9 Depression Total Score: 11 021 3:00 PM MONOGRAM AND LETTER PASTER documented as of this encounter Care Teams Bond Writer Relationship Specialty Start Date End Date Marisa Carcamo PAC [address] [place] [address] PCP - General Physician Gutter Mouth Cutter 07/27/21 12/25/24 documented as of this encounter
--- OUTSIDE RECORDS SUMMARY | 2024-12-29 22:16 | XMS_ITS | Encounter Summary ---
Author Organization [facility] Address [address] [place] [address] Phone Care Team Providers Care Health Practice Manager Name Role Phone Marisa Carcamo PAC Primary Care Pro vider Reason for Visit * Reason Comments Medication Refill Encounter Details Date Type Department Care Team (Late st Contact Info) Description 04/21/2022 Refill [facility] - [place] [address] [place] [address] Marisa Carcamo, [facility] [address] [place] [address] Medication Refill Social History Tobacco Use Types [...] Total Score: 11 08/02/2 021 3:00 PM FIRE SAFETY DIRECTOR documented as of this encounter Care Teams Health Practice Manager Relationship Specialty Start Date End Date Marisa Carcamo, [facility] [address] [place] [address] PCP - General Physician Enterprise Account Executive 07/27/21 12/25/24 documented as of this encounter
--- OUTSIDE RECORDS SUMMARY | 2024-12-29 22:16 | XMS_ITS | Encounter Summary ---
Author Organization [facility] Address [address] [place] [address] Phone Care Team Providers Care Food Mobile Driver Name Role Phone Marisa Carcamo PAC Primary Care Pro vider Reason for Visit * Reason Comments Medication Refill Encounter Details Date Type Department Care Team (Late st Contact Info) Description 09/23/2021 Refill [facility] - [place] [address] [place] [address] Marisa Carcamo, [facility] [address] [facility] [place] [address] Medication Refill Social History Tobacco [...] COVID-19? No / Unsure 08/31/2021 9:53 AM FACILITIES SPECIALIST documented as of this encounter Miscellaneous Notes * Telephone Encounter - Zahira Butt RN - 09/23/2021 12:48 PM FACILITIES SPECIALIST Requested Prescriptions Pending Prescriptions Disp Refills busPIRone [...] with Buspirone for at least 6 months LITIES SPECIALIST documented in this encounter Plan of Treatment Not on file documented as of this encounter Visit Diagnoses Diagnosis Anxiety Anxiety state, unspecified documented in this encounter Additional Health Concerns Infection Onset Date Last Indicated Resolved Time COVID - 19 11/03/2021 11/03/2021 11/23/2021 12:1 6 AM FACILITIES SPECIALIST Assessment Noted Time PHQ-9 Depression Total Score: 11 021 3:00 PM FACILITIES SPECIALIST documented as of this encounter Care Teams Food Mobile Driver Relationship Specialty Start Date End Date Marisa Carcamo PAC [address] [place] [address] PCP - General Physician Head Grease Maker 07/27/21 12/25/24 documented as of this encounter
--- OUTSIDE RECORDS SUMMARY | 2024-12-29 22:16 | XMS_ITS | Encounter Summary ---
Author Organization [facility] Address [address] [place] [address] Phone Care Team Providers Care Wind Turbine Technician Name Role Phone Marisa Carcamo PAC Primary Care Pro vider Reason for Visit * Reason Comments Medication Refill Encounter Details Date Type Department Care Team (Late st Contact Info) Description 05/23/2022 Refill [facility] - [place] [address] [place] [address] Marisa Carcamo, [facility] [address] [place] [address] Medication Refill Social History Tobacco [...] Depression Total Score: 11 021 3:00 PM PARK GUARD documented as of this encounter Care Teams Wind Turbine Technician Relationship Specialty Start Date End Date Marisa Carcamo PAC [address] [place] [address] PCP - General Physician Wheel Mill Operator 07/27/21 12/25/24 documented as of this encounter
--- OUTSIDE RECORDS SUMMARY | 2024-12-29 22:16 | XMS_ITS | Encounter Summary ---
Author Organization [facility] Address [address] [place] [address] Phone Care Team Providers Care Bunch Breaker Machine Operator Name Role Phone Marisa Carcamo Jerrica PAC Primary Care Pro vider Reason for Visit * Reason Comments Medication Refill Encounter Details Date Type Department Care Team (Late st Contact Info) Description 08/01/2021 Refill [facility] [address] [place], [place] [id number] Andrew Dawson MD [address] [id number] Medication Refill Social History Tobacco Use Types [...] COVID-19? No / Unsure 08/02/2021 3:06 PM PROOFER BLACK AND WHITE documented as of this encounter Miscellaneous Notes [...] Oyster Shell Calcium-Vit D) 500-125 MG-UNIT Tablet [[id number]] 8 Status: Active Ordering user: Andrew Dawson MD 12/31/20858 Authorized by: Andrew Dawson MD Frequency: Daily 12/31/20 - Until Discontinued Released by: Andrew Dawson MD 12/31/[address] [id number] Original Rx was discontinued on 12/23/[address] Dawson. The above medication is what patient should betaking per medication list. FER BLACK AND WHITE documented in this encounter Plan of Treatment Not on file documented as of this encounter Visit Diagnoses Not on filedocumented in this encounter Additional Health Concerns Infection Onset Date Last Indicated Resolved Time COVID - 19 08/02/2021 08/02/2021 08/22/2021 12:1 6 AM PROOFER BLACK AND WHITE COVID - 19 11/03/2021 11/03/2021 11/23/2021 12:1 6 AM PROOFER BLACK AND WHITE Assessment Noted Time PHQ-9 Depression Total Score: 0 06/04/20 12:00 PM CDT documented as of this encounter Care Teams Bunch Breaker Machine Operator Relationship Specialty Start Date End Date Marisa Carcamo PAC [address] [place] [address] PCP - General Physician Civil Cad Designer 07/27/21 12/25/24 documented as of this encounter
--- OUTSIDE RECORDS SUMMARY | 2024-12-29 22:16 | XMS_ITS | Encounter Summary ---
Author Organization [facility] Address [address] [place] [address] Phone Care Team Providers Care Computer Clerk Name Role Phone Andrew Dawson MD Primary Care Provider [phone] Vinicio Dinero MD Primary Care Provider [phone] Marisa Carcamo PAC Unavailable Marisa Carcamo PAC Primary Care Pro vider Reason for Visit * Reason Comments Medication Refill Encounter Details Date Type Department Care Team (Late st Contact Info) Description 09/14/2020 Refill [facility] [address] [place] [address] Andrew aDwson MD #[address] [address] Medication Refill Social History Tobacco Use Types [...] COVID-19? No / Unsure 08/28/2020 10:46 AM IMMUNOHEMATOLOGIST documented as of this encounter Miscellaneous Notes [...] Receipt confirmed by pharmacy (09/10/2020 ??8:42 AM IMMUNOHEMATOLOGIST) ALPRAZolam (XANAX) 0.5 MG Tablet [[id number]] 0842 NOHEMATOLOGIST documented in this encounter Plan of Treatment Not on file documented as of this encounter Visit Diagnoses Diagnosis Anxiety Anxiety state, unspecified documented in this encounter Additional Health Concerns Infection Onset Date Last Indicated Resolved Time COVID - 19 08/02/2021 08/02/2021 08/22/2021 12:1 6 AM IMMUNOHEMATOLOGIST COVID - 19 11/03/2021 11/03/2021 11/23/2021 12:1 6 AM IMMUNOHEMATOLOGIST Assessment Noted Time PHQ-9 Depression Total Score: 0 08/28/20 11:08 AM IMMUNOHEMATOLOGIST documented as of this encounter Care Teams Computer Clerk Relationship Specialty Start Date End Date Andrew Dawson MD #[address] [address] PCP - General Family Medicine 11/08/16 01/29/21 Vinicio Dinero MD [address] [facility] [address] PCP - General Internal Medicine 01/30/21 07/26/21 Marisa Carcamo, PAC [address] [place] [address] PCP - General Physician Air Crew Officer 07/27/21 12/25/24 Marisa Carcamo, PAC [address] [place] [address] Physician Air Crew Officer Physician Air Crew Officer 01/30/21 documented as of this encounter
--- OUTSIDE RECORDS SUMMARY | 2024-12-29 22:16 | XMS_ITS | Encounter Summary ---
Author Organization [facility] Address [address] [place] [address] Phone Care Team Providers Care Morning Show Newscast Producer Name Role Phone Andrew Dawson MD Primary Care Provider [phone] Vinicio Dinero MD Primary Care Provider [phone] Marisa Carcamo PAC Unavailable Marisa Carcamo PAC Primary Care Pro vider Reason for Visit * Reason Onset Date Comments Medication Management 09/17/2020 Encounter Details Date Type Department Care Team (Late st Contact Info) Description 09/17/2020 Telephone [facility] [address] [place] [address] Andrew Dawson MD #[address] [address] Medication Management Social History Tobacco [...] COVID-19? No / Unsure 08/28/2020 10:46 AM MEDICAL AFFAIRS MANAGER documented as of this encounter Miscellaneous Notes * Telephone Encounter - Andrew Dawson MD - 09/17/2020 11:44 AM CST no CAL AFFAIRS MANAGER * Telephone Encounter - Senia Hernandez RN - 09/17/2020 11:22 AM MEDICAL AFFAIRS MANAGER Pt is calling back - States he [...] that either he or his sister will last picker, but he did not go last week on to pick it up. States his friend just last night and is anxious. Dr. Dawson, would you be agreeable to sending in a few tabs for him? Next fill is due in one week, on 09/24. CAL AFFAIRS MANAGER * Telephone Encounter - Andrew Dawson MD - 09/17/2020 10:12 AM CST Not going to fill CAL AFFAIRS MANAGER * Telephone Encounter - Zahira Santiago RN - 09/17/2020 9:59 AM MEDICAL AFFAIRS MANAGER Received call from Cheri at [facility] pharmacy who states patient called them [...] provider to advise on how to proceed. CAL AFFAIRS MANAGER documented in this encounter Plan of Treatment Not on file documented as of this encounter Visit Diagnoses Not on filedocumented in this encounter Additional Health Concerns Infection Onset Date Last Indicated Resolved Time COVID - 19 08/02/2021 08/02/2021 08/22/2021 12:1 6 AM MEDICAL AFFAIRS MANAGER COVID - 19 11/03/2021 11/03/2021 11/23/2021 12:1 6 AM MEDICAL AFFAIRS MANAGER Assessment Noted Time PHQ-9 Depression Total Score: 0 08/28/20 11:08 AM MEDICAL AFFAIRS MANAGER documented as of this encounter Care Teams Morning Show Newscast Producer Relationship Specialty Start Date End Date Andrew Dawson MD #[address] [address] PCP - General Family Medicine 11/08/16 01/29/21 Vinicio Dinero MD [address] [place] [address] PCP - General Internal Medicine 01/30/21 07/26/21 Marisa Carcamo, [facility] [address] [place] [address] PCP - General Physician Vp Training 07/27/21 12/25/24 Marisa Carcamo PAC [address] [place] [address] Physician Vp Training Physician Vp Training 01/30/21 documented as of this encounter
--- OUTSIDE RECORDS SUMMARY | 2024-12-29 22:16 | XMS_ITS | Encounter Summary ---
Author Organization [facility] Address [address] [place] [address] Phone Care Team Providers Care Frozen Food Selector Name Role Phone Andrew Dawson MD Primary Care Provider Vinicio Dinero MD Primary Care Provider [phone] Marisa Carcamo PAC Unavailable Marisa Carcamo PAC Primary Care Pro vider Reason for Visit * Reason Comments Medication Refill Encounter Details Date Type Department Care Team (Late st Contact Info) Description 08/26/2020 Refill [facility] #2 [place] [address] Andrew Dawson MD [address] [address] Medication Refill Social History Tobacco Use Types [...] COVID-19? No / Unsure 08/28/2020 10:46 AM HULLER OPERATOR documented as of this encounter Miscellaneous Notes * Telephone Encounter - Eloy Felder - 08/26/2020 3:09 PM CST Pt called and I advised why med was refused. Called sister per comments to schedule appoitment.. Set up appt for 08-31-20 with PERIPHERAL EDP EQUIPMENT OPERATOR 11:15 ER OPERATOR ER OPERATOR ER OPERATOR * Telephone Encounter - Keerthi Moore RN [...] 3 months ago Chronic atrial fibrillation (HCC) [facility] Family [facility] - Andrew Lopez MD 4 months ago Chronic atrial fibrillation (HCC) [facility] - Sera William APN, HR CLERK 4 months ago Tachycardia [facility] - Sera William APN, HR CLERK 5 months ago Chronic bilateral low back pain without sciatica [facility] - Andrew Lopez MD 7 months ago Liver lesion [facility] Andrew Lopez MD Upcoming Appointments NUISANCE ANIMAL DAMAGE CONTROL AGENT - Recent and Past Visits Recent Visits Date Type Provider Dept 05/12/20 Office Visit Andrew Dawson MD [facility] 04/17/20 Office Visit Sera Spring APN, HR CLERK [facility] 04/15/20 Office Visit Sera Spring APN, HR CLERK [facility] 03/12/20 Office Visit Andrew Dawson MD [facility] 01/08/20 Telemedicine Andrew Dawson MD [facility] 12/31/19 Telemedicine Andrew Dawson MD [facility] 10/09/19 Office Visit Sera Spring APN, HR CLERK [facility] 09/02/19 Office Visit Andrew Dawson MD [facility] 08/26/19 Office Visit Sánchez Jenkins APN, HR [facility]19 [facility] Showing recent visits within past 460 days with a meds authorizing provider and meeting all other requirements Future Appointments No visits were found meeting these conditions. Showing future appointments within next 90 days with a meds authorizing provider and meeting all other requirements ER OPERATOR documented in this encounter Plan of Treatment Not on file documented as of this encounter Visit Diagnoses Not on filedocumented in this encounter Additional Health Concerns Infection Onset Date Last Indicated Resolved Time COVID - 19 08/02/2021 08/02/2021 08/22/2021 12:1 6 AM HULLER OPERATOR COVID - 19 11/03/2021 11/03/2021 11/23/2021 12:1 6 AM HULLER OPERATOR Assessment Noted Time PHQ-9 Depression Total Score: 0 03/12/20 12:31 PM CDT documented as of this encounter Care Teams Frozen Food Selector Relationship Specialty Start Date End Date Andrew Dawson MD [address] [address] PCP - General Family Medicine 11/08/16 01/29/21 Vinicio Dinero MD [address] [place] [address] PCP - General Internal Medicine 01/30/21 07/26/21 Marisa Carcamo, PAC [address] [place] [address] PCP - General Physician Correctional Casework Specialist 07/27/21 12/25/24 Marisa Carcamo, PAC [address] [place] [address] Physician Correctional Casework Specialist Physician Correctional Casework Specialist 01/30/21 documented as of this encounter
--- OUTSIDE RECORDS SUMMARY | 2024-12-29 22:16 | XMS_ITS | Encounter Summary ---
Author Organization [facility] Address [address] [place] [address] Phone Care Team Providers Care Plan Examiner Name Role Phone Andrew Dawson MD Primary Care Provider [phone] Vinicio Dinero MD Primary Care Provider [phone] Marisa Carcamo PAC Unavailable Marisa Carcamo PAC Primary Care Pro vider Reason for Visit * Reason Comments Medication Refill Encounter Details Date Type Department Care Team (Late st Contact Info) Description 09/09/2020 Refill [facility] #2 [place] [id number] Sera Spring APRN, 8TH GRADE TEACHER #[address] [address] Medication Refill Social History Tobacco [...] COVID-19? No / Unsure 08/28/2020 10:46 AM VENEER MATCHER documented as of this encounter Miscellaneous Notes * Telephone Encounter - Andrew Dawson MD - 09/10/2020 8:42 AM CST Prescription pending signature ER MATCHER * Telephone Encounter - Keerthi Moore RN [...] Recent Outpatient Visits 1 week ago Anxiety [facility] - Sera William APN, 8TH GRADE TEACHER 4 months ago Chronic atrial fibrillation (HCC) [facility] - Andrew Lopez MD 4 months ago Chronic atrial fibrillation (HCC) [facility] - Sera William APN, 8TH GRADE TEACHER 4 months ago Tachycardia [facility] - Sera William APN, 8TH GRADE TEACHER 6 months ago Chronic bilateral low back pain without sciatica [facility] - Andrew Lopez MD Upcoming Appointments ACETYLENE CUTTER - Recent and Past Visits Recent Visits Date Type Provider Dept 08/28/20 Office Visit Sera Spring APN, CNP [facility] 05/12/20 Office Visit Andrew Dawson MD [facility] 04/17/20 Office Visit Sera Spring APN, CNP [facility] 04/15/20 Office Visit Sera Spring APN, 8TH GRADE TEACHER [facility] [place] 03/12/20 [facility] 01/08/20 Telemedicine [facility] 12/31/19 Telemedicine [facility] 10/09/19 Office Visit Sera Spring APN, 8TH GRADE TEACHER [facility] Office Visit Andrew Dawson MD [facility] 08/26/19 Office Visit Sánchez Jenkins APN, 8TH GRADE TEACHER [facility] Showing recent visits within past 460 days with a meds authorizing provider and meeting all other requirements Future Appointments No visits were found meeting these conditions. Showing future appointments within next 90 days with a meds authorizing provider and meeting all other requirements ER MATCHER documented in this encounter Plan of Treatment Not on file documented as of this encounter Visit Diagnoses Diagnosis Anxiety Anxiety state, unspecified documented in this encounter Additional Health Concerns Infection Onset Date Last Indicated Resolved Time COVID - 19 08/02/2021 08/02/2021 08/22/2021 12:1 6 AM VENEER MATCHER COVID - 19 11/03/2021 11/03/2021 11/23/2021 12:1 6 AM VENEER MATCHER Assessment Noted Time PHQ-9 Depression Total Score: 0 08/28/20 11:08 AM VENEER MATCHER documented as of this encounter Care Teams Plan Examiner Relationship Specialty Start Date End Date Andrew Dawson MD #[address] [address] PCP - General Family Medicine 11/08/16 01/29/21 Vinicio Dinero MD [address] [place] [address] PCP - General Internal Medicine 01/30/21 07/26/21 Marisa Carcamo [facility] [address] [place] [address] PCP - General Physician Corporate Statistical Financial Analyst 07/27/21 12/25/24 Marisa Carcamo, FOREST [address] [place] [address] Physician Corporate Statistical Financial Analyst Physician Corporate Statistical Financial Analyst 01/30/21 documented as of this encounter
--- OUTSIDE RECORDS SUMMARY | 2024-12-29 22:16 | XMS_ITS | Encounter Summary ---
Author Organization [facility] Address [address] [place] [address] Phone Care Team Providers Care Dental Aide Name Role Phone Andrew Dawson MD Primary Care Provider Vinicio Dinero MD Primary Care Provider [phone] Marisa Carcamo PAC Unavailable Marisa Carcamo PAC Primary Care Pro vider Reason for Visit * Reason Comments Medication Refill Encounter Details Date Type Department Care Team (Late st Contact Info) Description 10/03/2020 Refill [facility] [address] [place] [address] Andrew Dawson MD #[address] [address] Medication Refill Social History Tobacco Use Types [...] AM CST Prescription approved. Please call in NICAL SUPPORT REPRESENTATIVE * Telephone Encounter - Gabby Coto RN [...] Recent Outpatient Visits 1 month ago Anxiety [facility] - Sera William APN, MINESWEEPING OFFICER 4 months ago Chronic atrial fibrillation (HCC) [facility] - Andrew Lopez MD 5 months ago Chronic atrial fibrillation (HCC) [facility] - Sera William APN, MINESWEEPING OFFICER 5 months ago Tachycardia [facility] - Sera William CONTROL CABINET ASSEMBLER, MINESWEEPING OFFICER 6 months ago Chronic bilateral low back pain without sciatica [facility] Andrew Lopez MD Upcoming Appointments RISK CONTROL CONSULTANT - Recent and Past Visits Recent Visits Date Type Provider Dept 08/28/20 Office Visit Sera Spring APN, MINESWEEPING OFFICER [facility] 05/12/20 Office Visit Andrew Dawson MD [facility] 04/17/20 Office Visit Sera Spring APN, CNP [facility] 04/15/20 Office Visit Sera Spring APN, MINESWEEPING OFFICER [facility] 03/12/20 Office Visit Andrew Dawson MD [facility] 01/08/20 Telemedicine Andrew Dawson MD [facility] 12/31/19 Telemedicine Andrew Dawson MD [facility] 10/09/19 Office Visit Sera Spring APN, MINESWEEPING OFFICER [facility] 09/02/19 Office Visit Andrew Dawson MD [facility] 08/26/19 Office Visit Sánchez Jenkins APN, MINESWEEPING OFFICER [facility] Showing recent visits within past 460 days with a meds authorizing provider and meeting all other requirements Future Appointments No visits were found meeting these conditions. Showing future appointments within next 90 days with a meds authorizing provider and meeting all other requirements NICAL SUPPORT REPRESENTATIVE documented in this encounter Plan of Treatment Not on file documented as of this encounter Visit Diagnoses Not on filedocumented in this encounter Additional Health Concerns Infection Onset Date Last Indicated Resolved Time COVID - 08/02/2021 08/02/2021 08/22/2021 12:1 6 AM TECHNICAL SUPPORT REPRESENTATIVE COVID - 19 11/03/2021 11/03/2021 11/23/2021 12:1 6 AM TECHNICAL SUPPORT REPRESENTATIVE Assessment Noted Time PHQ-9 Depression Total Score: 0 08/28/20 11:08 AM TECHNICAL SUPPORT REPRESENTATIVE documented as of this encounter Care Teams Dental Aide Relationship Specialty Start Date End Date Andrew Dawson MD #[address] [address] PCP - General Family Medicine 11/08/16 01/29/21 Vinicio Dinero MD [address] [place] [address] PCP - General Internal Medicine 01/30/21 07/26/21 Marisa Carcamo, FOREST [address] [place] [address] PCP - General Physician Middle School Science Teacher 07/27/21 12/25/24 Marisa Carcamo, FOREST [address] [place] [address] Physician Middle School Science Teacher Physician Middle School Science Teacher 01/30/21 documented as of this encounter
--- OUTSIDE RECORDS SUMMARY | 2024-12-29 22:16 | XMS_ITS | Encounter Summary ---
Author Organization [facility] Address [address] [place] [address] Phone Care Team Providers Care Dynamicist Name Role Phone Andrew Dawson MD Primary Care Provider Vinicio Dinero MD Primary Care Provider [phone] Marisa Carcamo PAC Unavailable Marisa Carcamo PAC Primary Care Pro vider Reason for Visit * Reason Comments Medication Refill Encounter Details Date Type Department Care Team (Late st Contact Info) Description 07/29/2020 Refill [facility] #2 [place] [address] Andrew Dawson MD #[address] [address] Medication Refill Social History Tobacco Use Types [...] AM CST Prescription approved. Please call in ICE DESK SPECIALIST * Telephone Encounter - Kari Rose RN [...] 2 months ago Chronic atrial fibrillation (HCC) [facility] Medical [facility] Family [facility] - Andrew Lopez MD 3 months ago Chronic atrial fibrillation (HCC) [facility] Medical [facility] Family [facility] - Sera William APN, CNP 3 months ago Tachycardia [facility] - Sera William APN, MOLTEN IRON POURER 4 months ago Chronic bilateral low back pain without sciatica [facility] - Andrew Lopez MD 6 months ago Liver lesion [facility] - Andrew Lopez MD Upcoming Appointments Future Appointments In [address] MRI, [facility] SUPERVISOR COFFEE - Recent and Past Visits Recent Visits Date Type Provider Dept 05/12/20 Office Visit Andrew Dawson MD [facility] 04/17/20 Office Visit Sera Spring APN, CNP [facility] 04/15/20 Office Visit Sera Spring APN, CNP [facility] 03/12/20 Office Visit Andrew Dawson MD [facility] 01/08/20 Telemedicine Andrew Dawson MD [facility] 12/31/19 Telemedicine Andrew Dawson MD [facility] 10/09/19 Office Visit Sera Spring APN, MOLTEN IRON POURER [facility] Visit [facility] MD [facility] 08/26/19 Office Visit Sánchez Jenkins APN, MOLTEN IRON POURER [facility] 08/20/19 Office Visit Andrew Dawson MD [facility] Showing recent visits within past 460 days with a meds authorizing provider and meeting all other requirements Future Appointments No visits were found meeting these conditions. Showing future appointments within next 90 days with a meds authorizing provider and meeting all other requirements ICE DESK SPECIALIST documented in this encounter Plan of Treatment Not on file documented as of this encounter Visit Diagnoses Not on filedocumented in this encounter Additional Health Concerns Infection Onset Date Last Indicated Resolved Time COVID - 19 08/02/2021 08/02/2021 08/22/2021 12:1 6 AM SERVICE DESK SPECIALIST COVID - 19 11/03/2021 11/03/2021 11/23/2021 12:1 6 AM SERVICE DESK SPECIALIST Assessment Noted Time PHQ-9 Depression Total Score: 0 03/12/20 12:31 PM CDT documented as of this encounter Care Teams Dynamicist Relationship Specialty Start Date End Date Andrew Dawson MD #[address] [address] PCP - General Family Medicine 11/08/16 01/29/21 Vinicio Dinero MD [address] [place] [address] PCP - General Internal Medicine 01/30/21 07/26/21 Marisa Carcamo PAC [address] [place] [address] PCP - General Physician Filter Tip Inspector 07/27/21 12/25/24 Marisa Carcamo, [facility] [address] [place] [address] Physician Filter Tip Inspector Physician Filter Tip Inspector 01/30/21 documented as of this encounter
--- OUTSIDE RECORDS SUMMARY | 2024-12-29 22:16 | XMS_ITS | Encounter Summary ---
Author Organization [facility] Address [address] [place] [address] Phone Care Team Providers Care Barrel Scraper Name Role Phone Marisa Carcamo PAC Primary Care Pro vider Reason for Visit * Reason Comments Medication Refill Encounter Details Date Type Department Care Team (Late st Contact Info) Description 07/27/2022 Refill [facility] - [place] [address] [place] [address] Marisa Carcamo, [facility] [address] [place] [address] Medication Refill Social History Tobacco [...] PHQ-9 Depression Total Score: 021 3:00 PM BAGGING SALVAGER documented as of this encounter Care Teams Barrel Scraper Relationship Specialty Start Date End Date Marisa Carcamo PAC [address] [place] [address] PCP - General Physician Medical Practice Administrator 07/27/21 12/25/24 documented as of this encounter
--- OUTSIDE RECORDS SUMMARY | 2024-12-29 22:16 | XMS_ITS | Encounter Summary ---
Author Organization [facility] Address [address] [place] [address] Phone Care Team Providers Care Commercial Sales Specialist Name Role Phone Andrew Dawson MD Primary Care Provider [phone] Vinicio Dinero MD Primary Care Provider [phone] Marisa Carcamo PAC Unavailable Marisa Carcamo PAC Primary Care Pro vider Reason for Visit * Reason Comments Medication Refill alprazolam Encounter Details Date Type Department Care Team (Late st Contact Info) Description 07/27/2020 Refill [facility] #2 [place] [address] Andrew Dawson MD #[address] [address] Medication Refill (alprazolam) Social History Tobacco Use [...] and approval. Thank you. GISEL Reynoso MA Ceramic Mold Designer - Medication Management INAL MAKEUP OPERATOR * Telephone Encounter - Kari Rose [...] 2 months ago Chronic atrial fibrillation (HCC) [facility] Family Medicine - Andrew Lopez MD 3 months ago Chronic atrial fibrillation (HCC) [facility] Family [facility] - Sera William APN AUTO MOTOR MECHANIC 3 months ago Tachycardia [facility] - Sera William APN AUTO MOTOR MECHANIC 4 months ago Chronic bilateral low back pain without sciatica [facility] - Andrew Lopez MD 6 months ago Liver lesion [facility] - Andrew Lopez MD Upcoming Appointments Future Appointments In [address] MRI, [facility] ELECTRICAL INSPECTOR - Recent and Past Visits Recent Visits Date Type Provider Dept 05/12/20 Office Visit Andrew Dawson MD [facility] 04/17/20 Office Visit Sera Spring APN, JOY [facility] 04/15/20 Office Visit Sera Spring APN, [facility] 03/12/20 Office Visit Andrew Dawson MD [facility] 01/08/20 [facility]medicine [facility] [place] 12/31[facility]19 Tele[facility]/09[facility]19 Office Visit Sera Spring APN, AUTO MOTOR MECHANIC [facility] 09/02/19 Office Visit [facility] 08/26/19 Office Visit Sánchez Jenkins APN, AUTO MOTOR MECHANIC [facility] 08/20/19 Office Visit Andrew Dawson MD [facility] Showing recent visits within past 460 days with a meds authorizing provider and meeting all other requirements Future Appointments No visits were found meeting these conditions. Showing future appointments within next 90 days with a meds authorizing provider and meeting all other requirements INAL MAKEUP OPERATOR documented in this encounter Plan of Treatment Not on file documented as of this encounter Visit Diagnoses Not on filedocumented in this encounter Additional Health Concerns Infection Onset Date Last Indicated Resolved Time COVID - 19 08/02/2021 08/02/2021 08/22/2021 12:1 6 AM TERMINAL MAKEUP OPERATOR COVID - 19 11/03/2021 11/03/2021 11/23/2021 12:1 6 AM TERMINAL MAKEUP OPERATOR Assessment Noted Time PHQ-9 Depression Total Score: 0 03/12/20 12:31 PM CDT documented as of this encounter Care Teams Commercial Sales Specialist Relationship Specialty Start Date End Date Andrew Dawson MD #[address] [address] PCP - General Family Medicine 11/08/16 01/29/21 Vinicio Dinero MD [address] [place] [address] PCP - General Internal Medicine 01/30/21 07/26/21 Marisa Carcamo PAC [address] [place] [address] PCP - General Physician Collection Technician 07/27/21 12/25/24 Marisa Carcamo, [facility] [address] [place] [address] Physician Collection Technician Physician Collection Technician 01/30/21 documented as of this encounter
--- OUTSIDE RECORDS SUMMARY | 2024-12-29 22:16 | XMS_ITS | Encounter Summary ---
Author Organization [facility] Address [address] [place] [address] Phone Care Team Providers Care Tube Roller Name Role Phone Marisa Carcamo PAC Primary Care Pro vider Reason for Visit * Reason Comments Medication Refill Encounter Details Date Type Department Care Team (Late st Contact Info) Description 10/26/2021 Refill [facility] - [place] [address] [place] [address] Marisa Carcamo, PAC [address] [place] [address] Medication Refill Social History Tobacco [...] Date Type Provider Dept 08/02/21 Office Visit [facility]as [facility] 06/[facility]/21 Office Visit Marisa Carcamo PAC [facility] [place] Showing recent visits within past 182 days and meeting all other requirements Future Appointments No visits were found meeting these conditions. Showing future appointments within next 90 days and meeting all other requirements Passed - Patient has established therapy with Buspirone for at least 6 months N UP WORKER * Telephone Encounter - Keerthi Moore RN [...] Dept 08/02/21 Office Visit Mar[facility]camo [facility] 06/04/21 Office Visit Marisa Carcamo PAC [facility] Showing recent visits within past 182 days and meeting all other requirements Future Appointments No visits were found meeting these conditions. Showing future appointments within next 90 days and meeting all other requirements Passed - Patient has established therapy with Buspirone for at least 6 months N UP WORKER documented in this encounter Plan of Treatment Scheduled Orders Name Type Priority Associated Diagnoses Orde r Schedule URINE DRUG SCREEN Lab Routine Anxiety Expected: 11/09/2021, Expires: 11/09/2022 documented as of this encounter Visit Diagnoses Diagnosis Anxiety- Primary Anxiety state, unspecified documented in this encounter Additional Health Concerns Infection Onset Date Last Indicated Resolved Time COVID - 19 11/03/2021 11/03/2021 11/23/2021 12:1 6 AM CLEAN UP WORKER Assessment Noted Time PHQ-9 Depression Total Score: 11 021 3:00 PM CLEAN UP WORKER documented as of this encounter Care Teams Tube Roller Relationship Specialty Start Date End Date Marisa Carcamo PAC [address] [place] [address] PCP - General Physician Manager Rn 07/27/21 12/25/24 documented as of this encounter
--- OUTSIDE RECORDS SUMMARY | 2024-12-29 22:17 | XMS_ITS | Encounter Summary ---
Author Organization [facility] Address [address] [place] [address] Phone Care Team Providers Care Allergy And Immunology Chief Name Role Phone Andrew Dawson MD Primary Care Provider [phone] Vinicio Dinero MD Primary Care Provider [phone] Marisa Carcamo PAC Unavailable Marisa Carcamo PAC Primary Care Pro vider Reason for Visit * Reason Comments Medication Refill Encounter Details Date Type Department Care Team (Late st Contact Info) Description 05/11/2020 Refill [facility] - Family Medicine [facility] [address] [place] [id number] Sera Spring APRN, LEAD GAME DESIGNER [address] [address] Medication Refill Social History Tobacco [...] 08/02/2021 08/02/2021 08/22/2021 12:1 6 AM MANAGER OF CREATIVE SERVICES COVID - 19 11/03/2021 11/03/2021 11/23/2021 12:1 6 AM MANAGER OF CREATIVE SERVICES Assessment Noted Time PHQ-9 Depression Total Score: 0 03/12/20 20 12:31 PM CDT documented as of this encounter Care Teams Allergy And Immunology Chief Relationship Specialty Start Date End Date Andrew Dawson MD [address] [address] PCP - General Family Medicine 11/08/16 01/29/21 Vinicio Dinero MD [address] [place] [address] PCP - General Internal Medicine 01/30/21 07/26/21 Marisa Carcamo PAC [address] [place] [address] PCP - General Physician Air Control/Anti Air Warfare Officer 07/27/21 12/25/24 Marisa Carcamo PAC [address] [place] [address] Physician Air Control/Anti Air Warfare Officer Physician Air Control/Anti Air Warfare Officer 01/30/21 documented as of this encounter
--- OUTSIDE RECORDS SUMMARY | 2024-12-29 22:17 | XMS_ITS | Encounter Summary ---
Author Organization [facility] Address [address] [place] [address] Phone Care Team Providers Care Contact Lens Lathe Operator Name Role Phone Andrew Dawson MD Primary Care Provider Vinicio Dinero MD Primary Care Provider [phone] Marisa Carcamo PAC Unavailable Marisa Carcamo PAC Primary Care Pro vider Reason for Visit * Reason Comments Medication Refill Encounter Details Date Type Department Care Team (Late st Contact Info) Description 02/28/2020 Refill [facility] - Family Medicine [facility] [address] [place] [address] Andrew Dawson MD [address] [address] Medication Refill Social History Tobacco Use Types [...] Outpatient Visits 1 month ago Liver lesion [facility] FAMILY MEDIC[facility] Andrew Dawson MD 1 month ago Muscular chest pain [facility] Andrew Dawson MD 4 months ago Chronic diastolic CHF (congestive heart failure) (HCC) [facility] Sera Spring APN, CNP 5 months ago Chronic bilateral low back pain without sciatica [facility] Andrew Dawson MD 6 months ago Chronic bilateral low back pain without sciatica [facility] FAMILY [facility]ICINE Sánchez Jenkins APN, JOY Upcoming Appointments Future Appointments In 1 month Althea Barton APN, JOY [facility], [facility] documented in this encounter Plan of Treatment Not on file documented as of this encounter Visit Diagnoses Not on filedocumented in this encounter Additional Health Concerns Infection Onset Date Last Indicated Resolved Time COVID - 19 08/02/2021 08/02/2021 08/22/2021 12:1 6 AM ASSEMBLER GARMENT FORM COVID - 19 11/03/2021 11/03/2021 11/23/2021 12:1 6 AM ASSEMBLER GARMENT FORM Assessment Noted Time PHQ-9 Depression Total Score: 0 10/09/19 20 8:42 AM ASSEMBLER GARMENT FORM documented as of this encounter Care Teams Contact Lens Lathe Operator Relationship Specialty Start Date End Date Anderw Dawson MD [address] [address] PCP - General Family Medicine 11/08/16 01/29/21 Vinicio Dinero MD [address] [place] [address] PCP - General Internal Medicine 01/30/21 07/26/21 Marisa Carcamo, PAC [address] [place] [address] PCP - General Physician Lockstitch Cup Setter 07/27/21 12/25/24 Marisa Carcamo, PAC [address] [place] [address] Physician Lockstitch Cup Setter Physician Lockstitch Cup Setter 01/30/21 documented as of this encounter
--- OUTSIDE RECORDS SUMMARY | 2024-12-29 22:17 | XMS_ITS | Encounter Summary ---
Author Organization [facility] Facility Care Team Providers Care Sales Attendant Name Role Phone Andrew Dawson MD Primary Care Provider [phone] Andrew Dawson MD Primary Care Provider [phone] Vinicio Dinero MD Primary Care Provider [phone] Mushtaq Blake MD Unavailable [phone] Miguel Ángel Sanchez MD Unavailable [phone] Monae Velasquez MD Primary Care Provider Emelyn Curtis MD Unavailable [phone] Heena Stephenson MD Unavailable [phone] Jeffery Bro MD Unavailable [phone] Anali Flores MD Unavailable [phone] Alessandro Dominguez NP Unavailable [phone] Luciano Rodriguez MD Unavailable Encounter Details Date Type Department Care Team (Latest Contact Info) Description 07/02/2016 Orders Only [facility] Provider, MD Sourav [address] [place] [address] Social History Tobacco Use Types Packs/Day Years Used Date Smoking Tobacco: Never Assessed Sex and Gender Information Value Date Recorded Sex Assigned at Not on file Legal 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 Gender Identity Not on file Sexual Orientation [...] as of this encounter Care Teams Sales Attendant Relationship Specialty Start Date End Date Andrew Dawson MD PCP - General Cardiology 12/10/18 10/23/19 Andrew Dawson MD [address] [address] PCP - General Family Medicine 10/24/19 10/19/21 Vinicio Dinero MD [address] [place] [address] PCP - General Internal Medicine 10/20/21 12/13/22 Monae Velasquez MD [address] [place] [address] PCP - General Family Practice 12/14/22 Mushtaq Blake MD [address] [place] [address] Medical Oncologist/Hematologi st Hematology and Oncology 09/09/22 Miguel Ángel Sanchez MD [address] [place] [address] Consulting Physician Radiation Oncology 12/09/22 Emelyn Curtis MD [address] DIV IM MEDICAL ONCOLOGY, [address] [place] [address] Consulting Physician Medical Oncology 04/17/23 Heena Stephenson MD [address] [place] [address] Fellow General Surgery 04/17/23 Jeffery Bro MD [address] [facility] [address] [place] [id number] Referring Physician Gastroenterology 05/16/23 Anali Flores MD [address] [facility] [address] [place] [address] Consulting Physician Cardiology 05/22/23 Alessandro Dominguez [employer] [address] [place] [address] Nurse Practitioner Pain Management 05/22/23 [place] [address] [place] [address] Consulting Physician Interventional Radiology 03/14/24 documented as of this encounter
--- OUTSIDE RECORDS SUMMARY | 2024-12-29 22:17 | XMS_ITS | Clinical Summary ---
Author Organization [facility] [address] Address [address] [place] [address] Care Team Providers Care Manifest Clerk Name Role Phone Mushtaq Blake MD Unavailable [phone] Miguel Ángel Sanchez MD Unavailable [phone] Monae Velasquez MD Primary Care Provider Emelyn Curtis MD Unavailable [phone] Heena Stephenson MD Unavailable [phone] Jeffery Bro MD Unavailable [phone] Anali Flores MD Unavailable Alessandro Dominguez NP Unavailable Luciano Rodriguez MD [...] 15 mg tabletIndications: Other persistent atrial fibrillation (HCC),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 90 tablet 3 08/02/20 23 Active aspirin 81 mg enteric coated tabletIndications: S/P TAVR (transcatheter aortic valve replacement) Take 1 tablet (81 mg total) by mouth daily 30 tablet 11 09/19/20 23 Active budesonide-glycopy r-formoterol (BREZTRI) 160-9-4.8 mcg/actuation inhalerIndications :Panlobular emphysema (HCC),Chronic respiratory failure with hypoxia, on home oxygen therapy ([facility]) Inhale 2 puffs 2 (two) times a [...] electrophysiology Assessment & Plan (08/10/2023 5:04 PM CHIEF OF STAFF): Patient has a degree of persistent bradycardia [...] mirtazapine Assessment & Plan (08/10/2023 5:04 PM CHIEF OF STAFF): Chronic. Continue the buspirone and mirtazapine. They [...] specialist Assessment & Plan (08/10/2023 5:03 PM CHIEF OF STAFF): Chronic. Per recent notes from Oncology and [...] constipation Assessment & Plan (08/10/2023 5:03 PM CHIEF OF STAFF): Chronic back pain syndrome. Saw pain management [...] management Assessment & Plan (08/10/2023 5:02 PM CHIEF OF STAFF): Chronic. Struggles with chronic pain. Was previously [...] management Assessment & Plan (08/10/2023 5:02 PM CHIEF OF STAFF): Status post prior transaortic valve replacement. Care per Cardiology Chronic diastolic CHF (congestive heart failure) 01/21/2021 Assessment & Plan (03/18/2024 5:22 PM CDT): Chronic. Compensated. Continue current medication. Monitor Assessment & Plan (12/11/2023 5:55 PM CDT): Chronic. Compensated. Continue current prescription medication Assessment & Plan (08/10/2023 5:02 PM CHIEF OF STAFF): Chronic. Compensated. Continue medication and care per Cardiology Persistent atrial fibrillation 01/20/2021 Assessment & Plan (03/18/2024 5:22 PM CDT): Chronic. Controlled. Continue beta-carlene and anticoagulation. Monitor Assessment & Plan (12/11/2023 5:55 PM CDT): Chronic. Stable. Continue current prescription medication. Continue anticoagulation for stroke prevention Assessment & Plan (08/10/2023 5:01 PM CHIEF OF STAFF): Chronic. Follows with cardiology. Has plans for upcoming cardiac ablation and placement of pacemaker. Continue medication and care per Cardiology Chronic anticoagulation 02/19/2020 Assessment & Plan (03/18/2024 5:21 PM CDT): Chronic. Bleeding precautions recommended. Assessment & Plan (12/11/2023 5:54 PM CDT): Chronic no signs of spontaneous bleeding. Continue anticoagulation for stroke prevention. Bleeding precautions recommended Assessment & Plan (08/10/2023 5:01 PM CHIEF OF STAFF): Chronic due to AFib. Discussed bleeding precautions. [...] counseling Assessment & Plan (08/10/2023 5:01 PM CHIEF OF STAFF): Chronic. Counseled to quit. Reviewed health risks Chronic bilateral low back pain without sciatica 01/18/2017 Assessment & Plan (08/10/2023 5:04 PM CHIEF OF STAFF): Chronic. Needs to follow up with pain management Panlobular emphysema 11/09/2016 Assessment & Plan (03/18/2024 5:24 PM CDT): Chronic. Breathing is stable. Continue breztri Assessment & Plan (12/11/2023 5:56 PM CDT): Chronic. Uncontrolled. Needs improvement. Noncompliant with inhalers. Restart BReztri. Stressed importance of smoking cessation. No signs of acute exacerbation Assessment & Plan (08/10/2023 5:00 PM CHIEF OF STAFF): Chronic. Uncontrolled. Noncompliant with inhalers. Stressed importance of taking breast true regularly. Previously did not like any of the powdered inhalers. Still smoking. 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 Tolerates atorvastatin. Continue. 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 They defer for today Assessment & Plan (12/11/2023 5:58 PM CDT): Chronic. Stable. Continue atorvastatin Assessment & Plan (08/10/2023 5:05 PM CHIEF OF STAFF): Chronic. Encouraged to continue his atorvastatin for [...] decompensation Assessment & Plan (08/10/2023 5:04 PM CHIEF OF STAFF): Patient has a chronic degree of mild [...] nightly Assessment & Plan (08/10/2023 5:01 PM CHIEF OF STAFF): Chronic, intermittent hypoxemia. Has supplemental oxygen at night. Has been followed by pulmonology but wishes to switch to closer yarder boss Leg edema 10/31/2022 11/16/2022 Discomfort of left [...] - 09/24/2018 Unsure if completed. Records from [facility] show skin rash, renal biopsy with IgA [...] C) BPH (benign prostatic hyperplasia) Depression Anxiety KAIBAB (hard of hearing) Cataract bilateral Cervical spinal [...] 0.6 oz pur e alcohol) [facility] Utilities Answer Date Recorded In the past 12 months has e electric, gas, oil, or water [employer] threatened to shut off services in your [...] often do you attend chur ch or muslim services? Never 08/31/2023 Do you belong to [...] place to sleep or slept in a custodial (including now)? No 08/31/2023 Personal Safety Answer Date Recorded Have you ever been in or are you currently in a harmful physical or emotional relationship or is someone making you feel afraid or unsafe? Denies 03/14/2024 Sex and Gender Information Value Date Recorded Sex Assigned at Not on file Legal Sex Male 2:00 AM CHIEF OF STAFF Gender Identity Not on file Sexual Orientation [...] history exists Medical Devices Implanted Type Area Executive Officer Special Warfare Team Device Identifier Shelf Expiration Date Model / Serial / Lot [employer] Tendril Sts 6fr 58cm Is-1 Connector Active Fixation Bipolar Soft 2087tc/58 - [id number] - [id number] Implanted:Qty: 1 on 08/11/2023 by Leon Rock MD at [facility] Lead Right: Ventricle [employer] 05/25/2026 2088TC/ 58 / [id number] / [employer] Tendril Sts 6fr 52cm Is-1 Connector Active Fixation Bipolar Soft 2087tc/52 - [id number] Implanted:Qty: 1 on 08/11/2023 by Leon Rock MD at [facility] Lead Right: Atrial Appendage [employer] 05/25/2026 2088TC/ 52 / / [employer] Quartet 4.7fr 86cm Quadripolar Is-4 Llll Connector 8 Curve Low 1456q/86 - [id number] - [id number] Implanted:Qty: 1 on 08/11/2023 by Leon Rock MD at [facility] Lead Right: Atrial Appendage [employer] 04/24/2026 1456Q/8 6 / [id number] / [employer] Pacemaker Dual Chamber Sales Architect P Mri Compatible Quadra Allure Mp [id number] - [id number] - [id number] Implanted:Qty: 1 on 08/11/2023 by Leon Rock MD at [facility] Pacemaker Left: Infraclavicular Anterior Chest Wall [employer] [id number] / [id number] / Ter[employer] Andreas Angio-Seal Vip 6fr Closere Device [id number] - [id number] Implanted:Qty: 1 on 06/08/2022 by Demetris Kay MD at [facility] [employer] Andreas 12/23/2022 [id number] / / [id number] [employer] Brooke 3 Commander Brown 26mm Transcatheter Ultra Low Profile [id number] - [id number] - [id number] Implanted:Qty: 1 on 10/18/2022 by Demetris Kay MD at [facility] [employer] 05/26/2025 [id number] / [id number] / Description:Heart valve 3T o r less [employer] Device Clsr Perclose Prostyle Sut-Mediatd Closure-Repair Sys 94754-88 - [id number] Implanted:Qty: 1 on 10/18/2022 by Demetris Kay MD at [facility] [employer] 07/25/2024 85697-8 [employer] Device Clsr Perclose Prostyle Sut-Mediatd Closure-Repair Sys 67435-31 - [id number] Implanted:Qty: 1 on 10/18/2022 by Demetris Kay MD at [facility] [employer] 07/25/2024 35344-3 [facility] Angio-Seal Vip 6fr Closere Device [id number] - [id number] Implanted:Qty: 1 on 10/18/[facility] 06/24/2023 [id number] / / [id number] Med[employer]onic Inc Coil Embolization Coated Detachable Helical Concerto 3mar1td Nylon Ch-8-0-[place] - [id number] Implanted:Qty: 1 on 12/07/2022 at [facility] Med[employer]onic Inc NV-3-4- HELIX / / Medtronic Inc Coil Embolization Coated Detachable Helical Concerto 0eej47gw Nylon Ve-0-74-[place] - [id number] Implanted:Qty: 1 on 12/07/2022 at [facility] Med[employer]onic Inc NV-5-20 -HELIX / / [employer] Device Clsr Perclose Prostyle Sut-Mediatd Closure-Repair Sys 94698-09 - [id number] Implanted:Qty: 1 on 12/07/2022 at [facility] [employer] [id number] 09/24/2024 41401-6 3 [id number] [employer] Andreas Coil Emolization Coated Detachable Embold 5sjp55ab [place] Tungsten [id number] 20 - [id number] Implanted:Qty: 1 on 12/07/2022 at [facility] [employer] Andreas [id number] 08/23/2025 [id number] 20 / / [id number] [employer] Andreas Coil Emolization Coated Detachable [place] Tungsten Embold 2rpa7rm [id number] 40 - [id number] Implanted:Qty: 1 on 12/07/2022 at [facility] [employer] Andreas [id number] 40 / / [employer] Andreas Coil Emolization Coated Detachable Embold 7lkn5ym [place] Tungsten [id number] 80 - [id number] Implanted:Qty: 1 on 12/07/2022 at [facility] [employer] Andreas [id number] 07/31/2025 [id number] 80 / / [id number] Ir Marker .5mm X 1cm Preld 21ga 15cm Long Ndl Visicoil - [id number] Implanted:Qty: 1 on 01/10/2023 at [facility] [employer] Andreas 11/22/2025 SN-050- 010-PL1 [id number] Ir Marker .5mm X 1cm Preld 21ga 15cm Long Ndl Visicoil - [id number] Implanted:Qty: 1 on 01/10/2023 at [facility] [employer] 04/24/2025 SN-050- 010-PL1 [id number] Ir Marker .5mm X 1cm Preld 21ga 15cm Long Ndl Visicoil - [id number] Implanted:Qty: 1 on 01/10/2023 at [facility] [employer] 11/22/2025 SN-050- 010-PL1 [id number] Ir Marker .5mm X 1cm Preld 21ga 15cm Long Ndl Visicoil - [id number] Implanted:Qty: 1 on 01/10/2023 at [facility] [employer] Andreas 11/22/2025 SN-050- 010-PL1 [id number] Elanc[employer] Inc Tyrx Absorbable Antibacterial Envelope-Large 3.3x2.9in [id number] - [id number] Implanted:Qty: 1 on 09/01/2023 by [facility] 05/18/2024 [id number] / / [id number] Ter[employer]o [employer] Andreas Angio-Seal Vip 6fr Closere Device [id number] - [id number] Implanted:Qty: 1 on 01/09/2024 at [facility] [employer] Medical Andreas 08/02/2024 [id number] / / [id number] [employer] Andreas Coil Emolization Coated Detachable Embold 6nmk90tg [place] Tungsten [id number] 50 - [id number] Implanted:Qty: 1 on 01/09/2024 at [facility] [employer] Andreas [id number] 08/15/2026 [id number] 50 / / [id number] [employer] Andreas Coil Emolization Coated Detachable Embold 1krl84ae [place] Tungsten [id number] 00 - [id number] Implanted:Qty: 1 on 01/09/2024 at [facility] [employer] Andreas [id number] 09/07/2026 [id number] 00 / / [id number] [employer] Andreas Coil Emolization Coated Detachable [place] Tungsten Embold 6akp3fn [id number] 40 - [id number] Implanted:Qty: 1 on 01/09/2024 at [facility] [employer] Andreas [id number] 07/25/2026 [id number] 40 / / [id number] Ter[employer]o [employer] Andreas Angio-Seal Vip 6fr Closere Device [id number] - [id number] Implanted:Qty: 1 on 03/14/2024 at [facility] [employer] 08/28/2024 [id number] / / [id number] Explanted Type Area Executive Officer Special Warfare Team Device Identifier Shelf Expiration Date Model / Serial / Lot [employer] [facility] Guy Flexi-Stent 7fr 9cm Small Pigtail Flexible .035in Stent 6575 - [id number] Implanted:Qty: 1 on 03/15/2023 by Rusty Pendleton MD at [facility] Explanted:Qty: 1 on 03/17/2023 by Ronald Cortez MD at [facility] Stent N/A: Pancreas Welcome [employer] Inc [id number] 09/25/2021 6575 / / [id number] [employer] Andreas Wallflex 10mm X 60mm Fully Covered Biliary [id number] - [id number] Implanted:Qty: 1 on 03/15/2023 by Rusty Pendleton MD at [facility] Explanted:Qty: 1 on 03/17/2023 by Ronald Cortez MD at [facility] Stent N/A: Bile Duct [employer] Andreas [id number] 12/05/2024 [id number] / / [id number] Procedures Procedure Name Priority Date/Time Associated Diagnosis [...] abdomen or pelvis abnormality. Stat report by [facility] Electronically signed by: Misbah Li [...] abdomen or pelvis abnormality. Stat report by [facility] Electronically signed by: Misbah Li M.D. Iqra Hedrick MD IM CT PROCEDURES Gladys l Result * (ABNORMAL) Hepatitis C (HCV) RNA PCR, quantitative (05/13/2016 9:11 AM CDT) HBsAb log IU/mL 2.0 () log IU 6 7:33 AM [facility] HISTORICAL RESULTS Comment: INTERPRETIVE INFORMATION: Hepatitis C [...] IU/mL 110 () IU/mL 05/18/2016 7:33 AM [facility] [employer] [facility] HCV RNA result Detected( H) Not Detected 05/18/2016 7:33 AM [facility] [employer] [facility] HISTORICAL RESULTS HCV RNA See Note () 05/18/2016 7:33 AM [facility] [employer] [facility] HISTORICAL RESULTS Comment: Access [facility] Enhanced Report using either link below: -Direct access: [email or web address] -Enter Username, Password: [email or web address] Username: [email or web address] Password: [email or web address] Performed by [employer], [address] [place] [address] [email or web address], [place] Quevedo MD, Lab. Director 05/13/2016 9:11 AM CDT 05/13/2016 9:22 AM CDT us Janis Vasquez NP LAB MICROBIOLOGY - GENERAL ORDERABLES Final Result [facility] [place]NOTE 2] HISTORICAL RESULTS * Occult blood, fecal non neoplasm screening (05/01/2016 10:10 AM CDT) Stool Occult Blood NEGATIVE NEGATIVE 05/01/2016 12:14 PM T [facility] [place][NOTE 2] HISTORICAL RESULTS 05/01/2016 10:1 0 AM CDT 05/01/2016 11:57 AM CDT Narrative [facility] HISTORICAL RESULTS - 05/01/2016 12:14 PM CDT Collected By JS us Anthony Zamudio MD LAB BODY FLUIDS AND ST OOLS ORDERABLES Final Result [facility] HISTORICAL RESULTS from Last 3 Months or Most Recently Relevant to Health Maintenance Insurance [id number] [place] [address] [address] [facility] MEDICARE Address: [id number] [place] [address] [facility] MEDICARE Address: [address] [address] [place] [address] [facility] MEDICARE ADVANTAGE Advance Directives For more information, please contact: [phone] * Full Code (Latest Code Status on [...] 11:04 AM 08/12/2023 2:30 PM Care Teams Manifest Clerk Relationship Specialty Start Date End Date Monae Velasquez MD [address] [place] [address] PCP - General Family Practice 12/14/22 Mushtaq Blake MD Medical Oncologist/Hematologi st Hematology and Oncology 09/09/22 Miguel Ángel Sanchez MD [address] [place] [address] Consulting Physician Radiation Oncology 12/09/22 Emelyn Curtis MD [address] DIV IM MEDICAL ONCOLOGY, [address] [place] [address] Consulting Physician Medical Oncology 04/17/23 Heena Stephenson MD [address] [place] [address] Fellow General Surgery 04/17/23 Jeffery Bro MD [address] [place] [id number] Referring Physician Gastroenterology 05/16/23 Anali Flores MD [address] [address] Consulting Physician Cardiology 05/22/23 [place] [address] [place] [address] Nurse Practitioner Pain Management 05/22/23 [place] [address] [place] [address] Consulting Physician Interventional Radiology 03/14/24
--- OUTSIDE RECORDS SUMMARY | 2024-12-29 22:17 | XMS_ITS | Referral Summary ---
Author Organization [facility] [place] [address] Address [address] [place] [address] Care Team Providers Care Knockout Machine Operator Name Role Phone Mushtaq Blake MD Unavailable [phone] Miguel Ángel Sanchez MD Unavailable Monae Velasquez MD Primary Care Provider Emelyn Curtis MD Unavailable [phone] Heena Stephenson MD Unavailable [phone] Jeffery Bro MD Unavailable [phone] Anali Flores MD Unavailable [phone] Alessandro Dominguez NP Unavailable Luciano Rodriguez MD [...] Other persistent atrial fibrillation (HCC),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 90 tablet 3 08/02/20 23 Active aspirin 81 mg enteric coated tabletIndications: S/P TAVR (transcatheter aortic valve replacement) Take 1 tablet (81 mg total) by mouth daily 30 tablet 11 09/19/20 23 Active budesonide-glycopy r-formoterol (BREZTRI) 160-9-4.8 mcg/actuation inhalerIndications :Panlobular emphysema (HCC),Chronic respiratory failure with hypoxia, on home oxygen therapy ([facility]) Inhale 2 puffs 2 (two) times a [...] electrophysiology Assessment & Plan (08/10/2023 5:04 PM PAYROLL AUDITOR): Patient has a degree of persistent bradycardia [...] mirtazapine Assessment & Plan (08/10/2023 5:04 PM PAYROLL AUDITOR): Chronic. Continue the buspirone and mirtazapine. They [...] specialist Assessment & Plan (08/10/2023 5:03 PM PAYROLL AUDITOR): Chronic. Per recent notes from Oncology and [...] constipation Assessment & Plan (08/10/2023 5:03 PM PAYROLL AUDITOR): Chronic back pain syndrome. Saw pain management [...] management Assessment & Plan (08/10/2023 5:02 PM PAYROLL AUDITOR): Chronic. Struggles with chronic pain. Was previously [...] management Assessment & Plan (08/10/2023 5:02 PM PAYROLL AUDITOR): Status post prior transaortic valve replacement. Care per Cardiology Chronic diastolic CHF (congestive heart failure) 01/21/2021 Assessment & Plan (03/18/2024 5:22 PM CDT): Chronic. Compensated. Continue current medication. Monitor Assessment & Plan (12/11/2023 5:55 PM CDT): Chronic. Compensated. Continue current prescription medication Assessment & Plan (08/10/2023 5:02 PM PAYROLL AUDITOR): Chronic. Compensated. Continue medication and care per Cardiology Persistent atrial fibrillation 01/20/2021 Assessment & Plan (03/18/2024 5:22 PM CDT): Chronic. Controlled. Continue beta-carlene and anticoagulation. Monitor Assessment & Plan (12/11/2023 5:55 PM CDT): Chronic. Stable. Continue current prescription medication. Continue anticoagulation for stroke prevention Assessment & Plan (08/10/2023 5:01 PM PAYROLL AUDITOR): Chronic. Follows with cardiology. Has plans for upcoming cardiac ablation and placement of pacemaker. Continue medication and care per Cardiology Chronic anticoagulation 02/19/2020 Assessment & Plan (03/18/2024 5:21 PM CDT): Chronic. Bleeding precautions recommended. Assessment & Plan (12/11/2023 5:54 PM CDT): Chronic no signs of spontaneous bleeding. Continue anticoagulation for stroke prevention. Bleeding precautions recommended Assessment & Plan (08/10/2023 5:01 PM PAYROLL AUDITOR): Chronic due to AFib. Discussed bleeding precautions. [...] counseling Assessment & Plan (08/10/2023 5:01 PM PAYROLL AUDITOR): Chronic. Counseled to quit. Reviewed health risks Chronic bilateral low back pain without sciatica 01/18/2017 Assessment & Plan (08/10/2023 5:04 PM PAYROLL AUDITOR): Chronic. Needs to follow up with pain management Panlobular emphysema 11/09/2016 Assessment & Plan (03/18/2024 5:24 PM CDT): Chronic. Breathing is stable. Continue breztri Assessment & Plan (12/11/2023 5:56 PM CDT): Chronic. Uncontrolled. Needs improvement. Noncompliant with inhalers. Restart BReztri. Stressed importance of smoking cessation. No signs of acute exacerbation Assessment & Plan (08/10/2023 5:00 PM PAYROLL AUDITOR): Chronic. Uncontrolled. Noncompliant with inhalers. Stressed importance of taking breast true regularly. Previously did not like any of the powdered inhalers. Still smoking. Patient will be referred to alternative food and beverage associate for management as he does not want to go to his previous 1 at [facility] Dyslipidemia 09/30/2016 Assessment & Plan (03/18/2024 5:23 PM CDT): Chronic. Tolerates atorvastatin. Continue. 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 They defer for today Assessment & Plan (12/11/2023 5:58 PM CDT): Chronic. Stable. Continue atorvastatin Assessment & Plan (08/10/2023 5:05 PM PAYROLL AUDITOR): Chronic. Encouraged to continue his atorvastatin for [...] decompensation Assessment & Plan (08/10/2023 5:04 PM PAYROLL AUDITOR): Patient has a chronic degree of mild [...] nightly Assessment & Plan (08/10/2023 5:01 PM PAYROLL AUDITOR): Chronic, intermittent hypoxemia. Has supplemental oxygen at night. Has been followed by pulmonology but wishes to switch to closer food and beverage associate Leg edema 10/31/2022 11/16/2022 Discomfort of left [...] drink = 0.6 oz pur e alcohol) [facility] Utilities Answer Date Recorded In the past 12 months has [employer] electric, gas, oil, or water company threatened [...] often do you attend chur ch or confucianism services? Never 08/31/2023 Do you belong to any clubs o r organizations such as religion groups, unions, fraternal or athletic groups, or [...] place to sleep or slept in a nursing home (including now)? No 08/31/2023 Personal Safety Answer Date Recorded Have you ever been in or are you currently in a harmful physical or emotional relationship or is someone making you feel afraid or unsafe? Denies 03/14/2024 Sex and Gender Information Value Date Recorded Sex Assigned at Not on file Legal Sex Male 2:00 AM PAYROLL AUDITOR Gender Identity Not on file Sexual Orientation [...] on file Medical Devices Implanted Type Area Door Attendant Device Identifier Shelf Expiration Date Model / Serial / Lot [employer] Tendril Sts 6fr 58cm Is-1 Connector Active Fixation Bipolar Soft 58 - [id number] - [id number] Implanted:Qty: 1 on 08/11/2023 by Leon Rock MD at [facility] Lead Right: Ventricle [employer] 05/25/20262087TC/ 58 / [id number] / [employer] Tendril Sts 6fr 52cm Is-1 Connector Active Fixation Bipolar Soft - [id number] Implanted:Qty: 1 on 08/11/2023 by Leon oRck MD at [facility] Lead Right: Atrial Appendage [employer] 05/25/20268TC/ / / [employer] Quartet 4.7fr 86cm Quadripolar Is-4 Llll Connector 8 Curve Low 1456q/86 - [id number] - [id number] Implanted:Qty: 1 on 08/11/2023 by Leon Rock MD at [facility] Lead Right: Atrial Appendage [employer] 04/24/2026 1456Q/8 6 / [id number] / Haynes V[employer] Pacemaker Dual Chamber Sql Programmer P Mri Compatible Quadra Allure Mp Ip5939 - [id number] - [id number] Implanted:Qty: 1 on 08/11/2023 by Leon Rock MD at [facility] Pacemaker Left: Infraclavicular Anterior Chest Wall [employer] [id number] / [id number] / Terumo Medical Andreas Angio-Seal Vip 6fr Closere Device 196038 - [id number] Implanted:Qty: 1 on 06/08/2022 by Demetris Kay MD at [facility] Tero Asana Andreas 12/23/2022 [id number] / / [id number] Brown Lif[employer]iences Brooke 3 Commander Brown 26mm Transcatheter Ultra Low Profile C9btt620v - [id number] - [id number] Implanted:Qty: 1 on 10/18/2022 by Demetris Kay MD at [facility] [employer] 05/26/2025 [id number] / [id number] / Description:Heart valve 3T o r less [employer] Device Clsr Perclose Prostyle Sut-Mediatd Closure-Repair Sys 51856-99 - [id number] Implanted:Qty: 1 on 10/18/2022 by Demetris Kay MD at [facility] [employer] 07/25/2024 48649-2 Haynes [employer] Device Clsr Perclose Prostyle Sut-Mediatd Closure-Repair Sys 70634-04 - [id number] Implanted:Qty: 1 on 10/18/2022 by Demetris Kay MD at [facility] [employer] 07/25/2024 61940-7 Terumo [employer] Andreas Angio-Seal Vip 6fr Closere Device [id number] - [id number] Implanted:Qty: 1 on 10/18/2022 by Demetris Kay MD at [facility] 06/24/2023 [id number] / / [id number] Medtronic Inc Coil Embolization Coated Detachable Helical Concerto 1ayo6gg Nylon Tc-6-0-[place] - [id number] Implanted:Qty: 1 on 12/07/2022 at [facility] Medtronic Inc NV-3-4- HELIX / / Medtronic Inc Coil Embolization Coated Detachable Helical Concerto 3nzk89kq Nylon Ka-0-44-[place] - [id number] Implanted:Qty: 1 on 12/07/2022 at [facility] Medtronic Inc NV-5-20 -HELIX / / [employer] Device Clsr Perclose Prostyle Sut-Mediatd Closure-Repair Sys 77812-24 - [id number] Implanted:Qty: 1 on 12/07/2022 at [facility] [employer] [id number] 09/24/2024 57809-9 3 / / [id number] [employer] [employer] Andreas Coil Emolization Coated Detachable Embold 3fxv47xr [place] Tungsten [id number] 20 - [id number] Implanted:Qty: 1 on 12/07/2022 at [facility] [employer] Andreas [id number] 08/23/2025 [id number] 20 / / [id number] [employer] [employer] Andreas Coil Emolization Coated Detachable [place] Tungsten Embold 9imv3gb [id number] 40 - [id number] Implanted:Qty: 1 on 12/07/2022 at [facility] [employer] Andreas [id number] 40 / / [employer] Andreas Coil Emolization Coated Detachable Embold 9rdl6ll [place] Tungsten [id number] 80 - [id number] Implanted:Qty: 1 on 12/07/2022 at [facility] [employer] [id number] 07/31/2025 [id number] 80 / / [id number] Ir Marker .5mm X 1cm Preld 21ga 15cm Long Ndl Visicoil - [id number] Implanted:Qty: 1 on 01/10/2023 at [facility] Radio Med Andreas 11/22/2025 SN-050- 010-PL1 [id number] Ir Marker .5mm X 1cm Preld 21ga 15cm Long Ndl Visicoil - [id number] Implanted:Qty: 1 on 01/10/2023 at [facility] [employer] Andreas 04/24/2025 SN-050- 010-PL1 [id number] Ir Marker .5mm X 1cm Preld 21ga 15cm Long Ndl Visicoil - [id number] Implanted:Qty: 1 on 01/10/2023 at [facility] [employer] Andreas 11/22/2025 SN-050- 010-PL1 [id number] Ir Marker .5mm X 1cm Preld 21ga 15cm Long Ndl Visicoil - [id number] Implanted:Qty: 1 on 01/10/2023 at [facility] [employer] Andreas 11/22/2025 SN-050- 010-PL1 [id number] Medtronic Inc Tyrx Absorbable Antibacterial Envelope-Large 3.3x2.9in Ebbz8472 - [id number] Implanted:Qty: 1 on 09/01/2023 by Leon Rock MD at [facility] Med[employer]onic Inc 05/18/2024 [id number] / / [id number] Terumo Medical Andreas Angio-Seal Vip 6fr Closere Device [id number] - [id number] Implanted:Qty: 1 on 01/09/2024 at [facility] [employer]o Medical Andreas 08/02/2024 [id number] / / [id number] [employer] [employer] Andreas Coil Emolization Coated Detachable Embold 1tnd96te [place] Tungsten [id number] 50 - [id number] Implanted:Qty: 1 on 01/09/2024 at [facility] [employer] Andreas [id number] 08/15/2026 [id number] 50 / / [id number] [employer] Andreas Coil Emolization Coated Detachable Embold 7jtl00ez [place] Tungsten [id number] 00 - [id number] Implanted:Qty: 1 on 01/09/2024 at [facility] [employer] Andreas [id number] 09/07/2026 [id number] 00 / / [id number] [employer] Andreas Coil Emolization Coated Detachable [place] Tungsten Embold 7rcg3bi [id number] 40 - [id number] Implanted:Qty: 1 on 01/09/2024 at [facility] [employer] Andreas [id number] 07/25/2026 [id number] 40 / / [id number] Ter[employer]Stat Angio-Seal Vip 6fr Closere Device [id number] - [id number] Implanted:Qty: 1 on 03/14/2024 at [facility] [employer] Andreas 08/28/2024 [id number] / / [id number] Explanted Type Area Door Attendant Device Identifier Shelf Expiration Date Model / Serial / Lot Applied Optoelectronics Medical Inc Guy Flexi-Stent 7fr 9cm Small Pigtail Flexible .035in Stent 6575 - [id number] Implanted:Qty: 1 on 03/15/2023 by Rusty Pendleton MD at [facility] Explanted:Qty: 1 on 03/17/2023 by Ronald Cortez MD at [facility] Stent N/A: Pancreas Applied Optoelectronics Medical Inc [id number] 09/25/2021 6575 / / [id number] [place] [employer] Andreas Wallflex 10mm X 60mm Fully Covered Biliary [id number] - [id number] Implanted:Qty: 1 on 03/15/2023 by Rusty Pendleton MD at [facility] Explanted:Qty: 1 on 03/17/2023 by Ronald Cortez MD at [facility] Stent N/A: Bile Duct [employer] [employer] Andreas [id number] 12/05/2024 [id number] / / [id number] Procedures Procedure Name Priority Date/Time Associated Diagnosis [...] abdomen or pelvis abnormality. Stat report by [facility] Electronically signed by: Misbah Li M.D. [...] abdomen or pelvis abnormality. Stat report by [facility] Electronically signed by: Misbah Li M.D. Iqra Hedrick MD IMG CT PROCEDURES Gladys l Result * (ABNORMAL) Hepatitis C (HCV) RNA PCR, quantitative (05/13/2016 9:11 AM CDT) [facility] HBsAb log IU/mL 2.0 () log IU 6 7:33 AM [facility] HISTORICAL RESULTS Comment: INTERPRETIVE INFORMATION: Hepatitis C [...] IU/mL 110 () IU/mL 05/18/2016 7:33 AM [facility] HISTORICAL RESULTS HCV RNA result Detected( H) Not Detected 05/18/2016 7:33 AM [facility] HISTORICAL RESULTS HCV RNA See Note () 05/18/2016 7:33 AM [facility] HISTORICAL RESULTS Comment: Access SERPs Enhanced Report using either link below: -Direct access: [email or web address] -Enter Username, Password: [email or web address] Username: [email or web address] Password: [email or web address] Performed by [employer] [address] [place] [id number] [email or web address], Chico Quevedo MD, Lab. Director 05/13/2016 9:11 AM CDT 05/13/2016 9:22 AM CDT us Janis Vasquez NP LAB MICROBIOLOGY - GENERAL ORDERABLES Final Result Performing Organization Address [facility]/ZIP Co de Phone Number [facility] [employer] HISTORICAL RESULTS * Occult blood, fecal non neoplasm screening (05/01/2016 10:10 AM CDT) Stool Occult Blood NEGATIVE NEGATIVE 05/01/2016 12:14 PM CDT [facility] [employer] HISTORICAL RESULTS 05/01/2016 10:1 0 AM CDT 05/01/2016 11:57 AM CDT Narrative [facility] [employer] HISTORICAL RESULTS - 05/01/2016 12:14 PM CDT Collected By us Anthony Zamudio MD LAB BODY FLUIDS AND ST OOLS ORDERABLES Final Result [facility] [employer] HISTORICAL RESULTS from Last 3 Months or Most Recently Relevant to Health Maintenance Insurance [facility] MEDICARE ADVANTAGE [facility] MEDIC[facility] Address: [address] [address] Member Subscriber Plan / Payer (Ef fective 2021-Present) Name:Guero Ahmadi Relation to Subscriber:Self Name:Guero Ahmadi Payer ID:[id number] (NAIC) Type:UHC MEDICARE Address: [place] [id number] IDPA MEDICARE ADVANTAGE Advance Directives For more information, please contact: [phone] * Full Code (Latest Code Status on [...] 11:04 AM 08/12/2023 2:30 PM Care Teams Knockout Machine Operator Relationship Specialty Start Date End Date Monae Velasquez MD [address] [place] [address] PCP - General Family Practice 12/14/22 Mushtaq Blake MD Medical Oncologist/Hematologi st Hematology and Oncology 09/09/22 Miguel Ángel Sanchez MD [address] [place] [address] Consulting Physician Radiation Oncology 12/09/22 Emelyn Curtis MD [address] DIV IM MEDICAL ONCOLOGY, [address] [place] [address] Consulting Physician Medical Oncology 04/17/23 Heena Stephenson MD [address] [place] [address] Fellow General Surgery 04/17/23 Jeffery Bro MD [address] [place] [address] Referring Physician Gastroenterology 05/16/23 Anali Flores MD [address] [place] [address] Consulting Physician Cardiology 05/22/23 [place] [address] [place] [address] Nurse Practitioner Pain Management 05/22/23 [place] [address] [place] [address] Consulting Physician Interventional Radiology 03/14/24
--- OUTSIDE RECORDS SUMMARY | 2024-12-29 22:17 | XMS_ITS | Encounter Summary ---
Author Organization [facility] Address [address] [place] [address] Phone Care Team Providers Care Loss Control Engineer Name Role Phone Andrew Dawson MD Primary Care Provider [phone] Vinicio Dinero MD Primary Care Provider [phone] Marisa Carcamo PAC Unavailable Marisa Carcamo PAC Primary Care Pro vider Reason for Visit * Reason Onset Date Comments Medication Refill 03/10/2020 Encounter Details Date Type Department Care Team (Late st Contact Info) Description 03/10/2020 Refill [facility] [address] [place], [place] [id number] Andrew Dawson MD [address] [address] Medication Refill Social History Tobacco Use Types [...] 19 08/02/2021 08/02/2021 08/22/2021 12:1 6 AM RETAIL ASSISTANT MANAGER COVID - 19 11/03/2021 11/03/2021 11/23/2021 12:1 6 AM RETAIL ASSISTANT MANAGER Assessment Noted Time PHQ-9 Depression Total Score: 0 10/09/19 20 8:42 AM RETAIL ASSISTANT MANAGER documented as of this encounter Care Teams Loss Control Engineer Relationship Specialty Start Date End Date Andrew Dawson MD [address] [address] PCP - General Family Medicine 11/08/16 01/29/21 Vinicio Dinero MD [address] [place] [address] PCP - General Internal Medicine 01/30/21 07/26/21 Marisa Carcamo [facility] [address] [place] [address] PCP - General Physician Dealer Development Manager 07/27/21 12/25/24 Marisa Carcamo, [facility] [address] [place] [address] Physician Dealer Development Manager Physician Dealer Development Manager 01/30/21 documented as of this encounter
--- OUTSIDE RECORDS SUMMARY | 2024-12-29 22:17 | XMS_ITS | Encounter Summary ---
Author Organization [facility] Care Team Providers Care Link Knitting Machine Operator Name Role Phone Andrew Dawson MD Primary Care Provider [phone] Andrew Dawson MD Primary Care Provider [phone] Vinicio Dinero MD Primary Care Provider [phone] Mushtaq Blake MD Unavailable [phone] Miguel Ángel Sanchez MD Unavailable [phone] Monae Velasquez MD Primary Care Provider Emelyn Curtis MD Unavailable [phone] Heena Stephenson MD Unavailable [phone] Jeffery Bro MD Unavailable [phone] Anali Flores MD Unavailable [phone] Alessandro Dominguez NP Unavailable [phone] Luciano Rodriguez MD Unavailable Encounter Details Date Type Department Care Team (Latest Contact Info) Description 11/18/2015 Orders Only [facility]INCONV Provider, MD Sourav [address] [place] [address] Social History Tobacco Use Types Packs/Day Years Used Date Smoking Tobacco: Never Assessed Sex and Gender Information Value Date Recorded Sex Assigned at Not on file Legal Sex Male 2:00 AM LEARNING AND DEVELOPMENT SPECIALIST Gender Identity Not on file Sexual Orientation Not on file documented as of this encounter Plan of Treatment Not on file documented as of this encounter Procedures Procedure Name Priority Date/Time Associated Diagnosis Comments SCAN - LABS 11/18/2015 12:00 AM LEARNING AND DEVELOPMENT SPECIALIST documented in this encounter Results * SCAN - LABS (11/18/2015 12:00 AM LEARNING AND DEVELOPMENT SPECIALIST) Narrative 11/18/2015 12:00 AM LEARNING AND DEVELOPMENT SPECIALIST Ordered by an unspecified provider. us Historical Provider Final Res ult documented in this encounter Visit Diagnoses Not on filedocumented in this encounter Additional Health Concerns Infection Onset Date Last Indicated Resolved Time COVID: Suspected 05/04/2023 05/04/2023 05/04/2023 8:26 PM CDT COVID: Suspected 03/04/2024 03/04/2024 03/04/2024 4:06 PM CDT documented as of this encounter Care Teams Link Knitting Machine Operator Relationship Specialty Start Date End Date Andrew Dawson MD PCP - General Cardiology 12/10/18 10/23/19 Andrew Dawson MD [address] [address] PCP - General Family Medicine 10/24/19 10/19/21 Vinicio Dinero MD [address] [place] [address] PCP - General Internal Medicine 10/20/21 12/13/22 Monae Velasquez MD [address] [place] [address] PCP - General Family Practice 12/14/22 Mushtaq Blake MD [address] [place] [address] Medical Oncologist/Hematologi st Hematology and Oncology 09/09/22 Miguel Ángel Sanchez MD [address] [place] [address] Consulting Physician Radiation Oncology 12/09/22 Emelyn Curtis MD [address] DIV IM MEDICAL ONCOLOGY, [address] [place] [address] Consulting Physician Medical Oncology 04/17/23 Heena Stephenson MD [address] [place] [address] Fellow General Surgery 04/17/23 Jeffery Bro MD [address] [place] [address] Referring Physician Gastroenterology 05/16/23 Anali Flores MD [address] [email or web address] [address] [place] [address] Consulting Physician Cardiology 05/22/23 [place] [address] [place] [address] Nurse Practitioner Pain Management 05/22/23 [place] [address] [place] [address] Consulting Physician Interventional Radiology 03/14/24 documented as of this encounter
--- OUTSIDE RECORDS SUMMARY | 2024-12-29 22:17 | XMS_ITS ---
Author Organization [facility] [address] Address [address] [place] [address] Care Team Providers Care Web Solutions Architect Name Role Phone Mushtaq Blake MD Unavailable [phone] Miguel Ángel Sanchez MD Unavailable [phone] Monae Velasquez MD Primary Care Provider Emelyn Curtis MD Unavailable [phone] Heena Stephenson MD Unavailable [phone] Jeffery Bro MD Unavailable [phone] Anali Flores MD Unavailable [phone] Alessandro Dominguez NP Unavailable Luciano Rodriguez MD Unavailable [phone] Active Problems Problem Noted Date Diagnosed Date [...] SSS, Afib, AV Node Ablation. DOI 08/11/2023-[facility] [place] remote. Sick sinus syndrome 07/20/2023 Assessment & Plan (12/11/2023 6:00 PM CDT): Chronic. Status post pacemaker. Stable. Continue care per cardiology and electrophysiology Assessment & Plan (08/10/2023 5:04 PM RAILROAD CAR LOADER): Patient has a degree of persistent bradycardia [...] mirtazapine Assessment & Plan (08/10/2023 5:04 PM RAILROAD CAR LOADER): Chronic. Continue the buspirone and mirtazapine. They [...] specialist Assessment & Plan (08/10/2023 5:03 PM RAILROAD CAR LOADER): Chronic. Per recent notes from Oncology and [...] constipation Assessment & Plan (08/10/2023 5:03 PM RAILROAD CAR LOADER): Chronic back pain syndrome. Saw pain management [...] management Assessment & Plan (08/10/2023 5:02 PM RAILROAD CAR LOADER): Chronic. Struggles with chronic pain. Was previously [...] management Assessment & Plan (08/10/2023 5:02 PM RAILROAD CAR LOADER): Status post prior transaortic valve replacement. Care per Cardiology Chronic diastolic CHF (congestive heart failure) 01/21/2021 Assessment & Plan (03/18/2024 5:22 PM CDT): Chronic. Compensated. Continue current medication. Monitor Assessment & Plan (12/11/2023 5:55 PM CDT): Chronic. Compensated. Continue current prescription medication Assessment & Plan (08/10/2023 5:02 PM RAILROAD CAR LOADER): Chronic. Compensated. Continue medication and care per Cardiology Persistent atrial fibrillation 01/20/2021 Assessment & Plan (03/18/2024 5:22 PM CDT): Chronic. Controlled. Continue beta-carlene and anticoagulation. Monitor Assessment & Plan (12/11/2023 5:55 PM CDT): Chronic. Stable. Continue current prescription medication. Continue anticoagulation for stroke prevention Assessment & Plan (08/10/2023 5:01 PM RAILROAD CAR LOADER): Chronic. Follows with cardiology. Has plans for upcoming cardiac ablation and placement of pacemaker. Continue medication and care per Cardiology Chronic anticoagulation 02/19/2020 Assessment & Plan (03/18/2024 5:21 PM CDT): Chronic. Bleeding precautions recommended. Assessment & Plan (12/11/2023 5:54 PM CDT): Chronic no signs of spontaneous bleeding. Continue anticoagulation for stroke prevention. Bleeding precautions recommended Assessment & Plan (08/10/2023 5:01 PM RAILROAD CAR LOADER): Chronic due to AFib. Discussed bleeding precautions. [...] counseling Assessment & Plan (08/10/2023 5:01 PM RAILROAD CAR LOADER): Chronic. Counseled to quit. Reviewed health risks Chronic bilateral low back pain without sciatica 01/18/2017 Assessment & Plan (08/10/2023 5:04 PM RAILROAD CAR LOADER): Chronic. Needs to follow up with pain management Panlobular emphysema 11/09/2016 Assessment & Plan (03/18/2024 5:24 PM CDT): Chronic. Breathing is stable. Continue breztri Assessment & Plan (12/11/2023 5:56 PM CDT): Chronic. Uncontrolled. Needs improvement. Noncompliant with inhalers. Restart BReztri. Stressed importance of smoking cessation. No signs of acute exacerbation Assessment & Plan (08/10/2023 5:00 PM RAILROAD CAR LOADER): Chronic. Uncontrolled. Noncompliant with inhalers. Stressed importance of taking breast true regularly. Previously did not like any of the powdered inhalers. Still smoking. Patient will be referred to alternative web mobile designer for management as he does not want to go to his previous 1 at [facility] Dyslipidemia 09/30/2016 Assessment & Plan (03/18/2024 5:23 PM CDT): Chronic. Tolerates atorvastatin. Continue. 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 They defer for today Assessment & Plan (12/11/2023 5:58 PM CDT): Chronic. Stable. Continue atorvastatin Assessment & Plan (08/10/2023 5:05 PM RAILROAD CAR LOADER): Chronic. Encouraged to continue his atorvastatin for [...] decompensation Assessment & Plan (08/10/2023 5:04 PM RAILROAD CAR LOADER): Patient has a chronic degree of mild [...] nightly Assessment & Plan (08/10/2023 5:01 PM RAILROAD CAR LOADER): Chronic, intermittent hypoxemia. Has supplemental oxygen at night. Has been followed by pulmonology but wishes to switch to closer web mobile designer Leg edema 10/31/2022 11/16/2022 Discomfort of left [...]
--- OUTSIDE RECORDS SUMMARY | 2024-12-29 22:17 | XMS_ITS | Encounter Summary ---
Author Organization [facility] Address [address] [place] [address] Care Team Providers Care Ambulance Mechanic Name Role Phone Ravinder Street MD Unavailable [phone] MD Unavailable [phone] Andrew Dawson MD Primary Care Provider [phone] Vinicio Dinero MD Primary Care Provider [phone] Reason for Visit * Reason Onset Date Comments MEDICATION REFILL 12/24/2018 Encounter Details Date Type Department Care Team (Late st Contact Info) Description 12/24/2018 Refill [facility] [address] [facility] [address] [place] [address] Andrew Dawson MD [address] [place] [address] [address] [place] [address] MEDICATION REFILL Social History Tobacco [...] documented as of this encounter Care Teams Ambulance Mechanic Relationship Specialty Start Date End Date Andrew Dawson MD PCP - General 09/11/18 12/27/21 Vinicio Dinero MD [address] [place] [address] PCP - General 12/28/[address] MD Resident - PCP Student Resident 08/27/[address] MD Student Resident 08/28/18 documented as of this encounter
--- OUTSIDE RECORDS SUMMARY | 2024-12-29 22:17 | XMS_ITS | Encounter Summary ---
Author Organization [facility] Address [address] [place] [address] Care Team Providers Care Electric Container Tester Name Role Phone Ravinder Street MD Unavailable [phone] MD Unavailable [phone] Andrew Dawson MD Primary Care Provider [phone] Vinicio Dinero MD Primary Care Provider [phone] Reason for Visit * Reason Onset Date Comments MEDICATION REFILL 11/25/2020 Encounter Details Date Type Department Care Team (Late st Contact Info) Description 11/25/2020 Refill [facility] [address] [place] [address] Jony Hernandez MD [address] [facility] [address] [facility] [address] MEDICATION REFILL Social History Tobacco Use Types [...] documented as of this encounter Care Teams Electric Container Tester Relationship Specialty Start Date End Date Andrew Dawson MD PCP - General 09/11/18 12/27/21 Vinicio Dinero MD [address] [place] [address] PCP - General 12/28/[address] MD Resident - PCP Student Resident 08/27/[address] MD Student Resident 08/28/18 documented as of this encounter
--- OUTSIDE RECORDS SUMMARY | 2024-12-29 22:17 | XMS_ITS | Encounter Summary ---
Author Organization [facility] Address [address] [place] [address] Care Team Providers Care Bilingual Customer Service Specialist Name Role Phone Mushtaq Blake MD Unavailable [phone] Miguel Ángel Sanchez MD Unavailable [phone] Monae Velasquez MD Primary Care Provider Emelyn Curtis MD Unavailable [phone] Heena Stephenson MD Unavailable [phone] Jeffery Bro MD Unavailable [phone] Anali Flores MD Unavailable [phone] Alessandro Dominguez NP Unavailable [phone] Luciano Rodriguez MD Unavailable Encounter Details Date Type Department Care Team (Late st Contact Info) Description 01/04/2024 Telephone [facility] Primary Care at [address] [address] Monae Velasquez MD [address] [place] [address] [address] [place] [address] Social History Tobacco Use Types Packs/Day Years Used Date Smoking Tobacco: Every Day Cigarettes 1.5 50 Smokeless Tobacco: Never Comments:At least a pack a d ay Alcohol Use Standard Drinks/Week Comments Not Currently 0 (1 standard drink = 0.6 oz pur e alcohol) [facility] Utilities Answer Date Recorded In the past [...] often do you attend chur ch or restoration services? Never 08/31/2023 Do you belong to any clubs o r organizations such as orthodox groups, unions, fraternal or athletic groups, or [...] place to sleep or slept in a mcfp (including now)? No 08/31/2023 Personal Safety Answer Date Recorded Have you ever been in or are you currently in a harmful physical or emotional relationship or is someone making you feel afraid or unsafe? Denies 08/30/2023 Sex and Gender Information Value Date Recorded Sex Assigned at Not on file Legal Sex Male 2:00 AM CV/CVN CV TSC SYSTEM OPERATOR Gender Identity Not on file Sexual Orientation [...] documented as of this encounter Care Teams Bilingual Customer Service Specialist Relationship Specialty Start Date End Date Monae Velasquez MD [address] [place] [address] PCP - General Family Practice 12/14/22 Mushtaq Blake MD Medical Oncologist/Hematologi st Hematology and Oncology 09/09/22 Miguel Ángel Sanchez MD [address] DEPT [place] [address] Consulting Physician Radiation Oncology 12/09/22 Emelyn Curtis MD [address] DIV IM MEDICAL ONCOLOGY, [address]A, 7B, 7C [place] [address] Consulting Physician Medical Oncology 04/17/23 Heena Stephenson MD [address] [place] [address] Fellow General Surgery 04/17/23 Jeffery Bro MD [address] [place] [address] Referring Physician Gastroenterology 05/16/23 RadhaAnali valdez MD [address] [place] [address] Consulting Physician Cardiology 05/22/23 [place] [address] [place] [address] Nurse Practitioner Pain Management 05/22/23 [place] [address] [place] [address] Consulting Physician Interventional Radiology 03/14/24 documented as of this encounter
--- OUTSIDE RECORDS SUMMARY | 2024-12-29 22:17 | XMS_ITS | Encounter Summary ---
Author Organization [facility] Care Team Providers Care Cake Puller Name Role Phone Andrew Dawson MD Primary Care Provider [phone] Andrew Dawson MD Primary Care Provider [phone] Vinicio Dinero MD Primary Care Provider [phone] Mushtaq Blake MD Unavailable [phone] Miguel Ángel Sanchez MD Unavailable [phone] Monae Velasquez MD Primary Care Provider Emelyn Curtis MD Unavailable [phone] Heena Stephenson MD Unavailable [phone] Jeffery Bro MD Unavailable [phone] Anali Flores MD Unavailable [phone] Alessandro Dominguez NP Unavailable [phone] Luciano Rodriguez MD Unavailable [phone] Encounter Details Date Type Department Care Team (Latest Contact Info) Description 06/27/2016 Orders Only [facility] Provider, MD Sourav [address] [place] [address] Social History Tobacco Use Types Packs/Day Years Used Date Smoking Tobacco: Never Assessed Sex and Gender Information Value Date Recorded Sex Assigned at Not on file Legal Sex Male 2:00 AM MANAGER POWER Gender Identity Not on file Sexual Orientation [...] documented as of this encounter Care Teams Cake Puller Relationship Specialty Start Date End Date Andrew Dawson MD PCP - General Cardiology 12/10/18 10/23/19 Andrew Dawson MD [address] [address] PCP - General Family Medicine 10/24/19 10/19/21 Vinicio Dinero MD [address] [place] [address] PCP - General Internal Medicine 10/20/21 12/13/22 Monae Velasquez MD [address] [place] [address] PCP - General Family Practice 12/14/22 Mushtaq Blake MD [address] [place] [address] Medical Oncologist/Hematologi st Hematology and Oncology 09/09/22 Miguel Ángel Sanchez MD [address] [place] [address] Consulting Physician Radiation Oncology 12/09/22 Emelyn Curtis MD [address] DIV IM MEDICAL ONCOLOGY, [address]A, 7B, 7[address] [place] [address] Consulting Physician Medical Oncology 04/17/23 Heena Stephenson MD [address] [place] [address] Fellow General Surgery 04/17/23 Jeffery Bro MD [address] [facility] [address] [place] [id number] Referring Physician Gastroenterology 05/16/23 Anali Flores MD [address] [facility] [address] [place] [address] Consulting Physician Cardiology 05/22/23 Alessandro Dominguez STATION INSTALLATION SUPERVISOR [address] [place] [address] Nurse Practitioner Pain Management 05/22/23 [place] [address] [place] [address] Consulting Physician Interventional Radiology 03/14/24 documented as of this encounter
--- OUTSIDE RECORDS SUMMARY | 2024-12-29 22:17 | XMS_ITS | Encounter Summary ---
Author Organization [facility] Address [address] [facility] [address] [place] [address] Care Team Providers Care Call Manager Name Role Phone Andrew Dawson MD Primary Care Provider [phone] Andrew Dawson MD Primary Care Provider Vinicio Dinero MD Primary Care Provider [phone] Mushtaq Blake MD Unavailable [phone] Miguel Ángel Sanchez MD Unavailable [phone] Monae Velasquez MD Primary Care Provider Emelyn Curtis MD Unavailable [phone] Heena Stephenson MD Unavailable [phone] Jeffery Bro MD Unavailable [phone] Anali Flores MD Unavailable [phone] Alessandro Dominguez NP Unavailable [phone] Luciano Rodriguez MD Unavailable Encounter Details Date Type Department Care Team (Late st Contact Info) Description 12/27/2016 Orders Only [facility] Provider, MD Sourav [address] [place] [address] Social History Tobacco Use Types Packs/Day Years Used Date Smoking Tobacco: Never Assessed Sex and Gender Information Value Date Recorded Sex Assigned at Not on file Legal Sex Male 2:00 AM ENVIRONMENTAL STUDIES FACULTY MEMBER Gender Identity Not on file Sexual Orientation [...] documented as of this encounter Care Teams Call Manager Relationship Specialty Start Date End Date Andrew Dawson MD PCP - General Cardiology 12/10/18 10/23/19 Andrew Dawson MD [address] [address] PCP - General Family Medicine 10/24/19 10/19/21 Vinicio Dinero MD [address] [place] [address] PCP - General Internal Medicine 10/20/21 12/13/22 Monae Velasquez MD [address] [place] DEPT [place] [address] PCP - General Family Practice 12/14/22 Mushtaq Blake MD [address] [place] [address] Medical Oncologist/Hematologi st Hematology and Oncology 09/09/22 Miguel Ángel Sanchez MD [address] DEPT [place] [address] Consulting Physician Radiation Oncology 12/09/22 Emelyn Curtis MD [address] DIV IM MEDICAL ONCOLOGY, [address], 7B, [address]C [place] [address] Consulting Physician Medical Oncology 04/17/23 Heena Stephenson MD [address] [place] [address] Fellow General Surgery 04/17/23 Jeffery Bro MD [address] [facility] [address] [place] [address] Referring Physician Gastroenterology 05/16/23 Anali Flores MD [address] [facility] [address] [place] [address] Consulting Physician Cardiology 05/22/23 [place] [address] [place] [address] Nurse Practitioner Pain Management 05/22/23 [place] [address] [place] [address] Consulting Physician Interventional Radiology 03/14/24 documented as of this encounter
--- OUTSIDE RECORDS SUMMARY | 2024-12-29 22:17 | XMS_ITS | Encounter Summary ---
Author Organization [facility] Address [address] [place] [address] Phone Care Team Providers Care Sap Abap Developer Name Role Phone Andrew Dawson MD Primary Care Provider Vinicio Dinero MD Primary Care Provider [phone] Marisa Carcamo PAC Unavailable Marisa Carcamo PAC Primary Care Pro vider Reason for Visit * Reason Comments Medication Refill Encounter Details Date Type Department Care Team (Late st Contact Info) Description 03/17/2020 Refill [facility] - Family Medicine [facility] [address] [place] [address] Andrew Dawson MD [address] [address] Medication Refill Social History Tobacco Use Types [...] PHYSICIAN GROUP FAM[facility] [place] APN, MENTAL RETARDATION NURSE 6 months ago Chronic bilateral low back pain without sciatica [facility] Andrew Dawson MD Upcoming Appointments Future Appointments In 6 days Kaylynn Lockhart, FIXED WING AIRCRAFT FLIGHT ENGINEER [facility] In 1 week Kaylynn Lockhart, FIXED WING AIRCRAFT FLIGHT ENGINEER [facility] In 2 weeks Sarah Hilton, PT [facility] Powered by [employer] - 03/17/2020 12:45 PM The requested medication is not on the active medication list. documented in this encounter Plan of Treatment Not on file documented as of this encounter Visit Diagnoses Not on filedocumented in this encounter Additional Health Concerns Infection Onset Date Last Indicated Resolved Time COVID - 19 08/02/2021 08/02/2021 08/22/2021 12:1 6 AM LATHE MACHINIST COVID - 19 11/03/2021 11/03/2021 11/23/2021 12:1 6 AM LATHE MACHINIST Assessment Noted Time PHQ-9 Depression Total Score: 0 03/12/20 20 12:31 PM CDT documented as of this encounter Care Teams Sap Abap Developer Relationship Specialty Start Date End Date Andrew Dawson MD [address] [address] PCP - General Family Medicine 11/08/16 01/29/21 Vinicio Dinero MD [address] [place] [address] PCP - General Internal Medicine 01/30/21 07/26/21 Marisa Carcamo, PAC [address] [place] [address] PCP - General Physician Cashier Assistant 07/27/21 12/25/24 Marisa Carcamo, PAC [address] [place] [address] Physician Cashier Assistant Physician Cashier Assistant 01/30/21 documented as of this encounter
--- OUTSIDE RECORDS SUMMARY | 2024-12-29 22:17 | XMS_ITS | Clinical Summary ---
Author Organization [facility] Address [address] [place], [facility] [address] [place] [address] Phone Care Team Providers Care Dry Finisher Name Role Phone Unavailable Primary Care Provider [...] 02/02/2017 Overview (02/02/2017): Cardio follows; Dr Sant[address]; [place], [place] [address] COPD (chronic obstructive pulmonary disease) 07/2017 Overview [...] [facility] - Internal [facility] - [place] [address] [address] Marisa Carcamo, FOREST from Last 3 [...] Comments Blood Pressure 98/54 11/15/2021 11:25 AM MAINTENANCE SUPERVISOR 2ND SHIFT Pulse 61 11/15/2021 11:25 AM MAINTENANCE SUPERVISOR 2ND SHIFT Temperature 36.3 C (97.4 F) 11/15/2021 11:25 AM MAINTENANCE SUPERVISOR 2ND SHIFT Respiratory Rate 12 11/15/2021 11:2 5 AM MAINTENANCE SUPERVISOR 2ND SHIFT Oxygen Saturation 98% 11/15/2021 11: 25 AM MAINTENANCE SUPERVISOR 2ND SHIFT Inhaled Oxygen Concentration - - Weight 69.7 kg (153 lb 11.2 oz) 02/21/2 022 11:25 AM MAINTENANCE SUPERVISOR 2ND SHIFT Height 175.3 cm (5' 9 ) 11/15/2021 11:2 5 AM MAINTENANCE SUPERVISOR 2ND SHIFT Body Mass Index 22.7 11/15/2021 11:25 AM MAINTENANCE SUPERVISOR 2ND SHIFT Plan of Treatment Health Maintenance Due Date [...] this topic Medical Devices Implanted Type Area Senior Biostatistician/Group Leader Device Identifier Shelf Expiration Date Model / Serial / Lot Angioseal Vip 6fr - [id number] Implanted:Qty : 1 on 06/08/2017 by Deyanira Rick MD at [facility] IMPLANT Right: Groin TERUMO / CARDIOVASCULAR SYSTEM 02/22/2018 [id number] / [id number] / [id number] Procedures Procedure Name Priority Date/Time Associated Diagnosis Comments CT CHEST SCREENING WO Routine 11/19/2021 12:00 AM MAINTENANCE SUPERVISOR 2ND SHIFT Smoker Personal history of nicotine dependence PSA SCREEN 11/19/2021 12:00 AM MAINTENANCE SUPERVISOR 2ND SHIFT from Last 3 Months or Most Recently Relevant to Health Maintenance Results * CT CHEST SCREENING WO (11/19/2021 12:00 AM MAINTENANCE SUPERVISOR 2ND SHIFT) Anatomical Region Laterality Modality Chest N/A Other 11/19/2021 us Marisa Carcamo PAC IMG CT ORDERABLES Final Result * PSA SCREEN (11/19/2021 12:00 AM MAINTENANCE SUPERVISOR 2ND SHIFT) Blood 11/19/2021 us Not On File Provider CHEMISTRY ORDERABLES Edited Result - Final SCAN from Last 3 Months or Most Recently Relevant to Health Maintenance Insurance [place] [address] MEDICARE C [employer] [place] Advance Directives Documents on File Type Date Recorded Patient Chemical Recovery Operator Expl anation Advance Care Planning Discussion 02/25/2019 [...]
--- OUTSIDE RECORDS SUMMARY | 2024-12-29 22:17 | XMS_ITS | Encounter Summary ---
Author Organization [facility] Address [address] [place] [address] Phone Care Team Providers Care Outsole Handler Name Role Phone Marisa Carcamo PAC Primary Care Pro vider Reason for Visit * Reason Comments Medication Refill Encounter Details Date Type Department Care Team (Late st Contact Info) Description 07/01/2023 Refill [facility] - Family [facility] [address] [place] [address] Marisa Carcamo, PAC [address] [place] [address] Medication Refill Social History Tobacco [...] Depression Total Score: 11 021 3:00 PM SERICULTURIST documented as of this encounter Care Teams Outsole Handler Relationship Specialty Start Date End Date Marisa Carcamo PAC [address] [place] [address] PCP - General Physician Homicide Squad Sergeant 07/27/21 12/25/24 documented as of this encounter
--- OUTSIDE RECORDS SUMMARY | 2024-12-29 22:17 | XMS_ITS | Encounter Summary ---
Author Organization [facility] Facility Care Team Providers Care Research And Evaluation Manager Name Role Phone Andrew Dawson MD Primary Care Provider [phone] Andrew Dawson MD Primary Care Provider [phone] Vinicio Dinero MD Primary Care Provider +- [phone] Mushtaq Blake MD Unavailable [phone] Miguel Ángel Sanchez MD Unavailable [phone] Monae Velasquez MD Primary Care Provider Emelyn Curtis MD Unavailable [phone] Heena Stephenson MD Unavailable [phone] Jeffery Bro MD Unavailable [phone] Anali Flores MD Unavailable [phone] Alessandro Dominguez NP Unavailable [phone] Luciano Rodriguez MD Unavailable Encounter Details Date Type Department Care Team (Latest Contact Info) Description 09/28/2016 Orders Only [facility] CLINCONV Provider, MD Sourav [address] [place] [address] Social History Tobacco Use Types Packs/Day Years Used Date Smoking Tobacco: Never Assessed Sex and Gender Information Value Date Recorded Sex Assigned at Not on file Legal Sex Male 2:00 AM TUFTING CREELER Gender Identity Not on file Sexual Orientation Not on file documented as of this encounter Plan of Treatment Not on file documented as of this encounter Procedures Procedure Name Priority Date/Time Associated Diagnosis Comments SCAN - LABS 10/07/2016 12:00 AM TUFTING CREELER documented in this encounter Results * SCAN - LABS (10/07/2016 12:00 AM TUFTING CREELER) Narrative 10/07/2016 12:00 AM TUFTING CREELER Ordered by an unspecified provider. us Historical Provider Final Res ult documented in this encounter Visit Diagnoses Not on filedocumented in this encounter Additional Health Concerns Infection Onset Date Last Indicated Resolved Time COVID: Suspected 05/04/2023 05/04/2023 05/04/2023 8:26 PM CDT COVID: Suspected 03/04/2024 03/04/2024 03/04/2024 4:06 PM CDT documented as of this encounter Care Teams Research And Evaluation Manager Relationship Specialty Start Date End Date Andrew Dawson MD PCP - General Cardiology 12/10/18 10/23/19 Andrew Dawson MD [address] [address] PCP - General Family Medicine 10/24/19 10/19/21 Vinicio Dinero MD [address] [place] [address] PCP - General Internal Medicine 10/20/21 12/13/22 Monae Velasquez MD [address] [place] [address] PCP - General Family Practice 12/14/22 Mushtaq Blake MD [address] [place] [address] Medical Oncologist/Hematologi st Hematology and Oncology 09/09/22 Miguel Ángel Sanchez MD [address] [place] [address] Consulting Physician Radiation Oncology 12/09/22 Emelyn Curtis MD [address] DIV IM MEDICAL ONCOLOGY, [address] 7A, 7B, 7C [place] [address] Consulting Physician Medical Oncology 04/17/23 Heena Stephenson MD [address] 12B [place] [address] Fellow General Surgery 04/17/23 Jeffery Bro MD [address] [place] [address] Referring Physician Gastroenterology 05/16/23 Anali Flores MD [address] [facility] [address] [place] [address] Consulting Physician Cardiology 05/22/23 [place] [address] [place] [address] Nurse Practitioner Pain Management 05/22/23 [place] [address] [place] [address] Consulting Physician Interventional Radiology 03/14/24 documented as of this encounter
--- OUTSIDE RECORDS SUMMARY | 2024-12-29 22:17 | XMS_ITS | Encounter Summary ---
Author Organization [facility] Healthcare Address [address] [place] [address] Care Team Providers Care Embedded Developer Name Role Phone Vinicio Dinero MD Primary Care Provider [phone] Mushtaq Blake MD Unavailable [phone] Miguel Ángel Sanchez MD Unavailable [phone] Monae Velasquez MD Primary Care Provider Emelyn Curtis MD Unavailable [phone] Heena Stephenson MD Unavailable [phone] Jeffery Bro MD Unavailable [phone] Anali Flores MD Unavailable [phone] Alessandro Dominguez NP Unavailable [phone] Luciano Rodriguez MD Unavailable [phone] Encounter Details Date Type Department Care Team (Late st Contact Info) Description 09/02/2022 Telephone [facility] - Interventional Radiology [address] [place] [address] Amanda Valenzuela, ZANE Social History Tobacco Use Types Packs/Day Years Used Date Smoking Tobacco: Every Day Cigarettes Smokeless Tobacco: Never Comments[facility] at [facility]. 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 Gender Identity Not on file Sexual [...] documented as of this encounter Care Teams Embedded Developer Relationship Specialty Start Date End Date Vinicio Dinero MD [address] [place] [address] PCP - General Internal Medicine 10/20/21 12/13/22 Monae Velasquez MD [address] DE[place] [address] PCP - General Family Practice 12/14/22 Mushtaq Blake MD [address] [place] [address] Medical Oncologist/Hematologi st Hematology and Oncology 09/09/22 Miguel Ángel Sanchez MD [address] [place] [address] Consulting Physician Radiation Oncology 12/09/22 Emelyn Curtis MD [address] [facility] MEDICAL ONCOLOGY, [address] 7A, 7B, 7[place] [address] Consulting Physician Medical Oncology 04/17/23 Heena Stephenson MD [address] [facility] [address] 12B [place] [address] Fellow General Surgery 04/17/23 Jeffery Bro MD [address] [facility] [address] [place] [address] Referring Physician Gastroenterology 05/16/23 Anali Flores MD [address] [facility] [address] [place] [address] Consulting Physician Cardiology 05/22/23 [place] [address] [address] [place] [address] Nurse Practitioner Pain Management 05/22/23 [place] [address] [address] [place] [address] Consulting Physician Interventional Radiology 03/14/24 documented as of this encounter
--- OUTSIDE RECORDS SUMMARY | 2024-12-29 22:17 | XMS_ITS | Encounter Summary ---
Author Organization [facility] Address [address] [place] [address] Phone Care Team Providers Care Federal Aid Coordinator Name Role Phone Andrew Dawson MD Primary Care Provider Vinicio Dinero MD Primary Care Provider [phone] Marisa Carcamo PAC Unavailable Marisa Carcamo PAC Primary Care Pro vider Reason for Visit * Reason Comments Medication Refill Encounter Details Date Type Department Care Team (Late st Contact Info) Description 05/28/2020 Refill [facility] - Family Medicine [facility] [address]2 [place] [address] Andrew Dawson MD #[address] [address] Medication Refill Social History Tobacco Use Types [...] 19 08/02/2021 08/02/2021 08/22/2021 12:1 6 AM SINTER PRESS 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 COVID - 19 11/03/2021 11/03/2021 11/23/2021 12:1 6 AM SINTER PRESS OPERATOR Assessment Noted Time PHQ-9 Depression Total Score: 0 03/12/20 20 12:31 PM CDT documented as of this encounter Care Teams Federal Aid Coordinator Relationship Specialty Start Date End Date Andrew Dawson MD [address] [address] PCP - General Family Medicine 11/08/16 01/29/21 Vinicio Dinero MD [address] [place] [address] PCP - General Internal Medicine 01/30/21 07/26/21 Marisa Carcamo, PAC [address] [place] [address] PCP - General Physician Veterans Services Specialist 07/27/21 12/25/24 Marisa Carcamo, PAC [address] [place] [address] Physician Veterans Services Specialist Physician Veterans Services Specialist 01/30/21 documented as of this encounter
--- OUTSIDE RECORDS SUMMARY | 2024-12-29 22:17 | XMS_ITS | Encounter Summary ---
Author Organization [facility] Facility Care Team Providers Care Real Estate Assistant Name Role Phone Andrew Dawson MD Primary Care Provider [phone] Andrew Dawson MD Primary Care Provider [phone] Vinicio Dinero MD Primary Care Provider [phone] Mushtaq Blake MD Unavailable [phone] Miguel Ángel Sanchez MD Unavailable [phone] Monae Velasquez MD Primary Care Provider Emelyn Curtis MD Unavailable [phone] Heena Stephenson MD Unavailable [phone] Jeffery Bro MD Unavailable [phone] Anali Flores MD Unavailable [phone] Alessandro Dominguez NP Unavailable [phone] Luciano Rodriguez MD Unavailable Encounter Details Date Type Department Care Team (Latest Contact Info) Description 02/15/2015 Orders Only [facility] CLINCONV Provider, MD Sourav [address] [place] [address] Social History Tobacco Use Types Packs/Day Years Used Date Smoking Tobacco: Never Assessed Sex and Gender Information Value Date Recorded Sex Assigned at Not on file 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 Gender Identity Not on file Sexual [...] documented as of this encounter Care Teams Real Estate Assistant Relationship Specialty Start Date End Date Andrew Dawson MD PCP - General Cardiology 12/10/18 10/23/19 Andrew Dawson MD [address] [address] PCP - General Family Medicine 10/24/19 10/19/21 Vinicio Dinero MD [address] [place] [address] PCP - General Internal Medicine 10/20/21 12/13/22 Monae Vleasquez MD [address] DEPT [place] [address] PCP - General Family Practice 12/14/22 Mushtaq Blake MD [address] [place] [address] Medical Oncologist/Hematologi st Hematology and Oncology 09/09/22 Miguel Ángel Sanchez MD [address] DEPT [place] [address] Consulting Physician Radiation Oncology 12/09/22 Emelyn Curtis MD [address] DIV IM MEDICAL ONCOLOGY, [address]A, 7B, 7[place] [address] Consulting Physician Medical Oncology 04/17/23 Heena Stephenson MD [address] [place] [address] Fellow General Surgery 04/17/23 Jeffery Bro MD [address] [facility] [address] [place] [id number] Referring Physician Gastroenterology 05/16/23 Anali Flores MD [address] [facility] [address] [place] [address] Consulting Physician Cardiology 05/22/23 Alessandro Dominguez HEAD CORRECTION OFFICER [address] [place] [address] Nurse Practitioner Pain Management 05/22/23 [place] [address] [place] [address] Consulting Physician Interventional Radiology 03/14/24 documented as of this encounter
--- OUTSIDE RECORDS SUMMARY | 2024-12-29 22:17 | XMS_ITS | Encounter Summary ---
Author Organization [facility] Healthcare Address [address] [place] [address] Care Team Providers Care Otolaryngologist Name Role Phone Vinicio Dinero MD Primary Care Provider [phone] Mushtaq Blake MD Unavailable [phone] Miguel Ángel Sanchez MD Unavailable [phone] Monae Velasquez MD Primary Care Provider Emelyn Curtis MD Unavailable [phone] Heena Stephenson MD Unavailable [phone] Jeffery Bro MD Unavailable [phone] Anali Flores MD Unavailable [phone] Alessandro Dominguez NP Unavailable [phone] Luciano Rodriguez MD Unavailable Encounter Details Date Type Department Care Team (Late st Contact Info) Description 09/23/2022 Telephone [facility] - Interventional Radiology [address] [place] [address] Amanda Valenzuela, ZANE Social History Tobacco Use Types Packs/Day Years Used Date Smoking Tobacco: Every Day Cigarettes Smokeless Tobacco: Never Comments[facility] at this time. 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 Gender Identity Not on file Sexual Orientation [...] documented as of this encounter Care Teams Otolaryngologist Relationship Specialty Start Date End Date Vinicio Dinero MD [address] [place] [address] PCP - General Internal Medicine 10/20/21 12/13/22 Monae Velasquez MD [address] [place] [address] PCP - General Family Practice 12/14/22 Mushtaq Blake MD [address] [place] [address] Medical Oncologist/Hematologi st Hematology and Oncology 09/09/22 Miguel Ángel Sanchez MD [address] [place] [address] Consulting Physician Radiation Oncology 12/09/22 Emelyn Curtis MD [address] [facility] MEDICAL ONCOLOGY, [address] 7A, 7B, [address] [address] Consulting Physician Medical Oncology 04/17/23 Heena Stephenson MD [address] [facility] [address] [place] [address] Fellow General Surgery 04/17/23 Jeffery Bro MD [address] [facility] [address] [place] [address] Referring Physician Gastroenterology 05/16/23 Anali Flores MD [address] [facility] [address] [place] [address] Consulting Physician Cardiology 05/22/23 [place] [address] [address] [place] [address] Nurse Practitioner Pain Management 05/22/23 [place] [address] [address] [place] [address] Consulting Physician Interventional Radiology 03/14/24 documented as of this encounter
--- OUTSIDE RECORDS SUMMARY | 2024-12-29 22:17 | XMS_ITS | Encounter Summary ---
Author Organization [facility] Address [address] [place] [address] Care Team Providers Care Fern Gatherer Name Role Phone Andrew Dawson MD Primary Care Provider [phone] MD Unavailable [phone] Maddi Cantrell DO Primary Care Provider [phone] MD Unavailable [phone] Andrew Dawson MD Primary Care Provider [phone] Vinicio Dinero MD Primary Care Provider [phone] Reason for Visit * Reason Onset Date Comments Appointment 08/13/2018 Encounter Details Date Type Department Care Team (Late st Contact Info) Description 08/13/2018 Telephone [facility] General Internal Medicine [address] [address] aMddi Cantrell DO [address] OF [facility] [place] [address] Appointment Social History Tobacco Use Types Packs/Day [...] the patient for 2:30 pm. 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
--- OUTSIDE RECORDS SUMMARY | 2024-12-29 22:17 | XMS_ITS | Encounter Summary ---
Author Organization [facility] Health Address [address] [facility] [place] [address] Care Team Providers Care Gas Maker Name Role Phone Ravinder Street MD Unavailable [phone] MD Unavailable [phone] Andrew Dawson MD Primary Care Provider [phone] Vinicio Dinero MD Primary Care Provider [phone] Encounter Details Date Type Department Care Team (Late st Contact Info) Description 08/12/2021 [facility]phone [facility] [address] [place] [address] Jony Hernandez MD [address] OF PULMONARY/[place] [address] Social History Tobacco Use Types Packs/Day Years [...] Instructions* Brittany Brown - 08/12/2021 8:13 AM CLASS 1 OWNER OPERATOR Patient's sister, Felisa called and said they are both sick today. She would ideally like to switch to TELE[employer] today. Can you call her at [phone]? 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
--- OUTSIDE RECORDS SUMMARY | 2024-12-29 22:17 | XMS_ITS | Encounter Summary ---
Author Organization [facility] Address [address] [place] [address] Care Team Providers Care Dye Automation Operator Name Role Phone Andrew Dawson MD Primary Care Provider [phone] MD Unavailable [phone] Maddi Cantrell DO Primary Care Provider [phone] MD Unavailable [phone] Andrew Dawson MD Primary Care Provider [phone] Vinicio Dinero MD Primary Care Provider [phone] Reason for Visit * Reason Onset Date Comments MEDICATION REFILL 08/24/2018 Refill Request 08/27/2018 Encounter Details Date Type Department Care Team (Late st Contact Info) Description 08/24/2018 Refill [facility] General Internal Medicine [address] [facility] [address] [place] [address] Andrew Dawson MD [address] [place] [address] [address] [place] [address] MEDICATION REFILL; Refill Request Social History Tobacco [...] to see how patient responds as weaning. [place] PDMP reviewed and only opioid prescription from November found. However, [facility] pharmacy reportspatient was receiving up to 90 1 mg alprazolam tabs until December through them. No refills with them from December until June when received 30 tabs from [place] ED physician. Then received 20 tabs at hospital discharge. Need to discuss further with patient. Note in [facility] computer that notes no refills to be given early and that [place] PDMP needs to reviewed regularly (another name in PDMP?). Will have Dr. Street follow up with patient to obtain further history as unclear if receiving medication for several months and have concerns with assisted use of 1 mg BID-TID. Would advocate need to see psychiatry to further assess and need records from previous PCP. Additionally spoke with Danisha in system who reports that patient has a prescription from February for alprazolam which was not ever filled and has not been filling meds with them regularly. IAL CLASS WELDER * Telephone Encounter - Denae Rausch - 08/28/2018 2:41 PM CST [facility] Pharmacy calling back in with two issues. 1) [facility] has been waiting 4+ days for clarification [...] forwarded to PCP and not resident per [facility] request d/t patient being upset about extended wait time. IAL CLASS WELDER * Telephone Encounter - Denae Rausch - 08/28/2018 8:32 AM CST Patient calling to check on refill request for Xanax made on 07-28-18. Patient made aware that request is pending with MD. Patient requested that request be sent back to MD high priority. IAL CLASS WELDER * Telephone Encounter - Анна Mathew, ZANE - 08/27/2018 1:18 PM SPECIAL CLASS WELDER Patient's sister calling again to check on status of xanax refill. Also states the pharmacy is unable to fill prednisone prescription due to needing clarification on directions. Please call [facility] or patient sister back today. [phone] IAL CLASS WELDER * Telephone Encounter - Kari Finley, ZANE - 08/27/2018 8:22 AM CST Telephone call from patient. Patient stated that he did get his Prednisone but he did not get the Xanax. Patient is requesting that the Xanax be refilled [place] as he has been out of it for a week. IAL CLASS WELDER * Telephone Encounter - Mehnaz Gutierrez - [...] no routed to [facility] scheduling ONLY no. 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
--- OUTSIDE RECORDS SUMMARY | 2024-12-29 22:17 | XMS_ITS | Encounter Summary ---
Author Organization [facility] Address [address] [place] [address] Phone Care Team Providers Care Holistic Nutritionist Name Role Phone Andrew Dawson MD Primary Care Provider [phone] Vinicio Dinero MD Primary Care Provider [phone] Marisa Carcamo PAC Unavailable Marisa Carcamo PAC Primary Care Pro vider Reason for Visit * Reason Comments Medication Refill Encounter Details Date Type Department Care Team (Late st Contact Info) Description 07/08/2020 Refill [facility] - Family Medicine [facility] #2 [place] [address] Andrew Dawson MD [address] [address] Medication Refill Social History Tobacco Use Types [...] 1 month ago Chronic atrial fibrillation (HCC) [facility] - Andrew Lopez MD 2 months ago Chronic atrial fibrillation (HCC) [facility] - Sera William APN, CNP 2 months ago Tachycardia [facility] - Sera William APN, CNP 3 months ago Chronic bilateral low back pain without sciatica [facility] Andrew Lopez MD 6 months ago Liver lesion [facility] Andrew Lopez MD Upcoming Appointments CHEMICAL RECOVERY OPERATOR - Recent and Past Visits Recent [...] 10/09/19 Office Visit Sera Spring APN, JOY [facility] 09/02/19 Office Visit Andrew Dawson MD [facility] 08/26/19 Office Visit Sánchez Jenkins APN, TOOL GRINDER [facility] 08/20/19 Office Visit Andrew Dawson MD [facility] Showing recent visits within past 460 [...] 19 08/02/2021 08/02/2021 08/22/2021 12:1 6 AM CRIME LAB ANALYST COVID - 19 11/03/2021 11/03/2021 11/23/2021 12:1 6 AM CRIME LAB ANALYST Assessment Noted Time PHQ-9 Depression Total Score: 0 03/12/20 20 12:31 PM CDT documented as of this encounter Care Teams Holistic Nutritionist Relationship Specialty Start Date End Date Andrew Dawson MD #[address] [address] PCP - General Family Medicine 11/08/16 01/29/21 Vinicio Dinero MD [address] [place] [address] PCP - General Internal Medicine 01/30/21 07/26/21 Marisa Carcamo, FOREST [address] [place] [address] PCP - General Physician [facility] 07/27/21 12/25/24 Marisa Carcamo, FOREST [address] [place] [address] Physician [facility] Physician [facility] 01/30/21 documented as of this encounter
--- OUTSIDE RECORDS SUMMARY | 2024-12-29 22:17 | XMS_ITS | Encounter Summary ---
Author Organization [facility] Address [address] [place] [address] Care Team Providers Care Hospice Coordinator Name Role Phone Andrew Dawson MD Primary Care Provider [phone] MD Unavailable [phone] Maddi Cantrell DO Primary Care Provider [phone] MD Unavailable [phone] Andrew Dawson MD Primary Care Provider [phone] Vinicio Dinero MD Primary Care Provider [phone] Encounter Details Date Type Department Care Team (Late st Contact Info) Description 08/13/2018 Telephone [facility] General Internal Medicine [address] [facility] [address] [place] [address] Andrew Dawson MD [address] [place] [address] [address] [place] [address] Social History Tobacco Use Types [...] documented as of this encounter Care Teams Hospice Coordinator Relationship Specialty Start Date End Date Andrew Dawson MD PCP - General 04/23/18 08/27/18 Maddi Cantrell DO PCP - General Internal Medicine 08/28/18 09/10/18 Andrew Dawson MD PCP - General 09/11/18 12/27/21 Vinicio Dinero MD [address] [place] [address] PCP - General 12/28/[address] MD Resident - PCP Student Resident 08/27/[address] MD Student Resident 08/28/18 documented as of this encounter
--- OUTSIDE RECORDS SUMMARY | 2024-12-29 22:17 | XMS_ITS | Encounter Summary ---
Author Organization [facility] Address [address] [place] [place] [address] Care Team Providers Care House Worker Name Role Phone Ravinder Street MD Unavailable [phone] Maddi Cantrell DO Primary Care Provider [phone] MD Unavailable [phone] Andrew Dawson MD Primary Care Provider [phone] Vinicio Dinero MD Primary Care Provider [phone] Reason for Visit * Reason Onset Date Comments General 08/28/2018 Encounter Details Date Type Department Care Team (Late st Contact Info) Description 08/28/2018 Telephone [facility] General Internal Medicine [address] [facility] 206 [place] [address] Maddi Cantrell DO [address] [facility] [address] OF [place] [address] General Social History Tobacco Use Types Packs/Day [...] the pt's sister the alprazolam is pending EWAY OPERATOR documented in this encounter Plan of Treatment Not on file documented as of this encounter Visit Diagnoses Not on filedocumented in this encounter Additional Health Concerns Infection Onset Date Last Indicated Resolved Time 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
--- OUTSIDE RECORDS SUMMARY | 2024-12-29 22:17 | XMS_ITS | Clinical Summary ---
Author Organization [facility] Address [address] [place] [address] Care Team Providers Care Quality Control Assessor Name Role Phone Ravinder Street MD Unavailable [phone] MD Unavailable [phone] Vinicio Dinero MD Primary Care Provider [phone] Source Comments [facility],non-owned Affiliates and Associated Physician Practices is amultiple site organization consisting of ambulatory clinics and hospital sitesin [place], [place], [place] and [place]. This disclosure is being madepursuant to the Care Everywhere program and may not contain all information available regarding this patient. Last updated 18.[facility] Allergies Active Allergy Reactions Criticality Noted Date [...] sprayIndications:A llergic rhinitis, unspecified seasonality, unspecified trigger Mercedes 2 sprays into each nostril once daily [...] daily 90 tablet 3 07/27/2022 Active saline (Chetek) gelIndications:Dry nose Mercedes into each nostril as needed for Dry [...] CDT Respiratory Rate 20 11/27/2019 12:38 PM SATELLITE TV TECHNICIAN INSTALLER Oxygen Saturation 96% 01/13/2021 3:08 PM CDT Inhaled Oxygen Concentration 21% 11/07/2018 8 :13 AM SATELLITE TV TECHNICIAN INSTALLER Weight 64 kg (141 lb) 07/27/2022 2:16 [...] this topic Medical Devices Implanted Type Area Python Engineer Device Identifier Shelf Expiration Date Model / Serial / Lot Wax Bone Implanted:Qty: 1 on 02/07/2013 by Wilbur Muñoz MD at [facility] N/A: Spine Cervical [employer] [id number] / / Coil Azur Detatch .018in 3.0-5.0cm Implanted:Qty: 1 on 07/30/2018 at [facility] [employer] 01/22/2023 [id number] / / [id number] Coil Azur Detatch .018in 2.0mm X 2.0cm Implanted:Qty: 1 on 07/30/2018 at [facility] [employer] 02/22/2022 [id number] / / [id number] Procedures Procedure Name Priority Date/Time Associated Diagnosis Comments CT LUNG SCREEN LOW DOSE Routine 07/19/2021 9:29 AM CDT Encounter for screening for lung cancer HEPATITIS C RNA QUANTITATIVE Routine 09/11/2018 11:09 AM SATELLITE TV TECHNICIAN INSTALLER Chronic hepatitis C without hepatic coma from [...] chest CT. Dictated by Miles Andre D.O. (Inspector Structural Bonding) This report was approved by Miles Andre [...] chest CT. Dictated by Miles Andre D.O. (Inspector Structural Bonding) This report was approved by Miles Andre on 07/19/2021 10:14 AM . I, Dr. ALEXX LACY have personally reviewed and interpreted this examination/study. This report was electronically signed by ALEXX LACY on 110:20 AM . Jony Hernandez MD CT ORDERABLES * HEPATITIS C RNA QUANTITATIVE (09/11/2018 11:09 AM SATELLITE TV TECHNICIAN INSTALLER) Hepatitis C RNA PCR, Interp Not Detected Not Detected 09/14/2018 8:16 AM SATELLITE TV TECHNICIAN INSTALLER [facility] Blood BLOOD SPECIMEN / Unknown Lab Venipuncture / Unknown 09/11/2018 11:09 AM SATELLITE TV TECHNICIAN INSTALLER 09/11/2018 11:36 AM SATELLITE TV TECHNICIAN INSTALLER Narrative [facility] - 09/14/2018 8:16 AM SATELLITE TV TECHNICIAN INSTALLER The Hepatitis C viral (HCV) RNA analysis utilized a serum sample, real-time reverse waste cotton cleaner PCR, and is reported as Not Detected, [...] the isolation of HCV RNA with reverse waste cotton cleaner of genomic HCV RNA followed by real-time PCR in the presence of an unrelated RNA internal control. The internal control ensures that RNA is isolated, and that no general significant inhibitors of the RT-PCR process are present. The analysis was performed using a U.S. FDA approved test methodology ([employer] Real Time HCV). Nishant Cifuentes MD LAB - CHEMISTRY ROGER MCLAIN Performing Organization Address City/State/[facility] Co de Phone Number [facility] [address] [facility] [phone] from Last 3 Months or Most Recently [...] 10:57 PM 07/30/2018 6:08 PM Care Teams Quality Control Assessor Relationship Specialty Start Date End Date Vinicio Dinero MD [address] [place] [address] PCP - General 12/28/[address] MD Resident - PCP Student Resident 08/27/[address] MD Student Resident 08/28/18
--- OUTSIDE RECORDS SUMMARY | 2024-12-29 22:17 | XMS_ITS | Encounter Summary ---
Author Organization [facility] Address [address] [place] [address] Phone Care Team Providers Care Operating Room Tech Name Role Phone Andrew Dawson MD Primary Care Provider [phone] Vinicio Dinero MD Primary Care Provider [phone] Marisa Carcamo PAC Unavailable Marisa Carcamo PAC Primary Care Pro vider Reason for Visit * Reason Onset Date Comments Medication Refill Medication Refill 06/08/2020 Medication Refill 06/10/2020 Encounter Details Date Type Department Care Team (Late st Contact Info) Description 06/02/2020 Refill [facility] - Family Medicine [facility] [address] [place] [address] Andrew Dawson MD [address] [address] Medication Refill; Medication Refill; Medication Refill Social [...] 1 month ago Chronic atrial fibrillation (HCC) [facility] PHYSICIAN [facility] FAMILY MEDICINE Sera Spring APN, CNP 1 month ago Tachycardia [place] PH[facility]ICIAN [facility] FAMILY Sera Diop APN, CNP 2 months ago Chronic bilateral low back pain without sciatica [facility] Andrew Conway MD 4 months ago Liver lesion [facility] Andrew Dawson MD Upcoming Appointments FITNESS INSTRUCTOR - Recent and Past Visits Recent Visits Date Type Provider Dept 05/12/20 Office Visit Andrew Dawson MD [facility] [place] 04/17/20 Office Visit Sera Spring APN, JOY [facility] [place] 04/15/20 Office Visit Sera Spring APN, NOCTURNIST [facility] [place] 03/12/20 Office Visit Andrew Dawson MD [facility] [place] 01/08/20 Telemedicine Andrew Dawson MD [facility] [place] 12/31/19 Telemedicine Andrew Dawson MD [facility] [place] 10/09/19 Office Visit Sera Spring APN, JOY [facility] [place] 09/02/19 Office Visit Andrew Dwason MD [facility] [place] 08/26/19 Office Visit Sánchez Jenkins APN, JOY [facility] [place] 08/20/19 Office Visit Andrew Dawson MD [facility] [place] Showing recent visits within past 460 [...] 19 08/02/2021 08/02/2021 08/22/2021 12:1 6 AM BOARDING KENNEL OR CATTERY OPERATOR COVID - 19 11/03/2021 11/03/2021 11/23/2021 12:1 6 AM BOARDING KENNEL OR CATTERY OPERATOR Assessment Noted Time PHQ-9 Depression Total Score: 0 03/12/20 12:31 PM CDT documented as of this encounter Care Teams Operating Room Tech Relationship Specialty Start Date End Date Andrew Dawson MD [address] [address] PCP - General Family Medicine 11/08/16 01/29/21 Vinicio Dinero MD [address] [place] [address] PCP - General Internal Medicine 01/30/21 07/26/21 Marisa Carcamo, [facility] [address] [place] [address] PCP - General Physician Naval Designer 07/27/21 12/25/24 Marisa Carcamo, [facility] [address] [place] [address] Physician Naval Designer Physician Naval Designer 01/30/21 documented as of this encounter
--- OUTSIDE RECORDS SUMMARY | 2024-12-29 22:17 | XMS_ITS | Encounter Summary ---
Author Organization [facility] Address [address] [place] [address] Care Team Providers Care Recovery Room Nurse Name Role Phone Mushtaq Blake MD Unavailable [phone] Miguel Ángel Sanchez MD Unavailable [phone] Monae Velasquez MD Primary Care Provider Emelyn Curtis MD Unavailable [phone] Heena Stephenson MD Unavailable [phone] Jeffery Bro MD Unavailable [phone] Anali Flores MD Unavailable [phone] Alessandro Dominguez NP Unavailable [phone] Luciano Rodriguez MD Unavailable Encounter Details Date Type Department Care Team (Late st Contact Info) Description 01/05/2023 Telephone [facility] - Interventional Radiology [address] [place] [address] Amanda Valenzuela, RN Social History [...] on file Legal Sex Male 2:00 AM COMMUNICATIONS CONTROLLER Gender Identity Not on file Sexual Orientation Not on file 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 Not on file Not on file documented as of this encounter Plan of Treatment Not on file documented as of this encounter Results * (ABNORMAL) Basic metabolic panel (01/10/2023 9:41 AM CDT) Sodium 139 135 - 145 mmol/L [facility] Potassium, pl 4.5 3.3 - 4.9 mmol/L [facility] Chloride 106 97 - 110 mmol/L [facility] CO2 27 22 - 32 mmol/L [facility] Anion gap 6 2 - 15 mmol/L [facility] BUN 27(H) 8 - 25 mg/dL [facility] Creatinine 1.54(H) 0.80 - 1.30 mg/dL [facility] Glucose 97 70 - 199 mg/dL [facility] Comment: Interpretive Data Fasting glucose >/= [...] 2022. Calcium 9.3 8.5 - 10.3 mg/dL [facility] Blood 01/10/2023 9:41 AM CDT 01/10/2023 10:19 AM CDT us Oscar Mcnair MD LAB BLOOD ORDERABLES Gladys l Result Performing Organization Address [facility] Co de Phone Number [facility] [address] [employer] [place], [place] [id number] * (ABNORMAL) CBC with auto differential (01/10/2023 9:41 AM CDT) WBC 10.5(H) 3.8 - 9.9 K/cumm [facility] Hgb 14.9 13.0 - 17.5 g/dL [facility] Hct 45.3 38.9 - 50.3 % [facility] Plt 154 150 - 400 K/cumm [facility] MPV 10.3 9.1 - 12.3 fL [facility] RBC 4.39 4.30 - 5.80 M/cumm [facility] MCV 103.2(H) 81.3 - 96.4 fL [facility] MCH 33.9(H) 27.1 - 33.3 pg [facility] MCHC 32.9 32.3 - 35.7 g/dL [facility] RDW CV 13.5 11.1 - 14.9 % [facility] RDW SD 51.4(H) 35.7 - 48.1 fL [facility] NRBC abs 0.00 0.00 - 0.01 K/cumm [facility] Blood 01/10/2023 9:41 AM CDT 01/10/2023 10:19 AM CDT Oscar Mcnair MD LAB BLOOD ORDERABLES Gladys l Result Performing Organization Address [facility]/ZIP Co de Phone Number [facility] [address] Department [employer] [place], [place] [phone] documented in this encounter Visit Diagnoses Diagnosis Hepatocellular carcinoma (HCC)- Primary Malignant neoplasm of liver, primary documented in this encounter Additional Health Concerns Infection Onset Date Last Indicated Resolved Time COVID: Suspected 05/04/2023 05/04/2023 05/04/2023 8:26 PM CDT COVID: Suspected 03/04/2024 03/04/2024 03/04/2024 4:06 PM CDT documented as of this encounter Care Teams Recovery Room Nurse Relationship Specialty Start Date End Date Monae Velasquez MD [address] [place] [address] PCP - General Family Practice 12/14/22 Mushtaq Blake MD Medical Oncologist/Hematologi st Hematology and Oncology 09/09/22 Miguel Ángel Sanchez MD [address] [place] [address] Consulting Physician Radiation Oncology 12/09/22 Emelyn Curtis MD [address] DIV IM MEDICAL ONCOLOGY, [address] [place] [address] Consulting Physician Medical Oncology 04/17/23 Heena Stephenson MD [address] [place] [address] Fellow General Surgery 04/17/23 Jeffery Bro MD [address] [address] Referring Physician Gastroenterology 05/16/23 Anali Flores MD [address] [place] [address] Consulting Physician Cardiology 05/22/23 Alessandro Dominguez SOA INTEGRATION ARCHITECT [address] [place] [address] Nurse Practitioner Pain Management 05/22/23 [place] [address] [place] [address] Consulting Physician Interventional Radiology 03/14/24 documented as of this encounter
--- OUTSIDE RECORDS SUMMARY | 2024-12-29 22:18 | XMS_ITS | Encounter Summary ---
Author Organization [facility] Address [address] [place] [address] Phone Care Team Providers Care Qa Automation Architect Name Role Phone Marisa Carcamo PAC Primary Care Pro vider Reason for Visit * Reason Comments Medication Refill Encounter Details Date Type Department Care Team (Late st Contact Info) Description 02/14/2023 Refill [facility] - Internal Medicine - [place] [address] [place] [address] Marisa Carcamo, [facility] [address] [place] [address] Medication Refill Social History Tobacco [...] Total Score: 11 08/02/2 021 3:00 PM MACHINE FITTER documented as of this encounter Care Teams Qa Automation Architect Relationship Specialty Start Date End Date Marisa Carcamo, [facility] [address] [place] [address] PCP - General Physician Ball Holder 07/27/21 12/25/24 documented as of this encounter
--- OUTSIDE RECORDS SUMMARY | 2024-12-29 22:18 | XMS_ITS | Encounter Summary ---
Author Organization [facility] Address [address] [place] [address] Phone Care Team Providers Care Sales Promotion Coordinator Name Role Phone Marisa Carcamo PAC Primary Care Pro vider Reason for Visit * Reason Comments Medication Refill Encounter Details Date Type Department Care Team (Late st Contact Info) Description 02/11/2023 Refill [facility] - Internal Medicine - [place] [address] [place] [address] Marisa Carcamo, [facility] [address] [place] [address] Medication Refill Social History Tobacco [...] Depression Total Score: 11 021 3:00 PM PIN INSERTER REGULATOR documented as of this encounter Care Teams Sales Promotion Coordinator Relationship Specialty Start Date End Date Marisa Carcamo PAC [address] [place] [address] PCP - General Physician Bottom Presser 07/27/21 12/25/24 documented as of this encounter
--- OUTSIDE RECORDS SUMMARY | 2024-12-29 22:18 | XMS_ITS | Encounter Summary ---
Author Organization [facility] Address [address] [place] [address] Phone Care Team Providers Care Phone Counselor Name Role Phone Marisa Carcamo PAC Primary Care Pro vider Reason for Visit * Reason Comments Medication Refill Encounter Details Date Type Department Care Team (Late st Contact Info) Description 11/07/2022 Refill [facility] - Internal Medicine - [place] [address] [place] [address] Marisa Carcamo, [facility] [address] [place] [address] Medication Refill Social History Tobacco [...] with Buspirone for at least 6 months UNTANT CONTROLLER documented in this encounter Plan of Treatment Not on file documented as of this encounter Visit Diagnoses Diagnosis Anxiety Anxiety state, unspecified documented in this encounter Additional Health Concerns Assessment Noted Time PHQ-9 Depression Total Score: 11 021 3:00 PM ACCOUNTANT CONTROLLER documented as of this encounter Care Teams Phone Counselor Relationship Specialty Start Date End Date Marisa Carcamo PAC [address] [place] [address] PCP - General Physician Dental Equipment Technician 07/27/21 12/25/24 documented as of this encounter
--- OUTSIDE RECORDS SUMMARY | 2024-12-29 22:18 | XMS_ITS | Encounter Summary ---
Author Organization [facility] Address [address] [place] [address] Phone Care Team Providers Care Funding Coordinator Name Role Phone Marisa Carcamo PAC Primary Care Pro vider Reason for Visit * Reason Comments Medication Refill Encounter Details Date Type Department Care Team (Late st Contact Info) Description 11/14/2022 Refill [facility] - Internal Medicine - [place] [address] [place] [address] Marisa Carcamo, [facility] [address] [place] [address] Medication Refill Social History Tobacco [...] with SSRI for at least 6 months [employer] documented in this encounter Plan of Treatment Not on file documented as of this encounter Visit Diagnoses Not on filedocumented in this encounter Additional Health Concerns Assessment Noted Time PHQ-9 Depression Total Score: 11 021 3:00 PM MANAGER UNIVERSITY documented as of this encounter Care Teams Funding Coordinator Relationship Specialty Start Date End Date Marisa Carcamo PAC [address] [place] [address] PCP - General Physician Computer Operations Manager 07/27/21 12/25/24 documented as of this encounter
--- OUTSIDE RECORDS SUMMARY | 2024-12-29 22:18 | XMS_ITS | Encounter Summary ---
Author Organization [facility] Address [address] [place] [address] Phone Care Team Providers Care Shale Miner Blasting Name Role Phone Marisa Carcamo PAC Primary Care Pro vider Reason for Visit * Reason Comments Medication Refill Encounter Details Date Type Department Care Team (Late st Contact Info) Description 02/05/2023 Refill [facility] - Internal Medicine - [place] [address] [place] [address] Marisa Carcamo, [facility] [address] [place] [address] Medication Refill Social History Tobacco [...] Depression Total Score: 11 021 3:00 PM UNIT DIRECTOR documented as of this encounter Care Teams Shale Miner Blasting Relationship Specialty Start Date End Date Marisa Carcamo PAC [address] [place] [address] PCP - General Physician Mobile Nurse 07/27/21 12/25/24 documented as of this encounter
[2024-12-29 22:36] VITALS: BP 150/121; PULSE 70; RESP 24; TEMP 36.5; O2SAT 96; BMI 19.3
[2024-12-29] MEDS: PROCHLORPERAZINE EDISYLATE 10 MG/2 ML VIAL IV PUSH (22:37)
[2024-12-29] MEDS: diazePAM INJ (*CRX) 10 MG/2 ML SYRINGE 5 MG IV PUSH (22:37)
[2024-12-29 22:55] VITALS: PULSE 90; RESP 24
[2024-12-29] MEDS: HYDROmorphone HCL/PF (*CRX) 50 MG in SODIUM CHLORIDE 0.9% IV 95 ML IV CONT (22:55)
[2024-12-29] MEDS: ARTIFICIAL TEARS OPHTH SOLN 15 ML BOTTLE 1 DROP EACH EYE (23:07)
[2024-12-30] MEDS: diazePAM INJ (*CRX) 10 MG/2 ML SYRINGE 5 MG IV PUSH ×2 (05:59→14:05)
[2024-12-30 08:00] VITALS: BP 71/39; PULSE 70; RESP 24; TEMP 36.8; O2SAT 97
[2024-12-30 08:48] VITALS: O2SAT 95
[2024-12-30 14:11] VITALS: TEMP 38.4
[2024-12-30] MEDS: ACETAMINOPHEN 650 MG SUPPOSITORY RECTAL (14:11)
[2024-12-30] MEDS: GLYCOPYRROLATE INJ (*SP) 0.2 MG/ML VIAL 0.1 MG IV PUSH (14:39)
[2024-12-30 15:10] VITALS: TEMP 37.2
[2024-12-30 19:40] VITALS: PULSE 70; RESP 24; O2SAT 95
--- NOTE | 2024-12-30 20:46 | P.HP_ITS ---
H&P: HPI History of Present Illness Date/Time: 12/30/24 20:46 Chief Complaint: Uncontrolled pain Narrative: 69 y/o gentleman on hospice service was sent to ED due to uncontrolled pain. His pain escalated in the 24 hours prior to admission and was not controlled with escalating doses of morphine and hydromorphone. He was admitted to inpatient hospice service for symptom management. Review of Systems Review of Systems: ROS unobtainable: Yes unobtainable due to medical condition PMFSH Past Medical History Medical History Hospice care patient Vitziggy Liver cancer Dementia Paroxysmal atrial fibrillation cardioversion x 2 BPH (benign prostatic hyperplasia) Epistaxis Chronic kidney disease Aortic stenosis mild Atrial flutter Chest pain, musculoskeletal Hepatitis C Anemia Anxiety Depression Back pain Osteoporosis Kidney stones GERD (gastroesophageal reflux disease) History of rectal polyps Tuberculosis Bronchitis Emphysema of lung COPD (chronic obstructive pulmonary disease) DVT (deep venous thrombosis) HTN (hypertension) HLD (hyperlipidemia) CHF (congestive heart failure) Echo 09/2018: EF of 50% and impaired diastolic relaxation grade 1 Heart attack Pt reports old TX but I could ot find any documentation in [facility], Care Everywhere, etc. Cardiac cath 2017 showed normal coronary arteries. CVA (cerebral vascular accident) Right side effects Cataracts, bilateral Surgical History Surgical History History of esophagogastroduodenoscopy (EGD) Dr. Bro History of appendectomy Hx of spinal surgery Hx of cardiac catheterization x2 Family History Family History Father Heart disease Mother Diabetes mellitus Heart disease Hypertension Grandparent Hypertension Social History Social History Social History: Lives alone, sister Felisa Jerome helps with his meds. he has 1 son. The patient used to smoke up to 2 packs of cigarettes a day and cut down to 1. He uses marijuana often. He retired from [employer]. POLST signed 07/15/24 lists no CPR, do not attempt resuscitation (DNAR), comfort focus treatment. Smoking packs per day: 1 Smoking cigarettes per day: 20.0 Years smoked: 45 Smoking pack-years: 45.00 Smoking status: Current every day smoker Tobacco type: cigarettes Second hand tobacco smoke exposure: No Alcohol intake: current Substance use: current Substance use type: marijuana Other substance usage details: OCC. Last use: today Lack of Transportation: No Lack of Food: Never True Current Housing: I Have Housing Concerned About Future Housing: No Difficulty Paying Gas/Electric Bills: No Difficulty Paying for Meds: No Currently Unemployed: No Education: High School Diploma/GED Difficulty w/ Childcare or Family Care: No Living arrangements: alone Occupation/Education: retired Gender identity (if verbalized by the patient): Male Spiritual care concerns: No Agree to blood products: Yes Meds Home Medications and Allergies Home Medications ?Medication ?Instructions ?Recorded ?Confirmed ?Type atorvastatin 20 mg tablet 20 mg PO DAILY 09/20/19 06/26/24 History metoprolol succinate 50 mg 50 mg PO DAILY 02/23/23 06/26/24 History tablet,extended release 24 hr rivaroxaban 15 mg tablet (Xarelto) 15 mg PO DAILY 02/23/23 06/26/24 History tamsulosin 0.4 mg capsule 0.4 mg PO DAILY 02/23/23 06/26/24 History ondansetron 4 mg disintegrating 4 mg PO Q8H PRN nausea and 01/18/24 06/26/24 Rx tablet vomiting #7 tabs aspirin 81 mg tablet,delayed 81 mg PO DAILY 06/18/24 06/26/24 History release lubiprostone 24 mcg capsule 48 mcg PO BIDWMEAL 06/18/24 06/26/24 History mirtazapine 15 mg tablet 15 mg PO HS 06/18/24 06/26/24 History oxycodone 10 mg tablet 10 mg PO TID PRN Pain 06/18/24 06/26/24 History lansoprazole 30 mg capsule,delayed See Rx Instructions .Route 07/09/24 Rx release .COMPLEX #180 caps metoclopramide HCl 5 mg tablet See Rx Instructions .Route 07/09/24 Rx .COMPLEX #30 tabs Allergies Allergy/AdvReac Type Severity Reaction Status Date / Time nicotine Allergy Intermediate Nightmare Verified 12/29/24 19:40 albuterol AdvReac Shakiness Verified 12/29/24 19:40 Vital Signs Vital Signs - 24 hr 12/29/24 22:07 12/29/24 22:36 12/29/24 22:55 Temperature 97.7 F Pulse Rate 70 90 Respiratory Rate 24 H 24 H Blood Pressure 150/121 H Pulse Oximetry 96 Oxygen Delivery Room Air 12/30/24 08:00 12/30/24 08:00 12/30/24 08:48 Temperature 98.2 F Pulse Rate 70 Respiratory Rate 24 H Blood Pressure 71/39 L Pulse Oximetry 97 95 Oxygen Delivery Room Air Room Air 12/30/24 14:11 12/30/24 15:10 12/30/24 19:40 Temperature 101.1 F H 98.9 F Pulse Rate 70 Respiratory Rate 24 H Blood Pressure Pulse Oximetry 95 Oxygen Delivery Room Air Exam Narrative: prior to my exam Assessment and Plan Assessment and plan (1) Hospice care: Code(s): Z51.5 - Encounter for palliative care Status: Acute Assessment and Plan: * Meets inpatient hospice criteria due to requiring continuous IV hydromorphone for pain uncontrolled by oral medications * PRN palliative regimen ordered (2) Liver cancer: Code(s): C22.9 - Malignant neoplasm of liver, not specified as primary or secondary Status: Acute
--- NOTE | 2024-12-30 20:51 | PM.DDS ---
Discharge Summary Probable Cause of Probable Cause of : Liver cancer Summary Hospital Course: Admitted from outpatient hospice to inpatient hospice service due to uncontrolled pain. Medications were titrated to comfort. Mr. Ahmadi peacefully.
--- OUTSIDE RECORDS SUMMARY | 2025-01-03 12:56 | XMS_ITS | Encounter Summary ---
Author Organization [facility] Address [address] [place] [address] Phone Care Team Providers Care Stations Superintendent Name Role Phone Andrew Dawson MD Primary Care Provider [phone] Vinicio Dinero MD Primary Care Provider [phone] Marisa Carcamo PAC Unavailable Marisa Carcamo PAC Primary Care Pro vider Reason for Visit * Reason Comments Medication Refill Encounter Details Date Type Department Care Team (Late st Contact Info) Description 10/19/2020 Refill [facility] [address] [place] [address] Andrew Dawson MD [address] [address] Medication Refill Social History Tobacco Use Types [...] COVID-19? No / Unsure 10/17/2020 2:19 PM SKIN CARE THERAPIST documented as of this encounter Miscellaneous Notes [...] Recent Outpatient Visits 1 month ago Anxiety [facility] - Sera William APN, CNP 5 months ago Chronic atrial fibrillation (HCC) [facility] - Andrew Lopez MD 6 months ago Chronic atrial fibrillation (HCC) [facility] - Sera William APN, CNP 6 months ago Tachycardia [facility] - Sera William APN, CNP 7 months ago Chronic bilateral low back pain without sciatica [facility] Andrew Lopez MD Upcoming Appointments HOTEL HOUSEMAN - Recent and Past Visits Recent Visits Date Type Provider Dept 08/28/20 Office Visit Sera Spring APN, CNP [facility] 05/12/20 Office Visit Andrew Dawson MD [facility] 04/17/20 Office Visit Sera Spring APN, CNP [facility] 04/15/20 Office Visit Sera Spring APN, CNP [facility] 03/12/20 Office Visit Andrew Dawson MD [facility] 01/08/20 Telemedicine Andrew Dawson MD [facility] 12/31/19 Telemedicine [facility] 10/09/19 Office Visit Sera Spring APN, SOCIAL SCIENCE TEACHER [facility] 09/02/19 Office Visit Andrew Dawson MD [facility] 08/26/19 Office Visit Sánchez Jenkins APN, SOCIAL SCIENCE TEACHER [facility] Showing recent visits within past 460 days with a meds authorizing provider and meeting all other requirements Future Appointments No visits were found meeting these conditions. Showing future appointments within next 90 days with a meds authorizing provider and meeting all other requirements CARE THERAPIST * Telephone Encounter - Ruth Almodovar RN - 10/19/2020 2:44 PM CST Patient calling in regarding refill request for xanax Notified that refill request was received today from the pharmacy and is waiting for providers response To provider for direction CARE THERAPIST documented in this encounter Plan of Treatment Not on file documented as of this encounter Visit Diagnoses Diagnosis Anxiety Anxiety state, unspecified documented in this encounter Additional Health Concerns Infection Onset Date Last Indicated Resolved Time COVID - 19 08/02/2021 08/02/2021 08/22/2021 12:1 6 AM SKIN CARE THERAPIST COVID - 19 11/03/2021 11/03/2021 11/23/2021 12:1 6 AM SKIN CARE THERAPIST Assessment Noted Time PHQ-9 Depression Total Score: 0 08/28/20 20 11:08 AM SKIN CARE THERAPIST documented as of this encounter Care Teams Stations Superintendent Relationship Specialty Start Date End Date Andrew Dawson MD [address] [address] PCP - General Family Medicine 11/08/16 01/29/21 Vinicio Dinero MD [address] [place] [address] PCP - General Internal Medicine 01/30/21 07/26/21 Marisa Carcamo [facility] [address] [place] [address] PCP - General Physician Drainage Inspector 07/27/21 12/25/24 Marisa Carcamo, PAC [address] [place] [address] Physician Drainage Inspector Physician Drainage Inspector 01/30/21 documented as of this encounter
--- OUTSIDE RECORDS SUMMARY | 2025-01-03 12:56 | XMS_ITS | Encounter Summary ---
Author Organization [facility] Address [address] [place] [address] Phone Care Team Providers Care Groutman Name Role Phone Andrew Dawson MD Primary Care Provider Vinicio Dinero MD Primary Care Provider [phone] Marisa Carcamo PAC Unavailable Marisa Carcamo PAC Primary Care Pro vider Reason for Visit * Reason Onset Date Comments Medication Management 09/17/2020 Encounter Details Date Type Department Care Team (Late st Contact Info) Description 09/17/2020 Telephone [facility] [address] [place] [address] Andrew Dawson MD [address] [address] Medication Management Social History Tobacco [...] COVID-19? No / Unsure 08/28/2020 10:46 AM BRIEF WRITER documented as of this encounter Miscellaneous Notes * Telephone Encounter - Andrew Dawson MD - 09/17/2020 11:44 AM CST no F WRITER * Telephone Encounter - Senia Hernandez RN - 09/17/2020 11:22 AM BRIEF WRITER Pt is calling back - States he [...] that either he or his sister will picker packer, but he did not go last week on to pick it up. States his friend just last night and is anxious. Dr. Dawson, would you be agreeable to sending in a few tabs for him? Next fill is due in one week, on 09/24. F WRITER * Telephone Encounter - Andrew Dawson MD - 09/17/2020 10:12 AM CST Not going to fill F WRITER * Telephone Encounter - Zahira Santiago RN - 09/17/2020 9:59 AM BRIEF WRITER Received call from Cheri at [facility] pharmacy who states patient called them [...] provider to advise on how to proceed. F WRITER documented in this encounter Plan of Treatment Not on file documented as of this encounter Visit Diagnoses Not on filedocumented in this encounter Additional Health Concerns Infection Onset Date Last Indicated Resolved Time COVID - 19 08/02/2021 08/02/2021 08/22/2021 12:1 6 AM BRIEF WRITER COVID - 19 11/03/2021 11/03/2021 11/23/2021 12:1 6 AM BRIEF WRITER Assessment Noted Time PHQ-9 Depression Total Score: 0 08/28/20 11:08 AM BRIEF WRITER documented as of this encounter Care Teams Groutman Relationship Specialty Start Date End Date Andrew Dawson MD #[address] [address] PCP - General Family Medicine 11/08/16 01/29/21 Vinicio Dinero MD [address] [place] [address] PCP - General Internal Medicine 01/30/21 07/26/21 Marisa Carcamo, FOREST [address] [place] [address] PCP - General Physician Public Interviewer 07/27/21 12/25/24 Marisa Carcamo PAC [address] [place] [address] Physician Public Interviewer Physician Public Interviewer 01/30/21 documented as of this encounter
--- OUTSIDE RECORDS SUMMARY | 2025-01-03 12:56 | XMS_ITS | Encounter Summary ---
Author Organization [facility] Address [address] [place] [address] Phone Care Team Providers Care Supervisor Pipeline Maintenance Name Role Phone Andrew Dawson MD Primary Care Provider [phone] Vinicio Dinero MD Primary Care Provider [phone] Marisa Carcamo PAC Unavailable Marisa Carcamo PAC Primary Care Pro vider Reason for Visit * Reason Comments Medication Refill Encounter Details Date Type Department Care Team (Late st Contact Info) Description 10/20/2020 Refill [facility] [address] [place] [address] Andrew Dawson MD [address] [address] Medication Refill Social History Tobacco Use Types [...] COVID-19? No / Unsure 10/17/2020 2:19 PM ANIMATION ARTIST documented as of this encounter Miscellaneous Notes [...] Recent Outpatient Visits 1 month ago Anxiety [facility] - Sera William APN, GROOMING ASSISTANT 5 months ago Chronic atrial fibrillation (HCC) [facility] - Andrew Lopez MD 6 months ago Chronic atrial fibrillation (HCC) [facility] - Sera William APN, GROOMING ASSISTANT 6 months ago Tachycardia [facility] - Sera William APN, GROOMING ASSISTANT 7 months ago Chronic bilateral low back pain without sciatica [facility] - Andrew Lopez MD Upcoming Appointments COMMUNICATION INSTRUCTOR - Recent and Past Visits Recent Visits Date Type Provider Dept 08/28/20 Office Visit Sera Spring APN, GROOMING ASSISTANT [facility] 05/12/20 Office Visit Andrew Dawson MD [facility] 04/17/20 Office Visit Sera Spring APN, JOY [facility] 04/15/20 Office Visit Sera Spring APN, GROOMING ASSISTANT [facility] 03/12/20 Office Visit Andrew Dawson MD [facility] 01/08/20 Telemedicine Andrew Dawson MD [facility] 12/31/19 Telemedicine Andrew Dawson MD [facility] 10/09/19 Office Visit Sera Spring APN, [facility] 09/02/19 Office Visit [facility] MD [facility] 08/26/19 Office Visit Sánchez Jenkins APN, GROOMING ASSISTANT [facility] Showing recent visits within past 460 days with a meds authorizing provider and meeting all other requirements Future Appointments No visits were found meeting these conditions. Showing future appointments within next 90 days with a meds authorizing provider and meeting all other requirements ATION ARTIST * Telephone Encounter - Deb Valente - [...] a two week supply at a time ATION ARTIST documented in this encounter Plan of Treatment Not on file documented as of this encounter Visit Diagnoses Diagnosis Anxiety Anxiety state, unspecified documented in this encounter Additional Health Concerns Infection Onset Date Last Indicated Resolved Time COVID - 19 08/02/2021 08/02/2021 08/22/2021 12:1 6 AM ANIMATION ARTIST COVID - 19 11/03/2021 11/03/2021 11/23/2021 12:1 6 AM ANIMATION ARTIST Assessment Noted Time PHQ-9 Depression Total Score: 0 08/28/20 20 11:08 AM ANIMATION ARTIST documented as of this encounter Care Teams Supervisor Pipeline Maintenance Relationship Specialty Start Date End Date Andrew Dawson MD #[address] [address] PCP - General Family Medicine 11/08/16 01/29/21 Vinicio Dinero MD [address] [place] [address] PCP - General Internal Medicine 01/30/21 07/26/21 Marisa Carcamo, PAC [address] [place] [address] PCP - General Physician Sales Solutions Representative 07/27/21 12/25/24 Marisa Carcamo, PAC [address] [place] [address] Physician Sales Solutions Representative Physician Sales Solutions Representative 01/30/21 documented as of this encounter
--- OUTSIDE RECORDS SUMMARY | 2025-01-03 12:56 | XMS_ITS | Encounter Summary ---
Author Organization [facility] Address [address] [place] [address] Phone Care Team Providers Care Automobile Washer Steam Name Role Phone Andrew Dawson MD Primary Care Provider [phone] Vinicio Dinero MD Primary Care Provider [phone] Marisa Carcamo PAC Unavailable Marisa Carcamo PAC Primary Care Pro vider Reason for Visit * Reason Comments Medication Refill Encounter Details Date Type Department Care Team (Late st Contact Info) Description 08/26/2020 Refill [facility] [address] [place] [address] Andrew Dawson MD #[address] [address] Medication Refill Social History Tobacco Use Types [...] COVID-19? No / Unsure 08/28/2020 10:46 AM DIRECTOR APPAREL documented as of this encounter Miscellaneous Notes * Telephone Encounter - Eloy Felder - 08/26/2020 3:09 PM CST Pt called and I advised why med was refused. Called sister per comments to schedule appoitment.. Set up appt for 08-31-20 with LAUNDRY OPERATOR FINISHING 11:15 CTOR APPAREL CTOR APPAREL CTOR APPAREL * Telephone Encounter - Keerthi Moore RN [...] 3 months ago Chronic atrial fibrillation (HCC) [facility] - Andrew Lopez MD 4 months ago Chronic atrial fibrillation (HCC) [facility] - Sera William APN, MARKETING SPECIALIST 4 months ago Tachycardia [facility] - Sera William APN, MARKETING SPECIALIST 5 months ago Chronic bilateral low back pain without sciatica [facility] - Andrew Lopez MD 7 months ago Liver lesion [facility] Andrew Lopez MD Upcoming Appointments DITCH WORKER - Recent and Past Visits Recent Visits Date Type Provider Dept 05/12/20 Office Visit Andrew Dawson MD [facility] 04/17/20 Office Visit Sera Spring APN, MARKETING SPECIALIST [facility] 04/15/20 Office Visit Sera Spring APN, MARKETING SPECIALIST [facility] 03/12/20 Office Visit Andrew Dawson MD [facility] 01/08/20 Telemedicine Andrew Dawson MD [facility] 12/31/19 Telemedicine Andrew Dawson MD [facility] 10/09/19 Office Visit Sera Spring APN, MARKETING SPECIALIST [facility] 09/02/19 Office Visit Andrew Dawson MD [facility] 08/26/19 Office Visit Sánchez Jenkins APN, MARKETING SPECIALIST [facility]19 [facility] Visit [facility] Showing recent visits within past 460 days with a meds authorizing provider and meeting all other requirements Future Appointments No visits were found meeting these conditions. Showing future appointments within next 90 days with a meds authorizing provider and meeting all other requirements CTOR APPAREL documented in this encounter Plan of Treatment Not on file documented as of this encounter Visit Diagnoses Not on filedocumented in this encounter Additional Health Concerns Infection Onset Date Last Indicated Resolved Time COVID - 19 08/02/2021 08/02/2021 08/22/2021 12:1 6 AM DIRECTOR APPAREL COVID - 19 11/03/2021 11/03/2021 11/23/2021 12:1 6 AM DIRECTOR APPAREL Assessment Noted Time PHQ-9 Depression Total Score: 0 03/12/20 12:31 PM CDT documented as of this encounter Care Teams Automobile Washer Steam Relationship Specialty Start Date End Date Andrew Dawson MD #[address] [address] PCP - General Family Medicine 11/08/16 01/29/21 Vinicio Dinero MD [address] [place] [address] PCP - General Internal Medicine 01/30/21 07/26/21 Marisa Carcamo, PAC [address] [place] [address] PCP - General Physician Nail Mill Worker 07/27/21 12/25/24 Marisa Carcamo, PAC [address] [place] [address] Physician Nail Mill Worker Physician Nail Mill Worker 01/30/21 documented as of this encounter
--- OUTSIDE RECORDS SUMMARY | 2025-01-03 12:56 | XMS_ITS | Encounter Summary ---
Author Organization [facility] Address [address] [place] [address] Phone Care Team Providers Care Classification And Treatment Director Name Role Phone Andrew Dawsno MD Primary Care Provider [phone] Vinicio Dinero MD Primary Care Provider [phone] Marisa Carcamo PAC Unavailable Marisa Carcamo PAC Primary Care Pro vider Reason for Visit * Reason Comments Medication Refill Encounter Details Date Type Department Care Team (Late st Contact Info) Description 09/09/2020 Refill [facility] [address] [place] [id number] Sera Spring APRN, JOCKEY AGENT #[address] [address] Medication Refill Social History Tobacco [...] COVID-19? No / Unsure 08/28/2020 10:46 AM REGIONAL BUSINESS DEVELOPMENT MANAGER documented as of this encounter Miscellaneous Notes * Telephone Encounter - Andrew Dawson MD - 09/10/2020 8:42 AM CST Prescription pending signature ONAL BUSINESS DEVELOPMENT MANAGER * Telephone Encounter - Keerthi Moore [...] Recent Outpatient Visits 1 week ago Anxiety [facility] - Sera William APN, JOCKEY AGENT 4 months ago Chronic atrial fibrillation (HCC) [facility] - Andrew Lopez MD 4 months ago Chronic atrial fibrillation (HCC) [facility] - Sera William APN, JOCKEY AGENT 4 months ago Tachycardia [facility] - Sera William APN, JOCKEY AGENT 6 months ago Chronic bilateral low back pain without sciatica [facility] - Andrew Lopez MD Upcoming Appointments BIOTECHNOLOGIST - Recent and Past Visits Recent Visits Date Type Provider Dept 08/28/20 Office Visit Sera Spring APN, CNP [facility] 05/12/20 Office Visit Andrew Dawson MD [facility] 04/17/20 Office Visit Sera Spring APN, CNP [facility] 04/15/20 Office Visit Sera Spring APN, JOCKEY AGENT [facility] 03/12/20 Office Visit Andrew [facility] MD [facility] 01/08/20 Telemedicine Andrew Dawson MD [facility] 12/31/19 Telemedicine Andrew Dawson MD [facility] 10/09/19 Office Visit Sera Spring APN, JOCKEY AGENT [facility] Office Visit Andrew Dawson MD [facility] 08/26/19 Office Visit Sánchez Jenkins APN, JOCKEY AGENT [facility] Showing recent visits within past 460 days with a meds authorizing provider and meeting all other requirements Future Appointments No visits were found meeting these conditions. Showing future appointments within next 90 days with a meds authorizing provider and meeting all other requirements ONAL BUSINESS DEVELOPMENT MANAGER documented in this encounter Plan of Treatment Not on file documented as of this encounter Visit Diagnoses Diagnosis Anxiety Anxiety state, unspecified documented in this encounter Additional Health Concerns Infection Onset Date Last Indicated Resolved Time COVID - 19 08/02/2021 08/02/2021 08/22/2021 12:1 6 AM REGIONAL BUSINESS DEVELOPMENT MANAGER COVID - 19 11/03/2021 11/03/2021 11/23/2021 12:1 6 AM REGIONAL BUSINESS DEVELOPMENT MANAGER Assessment Noted Time PHQ-9 Depression Total Score: 0 08/28/20 11:08 AM REGIONAL BUSINESS DEVELOPMENT MANAGER documented as of this encounter Care Teams Classification And Treatment Director Relationship Specialty Start Date End Date Andrew Dawson MD #[address] [address] PCP - General Family Medicine 11/08/16 01/29/21 Vinicio Dinero MD [address] [place] [address] PCP - General Internal Medicine 01/30/21 07/26/21 Marisa Carcamo [facility] [address] [place] [address] PCP - General Physician Public Health Doctor 07/27/21 12/25/24 Marisa Carcamo, FOREST [address] [place] [address] Physician Public Health Doctor Physician Public Health Doctor 01/30/21 documented as of this encounter
--- OUTSIDE RECORDS SUMMARY | 2025-01-03 12:56 | XMS_ITS | Encounter Summary ---
Author Organization [facility] Address [address] [place] [address] Phone Care Team Providers Care Rag Grader Name Role Phone Andrew Dawson MD Primary Care Provider [phone] Vinicio Dinero MD Primary Care Provider [phone] Marisa Carcamo PAC Unavailable Marisa Carcamo PAC Primary Care Pro vider Reason for Visit * Reason Onset Date Comments Medication Management 10/16/2020 transfer t o triage - see note Breathing Problem 10/16/2020 difficulties b reathing Altered Mental Status 10/16/2020 confusion Encounter Details Date Type Department Care Team (Late st Contact Info) Description 10/16/2020 Nurse Triage [facility] [place] [address] [place] [address] Andrew Dawson MD [address] [address] Medication Management (transfer to triage - see [...] COVID-19? No / Unsure 10/17/2020 2:19 PM CHAIR UPHOLSTERER documented as of this encounter Miscellaneous Notes [...] PRD. PRD states: none. Routing to PCP. R UPHOLSTERER R UPHOLSTERER * Telephone Encounter - Kari Rose RN - 10/16/2020 2:53 PM CST Call placed to patient with this message. R UPHOLSTERER * Telephone Encounter - Andrew Dawson MD - 10/16/2020 9:06 AM CST Please call. No , I wont just order antibiotics. Go to ed to have yourself properly evaluated. R UPHOLSTERER * Telephone Encounter - Itzel Dailey RN - 10/16/2020 8:15 AM CST Felisa calling (PRD not in chart) Patient went to [facility] last Monday, 2 days ago Had [...] advise. Thank you Pharmacy and allergies verified. R UPHOLSTERER * Telephone Encounter - Damaris Fontaine - 10/16/2020 8:03 AM CST Felisa ( not on PRD) Call patient was in ER yesterday asking for an antibiotic for patient Transfer to triage line R UPHOLSTERER documented in this encounter Plan of Treatment Not on file documented as of this encounter Visit Diagnoses Not on filedocumented in this encounter Additional Health Concerns Infection Onset Date Last Indicated Resolved Time COVID - 19 08/02/2021 08/02/2021 08/22/2021 12:1 6 AM CHAIR UPHOLSTERER COVID - 19 11/03/2021 11/03/2021 11/23/2021 12:1 6 AM CHAIR UPHOLSTERER Assessment Noted Time PHQ-9 Depression Total Score: 0 08/28/20 20 11:08 AM CHAIR UPHOLSTERER documented as of this encounter Care Teams Rag Grader Relationship Specialty Start Date End Date Andrew Dawson MD [address] [address] PCP - General Family Medicine 11/08/16 01/29/21 Vinicio Dinero MD [address] [place] [address] PCP - General Internal Medicine 01/30/21 07/26/21 Marisa Carcamo, PAC [address] [place] [address] PCP - General Physician Storage Specialist 07/27/21 12/25/24 Marisa Carcamo, PAC [address] [place] [address] Physician Storage Specialist Physician Storage Specialist 01/30/21 documented as of this encounter
--- OUTSIDE RECORDS SUMMARY | 2025-01-03 12:56 | XMS_ITS | Encounter Summary ---
Author Organization [facility] Address [address] [place] [address] Phone Care Team Providers Care Blueprinting And Photocopy Supervisor Name Role Phone Andrew Dawson MD Primary Care Provider [phone] Vinicio Dinero MD Primary Care Provider [phone] Marisa Carcamo PAC Unavailable Marisa Carcamo PAC Primary Care Pro vider Reason for Visit * Reason Comments Medication Refill Encounter Details Date Type Department Care Team (Late st Contact Info) Description 07/29/2020 Refill [facility] [address] [place] [address] Andrew Dawson MD [address] [address] Medication Refill Social History Tobacco Use Types [...] AM CST Prescription approved. Please call in STRY ADVISER * Telephone Encounter - Kari Rose RN [...] 2 months ago Chronic atrial fibrillation (HCC) [facility] - Andrew Lopez MD 3 months ago Chronic atrial fibrillation (HCC) [facility] - Sera William APN, CNP 3 months ago Tachycardia [facility] - Sera William APN, SURVEY DIRECTOR 4 months ago Chronic bilateral low back pain without sciatica [facility] - Andrew Lopez MD 6 months ago Liver lesion [facility] - Andrew Lopez MD Upcoming Appointments Future Appointments In [address] MRI, [facility] BEAMER OPERATOR - Recent and Past Visits Recent Visits Date Type Provider Dept 05/12/20 Office Visit Andrew Dawson MD [facility] 04/17/20 Office Visit Sera Spring APN, CNP [facility] 04/15/20 Office Visit Sera Spring APN, CNP [facility] 03/12/20 Office Visit Andrew Dawson MD [facility] 01/08/20 Telemedicine Andrew Dawson MD [facility] 12/31/19 Telemedicine Andrew Dawson MD [facility] 10/09/19 Office Visit Sera Spring APN, SURVEY DIRECTOR [facility] 09[facility]02/19 Office Visit Andrew Dawson MD [facility] 08/26/19 Office Visit Sánchez Jenkins APN, SURVEY DIRECTOR [facility] 08/20/19 Office Visit Andrew Dawson MD [facility] Showing recent visits within past 460 days with a meds authorizing provider and meeting all other requirements Future Appointments No visits were found meeting these conditions. Showing future appointments within next 90 days with a meds authorizing provider and meeting all other requirements STRY ADVISER documented in this encounter Plan of Treatment Not on file documented as of this encounter Visit Diagnoses Not on filedocumented in this encounter Additional Health Concerns Infection Onset Date Last Indicated Resolved Time COVID - 19 08/02/2021 08/02/2021 08/22/2021 12:1 6 AM FORESTRY ADVISER COVID - 19 11/03/2021 11/03/2021 11/23/2021 12:1 6 AM FORESTRY ADVISER Assessment Noted Time PHQ-9 Depression Total Score: 0 03/12/20 12:31 PM CDT documented as of this encounter Care Teams Blueprinting And Photocopy Supervisor Relationship Specialty Start Date End Date Andrew Dawson MD #[address] [address] PCP - General Family Medicine 11/08/16 01/29/21 Vinicio Dinero MD [address] [place] [address] PCP - General Internal Medicine 01/30/21 07/26/21 Marisa Carcamo PAC [address] [place] [address] PCP - General Physician Meatcutter 07/27/21 12/25/24 Marisa Carcamo, [facility] [address] [place] [address] Physician Meatcutter Physician Meatcutter 01/30/21 documented as of this encounter
--- OUTSIDE RECORDS SUMMARY | 2025-01-03 12:56 | XMS_ITS | Encounter Summary ---
Author Organization [facility] Address [address] [place] [address] Phone Care Team Providers Care Senior Publications Specialist Name Role Phone Andrew Dawson MD Primary Care Provider Vinicio Dinero MD Primary Care Provider [phone] Marisa Carcamo PAC Unavailable Marisa Carcamo PAC Primary Care Pro vider Reason for Visit * Reason Comments Medication Refill Encounter Details Date Type Department Care Team (Late st Contact Info) Description 09/14/2020 Refill [facility] #2 [place] [address] Andrew Dawson MD #[address] [address] Medication Refill Social History Tobacco Use Types [...] COVID-19? No / Unsure 08/28/2020 10:46 AM MORGUE TECHNICIAN documented as of this encounter Miscellaneous Notes [...] Receipt confirmed by pharmacy (09/10/2020 ??8:42 AM MORGUE TECHNICIAN) ALPRAZolam (XANAX) 0.5 MG Tablet [[id number]] 0842 UE TECHNICIAN documented in this encounter Plan of Treatment Not on file documented as of this encounter Visit Diagnoses Diagnosis Anxiety Anxiety state, unspecified documented in this encounter Additional Health Concerns Infection Onset Date Last Indicated Resolved Time COVID - 19 08/02/2021 08/02/2021 08/22/2021 12:1 6 AM MORGUE TECHNICIAN COVID - 19 11/03/2021 11/03/2021 11/23/2021 12:1 6 AM MORGUE TECHNICIAN Assessment Noted Time PHQ-9 Depression Total Score: 0 08/28/20 11:08 AM MORGUE TECHNICIAN documented as of this encounter Care Teams Senior Publications Specialist Relationship Specialty Start Date End Date Andrew Dawson MD [address] [address] PCP - General Family Medicine 11/08/16 01/29/21 Vinicio Dinero MD [address] [place] [address] PCP - General Internal Medicine 01/30/21 07/26/21 Marisa Carcamo, PAC [address] [place] [address] PCP - General Physician Freight Solicitor 07/27/21 12/25/24 Marisa Carcamo, PAC [address] [place] [address] Physician Freight Solicitor Physician Freight Solicitor 01/30/21 documented as of this encounter
--- OUTSIDE RECORDS SUMMARY | 2025-01-03 12:56 | XMS_ITS | Encounter Summary ---
Author Organization [facility] Address [address] [place] [address] Phone Care Team Providers Care Ply Cutter Name Role Phone Marisa Carcamo PAC Primary Care Pro vider Reason for Visit * Reason Comments Medication Refill Encounter Details Date Type Department Care Team (Late st Contact Info) Description 09/23/2021 Refill [facility] - [place] [address] [place] [address] Marisa Carcamo, [facility] [address] [facility] [place] [address] Medication Refill Social History Tobacco [...] COVID-19? No / Unsure 08/31/2021 9:53 AM INSTALLER TECHNICIAN documented as of this encounter Miscellaneous Notes * Telephone Encounter - Zahira Butt RN - 09/23/2021 12:48 PM INSTALLER TECHNICIAN Requested Prescriptions Pending Prescriptions Disp Refills busPIRone [...] with Buspirone for at least 6 months ALLER TECHNICIAN documented in this encounter Plan of Treatment Not on file documented as of this encounter Visit Diagnoses Diagnosis Anxiety Anxiety state, unspecified documented in this encounter Additional Health Concerns Infection Onset Date Last Indicated Resolved Time COVID - 19 11/03/2021 11/03/2021 11/23/2021 12:1 6 AM INSTALLER TECHNICIAN Assessment Noted Time PHQ-9 Depression Total Score: 11 021 3:00 PM INSTALLER TECHNICIAN documented as of this encounter Care Teams Ply Cutter Relationship Specialty Start Date End Date Marisa Carcamo PAC [address] [place] [address] PCP - General Physician Assistant Store Leader 07/27/21 12/25/24 documented as of this encounter
--- OUTSIDE RECORDS SUMMARY | 2025-01-03 12:56 | XMS_ITS | Encounter Summary ---
Author Organization [facility] Address [address] [place] [address] Phone Care Team Providers Care Geophysical Laboratory Chief Name Role Phone Andrew Dawson MD Primary Care Provider Vinicio Dinero MD Primary Care Provider [phone] Marisa Carcamo PAC Unavailable Marisa Carcamo PAC Primary Care Pro vider Reason for Visit * Reason Comments Medication Refill Encounter Details Date Type Department Care Team (Late st Contact Info) Description 01/19/2021 Refill [facility] #2 [place] [address] Andrew Dawson MD #[address] [address] Medication Refill Social History Tobacco Use Types [...] Recent Outpatient Visits 1 week ago Anxiety [facility] - Andrew Lopez MD 4 weeks ago Anxiety [facility] - Andrew Lopez MD 4 months ago Anxiety [facility] - Sera William APN, CNP 8 months ago Chronic atrial fibrillation (HCC) [facility] Andrew Lopez MD 9 months ago Chronic atrial fibrillation (HCC) [facility] - Sera William APN, JOY Upcoming Appointments MOBILE EQUIPMENT OPERATOR - Recent and Past Visits Recent [...] [facility] 12/31/19 Telemedicine Andrew Dawson MD [facility] Showing recent visits within past [...] - 08/02/2021 08/02/2021 08/22/2021 12:1 6 AM BUSINESS PLANNER COVID - 19 11/03/2021 11/03/2021 11/23/2021 12:1 6 AM BUSINESS PLANNER Assessment Noted Time PHQ-9 Depression Total Score: 0 08/28/20 11:08 AM BUSINESS PLANNER documented as of this encounter Care Teams Geophysical Laboratory Chief Relationship Specialty Start Date End Date Andrew Dawson MD [address] [address] PCP - General Family Medicine 11/08/16 01/29/21 Vinicio Dinero MD [address] [place] [address] PCP - General Internal Medicine 01/30/21 07/26/21 Marisa Carcamo, PAC [address] [place] [address] PCP - General Physician Janitor Head 07/27/21 12/25/24 Marisa Carcamo, PAC [address] [place] [address] Physician Janitor Head Physician Janitor Head 01/30/21 documented as of this encounter
--- OUTSIDE RECORDS SUMMARY | 2025-01-03 12:56 | XMS_ITS | Encounter Summary ---
Author Organization [facility] Address [address] [place] [address] Phone Care Team Providers Care Clearing Supervisor Name Role Phone Andrew Dawson MD Primary Care Provider [phone] Vinicio Dinero MD Primary Care Provider [phone] Marisa Carcamo PAC Unavailable Marisa Carcamo PAC Primary Care Pro vider Reason for Visit * Reason Onset Date Comments Medication Refill Medication Refill 11/13/2020 Encounter Details Date Type Department Care Team (Late st Contact Info) Description 11/13/2020 [facility] [address] [place] [address] Andrew Dawson MD [address] [address] Medication Refill; Medication Refill Social [...] COVID-19? No / Unsure 10/17/2020 2:19 PM AIRCRAFT LAYOUT WORKER documented as of this encounter Plan of Treatment Not on file documented as of this encounter Visit Diagnoses Diagnosis Anxiety Anxiety state, unspecified documented in this encounter Additional Health Concerns Infection Onset Date Last Indicated Resolved Time COVID - 19 08/02/2021 08/02/2021 08/22/2021 12:1 6 AM AIRCRAFT LAYOUT WORKER COVID - 19 11/03/2021 11/03/2021 11/23/2021 12:1 6 AM AIRCRAFT LAYOUT WORKER Assessment Noted Time PHQ-9 Depression Total Score: 0 08/28/20 11:08 AM AIRCRAFT LAYOUT WORKER documented as of this encounter Care Teams Clearing Supervisor Relationship Specialty Start Date End Date Andrew Dawson MD #[address] [address] PCP - General Family Medicine 11/08/16 01/29/21 Vinicio Dinero MD [address] [place] [address] PCP - General Internal Medicine 01/30/21 07/26/21 Marisa Carcamo, [facility] [address] [place] [address] PCP - General Physician Maintenance Controller 07/27/21 12/25/24 Marisa Carcamo, [facility] [address] [place] [address] Physician Maintenance Controller Physician Maintenance Controller 01/30/21 documented as of this encounter
--- OUTSIDE RECORDS SUMMARY | 2025-01-03 12:56 | XMS_ITS | Encounter Summary ---
Author Organization [facility] Address [address] [place] [address] Phone Care Team Providers Care Regulatory Affairs Strategy Specialist Name Role Phone Andrew Dawson MD Primary Care Provider Vinicio Dinero MD Primary Care Provider [phone] Marisa Carcamo PAC Unavailable Marisa Carcamo PAC Primary Care Pro vider Reason for Visit * Reason Comments Medication Refill Encounter Details Date Type Department Care Team (Late st Contact Info) Description 09/16/2020 Refill [facility] #2 [place] [address] Andrew Dawson MD #[address] [address] Medication Refill Social History Tobacco Use Types [...] COVID-19? No / Unsure 08/28/2020 10:46 AM KERRICK KLEANER OPERATOR documented as of this encounter Miscellaneous [...] Receipt confirmed by pharmacy (09/10/2020 ??8:42 AM KERRICK KLEANER OPERATOR) ALPRAZolam (XANAX) 0.5 MG Tablet [[id number]] 0842 duplicate ICK KLEANER OPERATOR documented in this encounter Plan of Treatment Not on file documented as of this encounter Visit Diagnoses Diagnosis Anxiety Anxiety state, unspecified documented in this encounter Additional Health Concerns Infection Onset Date Last Indicated Resolved Time COVID - 19 08/02/2021 08/02/2021 08/22/2021 12:1 6 AM KERRICK KLEANER OPERATOR COVID - 19 11/03/2021 11/03/2021 11/23/2021 12:1 6 AM KERRICK KLEANER OPERATOR Assessment Noted Time PHQ-9 Depression Total Score: 0 08/28/20 11:08 AM KERRICK KLEANER OPERATOR documented as of this encounter Care Teams Regulatory Affairs Strategy Specialist Relationship Specialty Start Date End Date Andrew Dawson MD #[address] [address] PCP - General Family Medicine 11/08/16 01/29/21 Vinicio Dinero MD [address] [place] [address] PCP - General Internal Medicine 01/30/21 07/26/21 Marisa Carcamo, PAC [address] [place] [address] PCP - General Physician Acquisitions Editor 07/27/21 12/25/24 Marisa Carcamo, PAC [address] [place] [address] Physician Acquisitions Editor Physician Acquisitions Editor 01/30/21 documented as of this encounter
--- OUTSIDE RECORDS SUMMARY | 2025-01-03 12:56 | XMS_ITS | Encounter Summary ---
Author Organization [facility] Address [address] [place] [address] Phone Care Team Providers Care Fourth Officer Name Role Phone Andrew Dawson MD Primary Care Provider Vinicio Dinero MD Primary Care Provider [phone] Marisa Carcamo PAC Unavailable Marisa Carcamo PAC Primary Care Pro vider Reason for Visit * Reason Comments Medication Refill Encounter Details Date Type Department Care Team (Late st Contact Info) Description 10/03/2020 [facility]ill [facility] [address] [place] [address] Andrew Dawson MD [address] [address] Medication Refill Social History Tobacco Use Types [...] AM CST Prescription approved. Please call in CATESSEN SLICER * Telephone Encounter - Gabby Coto RN [...] Recent Outpatient Visits 1 month ago Anxiety [facility] - Sera William APN, PIG MACHINE CRANE OPERATOR 4 months ago Chronic atrial fibrillation (HCC) [facility] - Andrew Lopez MD 5 months ago Chronic atrial fibrillation (HCC) [facility] - Sera William APN, PIG MACHINE CRANE OPERATOR 5 months ago Tachycardia [facility] - Sera William CAPPING MACHINE OPERATOR, PIG MACHINE CRANE OPERATOR 6 months ago Chronic bilateral low back pain without sciatica [facility] Andrew Lopez MD Upcoming Appointments LEGAL FINANCIAL SPECIALIST - Recent and Past Visits Recent Visits Date Type Provider Dept 08/28/20 Office Visit Sera Spring APN, PIG MACHINE CRANE OPERATOR [facility] 05/12/20 Office Visit Andrew Dawson MD [facility] 04/17/20 Office Visit Sera Spring APN, CNP [facility] 04/15/20 Office Visit Sera Spring APN, PIG MACHINE CRANE OPERATOR [facility] 03/12/20 Office Visit Andrew Dawson MD [facility] 01/08/20 Telemedicine Andrew Dawson MD [facility] 12/31/19 Telemedicine Andrew Dawson MD [facility] 10/09/19 Office Visit Sera Spring APN, PIG MACHINE CRANE OPERATOR [facility] 09/02/19 Office Visit Andrew Dawson MD [facility] 08/26/19 Office Visit Sánchez Jenkins APN, PIG MACHINE CRANE OPERATOR [facility] Showing recent visits within past 460 days with a meds authorizing provider and meeting all other requirements Future Appointments No visits were found meeting these conditions. Showing future appointments within next 90 days with a meds authorizing provider and meeting all other requirements CATESSEN SLICER documented in this encounter Plan of Treatment Not on file documented as of this encounter Visit Diagnoses Not on filedocumented in this encounter Additional Health Concerns Infection Onset Date Last Indicated Resolved Time COVID - 08/02/2021 08/02/2021 08/22/2021 12:1 6 AM DELICATESSEN SLICER COVID - 19 11/03/2021 11/03/2021 11/23/2021 12:1 6 AM DELICATESSEN SLICER Assessment Noted Time PHQ-9 Depression Total Score: 0 08/28/20 11:08 AM DELICATESSEN SLICER documented as of this encounter Care Teams Fourth Officer Relationship Specialty Start Date End Date Andrew Dawson MD #[address] [address] PCP - General Family Medicine 11/08/16 01/29/21 Vinicio Dinero MD [address] [place] [address] PCP - General Internal Medicine 01/30/21 07/26/21 Marisa Carcamo, [facility] [address] [place] [address] PCP - General Physician Belt Fixer 07/27/21 12/25/24 Marisa Carcamo, [facility] [address] [place] [address] Physician Belt Fixer Physician Belt Fixer 01/30/21 documented as of this encounter
--- OUTSIDE RECORDS SUMMARY | 2025-01-03 12:56 | XMS_ITS | Encounter Summary ---
Author Organization [facility] Address [address] [place] [address] Phone Care Team Providers Care Piano Teacher Name Role Phone Marisa Carcamo PAC Primary Care Pro vider Reason for Visit * Reason Comments Medication Refill Encounter Details Date Type Department Care Team (Late st Contact Info) Description 10/26/2021 Refill [facility] - [place] [address] [place] [address] Marisa Carcamo, PAC [address] [place] [address] Medication Refill Social History Tobacco [...] Dept 08/02/21 Office Visit [facility] Office Visit Marisa Carcamo PAC [facility] Showing recent visits within past 182 days and meeting all other requirements Future Appointments No visits were found meeting these conditions. Showing future appointments within next 90 days and meeting all other requirements Passed - Patient has established therapy with Buspirone for at least 6 months ER POISONER * Telephone Encounter - Keerthi Moore RN [...] Dept 08/02/21 Office Visit Marisa Carcamo PAC [facility]21 Office Visit Marisa Carcamo PAC [facility] Showing recent visits within past 182 days and meeting all other requirements Future Appointments No visits were found meeting these conditions. Showing future appointments within next 90 days and meeting all other requirements Passed - Patient has established therapy with Buspirone for at least 6 months ER POISONER documented in this encounter Plan of Treatment Scheduled Orders Name Type Priority Associated Diagnoses Orde r Schedule URINE DRUG SCREEN Lab Routine Anxiety Expected: 11/09/2021, Expires: 11/09/2022 documented as of this encounter Visit Diagnoses Diagnosis Anxiety- Primary Anxiety state, unspecified documented in this encounter Additional Health Concerns Infection Onset Date Last Indicated Resolved Time COVID - 19 11/03/2021 11/03/2021 11/23/2021 12:1 6 AM TIMBER POISONER Assessment Noted Time PHQ-9 Depression Total Score: 11 021 3:00 PM TIMBER POISONER documented as of this encounter Care Teams Piano Teacher Relationship Specialty Start Date End Date Marisa Carcamo PAC [address] [place] [address] PCP - General Physician Gravedigger 07/27/21 12/25/24 documented as of this encounter
--- OUTSIDE RECORDS SUMMARY | 2025-01-03 12:56 | XMS_ITS | Encounter Summary ---
Author Organization [facility] Address [address] [place] [address] Phone Care Team Providers Care Engine Inspector Name Role Phone Andrew Dawson MD Primary Care Provider [phone] Vinicio Dinero MD Primary Care Provider [phone] Marisa Carcamo PAC Unavailable Marisa Carcamo PAC Primary Care Pro vider Reason for Visit * Reason Comments Medication Refill Encounter Details Date Type Department Care Team (Late st Contact Info) Description 10/05/2020 Refill [facility] [address] [place] [address] Andrew Dawson MD [address] [address] Medication Refill Social History Tobacco Use Types [...] 10/06/2020 12:01 PM CST Prescription pending signature DUMPER * Telephone Encounter - Tatiana Em RN - 10/05/2020 4:26 PM CST Sent to PCP DUMPER * Telephone Encounter - Tatiana Em RN [...] Recent Outpatient Visits [address] [facility] MACHINE DYER 4 months ago Chronic atrial fibrillation (HCC) [facility] - Andrew Lopez MD 5 months ago Chronic atrial fibrillation (HCC) [facility] - Sera William APN, MACHINE DYER 5 months ago Tachycardia [facility] [place] APN, MACHINE DYER 6 months ago Chronic bilateral low back pain without sciatica [facility] Andrew Lindquist MD Upcoming Appointments FLOUR INSPECTOR - Recent and Past Visits Recent Visits Date Type Provider Dept 08/28/20 Office Visit Sera Spring APN, MACHINE DYER [facility] [place] 05/12/20 Office Visit Andrew Dawson MD [facility] 04/17/20 Office Visit Sera Spring APN, MACHINE DYER [facility] [place] 04/15/20 Office Visit Sera Spring APN, MACHINE DYER [facility] [place] 03/12/20 Office Visit Andrew Dawson MD [facility] [place] 01/08/20 Telemedicine Andrew Dawson MD [facility] 12/31/19 Telemedicine Andrew Dawson MD [facility] 10/09/19 Office Visit Sera Spring APN, MACHINE DYER [facility] [place] 09/02/19 Office Visit Andrew Dawson MD [facility] 08/26/19 Office Visit Sánchez Jenkins APN, MACHINE DYER [facility] Showing recent visits within past 460 days with a meds authorizing provider and meeting all other requirements Future Appointments No visits were found meeting these conditions. Showing future appointments within next 90 days with a meds authorizing provider and meeting all other requirements DUMPER documented in this encounter Plan of Treatment Not on file documented as of this encounter Visit Diagnoses Diagnosis Anxiety Anxiety state, unspecified documented in this encounter Additional Health Concerns Infection Onset Date Last Indicated Resolved Time COVID - 19 08/02/2021 08/02/2021 08/22/2021 12:1 6 AM SLAG DUMPER COVID - 19 11/03/2021 11/03/2021 11/23/2021 12:1 6 AM SLAG DUMPER Assessment Noted Time PHQ-9 Depression Total Score: 0 08/28/20 11:08 AM SLAG DUMPER documented as of this encounter Care Teams Engine Inspector Relationship Specialty Start Date End Date Andrew Dawson MD [address] [address] PCP - General Family Medicine 11/08/16 01/29/21 Vinicio Dinero MD [address] [place] [address] PCP - General Internal Medicine 01/30/21 07/26/21 Marisa Carcamo PAC [address] [place] [address] PCP - General Physician Health Insurance Sales Agent 07/27/21 12/25/24 Marisa Carcamo, PAC [address] [place] [address] Physician Health Insurance Sales Agent Physician Health Insurance Sales Agent 01/30/21 documented as of this encounter
--- OUTSIDE RECORDS SUMMARY | 2025-01-03 12:56 | XMS_ITS | Encounter Summary ---
Author Organization [facility] Address [address] [place] [address] Phone Care Team Providers Care Cost Control Specialist Name Role Phone Andrew Dawson MD Primary Care Provider [phone] Vinicio Dinero MD Primary Care Provider [phone] Marisa Carcamo PAC Unavailable Marisa Carcamo PAC Primary Care Pro vider Reason for Visit * Reason Comments Medication Refill Encounter Details Date Type Department Care Team (Late st Contact Info) Description 12/21/2020 Refill [facility]2 [place] [address] Andrew Dawson MD #[address] [address] Medication Refill Social History Tobacco Use Types [...] Recent Outpatient Visits 3 months ago Anxiety [facility] Sera William APN, ASSISTANT PROFESSOR OF SOCIOLOGY 7 months ago Chronic atrial fibrillation (HCC) [facility] - Andrew Lopez MD 8 months ago Chronic atrial fibrillation (HCC) [facility] Sera William APN ASSISTANT PROFESSOR OF SOCIOLOGY 8 months ago Tachycardia [facility] Sera William APN, ASSISTANT PROFESSOR OF SOCIOLOGY 9 months ago Chronic bilateral low back pain without sciatica [facility] - Andrew Lopez MD Upcoming Appointments SOFTWARE QUALITY ANALYST - Recent and Past Visits Recent Visits Date Type Provider Dept 08/28/20 Office Visit Sera Spring APN, ASSISTANT PROFESSOR OF SOCIOLOGY [facility] 05/12/20 Office Visit Andrew Dawson MD [facility] 04/17/20 Office Visit Sera Spring APN, ASSISTANT PROFESSOR OF SOCIOLOGY [facility] 04/15/20 Office Visit Sera Spring APN, ASSISTANT PROFESSOR OF SOCIOLOGY [facility] 03/12/20 Office Visit Andrew Dawson MD [facility] 01/08/20 Telemedicine Andrew Dawson MD [facility] 12/31/19 Telemedicine Andrew Dawson MD [facility] 10/09/19 Office Visit Sera Spring APN, ASSISTANT PROFESSOR OF SOCIOLOGY [facility] [place] Showing recent visits within past [...] 19 08/02/2021 08/02/2021 08/22/2021 12:1 6 AM PLATE GLASS INSTALLER HELPER COVID - 19 11/03/2021 11/03/2021 11/23/2021 12:1 6 AM PLATE GLASS INSTALLER HELPER Assessment Noted Time PHQ-9 Depression Total Score: 0 08/28/20 11:08 AM PLATE GLASS INSTALLER HELPER documented as of this encounter Care Teams Cost Control Specialist Relationship Specialty Start Date End Date Andrew Dawson MD #[address] [address] PCP - General Family Medicine 11/08/16 01/29/21 Vinicio Dinero MD [address] [place] [address] PCP - General Internal Medicine 01/30/21 07/26/21 Marisa Carcamo, PAC [address] [place] [address] PCP - General Physician Geographic Information System Analyst 07/27/21 12/25/24 Marisa Carcamo, PAC [address] [place] [address] Physician Geographic Information System Analyst Physician Geographic Information System Analyst 01/30/21 documented as of this encounter
--- OUTSIDE RECORDS SUMMARY | 2025-01-03 12:56 | XMS_ITS | Encounter Summary ---
Author Organization [facility] Address [address] [place] [address] Phone Care Team Providers Care Pit Shovel Operator Name Role Phone Andrew Dawson MD Primary Care Provider [phone] Vinicio Dinero MD Primary Care Provider [phone] Marisa Carcamo PAC Unavailable Marisa Carcamo PAC Primary Care Pro vider Reason for Visit * Reason Comments Medication Refill alprazolam Encounter Details Date Type Department Care Team (Late st Contact Info) Description 07/27/2020 Refill [facility] #2 [place] [address] Andrew Dawson MD #[address] [address] Medication Refill (alprazolam) Social History Tobacco Use [...] and approval. Thank you. GISEL Reynoso MA Oil Rigger - Medication Management ERING INSPECTOR * Telephone Encounter - Kari Rose [...] 2 months ago Chronic atrial fibrillation (HCC) [facility] - Andrew Lopez MD 3 months ago Chronic atrial fibrillation (HCC) [facility] Sera William APN GAME PROTECTOR 3 months ago Tachycardia [facility] - Sera William APN GAME PROTECTOR 4 months ago Chronic bilateral low back pain without sciatica [facility] Andrew Lopez MD 6 months ago Liver lesion [facility] Andrew Lopez MD Upcoming Appointments Future Appointments In [address] MRI, [facility] SWITCHBOARD MANAGER - Recent and Past Visits Recent Visits Date Type Provider Dept 05/12/20 Office Visit Andrew Dawson MD [facility] 04/17/20 Office Visit Sera Spring APN, JOY [facility] 04/15/20 Office Visit Sera Spring APN, [facility] 03/12/20 Office Visit Andrew Dawson MD [facility] 01/08/20 [facility]medicine [facility] 12/31/19 [facility]icine [facility] 10/09/19 Office Visit Sera Spring APN, GAME PROTECTOR [facility] 09/02/19 [facility] 08/26/19 Office Visit Sánchez Jenkins APN, GAME PROTECTOR [facility] 08/20/19 Office Visit Andrew Dawson MD [facility] Showing recent visits within past 460 days with a meds authorizing provider and meeting all other requirements Future Appointments No visits were found meeting these conditions. Showing future appointments within next 90 days with a meds authorizing provider and meeting all other requirements ERING INSPECTOR documented in this encounter Plan of Treatment Not on file documented as of this encounter Visit Diagnoses Not on filedocumented in this encounter Additional Health Concerns Infection Onset Date Last Indicated Resolved Time COVID - 19 08/02/2021 08/02/2021 08/22/2021 12:1 6 AM SOLDERING INSPECTOR COVID - 19 11/03/2021 11/03/2021 11/23/2021 12:1 6 AM SOLDERING INSPECTOR Assessment Noted Time PHQ-9 Depression Total Score: 0 03/12/20 12:31 PM CDT documented as of this encounter Care Teams Pit Shovel Operator Relationship Specialty Start Date End Date Andrew Dawson MD #[address] [address] PCP - General Family Medicine 11/08/16 01/29/21 Vinicio Dinero MD [address] [place] [address] PCP - General Internal Medicine 01/30/21 07/26/21 Marisa Carcamo PAC [address] [place] [address] PCP - General Physician Shanker Out 07/27/21 12/25/24 Marisa Carcamo, [facility] [address] [place] [address] Physician Shanker Out Physician Shanker Out 01/30/21 documented as of this encounter
--- OUTSIDE RECORDS SUMMARY | 2025-01-03 12:57 | XMS_ITS | Encounter Summary ---
Author Organization [facility] Address [address] [facility] [address] [place] [address] Care Team Providers Care Production Manager Name Role Phone Andrew Dawson MD Primary Care Provider [phone] Andrew Dawson MD Primary Care Provider Vinicio Dinero MD Primary Care Provider [phone] Mushtaq Blake MD Unavailable [phone] Miguel Ángel Sanchez MD Unavailable [phone] Monae Velasquez MD Primary Care Provider Emelyn Curtis MD Unavailable [phone] Heena Stephenson MD Unavailable [phone] Jeffery Bro MD Unavailable [phone] Anali Flores MD Unavailable [phone] Alessandro Dominguez NP Unavailable [phone] Luciano Rodriguez MD Unavailable Encounter Details Date Type Department Care Team (Late st Contact Info) Description 12/27/2016 Orders Only [facility] Provider, MD Sourav [address] [place] [address] Social History Tobacco Use Types Packs/Day Years Used Date Smoking Tobacco: Never Assessed Sex and Gender Information Value Date Recorded Sex Assigned at Not on file Legal 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 Gender Identity Not on file Sexual Orientation [...] as of this encounter Care Teams Production Manager Relationship Specialty Start Date End Date Andrew Dawson MD PCP - General Cardiology 12/10/18 10/23/19 Andrew Dawson MD [address] [address] PCP - General Family Medicine 10/24/19 10/19/21 Vinicio Dinero MD [address] [place] [address] PCP - General Internal Medicine 10/20/21 12/13/22 Monae Velasquez MD [address] [place] [address] PCP - General Family Practice 12/14/22 Mushtaq Blake MD [address] [place] [address] Medical Oncologist/Hematologi st Hematology and Oncology 09/09/22 Miguel Ángel Sanchez MD [address] [place] [address] Consulting Physician Radiation Oncology 12/09/22 Emelyn Curtis MD [address] DIV IM MEDICAL ONCOLOGY, [address]A, 7B, 7C [place] [address] Consulting Physician Medical Oncology 04/17/23 Heena Stephenson MD [address] [place] [address] Fellow General Surgery 04/17/23 Jeffery Bro MD [address] [facility] [address] [place] [address] Referring Physician Gastroenterology 05/16/23 Anali Flores MD [address] [facility] [address] [place] [address] Consulting Physician Cardiology 05/22/23 [place] [address] [place] [address] Nurse Practitioner Pain Management 05/22/23 [place] [address] [place] [address] Consulting Physician Interventional Radiology 03/14/24 documented as of this encounter
--- OUTSIDE RECORDS SUMMARY | 2025-01-03 12:57 | XMS_ITS | Encounter Summary ---
Author Organization [facility] Address [address] [place] [address] Phone Care Team Providers Care Clean Room Assembler Name Role Phone Andrew Dawson MD Primary Care Provider [phone] Vinicio Dinero MD Primary Care Provider [phone] Marisa Carcamo PAC Unavailable Marisa Carcamo PAC Primary Care Pro vider Reason for Visit * Reason Comments Medication Refill Encounter Details Date Type Department Care Team (Late st Contact Info) Description 05/28/2020 Refill [facility] #2 [place] [address] Andrew Dawson MD #[address] [address] Medication Refill Social History Tobacco Use Types [...] 19 08/02/2021 08/02/2021 08/22/2021 12:1 6 AM RODEO CLOWN COVID - 19 11/03/2021 11/03/2021 11/23/2021 12:1 6 AM RODEO CLOWN Assessment Noted Time PHQ-9 Depression Total Score: 0 03/12/20 20 12:31 PM CDT documented as of this encounter Care Teams Clean Room Assembler Relationship Specialty Start Date End Date Andrew Dawson MD #[address] [address] PCP - General Family Medicine 11/08/16 01/29/21 Vinicio Dinero MD [address] [place] [address] PCP - General Internal Medicine 01/30/21 07/26/21 Marisa Carcamo, PAC [address] [place] [address] PCP - General Physician Hematology Oncology Consultant 07/27/21 12/25/24 Marisa Carcamo, PAC [address] [place] [address] Physician Hematology Oncology Consultant Physician Hematology Oncology Consultant 01/30/21 documented as of this encounter
--- OUTSIDE RECORDS SUMMARY | 2025-01-03 12:57 | XMS_ITS | Encounter Summary ---
Author Organization [facility] Address [address] [place] [address] Care Team Providers Care Biology Adjunct Instructor Name Role Phone Andrew Dawson MD Primary Care Provider [phone] MD Unavailable [phone] Maddi Cantrell DO Primary Care Provider [phone] MD Unavailable [phone] Andrew Dawson MD Primary Care Provider [phone] Vinicio Dinero MD Primary Care Provider [phone] Encounter Details Date Type Department Care Team (Late st Contact Info) Description 08/13/2018 Telephone [facility] [address] [facility] [address] [place] [address] Andrew Dawson MD [address] [place] [address] [address] [place] [address] Social History Tobacco Use Types [...] documented as of this encounter Care Teams Biology Adjunct Instructor Relationship Specialty Start Date End Date Andrew Dawson MD PCP - General 04/23/18 08/27/18 Maddi Cantrell DO PCP - General Internal Medicine 08/28/18 09/10/18 Andrew Dawson MD PCP - General 09/11/18 12/27/21 Vinicio Dinero MD [address] [place] [address] [address] PCP - General 12/28/[address] MD Resident - PCP Student Resident 08/27/[address] MD Student Resident 08/28/18 documented as of this encounter
--- OUTSIDE RECORDS SUMMARY | 2025-01-03 12:57 | XMS_ITS | Encounter Summary ---
Author Organization [facility] Address [address] [place] [address] Phone Care Team Providers Care Glass Designer Name Role Phone Marisa Carcamo PAC Primary Care Pro vider Reason for Visit * Reason Comments Medication Refill Encounter Details Date Type Department Care Team (Late st Contact Info) Description 02/05/2023 Refill [facility] - [place] [address] [place] [address] Marisa Carcamo, [facility] [address] [place] [address] Medication Refill Social History Tobacco [...] Depression Total Score: 11 021 3:00 PM OPERATIONS EXAMINER documented as of this encounter Care Teams Glass Designer Relationship Specialty Start Date End Date Marisa Carcamo PAC [address] [place] [address] PCP - General Physician Traffic Director 07/27/21 12/25/24 documented as of this encounter
--- OUTSIDE RECORDS SUMMARY | 2025-01-03 12:57 | XMS_ITS | Encounter Summary ---
Author Organization [facility] Address [address] [place] [address] Phone Care Team Providers Care Hanger Off Name Role Phone Marisa Carcamo PAC Primary Care Pro vider Reason for Visit * Reason Comments Medication Refill Encounter Details Date Type Department Care Team (Late st Contact Info) Description 11/14/2022 Refill [facility] - [place] [address] [place] [address] Marisa Carcamo, [facility] [address] [place] [address] Medication Refill Social History Tobacco [...] with SSRI for at least 6 months GRADER OPERATOR documented in this encounter Plan of Treatment Not on file documented as of this encounter Visit Diagnoses Not on filedocumented in this encounter Additional Health Concerns Assessment Noted Time PHQ-9 Depression Total Score: 11 021 3:00 PM FORM GRADER OPERATOR documented as of this encounter Care Teams Hanger Off Relationship Specialty Start Date End Date Marisa Carcamo PAC [address] [place] [address] PCP - General Physician Corporate Banking Officer 07/27/21 12/25/24 documented as of this encounter
--- OUTSIDE RECORDS SUMMARY | 2025-01-03 12:57 | XMS_ITS | Encounter Summary ---
Author Organization [facility] Address [address] [place] [address] Phone Care Team Providers Care Self Propelled Mining Machine Operator Name Role Phone Marisa Carcamo Jerrica PAC Primary Care Pro vider Reason for Visit * Reason Comments Medication Refill Encounter Details Date Type Department Care Team (Late st Contact Info) Description 08/01/2021 Refill [facility] [address] [place], [place] [id number] Andrew Dawson MD #[address] [id number] Medication Refill Social History Tobacco Use Types [...] COVID-19? No / Unsure 08/02/2021 3:06 PM QUALITY ASSURANCE COACH documented as of this encounter Miscellaneous Notes [...] Oyster Shell Calcium-Vit D) 500-125 MG-UNIT Tablet [[id number]] 8 Status: Active Ordering user: Andrew Dawson MD 12/31/20858 Authorized by: Andrew Dawson MD Frequency: Daily 12/31/20 - Until Discontinued Released by: Andrew Dawson MD 12/31/20858 Pharmacy [id number] Original Rx was discontinued on 12/23/[address] Dawson. The above medication is what patient should betaking per medication list. ITY ASSURANCE COACH documented in this encounter Plan of Treatment Not on file documented as of this encounter Visit Diagnoses Not on filedocumented in this encounter Additional Health Concerns Infection Onset Date Last Indicated Resolved Time COVID - 19 08/02/2021 08/02/2021 08/22/2021 12:1 6 AM QUALITY ASSURANCE COACH COVID - 19 11/03/2021 11/03/2021 11/23/2021 12:1 6 AM QUALITY ASSURANCE COACH Assessment Noted Time PHQ-9 Depression Total Score: 0 06/04/20 12:00 PM CDT documented as of this encounter Care Teams Self Propelled Mining Machine Operator Relationship Specialty Start Date End Date Marisa Carcamo PAC [address] [place] [address] PCP - General Physician Assistive Technology Trainer 07/27/21 12/25/24 documented as of this encounter
--- OUTSIDE RECORDS SUMMARY | 2025-01-03 12:57 | XMS_ITS | Encounter Summary ---
Author Organization [facility] Address [address] [place] [address] Care Team Providers Care Button Maker Name Role Phone Ravinder Street MD Unavailable [phone] Maddi Cantrell DO Primary Care Provider [phone] MD Unavailable [phone] Andrew Dawson MD Primary Care Provider [phone] Vinicio Dinero MD Primary Care Provider [phone] Reason for Visit * Reason Onset Date Comments General 08/28/2018 Encounter Details Date Type Department Care Team (Late st Contact Info) Description 08/28/2018 Telephone [facility] General Internal Medicine [address] [facility] [address] [place] [address] Maddi Cantrell DO [address] [facility] [address] [place] [address] General Social History Tobacco Use Types Packs/Day [...] the pt's sister the alprazolam is pending OGY ADJUNCT INSTRUCTOR documented in this encounter Plan of Treatment Not on file documented as of this encounter Visit Diagnoses Not on filedocumented in this encounter Additional Health Concerns Infection Onset Date Last Indicated Resolved Time 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
--- OUTSIDE RECORDS SUMMARY | 2025-01-03 12:57 | XMS_ITS | Encounter Summary ---
Author Organization [facility] Address [address] [place] [address] Phone Care Team Providers Care Forming Department End Finder Name Role Phone Andrew Dawson MD Primary Care Provider [phone] Vinicio Dinero MD Primary Care Provider [phone] Marisa Carcamo PAC Unavailable Marisa Carcamo PAC Primary Care Pro vider Reason for Visit * Reason Onset Date Comments Medication Refill 03/10/2020 Encounter Details Date Type Department Care Team (Late st Contact Info) Description 03/10/2020 Refill [facility] [address] [facility] [address] [place], [place] [id number] Andrew Dawson MD #[address] [address] Medication Refill Social History Tobacco Use Types [...] 08/02/2021 08/02/2021 08/22/2021 12:1 6 AM DIRECTOR TRADE COVID - 19 11/03/2021 11/03/2021 11/23/2021 12:1 6 AM DIRECTOR TRADE Assessment Noted Time PHQ-9 Depression Total Score: 0 10/09/19 20 8:42 AM DIRECTOR TRADE documented as of this encounter Care Teams Forming Department End Finder Relationship Specialty Start Date End Date Andrew Dawson MD #[address] [address] PCP - General Family Medicine 11/08/16 01/29/21 Vinicio Dinero MD [address] [place] [address] PCP - General Internal Medicine 01/30/21 07/26/21 Marisa Carcamo [facility] [address] [place] [address] PCP - General Physician Credit Historian 07/27/21 12/25/24 Marisa Carcamo, [facility] [address] [place] [address] Physician Credit Historian Physician Credit Historian 01/30/21 documented as of this encounter
--- OUTSIDE RECORDS SUMMARY | 2025-01-03 12:57 | XMS_ITS | Encounter Summary ---
Author Organization [facility] Healthcare Address [address] [place] [address] Care Team Providers Care Dean Of Women Name Role Phone Vinicio Dinero MD Primary Care Provider [phone] Mushtaq Blake MD Unavailable [phone] Miguel Ángel Sanchez MD Unavailable [phone] Monae Velasquez MD Primary Care Provider Emelyn Curtis MD Unavailable [phone] Heena Stephenson MD Unavailable [phone] Jeffery Bro MD Unavailable [phone] Anali Flores MD Unavailable [phone] Alessandro Dominguez NP Unavailable [phone] Luciano Rodriguez MD Unavailable Encounter Details Date Type Department Care Team (Late st Contact Info) Description 09/23/2022 Telephone [facility] - Interventional Radiology [address] [place] [address] Amanda Valenzuela, ZANE Social History Tobacco Use Types Packs/Day Years Used Date Smoking Tobacco: Every Day Cigarettes Smokeless Tobacco: Never Comments:[facility] unable to extension course counselor at this time. 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 Gender Identity Not on file Sexual Orientation [...] documented as of this encounter Care Teams Dean Of Women Relationship Specialty Start Date End Date Vinicio Dinero MD [address] [place] [address] PCP - General Internal Medicine 10/20/21 12/13/22 Monae Velasquez MD [address] [place] [address] PCP - General Family Practice 12/14/22 Mushtaq Blake MD [address] [place] [address] Medical Oncologist/Hematologi st Hematology and Oncology 09/09/22 Miguel Ángel Sanchez MD [address] [place] [address] Consulting Physician Radiation Oncology 12/09/22 Emelyn Curtis MD [address] [facility] MEDICAL ONCOLOGY, [address], 7B, [address] [address] Consulting Physician Medical Oncology 04/17/23 Heena Stephenson MD [address] [facility] [address] [place] [address] Fellow General Surgery 04/17/23 Jeffery Bro MD [address] [facility] [address] [place] [address] Referring Physician Gastroenterology 05/16/23 Anali Flores MD [address] [facility] [address] [place] [address] Consulting Physician Cardiology 05/22/23 [place] [address] [place] [address] Nurse Practitioner Pain Management 05/22/23 [place] [address] [place] [address] Consulting Physician Interventional Radiology 03/14/24 documented as of this encounter
--- OUTSIDE RECORDS SUMMARY | 2025-01-03 12:57 | XMS_ITS | Encounter Summary ---
Author Organization [facility] Care Team Providers Care Farm Supervisor Name Role Phone Andrew Dawson MD Primary Care Provider [phone] Andrew Dawson MD Primary Care Provider [phone] Vinicio Dinero MD Primary Care Provider [phone]- [phone] Mushtaq Blake MD Unavailable [phone] Miguel Ángel Sanchez MD Unavailable [phone] Monae Velasquez MD Primary Care Provider Emelyn Curtis MD Unavailable [phone] Heena Stephenson MD Unavailable [phone] Jeffery Bro MD Unavailable Anali Flores MD Unavailable [phone] Alessandro Dominguez NP Unavailable [phone] Luciano Rodriguez MD Unavailable Encounter Details Date Type Department Care Team (Latest Contact Info) Description 11/18/2015 Orders Only [facility]INCON[facility] Provider, MD Sourav [address] [place] [address] Social History Tobacco Use Types Packs/Day Years Used Date Smoking Tobacco: Never Assessed Sex and Gender Information Value Date Recorded Sex Assigned at Not on file Legal Sex Male 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 us Historical Provider Final Res ult documented in this encounter Visit Diagnoses Not on filedocumented in this encounter Additional Health Concerns Infection Onset Date Last Indicated Resolved Time COVID: Suspected 05/04/2023 05/04/2023 05/04/2023 8:26 PM CDT COVID: Suspected 03/04/2024 03/04/2024 03/04/2024 4:06 PM CDT documented as of this encounter Care Teams Farm Supervisor Relationship Specialty Start Date End Date Andrew Dawson MD PCP - General Cardiology 12/10/18 10/23/19 Andrew Dawson MD [address] [address] PCP - General Family Medicine 10/24/19 10/19/21 Vinicio Dinero MD [address] [place] [address] PCP - General Internal Medicine 10/20/21 12/13/22 Monae Velasquez MD [address] [place] [address] PCP - General Family Practice 12/14/22 Mushtaq Blake MD [address] [place] [address] Medical Oncologist/Hematologi st Hematology and Oncology 09/09/22 Miguel Ángel Sanchez MD [address] [place] [address] Consulting Physician Radiation Oncology 12/09/22 Emelyn Curtis MD [address] DIV IM MEDICAL ONCOLOGY, [address], 7B, [address] [place] [address] Consulting Physician Medical Oncology 04/17/23 Heena Stephenson MD [address] [place] [address] Fellow General Surgery 04/17/23 Jeffery Bro MD [address] [place] [address] Referring Physician Gastroenterology 05/16/23 Anali Flores MD [address] [facility] [address] [place] [address] Consulting Physician Cardiology 05/22/23 [place] [address] [place] [address] Nurse Practitioner Pain Management 05/22/23 [place] [address] [place] [address] Consulting Physician Interventional Radiology 03/14/24 documented as of this encounter
--- OUTSIDE RECORDS SUMMARY | 2025-01-03 12:57 | XMS_ITS | Clinical Summary ---
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 90 tablet 3 08/02/20 23 Active aspirin 81 mg enteric coated tabletIndications: S/P TAVR (transcatheter aortic valve replacement) Take 1 tablet (81 mg total) by mouth daily 30 tablet 11 09/19/20 23 Active budesonide-glycopy r-formoterol (BREZTRI) 160-9-4.8 mcg/actuation inhalerIndications :Panlobular emphysema (HCC),Chronic respiratory failure with hypoxia, on home oxygen therapy ([facility]) Inhale 2 puffs 2 (two) times [...] electrophysiology Assessment & Plan (08/10/2023 5:04 PM FELT TIPPING MACHINE TENDER): Patient has a degree of persistent bradycardia [...] mirtazapine Assessment & Plan (08/10/2023 5:04 PM FELT TIPPING MACHINE TENDER): Chronic. Continue the buspirone and mirtazapine. They [...] specialist Assessment & Plan (08/10/2023 5:03 PM FELT TIPPING MACHINE TENDER): Chronic. Per recent notes from Oncology and [...] constipation Assessment & Plan (08/10/2023 5:03 PM FELT TIPPING MACHINE TENDER): Chronic back pain syndrome. Saw pain management [...] management Assessment & Plan (08/10/2023 5:02 PM FELT TIPPING MACHINE TENDER): Chronic. Struggles with chronic pain. Was previously [...] management Assessment & Plan (08/10/2023 5:02 PM FELT TIPPING MACHINE TENDER): Status post prior transaortic valve replacement. Care per Cardiology Chronic diastolic CHF (congestive heart failure) 01/21/2021 Assessment & Plan (03/18/2024 5:22 PM CDT): Chronic. Compensated. Continue current medication. Monitor Assessment & Plan (12/11/2023 5:55 PM CDT): Chronic. Compensated. Continue current prescription medication Assessment & Plan (08/10/2023 5:02 PM FELT TIPPING MACHINE TENDER): Chronic. Compensated. Continue medication and care per Cardiology Persistent atrial fibrillation 01/20/2021 Assessment & Plan (03/18/2024 5:22 PM CDT): Chronic. Controlled. Continue beta-carlene and anticoagulation. Monitor Assessment & Plan (12/11/2023 5:55 PM CDT): Chronic. Stable. Continue current prescription medication. Continue anticoagulation for stroke prevention Assessment & Plan (08/10/2023 5:01 PM FELT TIPPING MACHINE TENDER): Chronic. Follows with cardiology. Has plans for upcoming cardiac ablation and placement of pacemaker. Continue medication and care per Cardiology Chronic anticoagulation 02/19/2020 Assessment & Plan (03/18/2024 5:21 PM CDT): Chronic. Bleeding precautions recommended. Assessment & Plan (12/11/2023 5:54 PM CDT): Chronic no signs of spontaneous bleeding. Continue anticoagulation for stroke prevention. Bleeding precautions recommended Assessment & Plan (08/10/2023 5:01 PM FELT TIPPING MACHINE TENDER): Chronic due to AFib. Discussed bleeding precautions. [...] counseling Assessment & Plan (08/10/2023 5:01 PM FELT TIPPING MACHINE TENDER): Chronic. Counseled to quit. Reviewed health risks Chronic bilateral low back pain without sciatica 01/18/2017 Assessment & Plan (08/10/2023 5:04 PM FELT TIPPING MACHINE TENDER): Chronic. Needs to follow up with pain management Panlobular emphysema 11/09/2016 Assessment & Plan (03/18/2024 5:24 PM CDT): Chronic. Breathing is stable. Continue breztri Assessment & Plan (12/11/2023 5:56 PM CDT): Chronic. Uncontrolled. Needs improvement. Noncompliant with inhalers. Restart BReztri. Stressed importance of smoking cessation. No signs of acute exacerbation Assessment & Plan (08/10/2023 5:00 PM FELT TIPPING MACHINE TENDER): Chronic. Uncontrolled. Noncompliant with inhalers. Stressed importance of taking breast true regularly. Previously did not like any of the powdered inhalers. Still smoking. Patient will be referred to alternative creasing machine operator for management as he does not want to go to his previous 1 at [facility] Dyslipidemia 09/30/2016 Assessment & Plan (03/18/2024 5:23 PM CDT): Chronic. Tolerates atorvastatin. Continue. 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 They defer for today Assessment & Plan (12/11/2023 5:58 PM CDT): Chronic. Stable. Continue atorvastatin Assessment & Plan (08/10/2023 5:05 PM FELT TIPPING MACHINE TENDER): Chronic. Encouraged to continue his atorvastatin for [...] decompensation Assessment & Plan (08/10/2023 5:04 PM FELT TIPPING MACHINE TENDER): Patient has a chronic degree of mild [...] nightly Assessment & Plan (08/10/2023 5:01 PM FELT TIPPING MACHINE TENDER): Chronic, intermittent hypoxemia. Has supplemental oxygen at night. Has been followed by pulmonology but wishes to switch to closer creasing machine operator Leg edema 10/31/2022 11/16/2022 Discomfort of left [...] - 09/24/2018 Unsure if completed. Records from Agency show skin rash, renal biopsy with IgA [...] C) BPH (benign prostatic hyperplasia) Depression Anxiety [place] (hard of hearing) Cataract bilateral Cervical spinal [...] drink = 0.6 oz pur e alcohol) [facility] Utilities Answer Date Recorded In the past 12 months has e electric, gas, oil, or water [employer] threatened to shut off services in your [...] often do you attend chur ch or jew services? Never 08/31/2023 Do you belong to any clubs o r organizations such as mandaen groups, unions, fraternal or athletic groups, or [...] place to sleep or slept in a correction (including now)? No 08/31/2023 Personal Safety Answer Date Recorded Have you ever been in or are you currently in a harmful physical or emotional relationship or is someone making you feel afraid or unsafe? Denies 03/14/2024 Sex and Gender Information Value Date Recorded Sex Assigned at Not on file Legal Sex Male 2:00 AM FELT TIPPING MACHINE TENDER Gender Identity Not on file Sexual Orientation [...] history exists Medical Devices Implanted Type Area Resistor Inspector Device Identifier Shelf Expiration Date Model / Serial / Lot [employer] Tendril Sts 6fr 58cm Is-1 Connector Active Fixation Bipolar Soft 2087tc/58 - [id number] - [id number] Implanted:Qty: 1 on 08/11/2023 by Leon Rock MD at [facility] Lead Right: Ventricle [employer] 05/25/2026 2088TC/ 58 / [id number] / [employer] Tendril Sts 6fr 52cm Is-1 Connector Active Fixation Bipolar Soft 2087tc/52 - [id number] Implanted:Qty: 1 on 08/11/2023 by Leon Rock MD at [facility] Lead Right: Atrial Appendage [employer] Inc 05/25/2026 2088TC/ 52 / / [employer] Quartet 4.7fr 86cm Quadripolar Is-4 Llll Connector 8 Curve Low 1456q/86 - [id number] - [id number] Implanted:Qty: 1 on 08/11/2023 by Leon Rock MD at [facility] Lead Right: Atrial Appendage [employer] 04/24/2026 1456Q/8 6 / [id number] / [employer]nes [employer] Pacemaker Dual Chamber Patient Safety Sitter P Mri Compatible Quadra Allure Mp Cg9000 - [id number] - [id number] Implanted:Qty: 1 on 08/11/2023 by Leon Rock MD at [facility] Pacemaker Left: Infraclavicular Anterior Chest Wall [employer] [id number] / [id number] / Ter[employer] Andreas Angio-Seal Vip 6fr Closere Device 325644 - [id number] Implanted:Qty: 1 on 06/08/2022 by Demetris Kay MD at [facility] [employer] Andreas 12/23/2022 [id number] / / [id number] Brown [employer] Brooke 3 Commander Brown 26mm Transcatheter Ultra Low Profile [id number] - [id number] - [id number] Implanted:Qty: 1 on 10/18/2022 by Demetris Kay MD at [facility] [employer] 05/26/2025 [id number] / [id number] / Description:Heart valve 3T o r less [employer] Device Clsr Perclose Prostyle Sut-Mediatd Closure-Repair Sys 42443-89 - [id number] Implanted:Qty: 1 on 10/18/2022 by Demetris Kay MD at [facility] [employer] 07/25/2024 47690-9 [employer] Device Clsr Perclose Prostyle Sut-Mediatd Closure-Repair Sys 84138-67 - [id number] Implanted:Qty: 1 on 10/18/2022 by Demetris Kay MD at [facility] [employer] 07/25/2024 29233-7 [facility] Angio-Seal Vip 6fr Closere Device [id number] - [id number] Implanted:Qty: 1 on 10/18/2022 [facility] 06/24/2023 [id number] / / [id number] Medtronic Inc Coil Embolization Coated Detachable Helical Concerto 3bzv3hf Nylon Xn-9-1-[place] - [id number] Implanted:Qty: 1 on 12/07/2022 at [facility] Medtronic Inc NV-3-4- HELIX / / Medtronic Inc Coil Embolization Coated Detachable Helical Concerto 2aro94bb Nylon Ra-3-19-[place] - [id number] Implanted:Qty: 1 on 12/07/2022 at [facility] Medtronic Inc NV-5-20 -HELIX / / [employer] Device Clsr Perclose Prostyle Sut-Mediatd Closure-Repair Sys 44598-05 - [id number] Implanted:Qty: 1 on 12/07/2022 at [facility] [employer] [id number] 09/24/2024 77750-1 3 [id number] [employer] Andreas Coil Emolization Coated Detachable Embold 3fsy35th [place] Tungsten [id number] 20 - [id number] Implanted:Qty: 1 on 12/07/2022 at [facility] [employer] Andreas [id number] 08/23/2025 [id number] 20 / / [id number] [employer] Andreas Coil Emolization Coated Detachable [place] Tungsten Embold 7nmz8cq [id number] 40 - [id number] Implanted:Qty: 1 on 12/07/2022 at [facility] [employer] Andreas [id number] 40 / / [employer] Andreas Coil Emolization Coated Detachable Embold 1ven2gz [place] T[employer]sten [id number] 80 - [id number] Implanted:Qty: 1 on 12/07/2022 at [facility] [employer] Andreas [id number] 07/31/2025 [id number] 80 / / [id number] Ir Marker .5mm X 1cm Preld 21ga 15cm Long Ndl Visicoil - [id number] Implanted:Qty: 1 on 01/10/2023 at [facility] [employer] Andreas 11/22/2025 SN-050- 010-PL1 [id number] Ir Marker .5mm X 1cm Preld 21ga 15cm Long Ndl Visicoil - [id number] Implanted:Qty: 1 on 01/10/2023 at [facility] [employer] 04/24/2025 SN-050- 010-PL1 [id number] Ir Marker .5mm X 1cm Preld 21ga 15cm Long Ndl Visicoil - [id number] Implanted:Qty: 1 on 01/10/2023 at [facility] [employer] 11/22/2025 SN-050- 010-PL1 [id number] Ir Marker .5mm X 1cm Preld 21ga 15cm Long Ndl Visicoil - [id number] Implanted:Qty: 1 on 01/10/2023 at [facility] [employer] 11/22/2025 SN-050- 010-PL1 [id number] [employer] Tyrx Absorbable Antibacterial Envelope-Large 3.3x2.9in [id number] - [id number] Implanted:Qty: 1 on 09/01/20[facility] 05/18/2024 [id number] / / [id number] Ter[employer]o [employer] Andreas Angio-Seal Vip 6fr Closere Device [id number] - [id number] Implanted:Qty: 1 on 01/09/2024 at [facility] [employer] Andreas 08/02/2024 [id number] / / [id number] [employer] [employer] Andreas Coil Emolization Coated Detachable Embold 2kkm17ll [place] Tungsten [id number] 50 - [id number] Implanted:Qty: 1 on 01/09/2024 at [facility] [employer] Andreas [id number] 08/15/2026 [id number] 50 / / [id number] [employer] Andreas Coil Emolization Coated Detachable Embold 4axy07gk [place] Tungsten [id number] 00 - [id number] Implanted:Qty: 1 on 01/09/2024 at [facility] [employer] Andreas [id number] 09/07/2026 [id number] 00 / / [id number] [employer] Andreas Coil Emolization Coated Detachable [place] Tungsten Embold 3cbn8ab [id number] 40 - [id number] Implanted:Qty: 1 on 01/09/2024 at [facility] [employer] Andreas [id number] 07/25/2026 [id number] 40 / / [id number] Terumo [employer] Andreas Angio-Seal Vip 6fr Closere Device 384224 - [id number] Implanted:Qty: 1 on 03/14/2024 at [facility] [employer] 08/28/2024 [id number] / / [id number] Explanted Type Area Resistor Inspector Device Identifier Shelf Expiration Date Model / Serial / Lot [employer] [facility] Guy Flexi-Stent 7fr 9cm Small Pigtail Flexible .035in Stent 6575 - [id number] Implanted:Qty: 1 on 03/15/2023 by Rusty Pendleton MD at [facility] Explanted:Qty: 1 on 03/17/2023 by Ronald Cortez MD at [facility] Stent N/A: Pancreas [employer] [id number] 09/25/2021 6575 / / [id number] [employer] [employer] Andreas Wallflex 10mm X 60mm Fully Covered Biliary [id number] - [id number] Implanted:Qty: 1 on 03/15/2023 by Rusty Pendleton MD at [facility] Explanted:Qty: 1 on 03/17/2023 by Ronald Cortez MD at [facility] Stent N/A: Bile Duct [employer] Andreas [id number] 12/05/2024 [id number] / / [id number] Procedures Procedure Name Priority Date/Time Associated Diagnosis [...] abdomen or pelvis abnormality. Stat report by [facility] Electronically signed by: Misbah Li M.D. [...] abdomen or pelvis abnormality. Stat report by [facility] Electronically signed by: Misbah Li M.D. Iqra Hedrick MD IM CT PROCEDURES Gladys l Result * (ABNORMAL) Hepatitis C (HCV) RNA PCR, quantitative (05/13/2016 9:11 AM CDT) HBsAb log IU/mL 2.0 () log IU 6 7:33 AM [facility] HISTORICAL RESULTS Comment: INTERPRETIVE INFORMATION: Hepatitis C [...] IU/mL 110 () IU/mL 05/18/2016 7:33 AM [facility] HCV RNA result Detected( H) Not Detected 05/18/2016 7:33 AM [facility] [employer] [facility] HISTORICAL RESULTS HCV RNA See Note () 05/18/2016 7:33 AM [facility] [employer] [facility] HISTORICAL RESULTS Comment: Access Hydrobolt Enhanced Report using either link below: -Direct access: [email or web address] -Enter Username, Password: [email or web address] Username: [email or web address] Password: [email or web address] Performed by [employer], [address] [place] [address] [email or web address] [place] Quevedo MD, Lab. Director 05/13/2016 9:11 AM CDT 05/13/2016 9:22 AM CDT us Janis Vasquez NP LAB MICROBIOLOGY - GENERAL ORDERABLES Final Result [facility] HISTORICAL RESULTS * Occult blood, fecal non [...] Most Recently Relevant to Health Maintenance Insurance [id number] [place] [address] MEDICARE ADVANTAGE [facility] MEDICARE ADVANTAGE Advance Directives For more information, please contact: [phone] * Full Code (Latest Code Status on [...] 11:04 AM 08/12/2023 2:30 PM Care Teams Helicopter Technician Relationship Specialty Start Date End Date Monae Velasquez MD [address] DEPT [place] [address] PCP - General Family Practice 12/14/22 Mushtaq Blake MD Medical Oncologist/Hematologi st Hematology and Oncology 09/09/22 Miguel Ángel Sanchez MD [address] DEPT [place] [address] Consulting Physician Radiation Oncology 12/09/22 Emelyn Curtis MD [address] DIV IM MEDICAL ONCOLOGY, [address], 7B, 7C [place] [address] Consulting Physician Medical Oncology 04/17/23 Heena Stephenson MD [address] [place] [address] Fellow General Surgery 04/17/23 Jeffery Bro MD [address] [place] [id number] Referring Physician Gastroenterology 05/16/23 Anali Flores MD [address] [address] Consulting Physician Cardiology 05/22/23 [place] [address] [place] [address] Nurse Practitioner Pain Management 05/22/23 [place] [address] [place] [address] Consulting Physician Interventional Radiology 03/14/24
--- OUTSIDE RECORDS SUMMARY | 2025-01-03 12:57 | XMS_ITS | Clinical Summary ---
Author Organization [facility] Address [address] [place] [address] Phone Care Team Providers Care Crown Blocker Name Role Phone Unavailable Primary Care Provider [...] for Spasm. 30 Tablet 10/17/2019 10:54 AM INSURANCE RISK SURVEYOR 0 Active Lidocaine 4 % Adhesive Patch, Medicated Apply 1 patch only once for up to 12 hours within a 24 hour period to Left side of chest over area of most discomfort 10 Patch 10/17/2019 10:54 AM INSURANCE RISK SURVEYOR 0 Active Active Problems Problem Noted Date [...] Comments Blood Pressure 102/69 10/17/2019 8:32 AM INSURANCE RISK SURVEYOR Pulse 63 10/17/2019 8:32 AM INSURANCE RISK SURVEYOR Temperature 36.8 C (98.2 F) 10/17/2019 8:32 AM INSURANCE RISK SURVEYOR Respiratory Rate 13 10/17/2019 8:32 AM INSURANCE RISK SURVEYOR Oxygen Saturation 93% 10/17/2019 8:32 AM INSURANCE RISK SURVEYOR Inhaled Oxygen Concentration - - Weight 68.2 kg (150 lb 4.8 oz) 10/17/2019 2:47 A M INSURANCE RISK SURVEYOR Height 172.7 cm (5' 8 ) 10/17/2019 2:47 AM INSURANCE RISK SURVEYOR Body Mass Index 22.85 10/17/2019 2:47 AM INSURANCE RISK SURVEYOR Plan of Treatment Health Maintenance Due Date [...]
--- OUTSIDE RECORDS SUMMARY | 2025-01-03 12:57 | XMS_ITS ---
Author Organization [facility] [address] Address [address] [place] [address] Care Team Providers Care Grades 7 8 Tutor Name Role Phone Mushtaq Blake MD Unavailable [phone] Miguel Ángel Sanchez MD Unavailable [phone] Monae Velasquez MD Primary Care Provider Emelyn Curtis MD Unavailable [phone] Heena Stephenson MD Unavailable [phone] Jeffery Bro MD Unavailable [phone] Anali Flores MD Unavailable [phone] Alessandro Dominguez NP Unavailable [phone] Luciano Rodriguez MD Unavailable Active Problems [...] SSS, Afib, AV Node Ablation. DOI [facility]11[facility]2023[facility]. Sick sinus syndrome 07/20/2023 Assessment & Plan (12/11/2023 6:00 PM CDT): Chronic. Status post pacemaker. Stable. Continue care per cardiology and electrophysiology Assessment & Plan (08/10/2023 5:04 PM RECREATIONAL ASSISTANT): Patient has a degree of persistent bradycardia [...] mirtazapine Assessment & Plan (08/10/2023 5:04 PM RECREATIONAL ASSISTANT): Chronic. Continue the buspirone and mirtazapine. They [...] specialist Assessment & Plan (08/10/2023 5:03 PM RECREATIONAL ASSISTANT): Chronic. Per recent notes from Oncology and [...] constipation Assessment & Plan (08/10/2023 5:03 PM RECREATIONAL ASSISTANT): Chronic back pain syndrome. Saw pain management [...] management Assessment & Plan (08/10/2023 5:02 PM RECREATIONAL ASSISTANT): Chronic. Struggles with chronic pain. Was previously [...] management Assessment & Plan (08/10/2023 5:02 PM RECREATIONAL ASSISTANT): Status post prior transaortic valve replacement. Care per Cardiology Chronic diastolic CHF (congestive heart failure) 01/21/2021 Assessment & Plan (03/18/2024 5:22 PM CDT): Chronic. Compensated. Continue current medication. Monitor Assessment & Plan (12/11/2023 5:55 PM CDT): Chronic. Compensated. Continue current prescription medication Assessment & Plan (08/10/2023 5:02 PM RECREATIONAL ASSISTANT): Chronic. Compensated. Continue medication and care per Cardiology Persistent atrial fibrillation 01/20/2021 Assessment & Plan (03/18/2024 5:22 PM CDT): Chronic. Controlled. Continue beta-carlene and anticoagulation. Monitor Assessment & Plan (12/11/2023 5:55 PM CDT): Chronic. Stable. Continue current prescription medication. Continue anticoagulation for stroke prevention Assessment & Plan (08/10/2023 5:01 PM RECREATIONAL ASSISTANT): Chronic. Follows with cardiology. Has plans for upcoming cardiac ablation and placement of pacemaker. Continue medication and care per Cardiology Chronic anticoagulation 02/19/2020 Assessment & Plan (03/18/2024 5:21 PM CDT): Chronic. Bleeding precautions recommended. Assessment & Plan (12/11/2023 5:54 PM CDT): Chronic no signs of spontaneous bleeding. Continue anticoagulation for stroke prevention. Bleeding precautions recommended Assessment & Plan (08/10/2023 5:01 PM RECREATIONAL ASSISTANT): Chronic due to AFib. Discussed bleeding precautions. [...] counseling Assessment & Plan (08/10/2023 5:01 PM RECREATIONAL ASSISTANT): Chronic. Counseled to quit. Reviewed health risks Chronic bilateral low back pain without sciatica 01/18/2017 Assessment & Plan (08/10/2023 5:04 PM RECREATIONAL ASSISTANT): Chronic. Needs to follow up with pain management Panlobular emphysema 11/09/2016 Assessment & Plan (03/18/2024 5:24 PM CDT): Chronic. Breathing is stable. Continue breztri Assessment & Plan (12/11/2023 5:56 PM CDT): Chronic. Uncontrolled. Needs improvement. Noncompliant with inhalers. Restart BReztri. Stressed importance of smoking cessation. No signs of acute exacerbation Assessment & Plan (08/10/2023 5:00 PM RECREATIONAL ASSISTANT): Chronic. Uncontrolled. Noncompliant with inhalers. Stressed importance of taking breast true regularly. Previously did not like any of the powdered inhalers. Still smoking. Patient will be referred to alternative campaign management specialist for management as he does not want to go to his previous 1 at [facility] Dyslipidemia 09/30/2016 Assessment & Plan (03/18/2024 5:23 PM CDT): Chronic. Tolerates atorvastatin. Continue. 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 They defer for today Assessment & Plan (12/11/2023 5:58 PM CDT): Chronic. Stable. Continue atorvastatin Assessment & Plan (08/10/2023 5:05 PM RECREATIONAL ASSISTANT): Chronic. Encouraged to continue his atorvastatin for [...] decompensation Assessment & Plan (08/10/2023 5:04 PM RECREATIONAL ASSISTANT): Patient has a chronic degree of mild [...] nightly Assessment & Plan (08/10/2023 5:01 PM RECREATIONAL ASSISTANT): Chronic, intermittent hypoxemia. Has supplemental oxygen at night. Has been followed by pulmonology but wishes to switch to closer campaign management specialist Leg edema 10/31/2022 11/16/2022 Discomfort of [...]
--- OUTSIDE RECORDS SUMMARY | 2025-01-03 12:57 | XMS_ITS | Encounter Summary ---
Author Organization [facility] Address [address] [place] [address] Phone Care Team Providers Care Digital Media Associate Name Role Phone Marisa Carcamo PAC Primary Care Pro vider Reason for Visit * Reason Comments Medication Refill Encounter Details Date Type Department Care Team (Late st Contact Info) Description 02/14/2023 Refill [facility] - [facility] Medicine - [facility] [address] [place] [address] Marisa Carcamo, [facility] [address] [place] [address] Medication Refill Social History Tobacco [...] Total Score: 11 08/02/2 021 3:00 PM SECTION CHIEF documented as of this encounter Care Teams Digital Media Associate Relationship Specialty Start Date End Date Marisa Carcamo, [facility] [address] [place] [address] PCP - General Physician Personnel Analyst 07/27/21 12/25/24 documented as of this encounter
--- OUTSIDE RECORDS SUMMARY | 2025-01-03 12:57 | XMS_ITS | Clinical Summary ---
Author Organization [facility] Address [address] [place] [address] Care Team Providers Care Recording Engineer Name Role Phone Ravinder Street MD Unavailable Ravinder Street MD Unavailable [phone] Vinicio Dinero MD Primary Care Provider [phone] Source Comments [facility],non-owned Affiliates and Associated Physician Practices is amultiple site organization consisting of ambulatory clinics and hospital sitesin [place], [place], [place] and [place]. This disclosure is being madepursuant to the Care Everywhere program and may not contain all information available regarding this patient. Last updated 18.[facility] Allergies Active Allergy Reactions Criticality Noted Date [...] sprayIndications:A llergic rhinitis, unspecified seasonality, unspecified trigger Dawson 2 sprays into each nostril once daily [...] daily 90 tablet 3 07/27/2022 Active saline ([place]) gelIndications:Dry nose Dawson into each nostril as needed for Dry [...] CDT Respiratory Rate 20 11/27/2019 12:38 PM TELEVISION INSTALLER HELPER Oxygen Saturation 96% 01/13/2021 3:08 PM CDT Inhaled Oxygen Concentration 21% 11/07/2018 8 :13 AM TELEVISION INSTALLER HELPER Weight 64 kg (141 lb) 07/27/2022 2:16 [...] this topic Medical Devices Implanted Type Area Livestock Dealer Device Identifier Shelf Expiration Date Model / Serial / Lot Wax Bone Implanted:Qty: 1 on 02/07/2013 by Wilbur Muñoz MD at [facility] N/A: Spine Cervical [employer] [id number] / / Coil Azur Detatch .018in 3.0-5.0cm Implanted:Qty: 1 on 07/30/2018 at [facility] [employer] 01/22/2023 [id number] / / [id number] Coil Azur Detatch .018in 2.0mm X 2.0cm Implanted:Qty: 1 on 07/30/2018 at [facility] [employer] 02/22/2022 [id number] / / [id number] Procedures Procedure Name Priority Date/Time Associated Diagnosis Comments CT LUNG SCREEN LOW DOSE Routine 07/19/2021 9:29 AM CDT Encounter for screening for lung cancer HEPATITIS C RNA QUANTITATIVE Routine 09/11/2018 11:09 AM TELEVISION INSTALLER HELPER Chronic hepatitis C without hepatic coma from [...] chest CT. Dictated by Miles Andre D.O. (Vegetable Farmer) This report was approved by Miles Andre [...] chest CT. Dictated by Miles Andre D.O. (Vegetable Farmer) This report was approved by Miles Andre on 07/19/2021 10:14 AM . I, Dr. ALEXX LACY have personally reviewed and interpreted this examination/study. This report was electronically signed by ALEXX LACY on 110:20 AM . Jony Hernandez MD CT ORDERABLES * HEPATITIS C RNA QUANTITATIVE (09/11/2018 11:09 AM TELEVISION INSTALLER HELPER) Hepatitis C RNA PCR, Interp Not Detected Not Detected 09/14/2018 8:16 AM TELEVISION INSTALLER HELPER [facility] Blood BLOOD SPECIMEN / Unknown Lab Venipuncture / Unknown 09/11/2018 11:09 AM TELEVISION INSTALLER HELPER 09/11/2018 11:36 AM TELEVISION INSTALLER HELPER Narrative [facility] - 09/14/2018 8:16 AM TELEVISION INSTALLER HELPER The Hepatitis C viral (HCV) RNA analysis utilized a serum sample, real-time reverse rougher helper PCR, and is reported as Not Detected, [...] the isolation of HCV RNA with reverse rougher helper of genomic HCV RNA followed by real-time PCR in the presence of an unrelated RNA internal control. The internal control ensures that RNA is isolated, and that no general significant inhibitors of the RT-PCR process are present. The analysis was performed using a U.S. FDA approved test methodology ([employer] Real Time HCV). Nishant Cifuentes MD LAB - CHEMISTRY ROGER MCLAIN Performing Organization Address City/State/[facility] Co de Phone Number [facility] [address] [phone] from Last 3 Months or Most Recently [...] 10:57 PM 07/30/2018 6:08 PM Care Teams Recording Engineer Relationship Specialty Start Date End Date Vinicio Dinero MD [address] [place] [address] PCP - General 12/28/[address] MD Resident - PCP Student Resident 08/27/[address] MD Student Resident 08/28/18
--- OUTSIDE RECORDS SUMMARY | 2025-01-03 12:57 | XMS_ITS | Encounter Summary ---
Author Organization [facility] Address [address] [place] [address] Phone Care Team Providers Care Warp Worker Name Role Phone Andrew Dawson MD Primary Care Provider [phone] Vinicio Dinero MD Primary Care Provider [phone] Marisa Carcamo PAC Unavailable Marisa Carcamo PAC Primary Care Pro vider Reason for Visit * Reason Comments Medication Refill Encounter Details Date Type Department Care Team (Late st Contact Info) Description 05/11/2020 Refill [facility] - Family [facility] [address] [place] [id number] Sera Spring APRN, DATA PROCESSING MANAGER [address] [address] Medication Refill Social History Tobacco [...] 19 08/02/2021 08/02/2021 08/22/2021 12:1 6 AM WHEEL PRESS CLERK COVID - 19 11/03/2021 11/03/2021 11/23/2021 12:1 6 AM WHEEL PRESS CLERK Assessment Noted Time PHQ-9 Depression Total Score: 0 03/12/20 20 12:31 PM CDT documented as of this encounter Care Teams Warp Worker Relationship Specialty Start Date End Date Andrew Dawson MD [address] [address] PCP - General Family Medicine 11/08/16 01/29/21 Vinicio Dinero MD [address] [place] [address] PCP - General Internal Medicine 01/30/21 07/26/21 Marisa Carcamo PAC [address] [place] [address] PCP - General Physician Mail Clerks Supervisor 07/27/21 12/25/24 Marisa Carcamo PAC [address] [place] [address] Physician Mail Clerks Supervisor Physician Mail Clerks Supervisor 01/30/21 documented as of this encounter
--- OUTSIDE RECORDS SUMMARY | 2025-01-03 12:57 | XMS_ITS | Clinical Summary ---
Author Organization [facility] Address [address], [facility] [address] [place] [address] Phone Care Team Providers Care Warehouse Puller Name Role Phone Unavailable Primary Care Provider [...] 02/02/2017 Overview (02/02/2017): Cardio follows; Dr Santana; [place], [place] [address] COPD (chronic obstructive pulmonary disease) 07/2017 Overview (11/15/2021): PULM follows Dr David RIVAS Chronic bilateral low back pain without sciatica 01/18/2017 Hepatitis C, chronic 12/29/2016 Physical exam, annual (Adult) 11/09/2016 Anxiety 11/09/2016 Tobacco abuse 11/09/2016 Panlobular emphysema 11/09/2016 Resolved Problems Problem Noted Date Diagnosed Date Resolved Date Atrial fibrillation 11/09/2016 04/15/20 20 Immunizations Immunization Administration Dates Next Due Influenza [...] Comments Blood Pressure 98/54 11/15/2021 11:25 AM PROGRAM DIRECTOR GROUP WORK Pulse 61 11/15/2021 11:25 AM PROGRAM DIRECTOR GROUP WORK Temperature 36.3 C (97.4 F) 11/15/2021 11:25 AM PROGRAM DIRECTOR GROUP WORK Respiratory Rate 12 11/15/2021 11:2 5 AM PROGRAM DIRECTOR GROUP WORK Oxygen Saturation 98% 11/15/2021 11: 25 AM PROGRAM DIRECTOR GROUP WORK Inhaled Oxygen Concentration - - Weight 69.7 kg (153 lb 11.2 oz) 022 11:25 AM PROGRAM DIRECTOR GROUP WORK Height 175.3 cm (5' 9 ) 11/15/2021 11:2 5 AM PROGRAM DIRECTOR GROUP WORK Body Mass Index 22.7 11/15/2021 11:25 AM PROGRAM DIRECTOR GROUP WORK Plan of Treatment Health Maintenance Due Date [...] PCV) 08/20/2019 08/20/2018, 08/20/2018, 09/25/2011 SARS-COV-2 Immunization (1 - season) 2024 Influenza Immunization (Season Ended) [...] this topic Medical Devices Implanted Type Area Photograph Editor Device Identifier Shelf Expiration Date Model / Serial / Lot Angioseal Vip 6fr - [id number] Implanted:Qty : 1 on 06/08/2017 by Deyanira Rick MD at [facility] IMPLANT Right: Groin TERUMO / CARDIOVASCULAR SYSTEM 02/22/2018 [id number] / [id number] Procedures Procedure Name Priority Date/Time Associated Diagnosis Comments CT CHEST SCREENING WO Routine 11/19/2021 12:00 AM PROGRAM DIRECTOR GROUP WORK Smoker Personal history of nicotine dependence PSA SCREEN 11/19/2021 12:00 AM PROGRAM DIRECTOR GROUP WORK from Last 3 Months or Most Recently Relevant to Health Maintenance Results * CT CHEST SCREENING WO (11/19/2021 12:00 AM PROGRAM DIRECTOR GROUP WORK) Anatomical Region Laterality Modality Chest N/A Other 11/19/2021 us Marisa Carcamo PAC IMG CT ORDERABLES Final Result * PSA SCREEN (11/19/2021 12:00 AM PROGRAM DIRECTOR GROUP WORK) Blood 11/19/2021 us Not On File Provider CHEMISTRY ORDERABLES Edited Result - Final SCAN from Last 3 Months or Most Recently Relevant to Health Maintenance Insurance [place] MEDICARE C [facility] [place] [address] MEDICARE C [facility] [place] Advance Directives Documents on File Type Date Recorded Patient Home Delivery Driver Expl anation Advance Care Planning Discussion 02/25/2019 8:54 AM ACP DISCUSSION RECOR D 02/22/2019 POLST/POST/MA DNR 02/12/2019 10:32 AM POLS T 02/11/19 [...]
--- OUTSIDE RECORDS SUMMARY | 2025-01-03 12:57 | XMS_ITS | Encounter Summary ---
Author Organization [facility] Address [address] [place] [address] Care Team Providers Care Nursery Teacher Name Role Phone Ravinder Street MD Unavailable [phone] MD Unavailable [phone] Andrew Dawson MD Primary Care Provider [phone] Vinicio Dinero MD Primary Care Provider [phone] Encounter Details Date Type Department Care Team (Late st Contact Info) Description 08/12/[address] [facility] [address] [place] [address] Jony Hernandez MD [address] OF PULMONARY/[place] [address] Social History Tobacco Use Types Packs/Day Years [...] Instructions* Brittany Brown - 08/12/2021 8:13 AM RESORT DESK CLERK Patient's sister, Felisa called and said they are both sick today. She would ideally like to switch to TELEMED today. Can you call her at [phone]? 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
--- OUTSIDE RECORDS SUMMARY | 2025-01-03 12:57 | XMS_ITS | Encounter Summary ---
Author Organization [facility] Address [address] [place] [address] Care Team Providers Care Legal Billing Coordinator Name Role Phone Vinicio Dinero MD Primary Care Provider [phone] Mushtaq Blake MD Unavailable [phone] Miguel Ángel Sanchez MD Unavailable [phone] Monae Velasquez MD Primary Care Provider Emelyn Curtis MD Unavailable [phone] Heena Stephenson MD Unavailable [phone] Jeffery Bro MD Unavailable [phone] Anali Flores MD Unavailable [phone] Alessandro Dominguez NP Unavailable [phone] Luciano Rodriguez MD Unavailable Encounter Details Date Type Department Care Team (Late st Contact Info) Description 09/02/2022 Telephone [facility] - Interventional Radiology [address] [place] [address] Amanda Valenzuela, ZANE Social History Tobacco Use Types Packs/Day Years Used Date Smoking Tobacco: Every Day Cigarettes Smokeless Tobacco: Never Comments[facility] at this time. Alcohol Use Standard [...] on file Legal Sex Male 2:00 AM GRAPHICS PROGRAMMER Gender Identity Not on file Sexual Orientation [...] documented as of this encounter Care Teams Legal Billing Coordinator Relationship Specialty Start Date End Date Vinicio Dinero MD [address] [place] [address] PCP - General Internal Medicine 10/20/21 12/13/22 Monae Velasquez MD [address] [place] [address] PCP - General Family Practice 12/14/22 Mushtaq Blake MD [address] [place] [address] Medical Oncologist/Hematologi st Hematology and Oncology 09/09/22 Miguel Ángel Sanchez MD [address] [place] [address] Consulting Physician Radiation Oncology 12/09/22 Emelyn Curtis MD [address] [facility] MEDICAL ONCOL[facility]Y, [address], [address] [place] [address] Consulting Physician Medical Oncology 04/17/23 Heena Stephenson MD [address] [facility] [address] [place] [address] Fellow General Surgery 04/17/23 Jeffery Bro MD [address] [facility] [address] [place] [address] Referring Physician Gastroenterology 05/16/23 Anali Flores MD [address] [facility] [address] [place] [address] Consulting Physician Cardiology 05/22/23 [place] [address] [address] [place] [address] Nurse Practitioner Pain Management 05/22/23 [place] [address] [address] [place] [address] Consulting Physician Interventional Radiology 03/14/24 documented as of this encounter
--- OUTSIDE RECORDS SUMMARY | 2025-01-03 12:57 | XMS_ITS | Encounter Summary ---
Author Organization [facility] Address [address] [place] [address] Care Team Providers Care Underground Distribution Engineer Name Role Phone Mushtaq Blake MD Unavailable [phone] Miguel Ángel Sanchez MD Unavailable [phone] Monae Velasquez MD Primary Care Provider Emelyn Curtis MD Unavailable [phone] Heena Stephenson MD Unavailable [phone] Jeffery Bro MD Unavailable [phone] Anali Flores MD Unavailable [phone] Alessandro Dominguez NP Unavailable [phone] Luciano Rodriguez MD Unavailable Encounter Details Date Type Department Care Team (Late st Contact Info) Description 01/04/2024 Telephone [facility] Medical Group Primary Care at [address] [address] Monae Velasquez MD [address] [place] [address] [address] [place] [address] Social History Tobacco Use Types Packs/Day Years Used Date Smoking Tobacco: Every Day Cigarettes 1.5 50 Smokeless Tobacco: Never Comments:At least a pack a d ay Alcohol Use Standard Drinks/Week Comments Not Currently 0 (1 standard drink = 0.6 oz pur e alcohol) [facility] Utilities Answer Date Recorded In [...] often do you attend chur ch or sikhism services? Never 08/31/2023 Do you belong to any clubs o r organizations such as mosque groups, unions, fraternal or athletic groups, or [...] on file Legal Sex Male 2:00 AM MINESWEEPING OFFICER Gender Identity Not on file Sexual [...] documented as of this encounter Care Teams Underground Distribution Engineer Relationship Specialty Start Date End Date Monae Velasquez MD [address] [place] [address] PCP - General Family Practice 12/14/22 Mushtaq Blake MD Medical Oncologist/Hematologi st Hematology and Oncology 09/09/22 Miguel Ángel Sanchez MD [address] [place] [address] Consulting Physician Radiation Oncology 12/09/22 Emelyn Curtis MD [address] DIV IM MEDICAL ONCOLOGY, [address], [address], [address] [place] [address] Consulting Physician Medical Oncology 04/17/23 Heena Stephenson MD [address] [place] [address] Fellow General Surgery 04/17/23 Jeffery Bro MD [address] [place] [address] Referring Physician Gastroenterology 05/16/23 RadhaAnali valdez MD [address] [place] [address] Consulting Physician Cardiology 05/22/23 [place] [address] [place] [address] Nurse Practitioner Pain Management 05/22/23 [place] [address] [place] [address] Consulting Physician Interventional Radiology 03/14/24 documented as of this encounter
--- OUTSIDE RECORDS SUMMARY | 2025-01-03 12:57 | XMS_ITS | Encounter Summary ---
Author Organization [facility] Address [address] [facility] [place] [address] Care Team Providers Care Seam Stayer Name Role Phone Ravinder Street MD Unavailable [phone] MD Unavailable [phone] Andrew Dawson MD Primary Care Provider [phone] Vinicio Dinero MD Primary Care Provider [phone] Reason for Visit * Reason Onset Date Comments MEDICATION REFILL 11/25/2020 Encounter Details Date Type Department Care Team (Late st Contact Info) Description 11/25/2020 Refill [facility] [address] [place] [address] Jony Hernandez MD [address] [facility] [address] [facility]/[place] [address] MEDICATION REFILL Social History Tobacco Use Types [...] documented as of this encounter Care Teams Seam Stayer Relationship Specialty Start Date End Date Andrew Dawson MD PCP - General 09/11/18 12/27/21 Vinicio Dinero MD [address] [place] [address] PCP - General 12/28/[address] MD Resident - PCP Student Resident 08/27/[address] MD Student Resident 08/28/18 documented as of this encounter
--- OUTSIDE RECORDS SUMMARY | 2025-01-03 12:57 | XMS_ITS | Encounter Summary ---
Author Organization [facility] Address [address] [place] [address] Phone Care Team Providers Care Inside Wirer Name Role Phone Marisa Carcamo PAC Primary Care Pro vider Reason for Visit * Reason Comments Medication Refill Encounter Details Date Type Department Care Team (Late st Contact Info) Description 11/07/2022 Refill [facility] - [facility] Medicine - [place] [address] [place] [address] Marisa Carcamo, [facility] [address] [place] [address] Medication Refill Social History Tobacco [...] with Buspirone for at least 6 months R INSTALLER documented in this encounter Plan of Treatment Not on file documented as of this encounter Visit Diagnoses Diagnosis Anxiety Anxiety state, unspecified documented in this encounter Additional Health Concerns Assessment Noted Time PHQ-9 Depression Total Score: 11 021 3:00 PM FLOOR INSTALLER documented as of this encounter Care Teams Inside Wirer Relationship Specialty Start Date End Date Marisa Carcamo PAC [address] [place] [address] PCP - General Physician Tutoring Assistant 07/27/21 12/25/24 documented as of this encounter
--- OUTSIDE RECORDS SUMMARY | 2025-01-03 12:57 | XMS_ITS | Referral Summary ---
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 Continue the buspirone and mirtazapine. They [...] specialist Assessment & Plan (08/10/2023 5:03 PM COMMERCIAL FISHERMAN): Chronic. Per recent notes from Oncology and [...] constipation Assessment & Plan (08/10/2023 5:03 PM COMMERCIAL FISHERMAN): Chronic back pain syndrome. Saw pain management [...] management Assessment & Plan (08/10/2023 5:02 PM COMMERCIAL FISHERMAN): Chronic. Struggles with chronic pain. Was previously [...] management Assessment & Plan (08/10/2023 5:02 PM COMMERCIAL FISHERMAN): Status post prior transaortic valve replacement. Care per Cardiology Chronic diastolic CHF (congestive heart failure) 01/21/2021 Assessment & Plan (03/18/2024 5:22 PM CDT): Chronic. Compensated. Continue current medication. Monitor Assessment & Plan (12/11/2023 5:55 PM CDT): Chronic. Compensated. Continue current prescription medication Assessment & Plan (08/10/2023 5:02 PM COMMERCIAL FISHERMAN): Chronic. Compensated. Continue medication and care per Cardiology Persistent atrial fibrillation 01/20/2021 Assessment & Plan (03/18/2024 5:22 PM CDT): Chronic. Controlled. Continue beta-carlene and anticoagulation. Monitor Assessment & Plan (12/11/2023 5:55 PM CDT): Chronic. Stable. Continue current prescription medication. Continue anticoagulation for stroke prevention Assessment & Plan (08/10/2023 5:01 PM COMMERCIAL FISHERMAN): Chronic. Follows with cardiology. Has plans for upcoming cardiac ablation and placement of pacemaker. Continue medication and care per Cardiology Chronic anticoagulation 02/19/2020 Assessment & Plan (03/18/2024 5:21 PM CDT): Chronic. Bleeding precautions recommended. Assessment & Plan (12/11/2023 5:54 PM CDT): Chronic no signs of spontaneous bleeding. Continue anticoagulation for stroke prevention. Bleeding precautions recommended Assessment & Plan (08/10/2023 5:01 PM COMMERCIAL FISHERMAN): Chronic due to AFib. Discussed bleeding precautions. [...] counseling Assessment & Plan (08/10/2023 5:01 PM COMMERCIAL FISHERMAN): Chronic. Counseled to quit. Reviewed health risks Chronic bilateral low back pain without sciatica 01/18/2017 Assessment & Plan (08/10/2023 5:04 PM COMMERCIAL FISHERMAN): Chronic. Needs to follow up with pain management Panlobular emphysema 11/09/2016 Assessment & Plan (03/18/2024 5:24 PM CDT): Chronic. Breathing is stable. Continue breztri Assessment & Plan (12/11/2023 5:56 PM CDT): Chronic. Uncontrolled. Needs improvement. Noncompliant with inhalers. Restart BReztri. Stressed importance of smoking cessation. No signs of acute exacerbation Assessment & Plan (08/10/2023 5:00 PM COMMERCIAL FISHERMAN): Chronic. Uncontrolled. Noncompliant with inhalers. Stressed importance of taking breast true regularly. Previously did not like any of the powdered inhalers. Still smoking. Patient will be referred to alternative wood setter for management as he does not want to go to his previous 1 at [facility] Dyslipidemia 09/30/2016 Assessment & Plan (03/18/2024 5:23 PM CDT): Chronic. Tolerates atorvastatin. Continue. 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 They defer for today Assessment & Plan (12/11/2023 5:58 PM CDT): Chronic. Stable. Continue atorvastatin Assessment & Plan (08/10/2023 5:05 PM COMMERCIAL FISHERMAN): Chronic. Encouraged to continue his atorvastatin for [...] decompensation Assessment & Plan (08/10/2023 5:04 PM COMMERCIAL FISHERMAN): Patient has a chronic degree of mild [...] nightly Assessment & Plan (08/10/2023 5:01 PM COMMERCIAL FISHERMAN): Chronic, intermittent hypoxemia. Has supplemental oxygen at night. Has been followed by pulmonology but wishes to switch to closer wood setter Leg edema 10/31/2022 11/16/2022 Discomfort of left [...] drink = 0.6 oz pur e alcohol) [facility] Utilities Answer Date Recorded In the past 12 months has [employer] electric, gas, oil, or water company threatened [...] often do you attend chur ch or druze services? Never 08/31/2023 Do you belong to any clubs o r organizations such as mormonism groups, unions, fraternal or athletic groups, or [...] on file Legal Sex Male 2:00 AM COMMERCIAL FISHERMAN Gender Identity Not on file Sexual Orientation [...] on file Medical Devices Implanted Type Area Soakers Supervisor Device Identifier Shelf Expiration Date Model / Serial / Lot St [employer] Inc Tendril Sts 6fr 58cm Is-1 Connector Active Fixation Bipolar Soft 58 - [id number] - [id number] Implanted:Qty: 1 on 08/11/2023 by Leon Rock MD at [facility] Lead Right: Ventricle [employer] Inc 05/25/20262087TC/ 58 / [id number] / [employer] Tendril Sts 6fr 52cm Is-1 Connector Active Fixation Bipolar Soft - [id number] Implanted:Qty: 1 on 08/11/2023 by Leon Rock MD at [facility] Lead Right: Atrial Appendage [employer] Inc 05/25/20268TC/ / / [employer] Quartet 4.7fr 86cm Quadripolar Is-4 Llll Connector 8 Curve Low 1456q/86 - [id number] - [id number] Implanted:Qty: 1 on 08/11/2023 by Leon Rock MD at [facility] Lead Right: Atrial Appendage [employer] 04/24/2026 1456Q/8 6 / [id number] / Haynes [employer] Pacemaker Dual Chamber Lump Roller P Mri Compatible Quadra Allure Mp [id number] - [id number] - [id number] Implanted:Qty: 1 on 08/11/2023 by Leon Rock MD at [facility] Pacemaker Left: Infraclavicular Anterior Chest Wall [employer] [id number] / [id number] / Terumo Medical Andreas Angio-Seal Vip 6fr Closere Device [id number] - [id number] Implanted:Qty: 1 on 06/08/2022 by Demetris Kay MD at [facility] [employer] Andreas 12/23/2022 [id number] / / [id number] Brown Lif[employer]iences Brooke 3 Commander Brown 26mm Transcatheter Ultra Low Profile T3ugb264x - [id number] - [id number] Implanted:Qty: 1 on 10/18/2022 by Demetris Kay MD at [facility] [employer] 05/26/2025 [id number] [id number] / [id number] / Description:Heart valve 3T o r less [employer] Device Clsr Perclose Prostyle Sut-Mediatd Closure-Repair Sys 33779-52 - [id number] Implanted:Qty: 1 on 10/18/2022 by Demetris Kay MD at [facility] [employer] 07/25/2024 50479-9 Haynes [employer] Device Clsr Perclose Prostyle Sut-Mediatd Closure-Repair Sys 64074-52 - [id number] Implanted:Qty: 1 on 10/18/2022 by Demetris Kay MD at [facility] [employer] 07/25/2024 65227-2 Terumo Medical Andreas Angio-Seal Vip 6fr Closere Device 315128 - [id number] Implanted:Qty: 1 on 10/18/2022 by Demetris Kay MD at [facility] 06/24/2023 [id number] / / [id number] Medtronic Inc Coil Embolization Coated Detachable Helical Concerto 4tjd9sy Nylon Ec-6-3-[place] - [id number] Implanted:Qty: 1 on 12/07/2022 at [facility] Medtronic Inc NV-3-4- HELIX / / Medtronic Inc Coil Embolization Coated Detachable Helical Concerto 3jog56mg Nylon Be-3-60-[place] - [id number] Implanted:Qty: 1 on 12/07/2022 at [facility] Medtronic Inc NV-5-20 -HELIX / / [employer]nes [employer] Device Clsr Perclose Prostyle Sut-Mediatd Closure-Repair Sys 60740-62 - [id number] Implanted:Qty: 1 on 12/07/2022 at [facility] [employer] [id number] 09/24/2024 20367-6 3 / / [id number] [employer] Andreas Coil Emolization Coated Detachable Embold 8uzn52we Jena Tungsten [id number] 20 - [id number] Implanted:Qty: 1 on 12/07/2022 at [facility] [employer] Andreas [id number] 08/23/2025 [id number] 20 / / [id number] [employer] Andreas Coil Emolization Coated Detachable Jena Tungsten Embold 6bbp9as [id number] 40 - [id number] Implanted:Qty: 1 on 12/07/2022 at [facility] [employer] Andreas [id number] 40 / / [employer] Andreas Coil Emolization Coated Detachable Embold 3npg9gi Jena Tungsten [id number] 80 - [id number] Implanted:Qty: 1 on 12/07/2022 at [facility] [employer] Andreas [id number] 07/31/2025 [id number] 80 / / [id number] Ir Marker .5mm X 1cm Preld 21ga 15cm Long Ndl Visicoil - [id number] Implanted:Qty: 1 on 01/10/2023 at [facility] Radio Med Andreas 11/22/2025 SN-050- 010-PL1 [id number] Ir Marker .5mm X 1cm Preld 21ga 15cm Long Ndl Visicoil - [id number] Implanted:Qty: 1 on 01/10/2023 at [facility] [employer] Andreas 04/24/2025 SN-050- 010-PL1 [id number] Ir Marker .5mm X 1cm Preld 21ga 15cm Long Ndl Visicoil - [id number] Implanted:Qty: 1 on 01/10/2023 at [facility] [employer] Andreas 11/22/2025 SN-050- 010-PL1 [id number] Ir Marker .5mm X 1cm Preld 21ga 15cm Long Ndl Visicoil - [id number] Implanted:Qty: 1 on 01/10/2023 at [facility] [employer] Andreas 11/22/2025 SN-050- 010-PL1 [id number] Medtronic Inc Tyrx Absorbable Antibacterial Envelope-Large 3.3x2.9in Ujgl4953 - [id number] Implanted:Qty: 1 on 09/01/2023 by Leon Rock MD at [facility] Med[employer]onic Inc 05/18/2024 [id number] / / [id number] Terumo Medical Andreas Angio-Seal Vip 6fr Closere Device [id number] - [id number] Implanted:Qty: 1 on 01/09/2024 at [facility] [employer] Andreas 08/02/2024 [id number] / / [id number] [employer] Andreas Coil Emolization Coated Detachable Embold 6ovx22gb Jena Tungsten [id number] 50 - [id number] Implanted:Qty: 1 on 01/09/2024 at [facility] [employer] Andreas [id number] 08/15/2026 [id number] 50 / / [id number] [employer] Andreas Coil Emolization Coated Detachable Embold 1evx47hn Jena Tungsten [id number] 00 - [id number] Implanted:Qty: 1 on 01/09/2024 at [facility] [employer] Andreas [id number] 09/07/2026 [id number] 00 / / [id number] [employer] Andreas Coil Emolization Coated Detachable Jena Tungsten Embold 9dmw7iu [id number] 40 - [id number] Implanted:Qty: 1 on 01/09/2024 at [facility] [employer] Andreas [id number] 07/25/2026 [id number] 40 / / [id number] TerIngresse Angio-Seal Vip 6fr Closere Device [id number] - [id number] Implanted:Qty: 1 on 03/14/2024 at [facility] [employer] Andreas 08/28/2024 [id number] / / [id number] Explanted Type Area Soakers Supervisor Device Identifier Shelf Expiration Date Model / Serial / Lot Storone Medical Inc Guy Flexi-Stent 7fr 9cm Small Pigtail Flexible .035in Stent 6575 - [id number] Implanted:Qty: 1 on 03/15/2023 by Rusty Pendleton MD at [facility] Explanted:Qty: 1 on 03/17/2023 by Ronald Cortez MD at [facility] Stent N/A: Pancreas Storone Medical Inc [id number] 09/25/2021 6575 / / [id number] [employer] [employer] Andreas Wallflex 10mm X 60mm Fully Covered Biliary [id number] - [id number] Implanted:Qty: 1 on 03/15/2023 by Rusty Pendleton MD at [facility] Explanted:Qty: 1 on 03/17/2023 by Ronald Cortez MD at [facility] Stent N/A: Bile Duct [employer] Andreas [id number] 12/05/2024 [id number] / / [id number] Procedures Procedure Name Priority Date/Time Associated Diagnosis [...] abdomen or pelvis abnormality. Stat report by [facility] Electronically signed by: Misbah Li M.D. [...] abdomen or pelvis abnormality. Stat report by [facility] Electronically signed by: Misbah Li M.D. Iqra Hedrick MD IMG CT PROCEDURES Gladys l Result * (ABNORMAL) Hepatitis C (HCV) RNA PCR, quantitative (05/13/2016 9:11 AM CDT) [facility] HBsAb log IU/mL 2.0 () log IU 6 7:33 AM [facility] HISTORICAL RESULTS Comment: INTERPRETIVE INFORMATION: Hepatitis C [...] IU/mL 110 () IU/mL 05/18/2016 7:33 AM [facility] HISTORICAL RESULTS HCV RNA result Detected( H) Not Detected 05/18/2016 7:33 AM [facility] HISTORICAL RESULTS HCV RNA See Note () 05/18/2016 7:33 AM CDT [facility] HISTORICAL RESULTS Comment: Access SentiOne Enhanced Report using either link below: -Direct access: [email or web address] -Enter Username, Password: [email or web address] Username: [email or web address] Password: [email or web address] Performed by [facility], [address] [place] [id number] [email or web address], Chico Quevedo MD, Lab. Director 05/13/2016 9:11 AM CDT 05/13/2016 9:22 AM CDT us Janis Vasquez NP LAB MICROBIOLOGY - GENERAL ORDERABLES Final Result Performing Organization Address [facility]/ZIP Co de Phone Number [facility] HISTORICAL RESULTS * Occult blood, fecal non neoplasm screening (05/01/2016 10:10 AM CDT) Stool Occult Blood NEGATIVE NEGATIVE 05/01/2016 12:14 PM CDT [facility] HISTORICAL RESULTS 05/01/2016 10:1 0 AM CDT 05/01/2016 11:57 AM CDT Narrative [facility] HISTORICAL RESULTS - 05/01/2016 12:14 PM CDT Collected By us Anthony Zamudio MD LAB BODY FLUIDS AND ST OOLS ORDERABLES Final Result [facility] HISTORICAL RESULTS from Last 3 Months or Most Recently Relevant to Health Maintenance Insurance [facility] MEDICARE ADVANTAGE [facility] Address: [address] [address] Member Subscriber Plan / Payer (Ef fective 2021-Present) Name:Guero Ahmadi Relation to Subscriber:Self Name:Guero Ahmadi Payer ID:[id number] (NAIC) Type:UHC MEDICARE Address: [place] [id number] ID[employer] MEDICARE ADVANTAGE Advance Directives For more information, please contact: [phone] * Full Code (Latest Code Status on [...] 11:04 AM 08/12/2023 2:30 PM Care Teams Trim Setter Relationship Specialty Start Date End Date Monae Velasquez MD [address] [place] [address] PCP - General Family Practice 12/14/22 Mushtaq Blake MD Medical Oncologist/Hematologi st Hematology and Oncology 09/09/22 Miguel Ángel Sanchez MD [address] [place] [address] Consulting Physician Radiation Oncology 12/09/22 Emelyn Curtis MD [address] DIV IM MEDICAL ONCOLOGY, [address] [place] [address] Consulting Physician Medical Oncology 04/17/23 Heena Stephenson MD [address] [place] [address] Fellow General Surgery 04/17/23 Jeffery Bro MD [address] [place] [address] Referring Physician Gastroenterology 05/16/23 Anali Flores MD [address] [place] [address] Consulting Physician Cardiology 05/22/23 [place] [address] [place] [address] Nurse Practitioner Pain Management 05/22/23 [place] [address] [place] [address] Consulting Physician Interventional Radiology 03/14/24
--- OUTSIDE RECORDS SUMMARY | 2025-01-03 12:57 | XMS_ITS | Encounter Summary ---
Author Organization [facility] Address [address] [place] [address] Phone Care Team Providers Care Animal Tech Name Role Phone Andrew Dawson MD Primary Care Provider [phone] Vinicio Dinero MD Primary Care Provider [phone] Marisa Carcamo PAC Unavailable Marisa Carcamo PAC Primary Care Pro vider Reason for Visit * Reason Onset Date Comments Medication Refill Medication Refill 06/08/2020 Medication Refill 06/10/2020 Encounter Details Date Type Department Care Team (Late st Contact Info) Description 06/02/2020 Refill [facility] - Family Medicine [facility] [address] [place] [address] Andrew Dawson MD [address] [address] Medication Refill; Medication Refill; Medication Refill Social [...] 1 month ago Chronic atrial fibrillation (HCC) [facility] Sera Spring APN, CNP 1 month ago Tachycardia [facility] Sera Diop APN, CNP 2 months ago Chronic bilateral low back pain without sciatica [facility] Andrew Conway MD 4 months ago Liver [facility] Andrew Dawson MD Upcoming Appointments MANAGER MARITIME - Recent and Past Visits Recent Visits Date Type Provider Dept 05/12/20 Office Visit Andrew Dawson MD [facility] 04/17/20 Office Visit Sera Spring APN, JOY [facility] 04/15/20 Office Visit Sera Spring APN, ANIMAL CARETAKER [facility] 03/12/20 Office Visit Andrew Dawson MD [facility] 01/08/20 Telemedicine Andrew Dawson MD [facility] 12/31/19 Telemedicine Andrew Dawson MD [facility] 10/09/19 Office Visit Sera Spring APN, JOY [facility] 09/02/19 Office Visit Andrew Dawson MD [facility] 08/26/19 Office Visit Sánchez Jenkins APN, JOY [facility] 08/20/19 Office Visit Andrew Dawson MD [facility] [place] Showing recent visits within past 460 [...] 19 08/02/2021 08/02/2021 08/22/2021 12:1 6 AM SETTER UP COVID - 19 11/03/2021 11/03/2021 11/23/2021 12:1 6 AM SETTER UP Assessment Noted Time PHQ-9 Depression Total Score: 0 03/12/20 12:31 PM CDT documented as of this encounter Care Teams Animal Tech Relationship Specialty Start Date End Date Andrew Dawson MD [address] [address] PCP - General Family Medicine 11/08/16 01/29/21 Vinicio Dinero MD [address] [place] [address] PCP - General Internal Medicine 01/30/21 07/26/21 Marisa Carcamo, [facility] [address] [place] [address] PCP - General Physician Life Specialist 07/27/21 12/25/24 Marisa Carcamo, [facility] [address] [place] [address] Physician Life Specialist Physician Life Specialist 01/30/21 documented as of this encounter
--- OUTSIDE RECORDS SUMMARY | 2025-01-03 12:57 | XMS_ITS | Encounter Summary ---
Author Organization [facility] Address [address] [place] [address] Phone Care Team Providers Care Dietary Director Name Role Phone Chiquis Carcamochon Doanldsonelle PAC Primary Care Pro vider Reason for Visit * Reason Comments Medication Refill Encounter Details Date Type Department Care Team (Late st Contact Info) Description 05/23/2022 Refill [facility] [address] [place] [address] Andrew Dawson MD [address] [address] Medication Refill Social History Tobacco Use Types [...] Office Visit Marisa Carcamo PAC [facility] 11/08/21 Office Visit Marisa Carcamo PAC [facility] 08/02/21 Office Visit Marisa Carcamo PAC [facility] 06/04/21 Office Visit Marisa Carcamo PAC [facility] Showing recent visits within past 365 days [...] Depression Total Score: 11 021 3:00 PM STARTER MECHANIC documented as of this encounter Care Teams Dietary Director Relationship Specialty Start Date End Date Marisa Carcamo PAC [address] [place] [address] PCP - General Physician Information Security Risk Analyst 07/27/21 12/25/24 documented as of this encounter
--- OUTSIDE RECORDS SUMMARY | 2025-01-03 12:57 | XMS_ITS | Encounter Summary ---
Author Organization [facility] Address [address] [place] [address] Phone Care Team Providers Care Shape Carver Name Role Phone Andrew Dawson MD Primary Care Provider [phone] Vinicio Dinero MD Primary Care Provider [phone] Marisa Carcamo PAC Unavailable Marisa Carcamo PAC Primary Care Pro vider Reason for Visit * Reason Comments Medication Refill Encounter Details Date Type Department Care Team (Late st Contact Info) Description 02/28/2020 Refill [facility] [address] [place] [address] Andrew Dawson MD [address] [address] Medication Refill Social History Tobacco Use Types [...] Outpatient Visits 1 month ago Liver lesion [facility] Andrew Dawson MD 1 month ago Muscular chest pain [facility] Andrew Dawson MD 4 months ago Chronic diastolic CHF (congestive heart failure) (HCC) [facility] Sera Spring APN, CNP 5 months ago Chronic bilateral low back pain without sciatica [facility] Andrew Dawson MD 6 months ago Chronic bilateral low back pain without sciatica [facility] Sánchez Jenkins APN, JOY Upcoming Appointments Future Appointments In 1 month Althea Barton APN, JOY [facility], [facility] documented in this encounter Plan of Treatment Not on file documented as of this encounter Visit Diagnoses Not on filedocumented in this encounter Additional Health Concerns Infection Onset Date Last Indicated Resolved Time COVID - 19 08/02/2021 08/02/2021 08/22/2021 12:1 6 AM NOCTURNIST PHYSICIAN COVID - 19 11/03/2021 11/03/2021 11/23/2021 12:1 6 AM NOCTURNIST PHYSICIAN Assessment Noted Time PHQ-9 Depression Total Score: 0 10/09/19 20 8:42 AM NOCTURNIST PHYSICIAN documented as of this encounter Care Teams Shape Carver Relationship Specialty Start Date End Date Andrew Dawson MD [address] [address] PCP - General Family Medicine 11/08/16 01/29/21 Vinicio Dinero MD [address] [place] [address] PCP - General Internal Medicine 01/30/21 07/26/21 Marisa Carcamo, PAC [address] [place] [address] PCP - General Physician Riverboat Captain 07/27/21 12/25/24 Marisa Carcamo, PAC [address] [place] [address] Physician Riverboat Captain Physician Riverboat Captain 01/30/21 documented as of this encounter
--- OUTSIDE RECORDS SUMMARY | 2025-01-03 12:57 | XMS_ITS | Encounter Summary ---
Author Organization [facility] Facility Care Team Providers Care Food Technician Name Role Phone Andrew Dawson MD Primary Care Provider [phone] Andrew Dawson MD Primary Care Provider [phone] Vinicio Dinero MD Primary Care Provider +- [phone] Mushtaq Blake MD Unavailable [phone] Miguel Ángel Sanchez MD Unavailable [phone] Monae Velasquez MD Primary Care Provider Emelyn Curtis MD Unavailable [phone] Heena Stephenson MD Unavailable [phone] Jeffery Bro MD Unavailable [phone] Anali Flores MD Unavailable [phone] Alessandro Dominguez NP Unavailable [phone] Luciano Rodriguez MD Unavailable Encounter Details Date Type Department Care Team (Latest Contact Info) Description 02/15/2015 Orders Only [facility] Provider, MD Sourav [address] [place] [address] Social History Tobacco Use Types Packs/Day Years Used Date Smoking Tobacco: Never Assessed Sex and Gender Information Value Date Recorded Sex Assigned at Not on file Legal Sex Male 2:00 AM LYE BOILER Gender Identity Not on file Sexual Orientation [...] as of this encounter Care Teams Food Technician Relationship Specialty Start Date End Date Andrew Dawson MD PCP - General Cardiology 12/10/18 10/23/19 Andrew Dawson MD [address] [address] PCP - General Family Medicine 10/24/19 10/19/21 Vinicio Dinero MD [address] [place] [address] PCP - General Internal Medicine 10/20/21 12/13/22 Monae Velasquez MD [address] [place] [address] PCP - General Family Practice 12/14/22 Mushtaq Blake MD [address] [place] [address] Medical Oncologist/Hematologi st Hematology and Oncology 09/09/22 Miguel Ángel Sanchez MD [address] [place] [address] Consulting Physician Radiation Oncology 12/09/22 Emelyn Curtis MD [address] DIV IM MEDICAL ONCOLOGY, [address]A, 7B, 7C [place] [address] Consulting Physician Medical Oncology 04/17/23 Heena Stephenson MD [address]B [place] [address] Fellow General Surgery 04/17/23 Jeffery Bro MD [address] [facility] [address] [place] [id number] Referring Physician Gastroenterology 05/16/23 Anali Flores MD [address] [facility] [address] [place] [address] Consulting Physician Cardiology 05/22/23 Alessandro Dominguez AIR MOVING TECHNICIAN [address] [place] [address] Nurse Practitioner Pain Management 05/22/23 [place] [address] [place] [address] Consulting Physician Interventional Radiology 03/14/24 documented as of this encounter
--- OUTSIDE RECORDS SUMMARY | 2025-01-03 12:57 | XMS_ITS | Encounter Summary ---
Author Organization [facility] Facility Care Team Providers Care Educational/Development Assistant Name Role Phone Andrew Dawson MD Primary Care Provider [phone]- [phone] Andrew Dawson MD Primary Care Provider [phone] Vinicio Dinero MD Primary Care Provider [phone]- [phone] Mushtaq Blake MD Unavailable [phone] Miguel Ángel Sanchez MD Unavailable [phone] Monae Velasquez MD Primary Care Provider Emelyn Curtis MD Unavailable [phone] Heena Stephenson MD Unavailable [phone] Jeffery Bro MD Unavailable [phone] Anali Flores MD Unavailable [phone] Alessandro Dominguez NP Unavailable [phone] Luciano Rodriguez MD Unavailable Encounter Details Date Type Department Care Team (Latest Contact Info) Description 07/02/2016 Orders Only [facility] CLINCONV Provider, MD Sourav [address] [place] [address] Social History Tobacco Use Types Packs/Day Years Used Date Smoking Tobacco: Never Assessed Sex and Gender Information Value Date Recorded Sex Assigned at Not on file Legal Sex Male 2:00 AM PSYCHIATRIC ARNP Gender Identity Not on file Sexual Orientation [...] documented as of this encounter Care Teams Educational/Development Assistant Relationship Specialty Start Date End Date Andrew Dawson MD PCP - General Cardiology 12/10/18 10/23/19 Andrew Dawson MD [address] [address] PCP - General Family Medicine 10/24/19 10/19/21 Vinicio Dinero MD [address] [place] [address] PCP - General Internal Medicine 10/20/21 12/13/22 Monae Velasquez MD [address] [place] [place] [address] PCP - General Family Practice 12/14/22 Mushtaq Blake MD [address] [place] [address] Medical Oncologist/Hematologi st Hematology and Oncology 09/09/22 Miguel Ángel Sanchez MD [address] DEPT [place] [address] Consulting Physician Radiation Oncology 12/09/22 Emelyn Curtis MD [address] DIV IM MEDICAL ONCOLOGY, [address]A, 7B, [address] [address] Consulting Physician Medical Oncology 04/17/23 Heena Stephenson MD [address] [place] [address] Fellow General Surgery 04/17/23 Jeffery Bro MD [address] [facility] [address] [place] [id number] Referring Physician Gastroenterology 05/16/23 Anali Flores MD [address] [facility] [address] [place] [address] Consulting Physician Cardiology 05/22/23 Alessandro Dominguez EMT BASIC [address] [place] [address] Nurse Practitioner Pain Management 05/22/23 [place] [address] [place] [address] Consulting Physician Interventional Radiology 03/14/24 documented as of this encounter
--- OUTSIDE RECORDS SUMMARY | 2025-01-03 12:57 | XMS_ITS | Encounter Summary ---
Author Organization [facility] Health Address [address] [place] [address] Care Team Providers Care Weighmaster Name Role Phone Ravinder Street MD Unavailable [phone] MD Unavailable [phone] Andrew Dawson MD Primary Care Provider [phone] Vinicio Dinero MD Primary Care Provider [phone] Reason for Visit * Reason Onset Date Comments MEDICATION REFILL 12/24/2018 Encounter Details Date Type Department Care Team (Late st Contact Info) Description 12/24/2018 Refill [facility] General Internal Medicine [address] [facility] 206 [place] [address] Andrew Dawson MD [address] [place] [address] [address] [place] [address] MEDICATION REFILL Social History Tobacco [...] documented as of this encounter Care Teams Weighmaster Relationship Specialty Start Date End Date Andrew Dawson MD PCP - General 09/11/18 12/27/21 Vinicio Dinero MD [address] [place] [address] PCP - General 12/28/[address] MD Resident - PCP Student Resident 08/27/[address] MD Student Resident 08/28/18 documented as of this encounter
--- OUTSIDE RECORDS SUMMARY | 2025-01-03 12:57 | XMS_ITS | Encounter Summary ---
Author Organization [facility] Address [address] [place] [address] Phone Care Team Providers Care Lease Out Worker Name Role Phone Chiquis Carcamochon Donaldsonelle PAC Primary Care Pro vider Reason for Visit * Reason Comments Medication Refill Encounter Details Date Type Department Care Team (Late st Contact Info) Description 01/24/2022 Refill [facility] - Family Medicine [facility] [address]2 [place] [address] Andrew Dawson MD [address] [address] Medication Refill Social History Tobacco Use Types [...] Office Visit Marisa Carcamo, PAC [facility] 11/08/21 Office Visit Marisa Carcamo, PAC [facility] 08/02/21 Office Visit Marisa Carcamo, PAC [facility] 06/04/21 Office Visit Marisa Carcamo, PAC [facility] 03/19/21 Office Visit Marisa Carcamo, PAC [facility] 02/01/21 Office Visit Marisa Carcamo, PAC [facility] Showing recent visits within past 365 days [...] Depression Total Score: 11 021 3:00 PM FULLER BRUSH WORKER documented as of this encounter Care Teams Lease Out Worker Relationship Specialty Start Date End Date Marisa Carcamo PAC [address] [place] [address] PCP - General Physician Bowling Ball Grader 07/27/21 12/25/24 documented as of this encounter
--- OUTSIDE RECORDS SUMMARY | 2025-01-03 12:57 | XMS_ITS | Encounter Summary ---
Author Organization [facility] Address [address] [place] [address] Phone Care Team Providers Care Messaging Architect Name Role Phone Marisa Carcamo PAC Primary Care Pro vider Reason for Visit * Reason Comments Medication Refill Encounter Details Date Type Department Care Team (Late st Contact Info) Description 05/23/2022 Refill [facility] - Internal Medicine - [place] [address] [place] [address] Marisa Carcamo, [facility] [address] [place] [address] Medication Refill Social History [...] Depression Total Score: 11 021 3:00 PM BILINGUAL TEACHER documented as of this encounter Care Teams Messaging Architect Relationship Specialty Start Date End Date Marisa Carcamo PAC [address] [place] [address] PCP - General Physician Bobbin Marker 07/27/21 12/25/24 documented as of this encounter
--- OUTSIDE RECORDS SUMMARY | 2025-01-03 12:57 | XMS_ITS | Encounter Summary ---
Author Organization [facility] Address [address] [facility] [place] [address] Care Team Providers Care Dairy Hand Name Role Phone Andrew Dawson MD Primary Care Provider [phone] MD Unavailable [phone] Maddi Cantrell DO Primary Care Provider [phone] MD Unavailable [phone] Andrew Dawson MD Primary Care Provider [phone] Vinicio Dinero MD Primary Care Provider [phone] Reason for Visit * Reason Onset Date Comments MEDICATION REFILL 08/24/2018 Refill Request 08/27/2018 Encounter Details Date Type Department Care Team (Late st Contact Info) Description 08/24/2018 Refill [facility] General Internal Medicine [address] [facility] 206 [place] [address] Andrew Dawson MD [address] [place] [address] [address] [place] [address] MEDICATION REFILL; Refill Request Social History Tobacco [...] to see how patient responds as weaning. [place] PDMP reviewed and only opioid prescription from November found. However, [facility] pharmacy reportspatient was receiving up to 90 1 mg alprazolam tabs until December through them. No refills with them from December until June when received 30 tabs from [place]'s ED physician. Then received 20 tabs at hospital discharge. Need to discuss further with patient. Note in [facility] computer that notes no refills to be given early and that [place] PDMP needs to reviewed regularly (another name in PDMP?). Will have Dr. Street follow up with patient to obtain further history as unclear if receiving medication for several months and have concerns with longterm use of 1 mg BID-TID. Would advocate need to see psychiatry to further assess and need records from previous PCP. Additionally spoke with Danisha in system who reports that patient has a prescription from February for alprazolam which was not ever filled and has not been filling meds with them regularly. GED CARE SPECIALIST * Telephone Encounter - Denae Rausch - 08/28/2018 2:41 PM CST [facility] Pharmacy calling back in with two issues. 1) [facility] has been waiting 4+ days for clarification [...] forwarded to PCP and not resident per [facility] request d/t patient being upset about extended wait time. GED CARE SPECIALIST * Telephone Encounter - Denae Rausch - 08/28/2018 8:32 AM CST Patient calling to check on refill request for Xanax made on 07-28-18. Patient made aware that request is pending with MD. Patient requested that request be sent back to MD high priority. GED CARE SPECIALIST * Telephone Encounter - Анна Mathew, ZANE - 08/27/2018 1:18 PM MANAGED CARE SPECIALIST Patient's sister calling again to check on status of xanax refill. Also states the pharmacy is unable to fill prednisone prescription due to needing clarification on directions. Please call [facility] or patient sister back today. [phone] GED CARE SPECIALIST * Telephone Encounter - Kari Finley, ZANE - 08/27/2018 8:22 AM CST Telephone call from patient. Patient stated that he did get his Prednisone but he did not get the Xanax. Patient is requesting that the Xanax be refilled [place] as he has been out of it for a week. GED CARE SPECIALIST * Telephone Encounter - Mehnaz Gutierrez - [...] no routed to [facility] scheduling ONLY no. 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
--- OUTSIDE RECORDS SUMMARY | 2025-01-03 12:57 | XMS_ITS | Encounter Summary ---
Author Organization [facility] Address [address] [place] [address] Phone Care Team Providers Care Review Engineer Name Role Phone Andrew Dawson MD Primary Care Provider Vinicio Dinero MD Primary Care Provider [phone] Marisa Carcamo PAC Unavailable Marisa Carcamo PAC Primary Care Pro vider Reason for Visit * Reason Comments Medication Refill Encounter Details Date Type Department Care Team (Late st Contact Info) Description 03/17/2020 Refill [facility] - Family Medicine [facility] [place] [address] [place] [address] Andrew Dawson MD #[address] [address] Medication Refill Social History Tobacco Use Types [...] [facility] Sera pSring APN, DESTINATION SPECIALIST 6 months ago Chronic bilateral low back pain without sciatica [facility] Andrew Dawson MD Upcoming Appointments Future Appointments In 6 days Kaylynn Lockhart, POLY AREA SUPERVISOR [facility] In 1 week Kaylynn Lockhart, POLY AREA SUPERVISOR [facility] In 2 weeks Sarah Hilton, PT [facility] Powered by [employer] - 03/17/2020 12:45 PM The requested medication is not on the active medication list. documented in this encounter Plan of Treatment Not on file documented as of this encounter Visit Diagnoses Not on filedocumented in this encounter Additional Health Concerns Infection Onset Date Last Indicated Resolved Time COVID - 19 08/02/2021 08/02/2021 08/22/2021 12:1 6 AM NEWSPAPER CARRIER COVID - 19 11/03/2021 11/03/2021 11/23/2021 12:1 6 AM NEWSPAPER CARRIER Assessment Noted Time PHQ-9 Depression Total Score: 0 03/12/20 20 12:31 PM CDT documented as of this encounter Care Teams Review Engineer Relationship Specialty Start Date End Date Andrew Dawson MD #[address] [address] PCP - General Family Medicine 11/08/16 01/29/21 Vinicio Dinero MD [address] [place] [address] PCP - General Internal Medicine 01/30/21 07/26/21 Marisa Carcamo, PAC [address] [place] [address] PCP - General Physician Burnishing Machine Operator 07/27/21 12/25/24 Marisa Carcamo, PAC [address] [place] [address] Physician Burnishing Machine Operator Physician Burnishing Machine Operator 01/30/21 documented as of this encounter
--- OUTSIDE RECORDS SUMMARY | 2025-01-03 12:57 | XMS_ITS | Encounter Summary ---
Author Organization [facility] Address [address] [place] [address] Phone Care Team Providers Care Agency Sales Director Name Role Phone Marisa Carcmao PAC Primary Care Pro vider Reason for Visit * Reason Comments Medication Refill Encounter Details Date Type Department Care Team (Late st Contact Info) Description 07/01/2023 Refill [facility] - Family [facility] #2 [place] [address] Marisa Carcamo, PAC [address] [facility] [facility] [place] [address] Medication Refill Social History Tobacco [...] Depression Total Score: 11 021 3:00 PM VALET RUNNER documented as of this encounter Care Teams Agency Sales Director Relationship Specialty Start Date End Date Marisa Carcamo PAC [address] [place] [address] PCP - General Physician In Flight Crew Member 07/27/21 12/25/24 documented as of this encounter
--- OUTSIDE RECORDS SUMMARY | 2025-01-03 12:57 | XMS_ITS | Encounter Summary ---
Author Organization [facility] Address [address] [place] [address] Phone Care Team Providers Care Stone Banker Name Role Phone Marisa Carcamo PAC Primary Care Pro vider Reason for Visit * Reason Comments Medication Refill Encounter Details Date Type Department Care Team (Late st Contact Info) Description 04/21/2022 Refill [facility] - Internal Medicine - [place] [address] [place] [address] Marisa Carcamo, [facility] [address] [place] [address] Medication Refill Social History Tobacco Use Types [...] Total Score: 11 08/02/2 021 3:00 PM REPORTING ANALYST documented as of this encounter Care Teams Stone Banker Relationship Specialty Start Date End Date Marisa Carcamo, [facility] [address] [place] [address] PCP - General Physician Upholstery Cutter 07/27/21 12/25/24 documented as of this encounter
--- OUTSIDE RECORDS SUMMARY | 2025-01-03 12:57 | XMS_ITS | Encounter Summary ---
Author Organization [facility] Address [address] [place] [address] Phone Care Team Providers Care Metal Refiner Name Role Phone Andrew Dawson MD Primary Care Provider Vinicio Dinero MD Primary Care Provider [phone] Marisa Carcamo PAC Unavailable Marisa Carcamo PAC Primary Care Pro vider Reason for Visit * Reason Comments Medication Refill Encounter Details Date Type Department Care Team (Late st Contact Info) Description 07/08/2020 Refill [facility] - Family Medicine [facility] #2 [place] [address] Andrew Dawson MD #[address] [address] Medication Refill Social History Tobacco Use Types [...] 1 month ago Chronic atrial fibrillation (HCC) [facility] Andrew Lopez MD 2 months ago Chronic atrial fibrillation (HCC) [facility] S[facility] William APN, CNP 2 months ago Tachycardia [facility] [place] [place] APN, CNP 3 months ago Chronic bilateral low back pain without sciatica [facility] Andrew Lopez MD 6 months ago Liver lesion [facility] Andrew Lopez MD Upcoming Appointments COLLEGE COUNSELOR - Recent and Past Visits Recent Visits [...] 10/09/19 Office Visit Sera Spring APN, JOY [facility] 09/02/19 Office Visit Andrew Dawson MD [facility] 08/26/19 Office Visit Sánchez Jenkins APN, SHEET METAL WORKER [facility] 08/20/19 Office Visit Andrew Dawson MD [facility] Showing recent visits [...] 19 08/02/2021 08/02/2021 08/22/2021 12:1 6 AM FINANCIAL RETIREMENT PLAN SPECIALIST COVID - 19 11/03/2021 11/03/2021 11/23/2021 12:1 6 AM FINANCIAL RETIREMENT PLAN SPECIALIST Assessment Noted Time PHQ-9 Depression Total Score: 0 03/12/20 20 12:31 PM CDT documented as of this encounter Care Teams Metal Refiner Relationship Specialty Start Date End Date Andrew Dawson MD #[address] [address] PCP - General Family Medicine 11/08/16 01/29/21 Vinicio Dinero MD [address] [place] [address] PCP - General Internal Medicine 01/30/21 07/26/21 Marisa Carcamo, [facility] [address] [place] [address] PCP - General Physician Security Services Manager 07/27/21 12/25/24 Marisa Carcamo, [facility] [address] [place] [address] Physician Security Services Manager Physician Security Services Manager 01/30/21 documented as of this encounter
--- OUTSIDE RECORDS SUMMARY | 2025-01-03 12:57 | XMS_ITS | Encounter Summary ---
Author Organization [facility] Healthcare Address [address] [place] [address] Care Team Providers Care Subassembler Name Role Phone Mushtaq Blake MD Unavailable [phone] Miguel Ángel Sanchez MD Unavailable [phone] Monae Velasquez MD Primary Care Provider Emelyn Curtis MD Unavailable [phone] Heena Stephenson MD Unavailable + [phone] Jeffery Bro MD Unavailable [phone] Anali Flores MD Unavailable [phone] Alessandro Dominguez NP Unavailable [phone] Luciano Rodriguez MD Unavailable Encounter Details Date Type Department Care Team (Late st Contact Info) Description 01/05/2023 Telephone [facility] - Interventional Radiology [address] [place] [address] Amanda Valenzuela, RN Social History [...] on file Legal Sex Male 2:00 AM FORGING PRESS 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 TENDER Gender Identity Not on file Sexual Orientation Not on file 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 Not on file Not on file documented as of this encounter Plan of Treatment Not on file documented as of this encounter Results * (ABNORMAL) Basic metabolic panel (01/10/2023 9:41 AM CDT) Sodium 139 135 - 145 mmol/L [facility] Potassium, pl 4.5 3.3 - 4.9 mmol/L [facility] Chloride 106 97 - 110 mmol/L [facility] CO2 27 22 - 32 mmol/L [facility] Anion gap 6 2 - 15 mmol/L [facility] BUN 27(H) 8 - 25 mg/dL [facility] Creatinine 1.54(H) 0.80 - 1.30 mg/dL [facility] Glucose 97 70 - 199 mg/dL [facility] Comment: Interpretive Data Fasting glucose >/= 126 [...] 2022. Calcium 9.3 8.5 - 10.3 mg/dL [facility] Blood 01/10/2023 9:41 AM CDT 01/10/2023 10:19 AM CDT us Oscar Mcnair MD LAB BLOOD ORDERABLES Gladys l Result Performing Organization Address [facility] Co de Phone Number [facility] [address] [place], [place] [id number] * (ABNORMAL) CBC with auto differential (01/10/2023 9:41 AM CDT) WBC 10.5(H) 3.8 - 9.9 K/cumm [facility] Hgb 14.9 13.0 - 17.5 g/dL [facility] Hct 45.3 38.9 - 50.3 % [facility] Plt 154 150 - 400 K/cumm [facility] MPV 10.3 9.1 - 12.3 fL [facility] RBC 4.39 4.30 - 5.80 M/cumm [facility] MCV 103.2(H) 81.3 - 96.4 fL [facility] MCH 33.9(H) 27.1 - 33.3 pg [facility] MCHC 32.9 32.3 - 35.7 g/dL [facility] RDW CV 13.5 11.1 - 14.9 % [facility] RDW SD 51.4(H) 35.7 - 48.1 fL [facility] NRBC abs 0.00 0.00 - 0.01 K/cumm [facility] Blood 01/10/2023 9:41 AM CDT 01/10/2023 10:19 AM CDT Oscar Mcnair MD LAB BLOOD ORDERABLES Gladys l Result Performing Organization Address [facility]/ZIP Co de Phone Number [facility] [address] Department [place], [place] [id number] documented in this encounter Visit Diagnoses Diagnosis Hepatocellular carcinoma (HCC)- Primary Malignant neoplasm of liver, primary documented in this encounter Additional Health Concerns Infection Onset Date Last Indicated Resolved Time COVID: Suspected 05/04/2023 05/04/2023 05/04/2023 8:26 PM CDT COVID: Suspected 03/04/2024 03/04/2024 03/04/2024 4:06 PM CDT documented as of this encounter Care Teams Subassembler Relationship Specialty Start Date End Date Monae Velasquez MD [address] [place] [address] PCP - General Family Practice 12/14/22 Mushtaq Blake MD Medical Oncologist/Hematologi st Hematology and Oncology 09/09/22 Miguel Ángel Sanchez MD [address] [place] [address] Consulting Physician Radiation Oncology 12/09/22 Emelyn Curtis MD [address] DIV IM MEDICAL ONCOLOGY, [address], [address], [address] [place] [address] Consulting Physician Medical Oncology 04/17/23 Heena Stephenson MD [address] [place] [address] Fellow General Surgery 04/17/23 Jeffery Bro MD [address] [address] Referring Physician Gastroenterology 05/16/23 Anali Flores MD [address] [place] [address] Consulting Physician Cardiology 05/22/23 Alessandro Dominguez FIBER GLASS WORKER [address] [place] [address] Nurse Practitioner Pain Management 05/22/23 [place] [address] [place] [address] Consulting Physician Interventional Radiology 03/14/24 documented as of this encounter
--- OUTSIDE RECORDS SUMMARY | 2025-01-03 12:57 | XMS_ITS | Encounter Summary ---
Author Organization [facility] Facility Care Team Providers Care Business Applications Manager Name Role Phone Andrew Dawson MD Primary Care Provider [phone] Andrew Dawson MD Primary Care Provider [phone] Vinicio Dinero MD Primary Care Provider [phone] Mushtaq Blake MD Unavailable [phone] Miguel Ángel Sanchez MD Unavailable [phone] Monae Velasquez MD Primary Care Provider Emelyn Curtis MD Unavailable [phone] Heena Stephenson MD Unavailable [phone] Jeffery Bro MD Unavailable [phone] Anali Flores MD Unavailable [phone] Alessandro Dominguez NP Unavailable [phone] Luciano Rodriguez MD Unavailable Encounter Details Date Type Department Care Team (Latest Contact Info) Description 09/28/2016 Orders Only [facility] Provider, MD Sourav [address] [place] [address] Social History Tobacco Use Types Packs/Day Years Used Date Smoking Tobacco: Never Assessed Sex and Gender Information Value Date Recorded Sex Assigned at Not on file Legal Sex Male 2:00 AM RAILROAD POLICE Gender Identity Not on file Sexual Orientation Not on file documented as of this encounter Plan of Treatment Not on file documented as of this encounter Procedures Procedure Name Priority Date/Time Associated Diagnosis Comments SCAN - LABS 10/07/2016 12:00 AM RAILROAD POLICE documented in this encounter Results * SCAN - LABS (10/07/2016 12:00 AM RAILROAD POLICE) Narrative 10/07/2016 12:00 AM RAILROAD POLICE Ordered by an unspecified provider. us Historical Provider Final Res ult documented in this encounter Visit Diagnoses Not on filedocumented in this encounter Additional Health Concerns Infection Onset Date Last Indicated Resolved Time COVID: Suspected 05/04/2023 05/04/2023 05/04/2023 8:26 PM CDT COVID: Suspected 03/04/2024 03/04/2024 03/04/2024 4:06 PM CDT documented as of this encounter Care Teams Business Applications Manager Relationship Specialty Start Date End Date Andrew Dawson MD PCP - General Cardiology 12/10/18 10/23/19 Andrew Dawson MD [address] [address] PCP - General Family Medicine 10/24/19 10/19/21 Vinicio Dinero MD [address] [place] [address] PCP - General Internal Medicine 10/20/21 12/13/22 Monae Velasquez MD [address] [place] [address] PCP - General Family Practice 12/14/22 Mushtaq Blake MD [address] [place] [address] Medical Oncologist/Hematologi st Hematology and Oncology 09/09/22 Miguel Ángel Sanchez MD [address] [place] [address] Consulting Physician Radiation Oncology 12/09/22 Emelyn Curtis MD [address] DIV IM MEDICAL ONCOLOGY, [address], [address], [address] [place] [address] Consulting Physician Medical Oncology 04/17/23 Heena Stephenson MD [address] [place] [address] Fellow General Surgery 04/17/23 Jeffery Bro MD [address] [place] [address] Referring Physician Gastroenterology 05/16/23 Anali Flores MD [address] [facility] [address] [place] [address] Consulting Physician Cardiology 05/22/23 [place] [address] [place] [address] Nurse Practitioner Pain Management 05/22/23 [place] [address] [place] [address] Consulting Physician Interventional Radiology 03/14/24 documented as of this encounter
--- OUTSIDE RECORDS SUMMARY | 2025-01-03 12:57 | XMS_ITS | Encounter Summary ---
Author Organization [facility] Address [address] [place] [address] Phone Care Team Providers Care Quality Assurance Tester Name Role Phone Marisa Carcamo PAC Primary Care Pro vider Reason for Visit * Reason Comments Medication Refill Encounter Details Date Type Department Care Team (Late st Contact Info) Description 11/30/2021 Refill [facility] - Internal Medicine - [place] [address] [place] [address] Marisa Carcamo, [facility] [address] [facility] [place] [address] Medication Refill Social History Tobacco [...] COVID-19? No / Unsure 11/15/2021 11:09 AM PORTFOLIO ANALYST documented as of this encounter Miscellaneous Notes [...] Office Visit Marisa Carcamo PAC [facility] [place] 11/08/21 Office Visit Marisa Carcamo PAC [facility] [place] 08/02/21 Office Visit Marisa Carcamo PAC [facility] [place] 06/04/21 Office Visit Marisa Carcamo PAC [facility] [place] Showing recent visits within past 182 days and meeting all other requirements Future Appointments Date Type Provider Dept 12/17/21 Appointment Marisa Carcamo PAC [facility] [place] Showing future appointments within next 90 days and meeting all other requirements Passed - Has an encounter in the past 6 months with a depression, anxiety, adjustment disorder, OCD, or PTSD visit diagnosis FOLIO ANALYST documented in this encounter Plan of Treatment Not on file documented as of this encounter Visit Diagnoses Not on filedocumented in this encounter Additional Health Concerns Assessment Noted Time PHQ-9 Depression Total Score: 11 021 3:00 PM PORTFOLIO ANALYST documented as of this encounter Care Teams Quality Assurance Tester Relationship Specialty Start Date End Date Marisa Carcamo PAC [address] [place] [address] PCP - General Physician Flume Worker 07/27/21 12/25/24 documented as of this encounter
--- OUTSIDE RECORDS SUMMARY | 2025-01-03 12:57 | XMS_ITS | Encounter Summary ---
Author Organization [facility] Address [address] [place] [address] Phone Care Team Providers Care Co Founder And Chief Strategy Officer Name Role Phone Marisa Carcamo PAC Primary Care Pro vider Reason for Visit * Reason Comments Medication Refill Encounter Details Date Type Department Care Team (Late st Contact Info) Description 02/11/2023 Refill [facility] - Internal Medicine - [place] [address] [place] [address] Marisa Carcamo, [facility] [address] [place] [address] Medication Refill Social History Tobacco [...] Depression Total Score: 11 021 3:00 PM PHARMACY ORDER ENTRY TECHNICIAN documented as of this encounter Care Teams Co Founder And Chief Strategy Officer Relationship Specialty Start Date End Date Marisa Carcamo PAC [address] [place] [address] PCP - General Physician Mine Equipment Design Engineer 07/27/21 12/25/24 documented as of this encounter
--- OUTSIDE RECORDS SUMMARY | 2025-01-03 12:57 | XMS_ITS | Encounter Summary ---
Author Organization [facility] Address [address] [facility] [place] [address] Care Team Providers Care Roll Edge Stitcher Hand Name Role Phone Andrew Dawson MD Primary Care Provider [phone] MD Unavailable [phone] Maddi Cantrell DO Primary Care Provider [phone] MD Unavailable [phone] Andrew Dawson MD Primary Care Provider [phone] Vinicio Dinero MD Primary Care Provider [phone] Reason for Visit * Reason Onset Date Comments Appointment 08/13/2018 Encounter Details Date Type Department Care Team (Late st Contact Info) Description 08/13/2018 Telephone [facility] Internal Medicine [address] [address] Maddi Cantrell DO [address] OF [facility] [place] [address] Appointment Social History Tobacco Use Types Packs/Day [...] the patient for 2:30 pm. 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
--- OUTSIDE RECORDS SUMMARY | 2025-01-03 12:57 | XMS_ITS | Encounter Summary ---
Author Organization [facility] Facility Care Team Providers Care Pension Administrator Name Role Phone Andrew Dawson MD Primary Care Provider [phone] Andrew Dawson MD Primary Care Provider [phone] Vinicio Dinero MD Primary Care Provider [phone] Mushtaq Blake MD Unavailable [phone] Miguel Ángel Sanchez MD Unavailable [phone] Monae Velasquez MD Primary Care Provider Emelyn Curtis MD Unavailable [phone] Heena Stephenson MD Unavailable [phone] Jeffery Bro MD Unavailable [phone] Anali Flores MD Unavailable [phone] Alessandro Dominguez NP Unavailable [phone] Luciano Rodriguez MD Unavailable Encounter Details Date Type Department Care Team (Latest Contact Info) Description 06/27/2016 Orders Only [facility] CLINCONV Provider, MD Sourav [address] [place] [address] Social History Tobacco Use Types Packs/Day Years Used Date Smoking Tobacco: Never Assessed Sex and Gender Information Value Date Recorded Sex Assigned at Not on file Legal 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 Gender Identity Not on file Sexual Orientation [...] documented as of this encounter Care Teams Pension Administrator Relationship Specialty Start Date End Date Andrew Dawson MD PCP - General Cardiology 12/10/18 10/23/19 Andrew Dawson MD [address] [address] PCP - General Family Medicine 10/24/19 10/19/21 Vinicio Dinero MD [address] [place] [address] PCP - General Internal Medicine 10/20/21 12/13/22 Monae Velasquez MD [address] [place] [address] PCP - General Family Practice 12/14/22 Mushtaq Blake MD [address] [place] [address] Medical Oncologist/Hematologi st Hematology and Oncology 09/09/22 Miguel Ángel Sanchez MD [address] [place] [address] Consulting Physician Radiation Oncology 12/09/22 Emelyn Curtis MD [address] DIV IM MEDICAL ONCOLOGY, [address] [place] [address] Consulting Physician Medical Oncology 04/17/23 Heena Stephenson MD [address] [place] [address] Fellow General Surgery 04/17/23 Jeffery Bro MD [address] [facility] [address] [place] [id number] Referring Physician Gastroenterology 05/16/23 Anali Flores MD [address] [facility] [address] [place] [address] Consulting Physician Cardiology 05/22/23 Alessandro Dominguez SLAB LIFTING SUPERVISOR [address] [place] [address] Nurse Practitioner Pain Management 05/22/23 [place] [address] [place] [address] Consulting Physician Interventional Radiology 03/14/24 documented as of this encounter
--- OUTSIDE RECORDS SUMMARY | 2025-01-03 12:57 | XMS_ITS | Encounter Summary ---
Author Organization [facility] Address [address] [place] [address] Phone Care Team Providers Care Violent Crimes Detective Name Role Phone Marisa Carcamo PAC Primary Care Pro vider Reason for Visit * Reason Comments Medication Refill Encounter Details Date Type Department Care Team (Late st Contact Info) Description 07/27/2022 Refill [facility] - Internal Medicine - [place] [address] [place] [address] Marisa Carcamo, [facility] [address] [place] [address] Medication Refill Social History Tobacco [...] PHQ-9 Depression Total Score: 021 3:00 PM DIRECTOR OF HOUSING documented as of this encounter Care Teams Violent Crimes Detective Relationship Specialty Start Date End Date Marisa Carcamo PAC [address] [place] [address] PCP - General Physician Apartment Leasing Consultant 07/27/21 12/25/24 documented as of this encounter
== END 2024-12-30 21:38 | disposition expired | DRG 951 ==
PROVIDERS: Admitting Provider Internal Medicine; Visit Provider Internal Medicine
DX: Z51.5 Encounter for palliative care (principal); C22.9 Malignant neoplasm of liver, not specified as primary or secondary; I13.0 Hypertensive heart and chronic kidney disease with heart failure and stage 1 through stage 4 chronic kidney disease, or unspecified chronic kidney disease; R45.1 Restlessness and agitation; F03.90 Unspecified dementia, unspecified severity, without behavioral disturbance, psychotic disturbance, mood disturbance, and anxiety; N40.0 Benign prostatic hyperplasia without lower urinary tract symptoms; I50.9 Heart failure, unspecified; N18.9 Chronic kidney disease, unspecified; I35.0 Nonrheumatic aortic (valve) stenosis; I48.0 Paroxysmal atrial fibrillation; J43.9 Emphysema, unspecified; E78.5 Hyperlipidemia, unspecified; M81.0 Age-related osteoporosis without current pathological fracture; K21.9 Gastro-esophageal reflux disease without esophagitis; H26.9 Unspecified cataract; F41.9 Anxiety disorder, unspecified; F32.A Depression, unspecified; F17.210 Nicotine dependence, cigarettes, uncomplicated; Z66 Do not resuscitate; Z86.19 Personal history of other infectious and parasitic diseases; Z87.442 Personal history of urinary calculi; Z86.718 Personal history of other venous thrombosis and embolism; Z86.0100 Personal history of colon polyps, unspecified; Z79.01 Long term (current) use of anticoagulants; Z79.899 Other long term (current) drug therapy; Z79.82 Long term (current) use of aspirin; Z86.73 Personal history of transient ischemic attack (TIA), and cerebral infarction without residual deficits
CPT/HCPCS: 96374; 96375; 99285; A9270; J0780; J1171; J1596; J3360